=== PATIENT | male | born 1960 | race Caucasian/White ===

== ENCOUNTER 2018-04-15 18:20 | Inpatient (IN) | payer MEDICARE, MEDICAID ==
--- NOTE | 2018-04-15 18:44 | ED Physician Chart ---
ED Chief Complaint/HPI - Patient Information Date Seen:: 04/15/18 Time Seen:: 18:30 Chief Complaint:: inappropriate sexual behavior History of Present Illness:: Patient was sent here from his extended care facility for possible admission to [facility] department. He had reportedly been exhibiting inappropriate sexual behavior towards the female staff. Allergies:: Allergies Allergy/AdvReac Type Severity Reaction Status Date / Time No Known Allergies Allergy Verified 04/15/18 18:28 Historian:: Patient, EMS Review:: Nurse's Note Reviewed, Transfer documents Reviewed ED Review of Systems - Review of Systems General/Constitutional: No fever, No chills, No weight loss, No weakness, No diaphoresis, No edema, No loss of appetite Skin: No skin lesions, No rash, No bruising Head: No headache, No light-headedness Eyes: No loss of vision, No pain, No diplopia ENT: No earache, No nasal drainage, No sore throat, No tinnitus Neck: No neck pain, No swelling, No thyromegaly, No stiffness, No mass noted Cardio Vascular: No chest pain, No palpitations, No PND, No orthopnea, No edema Pulmonary: No SOB, No cough, No sputum, No wheezing GI: No nausea, No vomiting, No diarrhea, No pain, No melena, No hematochezia, No constipation, No hematemesis G/U: No dysuria, No frequency, No hematuria Musculoskeletal: No bone or joint pain, No back pain, No muscle pain Endocrine: No polyuria, No polydipsia Psychiatric: No depression, No anxiety, No suicidal ideation, Other (C under physical exam) Hematopoietic: No bruising, No lymphadenopathy Allergic/Immuno: No urticaria, No angioedema Neurological: No syncope, No focal symptoms, No weakness, No paresthesia, No headache, No seizure, No dizziness, No confusion, No vertigo ED Past Medical History - Past Medical History Obtainable: Yes Past Medical History: DM, CVA/TIA, Seizures, Other (history of dysphagia; status post pneumonia; history of pneumonia; status post TIA and CVA; ) Surgical History: PEG/GTube, other (left frontal craniotomy) Psychiatricy History: Other Medication: Reviewed (C physical exam) Family Medical History - Family Member Mother History Unknown: Yes Ethnicity: Unknown Living Status: Unknown Hx Family Cancer: (unknown) Hx Family Coronary Artery Disease: (unknown) Hx Family Congestive Heart Failure: (unknown) Hx Family Hypertension: (unknown) Hx Family Stroke: (unknown) Hx Family Diabetes: (unknown) Hx Family Seizures: (unknown) Hx Family Dementia: (unknown) Hx Family AIDS: (unknown) Hx Family COPD: (unknown) Hx Family Hepatitis: (unknown) Hx Family Psychiatric Problems: (unknown) Hx Family Tuberculosis: (unknown) ED Physical Exam - Physical Examination General/Constitutional: Awake, Well-developed, well-nourished, Alert, No distress Other Gen/Cons comments:: Does not know the correct year Head: Atraumatic Eyes: Lids, conjuctiva normal, PERRL Skin: Nl inspection, No rash, No skin lesions, No ecchymosis ENMT: External ears, nose nl, TM canals nl, Nasal exam nl Other ENMT comments:: Edentulous Neck: No nuchal rigidity Respiratory: No Wheeze/Rhonchi/Rales Other Respiratory comments:: Harsh breath sounds Cardio Vascular: RRR, No murmur, gallop, rubs GI: No tenderness/rebounding/guarding : No CVA tenderness Extremities: Normal digits & nails Neuro/Psych: No focal deficits Misc: Normal back ED Labs/Radiology/EKG Results - EKG Interpretations Rate & Rhythm: normal sinus rhythm with a rate of 83 Dickinson: normal ED Assessment - Assessment General Assessment: Signed out to Dr. Umanzor at 1900. ED Septic Shock - . Is Septic Shock (SBP<90, OR Lactate>4 mmol\L) present?: No ED Reassessment (Disposition) - Reassessment Reassessment Condition:: Unchanged - Diagnosis Diagnosis:: Inappropriate sexual behavior - Patient Disposition Admitted to:: [facility] Admitting Medical Physician:: Cinthia Sanders Admitting Psych Physician:: Jose F Carrion Condition at Disposition:: Stable, Unchanged
[2018-04-15 19:01] LABS: % BASOPHILS 0.8 % (0.0-2.0); % EOSINOPHILS 5.2 % (0.0-5.0); % LYMPHOCYTES 19.8 % (20.0-50.0); % MONOCYTES 6.9 % (2.0-10.0); % NEUTROPHILS 67.3 % (40.0-80.0); BASOPHILE ABSOLUTE 0.1 Th/cumm (0-0.2); EOSINOPHILE ABSOLUTE 0.7 Th/cmm (0.1-0.4); HEMATOCRIT 39.3 % (41.0-60); HEMOGLOBIN 13.2 gm/dL (12-16); LYMPHOCYTE ABSOLUTE 2.6 Th/cmm (1.5-3.0); MEAN CORPUSCULAR HGB CONC 33.7 pg (28.0-36.0); MEAN PLATELET VOLUME 6.8 fl; MONOCYTE ABSOLUTE 0.9 Th/cmm (0.3-1.0); NEUTROPHILE ABSOLUTE 8.7 Th/cmm (1.8-8.0); PLATELET COUNT 376 Th/cmm (150-400); RED BLOOD COUNT 4.57 Mil/cmm (4.30-5.70); RED CELL DISTRIBUTION WIDTH 14.9 % (11.5-20.0)
[2018-04-15 19:21] LABS: ACETAMINOPHEN < 10.0 ug/mL (10.0-30.0); ALB/GLOB RATIO 1.4 (1.0-1.8); ALBUMIN 3.7 gm/dL (4.2-5.5); ALKALINE PHOSPHATASE 97 U/L (34-104); ANION GAP 11.9 (7.0-16.0); BILIRUBIN,TOTAL 0.2 mg/dL (0.3-1.0); BUN - UREA NITROGEN 15 mg/dL (7-25); CARBON DIOXIDE 25.2 mEq/L (21.0-31.0); CHLORIDE 104 mEq/L (98-107); CHOLESTEROL 175 mg/dL (<200); CREATININE - SERUM 0.7 mg/dL (0.7-1.3); GFR AFRICAN-AMERICAN > 60.0 ml/min (>90); GFR NON AFRICAN-AMERICAN > 60.0 ml/min; GLUCOSE 110 mg/dL (70-105); HDL -HIGH DENSITY LIPOPROTEIN 40 mg/dL (23-92); POTASSIUM SERUM 4.1 mEq/L (3.5-5.1); SALICYLATES (ASPIRIN) < 25.0 mg/L (30.0-100.0); SGOT 11 U/L (13-39); SGPT/ALT 12 U/L (7-52); SODIUM SERUM 137 mEq/L (136-145); TOTAL PROTEIN,SERUM 6.4 gm/dL (6.0-8.3); TRIGLYCERIDES 197 mg/dL (<150)
[2018-04-15 20:04] LABS: URINE MICROSCOPIC INDICATED? YES; URINE SOURCE CLEAN C
[2018-04-15 20:07] LABS: URINE BILIRUBIN NEGATIVE (NEGATIVE); URINE BLOOD NEGATIVE (NEGATIVE); URINE GLUCOSE (UA) NEGATIVE (NEGATIVE); URINE KETONE NEGATIVE (NEGATIVE); URINE LEUKOCYTE ESTERASE NEGATIVE (NEGATIVE); URINE NITRATE NEGATIVE (NEGATIVE); URINE PH 6.5 (4.6 - 8.0); URINE PROTEIN NEGATIVE (NEGATIVE); URINE UROBILINOGEN 0.2 E.U./dL (0.2 - 1.0)
[2018-04-15 20:23] LABS: URINE CLARITY CLEAR (CLEAR); URINE COLOR YELLOW
[2018-04-15 20:24] LABS: URINE BACTERIA OCCASIONAL /hpf (NONE SEEN); URINE EPITHELIAL CELLS OCCASIONAL /lpf (FEW); URINE RBC NONE SEEN /hpf (0-5); URINE WBC 0-2 /hpf (0-5)
[2018-04-15 20:25] LABS: AMPHETAMINE URINE NEGATIVE (NEGATIVE); BARBITURATES URINE NEGATIVE (NEGATIVE); BENZODIAZEPINES QUAL URINE POSITIVE (NEGATIVE); CANNABINOID THC NEGATIVE (NEGATIVE); COCAINE METABOLITE QUAL URINE NEGATIVE (NEGATIVE); METHADONE URINE NEGATIVE (NEGATIVE); METHAMPHETAMINES QUAL URINE NEGATIVE (NEGATIVE); OPIATES (MORPHINE) QUAL. URINE NEGATIVE (NEGATIVE); PHENCYCLIDINE (PCP) URINE NEGATIVE (NEGATIVE); TRICYCLICS (TCA) QUAL. URINE NEGATIVE (NEGATIVE)
[2018-04-15 21:44] VITALS: BP 129/99
[2018-04-15] MEDS ORDERED: Fleet Enema 135 mL RC PRN (22:29)
[2018-04-15] MEDS ORDERED: Magnesium Hydroxide (MOM) 30 mL UDC GT PRN (22:29)
[2018-04-16] MEDS: Pantoprazole 40 mg/Packet GT SCH (06:36)
[2018-04-16] MEDS ORDERED: PANTOPRAZOLE SODIUM 20 MG GT SCH (07:30)
--- NOTE | 2018-04-16 08:33 | Diagnostic Imaging Report ---
Portable chest x-ray Time: 1942 History: CVA Allowing for portable technique the heart size is normal. No focal pulmonary parenchymal processes. No hilar or mediastinal abnormalities. Impression: No acute abnormalities.
[2018-04-16] MEDS ORDERED: Non-Formulary Item 1 EA (Cranberry Fruit [Cranberry] 450 MG) GT SCH (09:00)
[2018-04-16] MEDS: Ferrous Sulfate 300 MG/5 ML UDC PO SCH (09:01)
[2018-04-16] MEDS: Potassium Chloride Elixir 20 mEq /15 mL UDC GT SCH (09:01)
[2018-04-16] MEDS: Aspirin 81mg Chewable Tab GT SCH (09:04)
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
[2018-04-16 19:03] LABS: A1C % 6.3 % (4.0-6.0)
--- NOTE | 2018-04-17 04:58 | Psychiatric Evaluation ---
DATE OF SERVICE: 04/15/2018 PSYCHIATRIC INITIAL EVALUATION PATIENT'S AGE: 57-year-old. SEX: Male. PHYSICIAN: Dr. Carrion. CHIEF COMPLAINT: Agitation and irritability. HISTORY OF PRESENT ILLNESS: The patient is a 57-year-old male who was transferred from [facility] in [place] because of increased agitation and also aggressive behavior. The patient also was walking around the facility naked and had difficulty following the staff direction. The patient also has been in angry and in irritable mood and has been easily agitated. Also, has been exhibiting sexual inappropriate behavior. PAST PSYCHIATRIC HISTORY: The patient has a history of what seems to be psychosis versus schizoaffective disorder. PAST MEDICAL HISTORY: The patient had G-tube placed because of history of poor appetite. Otherwise, no major medical problems known. SOCIAL HISTORY: The patient lives in [facility]. No known alcohol or drug use. ALLERGIES: No known allergies. MENTAL STATUS EXAMINATION: The patient appears older than stated age. Irritable mood. Angry. Flat affect. Thought processes are circumstantial and tangential with flight of ideas. The patient denies auditory or visual hallucinations, but seems to be actively responding. The patient denies suicidal or homicidal ideations. The patient is alert and oriented to situation and place and person, but not to date. Impaired immediate memory, but intact, recent and remote memories. Poor insight and poor judgment. ASSESSMENT: PRIMARY DIAGNOSIS: Schizoaffective disorder, bipolar type, severe, with psychotic features. TREATMENT PLAN: Monitor the patient's behavior closely. We will start individual as well as milieu psychotherapy. Also, we will start the patient on Seroquel and we will adjust the dose. ESTIMATED LENGTH OF STAY: 5-7 days. THE PATIENT'S STRENGTHS AND WEAKNESSES: The patient's strength is not clear at this time. Weakness is poor impulse control and inappropriate sexual behavior and his psychosis. AFTER DISCHARGE PLAN: Outpatient treatment and followup will continue as an outpatient and the patient will return to [facility]. JOB# [id number]
[2018-04-17] MEDS: Pantoprazole 40 mg/Packet GT SCH (06:43)
[2018-04-17] MEDS: Aspirin 81mg Chewable Tab GT SCH (09:37)
[2018-04-17] MEDS: Ferrous Sulfate 300 MG/5 ML UDC PO SCH (09:37)
[2018-04-17] MEDS: Potassium Chloride Elixir 20 mEq /15 mL UDC GT SCH (09:39)
--- NOTE | 2018-04-17 12:03 | General Progress Note ---
Subjective - Review of Systems Events since last encounter: patient irritable confused Objective - Results Result Diagrams: 04/15/18 18:50 04/15/18 18:50 Recent Labs: Laboratory Last Values WBC 13.0 Th/cmm (4.8-10.8) H 04/15/18 18:50 RBC 4.57 Mil/cmm (4.30-5.70) 04/15/18 18:50 Hgb 13.2 gm/dL (12-16) 04/15/18 18:50 Hct 39.3 % (41.0-60) L 04/15/18 18:50 MCV 86.0 fl (80-99) 04/15/18 18:50 MCH 29.0 pg (26.0-30.0) 04/15/18 18:50 MCHC Differential 33.7 pg (28.0-36.0) 04/15/18 18:50 RDW 14.9 % (11.5-20.0) 04/15/18 18:50 Plt Count 376 Th/cmm (150-400) 04/15/18 18:50 MPV 6.8 fl 04/15/18 18:50 Neutrophils % 67.3 % (40.0-80.0) 04/15/18 18:50 Lymphocytes % 19.8 % (20.0-50.0) L 04/15/18 18:50 Monocytes % 6.9 % (2.0-10.0) 04/15/18 18:50 Eosinophils % 5.2 % (0.0-5.0) H 04/15/18 18:50 Basophils % 0.8 % (0.0-2.0) 04/15/18 18:50 Sodium 137 mEq/L (136-145) 04/15/18 18:50 Potassium 4.1 mEq/L (3.5-5.1) 04/15/18 18:50 Chloride 104 mEq/L (98-107) 04/15/18 18:50 Carbon Dioxide 25.2 mEq/L (21.0-31.0) 04/15/18 18:50 Anion Gap 11.9 (7.0-16.0) 04/15/18 18:50 BUN 15 mg/dL (7-25) 04/15/18 18:50 Creatinine 0.7 mg/dL (0.7-1.3) 04/15/18 18:50 Est GFR ( Amer) > 60.0 ml/min (>90) 04/15/18 18:50 Est GFR (Non-Af Amer) > 60.0 ml/min 04/15/18 18:50 BUN/Creatinine Ratio 21.4 04/15/18 18:50 Glucose 110 mg/dL (70-105) H 04/15/18 18:50 Hemoglobin A1c % 6.3 % (4.0-6.0) H 04/15/18 18:50 Calcium 9.0 mg/dL (8.6-10.3) 04/15/18 18:50 Total Bilirubin 0.2 mg/dL (0.3-1.0) L 04/15/18 18:50 AST 11 U/L (13-39) L 04/15/18 18:50 ALT 12 U/L (7-52) 04/15/18 18:50 Alkaline Phosphatase 97 U/L (34-104) 04/15/18 18:50 Total Protein 6.4 gm/dL (6.0-8.3) 04/15/18 18:50 Albumin 3.7 gm/dL (4.2-5.5) L 04/15/18 18:50 Globulin 2.7 gm/dL 04/15/18 18:50 Albumin/Globulin Ratio 1.4 (1.0-1.8) 04/15/18 18:50 Triglycerides 197 mg/dL (<150) H 04/15/18 18:50 Cholesterol 175 mg/dL (<200) 04/15/18 18:50 LDL Cholesterol Direct 120 mg/dL (75-193) 04/15/18 18:50 HDL Cholesterol 40 mg/dL (23-92) 04/15/18 18:50 TSH 0.96 uIU/ml (0.34-5.60) 04/15/18 18:50 Urine Source CLEAN C 04/15/18 19:00 Urine Color YELLOW 04/15/18 19:00 Urine Clarity CLEAR (CLEAR) 04/15/18 19:00 Urine pH 6.5 (4.6 - 8.0) 04/15/18 19:00 Ur Specific [place] 1.015 (1.005-1.030) 04/15/18 19:00 Urine Protein NEGATIVE mg/dL (NEGATIVE) 04/15/18 19:00 Urine Glucose (UA) NEGATIVE mg/dL (NEGATIVE) 04/15/18 19:00 Urine Ketones NEGATIVE mg/dL (NEGATIVE) 04/15/18 19:00 Urine Blood NEGATIVE (NEGATIVE) 04/15/18 19:00 Urine Nitrate NEGATIVE (NEGATIVE) 04/15/18 19:00 Urine Bilirubin NEGATIVE (NEGATIVE) 04/15/18 19:00 Urine Urobilinogen 0.2 E.U./dL (0.2 - 1.0) 04/15/18 19:00 Ur Leukocyte Esterase NEGATIVE (NEGATIVE) 04/15/18 19:00 Urine RBC NONE SEEN /hpf (0-5) 04/15/18 19:00 Urine WBC 0-2 /hpf (0-5) 04/15/18 19:00 Ur Epithelial Cells OCCASIONAL /lpf (FEW) 04/15/18 19:00 Urine Bacteria OCCASIONAL /hpf (NONE SEEN) 04/15/18 19:00 Salicylates < 25.0 mg/L (30.0-100.0) L 04/15/18 18:50 Urine Opiates Screen NEGATIVE (NEGATIVE) 04/15/18 19:00 Urine Methadone Screen NEGATIVE (NEGATIVE) 04/15/18 19:00 Acetaminophen < 10.0 ug/mL (10.0-30.0) L 04/15/18 18:50 Ur Barbiturates Screen NEGATIVE (NEGATIVE) 04/15/18 19:00 Ur Tricyclics Screen NEGATIVE (NEGATIVE) 04/15/18 19:00 Ur Phencyclidine Scrn NEGATIVE (NEGATIVE) 04/15/18 19:00 Amphetamines Screen NEGATIVE (NEGATIVE) 04/15/18 19:00 U Methamphetamines Scrn NEGATIVE (NEGATIVE) 04/15/18 19:00 U Benzodiazepines Scrn POSITIVE (NEGATIVE) H 04/15/18 19:00 U Cocaine Metab Screen NEGATIVE (NEGATIVE) 04/15/18 19:00 U Cannabinoids Screen NEGATIVE (NEGATIVE) 04/15/18 19:00 Ethyl Alcohol < 10 mg/dL (0-10) 04/15/18 18:50 - Physical Exam Vitals and I&O: Vital Signs Temp 98.2 F 04/17/18 06:32 Pulse 85 04/17/18 06:32 Resp 20 04/17/18 08:00 BP 127/72 04/17/18 06:32 Pulse Ox 95 04/17/18 06:32 Intake & Output 04/16/18 04/17/18 04/17/18 18:59 06:59 18:59 Intake Total 0 Balance 0 Weight (lbs) 111.13 kg Intake: Oral 0 Other: # Voids 3 # Bowel Movements 0 Weight Source Bedscale Active Medications: Current Medications Acetaminophen (Tylenol 650mg/20.3ml Suspension) 650 mg GT Q6HR PRN PRN Reason: MILD PAIN OR TEMP >100.5 Stop: 06/14/18 22:28 Acetylcysteine (Mucomyst 20%) 3 ml GT BID [facility] Stop: 06/15/18 08:59 Last Admin: 04/16/18 17:38 Dose: Not Given Ascorbic Acid (Vitamin C) 500 mg GT DAILY [facility] Stop: 06/15/18 08:59 Last Admin: 04/17/18 09:38 Dose: 500 mg Aspirin (Aspirin Chewable) 81 mg GT DAILY [facility] Stop: 06/15/18 08:59 Last Admin: 04/17/18 09:37 Dose: 81 mg Bisacodyl (Dulcolax 10 Mg Supp) 10 mg RC DAILY PRN PRN Reason: IF MOM INEFFECTIVE Stop: 06/14/18 22:28 Cephalexin Monohydrate (Keflex) 500 mg GT QID [facility] Stop: 04/20/18 22:00 Last Admin: 04/17/18 09:37 Dose: 500 mg Ferrous Sulfate (Iron) 300 mg PO DAILY [facility] Stop: 06/15/18 08:59 Last Admin: 04/17/18 09:37 Dose: 300 mg Lorazepam (Ativan) 1 mg GT Q4HR PRN; Protocol PRN Reason: Anxiety Stop: 05/15/18 21:44 Last Admin: 04/17/18 11:16 Dose: 1 mg Magnesium Hydroxide (Milk Of Magnesia) 30 ml GT HS PRN PRN Reason: Constipation Stop: 06/14/18 22:28 Midodrine (Proamatine) 5 mg GT TID [facility] Stop: 06/15/18 08:59 Last Admin: 04/17/18 09:44 Dose: 5 mg Pantoprazole Sodium (Protonix) 40 mg GT QDAC [facility] Stop: 06/15/18 07:29 Last Admin: 04/17/18 06:43 Dose: 40 mg Pioglitazone HCl (Actos) 15 mg GT DAILY [facility] Stop: 06/15/18 08:59 Last Admin: 04/17/18 09:37 Dose: 15 mg Potassium Chloride (Potassium Chloride Elixir) 20 meq GT DAILY [facility] Stop: 06/15/18 08:59 Last Admin: 04/17/18 09:39 Dose: 20 meq Quetiapine Fumarate (Seroquel) 50 mg PO TID [facility]; Protocol Stop: 06/15/18 08:59 Last Admin: 04/17/18 09:38 Dose: 50 mg Senna (Senna) 8.6 mg GT DAILY [facility] Stop: 06/15/18 08:59 Last Admin: 04/17/18 09:38 Dose: 8.6 mg Sodium Phosphate (Fleet Enema) 135 ml RC Q48H PRN PRN Reason: IF DULCOLAX INEFFECTIVE Stop: 06/14/18 22:28 Topiramate (Topamax) 100 mg GT DAILY [facility] Stop: 06/15/18 08:59 Last Admin: 04/17/18 09:38 Dose: 100 mg Zolpidem Tartrate (Ambien) 5 mg GT HS PRN PRN Reason: Insomnia Stop: 06/14/18 21:44 Last Admin: 04/15/18 22:06 Dose: 5 mg Assessment/Plan - Problem List Patient Problems: All Active Problems [employer] (Acute) Nutritional Asmnt/Malnutr-PDOC - Dietary Evaluation Malnutrition Findings (Please click <Entered> for more info): Nutritional Asmnt/Malnutrition Start: 04/16/18 14: 24 Text: Status: Complete Freq: Protocol: Document 04/16/18 14:24 LCHENG (Rec: 04/16/18 14:42 [email or web address] [id number]) Nutritional Asmnt/Malnutrition Patient General Information Nutritional Screening High Risk Diagnosis psychosis Pertinent Medical Hx/Surgical Hx DM, CVA/TIA, seizures, dysphagi, s/p PNA, PEG/Gtube, left frontal craniotomy Subjective Information Pt admited with Gtube noted. Pt seen sleeping soundly at time of visit. Spoke with RN, RN stated bolus TF was discontinued since pt is able to tolerate oral diet and ate very well, 100% of breakfast today. Gtube only for medications. Current Diet Order/ Nutrition Support pureed, nectar thick Pertinent Medications vit C, Iron, protonix, seroquel, kcl, senna Pertinent Labs 04/15 Glu 110, abl 3.7, triglycerides Nutritional Hx/Data Height 1.75 m Height (Calculated Centimeters) 175.3 Current Weight (lbs) 111.13 kg Weight (Calculated Kilograms) 111.1 Weight (Calculated Grams) 515839.1 [place] Body Weight 160 Body Mass Index (BMI) 36.1 Weight Status Overweight GI Symptoms GI Symptoms None Last BM none Difficult in: None Skin Integrity/Comment: dryness Current %PO Good (75-100%) Estimated Nutritional Goals BEE in Kcals: Adj wt of IBW Calories/Kcals/Kg 25-30 Kcals Calculated 1011-8394 Protein: Adj wt of IBW Protein g/k Protein Calculated 82 Fluid: ml 2049-246ml (1ml/kcal) Nutritional Problem No current Nutrition Prob Problem N/A Malnutrition Alert Is there a minimum of two criteria No selected? Query Text:Check all the applicable criteria. A minimum of two criteria are recommended for diagnosis of either severe or non-severe malnutrition. Malnutrition Related to Morbid Obesity Malnutrition related to morbid obesity No Intervention/Recommendation Comments 1. Continue with pureed nectar thick diet as ordered. 2. Monitor PO intake, wt, labs and skin integrity 3. F/U as low risk in 7 days, 04/23, PO check 04/19 Expected Outcomes/Goals Expected Outcomes/Goals 1. PO intake to meet at least 75% of nutritional needs. 2. Wt stability, skin to remain intact, labs to approach WNL.
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
[2018-04-18] MEDS: Pantoprazole 40 mg/Packet GT SCH (06:30)
--- NOTE | 2018-04-18 08:45 | Diagnostic Imaging Report ---
CHEST X-RAY: AP view INDICATION: Pneumonia COMPARISON: 04/15/2017 FINDINGS: Slight increased right basal lung markings are noted. There is 3 mm nodularity of the right upper lung zone projecting between third and fourth right ribs. There is no focal consolidation or pleural effusions The heart is normal in size. The osseous structures demonstrate no acute abnormalities. IMPRESSION: Slight increased right basal lung markings favoring atelectasis versus less likely infiltrate. No focal consolidation identified. 3 mm nodularity of the right lower lung zone projecting along the third and fourth right ribs. Findings may be due to a small granuloma. Correlation with old exams would be helpful for comparison. Consider short-term follow-up x-ray or CT in 3 months.
[2018-04-18] MEDS: Aspirin 81mg Chewable Tab GT SCH (10:07)
[2018-04-18] MEDS: Potassium Chloride Elixir 20 mEq /15 mL UDC GT SCH (10:07)
[2018-04-18] MEDS: Ferrous Sulfate 300 MG/5 ML UDC PO SCH (10:09)
[2018-04-18] MEDS ORDERED: Haloperidol Lactate 5 mg/mL 1mL Vial ONE (11:32)
[2018-04-18] MEDS: NYSTATIN 100000 UNITS/GM POWD TP SCH ×2 (13:00→17:21)
[2018-04-18] MEDS: Haloperidol Lactate 5 mg/mL 1mL Vial IM ONE (13:02)
[2018-04-18] MEDS: Albuterol Nebulizer 2.5mg/3mL HHN PRN (19:06)
[2018-04-19] MEDS: Pantoprazole 40 mg/Packet GT SCH (06:43)
[2018-04-19] MEDS: Albuterol Nebulizer 2.5mg/3mL HHN PRN (07:00)
[2018-04-19] MEDS: NYSTATIN 100000 UNITS/GM POWD TP SCH ×2 (08:08→16:45)
[2018-04-19] MEDS: Ferrous Sulfate 300 MG/5 ML UDC PO SCH (08:08)
[2018-04-19] MEDS: Aspirin 81mg Chewable Tab GT SCH (08:09)
[2018-04-19] MEDS: Potassium Chloride Elixir 20 mEq /15 mL UDC GT SCH (08:11)
[2018-04-19] MEDS ORDERED: Haloperidol Lactate 5 mg/mL 1mL Vial ONE (10:21)
--- NOTE | 2018-04-19 10:22 | Infectious Disease Prog Note ---
Infectious Disease Subjective - Review of Systems Service Date: 04/19/18 Subjective: There is no new change, no fever. Infectious Disease Objective - Results Result Diagrams: 04/15/18 18:50 04/15/18 18:50 Recent Labs: Laboratory Last Values WBC 13.0 Th/cmm (4.8-10.8) H 04/15/18 18:50 RBC 4.57 Mil/cmm (4.30-5.70) 04/15/18 18:50 Hgb 13.2 gm/dL (12-16) 04/15/18 18:50 Hct 39.3 % (41.0-60) L 04/15/18 18:50 MCV 86.0 fl (80-99) 04/15/18 18:50 MCH 29.0 pg (26.0-30.0) 04/15/18 18:50 MCHC Differential 33.7 pg (28.0-36.0) 04/15/18 18:50 RDW 14.9 % (11.5-20.0) 04/15/18 18:50 Plt Count 376 Th/cmm (150-400) 04/15/18 18:50 MPV 6.8 fl 04/15/18 18:50 Neutrophils % 67.3 % (40.0-80.0) 04/15/18 18:50 Lymphocytes % 19.8 % (20.0-50.0) L 04/15/18 18:50 Monocytes % 6.9 % (2.0-10.0) 04/15/18 18:50 Eosinophils % 5.2 % (0.0-5.0) H 04/15/18 18:50 Basophils % 0.8 % (0.0-2.0) 04/15/18 18:50 Sodium 137 mEq/L (136-145) 04/15/18 18:50 Potassium 4.1 mEq/L (3.5-5.1) 04/15/18 18:50 Chloride 104 mEq/L (98-107) 04/15/18 18:50 Carbon Dioxide 25.2 mEq/L (21.0-31.0) 04/15/18 18:50 Anion Gap 11.9 (7.0-16.0) 04/15/18 18:50 BUN 15 mg/dL (7-25) 04/15/18 18:50 Creatinine 0.7 mg/dL (0.7-1.3) 04/15/18 18:50 Est GFR ( Amer) > 60.0 ml/min (>90) 04/15/18 18:50 Est GFR (Non-Af Amer) > 60.0 ml/min 04/15/18 18:50 BUN/Creatinine Ratio 21.4 04/15/18 18:50 Glucose 110 mg/dL (70-105) H 04/15/18 18:50 Hemoglobin A1c % 6.3 % (4.0-6.0) H 04/15/18 18:50 Calcium 9.0 mg/dL (8.6-10.3) 04/15/18 18:50 Total Bilirubin 0.2 mg/dL (0.3-1.0) L 04/15/18 18:50 AST 11 U/L (13-39) L 04/15/18 18:50 ALT 12 U/L (7-52) 04/15/18 18:50 Alkaline Phosphatase 97 U/L (34-104) 04/15/18 18:50 Total Protein 6.4 gm/dL (6.0-8.3) 04/15/18 18:50 Albumin 3.7 gm/dL (4.2-5.5) L 04/15/18 18:50 Globulin 2.7 gm/dL 04/15/18 18:50 Albumin/Globulin Ratio 1.4 (1.0-1.8) 04/15/18 18:50 Triglycerides 197 mg/dL (<150) H 04/15/18 18:50 Cholesterol 175 mg/dL (<200) 04/15/18 18:50 LDL Cholesterol Direct 120 mg/dL (75-193) 04/15/18 18:50 HDL Cholesterol 40 mg/dL (23-92) 04/15/18 18:50 TSH 0.96 uIU/ml (0.34-5.60) 04/15/18 18:50 Urine Source CLEAN C 04/15/18 19:00 Urine Color YELLOW 04/15/18 19:00 Urine Clarity CLEAR (CLEAR) 04/15/18 19:00 Urine pH 6.5 (4.6 - 8.0) 04/15/18 19:00 Ur Specific [place] 1.015 (1.005-1.030) 04/15/18 19:00 Urine Protein NEGATIVE mg/dL (NEGATIVE) 04/15/18 19:00 Urine Glucose (UA) NEGATIVE mg/dL (NEGATIVE) 04/15/18 19:00 Urine Ketones NEGATIVE mg/dL (NEGATIVE) 04/15/18 19:00 Urine Blood NEGATIVE (NEGATIVE) 04/15/18 19:00 Urine Nitrate NEGATIVE (NEGATIVE) 04/15/18 19:00 Urine Bilirubin NEGATIVE (NEGATIVE) 04/15/18 19:00 Urine Urobilinogen 0.2 E.U./dL (0.2 - 1.0) 04/15/18 19:00 Ur Leukocyte Esterase NEGATIVE (NEGATIVE) 04/15/18 19:00 Urine RBC NONE SEEN /hpf (0-5) 04/15/18 19:00 Urine WBC 0-2 /hpf (0-5) 04/15/18 19:00 Ur Epithelial Cells OCCASIONAL /lpf (FEW) 04/15/18 19:00 Urine Bacteria OCCASIONAL /hpf (NONE SEEN) 04/15/18 19:00 Salicylates < 25.0 mg/L (30.0-100.0) L 04/15/18 18:50 Urine Opiates Screen NEGATIVE (NEGATIVE) 04/15/18 19:00 Urine Methadone Screen NEGATIVE (NEGATIVE) 04/15/18 19:00 Acetaminophen < 10.0 ug/mL (10.0-30.0) L 04/15/18 18:50 Ur Barbiturates Screen NEGATIVE (NEGATIVE) 04/15/18 19:00 Ur Tricyclics Screen NEGATIVE (NEGATIVE) 04/15/18 19:00 Ur Phencyclidine Scrn NEGATIVE (NEGATIVE) 04/15/18 19:00 Amphetamines Screen NEGATIVE (NEGATIVE) 04/15/18 19:00 U Methamphetamines Scrn NEGATIVE (NEGATIVE) 04/15/18 19:00 U Benzodiazepines Scrn POSITIVE (NEGATIVE) H 04/15/18 19:00 U Cocaine Metab Screen NEGATIVE (NEGATIVE) 04/15/18 19:00 U Cannabinoids Screen NEGATIVE (NEGATIVE) 04/15/18 19:00 Ethyl Alcohol < 10 mg/dL (0-10) 04/15/18 18:50 RPR NONREACTIVE (NONREACTIVE) 04/15/18 18:50 HIV 1&2 Antibody Screen NEGATIVE (NEG) 04/18/18 08:20 - Physical Exam Vitals and I&O: Vital Signs Temp 97.2 F 04/19/18 06:31 Pulse 95 04/19/18 07:00 Resp 20 04/19/18 07:00 BP 115/65 04/19/18 06:31 Pulse Ox 94 04/19/18 07:00 Intake & Output 04/18/18 04/19/18 04/19/18 18:59 06:59 18:59 Intake Total 1120 Balance 1120 Intake: Oral 1120 Other: # Voids 3 # Bowel Movements 1 Active Medications: Current Medications Acetaminophen (Tylenol 650mg/20.3ml Suspension) 650 mg GT Q6HR PRN PRN Reason: MILD PAIN OR TEMP >100.5 Stop: 06/14/18 22:28 Acetylcysteine (Mucomyst 20%) 3 ml GT BID [facility] Stop: 06/15/18 08:59 Last Admin: 04/19/18 07:00 Dose: 3 ml Albuterol Sulfate (Albuterol 2.5mg/3ml Neb Ud) 2.5 mg HHN BIDRT PRN PRN Reason: Wheezing Stop: 06/16/18 17:55 Last Admin: 04/19/18 07:00 Dose: 2.5 mg Ascorbic Acid (Vitamin C) 500 mg GT DAILY [facility] Stop: 06/15/18 08:59 Last Admin: 04/19/18 08:09 Dose: 500 mg Aspirin (Aspirin Chewable) 81 mg GT DAILY [facility] Stop: 06/15/18 08:59 Last Admin: 04/19/18 08:09 Dose: 81 mg Bisacodyl (Dulcolax 10 Mg Supp) 10 mg RC DAILY PRN PRN Reason: IF MOM INEFFECTIVE Stop: 06/14/18 22:28 Cephalexin Monohydrate (Keflex) 500 mg GT QID [facility] Stop: 04/20/18 22:00 Last Admin: 04/19/18 08:09 Dose: 500 mg Ferrous Sulfate (Iron) 300 mg PO DAILY [facility] Stop: 06/15/18 08:59 Last Admin: 04/19/18 08:08 Dose: 300 mg Lorazepam (Ativan) 1 mg GT Q4HR PRN; Protocol PRN Reason: Anxiety Stop: 05/15/18 21:44 Last Admin: 04/18/18 10:07 Dose: 1 mg Magnesium Hydroxide (Milk Of Magnesia) 30 ml GT HS PRN PRN Reason: Constipation Stop: 06/14/18 22:28 Midodrine (Proamatine) 5 mg GT TID [facility] Stop: 06/15/18 08:59 Last Admin: 04/19/18 08:10 Dose: 5 mg Mupirocin (Bactroban Oint) 1 appl NS BID [facility] Stop: 04/22/18 17:01 Last Admin: 04/19/18 08:09 Dose: 1 appl Nystatin (Nystop) 0 units TP BID [facility] Stop: 06/16/18 16:59 Last Admin: 04/19/18 08:08 Dose: 100,000 units Ondansetron HCl (Zofran Odt) 4 mg PO Q6H PRN PRN Reason: Nausea / Vomiting Stop: 06/16/18 17:52 Pantoprazole Sodium (Protonix) 40 mg GT QDAC [facility] Stop: 06/15/18 07:29 Last Admin: 04/19/18 06:43 Dose: 40 mg Pioglitazone HCl (Actos) 15 mg GT DAILY [facility] Stop: 06/15/18 08:59 Last Admin: 04/19/18 08:09 Dose: 15 mg Potassium Chloride (Potassium Chloride Elixir) 20 meq GT DAILY [facility] Stop: 06/15/18 08:59 Last Admin: 04/19/18 08:11 Dose: 20 meq Quetiapine Fumarate (Seroquel) 50 mg PO TID [facility]; Protocol Stop: 06/15/18 08:59 Last Admin: 04/19/18 08:08 Dose: 50 mg Senna (Senna) 8.6 mg GT DAILY [facility] Stop: 06/15/18 08:59 Last Admin: 04/19/18 08:09 Dose: 8.6 mg Sodium Phosphate (Fleet Enema) 135 ml RC Q48H PRN PRN Reason: IF DULCOLAX INEFFECTIVE Stop: 06/14/18 22:28 Topiramate (Topamax) 100 mg GT DAILY [facility] Stop: 06/15/18 08:59 Last Admin: 04/19/18 08:08 Dose: 100 mg Zolpidem Tartrate (Ambien) 5 mg GT HS PRN PRN Reason: Insomnia Stop: 06/14/18 21:44 Last Admin: 04/17/18 21:36 Dose: 5 mg General: no acute distress, well developed, well nourished HEENT: atraumatic, normocephalic, PERRLA Neck: supple, no thyromegaly Cardiovascular: S1S2, regular Lungs: clear to auscultation bilaterally, clear to percussion Abdomen: soft, no tender, no distended, no mass, no rebound, no hepatomegaly, no splenomegaly Extremities: no cyanosis, no clubbing, no edema Neurological: awake, alert, oriented Skin: intact Infectious Disease Assmt/Plan - Problem List Patient Problems: All Active Problems [employer] STAFF (Acute) - Assessment Assessment: Leukocytosis Psychosis - Plan Plan: Check CBC. Nutritional Asmnt/Malnutr-PDOC - Dietary Evaluation Malnutrition Findings (Please click <Entered> for more info): Nutritional Asmnt/Malnutrition Start: 04/16/18 14: 24 Text: Status: Complete Freq: Protocol: Document 04/16/18 14:24 [email or web address] (Rec: 04/16/18 14:42 [email or web address]) Nutritional Asmnt/Malnutrition Patient General Information Nutritional Screening High Risk Diagnosis psychosis Pertinent Medical Hx/Surgical Hx DM, CVA/TIA, seizures, dysphagi, s/p PNA, PEG/Gtube, left frontal craniotomy Subjective Information Pt admited with Gtube noted. Pt seen sleeping soundly at time of visit. Spoke with RN, RN stated bolus TF was discontinued since pt is able to tolerate oral diet and ate very well, 100% of breakfast today. Gtube only for medications. Current Diet Order/ Nutrition Support pureed, nectar thick Pertinent Medications vit C, Iron, protonix, seroquel, kcl, senna Pertinent Labs 04/15 Glu 110, abl 3.7, triglycerides Nutritional Hx/Data Height 1.75 m Height (Calculated Centimeters) 175.3 Current Weight (lbs) 111.13 kg Weight (Calculated Kilograms) 111.1 Weight (Calculated Grams) 932384.1 [place] Body Weight 160 Body Mass Index (BMI) 36.1 Weight Status Overweight GI Symptoms GI Symptoms None Last BM none Difficult in: None Skin Integrity/Comment: dryness Current %PO Good (75-100%) Estimated Nutritional Goals BEE in Kcals: Adj wt of IBW Calories/Kcals/Kg 25-30 Kcals Calculated 6060-8020 Protein: Adj wt of IBW Protein g/k Protein Calculated 82 Fluid: ml 2050-2460ml (1ml/kcal) Nutritional Problem No current Nutrition Prob Problem N/A Malnutrition Alert Is there a minimum of two criteria No selected? Query Text:Check all the applicable criteria. A minimum of two criteria are recommended for diagnosis of either severe or non-severe malnutrition. Malnutrition Related to Morbid Obesity Malnutrition related to morbid obesity No Intervention/Recommendation Comments 1. Continue with pureed nectar thick diet as ordered. 2. Monitor PO intake, wt, labs and skin integrity 3. F/U as low risk in 7 days, 04/23, PO check 04/19 Expected Outcomes/Goals Expected Outcomes/Goals 1. PO intake to meet at least 75% of nutritional needs. 2. Wt stability, skin to remain intact, labs to approach WNL.
[2018-04-19] MEDS ORDERED: Haloperidol Lactate 5 mg/mL 1mL Vial IM ONE (10:39)
[2018-04-19] MEDS: Haloperidol Lactate 5 mg/mL 1mL Vial IM ONE (10:42)
[2018-04-19 11:07] LABS: % BASOPHILS 0.4 % (0.0-2.0); % EOSINOPHILS 2.7 % (0.0-5.0); % LYMPHOCYTES 18.1 % (20.0-50.0); % NEUTROPHILS 71.8 % (40.0-80.0); EOSINOPHILE ABSOLUTE 0.3 Th/cmm (0.1-0.4); HEMATOCRIT 38.9 % (41.0-60); LYMPHOCYTE ABSOLUTE 1.7 Th/cmm (1.5-3.0); MEAN CELL VOLUME 86.5 fl (80-99); MEAN CORPUSCULAR HEMOGLOBIN 28.9 pg (26.0-30.0); MEAN CORPUSCULAR HGB CONC 33.4 pg (28.0-36.0); MEAN PLATELET VOLUME 6.9 fl; MONOCYTE ABSOLUTE 0.7 Th/cmm (0.3-1.0); NEUTROPHILE ABSOLUTE 6.8 Th/cmm (1.8-8.0); PLATELET COUNT 325 Th/cmm (150-400); RED CELL DISTRIBUTION WIDTH 15.5 % (11.5-20.0); WHITE BLOOD COUNT 9.5 Th/cmm (4.8-10.8)
[2018-04-20] MEDS: Pantoprazole 40 mg/Packet GT SCH (06:55)
[2018-04-20] MEDS: Aspirin 81mg Chewable Tab GT SCH (09:15)
[2018-04-20] MEDS: Ferrous Sulfate 300 MG/5 ML UDC PO SCH (09:15)
[2018-04-20] MEDS: NYSTATIN 100000 UNITS/GM POWD TP SCH (09:16)
[2018-04-20] MEDS: Potassium Chloride Elixir 20 mEq /15 mL UDC GT SCH (09:24)
--- NOTE | 2018-04-20 10:52 | Infectious Disease Prog Note ---
Infectious Disease Subjective - Review of Systems Service Date: 04/20/18 Subjective: There is no new change, no fever. Infectious Disease Objective - Results Result Diagrams: 04/19/18 11:00 04/15/18 18:50 Recent Labs: Laboratory Last Values WBC 9.5 Th/cmm (4.8-10.8) 04/19/18 11:00 RBC 4.50 Mil/cmm (4.30-5.70) 04/19/18 11:00 Hgb 13.0 gm/dL (12-16) 04/19/18 11:00 Hct 38.9 % (41.0-60) L 04/19/18 11:00 MCV 86.5 fl (80-99) 04/19/18 11:00 MCH 28.9 pg (26.0-30.0) 04/19/18 11:00 MCHC Differential 33.4 pg (28.0-36.0) 04/19/18 11:00 RDW 15.5 % (11.5-20.0) 04/19/18 11:00 Plt Count 325 Th/cmm (150-400) 04/19/18 11:00 MPV 6.9 fl 04/19/18 11:00 Neutrophils % 71.8 % (40.0-80.0) 04/19/18 11:00 Lymphocytes % 18.1 % (20.0-50.0) L 04/19/18 11:00 Monocytes % 7.0 % (2.0-10.0) 04/19/18 11:00 Eosinophils % 2.7 % (0.0-5.0) 04/19/18 11:00 Basophils % 0.4 % (0.0-2.0) 04/19/18 11:00 Sodium 137 mEq/L (136-145) 04/15/18 18:50 Potassium 4.1 mEq/L (3.5-5.1) 04/15/18 18:50 Chloride 104 mEq/L (98-107) 04/15/18 18:50 Carbon Dioxide 25.2 mEq/L (21.0-31.0) 04/15/18 18:50 Anion Gap 11.9 (7.0-16.0) 04/15/18 18:50 BUN 15 mg/dL (7-25) 04/15/18 18:50 Creatinine 0.7 mg/dL (0.7-1.3) 04/15/18 18:50 Est GFR ( Amer) > 60.0 ml/min (>90) 04/15/18 18:50 Est GFR (Non-Af Amer) > 60.0 ml/min 04/15/18 18:50 BUN/Creatinine Ratio 21.4 04/15/18 18:50 Glucose 110 mg/dL (70-105) H 04/15/18 18:50 Hemoglobin A1c % 6.3 % (4.0-6.0) H 04/15/18 18:50 Calcium 9.0 mg/dL (8.6-10.3) 04/15/18 18:50 Total Bilirubin 0.2 mg/dL (0.3-1.0) L 04/15/18 18:50 AST 11 U/L (13-39) L 04/15/18 18:50 ALT 12 U/L (7-52) 04/15/18 18:50 Alkaline Phosphatase 97 U/L (34-104) 04/15/18 18:50 Total Protein 6.4 gm/dL (6.0-8.3) 04/15/18 18:50 Albumin 3.7 gm/dL (4.2-5.5) L 04/15/18 18:50 Globulin 2.7 gm/dL 04/15/18 18:50 Albumin/Globulin Ratio 1.4 (1.0-1.8) 04/15/18 18:50 Triglycerides 197 mg/dL (<150) H 04/15/18 18:50 Cholesterol 175 mg/dL (<200) 04/15/18 18:50 LDL Cholesterol Direct 120 mg/dL (75-193) 04/15/18 18:50 HDL Cholesterol 40 mg/dL (23-92) 04/15/18 18:50 Vitamin B12 486 pg/mL (232-1245) 04/18/18 08:20 TSH 0.96 uIU/ml (0.34-5.60) 04/15/18 18:50 Urine Source CLEAN C 04/15/18 19:00 Urine Color YELLOW 04/15/18 19:00 Urine Clarity CLEAR (CLEAR) 04/15/18 19:00 Urine pH 6.5 (4.6 - 8.0) 04/15/18 19:00 Ur Specific [place] 1.015 (1.005-1.030) 04/15/18 19:00 Urine Protein NEGATIVE mg/dL (NEGATIVE) 04/15/18 19:00 Urine Glucose (UA) NEGATIVE mg/dL (NEGATIVE) 04/15/18 19:00 Urine Ketones NEGATIVE mg/dL (NEGATIVE) 04/15/18 19:00 Urine Blood NEGATIVE (NEGATIVE) 04/15/18 19:00 Urine Nitrate NEGATIVE (NEGATIVE) 04/15/18 19:00 Urine Bilirubin NEGATIVE (NEGATIVE) 04/15/18 19:00 Urine Urobilinogen 0.2 E.U./dL (0.2 - 1.0) 04/15/18 19:00 Ur Leukocyte Esterase NEGATIVE (NEGATIVE) 04/15/18 19:00 Urine RBC NONE SEEN /hpf (0-5) 04/15/18 19:00 Urine WBC 0-2 /hpf (0-5) 04/15/18 19:00 Ur Epithelial Cells OCCASIONAL /lpf (FEW) 04/15/18 19:00 Urine Bacteria OCCASIONAL /hpf (NONE SEEN) 04/15/18 19:00 Salicylates < 25.0 mg/L (30.0-100.0) L 04/15/18 18:50 Urine Opiates Screen NEGATIVE (NEGATIVE) 04/15/18 19:00 Urine Methadone Screen NEGATIVE (NEGATIVE) 04/15/18 19:00 Acetaminophen < 10.0 ug/mL (10.0-30.0) L 04/15/18 18:50 Ur Barbiturates Screen NEGATIVE (NEGATIVE) 04/15/18 19:00 Ur Tricyclics Screen NEGATIVE (NEGATIVE) 04/15/18 19:00 Ur Phencyclidine Scrn NEGATIVE (NEGATIVE) 04/15/18 19:00 Amphetamines Screen NEGATIVE (NEGATIVE) 04/15/18 19:00 U Methamphetamines Scrn NEGATIVE (NEGATIVE) 04/15/18 19:00 U Benzodiazepines Scrn POSITIVE (NEGATIVE) H 04/15/18 19:00 U Cocaine Metab Screen NEGATIVE (NEGATIVE) 04/15/18 19:00 U Cannabinoids Screen NEGATIVE (NEGATIVE) 04/15/18 19:00 Ethyl Alcohol < 10 mg/dL (0-10) 04/15/18 18:50 RPR NONREACTIVE (NONREACTIVE) 04/15/18 18:50 HIV 1&2 Antibody Screen NEGATIVE (NEG) 04/18/18 08:20 - Physical Exam Vitals and I&O: Vital Signs Temp 98.1 F 04/20/18 06:36 Pulse 91 04/20/18 06:36 Resp 20 04/20/18 06:36 BP 123/81 04/20/18 06:36 Pulse Ox 97 04/20/18 06:36 Intake & Output 04/19/18 04/20/18 04/20/18 18:59 06:59 18:59 Intake Total 1200 0 Output Total 3 Balance 1200 -3 Weight (lbs) 111.13 kg Intake: Oral 1200 0 Output: Stool 3 Urine/Stool Mix 0 Other: # Voids 3 # Bowel Movements 1 0 Weight Source Bedscale Active Medications: Current Medications Acetaminophen (Tylenol 650mg/20.3ml Suspension) 650 mg GT Q6HR PRN PRN Reason: MILD PAIN OR TEMP >100.5 Stop: 06/14/18 22:28 Acetylcysteine (Mucomyst 20%) 3 ml GT BID [facility] Stop: 06/15/18 08:59 Last Admin: 04/20/18 06:28 Dose: Not Given Albuterol Sulfate (Albuterol 2.5mg/3ml Neb Ud) 2.5 mg HHN BIDRT PRN PRN Reason: Wheezing Stop: 06/16/18 17:55 Last Admin: 04/19/18 07:00 Dose: 2.5 mg Ascorbic Acid (Vitamin C) 500 mg GT DAILY [facility] Stop: 06/15/18 08:59 Last Admin: 04/20/18 09:15 Dose: 500 mg Aspirin (Aspirin Chewable) 81 mg GT DAILY [facility] Stop: 06/15/18 08:59 Last Admin: 04/20/18 09:15 Dose: 81 mg Bisacodyl (Dulcolax 10 Mg Supp) 10 mg RC DAILY PRN PRN Reason: IF MOM INEFFECTIVE Stop: 06/14/18 22:28 Cephalexin Monohydrate (Keflex) 500 mg GT QID [facility] Stop: 04/20/18 22:00 Last Admin: 04/20/18 09:15 Dose: 500 mg Ferrous Sulfate (Iron) 300 mg PO DAILY [facility] Stop: 06/15/18 08:59 Last Admin: 04/20/18 09:15 Dose: 300 mg Lorazepam (Ativan) 1 mg GT Q4HR PRN; Protocol PRN Reason: Anxiety Stop: 05/15/18 21:44 Last Admin: 04/20/18 09:15 Dose: 1 mg Magnesium Hydroxide (Milk Of Magnesia) 30 ml GT HS PRN PRN Reason: Constipation Stop: 06/14/18 22:28 Midodrine (Proamatine) 5 mg GT TID [facility] Stop: 06/15/18 08:59 Last Admin: 04/20/18 09:16 Dose: 5 mg Mupirocin (Bactroban Oint) 1 appl NS BID [facility] Stop: 04/22/18 17:01 Last Admin: 04/20/18 09:17 Dose: 1 appl Nystatin (Nystop) 0 units TP BID [facility] Stop: 06/16/18 16:59 Last Admin: 04/20/18 09:16 Dose: 100,000 units Ondansetron HCl (Zofran Odt) 4 mg PO Q6H PRN PRN Reason: Nausea / Vomiting Stop: 06/16/18 17:52 Pantoprazole Sodium (Protonix) 40 mg GT QDAC [facility] Stop: 06/15/18 07:29 Last Admin: 04/20/18 06:55 Dose: 40 mg Pioglitazone HCl (Actos) 15 mg GT DAILY [facility] Stop: 06/15/18 08:59 Last Admin: 04/20/18 09:22 Dose: 15 mg Potassium Chloride (Potassium Chloride Elixir) 20 meq GT DAILY [facility] Stop: 06/15/18 08:59 Last Admin: 04/20/18 09:24 Dose: 20 meq Quetiapine Fumarate (Seroquel) 75 mg PO TID [facility]; Protocol Stop: 06/19/18 08:59 Last Admin: 04/20/18 09:23 Dose: 75 mg Senna (Senna) 8.6 mg GT DAILY [facility] Stop: 06/15/18 08:59 Last Admin: 04/20/18 09:23 Dose: 8.6 mg Sodium Phosphate (Fleet Enema) 135 ml RC Q48H PRN PRN Reason: IF DULCOLAX INEFFECTIVE Stop: 06/14/18 22:28 Topiramate (Topamax) 150 mg GT DAILY [facility] Stop: 06/19/18 08:59 Last Admin: 04/20/18 09:25 Dose: 150 mg Zolpidem Tartrate (Ambien) 5 mg GT HS PRN PRN Reason: Insomnia Stop: 06/14/18 21:44 Last Admin: 04/19/18 20:30 Dose: 5 mg General: no acute distress, well developed, well nourished HEENT: atraumatic, normocephalic, PERRLA, EOMI Neck: supple, no thyromegaly Cardiovascular: S1S2, regular Lungs: clear to auscultation bilaterally, clear to percussion Abdomen: soft, no tender, no distended, no mass, no hepatomegaly Extremities: no cyanosis, no clubbing, no edema Neurological: awake, alert, oriented Skin: intact Infectious Disease Assmt/Plan - Problem List Patient Problems: All Active Problems [employer]AFF (Acute) - Assessment Assessment: Leukocytosis - improved. Psychosis - Plan Plan: No need of antibiotics. I will s/o please call me as needed. Nutritional Asmnt/Malnutr-PDOC - Dietary Evaluation Malnutrition Findings (Please click <Entered> for more info): Nutritional Asmnt/Malnutrition Start: 04/16/18 14: 24 Text: Status: Complete Freq: Protocol: Document 04/16/18 14:24 [email or web address] (Rec: 04/16/18 14:42 [email or web address]) Nutritional Asmnt/Malnutrition Patient General Information Nutritional Screening High Risk Diagnosis psychosis Pertinent Medical Hx/Surgical Hx DM, CVA/TIA, seizures, dysphagi, s/p PNA, PEG/Gtube, left frontal craniotomy Subjective Information Pt admited with Gtube noted. Pt seen sleeping soundly at time of visit. Spoke with RN, RN stated bolus TF was discontinued since pt is able to tolerate oral diet and ate very well, 100% of breakfast today. Gtube only for medications. Current Diet Order/ Nutrition Support pureed, nectar thick Pertinent Medications vit C, Iron, protonix, seroquel, kcl, senna Pertinent Labs 04/15 Glu 110, abl 3.7, triglycerides Nutritional Hx/Data Height 1.75 m Height (Calculated Centimeters) 175.3 Current Weight (lbs) 111.13 kg Weight (Calculated Kilograms) 111.1 Weight (Calculated Grams) 594060.1 [place] Body Weight 160 Body Mass Index (BMI) 36.1 Weight Status Overweight GI Symptoms GI Symptoms None Last BM none Difficult in: None Skin Integrity/Comment: dryness Current %PO Good (75-100%) Estimated Nutritional Goals BEE in Kcals: Adj wt of IBW Calories/Kcals/Kg 25-30 Kcals Calculated 1162-6669 Protein: Adj wt of IBW Protein g/k Protein Calculated 82 Fluid: ml 2049-246ml (1ml/kcal) Nutritional Problem No current Nutrition Prob Problem N/A Malnutrition Alert Is there a minimum of two criteria No selected? Query Text:Check all the applicable criteria. A minimum of two criteria are recommended for diagnosis of either severe or non-severe malnutrition. Malnutrition Related to Morbid Obesity Malnutrition related to morbid obesity No Intervention/Recommendation Comments 1. Continue with pureed nectar thick diet as ordered. 2. Monitor PO intake, wt, labs and skin integrity 3. F/U as low risk in 7 days, 04/23, PO check 04/19 Expected Outcomes/Goals Expected Outcomes/Goals 1. PO intake to meet at least 75% of nutritional needs. 2. Wt stability, skin to remain intact, labs to approach WNL.
--- NOTE | 2018-04-20 19:06 | Progress Notes ---
DATE: 04/18/2018 SUBJECTIVE: Chart reviewed and the patient interviewed. Also discussed the patient's condition with the staff and reviewed records and labs. The patient is still slightly confused and he is only oriented to himself. He answered his name. Also able to follow simple commands otherwise and not able to answer questions coherently. The patient has no major behavior problems. He is still agitated, but his agitation seems to be less. Also, no side effects of medications. ASSESSMENT: The patient is still agitated but less. TREATMENT PLAN: Continue monitoring his behavior. Also, continue Seroquel in a dose of 50 mg 3 times a day and continue to follow up. JOB# [id number]
--- NOTE | 2018-04-20 19:43 | Progress Notes ---
DATE: SUBJECTIVE: Chart reviewed and the patient interviewed. Also discussed the patient's condition with the staff and reviewed the records and labs. The patient is still withdrawn and is still in a depressed mood. The patient also is guarded. He also denies any suicidal or homicidal ideations, but he is still confused and he is still only able to follow simple commands. Easier to redirect him. ASSESSMENT: The patient is still confused and depressed, but less agitated. TREATMENT PLAN: Continue Seroquel 50 mg 3 times a day. Also, continue monitoring his behavior and his condition closely. JOB# [id number]
--- NOTE | 2018-04-20 21:57 | Progress Notes ---
DATE: 04/20/2018 SUBJECTIVE: The patient was seen in the dining area. The patient appears to be guarded and irritable. Episodes of agitation, otherwise the patient currently is in no acute distress. OBJECTIVE: VITAL SIGNS: Temperature 98.1, heart rate 91, blood pressure ____/81, respirations 20, and 97% on room air. HEENT: Head is normocephalic. Eyes: Bilateral conjunctivae are clear. Bilateral pupils are equally round and reactive. NECK: Supple. No JVD. CARDIOVASCULAR: S1 and S2, without murmur. PULMONARY: Clear to auscultation. GASTROINTESTINAL: Soft and nontender without guarding. Positive bowel sounds. MUSCULOSKELETAL: No clubbing. No cyanosis noted. ASSESSMENT: 1. Schizoaffective disorder. 2. Diabetes. 3. Seizure disorder. 4. History of cerebrovascular accident. PLAN: We will keep the patient inpatient Psychiatric unit and follow up with a psychiatrist to monitor the patient's condition and behavior. Treatment plans were discussed with the patient's nurse. Treatment plans were discussed with Dr. Sanders. JOB# [id number]
--- NOTE | 2018-04-21 03:06 | Progress Notes ---
DATE: SUBJECTIVE: Chart reviewed and the patient interviewed. Also discussed the patient's condition with the staff and reviewed records and labs. The patient is still intrusive and disruptive to others. He also still have difficulty following up directions and he gets agitated and irritable when he is asked to follow directions. Also, still gets aggressive at times and yesterday, the patient had to be given emergency injection of Haldol, Ativan and Benadryl to calm him down. Otherwise, the patient is compliant with taking his medications with no side effect of medications. ASSESSMENT: The patient is still agitated and psychotic. TREATMENT PLAN: Continue to monitor his behavior and his condition closely. Also, we will increase Seroquel to 75 mg 3 times a day and continue Topamax 150 mg every day and continue to follow up. [facility]# [id number]
[2018-04-21] MEDS: Pantoprazole 40 mg/Packet GT SCH (06:32)
[2018-04-21] MEDS: Potassium Chloride Elixir 20 mEq /15 mL UDC GT SCH (08:16)
[2018-04-21] MEDS: Ferrous Sulfate 300 MG/5 ML UDC PO SCH (08:16)
[2018-04-21] MEDS: Aspirin 81mg Chewable Tab GT SCH (08:17)
[2018-04-21] MEDS: NYSTATIN 100000 UNITS/GM POWD TP SCH ×3 (08:18→16:24)
[2018-04-22] MEDS: Pantoprazole 40 mg/Packet GT SCH (06:42)
[2018-04-22] MEDS: Ferrous Sulfate 300 MG/5 ML UDC PO SCH (09:18)
[2018-04-22] MEDS: Potassium Chloride Elixir 20 mEq /15 mL UDC GT SCH (09:18)
[2018-04-22] MEDS: Aspirin 81mg Chewable Tab GT SCH (09:20)
[2018-04-22] MEDS: NYSTATIN 100000 UNITS/GM POWD TP SCH ×2 (10:18→16:42)
--- NOTE | 2018-04-22 15:56 | General Progress Note ---
Subjective - Review of Systems Events since last encounter: patient still agitated still confused irritable Objective - Results Result Diagrams: 04/19/18 11:00 04/15/18 18:50 Recent Labs: Laboratory Last Values WBC 9.5 Th/cmm (4.8-10.8) 04/19/18 11:00 RBC 4.50 Mil/cmm (4.30-5.70) 04/19/18 11:00 Hgb 13.0 gm/dL (12-16) 04/19/18 11:00 Hct 38.9 % (41.0-60) L 04/19/18 11:00 MCV 86.5 fl (80-99) 04/19/18 11:00 MCH 28.9 pg (26.0-30.0) 04/19/18 11:00 MCHC Differential 33.4 pg (28.0-36.0) 04/19/18 11:00 RDW 15.5 % (11.5-20.0) 04/19/18 11:00 Plt Count 325 Th/cmm (150-400) 04/19/18 11:00 MPV 6.9 fl 04/19/18 11:00 Neutrophils % 71.8 % (40.0-80.0) 04/19/18 11:00 Lymphocytes % 18.1 % (20.0-50.0) L 04/19/18 11:00 Monocytes % 7.0 % (2.0-10.0) 04/19/18 11:00 Eosinophils % 2.7 % (0.0-5.0) 04/19/18 11:00 Basophils % 0.4 % (0.0-2.0) 04/19/18 11:00 Sodium 137 mEq/L (136-145) 04/15/18 18:50 Potassium 4.1 mEq/L (3.5-5.1) 04/15/18 18:50 Chloride 104 mEq/L (98-107) 04/15/18 18:50 Carbon Dioxide 25.2 mEq/L (21.0-31.0) 04/15/18 18:50 Anion Gap 11.9 (7.0-16.0) 04/15/18 18:50 BUN 15 mg/dL (7-25) 04/15/18 18:50 Creatinine 0.7 mg/dL (0.7-1.3) 04/15/18 18:50 Est GFR ( Amer) > 60.0 ml/min (>90) 04/15/18 18:50 Est GFR (Non-Af Amer) > 60.0 ml/min 04/15/18 18:50 BUN/Creatinine Ratio 21.4 04/15/18 18:50 Glucose 110 mg/dL (70-105) H 04/15/18 18:50 POC Glucose 103 MG/DL (70 - 105) 04/22/18 06:08 Hemoglobin A1c % 6.3 % (4.0-6.0) H 04/15/18 18:50 Calcium 9.0 mg/dL (8.6-10.3) 04/15/18 18:50 Total Bilirubin 0.2 mg/dL (0.3-1.0) L 04/15/18 18:50 AST 11 U/L (13-39) L 04/15/18 18:50 ALT 12 U/L (7-52) 04/15/18 18:50 Alkaline Phosphatase 97 U/L (34-104) 04/15/18 18:50 Total Protein 6.4 gm/dL (6.0-8.3) 04/15/18 18:50 Albumin 3.7 gm/dL (4.2-5.5) L 04/15/18 18:50 Globulin 2.7 gm/dL 04/15/18 18:50 Albumin/Globulin Ratio 1.4 (1.0-1.8) 04/15/18 18:50 Triglycerides 197 mg/dL (<150) H 04/15/18 18:50 Cholesterol 175 mg/dL (<200) 04/15/18 18:50 LDL Cholesterol Direct 120 mg/dL (75-193) 04/15/18 18:50 HDL Cholesterol 40 mg/dL (23-92) 04/15/18 18:50 Vitamin B12 486 pg/mL (232-1245) 04/18/18 08:20 TSH 0.96 uIU/ml (0.34-5.60) 04/15/18 18:50 Urine Source CLEAN C 04/15/18 19:00 Urine Color YELLOW 04/15/18 19:00 Urine Clarity CLEAR (CLEAR) 04/15/18 19:00 Urine pH 6.5 (4.6 - 8.0) 04/15/18 19:00 Ur Specific [place] 1.015 (1.005-1.030) 04/15/18 19:00 Urine Protein NEGATIVE mg/dL (NEGATIVE) 04/15/18 19:00 Urine Glucose (UA) NEGATIVE mg/dL (NEGATIVE) 04/15/18 19:00 Urine Ketones NEGATIVE mg/dL (NEGATIVE) 04/15/18 19:00 Urine Blood NEGATIVE (NEGATIVE) 04/15/18 19:00 Urine Nitrate NEGATIVE (NEGATIVE) 04/15/18 19:00 Urine Bilirubin NEGATIVE (NEGATIVE) 04/15/18 19:00 Urine Urobilinogen 0.2 E.U./dL (0.2 - 1.0) 04/15/18 19:00 Ur Leukocyte Esterase NEGATIVE (NEGATIVE) 04/15/18 19:00 Urine RBC NONE SEEN /hpf (0-5) 04/15/18 19:00 Urine WBC 0-2 /hpf (0-5) 04/15/18 19:00 Ur Epithelial Cells OCCASIONAL /lpf (FEW) 04/15/18 19:00 Urine Bacteria OCCASIONAL /hpf (NONE SEEN) 04/15/18 19:00 Salicylates < 25.0 mg/L (30.0-100.0) L 04/15/18 18:50 Urine Opiates Screen NEGATIVE (NEGATIVE) 04/15/18 19:00 Urine Methadone Screen NEGATIVE (NEGATIVE) 04/15/18 19:00 Acetaminophen < 10.0 ug/mL (10.0-30.0) L 04/15/18 18:50 Ur Barbiturates Screen NEGATIVE (NEGATIVE) 04/15/18 19:00 Ur Tricyclics Screen NEGATIVE (NEGATIVE) 04/15/18 19:00 Ur Phencyclidine Scrn NEGATIVE (NEGATIVE) 04/15/18 19:00 Amphetamines Screen NEGATIVE (NEGATIVE) 04/15/18 19:00 U Methamphetamines Scrn NEGATIVE (NEGATIVE) 04/15/18 19:00 U Benzodiazepines Scrn POSITIVE (NEGATIVE) H 04/15/18 19:00 U Cocaine Metab Screen NEGATIVE (NEGATIVE) 04/15/18 19:00 U Cannabinoids Screen NEGATIVE (NEGATIVE) 04/15/18 19:00 Ethyl Alcohol < 10 mg/dL (0-10) 07/30/18 18:50 RPR NONREACTIVE (NONREACTIVE) 04/15/18 18:50 HIV 1&2 Antibody Screen NEGATIVE (NEG) 04/18/18 08:20 - Physical Exam Vitals and I&O: Vital Signs Temp 97.4 F 04/22/18 15:53 Pulse 102 04/22/18 15:53 Resp 19 04/22/18 15:53 BP 112/55 04/22/18 15:53 Pulse Ox 97 04/22/18 15:53 Intake & Output 04/21/18 04/22/18 04/22/18 18:59 06:59 18:59 Intake Total 900 360 Balance 900 360 Intake: Oral 900 360 Other: # Voids 3 2 # Bowel Movements 1 0 Active Medications: Current Medications Acetaminophen (Tylenol 650mg/20.3ml Suspension) 650 mg GT Q6HR PRN PRN Reason: MILD PAIN OR TEMP >100.5 Stop: 06/14/18 22:28 Acetylcysteine (Mucomyst 20%) 3 ml GT BID [facility] Stop: 06/15/18 08:59 Last Admin: 04/22/18 10:13 Dose: Not Given Albuterol Sulfate (Albuterol 2.5mg/3ml Neb Ud) 2.5 mg HHN BIDRT PRN PRN Reason: Wheezing Stop: 06/16/18 17:55 Last Admin: 04/19/18 07:00 Dose: 2.5 mg Ascorbic Acid (Vitamin C) 500 mg GT DAILY [facility] Stop: 06/15/18 08:59 Last Admin: 04/22/18 09:22 Dose: 500 mg Aspirin (Aspirin Chewable) 81 mg GT DAILY [facility] Stop: 06/15/18 08:59 Last Admin: 04/22/18 09:20 Dose: 81 mg Bisacodyl (Dulcolax 10 Mg Supp) 10 mg RC DAILY PRN PRN Reason: IF MOM INEFFECTIVE Stop: 06/14/18 22:28 Ferrous Sulfate (Iron) 300 mg PO DAILY [facility] Stop: 06/15/18 08:59 Last Admin: 04/22/18 09:18 Dose: 300 mg Lorazepam (Ativan) 1 mg GT Q4HR PRN; Protocol PRN Reason: Anxiety Stop: 05/15/18 21:44 Last Admin: 04/22/18 11:18 Dose: 1 mg Magnesium Hydroxide (Milk Of Magnesia) 30 ml GT HS PRN PRN Reason: Constipation Stop: 06/14/18 22:28 Midodrine (Proamatine) 5 mg GT TID [facility] Stop: 06/15/18 08:59 Last Admin: 04/22/18 14:12 Dose: Not Given Mupirocin (Bactroban Oint) 1 appl NS BID [facility] Stop: 04/22/18 17:01 Last Admin: 04/22/18 10:15 Dose: 1 appl Nystatin (Nystop) 0 units TP BID [facility] Stop: 06/16/18 16:59 Last Admin: 04/22/18 10:18 Dose: 100,000 units Ondansetron HCl (Zofran Odt) 4 mg PO Q6H PRN PRN Reason: Nausea / Vomiting Stop: 06/16/18 17:52 Pantoprazole Sodium (Protonix) 40 mg GT QDAC [facility] Stop: 06/15/18 07:29 Last Admin: 04/22/18 06:42 Dose: 40 mg Pioglitazone HCl (Actos) 15 mg GT DAILY [facility] Stop: 06/15/18 08:59 Last Admin: 04/22/18 09:20 Dose: 15 mg Potassium Chloride (Potassium Chloride Elixir) 20 meq GT DAILY [facility] Stop: 06/15/18 08:59 Last Admin: 04/22/18 09:18 Dose: 20 meq Quetiapine Fumarate (Seroquel) 75 mg PO TID [facility]; Protocol Stop: 06/19/18 08:59 Last Admin: 04/22/18 13:34 Dose: 75 mg Senna (Senna) 8.6 mg GT DAILY [facility] Stop: 06/15/18 08:59 Last Admin: 04/22/18 09:36 Dose: Not Given Sodium Phosphate (Fleet Enema) 135 ml RC Q48H PRN PRN Reason: IF DULCOLAX INEFFECTIVE Stop: 06/14/18 22:28 Topiramate (Topamax) 150 mg GT DAILY [facility] Stop: 06/19/18 08:59 Last Admin: 04/22/18 09:19 Dose: 150 mg Zolpidem Tartrate (Ambien) 5 mg GT HS PRN PRN Reason: Insomnia Stop: 06/14/18 21:44 Last Admin: 04/21/18 20:34 Dose: 5 mg Assessment/Plan - Problem List Patient Problems: All Active Problems [employer] STAFF (Acute) Nutritional Asmnt/Malnutr-PDOC - Dietary Evaluation Malnutrition Findings (Please click <Entered> for more info): Nutritional Asmnt/Malnutrition Start: 04/16/18 14: 24 Text: Status: Complete Freq: Protocol: Document 04/16/18 14:24 [email or web address] (Rec: 04/16/18 14:42 [email or web address] [email or web address]) Nutritional Asmnt/Malnutrition Patient General Information Nutritional Screening High Risk Diagnosis psychosis Pertinent Medical Hx/Surgical Hx DM, CVA/TIA, seizures, dysphagi, s/p PNA, PEG/Gtube, left frontal craniotomy Subjective Information Pt admited with Gtube noted. Pt seen sleeping soundly at time of visit. Spoke with RN, RN stated bolus TF was discontinued since pt is able to tolerate oral diet and ate very well, 100% of breakfast today. Gtube only for medications. Current Diet Order/ Nutrition Support pureed, nectar thick Pertinent Medications vit C, Iron, protonix, seroquel, kcl, senna Pertinent Labs 04/15 Glu 110, abl 3.7, triglycerides Nutritional Hx/Data Height 1.75 m Height (Calculated Centimeters) 175.3 Current Weight (lbs) 111.13 kg Weight (Calculated Kilograms) 111.1 Weight (Calculated Grams) 486113.1 [place] Body Weight 160 Body Mass Index (BMI) 36.1 Weight Status Overweight GI Symptoms GI Symptoms None Last BM none Difficult in: None Skin Integrity/Comment: dryness Current %PO Good (75-100%) Estimated Nutritional Goals BEE in Kcals: Adj wt of IBW Calories/Kcals/Kg 25-30 Kcals Calculated 7472-7056 Protein: Adj wt of IBW Protein g/k Protein Calculated 82 Fluid: ml 2049-246ml (1ml/kcal) Nutritional Problem No current Nutrition Prob Problem N/A Malnutrition Alert Is there a minimum of two criteria No selected? Query Text:Check all the applicable criteria. A minimum of two criteria are recommended for diagnosis of either severe or non-severe malnutrition. Malnutrition Related to Morbid Obesity Malnutrition related to morbid obesity No Intervention/Recommendation Comments 1. Continue with pureed nectar thick diet as ordered. 2. Monitor PO intake, wt, labs and skin integrity 3. F/U as low risk in 7 days, 04/23, PO check 8/3 Expected Outcomes/Goals Expected Outcomes/Goals 1. PO intake to meet at least 75% of nutritional needs. 2. Wt stability, skin to remain intact, labs to approach WNL.
[2018-04-23] MEDS: Pantoprazole 40 mg/Packet GT SCH (06:45)
[2018-04-23] MEDS: NYSTATIN 100000 UNITS/GM POWD TP SCH ×2 (10:05→16:08)
[2018-04-23] MEDS: Aspirin 81mg Chewable Tab GT SCH (10:06)
[2018-04-23] MEDS: Potassium Chloride Elixir 20 mEq /15 mL UDC GT SCH (10:07)
[2018-04-23] MEDS: Ferrous Sulfate 300 MG/5 ML UDC PO SCH (10:07)
[2018-04-24] MEDS: Pantoprazole 40 mg/Packet GT SCH (07:15)
--- NOTE | 2018-04-24 09:00 | General Progress Note ---
Subjective - Review of Systems Events since last encounter: patient still irritable confused Objective - Results Result Diagrams: 04/19/18 11:00 04/15/18 18:50 Recent Labs: Laboratory Last Values WBC 9.5 Th/cmm (4.8-10.8) 04/19/18 11:00 RBC 4.50 Mil/cmm (4.30-5.70) 04/19/18 11:00 Hgb 13.0 gm/dL (12-16) 04/19/18 11:00 Hct 38.9 % (41.0-60) L 04/19/18 11:00 MCV 86.5 fl (80-99) 04/19/18 11:00 MCH 28.9 pg (26.0-30.0) 04/19/18 11:00 MCHC Differential 33.4 pg (28.0-36.0) 04/19/18 11:00 RDW 15.5 % (11.5-20.0) 04/19/18 11:00 Plt Count 325 Th/cmm (150-400) 04/19/18 11:00 MPV 6.9 fl 04/19/18 11:00 Neutrophils % 71.8 % (40.0-80.0) 04/19/18 11:00 Lymphocytes % 18.1 % (20.0-50.0) L 04/19/18 11:00 Monocytes % 7.0 % (2.0-10.0) 04/19/18 11:00 Eosinophils % 2.7 % (0.0-5.0) 04/19/18 11:00 Basophils % 0.4 % (0.0-2.0) 04/19/18 11:00 Sodium 137 mEq/L (136-145) 04/15/18 18:50 Potassium 4.1 mEq/L (3.5-5.1) 04/15/18 18:50 Chloride 104 mEq/L (98-107) 04/15/18 18:50 Carbon Dioxide 25.2 mEq/L (21.0-31.0) 04/15/18 18:50 Anion Gap 11.9 (7.0-16.0) 04/15/18 18:50 BUN 15 mg/dL (7-25) 04/15/18 18:50 Creatinine 0.7 mg/dL (0.7-1.3) 04/15/18 18:50 Est GFR ( Amer) > 60.0 ml/min (>90) 04/15/18 18:50 Est GFR (Non-Af Amer) > 60.0 ml/min 04/15/18 18:50 BUN/Creatinine Ratio 21.4 04/15/18 18:50 Glucose 110 mg/dL (70-105) H 04/15/18 18:50 POC Glucose 103 MG/DL (70 - 105) 04/22/18 06:08 Hemoglobin A1c % 6.3 % (4.0-6.0) H 04/15/18 18:50 Calcium 9.0 mg/dL (8.6-10.3) 04/15/18 18:50 Total Bilirubin 0.2 mg/dL (0.3-1.0) L 04/15/18 18:50 AST 11 U/L (13-39) L 04/15/18 18:50 ALT 12 U/L (7-52) 04/15/18 18:50 Alkaline Phosphatase 97 U/L (34-104) 04/15/18 18:50 Total Protein 6.4 gm/dL (6.0-8.3) 04/15/18 18:50 Albumin 3.7 gm/dL (4.2-5.5) L 04/15/18 18:50 Globulin 2.7 gm/dL 04/15/18 18:50 Albumin/Globulin Ratio 1.4 (1.0-1.8) 04/15/18 18:50 Triglycerides 197 mg/dL (<150) H 04/15/18 18:50 Cholesterol 175 mg/dL (<200) 04/15/18 18:50 LDL Cholesterol Direct 120 mg/dL (75-193) 04/15/18 18:50 HDL Cholesterol 40 mg/dL (23-92) 04/15/18 18:50 Vitamin B12 486 pg/mL (232-1245) 04/18/18 08:20 TSH 0.96 uIU/ml (0.34-5.60) 04/15/18 18:50 Urine Source CLEAN C 04/15/18 19:00 Urine Color YELLOW 04/15/18 19:00 Urine Clarity CLEAR (CLEAR) 04/15/18 19:00 Urine pH 6.5 (4.6 - 8.0) 04/15/18 19:00 Ur Specific [place] 1.015 (1.005-1.030) 04/15/18 19:00 Urine Protein NEGATIVE mg/dL (NEGATIVE) 04/15/18 19:00 Urine Glucose (UA) NEGATIVE mg/dL (NEGATIVE) 04/15/18 19:00 Urine Ketones NEGATIVE mg/dL (NEGATIVE) 04/15/18 19:00 Urine Blood NEGATIVE (NEGATIVE) 04/15/18 19:00 Urine Nitrate NEGATIVE (NEGATIVE) 04/15/18 19:00 Urine Bilirubin NEGATIVE (NEGATIVE) 04/15/18 19:00 Urine Urobilinogen 0.2 E.U./dL (0.2 - 1.0) 04/15/18 19:00 Ur Leukocyte Esterase NEGATIVE (NEGATIVE) 04/15/18 19:00 Urine RBC NONE SEEN /hpf (0-5) 04/15/18 19:00 Urine WBC 0-2 /hpf (0-5) 04/15/18 19:00 Ur Epithelial Cells OCCASIONAL /lpf (FEW) 04/15/18 19:00 Urine Bacteria OCCASIONAL /hpf (NONE SEEN) 04/15/18 19:00 Salicylates < 25.0 mg/L (30.0-100.0) L 04/15/18 18:50 Urine Opiates Screen NEGATIVE (NEGATIVE) 04/15/18 19:00 Urine Methadone Screen NEGATIVE (NEGATIVE) 04/15/18 19:00 Acetaminophen < 10.0 ug/mL (10.0-30.0) L 04/15/18 18:50 Ur Barbiturates Screen NEGATIVE (NEGATIVE) 04/15/18 19:00 Ur Tricyclics Screen NEGATIVE (NEGATIVE) 04/15/18 19:00 Ur Phencyclidine Scrn NEGATIVE (NEGATIVE) 04/15/18 19:00 Amphetamines Screen NEGATIVE (NEGATIVE) 04/15/18 19:00 U Methamphetamines Scrn NEGATIVE (NEGATIVE) 04/15/18 19:00 U Benzodiazepines Scrn POSITIVE (NEGATIVE) H 04/15/18 19:00 U Cocaine Metab Screen NEGATIVE (NEGATIVE) 04/15/18 19:00 U Cannabinoids Screen NEGATIVE (NEGATIVE) 04/15/18 19:00 Ethyl Alcohol < 10 mg/dL (0-10) 04/15/18 18:50 RPR NONREACTIVE (NONREACTIVE) 04/15/18 18:50 HIV 1&2 Antibody Screen NEGATIVE (NEG) 04/18/18 08:20 - Physical Exam Vitals and I&O: Vital Signs Temp 98 F 04/24/18 06:35 Pulse 74 04/24/18 06:35 Resp 18 04/24/18 06:35 BP 118/74 04/24/18 06:35 Pulse Ox 97 04/24/18 06:35 Intake & Output 04/23/18 04/24/18 04/24/18 18:59 06:59 18:59 Intake Total 360 Balance 360 Weight (lbs) 111.13 kg Intake: Oral 360 Other: # Voids 4 2 # Bowel Movements 2 0 Weight Source Bedscale Active Medications: Current Medications Acetaminophen (Tylenol 650mg/20.3ml Suspension) 650 mg GT Q6HR PRN PRN Reason: MILD PAIN OR TEMP >100.5 Stop: 06/14/18 22:28 Acetylcysteine (Mucomyst 20%) 3 ml GT BID [facility] Stop: 06/15/18 08:59 Last Admin: 04/23/18 19:26 Dose: Not Given Albuterol Sulfate (Albuterol 2.5mg/3ml Neb Ud) 2.5 mg HHN BIDRT PRN PRN Reason: Wheezing Stop: 06/16/18 17:55 Last Admin: 04/19/18 07:00 Dose: 2.5 mg Ascorbic Acid (Vitamin C) 500 mg GT DAILY [facility] Stop: 06/15/18 08:59 Last Admin: 04/23/18 10:06 Dose: 500 mg Aspirin (Aspirin Chewable) 81 mg GT DAILY [facility] Stop: 06/15/18 08:59 Last Admin: 04/23/18 10:06 Dose: 81 mg Bisacodyl (Dulcolax 10 Mg Supp) 10 mg RC DAILY PRN PRN Reason: IF MOM INEFFECTIVE Stop: 06/14/18 22:28 Ferrous Sulfate (Iron) 300 mg PO DAILY [facility] Stop: 06/15/18 08:59 Last Admin: 04/23/18 10:07 Dose: 300 mg Lorazepam (Ativan) 1 mg GT Q4HR PRN; Protocol PRN Reason: Anxiety Stop: 05/15/18 21:44 Last Admin: 04/23/18 21:14 Dose: 1 mg Magnesium Hydroxide (Milk Of Magnesia) 30 ml GT HS PRN PRN Reason: Constipation Stop: 06/14/18 22:28 Last Admin: 04/23/18 19:50 Dose: 30 ml Midodrine (Proamatine) 5 mg GT TID [facility] Stop: 06/15/18 08:59 Last Admin: 04/23/18 21:14 Dose: 5 mg Nystatin (Nystop) 0 units TP BID [facility] Stop: 06/16/18 16:59 Last Admin: 04/23/18 16:08 Dose: 100,000 units Ondansetron HCl (Zofran Odt) 4 mg PO Q6H PRN PRN Reason: Nausea / Vomiting Stop: 06/16/18 17:52 Pantoprazole Sodium (Protonix) 40 mg GT QDAC [facility] Stop: 06/15/18 07:29 Last Admin: 04/24/18 07:15 Dose: Not Given Pioglitazone HCl (Actos) 15 mg GT DAILY [facility] Stop: 06/15/18 08:59 Last Admin: 04/23/18 10:07 Dose: 15 mg Potassium Chloride (Potassium Chloride Elixir) 20 meq GT DAILY [facility] Stop: 06/15/18 08:59 Last Admin: 04/23/18 10:07 Dose: 20 meq Quetiapine Fumarate (Seroquel) 75 mg PO TID [facility]; Protocol Stop: 06/19/18 08:59 Last Admin: 04/23/18 21:14 Dose: 75 mg Senna (Senna) 8.6 mg GT DAILY [facility] Stop: 06/15/18 08:59 Last Admin: 04/23/18 10:07 Dose: Not Given Sodium Phosphate (Fleet Enema) 135 ml RC Q48H PRN PRN Reason: IF DULCOLAX INEFFECTIVE Stop: 06/14/18 22:28 Topiramate (Topamax) 150 mg GT DAILY [facility] Stop: 06/19/18 08:59 Last Admin: 04/23/18 10:06 Dose: 150 mg Zolpidem Tartrate (Ambien) 5 mg GT HS PRN PRN Reason: Insomnia Stop: 06/14/18 21:44 Last Admin: 04/23/18 21:14 Dose: 5 mg Assessment/Plan - Problem List Patient Problems: All Active Problems [employer] STAFF (Acute) Nutritional Asmnt/Malnutr-PDOC - Dietary Evaluation Malnutrition Findings (Please click <Entered> for more info): Nutritional Asmnt/Malnutrition Start: 04/16/18 14: 24 Text: Status: Complete Freq: Protocol: Document 04/16/18 14:24 ANGELLA (Rec: 04/16/18 14:42 REED [email or web address]) Nutritional Asmnt/Malnutrition Patient General Information Nutritional Screening High Risk Diagnosis psychosis Pertinent Medical Hx/Surgical Hx DM, CVA/TIA, seizures, dysphagi, s/p PNA, PEG/Gtube, left frontal craniotomy Subjective Information Pt admited with Gtube noted. Pt seen sleeping soundly at time of visit. Spoke with RN, RN stated bolus TF was discontinued since pt is able to tolerate oral diet and ate very well, 100% of breakfast today. Gtube only for medications. Current Diet Order/ Nutrition Support pureed, nectar thick Pertinent Medications vit C, Iron, protonix, seroquel, kcl, senna Pertinent Labs 04/15 Glu 110, abl 3.7, triglycerides Nutritional Hx/Data Height 1.75 m Height (Calculated Centimeters) 175.3 Current Weight (lbs) 111.13 kg Weight (Calculated Kilograms) 111.1 Weight (Calculated Grams) 421756.1 [place] Body Weight 160 Body Mass Index (BMI) 36.1 Weight Status Overweight GI Symptoms GI Symptoms None Last BM none Difficult in: None Skin Integrity/Comment: dryness Current %PO Good (75-100%) Estimated Nutritional Goals BEE in Kcals: Adj wt of IBW Calories/Kcals/Kg 25-30 Kcals Calculated [id number] Protein: Adj wt of IBW Protein g/k Protein Calculated 82 Fluid: ml 2049-2460ml (1ml/kcal) Nutritional Problem No current Nutrition Prob Problem N/A Malnutrition Alert Is there a minimum of two criteria No selected? Query Text:Check all the applicable criteria. A minimum of two criteria are recommended for diagnosis of either severe or non-severe malnutrition. Malnutrition Related to Morbid Obesity Malnutrition related to morbid obesity No Intervention/Recommendation Comments 1. Continue with pureed nectar thick diet as ordered. 2. Monitor PO intake, wt, labs and skin integrity 3. F/U as low risk in 7 days, 04/23, PO check 04/19 Expected Outcomes/Goals Expected Outcomes/Goals 1. PO intake to meet at least 75% of nutritional needs. 2. Wt stability, skin to remain intact, labs to approach WNL.
[2018-04-24] MEDS: NYSTATIN 100000 UNITS/GM POWD TP SCH ×2 (09:26→17:28)
[2018-04-24] MEDS: Potassium Chloride Elixir 20 mEq /15 mL UDC GT SCH (09:27)
[2018-04-24] MEDS: Aspirin 81mg Chewable Tab GT SCH (09:27)
[2018-04-24] MEDS: Ferrous Sulfate 300 MG/5 ML UDC PO SCH (09:27)
[2018-04-25] MEDS: Pantoprazole 40 mg/Packet GT SCH (06:36)
[2018-04-25] MEDS: Aspirin 81mg Chewable Tab GT SCH (09:08)
[2018-04-25] MEDS: Potassium Chloride Elixir 20 mEq /15 mL UDC GT SCH (09:11)
[2018-04-25] MEDS: Ferrous Sulfate 300 MG/5 ML UDC PO SCH (09:12)
[2018-04-25] MEDS ORDERED: Haloperidol Lactate 5 mg/mL 1mL Vial ONE (10:06)
[2018-04-25] MEDS ORDERED: Haloperidol Lactate 5 mg/mL 1mL Vial IM ONE (10:15)
--- NOTE | 2018-04-25 15:38 | General Progress Note ---
Subjective - Review of Systems Subjective: Patient remains confused, and agitated at times Objective - Results Result Diagrams: 04/19/18 11:00 04/15/18 18:50 Recent Labs: Laboratory Last Values WBC 9.5 Th/cmm (4.8-10.8) 04/19/18 11:00 RBC 4.50 Mil/cmm (4.30-5.70) 04/19/18 11:00 Hgb 13.0 gm/dL (12-16) 04/19/18 11:00 Hct 38.9 % (41.0-60) L 04/19/18 11:00 MCV 86.5 fl (80-99) 04/19/18 11:00 MCH 28.9 pg (26.0-30.0) 04/19/18 11:00 MCHC Differential 33.4 pg (28.0-36.0) 04/19/18 11:00 RDW 15.5 % (11.5-20.0) 04/19/18 11:00 Plt Count 325 Th/cmm (150-400) 04/19/18 11:00 MPV 6.9 fl 04/19/18 11:00 Neutrophils % 71.8 % (40.0-80.0) 04/19/18 11:00 Lymphocytes % 18.1 % (20.0-50.0) L 04/19/18 11:00 Monocytes % 7.0 % (2.0-10.0) 04/19/18 11:00 Eosinophils % 2.7 % (0.0-5.0) 04/19/18 11:00 Basophils % 0.4 % (0.0-2.0) 04/19/18 11:00 Sodium 137 mEq/L (136-145) 04/15/18 18:50 Potassium 4.1 mEq/L (3.5-5.1) 04/15/18 18:50 Chloride 104 mEq/L (98-107) 04/15/18 18:50 Carbon Dioxide 25.2 mEq/L (21.0-31.0) 04/15/18 18:50 Anion Gap 11.9 (7.0-16.0) 04/15/18 18:50 BUN 15 mg/dL (7-25) 04/15/18 18:50 Creatinine 0.7 mg/dL (0.7-1.3) 04/15/18 18:50 Est GFR ( Amer) > 60.0 ml/min (>90) 04/15/18 18:50 Est GFR (Non-Af Amer) > 60.0 ml/min 04/15/18 18:50 BUN/Creatinine Ratio 21.4 04/15/18 18:50 Glucose 110 mg/dL (70-105) H 04/15/18 18:50 POC Glucose 103 MG/DL (70 - 105) 04/22/18 06:08 Hemoglobin A1c % 6.3 % (4.0-6.0) H 04/15/18 18:50 Calcium 9.0 mg/dL (8.6-10.3) 04/15/18 18:50 Total Bilirubin 0.2 mg/dL (0.3-1.0) L 04/15/18 18:50 AST 11 U/L (13-39) L 04/15/18 18:50 ALT 12 U/L (7-52) 04/15/18 18:50 Alkaline Phosphatase 97 U/L (34-104) 04/15/18 18:50 Total Protein 6.4 gm/dL (6.0-8.3) 04/15/18 18:50 Albumin 3.7 gm/dL (4.2-5.5) L 04/15/18 18:50 Globulin 2.7 gm/dL 04/15/18 18:50 Albumin/Globulin Ratio 1.4 (1.0-1.8) 04/15/18 18:50 Triglycerides 197 mg/dL (<150) H 04/15/18 18:50 Cholesterol 175 mg/dL (<200) 04/15/18 18:50 LDL Cholesterol Direct 120 mg/dL (75-193) 04/15/18 18:50 HDL Cholesterol 40 mg/dL (23-92) 04/15/18 18:50 Vitamin B12 486 pg/mL (232-1245) 04/18/18 08:20 TSH 0.96 uIU/ml (0.34-5.60) 04/15/18 18:50 Urine Source CLEAN C 04/15/18 19:00 Urine Color YELLOW 04/15/18 19:00 Urine Clarity CLEAR (CLEAR) 04/15/18 19:00 Urine pH 6.5 (4.6 - 8.0) 04/15/18 19:00 Ur Specific [place] 1.015 (1.005-1.030) 04/15/18 19:00 Urine Protein NEGATIVE mg/dL (NEGATIVE) 04/15/18 19:00 Urine Glucose (UA) NEGATIVE mg/dL (NEGATIVE) 04/15/18 19:00 Urine Ketones NEGATIVE mg/dL (NEGATIVE) 04/15/18 19:00 Urine Blood NEGATIVE (NEGATIVE) 04/15/18 19:00 Urine Nitrate NEGATIVE (NEGATIVE) 04/15/18 19:00 Urine Bilirubin NEGATIVE (NEGATIVE) 04/15/18 19:00 Urine Urobilinogen 0.2 E.U./dL (0.2 - 1.0) 04/15/18 19:00 Ur Leukocyte Esterase NEGATIVE (NEGATIVE) 04/15/18 19:00 Urine RBC NONE SEEN /hpf (0-5) 04/15/18 19:00 Urine WBC 0-2 /hpf (0-5) 04/15/18 19:00 Ur Epithelial Cells OCCASIONAL /lpf (FEW) 04/15/18 19:00 Urine Bacteria OCCASIONAL /hpf (NONE SEEN) 04/15/18 19:00 Salicylates < 25.0 mg/L (30.0-100.0) L 04/15/18 18:50 Urine Opiates Screen NEGATIVE (NEGATIVE) 04/15/18 19:00 Urine Methadone Screen NEGATIVE (NEGATIVE) 04/15/18 19:00 Acetaminophen < 10.0 ug/mL (10.0-30.0) L 04/15/18 18:50 Ur Barbiturates Screen NEGATIVE (NEGATIVE) 04/15/18 19:00 Ur Tricyclics Screen NEGATIVE (NEGATIVE) 04/15/18 19:00 Ur Phencyclidine Scrn NEGATIVE (NEGATIVE) 04/15/18 19:00 Amphetamines Screen NEGATIVE (NEGATIVE) 04/15/18 19:00 U Methamphetamines Scrn NEGATIVE (NEGATIVE) 04/15/18 19:00 U Benzodiazepines Scrn POSITIVE (NEGATIVE) H 04/15/18 19:00 U Cocaine Metab Screen NEGATIVE (NEGATIVE) 04/15/18 19:00 U Cannabinoids Screen NEGATIVE (NEGATIVE) 04/15/18 19:00 Ethyl Alcohol < 10 mg/dL (0-10) 04/15/18 18:50 RPR NONREACTIVE (NONREACTIVE) 04/15/18 18:50 HIV 1&2 Antibody Screen NEGATIVE (NEG) 04/18/18 08:20 - Physical Exam Vitals and I&O: Vital Signs Temp 97.6 F 04/24/18 20:11 Pulse 86 04/24/18 20:11 Resp 18 04/25/18 08:00 BP 126/65 04/24/18 20:11 Pulse Ox 98 04/24/18 20:11 Intake & Output 04/24/18 04/25/18 04/25/18 18:59 06:59 18:59 Intake Total 900 Balance 900 Intake: Oral 900 Other: # Voids 4 # Bowel Movements 1 Active Medications: Current Medications Acetaminophen (Tylenol 650mg/20.3ml Suspension) 650 mg GT Q6HR PRN PRN Reason: MILD PAIN OR TEMP >100.5 Stop: 06/14/18 22:28 Acetylcysteine (Mucomyst 20%) 3 ml GT BID WINIFRED Stop: 06/15/18 08:59 Last Admin: 04/25/18 09:13 Dose: Not Given Albuterol Sulfate (Albuterol 2.5mg/3ml Neb Ud) 2.5 mg HHN BIDRT PRN PRN Reason: Wheezing Stop: 06/16/18 17:55 Last Admin: 04/19/18 07:00 Dose: 2.5 mg Ascorbic Acid (Vitamin C) 500 mg GT DAILY WINIFRED Stop: 06/15/18 08:59 Last Admin: 04/25/18 09:08 Dose: 500 mg Aspirin (Aspirin Chewable) 81 mg GT DAILY WINIFRED Stop: 06/15/18 08:59 Last Admin: 04/25/18 09:08 Dose: 81 mg Bisacodyl (Dulcolax 10 Mg Supp) 10 mg RC DAILY PRN PRN Reason: IF MOM INEFFECTIVE Stop: 06/14/18 22:28 Ferrous Sulfate (Iron) 300 mg PO DAILY WINIFRED Stop: 06/15/18 08:59 Last Admin: 04/25/18 09:12 Dose: 300 mg Lorazepam (Ativan) 1 mg GT Q4HR PRN; Protocol PRN Reason: Anxiety Stop: 05/15/18 21:44 Last Admin: 04/25/18 15:07 Dose: 1 mg Magnesium Hydroxide (Milk Of Magnesia) 30 ml GT HS PRN PRN Reason: Constipation Stop: 06/14/18 22:28 Last Admin: 04/23/18 19:50 Dose: 30 ml Midodrine (Proamatine) 5 mg GT TID [facility] Stop: 06/15/18 08:59 Last Admin: 04/25/18 09:20 Dose: 5 mg Ondansetron HCl (Zofran Odt) 4 mg PO Q6H PRN PRN Reason: Nausea / Vomiting Stop: 06/16/18 17:52 Pantoprazole Sodium (Protonix) 40 mg GT QDAC [facility] Stop: 06/15/18 07:29 Last Admin: 04/25/18 06:36 Dose: 40 mg Pioglitazone HCl (Actos) 15 mg GT DAILY [facility] Stop: 06/15/18 08:59 Last Admin: 04/25/18 09:07 Dose: 15 mg Potassium Chloride (Potassium Chloride Elixir) 20 meq GT DAILY [facility] Stop: 06/15/18 08:59 Last Admin: 04/25/18 09:11 Dose: 20 meq Quetiapine Fumarate (Seroquel) 75 mg PO TID [facility]; Protocol Stop: 06/19/18 08:59 Last Admin: 04/25/18 14:07 Dose: 75 mg Senna (Senna) 8.6 mg GT DAILY [facility] Stop: 06/15/18 08:59 Last Admin: 04/25/18 09:08 Dose: 8.6 mg Sodium Phosphate (Fleet Enema) 135 ml RC Q48H PRN PRN Reason: IF DULCOLAX INEFFECTIVE Stop: 06/14/18 22:28 Topiramate (Topamax) 150 mg GT DAILY [facility] Stop: 06/19/18 08:59 Last Admin: 04/25/18 09:09 Dose: 150 mg Zolpidem Tartrate (Ambien) 5 mg GT HS PRN PRN Reason: Insomnia Stop: 06/14/18 21:44 Last Admin: 04/23/18 21:14 Dose: 5 mg General: Alert, No acute distress HEENT: Atraumatic, PERRLA, EOMI Neck: Supple Cardiovascular: Regular rate Lungs: Clear to auscultation Abdomen: Bowel sounds Assessment/Plan - Problem List Patient Problems: All Active Problems [employer] (Acute) - Assessment Assessment: psychotic - Plan Plan: cpm will monitor Nutritional Asmnt/Malnutr-PDOC - Dietary Evaluation Malnutrition Findings (Please click <Entered> for more info): Nutritional Asmnt/Malnutrition Start: 04/16/18 14: 24 Text: Status: Complete Freq: Protocol: Document 04/16/18 14:24 [email or web address] (Rec: 04/16/18 14:42 LCREED [email or web address]) Nutritional Asmnt/Malnutrition Patient General Information Nutritional Screening High Risk Diagnosis psychosis Pertinent Medical Hx/Surgical Hx DM, CVA/TIA, seizures, dysphagi, s/p PNA, PEG/Gtube, left frontal craniotomy Subjective Information Pt admited with Gtube noted. Pt seen sleeping soundly at time of visit. Spoke with RN, RN stated bolus TF was discontinued since pt is able to tolerate oral diet and ate very well, 100% of breakfast today. Gtube only for medications. Current Diet Order/ Nutrition Support pureed, nectar thick Pertinent Medications vit C, Iron, protonix, seroquel, kcl, senna Pertinent Labs 04/15 Glu 110, abl 3.7, triglycerides Nutritional Hx/Data Height 1.75 m Height (Calculated Centimeters) 175.3 Current Weight (lbs) 111.13 kg Weight (Calculated Kilograms) 111.1 Weight (Calculated Grams) 800974.1 [place] Body Weight 160 Body Mass Index (BMI) 36.1 Weight Status Overweight GI Symptoms GI Symptoms None Last BM none Difficult in: None Skin Integrity/Comment: dryness Current %PO Good (75-100%) Estimated Nutritional Goals BEE in Kcals: Adj wt of IBW Calories/Kcals/Kg 25-30 Kcals Calculated 7639-9049 Protein: Adj wt of IBW Protein g/k Protein Calculated 82 Fluid: ml 2049-2460ml (1ml/kcal) Nutritional Problem No current Nutrition Prob Problem N/A Malnutrition Alert Is there a minimum of two criteria No selected? Query Text:Check all the applicable criteria. A minimum of two criteria are recommended for diagnosis of either severe or non-severe malnutrition. Malnutrition Related to Morbid Obesity Malnutrition related to morbid obesity No Intervention/Recommendation Comments 1. Continue with pureed nectar thick diet as ordered. 2. Monitor PO intake, wt, labs and skin integrity 3. F/U as low risk in 7 days, 04/23, PO check 04/19 Expected Outcomes/Goals Expected Outcomes/Goals 1. PO intake to meet at least 75% of nutritional needs. 2. Wt stability, skin to remain intact, labs to approach WNL.
[2018-04-26] MEDS: Pantoprazole 40 mg/Packet GT SCH (06:52)
[2018-04-26] MEDS: Potassium Chloride Elixir 20 mEq /15 mL UDC GT SCH (09:56)
[2018-04-26] MEDS: Ferrous Sulfate 300 MG/5 ML UDC PO SCH (09:56)
[2018-04-26] MEDS: Aspirin 81mg Chewable Tab GT SCH (09:57)
--- NOTE | 2018-04-26 13:16 | Internal Medicine Prog Note ---
Internal Medicine Subjective - Subjective Service Date: 04/26/18 Patient seen and examined:: with staff Patient is:: asleep Per staff patient has:: tolerating meds Internal Medicine Objective - Results Result Diagrams: 04/19/18 11:00 04/15/18 18:50 Recent Labs: Laboratory Last Values WBC 9.5 Th/cmm (4.8-10.8) 04/19/18 11:00 RBC 4.50 Mil/cmm (4.30-5.70) 04/19/18 11:00 Hgb 13.0 gm/dL (12-16) 04/19/18 11:00 Hct 38.9 % (41.0-60) L 04/19/18 11:00 MCV 86.5 fl (80-99) 04/19/18 11:00 MCH 28.9 pg (26.0-30.0) 04/19/18 11:00 MCHC Differential 33.4 pg (28.0-36.0) 04/19/18 11:00 RDW 15.5 % (11.5-20.0) 04/19/18 11:00 Plt Count 325 Th/cmm (150-400) 04/19/18 11:00 MPV 6.9 fl 04/19/18 11:00 Neutrophils % 71.8 % (40.0-80.0) 04/19/18 11:00 Lymphocytes % 18.1 % (20.0-50.0) L 04/19/18 11:00 Monocytes % 7.0 % (2.0-10.0) 04/19/18 11:00 Eosinophils % 2.7 % (0.0-5.0) 04/19/18 11:00 Basophils % 0.4 % (0.0-2.0) 04/19/18 11:00 Sodium 137 mEq/L (136-145) 04/15/18 18:50 Potassium 4.1 mEq/L (3.5-5.1) 04/15/18 18:50 Chloride 104 mEq/L (98-107) 04/15/18 18:50 Carbon Dioxide 25.2 mEq/L (21.0-31.0) 04/15/18 18:50 Anion Gap 11.9 (7.0-16.0) 07/30/18 18:50 BUN 15 mg/dL (7-25) 04/15/18 18:50 Creatinine 0.7 mg/dL (0.7-1.3) 04/15/18 18:50 Est GFR ( Amer) > 60.0 ml/min (>90) 04/15/18 18:50 Est GFR (Non-Af Amer) > 60.0 ml/min 04/15/18 18:50 BUN/Creatinine Ratio 21.4 04/15/18 18:50 Glucose 110 mg/dL (70-105) H 04/15/18 18:50 POC Glucose 103 MG/DL (70 - 105) 04/22/18 06:08 Hemoglobin A1c % 6.3 % (4.0-6.0) H 04/15/18 18:50 Calcium 9.0 mg/dL (8.6-10.3) 04/15/18 18:50 Total Bilirubin 0.2 mg/dL (0.3-1.0) L 04/15/18 18:50 AST 11 U/L (13-39) L 04/15/18 18:50 ALT 12 U/L (7-52) 04/15/18 18:50 Alkaline Phosphatase 97 U/L (34-104) 04/15/18 18:50 Total Protein 6.4 gm/dL (6.0-8.3) 04/15/18 18:50 Albumin 3.7 gm/dL (4.2-5.5) L 04/15/18 18:50 Globulin 2.7 gm/dL 04/15/18 18:50 Albumin/Globulin Ratio 1.4 (1.0-1.8) 04/15/18 18:50 Triglycerides 197 mg/dL (<150) H 04/15/18 18:50 Cholesterol 175 mg/dL (<200) 04/15/18 18:50 LDL Cholesterol Direct 120 mg/dL (75-193) 04/15/18 18:50 HDL Cholesterol 40 mg/dL (23-92) 04/15/18 18:50 Vitamin B12 486 pg/mL (232-1245) 04/18/18 08:20 TSH 0.96 uIU/ml (0.34-5.60) 04/15/18 18:50 Urine Source CLEAN C 04/15/18 19:00 Urine Color YELLOW 04/15/18 19:00 Urine Clarity CLEAR (CLEAR) 04/15/18 19:00 Urine pH 6.5 (4.6 - 8.0) 04/15/18 19:00 Ur Specific [place] 1.015 (1.005-1.030) 04/15/18 19:00 Urine Protein NEGATIVE mg/dL (NEGATIVE) 04/15/18 19:00 Urine Glucose (UA) NEGATIVE mg/dL (NEGATIVE) 04/15/18 19:00 Urine Ketones NEGATIVE mg/dL (NEGATIVE) 04/15/18 19:00 Urine Blood NEGATIVE (NEGATIVE) 04/15/18 19:00 Urine Nitrate NEGATIVE (NEGATIVE) 04/15/18 19:00 Urine Bilirubin NEGATIVE (NEGATIVE) 04/15/18 19:00 Urine Urobilinogen 0.2 E.U./dL (0.2 - 1.0) 04/15/18 19:00 Ur Leukocyte Esterase NEGATIVE (NEGATIVE) 04/15/18 19:00 Urine RBC NONE SEEN /hpf (0-5) 04/15/18 19:00 Urine WBC 0-2 /hpf (0-5) 04/15/18 19:00 Ur Epithelial Cells OCCASIONAL /lpf (FEW) 04/15/18 19:00 Urine Bacteria OCCASIONAL /hpf (NONE SEEN) 04/15/18 19:00 Salicylates < 25.0 mg/L (30.0-100.0) L 04/15/18 18:50 Urine Opiates Screen NEGATIVE (NEGATIVE) 04/15/18 19:00 Urine Methadone Screen NEGATIVE (NEGATIVE) 04/15/18 19:00 Acetaminophen < 10.0 ug/mL (10.0-30.0) L 04/15/18 18:50 Ur Barbiturates Screen NEGATIVE (NEGATIVE) 04/15/18 19:00 Ur Tricyclics Screen NEGATIVE (NEGATIVE) 04/15/18 19:00 Ur Phencyclidine Scrn NEGATIVE (NEGATIVE) 04/15/18 19:00 Amphetamines Screen NEGATIVE (NEGATIVE) 04/15/18 19:00 U Methamphetamines Scrn NEGATIVE (NEGATIVE) 04/15/18 19:00 U Benzodiazepines Scrn POSITIVE (NEGATIVE) H 04/15/18 19:00 U Cocaine Metab Screen NEGATIVE (NEGATIVE) 04/15/18 19:00 U Cannabinoids Screen NEGATIVE (NEGATIVE) 04/15/18 19:00 Ethyl Alcohol < 10 mg/dL (0-10) 04/15/18 18:50 RPR NONREACTIVE (NONREACTIVE) 04/15/18 18:50 HIV 1&2 Antibody Screen NEGATIVE (NEG) 04/18/18 08:20 - Physical Exam Vitals and I&O: Vital Signs Temp 97.4 F 04/25/18 20:00 Pulse 87 04/25/18 20:00 Resp 19 04/25/18 20:00 BP 129/68 04/25/18 20:00 Pulse Ox 98 04/25/18 20:00 Intake & Output 04/25/18 04/26/18 04/26/18 18:59 06:59 18:59 Intake Total 1000 Balance 1000 Intake: Oral 1000 Other: # Voids 3 # Bowel Movements 1 Active Medications: Current Medications Acetaminophen (Tylenol 650mg/20.3ml Suspension) 650 mg GT Q6HR PRN PRN Reason: MILD PAIN OR TEMP >100.5 Stop: 06/14/18 22:28 Last Admin: 04/25/18 23:24 Dose: 650 mg Acetylcysteine (Mucomyst 20%) 3 ml GT BID WINIFRED Stop: 06/15/18 08:59 Last Admin: 04/26/18 10:27 Dose: Not Given Albuterol Sulfate (Albuterol 2.5mg/3ml Neb Ud) 2.5 mg HHN BIDRT PRN PRN Reason: Wheezing Stop: 06/16/18 17:55 Last Admin: 04/19/18 07:00 Dose: 2.5 mg Ascorbic Acid (Vitamin C) 500 mg GT DAILY WINIFRED Stop: 06/15/18 08:59 Last Admin: 04/26/18 09:57 Dose: 500 mg Aspirin (Aspirin Chewable) 81 mg GT DAILY WINIFRED Stop: 06/15/18 08:59 Last Admin: 04/26/18 09:57 Dose: 81 mg Bisacodyl (Dulcolax 10 Mg Supp) 10 mg RC DAILY PRN PRN Reason: IF MOM INEFFECTIVE Stop: 06/14/18 22:28 Ferrous Sulfate (Iron) 300 mg PO DAILY WINIFRED Stop: 06/15/18 08:59 Last Admin: 04/26/18 09:56 Dose: 300 mg Lorazepam (Ativan) 1 mg GT Q4HR PRN; Protocol PRN Reason: Anxiety Stop: 05/15/18 21:44 Last Admin: 04/26/18 05:48 Dose: 1 mg Magnesium Hydroxide (Milk Of Magnesia) 30 ml GT HS PRN PRN Reason: Constipation Stop: 06/14/18 22:28 Last Admin: 04/23/18 19:50 Dose: 30 ml Midodrine (Proamatine) 5 mg GT TID [facility] Stop: 06/15/18 08:59 Last Admin: 04/26/18 09:56 Dose: 5 mg Ondansetron HCl (Zofran Odt) 4 mg PO Q6H PRN PRN Reason: Nausea / Vomiting Stop: 06/16/18 17:52 Pantoprazole Sodium (Protonix) 40 mg GT QDAC [facility] Stop: 06/15/18 07:29 Last Admin: 04/26/18 06:52 Dose: 40 mg Pioglitazone HCl (Actos) 15 mg GT DAILY [facility] Stop: 06/15/18 08:59 Last Admin: 04/26/18 09:57 Dose: 15 mg Potassium Chloride (Potassium Chloride Elixir) 20 meq GT DAILY [facility] Stop: 06/15/18 08:59 Last Admin: 04/26/18 09:56 Dose: 20 meq Quetiapine Fumarate (Seroquel) 75 mg PO TID [facility]; Protocol Stop: 06/19/18 08:59 Last Admin: 04/26/18 09:57 Dose: 75 mg Senna (Senna) 8.6 mg GT DAILY [facility] Stop: 06/15/18 08:59 Last Admin: 04/26/18 09:58 Dose: 8.6 mg Sodium Phosphate (Fleet Enema) 135 ml RC Q48H PRN PRN Reason: IF DULCOLAX INEFFECTIVE Stop: 06/14/18 22:28 Topiramate (Topamax) 150 mg GT DAILY [facility] Stop: 06/19/18 08:59 Last Admin: 04/26/18 09:57 Dose: 150 mg Zolpidem Tartrate (Ambien) 5 mg GT HS PRN PRN Reason: Insomnia Stop: 06/14/18 21:44 Last Admin: 04/25/18 23:24 Dose: 5 mg General: weak HEENT: NC/AT, PERRLA Neck: Supple Lungs: CTAB Cardiovascular: RRR Abdomen: soft, non-tender, non-distended Other physical findings: scrotal redness Internal Medicine Assmt/Plan - Assessment Assessment: scrotal redness psychosis hx cva dm seizures - Plan Plan: u/s scrotal calmoseptine for redness continue current plan of care Nutritional Asmnt/Malnutr-PDOC - Dietary Evaluation Malnutrition Findings (Please click <Entered> for more info): Nutritional Asmnt/Malnutrition Start: 04/16/18 14: 24 Text: Status: Complete Freq: Protocol: Document 04/16/18 14:24 [email or web address] (Rec: 04/16/18 14:42 LCHENG [email or web address]) Nutritional Asmnt/Malnutrition Patient General Information Nutritional Screening High Risk Diagnosis psychosis Pertinent Medical Hx/Surgical Hx DM, CVA/TIA, seizures, dysphagi, s/p PNA, PEG/Gtube, left frontal craniotomy Subjective Information Pt admited with Gtube noted. Pt seen sleeping soundly at time of visit. Spoke with RN, RN stated bolus TF was discontinued since pt is able to tolerate oral diet and ate very well, 100% of breakfast today. Gtube only for medications. Current Diet Order/ Nutrition Support pureed, nectar thick Pertinent Medications vit C, Iron, protonix, seroquel, kcl, senna Pertinent Labs 04/15 Glu 110, abl 3.7, triglycerides Nutritional Hx/Data Height 5 ft 9 in Height (Calculated Centimeters) 175.3 Current Weight (lbs) 245 lb Weight (Calculated Kilograms) 111.1 Weight (Calculated Grams) 575252.1 [place] Body Weight 160 Body Mass Index (BMI) 36.1 Weight Status Overweight GI Symptoms GI Symptoms None Last BM none Difficult in: None Skin Integrity/Comment: dryness Current %PO Good (75-100%) Estimated Nutritional Goals BEE in Kcals: Adj wt of IBW Calories/Kcals/Kg 25-30 Kcals Calculated 5295-7025 Protein: Adj wt of IBW Protein g/k Protein Calculated 82 Fluid: ml 0-2460ml (1ml/kcal) Nutritional Problem No current Nutrition Prob Problem N/A Malnutrition Alert Is there a minimum of two criteria No selected? Query Text:Check all the applicable criteria. A minimum of two criteria are recommended for diagnosis of either severe or non-severe malnutrition. Malnutrition Related to Morbid Obesity Malnutrition related to morbid obesity No Intervention/Recommendation Comments 1. Continue with pureed nectar thick diet as ordered. 2. Monitor PO intake, wt, labs and skin integrity 3. F/U as low risk in 7 days, 04/23, PO check 04/19 Expected Outcomes/Goals Expected Outcomes/Goals 1. PO intake to meet at least 75% of nutritional needs. 2. Wt stability, skin to remain intact, labs to approach WNL.
[2018-04-26] MEDS: Menthol/Zinc Oxide Oint 113gm Tube TP SCH (16:28)
--- NOTE | 2018-04-26 18:04 | Progress Notes ---
DATE: 04/26/[address] Carrion. Case was discussed with staff of the patient, reviewed records. This is a 57-year-old male who was admitted on 04/15/2018 because of agitation, irritability, aggressive behavior, while ____ this facility naked, and has difficult time following staff directions, angry, inappropriate behavior, sexually and physically. The patient continues to be irritable, currently isolating himself, continues to be unable to participate in meaningful conversation, unpredictable, impulsive, needing redirection, isolating himself. He is on Seroquel 75 mg 3 times a day with no side effects, no sedation, no nausea, no extrapyramidal symptoms. Also on Topamax 150 mg daily. He has a G-tube and will continue outpatient group therapy, milieu therapy, and adjust medications as needed. JOB# [id number]
--- NOTE | 2018-04-26 22:24 | Progress Notes ---
DATE: 04/21/2018 The patient seems to be calmer. He seems to be less agitated and less irritable. The patient still stays in bed most of the time and he still needs redirections. He did not require any emergency medications throughout the day before. Also, ____ easier to follow directions. ASSESSMENT: The patient shows slight improvement. TREATMENT PLAN: Continue current medications including Seroquel and Topamax and will continue to monitor his behavior and his medications closely and continue to work on behavioral modification. JOB# [id number]
[2018-04-27] MEDS: Pantoprazole 40 mg/Packet GT SCH (06:29)
[2018-04-27] MEDS: Aspirin 81mg Chewable Tab GT SCH (09:38)
[2018-04-27] MEDS: Ferrous Sulfate 300 MG/5 ML UDC PO SCH (09:38)
[2018-04-27] MEDS: Menthol/Zinc Oxide Oint 113gm Tube TP SCH ×2 (09:38→16:50)
[2018-04-27] MEDS: Potassium Chloride Elixir 20 mEq /15 mL UDC GT SCH (09:39)
--- NOTE | 2018-04-27 09:57 | Progress Notes ---
DATE: 04/22/2018 SUBJECTIVE: Chart reviewed and the patient interviewed. Also discussed the patient's condition with the staff and reviewed records and labs. The patient is still easily agitated and he still has difficulty following directions. The patient also has episodes of being disruptive and intrusive to others. The patient also has severe mood swings. He also is still in angry and in irritable mood. ASSESSMENT: The patient is still psychotic and agitated. TREATMENT PLAN: Continue to monitor his behavior and condition closely. The patient also needs still redirection and we will continue to redirect the patient. Also, continue adjusting the Seroquel and Topamax, and continue to follow up. JOB# [id number]
--- NOTE | 2018-04-27 20:07 | Progress Notes ---
DATE: 04/24/2018 DATE: 04/24/2018 SUBJECTIVE: Chart reviewed and the patient interviewed. Also discussed the patient's condition with the staff and reviewed records and labs. The patient is still confused and is still delusional and paranoid. The patient also is forgetful and is not aware of the surroundings. He also still has episodes of yelling and screaming, but seems to be less than before. He also still needs redirections. The patient also continued to compliant taking his medications with no side effects of medications. ASSESSMENT: The patient is still psychotic and needs close monitoring. TREATMENT PLAN: Continue to monitor his behavior and condition closely. Also, continue adjusting psychotropic medications and also working on discharge plans. [facility]# [id number]
--- NOTE | 2018-04-27 20:54 | Progress Notes ---
DATE: 04/23/2018 Chart reviewed and the patient interviewed. Also discussed the patient's condition with the staff and reviewed records and labs. The patient continued to be confused and continued to be anxious and need lots of redirections. The patient also is still showing improvement in regard to his behavior and seems to be less agitated. Seroquel was increased a few days ago. Also, decreased mood swings and less disruptive to others. At the same time, the patient continue to adjust to the change in his medications and also is still working on monitoring the medications and continue to [facility]. JOB# [id number]
--- NOTE | 2018-04-27 21:13 | Progress Notes ---
DATE: SUBJECTIVE: Chart reviewed and the patient interviewed. Also discussed the patient's condition with the staff and reviewed the records and labs. The patient is still suspicious and is still paranoid. The patient also is confused and still needs lots of redirections. The patient also is withdrawn and wants to be left alone. Otherwise, the patient is compliant with taking his medications with no side effects of medications. ASSESSMENT: The patient is still agitated and still needs lots of redirections. TREATMENT PLAN: Continue monitoring behavior and condition closely. Also, continue adjusting psychotropic medications and followup. JOB# [id number]
--- NOTE | 2018-04-27 21:40 | Progress Notes ---
DATE: 04/27/2018 SUBJECTIVE: A 57-year-old male transferred from the [facility]val[facility] home, increased agitation, aggressive behaviors, apparently walking around the facility naked. The patient states he is here for "re-evaluation," noted to be confused, disoriented, forgetful, does not know why he is here, does not know the year or the month; for example, not a good historian. Per staff, periods of disorientation, confusion, forgetful, noted to be at times impulsive, unpredictable, gets agitated, anxious. Medications were noted. ASSESSMENT: The patient is still becoming upset, sometimes requiring emergency medications. Given Haldol cocktail recently because he was yelling, threatening, posturing. PLAN: We will continue to monitor. The patient remains labile, still impulsive. JOB# [id number]
--- NOTE | 2018-04-27 22:19 | Progress Notes ---
DATE: 04/27/2018 SUBJECTIVE: The patient was seen in the room. The patient is agitated, trying to pull out his G-tube. The patient is in no acute distress. OBJECTIVE: VITAL SIGNS: Temperature 98, heart rate 105, respiration of 18, blood pressure 137/66, 96% on room air. HEENT: Head is atraumatic and normocephalic. Eyes: Bilateral conjunctivae are clear. Bilateral pupils equal, round and reactive. NECK: Supple. No JVD. CARDIOVASCULAR: S1 and S2, without murmur. PULMONARY: Clear to auscultation. GASTROINTESTINAL: Soft and nontender without guarding. Positive bowel sounds. MUSCULOSKELETAL: No clubbing. No cyanosis. ASSESSMENT: 1. Schizoaffective disorder. 2. Diabetes. 3. Seizure. 4. History of cerebrovascular accident. 5. Dysphagia. PLAN: We will continue to keep the patient inpatient Psychiatric unit and will follow up with a psychiatrist to monitor the patient's condition and behavior. Treatment plans were discussed with the patient's nurse. Treatment must were discussed with Dr. Sanders. JOB# [id number]
[2018-04-28] MEDS: Pantoprazole 40 mg/Packet GT SCH (06:32)
--- NOTE | 2018-04-28 07:37 | Progress Notes ---
DATE: 04/28/2018 SUBJECTIVE: The patient coming in from a convalescent home, agitated, aggressive, currently in a Sara chair. States he feels "okay." States he wants to go home, keeps repeating "send me home, send me home, send me home." He still in a Sara chair. Symptom is unruly, agitated, impulsive, needing constant redirection and prompting. He has been calm over the past few hours per nursing staff, but remains highly impulsive, unpredictable, can get very mad very quickly, agitated at times, depressed, states he is depressed because he is in the hospital. ASSESSMENT: The patient unruly, agitated, poor orientation and medications were noted. PLAN: We will continue to monitor, titrate and adjust medications. JOB# [id number]
[2018-04-28] MEDS: Potassium Chloride Elixir 20 mEq /15 mL UDC GT SCH (09:12)
[2018-04-28] MEDS: Ferrous Sulfate 300 MG/5 ML UDC PO SCH (09:12)
[2018-04-28] MEDS: Aspirin 81mg Chewable Tab GT SCH (09:14)
[2018-04-28] MEDS ORDERED: Haloperidol Lactate 5 mg/mL 1mL Vial IM ONE ×2 (09:15→15:00)
[2018-04-28] MEDS: Menthol/Zinc Oxide Oint 113gm Tube TP SCH ×2 (09:16→17:57)
[2018-04-28] MEDS ORDERED: Haloperidol Lactate 5 mg/mL 1mL Vial ONE (09:20)
--- NOTE | 2018-04-28 10:06 | Diagnostic Imaging Report ---
Exam: Testicular ultrasound HISTORY: Tenderness. Findings: Real-time ultrasound summation scrotum was performed multiple planes The study demonstrates normal just at the bilaterally with normal vascular flow. The right testicle measures 4.1 x 2 x 3.1 cm left testicle measures 4.2 x 2.2 x 2.9 cm. Right epididymal small cysts are noted. There is no evidence of varicocele hydroceles. Left. The mass poorly visualized. IMPRESSION: Essentially unremarkable examination of the scrotum. Nonvisualization of left epididymis.
--- NOTE | 2018-04-28 11:30 | General Progress Note ---
Subjective - Review of Systems Events since last encounter: patient agitated confused, irritable Subjective: Patient remains confused, and agitated at times Objective - Results Result Diagrams: 04/19/18 11:00 04/15/18 18:50 Recent Labs: Laboratory Last Values WBC 9.5 Th/cmm (4.8-10.8) 04/19/18 11:00 RBC 4.50 Mil/cmm (4.30-5.70) 04/19/18 11:00 Hgb 13.0 gm/dL (12-16) 04/19/18 11:00 Hct 38.9 % (41.0-60) L 04/19/18 11:00 MCV 86.5 fl (80-99) 04/19/18 11:00 MCH 28.9 pg (26.0-30.0) 04/19/18 11:00 MCHC Differential 33.4 pg (28.0-36.0) 04/19/18 11:00 RDW 15.5 % (11.5-20.0) 04/19/18 11:00 Plt Count 325 Th/cmm (150-400) 04/19/18 11:00 MPV 6.9 fl 04/19/18 11:00 Neutrophils % 71.8 % (40.0-80.0) 04/19/18 11:00 Lymphocytes % 18.1 % (20.0-50.0) L 04/19/18 11:00 Monocytes % 7.0 % (2.0-10.0) 04/19/18 11:00 Eosinophils % 2.7 % (0.0-5.0) 04/19/18 11:00 Basophils % 0.4 % (0.0-2.0) 04/19/18 11:00 Sodium 137 mEq/L (136-145) 04/15/18 18:50 Potassium 4.1 mEq/L (3.5-5.1) 04/15/18 18:50 Chloride 104 mEq/L (98-107) 04/15/18 18:50 Carbon Dioxide 25.2 mEq/L (21.0-31.0) 04/15/18 18:50 Anion Gap 11.9 (7.0-16.0) 04/15/18 18:50 BUN 15 mg/dL (7-25) 04/15/18 18:50 Creatinine 0.7 mg/dL (0.7-1.3) 04/15/18 18:50 Est GFR ( Amer) > 60.0 ml/min (>90) 04/15/18 18:50 Est GFR (Non-Af Amer) > 60.0 ml/min 04/15/18 18:50 BUN/Creatinine Ratio 21.4 04/15/18 18:50 Glucose 110 mg/dL (70-105) H 04/15/18 18:50 POC Glucose 139 MG/DL (70 - 105) H 04/27/18 06:48 Hemoglobin A1c % 6.3 % (4.0-6.0) H 04/15/18 18:50 Calcium 9.0 mg/dL (8.6-10.3) 04/15/18 18:50 Total Bilirubin 0.2 mg/dL (0.3-1.0) L 04/15/18 18:50 AST 11 U/L (13-39) L 04/15/18 18:50 ALT 12 U/L (7-52) 04/15/18 18:50 Alkaline Phosphatase 97 U/L (34-104) 04/15/18 18:50 Total Protein 6.4 gm/dL (6.0-8.3) 04/15/18 18:50 Albumin 3.7 gm/dL (4.2-5.5) L 04/15/18 18:50 Globulin 2.7 gm/dL 04/15/18 18:50 Albumin/Globulin Ratio 1.4 (1.0-1.8) 04/15/18 18:50 Triglycerides 197 mg/dL (<150) H 04/15/18 18:50 Cholesterol 175 mg/dL (<200) 04/15/18 18:50 LDL Cholesterol Direct 120 mg/dL (75-193) 04/15/18 18:50 HDL Cholesterol 40 mg/dL (23-92) 04/15/18 18:50 Vitamin B12 486 pg/mL (232-1245) 04/18/18 08:20 TSH 0.96 uIU/ml (0.34-5.60) 04/15/18 18:50 Urine Source CLEAN C 04/15/18 19:00 Urine Color YELLOW 04/15/18 19:00 Urine Clarity CLEAR (CLEAR) 04/15/18 19:00 Urine pH 6.5 (4.6 - 8.0) 04/15/18 19:00 Ur Specific [place] 1.015 (1.005-1.030) 04/15/18 19:00 Urine Protein NEGATIVE mg/dL (NEGATIVE) 04/15/18 19:00 Urine Glucose (UA) NEGATIVE mg/dL (NEGATIVE) 04/15/18 19:00 Urine Ketones NEGATIVE mg/dL (NEGATIVE) 04/15/18 19:00 Urine Blood NEGATIVE (NEGATIVE) 04/15/18 19:00 Urine Nitrate NEGATIVE (NEGATIVE) 04/15/18 19:00 Urine Bilirubin NEGATIVE (NEGATIVE) 04/15/18 19:00 Urine Urobilinogen 0.2 E.U./dL (0.2 - 1.0) 04/15/18 19:00 Ur Leukocyte Esterase NEGATIVE (NEGATIVE) 04/15/18 19:00 Urine RBC NONE SEEN /hpf (0-5) 04/15/18 19:00 Urine WBC 0-2 /hpf (0-5) 04/15/18 19:00 Ur Epithelial Cells OCCASIONAL /lpf (FEW) 04/15/18 19:00 Urine Bacteria OCCASIONAL /hpf (NONE SEEN) 04/15/18 19:00 Salicylates < 25.0 mg/L (30.0-100.0) L 04/15/18 18:50 Urine Opiates Screen NEGATIVE (NEGATIVE) 04/15/18 19:00 Urine Methadone Screen NEGATIVE (NEGATIVE) 04/15/18 19:00 Acetaminophen < 10.0 ug/mL (10.0-30.0) L 04/15/18 18:50 Ur Barbiturates Screen NEGATIVE (NEGATIVE) 04/15/18 19:00 Ur Tricyclics Screen NEGATIVE (NEGATIVE) 04/15/18 19:00 Ur Phencyclidine Scrn NEGATIVE (NEGATIVE) 04/15/18 19:00 Amphetamines Screen NEGATIVE (NEGATIVE) 04/15/18 19:00 U Methamphetamines Scrn NEGATIVE (NEGATIVE) 04/15/18 19:00 U Benzodiazepines Scrn POSITIVE (NEGATIVE) H 04/15/18 19:00 U Cocaine Metab Screen NEGATIVE (NEGATIVE) 04/15/18 19:00 U Cannabinoids Screen NEGATIVE (NEGATIVE) 04/15/18 19:00 Ethyl Alcohol < 10 mg/dL (0-10) 04/15/18 18:50 RPR NONREACTIVE (NONREACTIVE) 04/15/18 18:50 HIV 1&2 Antibody Screen NEGATIVE (NEG) 04/18/18 08:20 - Physical Exam Vitals and I&O: Vital Signs Temp 97 F 04/28/18 06:51 Pulse 98 04/28/18 07:51 Resp 18 04/28/18 08:00 BP 110/73 04/28/18 06:51 Pulse Ox 94 04/28/18 07:51 Intake & Output 04/27/18 04/28/18 04/28/18 18:59 06:59 18:59 Intake Total 1800 120 Balance 1800 120 Intake: Oral 1800 120 Other: # Voids 4 3 # Bowel Movements 0 Active Medications: Current Medications Acetaminophen (Tylenol 650mg/20.3ml Suspension) 650 mg GT Q6HR PRN PRN Reason: MILD PAIN OR TEMP >100.5 Stop: 06/14/18 22:28 Last Admin: 04/25/18 23:24 Dose: 650 mg Albuterol Sulfate (Albuterol 2.5mg/3ml Neb Ud) 2.5 mg HHN BIDRT PRN PRN Reason: Wheezing Stop: 06/16/18 17:55 Last Admin: 04/19/18 07:00 Dose: 2.5 mg Ascorbic Acid (Vitamin C) 500 mg GT DAILY [facility] Stop: 06/15/18 08:59 Last Admin: 04/28/18 09:13 Dose: 500 mg Aspirin (Aspirin Chewable) 81 mg GT DAILY [facility] Stop: 06/15/18 08:59 Last Admin: 04/28/18 09:14 Dose: 81 mg Bisacodyl (Dulcolax 10 Mg Supp) 10 mg RC DAILY PRN PRN Reason: IF MOM INEFFECTIVE Stop: 06/14/18 22:28 Calamine/Phenol (Calmoseptine) 1 appl TP BID [facility] Stop: 06/25/18 16:59 Last Admin: 04/28/18 09:16 Dose: 1 appl Ferrous Sulfate (Iron) 300 mg PO DAILY [facility] Stop: 06/15/18 08:59 Last Admin: 04/28/18 09:12 Dose: 300 mg Lorazepam (Ativan) 1 mg GT Q4HR PRN; Protocol PRN Reason: Anxiety Stop: 05/15/18 21:44 Last Admin: 04/28/18 09:13 Dose: 1 mg Magnesium Hydroxide (Milk Of Magnesia) 30 ml GT HS PRN PRN Reason: Constipation Stop: 06/14/18 22:28 Last Admin: 04/23/18 19:50 Dose: 30 ml Midodrine (Proamatine) 5 mg GT TID [facility] Stop: 06/15/18 08:59 Last Admin: 04/28/18 09:16 Dose: 5 mg Ondansetron HCl (Zofran Odt) 4 mg PO Q6H PRN PRN Reason: Nausea / Vomiting Stop: 06/16/18 17:52 Pantoprazole Sodium (Protonix) 40 mg GT QDAC [facility] Stop: 06/15/18 07:29 Last Admin: 04/28/18 06:32 Dose: 40 mg Pioglitazone HCl (Actos) 15 mg GT DAILY [facility] Stop: 06/15/18 08:59 Last Admin: 04/28/18 09:14 Dose: 15 mg Potassium Chloride (Potassium Chloride Elixir) 20 meq GT DAILY [facility] Stop: 06/15/18 08:59 Last Admin: 04/28/18 09:12 Dose: 20 meq Quetiapine Fumarate (Seroquel) 75 mg PO TID [facility]; Protocol Stop: 06/19/18 08:59 Last Admin: 04/28/18 09:13 Dose: 75 mg Senna (Senna) 8.6 mg GT DAILY [facility] Stop: 06/15/18 08:59 Last Admin: 04/28/18 09:13 Dose: 8.6 mg Sodium Phosphate (Fleet Enema) 135 ml RC Q48H PRN PRN Reason: IF DULCOLAX INEFFECTIVE Stop: 06/14/18 22:28 Topiramate (Topamax) 150 mg GT DAILY [facility] Stop: 06/19/18 08:59 Last Admin: 04/28/18 09:14 Dose: 150 mg Zolpidem Tartrate (Ambien) 5 mg GT HS PRN PRN Reason: Insomnia Stop: 06/14/18 21:44 Last Admin: 04/27/18 21:10 Dose: 5 mg General: Alert, No acute distress HEENT: Atraumatic, PERRLA, EOMI Neck: Supple Cardiovascular: Regular rate Lungs: Clear to auscultation Abdomen: Bowel sounds Assessment/Plan - Problem List Patient Problems: All Active Problems AGGRESSIVE BEHAVIOR TOWARD STAFF (Acute) - Assessment Assessment: psychotic - Plan Plan: cpm will monitor Nutritional Asmnt/Malnutr-PDOC - Dietary Evaluation Malnutrition Findings (Please click <Entered> for more info): Nutritional Asmnt/Malnutrition Start: 04/16/18 14: 24 Text: Status: Complete Freq: Protocol: Document 04/16/18 14:24 [email or web address] (Rec: 04/16/18 14:42 [email or web address] [email or web address]) Nutritional Asmnt/Malnutrition Patient General Information Nutritional Screening High Risk Diagnosis psychosis Pertinent Medical Hx/Surgical Hx DM, CVA/TIA, seizures, dysphagi, s/p PNA, PEG/Gtube, left frontal craniotomy Subjective Information Pt admited with Gtube noted. Pt seen sleeping soundly at time of visit. Spoke with RN, RN stated bolus TF was discontinued since pt is able to tolerate oral diet and ate very well, 100% of breakfast today. Gtube only for medications. Current Diet Order/ Nutrition Support pureed, nectar thick Pertinent Medications vit C, Iron, protonix, seroquel, kcl, senna Pertinent Labs 04/15 Glu 110, abl 3.7, triglycerides Nutritional Hx/Data Height 1.75 m Height (Calculated Centimeters) 175.3 Current Weight (lbs) 111.13 kg Weight (Calculated Kilograms) 111.1 Weight (Calculated Grams) 321009.1 [place] Body Weight 160 Body Mass Index (BMI) 36.1 Weight Status Overweight GI Symptoms GI Symptoms None Last BM none Difficult in: None Skin Integrity/Comment: dryness Current %PO Good (75-100%) Estimated Nutritional Goals BEE in Kcals: Adj wt of IBW Calories/Kcals/Kg 25-30 Kcals Calculated 1780-0513 Protein: Adj wt of IBW Protein g/k Protein Calculated 82 Fluid: ml 0-2460ml (1ml/kcal) Nutritional Problem No current Nutrition Prob Problem N/A Malnutrition Alert Is there a minimum of two criteria No selected? Query Text:Check all the applicable criteria. A minimum of two criteria are recommended for diagnosis of either severe or non-severe malnutrition. Malnutrition Related to Morbid Obesity Malnutrition related to morbid obesity No Intervention/Recommendation Comments 1. Continue with pureed nectar thick diet as ordered. 2. Monitor PO intake, wt, labs and skin integrity 3. F/U as low risk in 7 days, 04/23, PO check 04/19 Expected Outcomes/Goals Expected Outcomes/Goals 1. PO intake to meet at least 75% of nutritional needs. 2. Wt stability, skin to remain intact, labs to approach WNL.
[2018-04-29] MEDS: Aspirin 81mg Chewable Tab GT SCH (09:11)
[2018-04-29] MEDS: Potassium Chloride Elixir 20 mEq /15 mL UDC GT SCH (09:17)
[2018-04-29] MEDS: Ferrous Sulfate 300 MG/5 ML UDC PO SCH (09:17)
[2018-04-29] MEDS: Menthol/Zinc Oxide Oint 113gm Tube TP SCH ×2 (15:56→18:30)
--- NOTE | 2018-04-30 00:47 | Progress Notes ---
DATE: 04/29/2018 SUBJECTIVE: Case was discussed with staff of the patient, reviewed records. The patient was out of bed today. He continues preoccupied with wanting to go home. He continues to be a habit of agitation. He continues to be irritable, labile, unpredictable, impulsive, and unable to make a plan for self-care. He is compliant with the medication with no side effect, no sedation, no nausea, and no extrapyramidal symptoms. We will continue to work with the patient in group therapy, milieu therapy, and adjust the medications as needed. JOB# [id number]
[2018-04-30] MEDS: Pantoprazole 40 mg/Packet GT SCH (06:34)
[2018-04-30] MEDS: Aspirin 81mg Chewable Tab GT SCH (09:11)
[2018-04-30] MEDS: Ferrous Sulfate 300 MG/5 ML UDC PO SCH (09:11)
[2018-04-30] MEDS: Menthol/Zinc Oxide Oint 113gm Tube TP SCH (10:47)
--- NOTE | 2018-04-30 18:42 | General Progress Note ---
Subjective - Review of Systems Subjective: Patient remains confused, and agitated at times Objective - Results Result Diagrams: 04/19/18 11:00 04/15/18 18:50 Recent Labs: Laboratory Last Values WBC 9.5 Th/cmm (4.8-10.8) 04/19/18 11:00 RBC 4.50 Mil/cmm (4.30-5.70) 04/19/18 11:00 Hgb 13.0 gm/dL (12-16) 04/19/18 11:00 Hct 38.9 % (41.0-60) L 04/19/18 11:00 MCV 86.5 fl (80-99) 04/19/18 11:00 MCH 28.9 pg (26.0-30.0) 04/19/18 11:00 MCHC Differential 33.4 pg (28.0-36.0) 04/19/18 11:00 RDW 15.5 % (11.5-20.0) 04/19/18 11:00 Plt Count 325 Th/cmm (150-400) 04/19/18 11:00 MPV 6.9 fl 04/19/18 11:00 Neutrophils % 71.8 % (40.0-80.0) 04/19/18 11:00 Lymphocytes % 18.1 % (20.0-50.0) L 04/19/18 11:00 Monocytes % 7.0 % (2.0-10.0) 04/19/18 11:00 Eosinophils % 2.7 % (0.0-5.0) 04/19/18 11:00 Basophils % 0.4 % (0.0-2.0) 04/19/18 11:00 Sodium 137 mEq/L (136-145) 04/15/18 18:50 Potassium 4.1 mEq/L (3.5-5.1) 04/15/18 18:50 Chloride 104 mEq/L (98-107) 04/15/18 18:50 Carbon Dioxide 25.2 mEq/L (21.0-31.0) 04/15/18 18:50 Anion Gap 11.9 (7.0-16.0) 04/15/18 18:50 BUN 15 mg/dL (7-25) 04/15/18 18:50 Creatinine 0.7 mg/dL (0.7-1.3) 04/15/18 18:50 Est GFR ( Amer) > 60.0 ml/min (>90) 04/15/18 18:50 Est GFR (Non-Af Amer) > 60.0 ml/min 04/15/18 18:50 BUN/Creatinine Ratio 21.4 04/15/18 18:50 Glucose 110 mg/dL (70-105) H 04/15/18 18:50 POC Glucose 147 MG/DL (70 - 105) H 04/29/18 21:56 Hemoglobin A1c % 6.3 % (4.0-6.0) H 04/15/18 18:50 Calcium 9.0 mg/dL (8.6-10.3) 04/15/18 18:50 Total Bilirubin 0.2 mg/dL (0.3-1.0) L 04/15/18 18:50 AST 11 U/L (13-39) L 04/15/18 18:50 ALT 12 U/L (7-52) 04/15/18 18:50 Alkaline Phosphatase 97 U/L (34-104) 04/15/18 18:50 Total Protein 6.4 gm/dL (6.0-8.3) 04/15/18 18:50 Albumin 3.7 gm/dL (4.2-5.5) L 04/15/18 18:50 Globulin 2.7 gm/dL 04/15/18 18:50 Albumin/Globulin Ratio 1.4 (1.0-1.8) 04/15/18 18:50 Triglycerides 197 mg/dL (<150) H 04/15/18 18:50 Cholesterol 175 mg/dL (<200) 04/15/18 18:50 LDL Cholesterol Direct 120 mg/dL (75-193) 04/15/18 18:50 HDL Cholesterol 40 mg/dL (23-92) 04/15/18 18:50 Vitamin B12 486 pg/mL (232-1245) 04/18/18 08:20 TSH 0.96 uIU/ml (0.34-5.60) 04/15/18 18:50 Urine Source CLEAN C 04/15/18 19:00 Urine Color YELLOW 04/15/18 19:00 Urine Clarity CLEAR (CLEAR) 04/15/18 19:00 Urine pH 6.5 (4.6 - 8.0) 04/15/18 19:00 Ur Specific [place] 1.015 (1.005-1.030) 04/15/18 19:00 Urine Protein NEGATIVE mg/dL (NEGATIVE) 04/15/18 19:00 Urine Glucose (UA) NEGATIVE mg/dL (NEGATIVE) 04/15/18 19:00 Urine Ketones NEGATIVE mg/dL (NEGATIVE) 04/15/18 19:00 Urine Blood NEGATIVE (NEGATIVE) 04/15/18 19:00 Urine Nitrate NEGATIVE (NEGATIVE) 04/15/18 19:00 Urine Bilirubin NEGATIVE (NEGATIVE) 04/15/18 19:00 Urine Urobilinogen 0.2 E.U./dL (0.2 - 1.0) 04/15/18 19:00 Ur Leukocyte Esterase NEGATIVE (NEGATIVE) 04/15/18 19:00 Urine RBC NONE SEEN /hpf (0-5) 04/15/18 19:00 Urine WBC 0-2 /hpf (0-5) 04/15/18 19:00 Ur Epithelial Cells OCCASIONAL /lpf (FEW) 04/15/18 19:00 Urine Bacteria OCCASIONAL /hpf (NONE SEEN) 04/15/18 19:00 Salicylates < 25.0 mg/L (30.0-100.0) L 04/15/18 18:50 Urine Opiates Screen NEGATIVE (NEGATIVE) 04/15/18 19:00 Urine Methadone Screen NEGATIVE (NEGATIVE) 04/15/18 19:00 Acetaminophen < 10.0 ug/mL (10.0-30.0) L 04/15/18 18:50 Ur Barbiturates Screen NEGATIVE (NEGATIVE) 04/15/18 19:00 Ur Tricyclics Screen NEGATIVE (NEGATIVE) 04/15/18 19:00 Ur Phencyclidine Scrn NEGATIVE (NEGATIVE) 04/15/18 19:00 Amphetamines Screen NEGATIVE (NEGATIVE) 04/15/18 19:00 U Methamphetamines Scrn NEGATIVE (NEGATIVE) 04/15/18 19:00 U Benzodiazepines Scrn POSITIVE (NEGATIVE) H 04/15/18 19:00 U Cocaine Metab Screen NEGATIVE (NEGATIVE) 04/15/18 19:00 U Cannabinoids Screen NEGATIVE (NEGATIVE) 04/15/18 19:00 Ethyl Alcohol < 10 mg/dL (0-10) 04/15/18 18:50 RPR NONREACTIVE (NONREACTIVE) 04/15/18 18:50 HIV 1&2 Antibody Screen NEGATIVE (NEG) 04/18/18 08:20 - Physical Exam Vitals and I&O: Vital Signs Temp 98.1 F 04/30/18 16:38 Pulse 84 04/30/18 16:38 Resp 20 04/30/18 16:38 BP 136/80 04/30/18 16:38 Pulse Ox 93 04/30/18 16:38 Intake & Output 04/29/18 04/30/18 04/30/18 18:59 06:59 18:59 Intake Total 932 503 7958 Balance 041 281 5522 Intake: Oral 808 431 6435 Other: # Voids 3 2 4 # Bowel Movements 1 0 1 Active Medications: Current Medications Acetaminophen (Tylenol 650mg/20.3ml Suspension) 650 mg GT Q6HR PRN PRN Reason: MILD PAIN OR TEMP >100.5 Stop: 06/14/18 22:28 Last Admin: 04/25/18 23:24 Dose: 650 mg Albuterol Sulfate (Albuterol 2.5mg/3ml Neb Ud) 2.5 mg HHN BIDRT PRN PRN Reason: Wheezing Stop: 06/16/18 17:55 Last Admin: 04/19/18 07:00 Dose: 2.5 mg Ascorbic Acid (Vitamin C) 500 mg GT DAILY [facility] Stop: 06/15/18 08:59 Last Admin: 04/30/18 09:11 Dose: 500 mg Aspirin (Aspirin Chewable) 81 mg GT DAILY [facility] Stop: 06/15/18 08:59 Last Admin: 04/30/18 09:11 Dose: 81 mg Bisacodyl (Dulcolax 10 Mg Supp) 10 mg RC DAILY PRN PRN Reason: IF MOM INEFFECTIVE Stop: 06/14/18 22:28 Calamine/Phenol (Calmoseptine) 1 appl TP BID [facility] Stop: 06/25/18 16:59 Last Admin: 04/30/18 10:47 Dose: Not Given Ferrous Sulfate (Iron) 300 mg PO DAILY [facility] Stop: 06/15/18 08:59 Last Admin: 04/30/18 09:11 Dose: 300 mg Lorazepam (Ativan) 1 mg GT Q4HR PRN; Protocol PRN Reason: Anxiety Stop: 05/15/18 21:44 Last Admin: 04/30/18 09:11 Dose: 1 mg Magnesium Hydroxide (Milk Of Magnesia) 30 ml GT HS PRN PRN Reason: Constipation Stop: 06/14/18 22:28 Last Admin: 04/23/18 19:50 Dose: 30 ml Midodrine (Proamatine) 5 mg GT TID [facility] Stop: 06/15/18 08:59 Last Admin: 04/30/18 14:44 Dose: 5 mg Ondansetron HCl (Zofran Odt) 4 mg PO Q6H PRN PRN Reason: Nausea / Vomiting Stop: 06/16/18 17:52 Pantoprazole Sodium (Protonix) 40 mg GT QDAC [facility] Stop: 06/15/18 07:29 Last Admin: 04/30/18 06:34 Dose: 40 mg Pioglitazone HCl (Actos) 15 mg GT DAILY [facility] Stop: 06/15/18 08:59 Last Admin: 04/30/18 09:11 Dose: 15 mg Quetiapine Fumarate (Seroquel) 75 mg PO TID [facility]; Protocol Stop: 06/19/18 08:59 Last Admin: 04/30/18 14:44 Dose: 75 mg Senna (Senna) 8.6 mg GT DAILY [facility] Stop: 06/15/18 08:59 Last Admin: 04/30/18 09:11 Dose: 8.6 mg Sodium Phosphate (Fleet Enema) 135 ml RC Q48H PRN PRN Reason: IF DULCOLAX INEFFECTIVE Stop: 06/14/18 22:28 Topiramate (Topamax) 150 mg GT DAILY [facility] Stop: 06/19/18 08:59 Last Admin: 04/30/18 09:11 Dose: 150 mg Zolpidem Tartrate (Ambien) 5 mg GT HS PRN PRN Reason: Insomnia Stop: 06/14/18 21:44 Last Admin: 04/29/18 21:06 Dose: 5 mg General: Alert, No acute distress HEENT: Atraumatic, PERRLA, EOMI Neck: Supple Cardiovascular: Regular rate Lungs: Clear to auscultation Abdomen: Bowel sounds Assessment/Plan - Problem List Patient Problems: All Active Problems AGGRESSIVE BEHAVIOR TOWARD STAFF (Acute) - Assessment Assessment: psychotic - Plan Plan: cpm will monitor Nutritional Asmnt/Malnutr-PDOC - Dietary Evaluation Malnutrition Findings (Please click <Entered> for more info): Nutritional Asmnt/Malnutrition Start: 04/16/18 14: 24 Text: Status: Complete Freq: Protocol: Document 04/16/18 14:24 TREVERREED (Rec: 04/16/18 14:42 [email or web address]) Nutritional Asmnt/Malnutrition Patient General Information Nutritional Screening High Risk Diagnosis psychosis Pertinent Medical Hx/Surgical Hx DM, CVA/TIA, seizures, dysphagi, s/p PNA, PEG/Gtube, left frontal craniotomy Subjective Information Pt admited with Gtube noted. Pt seen sleeping soundly at time of visit. Spoke with RN, RN stated bolus TF was discontinued since pt is able to tolerate oral diet and ate very well, 100% of breakfast today. Gtube only for medications. Current Diet Order/ Nutrition Support pureed, nectar thick Pertinent Medications vit C, Iron, protonix, seroquel, kcl, senna Pertinent Labs 04/15 Glu 110, abl 3.7, triglycerides Nutritional Hx/Data Height 1.75 m Height (Calculated Centimeters) 175.3 Current Weight (lbs) 111.13 kg Weight (Calculated Kilograms) 111.1 Weight (Calculated Grams) 836271.1 [place] Body Weight 160 Body Mass Index (BMI) 36.1 Weight Status Overweight GI Symptoms GI Symptoms None Last BM none Difficult in: None Skin Integrity/Comment: dryness Current %PO Good (75-100%) Estimated Nutritional Goals BEE in Kcals: Adj wt of IBW Calories/Kcals/Kg 25-30 Kcals Calculated 0732-9430 Protein: Adj wt of IBW Protein g/k Protein Calculated 82 Fluid: ml 0-2460ml (1ml/kcal) Nutritional Problem No current Nutrition Prob Problem N/A Malnutrition Alert Is there a minimum of two criteria No selected? Query Text:Check all the applicable criteria. A minimum of two criteria are recommended for diagnosis of either severe or non-severe malnutrition. Malnutrition Related to Morbid Obesity Malnutrition related to morbid obesity No Intervention/Recommendation Comments 1. Continue with pureed nectar thick diet as ordered. 2. Monitor PO intake, wt, labs and skin integrity 3. F/U as low risk in 7 days, 04/23, PO check 04/19 Expected Outcomes/Goals Expected Outcomes/Goals 1. PO intake to meet at least 75% of nutritional needs. 2. Wt stability, skin to remain intact, labs to approach WNL.
--- NOTE | 2018-04-30 21:39 | Progress Notes ---
DATE: 04/30/2018 Case was discussed with staff of the patient, reviewed records. The patient continues to be unpredictable and impulsive. He was naked in the room, talking to himself, unable to make safe plan for self-care and internally preoccupied. He is compliant with the medication with no side effects, no sedation, no nausea, no extrapyramidal symptoms. We will continue outpatient group therapy, milieu therapy, adjust medication as needed. JOB# [id number]
[2018-05-01] MEDS: Pantoprazole 40 mg/Packet GT SCH (06:33)
[2018-05-01] MEDS: Menthol/Zinc Oxide Oint 113gm Tube TP SCH ×2 (09:30→17:32)
[2018-05-01] MEDS: Ferrous Sulfate 300 MG/5 ML UDC PO SCH (09:52)
[2018-05-01] MEDS: Aspirin 81mg Chewable Tab GT SCH (09:53)
--- NOTE | 2018-05-01 14:53 | General Progress Note ---
Subjective - Review of Systems Events since last encounter: patient confused unpredictable irritable Subjective: Patient remains confused, and agitated at times Objective - Results Result Diagrams: 04/19/18 11:00 04/15/18 18:50 Recent Labs: Laboratory Last Values WBC 9.5 Th/cmm (4.8-10.8) 04/19/18 11:00 RBC 4.50 Mil/cmm (4.30-5.70) 04/19/18 11:00 Hgb 13.0 gm/dL (12-16) 04/19/18 11:00 Hct 38.9 % (41.0-60) L 04/19/18 11:00 MCV 86.5 fl (80-99) 04/19/18 11:00 MCH 28.9 pg (26.0-30.0) 04/19/18 11:00 MCHC Differential 33.4 pg (28.0-36.0) 04/19/18 11:00 RDW 15.5 % (11.5-20.0) 04/19/18 11:00 Plt Count 325 Th/cmm (150-400) 04/19/18 11:00 MPV 6.9 fl 04/19/18 11:00 Neutrophils % 71.8 % (40.0-80.0) 04/19/18 11:00 Lymphocytes % 18.1 % (20.0-50.0) L 04/19/18 11:00 Monocytes % 7.0 % (2.0-10.0) 04/19/18 11:00 Eosinophils % 2.7 % (0.0-5.0) 04/19/18 11:00 Basophils % 0.4 % (0.0-2.0) 04/19/18 11:00 Sodium 137 mEq/L (136-145) 04/15/18 18:50 Potassium 4.1 mEq/L (3.5-5.1) 04/15/18 18:50 Chloride 104 mEq/L (98-107) 04/15/18 18:50 Carbon Dioxide 25.2 mEq/L (21.0-31.0) 04/15/18 18:50 Anion Gap 11.9 (7.0-16.0) 04/15/18 18:50 BUN 15 mg/dL (7-25) 04/15/18 18:50 Creatinine 0.7 mg/dL (0.7-1.3) 04/15/18 18:50 Est GFR ( Amer) > 60.0 ml/min (>90) 04/15/18 18:50 Est GFR (Non-Af Amer) > 60.0 ml/min 04/15/18 18:50 BUN/Creatinine Ratio 21.4 04/15/18 18:50 Glucose 110 mg/dL (70-105) H 04/15/18 18:50 POC Glucose 147 MG/DL (70 - 105) H 04/29/18 21:56 Hemoglobin A1c % 6.3 % (4.0-6.0) H 04/15/18 18:50 Calcium 9.0 mg/dL (8.6-10.3) 04/15/18 18:50 Total Bilirubin 0.2 mg/dL (0.3-1.0) L 04/15/18 18:50 AST 11 U/L (13-39) L 04/15/18 18:50 ALT 12 U/L (7-52) 04/15/18 18:50 Alkaline Phosphatase 97 U/L (34-104) 04/15/18 18:50 Total Protein 6.4 gm/dL (6.0-8.3) 04/15/18 18:50 Albumin 3.7 gm/dL (4.2-5.5) L 04/15/18 18:50 Globulin 2.7 gm/dL 04/15/18 18:50 Albumin/Globulin Ratio 1.4 (1.0-1.8) 04/15/18 18:50 Triglycerides 197 mg/dL (<150) H 04/15/18 18:50 Cholesterol 175 mg/dL (<200) 04/15/18 18:50 LDL Cholesterol Direct 120 mg/dL (75-193) 04/15/18 18:50 HDL Cholesterol 40 mg/dL (23-92) 04/15/18 18:50 Vitamin B12 486 pg/mL (232-1245) 04/18/18 08:20 TSH 0.96 uIU/ml (0.34-5.60) 04/15/18 18:50 Urine Source CLEAN C 04/15/18 19:00 Urine Color YELLOW 04/15/18 19:00 Urine Clarity CLEAR (CLEAR) 04/15/18 19:00 Urine pH 6.5 (4.6 - 8.0) 04/15/18 19:00 Ur Specific [place] 1.015 (1.005-1.030) 04/15/18 19:00 Urine Protein NEGATIVE mg/dL (NEGATIVE) 04/15/18 19:00 Urine Glucose (UA) NEGATIVE mg/dL (NEGATIVE) 04/15/18 19:00 Urine Ketones NEGATIVE mg/dL (NEGATIVE) 04/15/18 19:00 Urine Blood NEGATIVE (NEGATIVE) 04/15/18 19:00 Urine Nitrate NEGATIVE (NEGATIVE) 04/15/18 19:00 Urine Bilirubin NEGATIVE (NEGATIVE) 04/15/18 19:00 Urine Urobilinogen 0.2 E.U./dL (0.2 - 1.0) 04/15/18 19:00 Ur Leukocyte Esterase NEGATIVE (NEGATIVE) 04/15/18 19:00 Urine RBC NONE SEEN /hpf (0-5) 04/15/18 19:00 Urine WBC 0-2 /hpf (0-5) 04/15/18 19:00 Ur Epithelial Cells OCCASIONAL /lpf (FEW) 04/15/18 19:00 Urine Bacteria OCCASIONAL /hpf (NONE SEEN) 04/15/18 19:00 Salicylates < 25.0 mg/L (30.0-100.0) L 04/15/18 18:50 Urine Opiates Screen NEGATIVE (NEGATIVE) 04/15/18 19:00 Urine Methadone Screen NEGATIVE (NEGATIVE) 04/15/18 19:00 Acetaminophen < 10.0 ug/mL (10.0-30.0) L 04/15/18 18:50 Ur Barbiturates Screen NEGATIVE (NEGATIVE) 04/15/18 19:00 Ur Tricyclics Screen NEGATIVE (NEGATIVE) 04/15/18 19:00 Ur Phencyclidine Scrn NEGATIVE (NEGATIVE) 04/15/18 19:00 Amphetamines Screen NEGATIVE (NEGATIVE) 04/15/18 19:00 U Methamphetamines Scrn NEGATIVE (NEGATIVE) 04/15/18 19:00 U Benzodiazepines Scrn POSITIVE (NEGATIVE) H 04/15/18 19:00 U Cocaine Metab Screen NEGATIVE (NEGATIVE) 04/15/18 19:00 U Cannabinoids Screen NEGATIVE (NEGATIVE) 04/15/18 19:00 Ethyl Alcohol < 10 mg/dL (0-10) 04/15/18 18:50 RPR NONREACTIVE (NONREACTIVE) 04/15/18 18:50 HIV 1&2 Antibody Screen NEGATIVE (NEG) 04/18/18 08:20 - Physical Exam Vitals and I&O: Vital Signs Temp 97.5 F 05/01/18 14:00 Pulse 94 05/01/18 14:00 Resp 20 05/01/18 14:00 BP 124/75 05/01/18 14:00 Pulse Ox 97 05/01/18 14:00 Intake & Output 04/30/18 05/01/18 05/01/18 18:59 06:59 18:59 Intake Total 1200 240 Output Total 2 Balance 1200 238 Weight (lbs) 111.13 kg Intake: Oral 1200 240 Output: Stool 1 Urine/Stool Mix 1 Other: # Voids 4 3 # Bowel Movements 1 0 Weight Source Bedscale Active Medications: Current Medications Acetaminophen (Tylenol 650mg/20.3ml Suspension) 650 mg GT Q6HR PRN PRN Reason: MILD PAIN OR TEMP >100.5 Stop: 06/14/18 22:28 Last Admin: 04/25/18 23:24 Dose: 650 mg Albuterol Sulfate (Albuterol 2.5mg/3ml Neb Ud) 2.5 mg HHN BIDRT PRN PRN Reason: Wheezing Stop: 06/16/18 17:55 Last Admin: 04/19/18 07:00 Dose: 2.5 mg Ascorbic Acid (Vitamin C) 500 mg GT DAILY WIN[facility]RED Stop: 06/15/18 08:59 Last Admin: 05/01/18 09:53 Dose: 500 mg Aspirin (Aspirin Chewable) 81 mg GT DAILY [facility]RED Stop: 06/15/18 08:59 Last Admin: 05/01/18 09:53 Dose: 81 mg Bisacodyl (Dulcolax 10 Mg Supp) 10 mg RC DAILY PRN PRN Reason: IF MOM INEFFECTIVE Stop: 06/14/18 22:28 Calamine/Phenol (Calmoseptine) 1 appl TP BID WINIFRED Stop: 06/25/18 16:59 Last Admin: 05/01/18 09:30 Dose: 1 appl Ferrous Sulfate (Iron) 300 mg PO DAILY WINIFRED Stop: 06/15/18 08:59 Last Admin: 05/01/18 09:52 Dose: 300 mg Lorazepam (Ativan) 1 mg GT Q4HR PRN; Protocol PRN Reason: Anxiety Stop: 05/15/18 21:44 Last Admin: 05/01/18 14:27 Dose: 1 mg Magnesium Hydroxide (Milk Of Magnesia) 30 ml GT HS PRN PRN Reason: Constipation Stop: 06/14/18 22:28 Last Admin: 04/23/18 19:50 Dose: 30 ml Midodrine (Proamatine) 5 mg GT TID [facility] Stop: 06/15/18 08:59 Last Admin: 05/01/18 09:53 Dose: 5 mg Ondansetron HCl (Zofran Odt) 4 mg PO Q6H PRN PRN Reason: Nausea / Vomiting Stop: 06/16/18 17:52 Pantoprazole Sodium (Protonix) 40 mg GT QDAC [facility] Stop: 06/15/18 07:29 Last Admin: 05/01/18 06:33 Dose: 40 mg Pioglitazone HCl (Actos) 15 mg GT DAILY [facility] Stop: 06/15/18 08:59 Last Admin: 05/01/18 09:53 Dose: 15 mg Quetiapine Fumarate (Seroquel) 75 mg PO TID [facility]; Protocol Stop: 06/19/18 08:59 Last Admin: 05/01/18 09:53 Dose: 75 mg Senna (Senna) 8.6 mg GT DAILY [facility] Stop: 06/15/18 08:59 Last Admin: 05/01/18 09:53 Dose: 8.6 mg Sodium Phosphate (Fleet Enema) 135 ml RC Q48H PRN PRN Reason: IF DULCOLAX INEFFECTIVE Stop: 06/14/18 22:28 Topiramate (Topamax) 150 mg GT DAILY [facility] Stop: 06/19/18 08:59 Last Admin: 05/01/18 09:53 Dose: 150 mg Zolpidem Tartrate (Ambien) 5 mg GT HS PRN PRN Reason: Insomnia Stop: 06/14/18 21:44 Last Admin: 04/29/18 21:06 Dose: 5 mg General: Alert, No acute distress HEENT: Atraumatic, PERRLA, EOMI Neck: Supple Cardiovascular: Regular rate Lungs: Clear to auscultation Abdomen: Bowel sounds Assessment/Plan - Problem List Patient Problems: All Active Problems AGGRESSIVE BEHAVIOR TOWARD STAFF (Acute) - Assessment Assessment: psychotic - Plan Plan: cpm will monitor Nutritional Asmnt/Malnutr-PDOC - Dietary Evaluation Malnutrition Findings (Please click <Entered> for more info): Nutritional Asmnt/Malnutrition Start: 04/16/18 14: 24 Text: Status: Complete Freq: Protocol: Document 04/16/18 14:24 [email or web address] (Rec: 04/16/18 14:42 [email or web address]) Nutritional Asmnt/Malnutrition Patient General Information Nutritional Screening High Risk Diagnosis psychosis Pertinent Medical Hx/Surgical Hx DM, CVA/TIA, seizures, dysphagi, s/p PNA, PEG/Gtube, left frontal craniotomy Subjective Information Pt admited with Gtube noted. Pt seen sleeping soundly at time of visit. Spoke with RN, RN stated bolus TF was discontinued since pt is able to tolerate oral diet and ate very well, 100% of breakfast today. Gtube only for medications. Current Diet Order/ Nutrition Support pureed, nectar thick Pertinent Medications vit C, Iron, protonix, seroquel, kcl, senna Pertinent Labs 04/15 Glu 110, abl 3.7, triglycerides Nutritional Hx/Data Height 1.75 m Height (Calculated Centimeters) 175.3 Current Weight (lbs) 111.13 kg Weight (Calculated Kilograms) 111.1 Weight (Calculated Grams) 698935.1 [place] Body Weight 160 Body Mass Index (BMI) 36.1 Weight Status Overweight GI Symptoms GI Symptoms None Last BM none Difficult in: None Skin Integrity/Comment: dryness Current %PO Good (75-100%) Estimated Nutritional Goals BEE in Kcals: Adj wt of IBW Calories/Kcals/Kg 25-30 Kcals Calculated [id number] Protein: Adj wt of IBW Protein g/k Protein Calculated 82 Fluid: ml 2049-2460ml (1ml/kcal) Nutritional Problem No current Nutrition Prob Problem N/A Malnutrition Alert Is there a minimum of two criteria No selected? Query Text:Check all the applicable criteria. A minimum of two criteria are recommended for diagnosis of either severe or non-severe malnutrition. Malnutrition Related to Morbid Obesity Malnutrition related to morbid obesity No Intervention/Recommendation Comments 1. Continue with pureed nectar thick diet as ordered. 2. Monitor PO intake, wt, labs and skin integrity 3. F/U as low risk in 7 days, 04/23, PO check 04/19 Expected Outcomes/Goals Expected Outcomes/Goals 1. PO intake to meet at least 75% of nutritional needs. 2. Wt stability, skin to remain intact, labs to approach WNL.
[2018-05-02] MEDS ORDERED: Haloperidol Lactate 5 mg/mL 1mL Vial ONE (06:15)
[2018-05-02] MEDS ORDERED: Haloperidol Lactate 5 mg/mL 1mL Vial IM ONE (06:30)
[2018-05-02] MEDS: Ferrous Sulfate 300 MG/5 ML UDC PO SCH (09:11)
[2018-05-02] MEDS: Aspirin 81mg Chewable Tab GT SCH (09:12)
[2018-05-02] MEDS: Pantoprazole 40 mg/Packet GT SCH (09:29)
[2018-05-02] MEDS: Menthol/Zinc Oxide Oint 113gm Tube TP SCH ×2 (09:29→17:42)
--- NOTE | 2018-05-02 16:21 | General Progress Note ---
Subjective - Review of Systems Subjective: Patient remains confused, and agitated at times Objective - Results Result Diagrams: 04/19/18 11:00 04/15/18 18:50 Recent Labs: Laboratory Last Values WBC 9.5 Th/cmm (4.8-10.8) 04/19/18 11:00 RBC 4.50 Mil/cmm (4.30-5.70) 04/19/18 11:00 Hgb 13.0 gm/dL (12-16) 04/19/18 11:00 Hct 38.9 % (41.0-60) L 04/19/18 11:00 MCV 86.5 fl (80-99) 04/19/18 11:00 MCH 28.9 pg (26.0-30.0) 04/19/18 11:00 MCHC Differential 33.4 pg (28.0-36.0) 04/19/18 11:00 RDW 15.5 % (11.5-20.0) 04/19/18 11:00 Plt Count 325 Th/cmm (150-400) 04/19/18 11:00 MPV 6.9 fl 04/19/18 11:00 Neutrophils % 71.8 % (40.0-80.0) 04/19/18 11:00 Lymphocytes % 18.1 % (20.0-50.0) L 04/19/18 11:00 Monocytes % 7.0 % (2.0-10.0) 04/19/18 11:00 Eosinophils % 2.7 % (0.0-5.0) 04/19/18 11:00 Basophils % 0.4 % (0.0-2.0) 04/19/18 11:00 Sodium 137 mEq/L (136-145) 04/15/18 18:50 Potassium 4.1 mEq/L (3.5-5.1) 04/15/18 18:50 Chloride 104 mEq/L (98-107) 04/15/18 18:50 Carbon Dioxide 25.2 mEq/L (21.0-31.0) 04/15/18 18:50 Anion Gap 11.9 (7.0-16.0) 04/15/18 18:50 BUN 15 mg/dL (7-25) 04/15/18 18:50 Creatinine 0.7 mg/dL (0.7-1.3) 04/15/18 18:50 Est GFR ( Amer) > 60.0 ml/min (>90) 04/15/18 18:50 Est GFR (Non-Af Amer) > 60.0 ml/min 04/15/18 18:50 BUN/Creatinine Ratio 21.4 04/15/18 18:50 Glucose 110 mg/dL (70-105) H 04/15/18 18:50 POC Glucose 147 MG/DL (70 - 105) H 04/29/18 21:56 Hemoglobin A1c % 6.3 % (4.0-6.0) H 04/15/18 18:50 Calcium 9.0 mg/dL (8.6-10.3) 04/15/18 18:50 Total Bilirubin 0.2 mg/dL (0.3-1.0) L 04/15/18 18:50 AST 11 U/L (13-39) L 04/15/18 18:50 ALT 12 U/L (7-52) 04/15/18 18:50 Alkaline Phosphatase 97 U/L (34-104) 04/15/18 18:50 Total Protein 6.4 gm/dL (6.0-8.3) 04/15/18 18:50 Albumin 3.7 gm/dL (4.2-5.5) L 04/15/18 18:50 Globulin 2.7 gm/dL 04/15/18 18:50 Albumin/Globulin Ratio 1.4 (1.0-1.8) 04/15/18 18:50 Triglycerides 197 mg/dL (<150) H 04/15/18 18:50 Cholesterol 175 mg/dL (<200) 04/15/18 18:50 LDL Cholesterol Direct 120 mg/dL (75-193) 04/15/18 18:50 HDL Cholesterol 40 mg/dL (23-92) 04/15/18 18:50 Vitamin B12 486 pg/mL (232-1245) 04/18/18 08:20 TSH 0.96 uIU/ml (0.34-5.60) 04/15/18 18:50 Urine Source CLEAN C 04/15/18 19:00 Urine Color YELLOW 04/15/18 19:00 Urine Clarity CLEAR (CLEAR) 04/15/18 19:00 Urine pH 6.5 (4.6 - 8.0) 04/15/18 19:00 Ur Specific [place] 1.015 (1.005-1.030) 04/15/18 19:00 Urine Protein NEGATIVE mg/dL (NEGATIVE) 04/15/18 19:00 Urine Glucose (UA) NEGATIVE mg/dL (NEGATIVE) 04/15/18 19:00 Urine Ketones NEGATIVE mg/dL (NEGATIVE) 04/15/18 19:00 Urine Blood NEGATIVE (NEGATIVE) 04/15/18 19:00 Urine Nitrate NEGATIVE (NEGATIVE) 04/15/18 19:00 Urine Bilirubin NEGATIVE (NEGATIVE) 04/15/18 19:00 Urine Urobilinogen 0.2 E.U./dL (0.2 - 1.0) 04/15/18 19:00 Ur Leukocyte Esterase NEGATIVE (NEGATIVE) 04/15/18 19:00 Urine RBC NONE SEEN /hpf (0-5) 04/15/18 19:00 Urine WBC 0-2 /hpf (0-5) 04/15/18 19:00 Ur Epithelial Cells OCCASIONAL /lpf (FEW) 04/15/18 19:00 Urine Bacteria OCCASIONAL /hpf (NONE SEEN) 04/15/18 19:00 Salicylates < 25.0 mg/L (30.0-100.0) L 04/15/18 18:50 Urine Opiates Screen NEGATIVE (NEGATIVE) 04/15/18 19:00 Urine Methadone Screen NEGATIVE (NEGATIVE) 04/15/18 19:00 Acetaminophen < 10.0 ug/mL (10.0-30.0) L 04/15/18 18:50 Ur Barbiturates Screen NEGATIVE (NEGATIVE) 04/15/18 19:00 Ur Tricyclics Screen NEGATIVE (NEGATIVE) 04/15/18 19:00 Ur Phencyclidine Scrn NEGATIVE (NEGATIVE) 04/15/18 19:00 Amphetamines Screen NEGATIVE (NEGATIVE) 04/15/18 19:00 U Methamphetamines Scrn NEGATIVE (NEGATIVE) 04/15/18 19:00 U Benzodiazepines Scrn POSITIVE (NEGATIVE) H 04/15/18 19:00 U Cocaine Metab Screen NEGATIVE (NEGATIVE) 04/15/18 19:00 U Cannabinoids Screen NEGATIVE (NEGATIVE) 04/15/18 19:00 Ethyl Alcohol < 10 mg/dL (0-10) 04/15/18 18:50 RPR NONREACTIVE (NONREACTIVE) 04/15/18 18:50 HIV 1&2 Antibody Screen NEGATIVE (NEG) 04/18/18 08:20 - Physical Exam Vitals and I&O: Vital Signs Temp 96.5 F 05/02/18 15:13 Pulse 92 05/02/18 15:13 Resp 20 05/02/18 15:13 BP 147/75 05/02/18 15:13 Pulse Ox 95 05/02/18 15:13 Intake & Output 05/01/18 05/02/18 05/02/18 18:59 06:59 18:59 Intake Total 1100 Balance 1100 Intake: Oral 1100 Other: # Voids 3 # Bowel Movements 1 Active Medications: Current Medications Acetaminophen (Tylenol 650mg/20.3ml Suspension) 650 mg GT Q6HR PRN PRN Reason: MILD PAIN OR TEMP >100.5 Stop: 06/14/18 22:28 Last Admin: 04/25/18 23:24 Dose: 650 mg Albuterol Sulfate (Albuterol 2.5mg/3ml Neb Ud) 2.5 mg HHN BIDRT PRN PRN Reason: Wheezing Stop: 06/16/18 17:55 Last Admin: 04/19/18 07:00 Dose: 2.5 mg Ascorbic Acid (Vitamin C) 500 mg GT DAILY [facility] Stop: 06/15/18 08:59 Last Admin: 05/02/18 09:12 Dose: 500 mg Aspirin (Aspirin Chewable) 81 mg GT DAILY [facility] Stop: 06/15/18 08:59 Last Admin: 05/02/18 09:12 Dose: 81 mg Bisacodyl (Dulcolax 10 Mg Supp) 10 mg RC DAILY PRN PRN Reason: IF MOM INEFFECTIVE Stop: 06/14/18 22:28 Calamine/Phenol (Calmoseptine) 1 appl TP BID WINIFRED Stop: 06/25/18 16:59 Last Admin: 05/02/18 09:29 Dose: 1 appl Ferrous Sulfate (Iron) 300 mg PO DAILY WINIFRED Stop: 06/15/18 08:59 Last Admin: 05/02/18 09:11 Dose: 300 mg Lorazepam (Ativan) 1 mg GT Q4HR PRN; Protocol PRN Reason: Anxiety Stop: 05/15/18 21:44 Last Admin: 05/01/18 19:42 Dose: 1 mg Magnesium Hydroxide (Milk Of Magnesia) 30 ml GT HS PRN PRN Reason: Constipation Stop: 06/14/18 22:28 Last Admin: 04/23/18 19:50 Dose: 30 ml Midodrine (Proamatine) 5 mg GT TID [facility] Stop: 06/15/18 08:59 Last Admin: 05/02/18 14:35 Dose: 5 mg Ondansetron HCl (Zofran Odt) 4 mg PO Q6H PRN PRN Reason: Nausea / Vomiting Stop: 06/16/18 17:52 Pantoprazole Sodium (Protonix) 40 mg GT QDAC [facility] Stop: 06/15/18 07:29 Last Admin: 05/02/18 09:29 Dose: Not Given Pioglitazone HCl (Actos) 15 mg GT DAILY [facility] Stop: 06/15/18 08:59 Last Admin: 05/02/18 09:12 Dose: 15 mg Quetiapine Fumarate (Seroquel) 75 mg PO TID [facility]; Protocol Stop: 06/19/18 08:59 Last Admin: 05/02/18 14:35 Dose: 75 mg Senna (Senna) 8.6 mg GT DAILY [facility] Stop: 06/15/18 08:59 Last Admin: 05/02/18 09:12 Dose: 8.6 mg Sodium Phosphate (Fleet Enema) 135 ml RC Q48H PRN PRN Reason: IF DULCOLAX INEFFECTIVE Stop: 06/14/18 22:28 Topiramate (Topamax) 150 mg GT DAILY [facility] Stop: 06/19/18 08:59 Last Admin: 05/02/18 09:11 Dose: 150 mg Zolpidem Tartrate (Ambien) 5 mg GT HS PRN PRN Reason: Insomnia Stop: 06/14/18 21:44 Last Admin: 05/01/18 21:12 Dose: 5 mg General: Alert, No acute distress HEENT: Atraumatic, PERRLA, EOMI Neck: Supple Cardiovascular: Regular rate Lungs: Clear to auscultation Abdomen: Bowel sounds Assessment/Plan - Problem List Patient Problems: All Active Problems AGGRESSIVE BEHAVIOR TOWARD STAFF (Acute) - Assessment Assessment: psychotic - Plan Plan: cpm will monitor Nutritional Asmnt/Malnutr-PDOC - Dietary Evaluation Malnutrition Findings (Please click <Entered> for more info): Nutritional Asmnt/Malnutrition Start: 04/16/18 14: 24 Text: Status: Complete Freq: Protocol: Document 04/16/18 14:24 ANGELLA (Rec: 04/16/18 14:42 [email or web address]) Nutritional Asmnt/Malnutrition Patient General Information Nutritional Screening High Risk Diagnosis psychosis Pertinent Medical Hx/Surgical Hx DM, CVA/TIA, seizures, dysphagi, s/p PNA, PEG/Gtube, left frontal craniotomy Subjective Information Pt admited with Gtube noted. Pt seen sleeping soundly at time of visit. Spoke with RN, RN stated bolus TF was discontinued since pt is able to tolerate oral diet and ate very well, 100% of breakfast today. Gtube only for medications. Current Diet Order/ Nutrition Support pureed, nectar thick Pertinent Medications vit C, Iron, protonix, seroquel, kcl, senna Pertinent Labs 04/15 Glu 110, abl 3.7, triglycerides Nutritional Hx/Data Height 1.75 m Height (Calculated Centimeters) 175.3 Current Weight (lbs) 111.13 kg Weight (Calculated Kilograms) 111.1 Weight (Calculated Grams) 272668.1 [place] Body Weight 160 Body Mass Index (BMI) 36.1 Weight Status Overweight GI Symptoms GI Symptoms None Last BM none Difficult in: None Skin Integrity/Comment: dryness Current %PO Good (75-100%) Estimated Nutritional Goals BEE in Kcals: Adj wt of IBW Calories/Kcals/Kg 25-30 Kcals Calculated 0011-8502 Protein: Adj wt of IBW Protein g/k Protein Calculated 82 Fluid: ml 0-2460ml (1ml/kcal) Nutritional Problem No current Nutrition Prob Problem N/A Malnutrition Alert Is there a minimum of two criteria No selected? Query Text:Check all the applicable criteria. A minimum of two criteria are recommended for diagnosis of either severe or non-severe malnutrition. Malnutrition Related to Morbid Obesity Malnutrition related to morbid obesity No Intervention/Recommendation Comments 1. Continue with pureed nectar thick diet as ordered. 2. Monitor PO intake, wt, labs and skin integrity 3. F/U as low risk in 7 days, 04/23, PO check 04/19 Expected Outcomes/Goals Expected Outcomes/Goals 1. PO intake to meet at least 75% of nutritional needs. 2. Wt stability, skin to remain intact, labs to approach WNL.
--- NOTE | 2018-05-04 15:21 | Discharge Summary ---
DATE OF DISCHARGE: 05/02/2018 AGE: 57. SEX: Male. PHYSICIAN: Murali. FINAL DIAGNOSES: PRIMARY DIAGNOSES: Schizoaffective disorder, bipolar type, severe, with psychotic features. REASON FOR HOSPITALIZATION: The patient was admitted to the hospital because of increased agitation and irritability and aggressive behavior in the correction. HOSPITAL COURSE: The patient continued to be in angry and in irritable mood. The patient also was easily agitated and irritable. The patient also was not able to follow staff directions. Also, was restless and argumentative with the staff and paranoid. The patient was started on Topamax and the dose was adjusted to 150 mg every day and also Seroquel and the dose adjusted to 75 mg 3 times a day. Gradually, the patient's affect was brighter. The patient was less irritable and less agitated. It was easier to redirect him. The patient was not as aggressive and he was compliant with taking his medications and he was discharged from the hospital. Physical exam of the patient showed no major medical problems while in the hospital. AFTER DISCHARGE PLANS: The patient discharged from the hospital and returned to [facility] with plans for outpatient treatment there. EXPECTED OUTCOME AFTER DISCHARGE: Fair if the patient continued to take his psychotropic medications and follow up with discharge plans. [facility]# [id number]
--- NOTE | 2018-05-04 21:55 | Progress Notes ---
DATE: 05/01/2018 Chart was reviewed and the patient interviewed, and discussed the patient's condition with the staff 05/01/2018. The patient was actually calmer and seems to be less irritable. Discharged the patient to [facility] on 05/01/2018, but it seems that case monitor was not able to complete the discharge on that date because of being overwhelmed according to the staff and had many discharges on that date and discharge was rescinded without my knowledge on the date. I am dictating this report instead of the dictating a discharge summary for the patient. Again, the patient was supposed to discharge to [facility] on that date. JOB# [id number]
== END 2018-05-02 18:30 | DRG 885 ==
LOC: ER 18:20 → GERO 20:29
PROVIDERS: ADMIT Psychiatry & Neurology Psychiatry; ATTEND Psychiatry & Neurology Psychiatry
DX: F25.0 Schizoaffective disorder, bipolar type (principal); Z93.1 Gastrostomy status; E11.9 Type 2 diabetes mellitus without complications; I50.9 Heart failure, unspecified; D72.829 Elevated white blood cell count, unspecified; F29 Unspecified psychosis not due to a substance or known physiological condition; R13.10 Dysphagia, unspecified; F17.200 Nicotine dependence, unspecified, uncomplicated; G40.909 Epilepsy, unspecified, not intractable, without status epilepticus; Z87.01 Personal history of pneumonia (recurrent); Z86.73 Personal history of transient ischemic attack (TIA), and cerebral infarction without residual deficits; Z68.36 Body mass index [BMI] 36.0-36.9, adult
CPT/HCPCS: 36415-UA; 71045-TC; 76870-TC; 80053-TC; 80061-TC; 80307; 80320-TC; 80329-TC; 81001-TC; 82607-90; 82948-90; 83036-90; 84443-TC; 85025-TC; 86592-TC; 86703-TC; 87086-90; 93005; 94760; J1200; J1630; J2060; J7613; Q0162; Z7610

== ENCOUNTER 2018-06-01 02:38 | Inpatient (IN) | payer MEDICARE, MEDICAID ==
[2018-06-01 03:20] LABS: % BASOPHILS 0.9 % (0.0-2.0); % EOSINOPHILS 6.9 % (0.0-5.0); % LYMPHOCYTES 15.7 % (20.0-50.0); % MONOCYTES 7.4 % (2.0-10.0); % NEUTROPHILS 69.1 % (40.0-80.0); BASOPHILE ABSOLUTE 0.1 Th/cumm (0-0.2); EOSINOPHILE ABSOLUTE 0.8 Th/cmm (0.1-0.4); HEMATOCRIT 37.8 % (41.0-60); HEMOGLOBIN 12.3 gm/dL (12-16); LYMPHOCYTE ABSOLUTE 1.7 Th/cmm (1.5-3.0); MEAN CORPUSCULAR HEMOGLOBIN 28.5 pg (26.0-30.0); MEAN CORPUSCULAR HGB CONC 32.4 pg (28.0-36.0); MEAN PLATELET VOLUME 7.2 fl; MONOCYTE ABSOLUTE 0.8 Th/cmm (0.3-1.0); NEUTROPHILE ABSOLUTE 7.7 Th/cmm (1.8-8.0); PLATELET COUNT 315 Th/cmm (150-400); RED CELL DISTRIBUTION WIDTH 15.1 % (11.5-20.0); WHITE BLOOD COUNT 11.1 Th/cmm (4.8-10.8)
[2018-06-01 03:36] LABS: ANION GAP 11.6 (7.0-16.0); BUN - UREA NITROGEN 14 mg/dL (7-25); CARBON DIOXIDE 23.3 mEq/L (21.0-31.0); CHLORIDE 108 mEq/L (98-107); CREATININE - SERUM 0.8 mg/dL (0.7-1.3); GFR AFRICAN-AMERICAN > 60.0 ml/min (>90); GFR NON AFRICAN-AMERICAN > 60.0 ml/min; GLUCOSE 115 mg/dL (70-105); POTASSIUM SERUM 3.9 mEq/L (3.5-5.1); SODIUM SERUM 139 mEq/L (136-145)
--- NOTE | 2018-06-01 03:45 | ED Physician Chart ---
ED Chief Complaint/HPI - Patient Information Date Seen:: 06/01/18 Time Seen:: 03:38 Chief Complaint:: agitation History of Present Illness:: 58 yr old male from shelter with agitation aggressive behaviour toward staff pt verbal but not easy to understand Allergies:: Allergies Allergy/AdvReac Type Severity Reaction Status Date / Time No Known Allergies Allergy Verified 04/15/18 18:28 Vitals:: Vital Signs - 8 hr 06/01/18 06/01/18 02:42 03:00 Temp 97.5 F 98.2 F HR 87 88 RR 16 17 BP 122/81 146/71 O2 Sat % 96 95 ED Review of Systems - Review of Systems General/Constitutional: No fever Skin: No skin lesions Eyes: No loss of vision ENT: No earache Neck: No neck pain Cardio Vascular: No chest pain Pulmonary: No SOB GI: No vomiting G/U: No hematuria Musculoskeletal: No bone or joint pain Endocrine: No polyuria Psychiatric: Prior psych history Allergic/Immuno: No urticaria ( CELLULITIS,DM,GERD SEIZURESANXIETY DYSPHAGIA ANXIETY ) Neurological: No seizure ED Past Medical History - Past Medical History Past Medical History: DM, Seizures, Cataract (PSYCH) Family Medical History - Family Member Mother History Unknown: Yes Ethnicity: Unknown Living Status: Unknown Hx Family Cancer: (unknown) Hx Family Coronary Artery Disease: (unknown) Hx Family Congestive Heart Failure: (unknown) Hx Family Hypertension: (unknown) Hx Family Stroke: (unknown) Hx Family Diabetes: (unknown) Hx Family Seizures: (unknown) Hx Family Dementia: (unknown) Hx Family AIDS: (unknown) Hx Family COPD: (unknown) Hx Family Hepatitis: (unknown) Hx Family Psychiatric Problems: (unknown) Hx Family Tuberculosis: (unknown) ED Physical Exam - Physical Examination General/Constitutional: Alert Head: Atraumatic Eyes: Lids, conjuctiva normal ENMT: External ears, nose nl Neck: Nontender Respiratory: Nl effort/Exclusion Cardio Vascular: RRR GI: No tenderness/rebounding/guarding Extremities: normal strength in all extremities Neuro/Psych: No focal deficits ED Labs/Radiology/EKG Results - Lab Results Results: Laboratory Tests 06/01/18 03:10 WBC 11.1 H RBC 4.30 Hgb 12.3 Hct 37.8 L MCV 88.0 MCH 28.5 MCHC Differential 32.4 RDW 15.1 Plt Count 315 MPV 7.2 Neutrophils % 69.1 Lymphocytes % 15.7 L Monocytes % 7.4 Eosinophils % 6.9 H Basophils % 0.9 ED Assessment - Assessment General Assessment: AGITATION PSYCHOSIS CELLULITIS ED Septic Shock - . Is Septic Shock (SBP<90, OR Lactate>4 mmol\L) present?: No - <6hrs of presentation: Vital Signs: Vital Signs - 8 hr 06/01/18 06/01/18 02:42 03:00 Temp 97.5 F 98.2 F HR 87 88 RR 16 17 BP 122/81 146/71 O2 Sat % 96 95
[2018-06-01] MEDS ORDERED: Haloperidol Lactate 5 mg/mL 1mL Vial IM ONE (06:56)
[2018-06-01 07:10] VITALS: BP 122/81
[2018-06-01] MEDS: D5-0.45NS 1,000 ML IV SCH (07:50)
[2018-06-01] MEDS ORDERED: Pneumococcal Vaccine 0.5 mL Vial IM ONE (08:17)
[2018-06-01] MEDS ORDERED: Magnesium Hydroxide (MOM) 30 mL UDC GT PRN (08:50)
[2018-06-01] MEDS ORDERED: Fleet Enema 135 mL RC PRN (08:50)
[2018-06-01] MEDS ORDERED: Acetaminophen 500 MG TAB PO PRN (08:50)
[2018-06-01] MEDS ORDERED: Non-Formulary Item 1 EA (Cranberry Fruit [Cranberry] 450 MG) GT SCH (09:00)
[2018-06-01] MEDS: Menthol/Zinc Oxide Oint 113gm Tube TP SCH ×2 (09:14→17:49)
[2018-06-01] MEDS: Ferrous Sulfate 300 MG/5 ML UDC PO SCH (09:14)
[2018-06-01] MEDS: Aspirin 81mg Chewable Tab GT SCH (09:14)
[2018-06-01] MEDS: Potassium Chloride Elixir 20 mEq /15 mL UDC GT SCH (09:15)
--- NOTE | 2018-06-01 09:41 | Diagnostic Imaging Report ---
Portable chest x-ray History: Shortness of breath Allowing for portable technique the heart size is normal. No focal pulmonary parenchymal processes. No hilar or mediastinal abnormalities. Impression: No acute abnormalities.
[2018-06-01] MEDS: INSULIN ASPART SLIDING SCALE 100 UNITS/ML UNIT SUBQ SCH ×2 (12:20→18:42)
--- NOTE | 2018-06-01 13:07 | History & Physical ---
ADMIT DATE: 06/01/2018 CHIEF COMPLAINT: Agitation and bilateral lower extremity redness. HISTORY OF PRESENT ILLNESS: This is a 58-year-old male who was admitted from snf facility through the Emergency Room of [facility] due to increase in agitation and redness of bilateral lower extremities. REVIEW OF SYSTEMS: GENERAL: This is a 58-year-old male that appears as stated. No fever. No weakness. HEENT: Head: No headache. No dizziness. Eyes: No eye pain. No blurring of vision. NECK: No neck pain. No nuchal rigidity. CHEST: No chest pain or palpitation. PULMONARY: No coughing. No shortness of breath. GASTROINTESTINAL: No abdominal pain, no constipation, no diarrhea. MUSCULOSKELETAL: No joint pain. No muscle pain. SOCIAL HISTORY: The patient lives in a snf facility prior to hospitalization. PAST MEDICAL HISTORY: Includes osteoarthritis, iron deficiency anemia, gastroesophageal reflux disease, diabetes. PSYCHIATRIC HISTORY: Includes unknown psychosis. PAST SURGICAL HISTORY: Unremarkable. FAMILY HISTORY: Unremarkable. PHYSICAL EXAMINATION: VITAL SIGNS: Temperature 97.2, heart rate of 82, blood pressure 146/83, respiration 22, 97% on room air. GENERAL: This is a 58-year-old male that appears as stated and in no acute distress, but poor historian due to current medical condition. HEENT: Head is atraumatic, normocephalic. Eyes: Bilateral conjunctivae are clear. Bilateral pupils are equally round and reactive. NECK: Supple. No JVD. CARDIOVASCULAR: S1 and S2, without murmur. PULMONARY: Clear to auscultation. GASTROINTESTINAL: Soft and nontender without guarding. Positive bowel sounds. MUSCULOSKELETAL: No clubbing. No cyanosis noted. ASSESSMENT: 1. Psychosis. 2. Diabetes. 3. Osteoarthritis. 4. Iron deficiency anemia. 5. Dysphagia. The patient currently has a gastrostomy tube in place. 6. Bilateral lower extremity cellulitis. PLAN: We will admit the patient to Med/Surg Unit. We will consult with ID doctor for antibiotic management. We will also get a consult for psychiatric evaluation. We are also going to get consultation for GI doctor. We will put the patient for the meantime on bilateral soft wrist restraints due to agitation and safety precautions. We will initiate lorazepam as needed. We will do medication reconciliation accordingly. Treatment plans were discussed with the patient's nurse. Treatment plans were discussed with Dr. Sanders. JOB# [id number]
--- NOTE | 2018-06-01 16:37 | Consultation ---
DATE OF CONSULTATION: 06/01/2018 ATTENDING PHYSICIAN: Dr. Tommy Virk. REASON FOR CONSULTATION: Dysphagia, cellulitis, and status post G-tube. HISTORY OF PRESENT ILLNESS: This is a 58-year-old male who is seen through the courtesy of Dr. Sanders. This patient has multiple medical problems including history of schizophrenia, history of psychosis, and the patient has been very uncooperative and the patient is very agitated and not answering any question. The patient previously had a G-tube, which has been used for feeding. The patient was admitted via the Emergency Room with bilateral cellulitis. The patient was started on IV antibiotics. GI consult is obtained for possible removal of the G-tube as they cannot transfer this patient to Psych Unit with the G-tube. The patient is unable to provide the history, so most of the history is obtained by reviewing the records. PAST MEDICAL HISTORY: The patient has a history of psychosis, history of schizophrenia, history of GERD and history of dysphagia, status post G-tube. The patient is on multiple medications: Please see the list in the chart. ALLERGIES: The patient is not allergic to any medication. PHYSICAL EXAMINATION: GENERAL: The patient is slightly obese male who is responsive, but not giving any answer to the questions. VITAL SIGNS: Temperature is 98, respiratory rate is 18, blood pressure is 140/80, pulse is 82. HEENT: Head is normocephalic. Pupils are reactive to light. Conjunctivae are pink. No scleral icterus. Throat is clear. NECK: Supple. No JV distention, no mass. LUNGS: Revealed no rales or rhonchi. ABDOMEN: Soft. There is a G-tube in place. Bowel sounds are present. EXTREMITIES: The patient had a cellulitis of both the feet. IMPRESSION: 1. Cellulitis. 2. Status post G-tube. 3. History of psychosis and schizophrenia. RECOMMENDATION: For the time being, we will continue the feeding through the G-tube and will do the swallowing evaluation and if he passed the swallowing evaluation done, we will remove the G-tube, so that we can transfer this patient to Psych Unit. Thank you for the consult, Dr. Sanders. We will follow this patient with you. JOB# [id number]
[2018-06-01 18:47] LABS: URINE SOURCE RANDOM
--- NOTE | 2018-06-01 18:51 | Consultation ---
Consult Note - Consult Note Service Date: 06/01/18 Referring Physician: Cinthia Sanders Consult Note: PHYSICIAN Consultation Note: Date of Admission: 06/01/18 Purpose of Consultation: Cellulitis Chief Complaint: Patient JORDAN PABON was admitted to location Intensive Care Unit with CELLULITIS. History of Present Illness: 58-year-old male with a past medical history of psychosis, dementia recently admitted to at [facility] for swelling of the both lower extended worse on the left side with erythema. Patient was treated with antibiotic vancomycin IV and he did well. He was discharged from the [facility], in hospital yesterday. He was discharged on doxycycline by mouth twice a day for 7 days. He was brought in for agitation and aggressive behavior at nursing facility. Past Medical History: Psychosis, dementia, DM2, Seizures. Allergies Allergy/AdvReac Type Severity Reaction Status Date / Time No Known Allergies Allergy Verified 04/15/18 18:28 Vital Signs Temp 98 F 06/01/18 17:00 Pulse 86 06/01/18 17:00 Resp 18 06/01/18 17:00 BP 122/79 06/01/18 17:00 Pulse Ox 95 06/01/18 16:00 Intake & Output 05/31/18 06/01/18 06/01/18 18:59 06:59 18:59 Intake Total 50 Balance 50 Weight (lbs) 83.915 kg Intake: Intake, IV Amount 50 Piperacillin Sodium/ 50 Tazobact 3.375 gm In Sodium Chloride 0.9% 50 ml @ 100 mls/hr IV Q8H [facility] Rx#:[id number] Other: Weight Source Estimated Laboratory Results - last 24 hr 06/01/18 06/01/18 06/01/18 03:10 03:10 03:10 WBC 11.1 H RBC 4.30 Hgb 12.3 Hct 37.8 L MCV 88.0 MCH 28.5 MCHC Differential 32.4 RDW 15.1 Plt Count 315 MPV 7.2 Neutrophils % 69.1 Lymphocytes % 15.7 L Monocytes % 7.4 Eosinophils % 6.9 H Basophils % 0.9 Sodium 139 Potassium 3.9 Chloride 108 H Carbon Dioxide 23.3 Anion Gap 11.6 BUN 14 Creatinine 0.8 Est GFR ( Amer) > 60.0 Est GFR (Non-Af Amer) > 60.0 BUN/Creatinine Ratio 17.5 Glucose 115 H POC Glucose Calcium 9.0 Troponin I 0.01 06/01/18 06/01/18 06/01/18 05:45 12:12 17:05 WBC RBC Hgb Hct MCV MCH MCHC Differential RDW Plt Count MPV Neutrophils % Lymphocytes % Monocytes % Eosinophils % Basophils % Sodium Potassium Chloride Carbon Dioxide Anion Gap BUN Creatinine Est GFR ( Amer) Est GFR (Non-Af Amer) BUN/Creatinine Ratio Glucose POC Glucose 105 133 H 86 Calcium Troponin I Home Medication Medication Instructions Recorded Type Acetaminophen [Tylenol Extra 500 mg PO Q8HR PRN 04/15/18 History Strength] Acetylcysteine 600 mg GT BID 04/15/18 History [T-Chinjn-p-Cysteine] Cranberry Fruit [Cranberry] 450 mg GT DAILY 04/15/18 History Docusate Sodium [Colace] 100 mg GT BID 04/15/18 History Potassium Chloride Elixir 20 meq GT DAILY 04/15/18 History Acetaminophen [Tylenol 650 mg GT Q6HR PRN udc 05/02/18 Rx 650mg/20.3mL Suspension] Albuterol Nebulizer 2.5mg/3mL 2.5 mg HHN BIDRT PRN each 05/02/18 Rx [Albuterol Neb UD*] Ascorbic Acid [Vitamin C] 500 mg GT DAILY tab 05/02/18 Rx Aspirin [Aspirin Chewable] 81 mg GT DAILY ctb 05/02/18 Rx Bisacodyl [Dulcolax 10 Mg Supp] 10 mg RC DAILY PRN sup 05/02/18 Rx Ferrous Sulfate [Iron] 300 mg PO DAILY udc 05/02/18 Rx Fleet Enema 135 ml RC Q48H PRN btl 05/02/18 Rx Lorazepam [Ativan] 1 mg GT Q4HR PRN tab 05/02/18 Rx Magnesium Hydroxide [Milk of 30 ml GT HS PRN udc 05/02/18 Rx Magnesia] Menthol/Zinc Oxide [Calmoseptine] 1 appl TP BID appl 05/02/18 Rx Midodrine [Proamatine] 5 mg GT TID tab 05/02/18 Rx Ondansetron [Zofran Odt] 4 mg PO Q6H PRN odt 05/02/18 Rx Pantoprazole [Protonix] 40 mg GT QDAC pkt 05/02/18 Rx Pioglitazone HCl [Actos] 15 mg GT DAILY tab 05/02/18 Rx QUEtiapine Fumarate [SEROquel] 75 mg PO TID tab 05/02/18 Rx Sennosides A and B [Senna] 8.6 mg GT DAILY tab 05/02/18 Rx Topiramate [Topamax] 150 mg GT DAILY tab 05/02/18 Rx Zolpidem Tartrate [Ambien] 5 mg GT HS PRN tab 05/02/18 Rx Current Medications Generic Name Dose Route Start Last Admin Trade Name Freq PRN Reason Stop Dose Admin Acetaminophen 650 mg 06/01/18 08:50 Tylenol 650mg/20.3ml Suspension GT 07/31/18 08:49 Q6H PRN MILD PAIN OR TEMP >100.5 Acetaminophen 500 mg 06/01/18 08:50 Tylenol Extra Strength PO 07/31/18 08:49 Q8H PRN MOD/SEVERE PAIN Albuterol Sulfate 2.5 mg 06/01/18 08:50 Albuterol 2.5mg/3ml Neb Ud HHN 07/31/18 08:49 BIDRT PRN Wheezing Ascorbic Acid 500 mg 06/01/18 09:00 06/01/18 09:14 Vitamin C GT 07/31/18 08:59 Not Given DAILY WINIFRED Aspirin 81 mg 06/01/18 09:00 06/01/18 09:14 Aspirin Chewable GT 07/31/18 08:59 Not Given DAILY WINIFRED Bisacodyl 10 mg 06/01/18 08:50 Dulcolax 10 Mg Supp RC 07/31/18 08:49 DAILY PRN IF MOM INEFFECTIVE Calamine/Phenol 1 appl 06/01/18 09:00 06/01/18 17:49 Calmoseptine TP 07/31/18 08:59 1 appl BID WINIFRED Administration Docusate Sodium 100 mg 06/01/18 09:00 06/01/18 17:48 Colace PO 07/31/18 08:59 100 mg BID WINIFRED Administration Ferrous Sulfate 300 mg 06/01/18 09:00 06/01/18 09:14 Iron PO 07/31/18 08:59 Not Given DAILY WINIFRED Piperacillin Sod/Tazobactam 50 mls @ 100 mls/hr 06/01/18 08:00 06/01/18 17:55 Sod 3.375 gm/ Sodium Chloride IV 07/31/18 07:59 100 mls/hr Q8H WINIFRED Administration Dextrose/Sodium Chloride 1,000 mls @ 50 mls/hr 06/01/18 08:00 06/01/18 07:50 D5-0.45ns IV 07/31/18 07:59 50 mls/hr .Q20H WINIFRED Administration Insulin Aspart 0 units 06/01/18 12:00 06/01/18 18:42 Novolog Insulin Sliding Scale SUBQ 07/31/18 11:59 Not Given Q6HR WINIFRED Protocol Lorazepam 2 mg 06/01/18 09:36 06/01/18 17:48 Ativan IVP 07/31/18 09:35 2 mg Q4H PRN Administration Agitation Protocol Magnesium Hydroxide 30 ml 06/01/18 08:50 Milk Of Magnesia GT 07/31/18 08:49 HS PRN Constipation Midodrine 5 mg 06/01/18 09:00 06/01/18 14:00 Proamatine GT 07/31/18 08:59 Not Given TID [facility] Ondansetron HCl 4 mg 06/01/18 08:50 Zofran Odt PO 07/31/18 08:49 Q6H PRN Nausea / Vomiting Pantoprazole Sodium 40 mg 06/02/18 07:30 Protonix GT 08/01/18 07:29 QDAC [facility] Pioglitazone HCl 15 mg 06/01/18 09:00 06/01/18 09:15 Actos GT 07/31/18 08:59 Not Given DAILY [facility] Potassium Chloride 20 meq 06/01/18 09:00 06/01/18 09:15 Potassium Chloride Elixir GT 07/31/18 08:59 Not Given DAILY [facility] Quetiapine Fumarate 50 mg/ 75 mg 06/01/18 09:00 06/01/18 17:48 Quetiapine Fumarate 25 mg GT 07/31/18 08:59 75 mg TID WINIFRED Administration Senna 8.6 mg 06/01/18 09:00 06/01/18 09:15 Senna GT 07/31/18 08:59 Not Given DAILY [facility] Sodium Phosphate 135 ml 06/01/18 08:50 Fleet Enema RC 07/31/18 08:49 Q48H PRN IF DULCOLAX INEFFECTIVE Topiramate 150 mg 06/01/18 09:00 06/01/18 09:15 Topamax GT 07/31/18 08:59 Not Given DAILY WINIFRED Zolpidem Tartrate 5 mg 06/01/18 08:50 Ambien GT 07/31/18 08:49 HS PRN Insomnia Review of Systems: A 12 point ROS was reviewed with the pertinent positive and negatives noted in the HPI. Social History Smoking Status Unknown if ever smoked Drug Use No Alcohol Use No Physical Exam: General: Comfortable, not in acute distress. Sleeping at this time. HEENT: Head: Normocephalic. Oral cavity: Moist, pink tongue. Eyes: No pallor. No icterus. Pupil PERRLA. EOMI. Neck: Supple, no JVD, no carotid bruit. Cardio: S1 and S2 within normal limits regular rhythm no murmur no gallop. Respiratory: Vesicular breath sound. No crackles. No wheezing. Abdominal: Soft, nontender nondistended bowel sounds present. Genital/Urinary: Deferred. Extremities: No cyanosis, no clubbing, no edema. Neurological: Sleeping at this time. Assessment: 1. Aggressive behavior. 2. Cellulitis improving. 3. Dementia. 4. DM2. 5. Seizures. Plan: Will continue doxycycline. And discontinue Zosyn. Thank you, Dr. Sanders, for involving me in taking care of this patient Signed, Tejas Leigh M.D. [id number]
[2018-06-01 19:31] LABS: URINE BILIRUBIN NEGATIVE (NEGATIVE); URINE CLARITY CLEAR (CLEAR); URINE COLOR YELLOW; URINE GLUCOSE (UA) NEGATIVE (NEGATIVE); URINE KETONE NEGATIVE (NEGATIVE)
[2018-06-01 19:32] LABS: URINE BLOOD TRACE (NEGATIVE); URINE LEUKOCYTE ESTERASE NEGATIVE (NEGATIVE); URINE MICROSCOPIC INDICATED? YES; URINE NITRATE NEGATIVE (NEGATIVE); URINE PROTEIN NEGATIVE (NEGATIVE); URINE UROBILINOGEN 0.2 E.U./dL (0.2 - 1.0)
[2018-06-01 19:37] LABS: URINE RBC 0-2 /hpf (0-5); URINE WBC 0-2 /hpf (0-5)
[2018-06-01 19:38] LABS: URINE BACTERIA OCCASIONAL /hpf (NONE SEEN); URINE EPITHELIAL CELLS FEW /lpf (FEW)
[2018-06-01] MEDS: Albuterol Nebulizer 2.5mg/3mL HHN PRN (20:20)
--- NOTE | 2018-06-01 21:36 | Consultation ---
Consult Note - Consult Note Service Date: 06/01/18 Referring Physician: Cinthia Sanders Consult Note: PHYSICIAN Consultation Note: Date of Admission: 06/01/18 Purpose of Consultation: Cellulitis. Chief Complaint: Patient JORDAN PABON was admitted to location Intensive Care Unit with CELLULITIS. History of Present Illness: 58-year-old male with a past medical history of DM2, Seizure disorder, dysphagia , psychosis, dementia recently admitted to at [facility] for swelling of the both lower extended worse on the left side with erythema. Patient was treated with antibiotic vancomycin IV and he did well. He was discharged from the [facility] in hospital yesterday. He was discharged on doxycycline by mouth twice a day for 7 days. He was brought in for agitation and aggressive behavior at nursing facility. Past Medical History: psychosis, dementia, DM2, Seizure disorder, dysphagia. Allergies Allergy/AdvReac Type Severity Reaction Status Date / Time No Known Allergies Allergy Verified 04/15/18 18:28 Vital Signs Temp 97.8 F 06/01/18 20:00 Pulse 20 06/01/18 20:00 Resp 18 06/01/18 20:00 BP 112/83 06/01/18 20:00 Pulse Ox 94 06/01/18 20:00 Intake & Output 06/01/18 06/01/18 06/02/18 06:59 18:59 06:59 Intake Total 50 Balance 50 Weight (lbs) 83.915 kg 83.915 kg Intake: Intake, IV Amount 50 Piperacillin Sodium/ 50 Tazobact 3.375 gm In Sodium Chloride 0.9% 50 ml @ 100 mls/hr IV Q8H [facility] Rx#:[id number] Other: # Voids 2 # Bowel Movements 1 Weight Source Estimated Bedscale Laboratory Results - last 24 hr 06/01/18 06/01/18 06/01/18 03:10 03:10 03:10 WBC 11.1 H RBC 4.30 Hgb 12.3 Hct 37.8 L MCV 88.0 MCH 28.5 MCHC Differential 32.4 RDW 15.1 Plt Count 315 MPV 7.2 Neutrophils % 69.1 Lymphocytes % 15.7 L Monocytes % 7.4 Eosinophils % 6.9 H Basophils % 0.9 Sodium 139 Potassium 3.9 Chloride 108 H Carbon Dioxide 23.3 Anion Gap 11.6 BUN 14 Creatinine 0.8 Est GFR ( Amer) > 60.0 Est GFR (Non-Af Amer) > 60.0 BUN/Creatinine Ratio 17.5 Glucose 115 H POC Glucose Calcium 9.0 Troponin I 0.01 Urine Source Urine Color Urine Clarity Urine pH Ur Specific Corinne Urine Protein Urine Glucose (UA) Urine Ketones Urine Blood Urine Nitrate Urine Bilirubin Urine Urobilinogen Ur Leukocyte Esterase Urine RBC Urine WBC Ur Epithelial Cells Urine Bacteria 06/01/18 06/01/18 06/01/18 05:45 12:12 17:00 WBC RBC Hgb Hct MCV MCH MCHC Differential RDW Plt Count MPV Neutrophils % Lymphocytes % Monocytes % Eosinophils % Basophils % Sodium Potassium Chloride Carbon Dioxide Anion Gap BUN Creatinine Est GFR ( Amer) Est GFR (Non-Af Amer) BUN/Creatinine Ratio Glucose POC Glucose 105 133 H Calcium Troponin I Urine Source RANDOM Urine Color YELLOW Urine Clarity CLEAR Urine pH 7.0 Ur Specific Corinne 1.010 Urine Protein NEGATIVE Urine Glucose (UA) NEGATIVE Urine Ketones NEGATIVE Urine Blood TRACE Urine Nitrate NEGATIVE Urine Bilirubin NEGATIVE Urine Urobilinogen 0.2 Ur Leukocyte Esterase NEGATIVE Urine RBC 0-2 H Urine WBC 0-2 Ur Epithelial Cells FEW Urine Bacteria OCCASIONAL 06/01/18 17:05 WBC RBC Hgb Hct MCV MCH MCHC Differential RDW Plt Count MPV Neutrophils % Lymphocytes % Monocytes % Eosinophils % Basophils % Sodium Potassium Chloride Carbon Dioxide Anion Gap BUN Creatinine Est GFR ( Amer) Est GFR (Non-Af Amer) BUN/Creatinine Ratio Glucose POC Glucose 86 Calcium Troponin I Urine Source Urine Color Urine Clarity Urine pH Ur Specific Corinne Urine Protein Urine Glucose (UA) Urine Ketones Urine Blood Urine Nitrate Urine Bilirubin Urine Urobilinogen Ur Leukocyte Esterase Urine RBC Urine WBC Ur Epithelial Cells Urine Bacteria Home Medication Medication Instructions Recorded Type Acetaminophen [Tylenol Extra 500 mg PO Q8HR PRN 04/15/18 History Strength] Acetylcysteine 600 mg GT BID 04/15/18 History [K-Uqxouq-e-Cysteine] Cranberry Fruit [Cranberry] 450 mg GT DAILY 04/15/18 History Docusate Sodium [Colace] 100 mg GT BID 04/15/18 History Potassium Chloride Elixir 20 meq GT DAILY 04/15/18 History Acetaminophen [Tylenol 650 mg GT Q6HR PRN udc 05/02/18 Rx 650mg/20.3mL Suspension] Albuterol Nebulizer 2.5mg/3mL 2.5 mg HHN BIDRT PRN each 05/02/18 Rx [Albuterol Neb UD*] Ascorbic Acid [Vitamin C] 500 mg GT DAILY tab 05/02/18 Rx Aspirin [Aspirin Chewable] 81 mg GT DAILY ctb 05/02/18 Rx Bisacodyl [Dulcolax 10 Mg Supp] 10 mg RC DAILY PRN sup 05/02/18 Rx Ferrous Sulfate [Iron] 300 mg PO DAILY udc 05/02/18 Rx Fleet Enema 135 ml RC Q48H PRN btl 05/02/18 Rx Lorazepam [Ativan] 1 mg GT Q4HR PRN tab 05/02/18 Rx Magnesium Hydroxide [Milk of 30 ml GT HS PRN udc 05/02/18 Rx Magnesia] Menthol/Zinc Oxide [Calmoseptine] 1 appl TP BID appl 05/02/18 Rx Midodrine [Proamatine] 5 mg GT TID tab 05/02/18 Rx Ondansetron [Zofran Odt] 4 mg PO Q6H PRN odt 05/02/18 Rx Pantoprazole [Protonix] 40 mg GT QDAC pkt 05/02/18 Rx Pioglitazone HCl [Actos] 15 mg GT DAILY tab 05/02/18 Rx QUEtiapine Fumarate [SEROquel] 75 mg PO TID tab 05/02/18 Rx Sennosides A and B [Senna] 8.6 mg GT DAILY tab 05/02/18 Rx Topiramate [Topamax] 150 mg GT DAILY tab 05/02/18 Rx Zolpidem Tartrate [Ambien] 5 mg GT HS PRN tab 05/02/18 Rx Current Medications Generic Name Dose Route Start Last Admin Trade Name Freq PRN Reason Stop Dose Admin Acetaminophen 650 mg 06/01/18 08:50 Tylenol 650mg/20.3ml Suspension GT 07/31/18 08:49 Q6H PRN MILD PAIN OR TEMP >100.5 Acetaminophen 500 mg 06/01/18 08:50 Tylenol Extra Strength PO 07/31/18 08:49 Q8H PRN MOD/SEVERE PAIN Albuterol Sulfate 2.5 mg 06/01/18 08:50 06/01/18 20:20 Albuterol 2.5mg/3ml Neb Ud HHN 07/31/18 08:49 2.5 mg BIDRT PRN Administration Wheezing Ascorbic Acid 500 mg 06/01/18 09:00 06/01/18 09:14 Vitamin C GT 07/31/18 08:59 Not Given DAILY WINIFRED Aspirin 81 mg 06/01/18 09:00 06/01/18 09:14 Aspirin Chewable GT 07/31/18 08:59 Not Given DAILY WINIFRED Bisacodyl 10 mg 06/01/18 08:50 Dulcolax 10 Mg Supp RC 07/31/18 08:49 DAILY PRN IF MOM INEFFECTIVE Calamine/Phenol 1 appl 06/01/18 09:00 06/01/18 17:49 Calmoseptine TP 07/31/18 08:59 1 appl BID WINIFRED Administration Docusate Sodium 100 mg 06/01/18 09:00 06/01/18 17:48 Colace PO 07/31/18 08:59 100 mg BID WINIFRED Administration Ferrous Sulfate 300 mg 06/01/18 09:00 06/01/18 09:14 Iron PO 07/31/18 08:59 Not Given DAILY WINIFRED Piperacillin Sod/Tazobactam 50 mls @ 100 mls/hr 06/01/18 08:00 06/01/18 17:55 Sod 3.375 gm/ Sodium Chloride IV 07/31/18 07:59 100 mls/hr Q8H WINIFRED Administration Dextrose/Sodium Chloride 1,000 mls @ 50 mls/hr 06/01/18 08:00 06/01/18 07:50 D5-0.45ns IV 07/31/18 07:59 50 mls/hr .Q20H WINIFRED Administration Doxycycline Hyclate 100 mg/ 100 mls @ 100 mls/hr 06/01/18 21:45 Dextrose IV 07/31/18 21:44 Q12H WINIFRED Insulin Aspart 0 units 06/01/18 12:00 06/01/18 18:42 Novolog Insulin Sliding Scale SUBQ 07/31/18 11:59 Not Given Q6HR WINIFRED Protocol Lorazepam 2 mg 06/01/18 09:36 06/01/18 17:48 Ativan IVP 07/31/18 09:35 2 mg Q4H PRN Administration Agitation Protocol Magnesium Hydroxide 30 ml 06/01/18 08:50 Milk Of Magnesia GT 07/31/18 08:49 HS PRN Constipation Midodrine 5 mg 06/01/18 09:00 06/01/18 21:02 Proamatine GT 07/31/18 08:59 5 mg TID WINIFRED Administration Ondansetron HCl 4 mg 06/01/18 08:50 Zofran Odt PO 07/31/18 08:49 Q6H PRN Nausea / Vomiting Pantoprazole Sodium 40 mg 06/02/18 07:30 Protonix GT 08/01/18 07:29 QDAC WINIFRED Pioglitazone HCl 15 mg 06/01/18 09:00 06/01/18 09:15 Actos GT 07/31/18 08:59 Not Given DAILY WINIFRED Potassium Chloride 20 meq 06/01/18 09:00 06/01/18 09:15 Potassium Chloride Elixir GT 07/31/18 08:59 Not Given DAILY WINIFRED Quetiapine Fumarate 50 mg/ 75 mg 06/01/18 09:00 06/01/18 21:02 Quetiapine Fumarate 25 mg GT 07/31/18 08:59 75 mg TID WINIFRED Administration Senna 8.6 mg 06/01/18 09:00 06/01/18 09:15 Senna GT 07/31/18 08:59 Not Given DAILY [facility] Sodium Phosphate 135 ml 06/01/18 08:50 Fleet Enema RC 07/31/18 08:49 Q48H PRN IF DULCOLAX INEFFECTIVE Topiramate 150 mg 06/01/18 09:00 06/01/18 09:15 Topamax GT 07/31/18 08:59 Not Given DAILY [facility] Zolpidem Tartrate 5 mg 06/01/18 08:50 Ambien GT 07/31/18 08:49 HS PRN Insomnia Review of Systems: A 12 point ROS was reviewed with the pertinent positive and negatives noted in the HPI. General/Constitutional: No fever Skin: No skin lesions Eyes: No loss of vision ENT: No earache Neck: No neck pain Cardio Vascular: No chest pain Pulmonary: No SOB GI: No vomiting G/U: No hematuria Musculoskeletal: No bone or joint pain Endocrine: No polyuria Psychiatric: Prior psych history Allergic/Immuno: No urticaria ( CELLULITIS,DM,GERD SEIZURESANXIETY DYSPHAGIA ANXIETY ) Neurological: No seizure Social History Smoking Status Unknown if ever smoked Drug Use No Alcohol Use No Lives at SNF. Physical Exam: General: Comfortable, not in acute distress. Sleeping at this time. HEENT: Head: Normocephalic. Oral cavity: Moist, pink tongue. Eyes: No pallor. No icterus. Pupil PERRLA. EOMI. Neck: Supple, no JVD, no carotid bruit. Cardio: S1 and S2 within normal limits regular rhythm no murmur no gallop. Respiratory: Vesicular breath sound. No crackles. No wheezing. Abdominal: Soft, nontender nondistended bowel sounds present. G tube ok. Genital/Urinary: Deferred. Extremities: No cyanosis, no clubbing, no edema. Neurological: Sleeping at this time. Assessment: 1. Aggressive behavior. 2. Cellulitis improving. 3. Dementia. 4. DM2. 5. Seizures. 6. Dysphagia, G tube. Plan: Will continue doxycycline. And discontinue Zosyn. Thank you, Dr. Sanders, for involving me in taking care of this patient Signed, Tejas Leigh M.D. [id number]
[2018-06-02] MEDS: D5-0.45NS 1,000 ML IV SCH (05:00)
[2018-06-02] MEDS: INSULIN ASPART SLIDING SCALE 100 UNITS/ML UNIT SUBQ SCH ×5 (05:31→22:30)
[2018-06-02] MEDS: Pantoprazole 40 mg/Packet GT SCH (07:38)
[2018-06-02] MEDS: Ferrous Sulfate 300 MG/5 ML UDC PO SCH (08:27)
[2018-06-02] MEDS: Potassium Chloride Elixir 20 mEq /15 mL UDC GT SCH (08:28)
[2018-06-02] MEDS: Aspirin 81mg Chewable Tab GT SCH (08:29)
[2018-06-02] MEDS: Menthol/Zinc Oxide Oint 113gm Tube TP SCH ×2 (08:30→17:33)
--- NOTE | 2018-06-02 12:31 | General Progress Note ---
Subjective - Review of Systems Events since last encounter: patient in icu on antibiotics treating cellulitis Objective - Results Result Diagrams: 06/01/18 03:10 06/01/18 03:10 Recent Labs: Laboratory Last Values WBC 11.1 Th/cmm (4.8-10.8) H 06/01/18 03:10 RBC 4.30 Mil/cmm (4.30-5.70) 06/01/18 03:10 Hgb 12.3 gm/dL (12-16) 06/01/18 03:10 Hct 37.8 % (41.0-60) L 06/01/18 03:10 MCV 88.0 fl (80-99) 06/01/18 03:10 MCH 28.5 pg (26.0-30.0) 06/01/18 03:10 MCHC Differential 32.4 pg (28.0-36.0) 06/01/18 03:10 RDW 15.1 % (11.5-20.0) 06/01/18 03:10 Plt Count 315 Th/cmm (150-400) 06/01/18 03:10 MPV 7.2 fl 06/01/18 03:10 Neutrophils % 69.1 % (40.0-80.0) 06/01/18 03:10 Lymphocytes % 15.7 % (20.0-50.0) L 06/01/18 03:10 Monocytes % 7.4 % (2.0-10.0) 06/01/18 03:10 Eosinophils % 6.9 % (0.0-5.0) H 06/01/18 03:10 Basophils % 0.9 % (0.0-2.0) 06/01/18 03:10 Sodium 139 mEq/L (136-145) 06/01/18 03:10 Potassium 3.9 mEq/L (3.5-5.1) 06/01/18 03:10 Chloride 108 mEq/L (98-107) H 06/01/18 03:10 Carbon Dioxide 23.3 mEq/L (21.0-31.0) 06/01/18 03:10 Anion Gap 11.6 (7.0-16.0) 06/01/18 03:10 BUN 14 mg/dL (7-25) 06/01/18 03:10 Creatinine 0.8 mg/dL (0.7-1.3) 06/01/18 03:10 Est GFR ( Amer) > 60.0 ml/min (>90) 06/01/18 03:10 Est GFR (Non-Af Amer) > 60.0 ml/min 06/01/18 03:10 BUN/Creatinine Ratio 17.5 06/01/18 03:10 Glucose 115 mg/dL (70-105) H 06/01/18 03:10 POC Glucose 122 MG/DL (70 - 105) H 06/02/18 11:52 Calcium 9.0 mg/dL (8.6-10.3) 06/01/18 03:10 Troponin I 0.01 ng/mL (0.01-0.05) 06/01/18 03:10 Urine Source RANDOM 06/01/18 17:00 Urine Color YELLOW 06/01/18 17:00 Urine Clarity CLEAR (CLEAR) 06/01/18 17:00 Urine pH 7.0 (4.6 - 8.0) 06/01/18 17:00 Ur Specific [place] 1.010 (1.005-1.030) 06/01/18 17:00 Urine Protein NEGATIVE mg/dL (NEGATIVE) 06/01/18 17:00 Urine Glucose (UA) NEGATIVE mg/dL (NEGATIVE) 06/01/18 17:00 Urine Ketones NEGATIVE mg/dL (NEGATIVE) 06/01/18 17:00 Urine Blood TRACE (NEGATIVE) 06/01/18 17:00 Urine Nitrate NEGATIVE (NEGATIVE) 06/01/18 17:00 Urine Bilirubin NEGATIVE (NEGATIVE) 06/01/18 17:00 Urine Urobilinogen 0.2 E.U./dL (0.2 - 1.0) 06/01/18 17:00 Ur Leukocyte Esterase NEGATIVE (NEGATIVE) 06/01/18 17:00 Urine RBC 0-2 /hpf (0-5) H 06/01/18 17:00 Urine WBC 0-2 /hpf (0-5) 06/01/18 17:00 Ur Epithelial Cells FEW /lpf (FEW) 06/01/18 17:00 Urine Bacteria OCCASIONAL /hpf (NONE SEEN) 06/01/18 17:00 - Physical Exam Vitals and I&O: Vital Signs Temp 98.2 F 06/02/18 11:00 Pulse 99 06/02/18 11:00 Resp 20 06/02/18 11:00 BP 138/57 06/02/18 11:00 Pulse Ox 97 06/02/18 08:00 Intake & Output 06/01/18 06/02/18 06/02/18 18:59 06:59 18:59 Intake Total 100 1150 50 Balance 100 1150 50 Weight (lbs) 83.915 kg Intake: Intake, IV Amount 100 1150 50 D5-0.45NS 1,000 ml @ 50 1000 mls/hr IV .Q20H [facility] Rx#: [id number] Doxycycline Hyclate 100 100 mg In Dextrose 5% 100 ml @ 100 mls/hr IV Q12H [facility] Rx#:[id number] Piperacillin Sodium/ 100 50 50 Tazobact 3.375 gm In Sodium Chloride 0.9% 50 ml @ 100 mls/hr IV Q8H [facility] Rx#:[id number] Other: # Voids 2 # Bowel Movements 1 Weight Source Bedscale Active Medications: Current Medications Acetaminophen (Tylenol 650mg/20.3ml Suspension) 650 mg GT Q6H PRN PRN Reason: MILD PAIN OR TEMP >100.5 Stop: 07/31/18 08:49 Acetaminophen (Tylenol Extra Strength) 500 mg PO Q8H PRN PRN Reason: MOD/SEVERE PAIN Stop: 07/31/18 08:49 Albuterol Sulfate (Albuterol 2.5mg/3ml Neb Ud) 2.5 mg HHN BIDRT PRN PRN Reason: Wheezing Stop: 07/31/18 08:49 Last Admin: 06/01/18 20:20 Dose: 2.5 mg Ascorbic Acid (Vitamin C) 500 mg GT DAILY [facility] Stop: 07/31/18 08:59 Last Admin: 06/02/18 08:29 Dose: 500 mg Aspirin (Aspirin Chewable) 81 mg GT DAILY [facility] Stop: 07/31/18 08:59 Last Admin: 06/02/18 08:29 Dose: 81 mg Bisacodyl (Dulcolax 10 Mg Supp) 10 mg RC DAILY PRN PRN Reason: IF MOM INEFFECTIVE Stop: 07/31/18 08:49 Calamine/Phenol (Calmoseptine) 1 appl TP BID [facility] Stop: 07/31/18 08:59 Last Admin: 06/02/18 08:30 Dose: 1 appl Docusate Sodium (Colace) 100 mg PO BID [facility] Stop: 07/31/18 08:59 Last Admin: 06/02/18 08:29 Dose: 100 mg Ferrous Sulfate (Iron) 300 mg PO DAILY [facility] Stop: 07/31/18 08:59 Last Admin: 06/02/18 08:27 Dose: 300 mg Piperacillin Sod/Tazobactam (Sod 3.375 gm/ Sodium Chloride) 50 mls @ 100 mls/ hr IV Q8H [facility] Stop: 07/31/18 07:59 Last Infusion: 06/02/18 09:00 Dose: Infused Dextrose/Sodium Chloride (D5-0.45ns) 1,000 mls @ 50 mls/hr IV .Q20H [facility] Stop: 07/31/18 07:59 Last Admin: 06/02/18 05:00 Dose: 50 mls/hr Doxycycline Hyclate 100 mg/ (Dextrose) 100 mls @ 100 mls/hr IV Q12H [facility] Stop: 07/31/18 21:59 Last Admin: 06/02/18 11:20 Dose: 100 mls/hr Insulin Aspart (Novolog Insulin Sliding Scale) 0 units SUBQ Q6HR [facility]; Protocol Stop: 07/31/18 11:59 Last Admin: 06/02/18 05:31 Dose: Not Given Lorazepam (Ativan) 2 mg IVP Q4H PRN; Protocol PRN Reason: Agitation Stop: 07/31/18 09:35 Last Admin: 06/02/18 08:28 Dose: 2 mg Magnesium Hydroxide (Milk Of Magnesia) 30 ml GT HS PRN PRN Reason: Constipation Stop: 07/31/18 08:49 Midodrine (Proamatine) 5 mg GT TID [facility] Stop: 07/31/18 08:59 Last Admin: 06/02/18 08:29 Dose: 5 mg Ondansetron HCl (Zofran Odt) 4 mg PO Q6H PRN PRN Reason: Nausea / Vomiting Stop: 07/31/18 08:49 Pantoprazole Sodium (Protonix) 40 mg GT QDAC [facility] Stop: 08/01/18 07:29 Last Admin: 06/02/18 07:38 Dose: 40 mg Pioglitazone HCl (Actos) 15 mg GT DAILY [facility] Stop: 07/31/18 08:59 Last Admin: 06/02/18 08:28 Dose: 15 mg Potassium Chloride (Potassium Chloride Elixir) 20 meq GT DAILY [facility] Stop: 07/31/18 08:59 Last Admin: 06/02/18 08:28 Dose: 20 meq Quetiapine Fumarate 50 mg/ (Quetiapine Fumarate 25 mg) 75 mg GT TID [facility] Stop: 07/31/18 08:59 Last Admin: 06/02/18 08:29 Dose: 75 mg Senna (Senna) 8.6 mg GT DAILY [facility] Stop: 07/31/18 08:59 Last Admin: 06/02/18 08:28 Dose: 8.6 mg Sodium Phosphate (Fleet Enema) 135 ml RC Q48H PRN PRN Reason: IF DULCOLAX INEFFECTIVE Stop: 07/31/18 08:49 Topiramate (Topamax) 150 mg GT DAILY [facility] Stop: 07/31/18 08:59 Last Admin: 06/02/18 08:29 Dose: 150 mg Zolpidem Tartrate (Ambien) 5 mg GT HS PRN PRN Reason: Insomnia Stop: 07/31/18 08:49
--- NOTE | 2018-06-02 19:41 | Infectious Disease Prog Note ---
Infectious Disease Subjective - Review of Systems Service Date: 06/02/18 Subjective: no new change, no fever. Infectious Disease Objective - Results Result Diagrams: 06/01/18 03:10 06/01/18 03:10 Recent Labs: Laboratory Last Values WBC 11.1 Th/cmm (4.8-10.8) H 06/01/18 03:10 RBC 4.30 Mil/cmm (4.30-5.70) 06/01/18 03:10 Hgb 12.3 gm/dL (12-16) 06/01/18 03:10 Hct 37.8 % (41.0-60) L 06/01/18 03:10 MCV 88.0 fl (80-99) 06/01/18 03:10 MCH 28.5 pg (26.0-30.0) 06/01/18 03:10 MCHC Differential 32.4 pg (28.0-36.0) 06/01/18 03:10 RDW 15.1 % (11.5-20.0) 06/01/18 03:10 Plt Count 315 Th/cmm (150-400) 06/01/18 03:10 MPV 7.2 fl 06/01/18 03:10 Neutrophils % 69.1 % (40.0-80.0) 06/01/18 03:10 Lymphocytes % 15.7 % (20.0-50.0) L 06/01/18 03:10 Monocytes % 7.4 % (2.0-10.0) 06/01/18 03:10 Eosinophils % 6.9 % (0.0-5.0) H 06/01/18 03:10 Basophils % 0.9 % (0.0-2.0) 06/01/18 03:10 Sodium 139 mEq/L (136-145) 06/01/18 03:10 Potassium 3.9 mEq/L (3.5-5.1) 06/01/18 03:10 Chloride 108 mEq/L (98-107) H 06/01/18 03:10 Carbon Dioxide 23.3 mEq/L (21.0-31.0) 06/01/18 03:10 Anion Gap 11.6 (7.0-16.0) 06/01/18 03:10 BUN 14 mg/dL (7-25) 06/01/18 03:10 Creatinine 0.8 mg/dL (0.7-1.3) 06/01/18 03:10 Est GFR ( Amer) > 60.0 ml/min (>90) 06/01/18 03:10 Est GFR (Non-Af Amer) > 60.0 ml/min 06/01/18 03:10 BUN/Creatinine Ratio 17.5 06/01/18 03:10 Glucose 115 mg/dL (70-105) H 06/01/18 03:10 POC Glucose 133 MG/DL (70 - 105) H 06/02/18 16:50 Calcium 9.0 mg/dL (8.6-10.3) 06/01/18 03:10 Troponin I 0.01 ng/mL (0.01-0.05) 06/01/18 03:10 Urine Source RANDOM 06/01/18 17:00 Urine Color YELLOW 06/01/18 17:00 Urine Clarity CLEAR (CLEAR) 06/01/18 17:00 Urine pH 7.0 (4.6 - 8.0) 06/01/18 17:00 Ur Specific [place] 1.010 (1.005-1.030) 06/01/18 17:00 Urine Protein NEGATIVE mg/dL (NEGATIVE) 06/01/18 17:00 Urine Glucose (UA) NEGATIVE mg/dL (NEGATIVE) 06/01/18 17:00 Urine Ketones NEGATIVE mg/dL (NEGATIVE) 06/01/18 17:00 Urine Blood TRACE (NEGATIVE) 06/01/18 17:00 Urine Nitrate NEGATIVE (NEGATIVE) 06/01/18 17:00 Urine Bilirubin NEGATIVE (NEGATIVE) 06/01/18 17:00 Urine Urobilinogen 0.2 E.U./dL (0.2 - 1.0) 06/01/18 17:00 Ur Leukocyte Esterase NEGATIVE (NEGATIVE) 06/01/18 17:00 Urine RBC 0-2 /hpf (0-5) H 06/01/18 17:00 Urine WBC 0-2 /hpf (0-5) 06/01/18 17:00 Ur Epithelial Cells FEW /lpf (FEW) 06/01/18 17:00 Urine Bacteria OCCASIONAL /hpf (NONE SEEN) 06/01/18 17:00 - Physical Exam Vitals and I&O: Vital Signs Temp 98 F 06/02/18 19:00 Pulse 93 06/02/18 19:00 Resp 20 06/02/18 19:00 BP 118/66 06/02/18 19:00 Pulse Ox 98 06/02/18 16:00 Intake & Output 06/02/18 06/02/18 06/03/18 06:59 18:59 06:59 Intake Total 1150 800 Output Total 1300 Balance 1150 -500 Weight (lbs) 83.915 kg 83.915 kg Intake: Intake, IV Amount 1150 200 D5-0.45NS 1,000 ml @ 50 1000 mls/hr IV .Q20H [facility] Rx#: [id number] Doxycycline Hyclate 100 100 100 mg In Dextrose 5% 100 ml @ 100 mls/hr IV Q12H [facility] Rx#:[id number] Piperacillin Sodium/ 50 100 Tazobact 3.375 gm In Sodium Chloride 0.9% 50 ml @ 100 mls/hr IV Q8H [facility] Rx#:[id number] Tube Feeding 400 Other 200 Output: Urine 1300 Other: # Voids 2 # Bowel Movements 1 Weight Source Bedscale Bedscale Active Medications: Current Medications Acetaminophen (Tylenol 650mg/20.3ml Suspension) 650 mg GT Q6H PRN PRN Reason: MILD PAIN OR TEMP >100.5 Stop: 07/31/18 08:49 Acetaminophen (Tylenol Extra Strength) 500 mg PO Q8H PRN PRN Reason: MOD/SEVERE PAIN Stop: 07/31/18 08:49 Albuterol Sulfate (Albuterol 2.5mg/3ml Neb Ud) 2.5 mg HHN BIDRT PRN PRN Reason: Wheezing Stop: 07/31/18 08:49 Last Admin: 06/01/18 20:20 Dose: 2.5 mg Ascorbic Acid (Vitamin C) 500 mg GT DAILY [facility] Stop: 07/31/18 08:59 Last Admin: 06/02/18 08:29 Dose: 500 mg Aspirin (Aspirin Chewable) 81 mg GT DAILY [facility] Stop: 07/31/18 08:59 Last Admin: 06/02/18 08:29 Dose: 81 mg Bisacodyl (Dulcolax 10 Mg Supp) 10 mg RC DAILY PRN PRN Reason: IF MOM INEFFECTIVE Stop: 07/31/18 08:49 Calamine/Phenol (Calmoseptine) 1 appl TP BID [facility] Stop: 07/31/18 08:59 Last Admin: 06/02/18 17:33 Dose: 1 appl Docusate Sodium (Colace) 100 mg PO BID [facility] Stop: 07/31/18 08:59 Last Admin: 06/02/18 17:23 Dose: 100 mg Ferrous Sulfate (Iron) 300 mg PO DAILY [facility] Stop: 07/31/18 08:59 Last Admin: 06/02/18 08:27 Dose: 300 mg Piperacillin Sod/Tazobactam (Sod 3.375 gm/ Sodium Chloride) 50 mls @ 100 mls/ hr IV Q8H [facility] Stop: 07/31/18 07:59 Last Infusion: 06/02/18 18:00 Dose: Infused Dextrose/Sodium Chloride (D5-0.45ns) 1,000 mls @ 50 mls/hr IV .Q20H [facility] Stop: 07/31/18 07:59 Last Admin: 06/02/18 05:00 Dose: 50 mls/hr Doxycycline Hyclate 100 mg/ (Dextrose) 100 mls @ 100 mls/hr IV Q12H [facility] Stop: 07/31/18 21:59 Last Infusion: 06/02/18 12:20 Dose: Infused Insulin Aspart (Novolog Insulin Sliding Scale) 0 units SUBQ Q6HR [facility]; Protocol Stop: 07/31/18 11:59 Last Admin: 06/02/18 18:03 Dose: Not Given Lorazepam (Ativan) 2 mg IVP Q4H PRN; Protocol PRN Reason: Agitation Stop: 07/31/18 09:35 Last Admin: 06/02/18 08:28 Dose: 2 mg Magnesium Hydroxide (Milk Of Magnesia) 30 ml GT HS PRN PRN Reason: Constipation Stop: 07/31/18 08:49 Midodrine (Proamatine) 5 mg GT TID [facility] Stop: 07/31/18 08:59 Last Admin: 06/02/18 15:13 Dose: 5 mg Mupirocin (Bactroban Oint) 1 appl NS BID [facility] Stop: 06/07/18 17:01 Ondansetron HCl (Zofran Odt) 4 mg PO Q6H PRN PRN Reason: Nausea / Vomiting Stop: 07/31/18 08:49 Pantoprazole Sodium (Protonix) 40 mg GT QDAC [facility] Stop: 08/01/18 07:29 Last Admin: 06/02/18 07:38 Dose: 40 mg Pioglitazone HCl (Actos) 15 mg GT DAILY [facility] Stop: 07/31/18 08:59 Last Admin: 06/02/18 08:28 Dose: 15 mg Potassium Chloride (Potassium Chloride Elixir) 20 meq GT DAILY [facility] Stop: 07/31/18 08:59 Last Admin: 06/02/18 08:28 Dose: 20 meq Quetiapine Fumarate 50 mg/ (Quetiapine Fumarate 25 mg) 75 mg GT TID [facility] Stop: 07/31/18 08:59 Last Admin: 06/02/18 15:13 Dose: 75 mg Senna (Senna) 8.6 mg GT DAILY [facility] Stop: 07/31/18 08:59 Last Admin: 06/02/18 08:28 Dose: 8.6 mg Sodium Phosphate (Fleet Enema) 135 ml RC Q48H PRN PRN Reason: IF DULCOLAX INEFFECTIVE Stop: 07/31/18 08:49 Topiramate (Topamax) 150 mg GT DAILY [facility] Stop: 07/31/18 08:59 Last Admin: 06/02/18 08:29 Dose: 150 mg Zolpidem Tartrate (Ambien) 5 mg GT HS PRN PRN Reason: Insomnia Stop: 07/31/18 08:49 General: no acute distress, well developed, well nourished HEENT: atraumatic, normocephalic, PERRLA, EOMI, moist mucous membrane Neck: supple, no thyromegaly, no lymphadenopathy, no rigid Cardiovascular: S1S2, regular Lungs: clear to auscultation bilaterally, clear to percussion Abdomen: soft, bowel sounds, no tender, no distended, no mass, no hepatomegaly, no splenomegaly Extremities: other (right leg wouns with m ild erythema), no cyanosis, no clubbing, no edema Neurological: awake, alert Infectious Disease Assmt/Plan - Assessment Assessment: 1. Aggressive behavior. 2. Cellulitis improving. 3. Dementia. 4. DM2. 5. Seizures. 6. Dysphagia, G tube. 7. MRSA colonization. - Plan Plan: Continue the same treatment plan. Bactropban nasal.
[2018-06-02] MEDS: Albuterol Nebulizer 2.5mg/3mL HHN PRN (21:45)
--- NOTE | 2018-06-03 00:27 | Consultation ---
DATE OF CONSULTATION: This is Dr. Camara doing initial consultation here in the ICU. REFERRING PHYSICIAN: . CONSULTING PHYSICIAN: Dr. Camara. REASON FOR CONSULTATION: Agitation. HISTORY OF PRESENT ILLNESS: A 58-year-old male brought in here from a shelter with agitated and aggressive behavior towards staff, placed in ICU, found to have septic shock secondary to cellulitis. Today on [id number] evaluation, the patient had required emergent medications. On [id number], he is slightly sedated, agitated, needing 4-point restraint. ALLERGIES TO MEDICATIONS: NKDA. CURRENT MEDICAL PROBLEMS: Include cellulitis. FAMILY PSYCHIATRIC HISTORY: Unknown. LEGAL HISTORY: Unknown. PAST MEDICAL HISTORY: Includes diabetes, seizures, and cataracts. PAST PSYCHIATRIC HISTORY: Unknown. CURRENT MEDICATIONS: The patient is on aspirin, Calmoseptine, Colace, iron, insulin, Ativan, Zofran, Zosyn, Seroquel 75 mg 3 times a day, Topamax 150 mg daily, Ambien as needed. MENTAL STATUS EXAMINATION: Agitated, aggressive, delirious, upon approach daily and upon conversation becomes more irritable, nonsensical comments. ASSESSMENT AND PLAN: The patient with unknown underlying history of psychiatric illness, who comes in with Seroquel and Topamax, presented very agitated and aggressive and intubated secondary to cellulitis and septic shock exacerbating the patient's delirious state consistent that the patient only has a potential psychiatric illness, but also an underlying delirium that is agitating the patient. Recommend to continue with the Seroquel. If the patient continues to need adjustments in regards to the patient's agitation, recommend to continue increasing Seroquel to 100 mg p.o. t.i.d. while monitoring for side effects. Will be obtaining more collateral and baseline information. Primary medical team to continue to follow along, but addressing primary medical illness that will alleviate the patient's delirium. PRIMARY DIAGNOSIS: Unspecified psychosis. SECONDARY DIAGNOSIS: Delirium, rule out schizophrenia. MEDICAL DIAGNOSIS: As noted above. PLAN: 1. No criteria met for 5150 at this point. 2. Continue monitoring, evaluating, follow along medical team. 3. Recommend to continue increasing the Seroquel to 100 mg p.o. t.i.d. to target the patient's agitated behavior and reduce the risk of IMs. 5. We will continue to follow alongside. 6. We will continue to obtain more collateral baseline information. JOB# [id number]
[2018-06-03] MEDS: D5-0.45NS 1,000 ML IV SCH (05:18)
[2018-06-03] MEDS: Pantoprazole 40 mg/Packet GT SCH (06:46)
[2018-06-03] MEDS: INSULIN ASPART SLIDING SCALE 100 UNITS/ML UNIT SUBQ SCH ×3 (06:54→17:39)
[2018-06-03 08:06] LABS: ALB/GLOB RATIO 1.2 (1.0-1.8); ALBUMIN 3.6 gm/dL (4.2-5.5); ALKALINE PHOSPHATASE 95 U/L (34-104); ANION GAP 9.2 (7.0-16.0); BILIRUBIN,TOTAL 0.3 mg/dL (0.3-1.0); BUN - UREA NITROGEN 8 mg/dL (7-25); CARBON DIOXIDE 23.9 mEq/L (21.0-31.0); CHLORIDE 108 mEq/L (98-107); CREATININE - SERUM 0.8 mg/dL (0.7-1.3); GFR AFRICAN-AMERICAN > 60.0 ml/min (>90); GFR NON AFRICAN-AMERICAN > 60.0 ml/min; GLUCOSE 118 mg/dL (70-105); POTASSIUM SERUM 4.1 mEq/L (3.5-5.1); SGOT 13 U/L (13-39); SGPT/ALT 9 U/L (7-52); SODIUM SERUM 137 mEq/L (136-145); TOTAL PROTEIN,SERUM 6.5 gm/dL (6.0-8.3)
[2018-06-03] MEDS: Aspirin 81mg Chewable Tab GT SCH (08:39)
[2018-06-03] MEDS: Ferrous Sulfate 300 MG/5 ML UDC PO SCH (08:39)
[2018-06-03] MEDS: Menthol/Zinc Oxide Oint 113gm Tube TP SCH ×2 (08:40→16:36)
[2018-06-03] MEDS: Potassium Chloride Elixir 20 mEq /15 mL UDC GT SCH (08:48)
--- NOTE | 2018-06-03 11:43 | Progress Notes ---
DATE: SUBJECTIVE: Nursing staff reported that the patient continues to be needing upper and lower restraints. Today on [id number] evaluation, the patient is awake, but making nonsensical comments and not really able to engage in minimal conversation. MENTAL STATUS EXAMINATION: Continues to be delirious. ASSESSMENT AND PLAN: The patient is a 58-year-old male with a history of schizophrenia with underlying delirium that is causing the patient's symptoms. Seroquel 300 mg a day redistributed at 100 mg p.o. t.i.d. to target the patient's aggressive and agitated state. JOB# [id number]
[2018-06-03] MEDS ORDERED: Probiotic Screen MC PRN (12:19)
--- NOTE | 2018-06-03 13:35 | Infectious Disease Prog Note ---
Infectious Disease Subjective - Review of Systems Service Date: 06/03/18 Subjective: no new change, no fever. Infectious Disease Objective - Results Result Diagrams: 06/01/18 03:10 06/03/18 07:15 Recent Labs: Laboratory Last Values WBC 11.1 Th/cmm (4.8-10.8) H 06/01/18 03:10 RBC 4.30 Mil/cmm (4.30-5.70) 06/01/18 03:10 Hgb 12.3 gm/dL (12-16) 06/01/18 03:10 Hct 37.8 % (41.0-60) L 06/01/18 03:10 MCV 88.0 fl (80-99) 06/01/18 03:10 MCH 28.5 pg (26.0-30.0) 06/01/18 03:10 MCHC Differential 32.4 pg (28.0-36.0) 06/01/18 03:10 RDW 15.1 % (11.5-20.0) 06/01/18 03:10 Plt Count 315 Th/cmm (150-400) 06/01/18 03:10 MPV 7.2 fl 06/01/18 03:10 Neutrophils % 69.1 % (40.0-80.0) 06/01/18 03:10 Lymphocytes % 15.7 % (20.0-50.0) L 06/01/18 03:10 Monocytes % 7.4 % (2.0-10.0) 06/01/18 03:10 Eosinophils % 6.9 % (0.0-5.0) H 06/01/18 03:10 Basophils % 0.9 % (0.0-2.0) 06/01/18 03:10 Sodium 137 mEq/L (136-145) 06/03/18 07:15 Potassium 4.1 mEq/L (3.5-5.1) 06/03/18 07:15 Chloride 108 mEq/L (98-107) H 06/03/18 07:15 Carbon Dioxide 23.9 mEq/L (21.0-31.0) 06/03/18 07:15 Anion Gap 9.2 (7.0-16.0) 06/03/18 07:15 BUN 8 mg/dL (7-25) 06/03/18 07:15 Creatinine 0.8 mg/dL (0.7-1.3) 06/03/18 07:15 Est GFR ( Amer) > 60.0 ml/min (>90) 06/03/18 07:15 Est GFR (Non-Af Amer) > 60.0 ml/min 06/03/18 07:15 BUN/Creatinine Ratio 10.0 06/03/18 07:15 Glucose 118 mg/dL (70-105) H 06/03/18 07:15 POC Glucose 120 MG/DL (70 - 105) H 06/03/18 11:38 Calcium 9.0 mg/dL (8.6-10.3) 06/03/18 07:15 Total Bilirubin 0.3 mg/dL (0.3-1.0) 06/03/18 07:15 AST 13 U/L (13-39) 06/03/18 07:15 ALT 9 U/L (7-52) 06/03/18 07:15 Alkaline Phosphatase 95 U/L (34-104) 06/03/18 07:15 Troponin I 0.01 ng/mL (0.01-0.05) 06/01/18 03:10 Total Protein 6.5 gm/dL (6.0-8.3) 06/03/18 07:15 Albumin 3.6 gm/dL (4.2-5.5) L 06/03/18 07:15 Globulin 2.9 gm/dL 06/03/18 07:15 Albumin/Globulin Ratio 1.2 (1.0-1.8) 06/03/18 07:15 Urine Source RANDOM 06/01/18 17:00 Urine Color YELLOW 06/01/18 17:00 Urine Clarity CLEAR (CLEAR) 06/01/18 17:00 Urine pH 7.0 (4.6 - 8.0) 06/01/18 17:00 Ur Specific [place] 1.010 (1.005-1.030) 06/01/18 17:00 Urine Protein NEGATIVE mg/dL (NEGATIVE) 06/01/18 17:00 Urine Glucose (UA) NEGATIVE mg/dL (NEGATIVE) 06/01/18 17:00 Urine Ketones NEGATIVE mg/dL (NEGATIVE) 06/01/18 17:00 Urine Blood TRACE (NEGATIVE) 06/01/18 17:00 Urine Nitrate NEGATIVE (NEGATIVE) 06/01/18 17:00 Urine Bilirubin NEGATIVE (NEGATIVE) 06/01/18 17:00 Urine Urobilinogen 0.2 E.U./dL (0.2 - 1.0) 06/01/18 17:00 Ur Leukocyte Esterase NEGATIVE (NEGATIVE) 06/01/18 17:00 Urine RBC 0-2 /hpf (0-5) H 06/01/18 17:00 Urine WBC 0-2 /hpf (0-5) 06/01/18 17:00 Ur Epithelial Cells FEW /lpf (FEW) 06/01/18 17:00 Urine Bacteria OCCASIONAL /hpf (NONE SEEN) 06/01/18 17:00 - Physical Exam Vitals and I&O: Vital Signs Temp 96.8 F 06/03/18 12:00 Pulse 91 06/03/18 13:00 Resp 16 06/03/18 13:00 BP 133/77 06/03/18 13:00 Pulse Ox 98 06/03/18 12:00 Intake & Output 06/02/18 06/03/18 06/03/18 18:59 06:59 18:59 Intake Total 800 1100 100 Output Total 1300 800 Balance -500 300 100 Weight (lbs) 83.915 kg 83.915 kg Intake: Intake, IV Amount 200 1100 100 D5-0.45NS 1,000 ml @ 50 1000 mls/hr IV .Q20H [facility] Rx#: [id number] Doxycycline Hyclate 100 100 100 100 mg In Dextrose 5% 100 ml @ 100 mls/hr IV Q12H [facility] Rx#:[id number] Piperacillin Sodium/ 100 Tazobact 3.375 gm In Sodium Chloride 0.9% 50 ml @ 100 mls/hr IV Q8H [facility] Rx#:[id number] Tube Feeding 400 Other 200 Output: Urine 1300 800 Other: Weight Source Bedscale Bedscale Active Medications: Current Medications Acetaminophen (Tylenol 650mg/20.3ml Suspension) 650 mg GT Q6H PRN PRN Reason: MILD PAIN OR TEMP >100.5 Stop: 07/31/18 08:49 Acetaminophen (Tylenol Extra Strength) 500 mg PO Q8H PRN PRN Reason: MOD/SEVERE PAIN Stop: 07/31/18 08:49 Albuterol Sulfate (Albuterol 2.5mg/3ml Neb Ud) 2.5 mg HHN BIDRT PRN PRN Reason: Wheezing Stop: 07/31/18 08:49 Last Admin: 06/02/18 21:45 Dose: 2.5 mg Ascorbic Acid (Vitamin C) 500 mg GT DAILY [facility] Stop: 07/31/18 08:59 Last Admin: 06/03/18 08:39 Dose: 500 mg Aspirin (Aspirin Chewable) 81 mg GT DAILY [facility] Stop: 07/31/18 08:59 Last Admin: 06/03/18 08:39 Dose: 81 mg Bisacodyl (Dulcolax 10 Mg Supp) 10 mg RC DAILY PRN PRN Reason: IF MOM INEFFECTIVE Stop: 07/31/18 08:49 Calamine/Phenol (Calmoseptine) 1 appl TP BID [facility]RED Stop: 07/31/18 08:59 Last Admin: 06/03/18 08:40 Dose: 1 appl Docusate Sodium (Colace) 100 mg PO BID WIN[facility]RED Stop: 07/31/18 08:59 Last Admin: 06/03/18 08:39 Dose: 100 mg Ferrous Sulfate (Iron) 300 mg PO DAILY [facility] Stop: 07/31/18 08:59 Last Admin: 06/03/18 08:39 Dose: 300 mg Dextrose/Sodium Chloride (D5-0.45ns) 1,000 mls @ 50 mls/hr IV .Q20H [facility] Stop: 07/31/18 07:59 Last Admin: 06/03/18 05:18 Dose: 50 mls/hr Doxycycline Hyclate 100 mg/ (Dextrose) 100 mls @ 100 mls/hr IV Q12H [facility] Stop: 07/31/18 21:59 Last Infusion: 06/03/18 11:20 Dose: Infused Piperacillin Sod/Tazobactam (Sod 3.375 gm/ Sodium Chloride) 50 mls @ 100 mls/ hr IV Q8HR [facility] Stop: 08/02/18 12:59 Insulin Aspart (Novolog Insulin Sliding Scale) 0 units SUBQ Q6HR WINIFRED; Protocol Stop: 07/31/18 11:59 Last Admin: 06/03/18 11:39 Dose: Not Given Lactobacillus Rhamnosus (Culturelle 15b) 1 each PO DAILY [facility] Stop: 08/02/18 13:59 Lorazepam (Ativan) 2 mg IVP Q4H PRN; Protocol PRN Reason: Agitation Stop: 07/31/18 09:35 Last Admin: 06/03/18 06:45 Dose: 2 mg Magnesium Hydroxide (Milk Of Magnesia) 30 ml GT HS PRN PRN Reason: Constipation Stop: 07/31/18 08:49 Midodrine (Proamatine) 5 mg GT TID [facility] Stop: 07/31/18 08:59 Last Admin: 06/03/18 08:39 Dose: 5 mg Miscellaneous (Probiotic Screen) 1 ea MC PRN PRN PRN Reason: PROTOCOL Stop: 08/02/18 12:18 Mupirocin (Bactroban Oint) 1 appl NS BID [facility] Stop: 06/07/18 17:01 Last Admin: 06/03/18 08:43 Dose: 1 appl Ondansetron HCl (Zofran Odt) 4 mg PO Q6H PRN PRN Reason: Nausea / Vomiting Stop: 07/31/18 08:49 Pantoprazole Sodium (Protonix) 40 mg GT QDAC [facility] Stop: 08/01/18 07:29 Last Admin: 06/03/18 06:46 Dose: 40 mg Pioglitazone HCl (Actos) 15 mg GT DAILY [facility] Stop: 07/31/18 08:59 Last Admin: 06/03/18 08:39 Dose: 15 mg Potassium Chloride (Potassium Chloride Elixir) 20 meq GT DAILY [facility] Stop: 07/31/18 08:59 Last Admin: 06/03/18 08:48 Dose: 20 meq Quetiapine Fumarate 50 mg/ (Quetiapine Fumarate 25 mg) 75 mg GT TID [facility] Stop: 07/31/18 08:59 Last Admin: 06/03/18 08:49 Dose: 75 mg Senna (Senna) 8.6 mg GT DAILY [facility] Stop: 07/31/18 08:59 Last Admin: 06/03/18 08:40 Dose: 8.6 mg Sodium Phosphate (Fleet Enema) 135 ml RC Q48H PRN PRN Reason: IF DULCOLAX INEFFECTIVE Stop: 07/31/18 08:49 Topiramate (Topamax) 150 mg GT DAILY [facility] Stop: 07/31/18 08:59 Last Admin: 06/03/18 08:40 Dose: 150 mg Zolpidem Tartrate (Ambien) 5 mg GT HS PRN PRN Reason: Insomnia Stop: 07/31/18 08:49 General: no acute distress, well developed, well nourished HEENT: atraumatic, normocephalic, PERRLA Neck: supple, no thyromegaly, no lymphadenopathy Cardiovascular: S1S2, regular Lungs: clear to auscultation bilaterally, clear to percussion Abdomen: soft, no tender, no distended, no mass Extremities: other (righ tfoot small wound), no cyanosis, no clubbing, no edema Neurological: awake, alert, oriented Skin: intact Infectious Disease Assmt/Plan - Assessment Assessment: 1. Aggressive behavior. 2. Cellulitis improving. 3. Dementia. 4. DM2. 5. Seizures. 6. Dysphagia, G tube. 7. MRSA colonization. - Plan Plan: Continue the same treatment plan. Bactropban nasal.
[2018-06-03] MEDS: Lactobacillus Rhamnosus GG 15 Billion CFU CAP.SPRINK PO SCH (14:11)
--- NOTE | 2018-06-03 16:08 | General Progress Note ---
Subjective - Review of Systems Events since last encounter: no change Objective - Results Result Diagrams: 06/01/18 03:10 06/03/18 07:15 Recent Labs: Laboratory Last Values WBC 11.1 Th/cmm (4.8-10.8) H 06/01/18 03:10 RBC 4.30 Mil/cmm (4.30-5.70) 06/01/18 03:10 Hgb 12.3 gm/dL (12-16) 06/01/18 03:10 Hct 37.8 % (41.0-60) L 06/01/18 03:10 MCV 88.0 fl (80-99) 06/01/18 03:10 MCH 28.5 pg (26.0-30.0) 06/01/18 03:10 MCHC Differential 32.4 pg (28.0-36.0) 06/01/18 03:10 RDW 15.1 % (11.5-20.0) 06/01/18 03:10 Plt Count 315 Th/cmm (150-400) 06/01/18 03:10 MPV 7.2 fl 06/01/18 03:10 Neutrophils % 69.1 % (40.0-80.0) 06/01/18 03:10 Lymphocytes % 15.7 % (20.0-50.0) L 06/01/18 03:10 Monocytes % 7.4 % (2.0-10.0) 06/01/18 03:10 Eosinophils % 6.9 % (0.0-5.0) H 06/01/18 03:10 Basophils % 0.9 % (0.0-2.0) 06/01/18 03:10 Sodium 137 mEq/L (136-145) 06/03/18 07:15 Potassium 4.1 mEq/L (3.5-5.1) 06/03/18 07:15 Chloride 108 mEq/L (98-107) H 06/03/18 07:15 Carbon Dioxide 23.9 mEq/L (21.0-31.0) 06/03/18 07:15 Anion Gap 9.2 (7.0-16.0) 06/03/18 07:15 BUN 8 mg/dL (7-25) 06/03/18 07:15 Creatinine 0.8 mg/dL (0.7-1.3) 06/03/18 07:15 Est GFR ( Amer) > 60.0 ml/min (>90) 06/03/18 07:15 Est GFR (Non-Af Amer) > 60.0 ml/min 06/03/18 07:15 BUN/Creatinine Ratio 10.0 06/03/18 07:15 Glucose 118 mg/dL (70-105) H 06/03/18 07:15 POC Glucose 120 MG/DL (70 - 105) H 06/03/18 11:38 Calcium 9.0 mg/dL (8.6-10.3) 06/03/18 07:15 Total Bilirubin 0.3 mg/dL (0.3-1.0) 06/03/18 07:15 AST 13 U/L (13-39) 06/03/18 07:15 ALT 9 U/L (7-52) 06/03/18 07:15 Alkaline Phosphatase 95 U/L (34-104) 06/03/18 07:15 Troponin I 0.01 ng/mL (0.01-0.05) 06/01/18 03:10 Total Protein 6.5 gm/dL (6.0-8.3) 06/03/18 07:15 Albumin 3.6 gm/dL (4.2-5.5) L 06/03/18 07:15 Globulin 2.9 gm/dL 06/03/18 07:15 Albumin/Globulin Ratio 1.2 (1.0-1.8) 06/03/18 07:15 Urine Source RANDOM 06/01/18 17:00 Urine Color YELLOW 06/01/18 17:00 Urine Clarity CLEAR (CLEAR) 06/01/18 17:00 Urine pH 7.0 (4.6 - 8.0) 06/01/18 17:00 Ur Specific [place] 1.010 (1.005-1.030) 06/01/18 17:00 Urine Protein NEGATIVE mg/dL (NEGATIVE) 06/01/18 17:00 Urine Glucose (UA) NEGATIVE mg/dL (NEGATIVE) 06/01/18 17:00 Urine Ketones NEGATIVE mg/dL (NEGATIVE) 06/01/18 17:00 Urine Blood TRACE (NEGATIVE) 06/01/18 17:00 Urine Nitrate NEGATIVE (NEGATIVE) 06/01/18 17:00 Urine Bilirubin NEGATIVE (NEGATIVE) 06/01/18 17:00 Urine Urobilinogen 0.2 E.U./dL (0.2 - 1.0) 06/01/18 17:00 Ur Leukocyte Esterase NEGATIVE (NEGATIVE) 06/01/18 17:00 Urine RBC 0-2 /hpf (0-5) H 06/01/18 17:00 Urine WBC 0-2 /hpf (0-5) 06/01/18 17:00 Ur Epithelial Cells FEW /lpf (FEW) 06/01/18 17:00 Urine Bacteria OCCASIONAL /hpf (NONE SEEN) 06/01/18 17:00 - Physical Exam Vitals and I&O: Vital Signs Temp 96.8 F 06/03/18 12:00 Pulse 91 06/03/18 13:00 Resp 16 06/03/18 13:00 BP 133/77 06/03/18 13:00 Pulse Ox 98 06/03/18 12:00 Intake & Output 06/02/18 06/03/18 06/03/18 18:59 06:59 18:59 Intake Total 800 1100 100 Output Total 1300 800 Balance -500 300 100 Weight (lbs) 83.915 kg 83.915 kg Intake: Intake, IV Amount 200 1100 100 D5-0.45NS 1,000 ml @ 50 1000 mls/hr IV .Q20H [facility] Rx#: [id number] Doxycycline Hyclate 100 100 100 100 mg In Dextrose 5% 100 ml @ 100 mls/hr IV Q12H [facility] Rx#:[id number] Piperacillin Sodium/ 100 Tazobact 3.375 gm In Sodium Chloride 0.9% 50 ml @ 100 mls/hr IV Q8H [facility] Rx#:[id number] Tube Feeding 400 Other 200 Output: Urine 1300 800 Other: Weight Source Bedscale Bedscale Active Medications: Current Medications Acetaminophen (Tylenol 650mg/20.3ml Suspension) 650 mg GT Q6H PRN PRN Reason: MILD PAIN OR TEMP >100.5 Stop: 07/31/18 08:49 Acetaminophen (Tylenol Extra Strength) 500 mg PO Q8H PRN PRN Reason: MOD/SEVERE PAIN Stop: 07/31/18 08:49 Albuterol Sulfate (Albuterol 2.5mg/3ml Neb Ud) 2.5 mg HHN BIDRT PRN PRN Reason: Wheezing Stop: 07/31/18 08:49 Last Admin: 06/02/18 21:45 Dose: 2.5 mg Ascorbic Acid (Vitamin C) 500 mg GT DAILY [facility] Stop: 07/31/18 08:59 Last Admin: 06/03/18 08:39 Dose: 500 mg Aspirin (Aspirin Chewable) 81 mg GT DAILY [facility] Stop: 07/31/18 08:59 Last Admin: 06/03/18 08:39 Dose: 81 mg Bisacodyl (Dulcolax 10 Mg Supp) 10 mg RC DAILY PRN PRN Reason: IF MOM INEFFECTIVE Stop: 07/31/18 08:49 Calamine/Phenol (Calmoseptine) 1 appl TP BID [facility] Stop: 07/31/18 08:59 Last Admin: 06/03/18 08:40 Dose: 1 appl Docusate Sodium (Colace) 100 mg PO BID [facility] Stop: 07/31/18 08:59 Last Admin: 06/03/18 08:39 Dose: 100 mg Ferrous Sulfate (Iron) 300 mg PO DAILY [facility] Stop: 07/31/18 08:59 Last Admin: 06/03/18 08:39 Dose: 300 mg Dextrose/Sodium Chloride (D5-0.45ns) 1,000 mls @ 50 mls/hr IV .Q20H [facility] Stop: 07/31/18 07:59 Last Admin: 06/03/18 05:18 Dose: 50 mls/hr Doxycycline Hyclate 100 mg/ (Dextrose) 100 mls @ 100 mls/hr IV Q12H [facility] Stop: 07/31/18 21:59 Last Infusion: 06/03/18 11:20 Dose: Infused Piperacillin Sod/Tazobactam (Sod 3.375 gm/ Sodium Chloride) 50 mls @ 100 mls/ hr IV Q8HR [facility] Stop: 08/02/18 12:59 Last Admin: 06/03/18 14:11 Dose: 100 mls/hr Insulin Aspart (Novolog Insulin Sliding Scale) 0 units SUBQ Q6HR [facility]; Protocol Stop: 07/31/18 11:59 Last Admin: 06/03/18 11:39 Dose: Not Given Lactobacillus Rhamnosus (Culturelle 15b) 1 each PO DAILY [facility] Stop: 08/02/18 13:59 Last Admin: 06/03/18 14:11 Dose: 1 each Lorazepam (Ativan) 2 mg IVP Q4H PRN; Protocol PRN Reason: Agitation Stop: 07/31/18 09:35 Last Admin: 06/03/18 06:45 Dose: 2 mg Magnesium Hydroxide (Milk Of Magnesia) 30 ml GT HS PRN PRN Reason: Constipation Stop: 07/31/18 08:49 Midodrine (Proamatine) 5 mg GT TID [facility] Stop: 07/31/18 08:59 Last Admin: 06/03/18 14:11 Dose: 5 mg Miscellaneous (Probiotic Screen) 1 ea MC PRN PRN PRN Reason: PROTOCOL Stop: 08/02/18 12:18 Mupirocin (Bactroban Oint) 1 appl NS BID [facility] Stop: 06/07/18 17:01 Last Admin: 06/03/18 08:43 Dose: 1 appl Ondansetron HCl (Zofran Odt) 4 mg PO Q6H PRN PRN Reason: Nausea / Vomiting Stop: 07/31/18 08:49 Pantoprazole Sodium (Protonix) 40 mg GT QDAC [facility] Stop: 08/01/18 07:29 Last Admin: 06/03/18 06:46 Dose: 40 mg Pioglitazone HCl (Actos) 15 mg GT DAILY [facility] Stop: 07/31/18 08:59 Last Admin: 06/03/18 08:39 Dose: 15 mg Potassium Chloride (Potassium Chloride Elixir) 20 meq GT DAILY [facility] Stop: 07/31/18 08:59 Last Admin: 06/03/18 08:48 Dose: 20 meq Quetiapine Fumarate 50 mg/ (Quetiapine Fumarate 25 mg) 75 mg GT TID [facility] Stop: 07/31/18 08:59 Last Admin: 06/03/18 14:11 Dose: 75 mg Senna (Senna) 8.6 mg GT DAILY [facility] Stop: 07/31/18 08:59 Last Admin: 06/03/18 08:40 Dose: 8.6 mg Sodium Phosphate (Fleet Enema) 135 ml RC Q48H PRN PRN Reason: IF DULCOLAX INEFFECTIVE Stop: 07/31/18 08:49 Topiramate (Topamax) 150 mg GT DAILY [facility] Stop: 07/31/18 08:59 Last Admin: 06/03/18 08:40 Dose: 150 mg Zolpidem Tartrate (Ambien) 5 mg GT HS PRN PRN Reason: Insomnia Stop: 07/31/18 08:49
[2018-06-03] MEDS: Albuterol Nebulizer 2.5mg/3mL HHN PRN (16:32)
--- NOTE | 2018-06-03 21:39 | GI Progress Note ---
Subjective - Review of Systems Service Date: 06/03/18 Subjective: no events, in no condition to pass any swallow evaluation, sedated Objective - Results Result Diagrams: 06/01/18 03:10 06/03/18 07:15 Recent Labs: Laboratory Last Values WBC 11.1 Th/cmm (4.8-10.8) H 06/01/18 03:10 RBC 4.30 Mil/cmm (4.30-5.70) 06/01/18 03:10 Hgb 12.3 gm/dL (12-16) 06/01/18 03:10 Hct 37.8 % (41.0-60) L 06/01/18 03:10 MCV 88.0 fl (80-99) 06/01/18 03:10 MCH 28.5 pg (26.0-30.0) 06/01/18 03:10 MCHC Differential 32.4 pg (28.0-36.0) 06/01/18 03:10 RDW 15.1 % (11.5-20.0) 06/01/18 03:10 Plt Count 315 Th/cmm (150-400) 06/01/18 03:10 MPV 7.2 fl 06/01/18 03:10 Neutrophils % 69.1 % (40.0-80.0) 06/01/18 03:10 Lymphocytes % 15.7 % (20.0-50.0) L 06/01/18 03:10 Monocytes % 7.4 % (2.0-10.0) 06/01/18 03:10 Eosinophils % 6.9 % (0.0-5.0) H 06/01/18 03:10 Basophils % 0.9 % (0.0-2.0) 06/01/18 03:10 Sodium 137 mEq/L (136-145) 06/03/18 07:15 Potassium 4.1 mEq/L (3.5-5.1) 06/03/18 07:15 Chloride 108 mEq/L (98-107) H 06/03/18 07:15 Carbon Dioxide 23.9 mEq/L (21.0-31.0) 06/03/18 07:15 Anion Gap 9.2 (7.0-16.0) 06/03/18 07:15 BUN 8 mg/dL (7-25) 06/03/18 07:15 Creatinine 0.8 mg/dL (0.7-1.3) 06/03/18 07:15 Est GFR ( Amer) > 60.0 ml/min (>90) 06/03/18 07:15 Est GFR (Non-Af Amer) > 60.0 ml/min 06/03/18 07:15 BUN/Creatinine Ratio 10.0 06/03/18 07:15 Glucose 118 mg/dL (70-105) H 06/03/18 07:15 POC Glucose 123 MG/DL (70 - 105) H 06/03/18 17:38 Calcium 9.0 mg/dL (8.6-10.3) 06/03/18 07:15 Total Bilirubin 0.3 mg/dL (0.3-1.0) 06/03/18 07:15 AST 13 U/L (13-39) 06/03/18 07:15 ALT 9 U/L (7-52) 06/03/18 07:15 Alkaline Phosphatase 95 U/L (34-104) 06/03/18 07:15 Troponin I 0.01 ng/mL (0.01-0.05) 06/01/18 03:10 Total Protein 6.5 gm/dL (6.0-8.3) 06/03/18 07:15 Albumin 3.6 gm/dL (4.2-5.5) L 06/03/18 07:15 Globulin 2.9 gm/dL 06/03/18 07:15 Albumin/Globulin Ratio 1.2 (1.0-1.8) 06/03/18 07:15 Urine Source RANDOM 06/01/18 17:00 Urine Color YELLOW 06/01/18 17:00 Urine Clarity CLEAR (CLEAR) 06/01/18 17:00 Urine pH 7.0 (4.6 - 8.0) 06/01/18 17:00 Ur Specific [place] 1.010 (1.005-1.030) 06/01/18 17:00 Urine Protein NEGATIVE mg/dL (NEGATIVE) 06/01/18 17:00 Urine Glucose (UA) NEGATIVE mg/dL (NEGATIVE) 06/01/18 17:00 Urine Ketones NEGATIVE mg/dL (NEGATIVE) 06/01/18 17:00 Urine Blood TRACE (NEGATIVE) 06/01/18 17:00 Urine Nitrate NEGATIVE (NEGATIVE) 06/01/18 17:00 Urine Bilirubin NEGATIVE (NEGATIVE) 06/01/18 17:00 Urine Urobilinogen 0.2 E.U./dL (0.2 - 1.0) 06/01/18 17:00 Ur Leukocyte Esterase NEGATIVE (NEGATIVE) 06/01/18 17:00 Urine RBC 0-2 /hpf (0-5) H 06/01/18 17:00 Urine WBC 0-2 /hpf (0-5) 06/01/18 17:00 Ur Epithelial Cells FEW /lpf (FEW) 06/01/18 17:00 Urine Bacteria OCCASIONAL /hpf (NONE SEEN) 06/01/18 17:00 - Physical Exam Vitals and I&O: Vital Signs Temp 98.3 F 06/03/18 20:00 Pulse 88 06/03/18 20:00 Resp 22 06/03/18 20:00 BP 112/73 06/03/18 20:00 Pulse Ox 99 06/03/18 20:00 Intake & Output 06/03/18 06/03/18 06/04/18 06:59 18:59 06:59 Intake Total 1100 900 Output Total 800 1450 Balance 300 -550 Weight (lbs) 83.915 kg 83.915 kg Intake: Intake, IV Amount 1100 150 D5-0.45NS 1,000 ml @ 50 1000 mls/hr IV .Q20H [facility] Rx#: [id number] Doxycycline Hyclate 100 100 100 mg In Dextrose 5% 100 ml @ 100 mls/hr IV Q12H [facility] Rx#:[id number] Piperacillin Sodium/ 50 Tazobact 3.375 gm In Sodium Chloride 0.9% 50 ml @ 100 mls/hr IV Q8HR [facility] Rx#:[id number] Tube Feeding 600 Other 150 Output: Urine 800 1450 Other: # Bowel Movements 0 Weight Source Bedscale Bedscale Active Medications: Current Medications Acetaminophen (Tylenol 650mg/20.3ml Suspension) 650 mg GT Q6H PRN PRN Reason: MILD PAIN OR TEMP >100.5 Stop: 07/31/18 08:49 Acetaminophen (Tylenol Extra Strength) 500 mg PO Q8H PRN PRN Reason: MOD/SEVERE PAIN Stop: 07/31/18 08:49 Albuterol Sulfate (Albuterol 2.5mg/3ml Neb Ud) 2.5 mg HHN BIDRT PRN PRN Reason: Wheezing Stop: 07/31/18 08:49 Last Admin: 06/03/18 16:32 Dose: 2.5 mg Ascorbic Acid (Vitamin C) 500 mg GT DAILY [facility] Stop: 07/31/18 08:59 Last Admin: 06/03/18 08:39 Dose: 500 mg Aspirin (Aspirin Chewable) 81 mg GT DAILY [facility] Stop: 07/31/18 08:59 Last Admin: 06/03/18 08:39 Dose: 81 mg Bisacodyl (Dulcolax 10 Mg Supp) 10 mg RC DAILY PRN PRN Reason: IF MOM INEFFECTIVE Stop: 07/31/18 08:49 Calamine/Phenol (Calmoseptine) 1 appl TP BID [facility] Stop: 07/31/18 08:59 Last Admin: 06/03/18 16:36 Dose: 1 appl Docusate Sodium (Colace) 100 mg PO BID [facility] Stop: 07/31/18 08:59 Last Admin: 06/03/18 16:36 Dose: 100 mg Ferrous Sulfate (Iron) 300 mg PO DAILY [facility] Stop: 07/31/18 08:59 Last Admin: 06/03/18 08:39 Dose: 300 mg Dextrose/Sodium Chloride (D5-0.45ns) 1,000 mls @ 50 mls/hr IV .Q20H [facility] Stop: 07/31/18 07:59 Last Admin: 06/03/18 05:18 Dose: 50 mls/hr Doxycycline Hyclate 100 mg/ (Dextrose) 100 mls @ 100 mls/hr IV Q12H [facility] Stop: 07/31/18 21:59 Last Infusion: 06/03/18 11:20 Dose: Infused Piperacillin Sod/Tazobactam (Sod 3.375 gm/ Sodium Chloride) 50 mls @ 100 mls/ hr IV Q8HR [facility] Stop: 08/02/18 12:59 Last Admin: 06/03/18 20:30 Dose: 100 mls/hr Insulin Aspart (Novolog Insulin Sliding Scale) 0 units SUBQ Q6HR [facility]; Protocol Stop: 07/31/18 11:59 Last Admin: 06/03/18 17:39 Dose: Not Given Lactobacillus Rhamnosus (Culturelle 15b) 1 each PO DAILY [facility] Stop: 08/02/18 13:59 Last Admin: 06/03/18 14:11 Dose: 1 each Lorazepam (Ativan) 2 mg IVP Q4H [facility]; Protocol PRN Reason: Agitation Stop: 07/31/18 09:35 Last Admin: 06/03/18 06:45 Dose: 2 mg Magnesium Hydroxide (Milk Of Magnesia) 30 ml GT HS PRN PRN Reason: Constipation Stop: 07/31/18 08:49 Midodrine (Proamatine) 5 mg GT TID [facility] Stop: 07/31/18 08:59 Last Admin: 06/03/18 20:30 Dose: 5 mg Miscellaneous (Probiotic Screen) 1 ea MC PRN PRN PRN Reason: PROTOCOL Stop: 08/02/18 12:18 Mupirocin (Bactroban Oint) 1 appl NS BID [facility] Stop: 06/07/18 17:01 Last Admin: 06/03/18 16:36 Dose: 1 appl Ondansetron HCl (Zofran Odt) 4 mg PO Q6H PRN PRN Reason: Nausea / Vomiting Stop: 07/31/18 08:49 Pantoprazole Sodium (Protonix) 40 mg GT QDAC [facility] Stop: 08/01/18 07:29 Last Admin: 06/03/18 06:46 Dose: 40 mg Pioglitazone HCl (Actos) 15 mg GT DAILY [facility] Stop: 07/31/18 08:59 Last Admin: 06/03/18 08:39 Dose: 15 mg Potassium Chloride (Potassium Chloride Elixir) 20 meq GT DAILY [facility] Stop: 07/31/18 08:59 Last Admin: 06/03/18 08:48 Dose: 20 meq Quetiapine Fumarate 50 mg/ (Quetiapine Fumarate 25 mg) 75 mg GT TID [facility] Stop: 07/31/18 08:59 Last Admin: 06/03/18 20:30 Dose: 75 mg Senna (Senna) 8.6 mg GT DAILY [facility] Stop: 07/31/18 08:59 Last Admin: 06/03/18 08:40 Dose: 8.6 mg Sodium Phosphate (Fleet Enema) 135 ml RC Q48H PRN PRN Reason: IF DULCOLAX INEFFECTIVE Stop: 07/31/18 08:49 Topiramate (Topamax) 150 mg GT DAILY [facility] Stop: 07/31/18 08:59 Last Admin: 06/03/18 08:40 Dose: 150 mg Zolpidem Tartrate (Ambien) 5 mg GT HS PRN PRN Reason: Insomnia Stop: 07/31/18 08:49 General: Alert, Oriented x3, Mild distress (sedated , was combative earlier), Other HEENT: PERRLA, EOMI Neck: Supple Cardiovascular: Regular rate, Normal S1, Normal S2 Lungs: Clear to auscultation Abdomen: Bowel sounds, Soft Assessment/Plan - Assessment Assessment: 1. G tube dependant 2. Psychiatric history -Plan for swallow evaluation and if able to pass will pull G tube and send to psych -Please contact Gi when patient is able to succesffuly complete swallow test
[2018-06-04] MEDS: INSULIN ASPART SLIDING SCALE 100 UNITS/ML UNIT SUBQ SCH ×4 (00:11→17:33)
[2018-06-04] MEDS: D5-0.45NS 1,000 ML IV SCH ×2 (05:15→23:50)
[2018-06-04] MEDS: Pantoprazole 40 mg/Packet GT SCH (06:36)
--- NOTE | 2018-06-04 09:05 | GI Progress Note ---
Subjective - Review of Systems Service Date: 06/04/18 Subjective: Mumbling, not coherent. No overnight events Objective - Results Result Diagrams: 06/01/18 03:10 06/03/18 07:15 Recent Labs: Laboratory Last Values WBC 11.1 Th/cmm (4.8-10.8) H 06/01/18 03:10 RBC 4.30 Mil/cmm (4.30-5.70) 06/01/18 03:10 Hgb 12.3 gm/dL (12-16) 06/01/18 03:10 Hct 37.8 % (41.0-60) L 06/01/18 03:10 MCV 88.0 fl (80-99) 06/01/18 03:10 MCH 28.5 pg (26.0-30.0) 06/01/18 03:10 MCHC Differential 32.4 pg (28.0-36.0) 06/01/18 03:10 RDW 15.1 % (11.5-20.0) 06/01/18 03:10 Plt Count 315 Th/cmm (150-400) 06/01/18 03:10 MPV 7.2 fl 06/01/18 03:10 Neutrophils % 69.1 % (40.0-80.0) 06/01/18 03:10 Lymphocytes % 15.7 % (20.0-50.0) L 06/01/18 03:10 Monocytes % 7.4 % (2.0-10.0) 06/01/18 03:10 Eosinophils % 6.9 % (0.0-5.0) H 06/01/18 03:10 Basophils % 0.9 % (0.0-2.0) 06/01/18 03:10 Sodium 137 mEq/L (136-145) 06/03/18 07:15 Potassium 4.1 mEq/L (3.5-5.1) 06/03/18 07:15 Chloride 108 mEq/L (98-107) H 06/03/18 07:15 Carbon Dioxide 23.9 mEq/L (21.0-31.0) 06/03/18 07:15 Anion Gap 9.2 (7.0-16.0) 06/03/18 07:15 BUN 8 mg/dL (7-25) 06/03/18 07:15 Creatinine 0.8 mg/dL (0.7-1.3) 06/03/18 07:15 Est GFR ( Amer) > 60.0 ml/min (>90) 06/03/18 07:15 Est GFR (Non-Af Amer) > 60.0 ml/min 06/03/18 07:15 BUN/Creatinine Ratio 10.0 06/03/18 07:15 Glucose 118 mg/dL (70-105) H 06/03/18 07:15 POC Glucose 123 MG/DL (70 - 105) H 06/03/18 17:38 Calcium 9.0 mg/dL (8.6-10.3) 06/03/18 07:15 Total Bilirubin 0.3 mg/dL (0.3-1.0) 06/03/18 07:15 AST 13 U/L (13-39) 06/03/18 07:15 ALT 9 U/L (7-52) 06/03/18 07:15 Alkaline Phosphatase 95 U/L (34-104) 06/03/18 07:15 Troponin I 0.01 ng/mL (0.01-0.05) 06/01/18 03:10 Total Protein 6.5 gm/dL (6.0-8.3) 06/03/18 07:15 Albumin 3.6 gm/dL (4.2-5.5) L 06/03/18 07:15 Globulin 2.9 gm/dL 06/03/18 07:15 Albumin/Globulin Ratio 1.2 (1.0-1.8) 06/03/18 07:15 Urine Source RANDOM 06/01/18 17:00 Urine Color YELLOW 06/01/18 17:00 Urine Clarity CLEAR (CLEAR) 06/01/18 17:00 Urine pH 7.0 (4.6 - 8.0) 06/01/18 17:00 Ur Specific [place] 1.010 (1.005-1.030) 06/01/18 17:00 Urine Protein NEGATIVE mg/dL (NEGATIVE) 06/01/18 17:00 Urine Glucose (UA) NEGATIVE mg/dL (NEGATIVE) 06/01/18 17:00 Urine Ketones NEGATIVE mg/dL (NEGATIVE) 06/01/18 17:00 Urine Blood TRACE (NEGATIVE) 06/01/18 17:00 Urine Nitrate NEGATIVE (NEGATIVE) 06/01/18 17:00 Urine Bilirubin NEGATIVE (NEGATIVE) 06/01/18 17:00 Urine Urobilinogen 0.2 E.U./dL (0.2 - 1.0) 06/01/18 17:00 Ur Leukocyte Esterase NEGATIVE (NEGATIVE) 06/01/18 17:00 Urine RBC 0-2 /hpf (0-5) H 06/01/18 17:00 Urine WBC 0-2 /hpf (0-5) 06/01/18 17:00 Ur Epithelial Cells FEW /lpf (FEW) 06/01/18 17:00 Urine Bacteria OCCASIONAL /hpf (NONE SEEN) 06/01/18 17:00 - Physical Exam Vitals and I&O: Vital Signs Temp 97.9 F 06/04/18 06:06 Pulse 84 06/04/18 07:33 Resp 18 06/04/18 08:35 BP 144/93 06/04/18 06:06 Pulse Ox 99 06/04/18 07:33 Intake & Output 06/03/18 06/04/18 06/04/18 18:59 06:59 18:59 Intake Total 900 1150 Output Total 1450 650 Balance -550 500 Weight (lbs) 83.915 kg 93.213 kg Intake: Intake, IV Amount 150 1150 D5-0.45NS 1,000 ml @ 50 1000 mls/hr IV .Q20H [facility] Rx#: [id number] Doxycycline Hyclate 100 100 100 mg In Dextrose 5% 100 ml @ 100 mls/hr IV Q12H [facility] Rx#:[id number] Piperacillin Sodium/ 50 50 Tazobact 3.375 gm In Sodium Chloride 0.9% 50 ml @ 100 mls/hr IV Q8HR [facility] Rx#:[id number] Tube Feeding 600 Other 150 Output: Urine 1450 650 Other: # Bowel Movements 0 0 Weight Source Bedscale Bedscale Active Medications: Current Medications Acetaminophen (Tylenol 650mg/20.3ml Suspension) 650 mg GT Q6H PRN PRN Reason: MILD PAIN OR TEMP >100.5 Stop: 07/31/18 08:49 Acetaminophen (Tylenol Extra Strength) 500 mg PO Q8H PRN PRN Reason: MOD/SEVERE PAIN Stop: 07/31/18 08:49 Albuterol Sulfate (Albuterol 2.5mg/3ml Neb Ud) 2.5 mg HHN BIDRT PRN PRN Reason: Wheezing Stop: 07/31/18 08:49 Last Admin: 06/03/18 16:32 Dose: 2.5 mg Ascorbic Acid (Vitamin C) 500 mg GT DAILY [facility] Stop: 07/31/18 08:59 Last Admin: 06/03/18 08:39 Dose: 500 mg Aspirin (Aspirin Chewable) 81 mg GT DAILY [facility] Stop: 07/31/18 08:59 Last Admin: 06/03/18 08:39 Dose: 81 mg Bisacodyl (Dulcolax 10 Mg Supp) 10 mg RC DAILY PRN PRN Reason: IF MOM INEFFECTIVE Stop: 07/31/18 08:49 Calamine/Phenol (Calmoseptine) 1 appl TP BID [facility] Stop: 07/31/18 08:59 Last Admin: 06/03/18 16:36 Dose: 1 appl Docusate Sodium (Colace) 100 mg PO BID [facility] Stop: 07/31/18 08:59 Last Admin: 06/03/18 16:36 Dose: 100 mg Ferrous Sulfate (Iron) 300 mg PO DAILY [facility] Stop: 07/31/18 08:59 Last Admin: 06/03/18 08:39 Dose: 300 mg Dextrose/Sodium Chloride (D5-0.45ns) 1,000 mls @ 50 mls/hr IV .Q20H [facility] Stop: 07/31/18 07:59 Last Admin: 06/04/18 05:15 Dose: 50 mls/hr Doxycycline Hyclate 100 mg/ (Dextrose) 100 mls @ 100 mls/hr IV Q12H [facility] Stop: 07/31/18 21:59 Last Infusion: 06/04/18 01:05 Dose: Infused Piperacillin Sod/Tazobactam (Sod 3.375 gm/ Sodium Chloride) 50 mls @ 100 mls/ hr IV Q8HR [facility] Stop: 08/02/18 12:59 Last Admin: 06/04/18 05:26 Dose: 100 mls/hr Insulin Aspart (Novolog Insulin Sliding Scale) 0 units SUBQ Q6HR [facility]; Protocol Stop: 07/31/18 11:59 Last Admin: 06/04/18 05:30 Dose: Not Given Lactobacillus Rhamnosus (Culturelle 15b) 1 each PO DAILY [facility] Stop: 08/02/18 13:59 Last Admin: 06/03/18 14:11 Dose: 1 each Lorazepam (Ativan) 2 mg IVP Q4H PRN; Protocol PRN Reason: Agitation Stop: 07/31/18 09:35 Last Admin: 06/04/18 06:54 Dose: 2 mg Magnesium Hydroxide (Milk Of Magnesia) 30 ml GT HS PRN PRN Reason: Constipation Stop: 07/31/18 08:49 Midodrine (Proamatine) 5 mg GT TID [facility] Stop: 07/31/18 08:59 Last Admin: 06/03/18 20:30 Dose: 5 mg Miscellaneous (Probiotic Screen) 1 ea MC PRN PRN PRN Reason: PROTOCOL Stop: 08/02/18 12:18 Mupirocin (Bactroban Oint) 1 appl NS BID [facility] Stop: 06/07/18 17:01 Last Admin: 06/03/18 16:36 Dose: 1 appl Ondansetron HCl (Zofran Odt) 4 mg PO Q6H PRN PRN Reason: Nausea / Vomiting Stop: 07/31/18 08:49 Pantoprazole Sodium (Protonix) 40 mg GT QDAC [facility] Stop: 08/01/18 07:29 Last Admin: 06/04/18 06:36 Dose: 40 mg Pioglitazone HCl (Actos) 15 mg GT DAILY [facility] Stop: 07/31/18 08:59 Last Admin: 06/03/18 08:39 Dose: 15 mg Potassium Chloride (Potassium Chloride Elixir) 20 meq GT DAILY [facility] Stop: 07/31/18 08:59 Last Admin: 06/03/18 08:48 Dose: 20 meq Quetiapine Fumarate 50 mg/ (Quetiapine Fumarate 25 mg) 75 mg GT TID [facility] Stop: 07/31/18 08:59 Last Admin: 06/03/18 20:30 Dose: 75 mg Senna (Senna) 8.6 mg GT DAILY [facility] Stop: 07/31/18 08:59 Last Admin: 06/03/18 08:40 Dose: 8.6 mg Sodium Phosphate (Fleet Enema) 135 ml RC Q48H PRN PRN Reason: IF DULCOLAX INEFFECTIVE Stop: 07/31/18 08:49 Topiramate (Topamax) 150 mg GT DAILY [facility] Stop: 07/31/18 08:59 Last Admin: 06/03/18 08:40 Dose: 150 mg Zolpidem Tartrate (Ambien) 5 mg GT HS PRN PRN Reason: Insomnia Stop: 07/31/18 08:49 Last Admin: 06/04/18 03:23 Dose: 5 mg General: Alert, Mild distress (sedated , was combative earlier), Other HEENT: PERRLA, EOMI Neck: Supple Cardiovascular: Regular rate Abdomen: Bowel sounds, Soft, no Tender, no Hepatomegaly, no Splenomegaly, no Distended, no Rebound, no Mass Extremities: no Cyanosis Psych/Mental Status: no Mental status NL Assessment/Plan - Assessment Assessment: 1. G tube dependant 2. Psychiatric history Swallow eval reports high risk for aspiration, recommending pureed diet with nectar thick liquids. I would not recommend pulling G tube in the patient, as he has high aspiration risk, and he also likely will not voluntarily consume enough calories by mouth. He would likely need replacement G tube procedure in a short time span, which carried risk - long in a pt who has scar tissue from a previous tube Plan: - do not recommend pulling G tube as stated above - can attempt to count calories to see if he truly is taking in enough by mouth , doubtful
[2018-06-04] MEDS: Ferrous Sulfate 300 MG/5 ML UDC PO SCH (09:34)
[2018-06-04] MEDS: Aspirin 81mg Chewable Tab GT SCH (09:34)
[2018-06-04] MEDS: Lactobacillus Rhamnosus GG 15 Billion CFU CAP.SPRINK PO SCH (09:34)
[2018-06-04] MEDS: Potassium Chloride Elixir 20 mEq /15 mL UDC GT SCH (09:35)
[2018-06-04] MEDS: Menthol/Zinc Oxide Oint 113gm Tube TP SCH ×2 (09:37→17:22)
--- NOTE | 2018-06-04 13:35 | Internal Medicine Prog Note ---
Internal Medicine Subjective - Subjective Service Date: 06/04/18 Patient seen and examined:: with staff Patient is:: awake, confused Per staff patient has:: tolerating meds Internal Medicine Objective - Results Result Diagrams: 06/01/18 03:10 06/03/18 07:15 Recent Labs: Laboratory Last Values WBC 11.1 Th/cmm (4.8-10.8) H 06/01/18 03:10 RBC 4.30 Mil/cmm (4.30-5.70) 06/01/18 03:10 Hgb 12.3 gm/dL (12-16) 06/01/18 03:10 Hct 37.8 % (41.0-60) L 06/01/18 03:10 MCV 88.0 fl (80-99) 06/01/18 03:10 MCH 28.5 pg (26.0-30.0) 06/01/18 03:10 MCHC Differential 32.4 pg (28.0-36.0) 06/01/18 03:10 RDW 15.1 % (11.5-20.0) 06/01/18 03:10 Plt Count 315 Th/cmm (150-400) 06/01/18 03:10 MPV 7.2 fl 06/01/18 03:10 Neutrophils % 69.1 % (40.0-80.0) 06/01/18 03:10 Lymphocytes % 15.7 % (20.0-50.0) L 06/01/18 03:10 Monocytes % 7.4 % (2.0-10.0) 06/01/18 03:10 Eosinophils % 6.9 % (0.0-5.0) H 06/01/18 03:10 Basophils % 0.9 % (0.0-2.0) 06/01/18 03:10 Sodium 137 mEq/L (136-145) 06/03/18 07:15 Potassium 4.1 mEq/L (3.5-5.1) 06/03/18 07:15 Chloride 108 mEq/L (98-107) H 06/03/18 07:15 Carbon Dioxide 23.9 mEq/L (21.0-31.0) 06/03/18 07:15 Anion Gap 9.2 (7.0-16.0) 06/03/18 07:15 BUN 8 mg/dL (7-25) 06/03/18 07:15 Creatinine 0.8 mg/dL (0.7-1.3) 06/03/18 07:15 Est GFR ( Amer) > 60.0 ml/min (>90) 06/03/18 07:15 Est GFR (Non-Af Amer) > 60.0 ml/min 06/03/18 07:15 BUN/Creatinine Ratio 10.0 06/03/18 07:15 Glucose 118 mg/dL (70-105) H 06/03/18 07:15 POC Glucose 143 MG/DL (70 - 105) H 06/04/18 12:57 Calcium 9.0 mg/dL (8.6-10.3) 06/03/18 07:15 Total Bilirubin 0.3 mg/dL (0.3-1.0) 06/03/18 07:15 AST 13 U/L (13-39) 06/03/18 07:15 ALT 9 U/L (7-52) 06/03/18 07:15 Alkaline Phosphatase 95 U/L (34-104) 06/03/18 07:15 Troponin I 0.01 ng/mL (0.01-0.05) 06/01/18 03:10 Total Protein 6.5 gm/dL (6.0-8.3) 06/03/18 07:15 Albumin 3.6 gm/dL (4.2-5.5) L 06/03/18 07:15 Globulin 2.9 gm/dL 06/03/18 07:15 Albumin/Globulin Ratio 1.2 (1.0-1.8) 06/03/18 07:15 Urine Source RANDOM 06/01/18 17:00 Urine Color YELLOW 06/01/18 17:00 Urine Clarity CLEAR (CLEAR) 06/01/18 17:00 Urine pH 7.0 (4.6 - 8.0) 06/01/18 17:00 Ur Specific [place] 1.010 (1.005-1.030) 06/01/18 17:00 Urine Protein NEGATIVE mg/dL (NEGATIVE) 06/01/18 17:00 Urine Glucose (UA) NEGATIVE mg/dL (NEGATIVE) 06/01/18 17:00 Urine Ketones NEGATIVE mg/dL (NEGATIVE) 06/01/18 17:00 Urine Blood TRACE (NEGATIVE) 06/01/18 17:00 Urine Nitrate NEGATIVE (NEGATIVE) 06/01/18 17:00 Urine Bilirubin NEGATIVE (NEGATIVE) 06/01/18 17:00 Urine Urobilinogen 0.2 E.U./dL (0.2 - 1.0) 06/01/18 17:00 Ur Leukocyte Esterase NEGATIVE (NEGATIVE) 06/01/18 17:00 Urine RBC 0-2 /hpf (0-5) H 06/01/18 17:00 Urine WBC 0-2 /hpf (0-5) 06/01/18 17:00 Ur Epithelial Cells FEW /lpf (FEW) 06/01/18 17:00 Urine Bacteria OCCASIONAL /hpf (NONE SEEN) 06/01/18 17:00 - Physical Exam Vitals and I&O: Vital Signs Temp 97.9 F 06/04/18 06:06 Pulse 84 06/04/18 07:33 Resp 21 06/04/18 12:14 BP 144/93 06/04/18 06:06 Pulse Ox 99 06/04/18 07:33 Intake & Output 06/03/18 06/04/18 06/04/18 18:59 06:59 18:59 Intake Total 900 1150 Output Total 1450 650 Balance -550 500 Weight (lbs) 185 lb 205 lb 8 oz Intake: Intake, IV Amount 150 1150 D5-0.45NS 1,000 ml @ 50 1000 mls/hr IV .Q20H [facility] Rx#: [id number] Doxycycline Hyclate 100 100 100 mg In Dextrose 5% 100 ml @ 100 mls/hr IV Q12H [facility] Rx#:[id number] Piperacillin Sodium/ 50 50 Tazobact 3.375 gm In Sodium Chloride 0.9% 50 ml @ 100 mls/hr IV Q8HR [facility] Rx#:[id number] Tube Feeding 600 Other 150 Output: Urine 1450 650 Other: # Bowel Movements 0 0 Weight Source Bedscale Bedscale Active Medications: Current Medications Acetaminophen (Tylenol 650mg/20.3ml Suspension) 650 mg GT Q6H PRN PRN Reason: MILD PAIN OR TEMP >100.5 Stop: 07/31/18 08:49 Acetaminophen (Tylenol Extra Strength) 500 mg PO Q8H PRN PRN Reason: MOD/SEVERE PAIN Stop: 07/31/18 08:49 Albuterol Sulfate (Albuterol 2.5mg/3ml Neb Ud) 2.5 mg HHN BIDRT PRN PRN Reason: Wheezing Stop: 07/31/18 08:49 Last Admin: 06/03/18 16:32 Dose: 2.5 mg Ascorbic Acid (Vitamin C) 500 mg GT DAILY [facility] Stop: 07/31/18 08:59 Last Admin: 06/04/18 09:34 Dose: 500 mg Aspirin (Aspirin Chewable) 81 mg GT DAILY [facility] Stop: 07/31/18 08:59 Last Admin: 06/04/18 09:34 Dose: 81 mg Bisacodyl (Dulcolax 10 Mg Supp) 10 mg RC DAILY PRN PRN Reason: IF MOM INEFFECTIVE Stop: 07/31/18 08:49 Calamine/Phenol (Calmoseptine) 1 appl TP BID [facility] Stop: 07/31/18 08:59 Last Admin: 06/04/18 09:37 Dose: 1 appl Docusate Sodium (Colace) 100 mg PO BID [facility] Stop: 07/31/18 08:59 Last Admin: 06/04/18 09:34 Dose: 100 mg Ferrous Sulfate (Iron) 300 mg PO DAILY [facility] Stop: 07/31/18 08:59 Last Admin: 06/04/18 09:34 Dose: 300 mg Dextrose/Sodium Chloride (D5-0.45ns) 1,000 mls @ 50 mls/hr IV .Q20H [facility] Stop: 07/31/18 07:59 Last Admin: 06/04/18 05:15 Dose: 50 mls/hr Doxycycline Hyclate 100 mg/ (Dextrose) 100 mls @ 100 mls/hr IV Q12H [facility] Stop: 07/31/18 21:59 Last Admin: 06/04/18 09:42 Dose: 100 mls/hr Piperacillin Sod/Tazobactam (Sod 3.375 gm/ Sodium Chloride) 50 mls @ 100 mls/ hr IV Q8HR [facility] Stop: 08/02/18 12:59 Last Admin: 06/04/18 05:26 Dose: 100 mls/hr Insulin Aspart (Novolog Insulin Sliding Scale) 0 units SUBQ Q6HR [facility]; Protocol Stop: 07/31/18 11:59 Last Admin: 06/04/18 05:30 Dose: Not Given Lactobacillus Rhamnosus (Culturelle 15b) 1 each PO DAILY [facility] Stop: 08/02/18 13:59 Last Admin: 06/04/18 09:34 Dose: 1 each Lorazepam (Ativan) 2 mg IVP Q4H PRN; Protocol PRN Reason: Agitation Stop: 07/31/18 09:35 Last Admin: 06/04/18 06:54 Dose: 2 mg Magnesium Hydroxide (Milk Of Magnesia) 30 ml GT HS PRN PRN Reason: Constipation Stop: 07/31/18 08:49 Midodrine (Proamatine) 5 mg GT TID [facility] Stop: 07/31/18 08:59 Last Admin: 06/04/18 09:36 Dose: 5 mg Miscellaneous (Probiotic Screen) 1 ea MC PRN PRN PRN Reason: PROTOCOL Stop: 08/02/18 12:18 Mupirocin (Bactroban Oint) 1 appl NS BID [facility] Stop: 06/07/18 17:01 Last Admin: 06/04/18 09:37 Dose: 1 appl Ondansetron HCl (Zofran Odt) 4 mg PO Q6H PRN PRN Reason: Nausea / Vomiting Stop: 07/31/18 08:49 Pantoprazole Sodium (Protonix) 40 mg GT QDAC [facility] Stop: 08/01/18 07:29 Last Admin: 06/04/18 06:36 Dose: 40 mg Pioglitazone HCl (Actos) 15 mg GT DAILY [facility] Stop: 07/31/18 08:59 Last Admin: 06/04/18 09:35 Dose: 15 mg Potassium Chloride (Potassium Chloride Elixir) 20 meq GT DAILY [facility] Stop: 07/31/18 08:59 Last Admin: 06/04/18 09:35 Dose: 20 meq Quetiapine Fumarate 50 mg/ (Quetiapine Fumarate 25 mg) 75 mg GT TID [facility] Stop: 07/31/18 08:59 Last Admin: 06/04/18 09:35 Dose: 75 mg Senna (Senna) 8.6 mg GT DAILY [facility] Stop: 07/31/18 08:59 Last Admin: 06/04/18 09:36 Dose: 8.6 mg Sodium Phosphate (Fleet Enema) 135 ml RC Q48H PRN PRN Reason: IF DULCOLAX INEFFECTIVE Stop: 07/31/18 08:49 Topiramate (Topamax) 150 mg GT DAILY [facility] Stop: 07/31/18 08:59 Last Admin: 06/04/18 09:36 Dose: 150 mg Zolpidem Tartrate (Ambien) 5 mg GT HS PRN PRN Reason: Insomnia Stop: 07/31/18 08:49 Last Admin: 06/04/18 03:23 Dose: 5 mg General: weak, alert, demented HEENT: NC/AT, PERRLA Neck: Supple Lungs: CTAB Cardiovascular: RRR, Normal S1, Normal S2 Abdomen: soft, non-tender, non-distended, positive bowel sound Neurological: unable to follow command Internal Medicine Assmt/Plan - Assessment Assessment: Cellulitis Dementia Aggressive behavior dm2 peg status mrsa nares-treated - Plan Plan: ivabx as per id aspiration precautions follow up labs in am continue current plan of care Nutritional Asmnt/Malnutr-PDOC - Dietary Evaluation Malnutrition Findings (Please click <Entered> for more info): Nutritional Asmnt/Malnutrition Start: 06/03/18 17: 01 Text: Status: Complete Freq: Protocol: Document 06/03/18 17:04 LCHENG (Rec: 06/03/18 17:15 [email or web address] [id number]) Nutritional Asmnt/Malnutrition Patient General Information Diagnosis cellulitis Pertinent Medical Hx/Surgical Hx DM, seizure, cataract Subjective Information Pt seen resting in bed at time of visit. TF was running at 50ml/hr. Current Diet Order/ Nutrition Support glucerna 1.2 at 50ml/hr continuous Pertinent Medications vit C, D5-0.45ns, colace, iron , novolog, culturelle, protonix, piperacillin, kcl, senna Pertinent Labs 06/03 Cl 108, glucose 118, POC 109-120 Nutritional Hx/Data Height 5 ft 10 in Height (Calculated Centimeters) 177.8 Current Weight (lbs) 185 lb Weight (Calculated Kilograms) 83.9 Weight (Calculated Grams) [address]26.6 [place] Body Weight 172 Body Mass Index (BMI) 26.5 Weight Status Overweight GI Symptoms GI Symptoms None Last BM 06/01 Difficult in: None Usual diet at home pureed CCHO nectar thick liquid diet at care facility per chart Skin Integrity/Comment: abrasion to right knee, scab to LLE and RLE Estimated Nutritional Goals Calories/Kcals/Kg 23-27 based on IBW Kcals Calculated [id number] Protein g/k Protein Calculated 75 Fluid: ml 1725-2025ml (1ml/kcal) Nutritional Problem 1. Problem Problem altered nutrition related labs Etiology hx of DM Signs/Symptoms: glucose 115-118 Malnutrition Alert Is there a minimum of two criteria No selected? Query Text:Check all the applicable criteria. A minimum of two criteria are recommended for diagnosis of either severe or non-severe malnutrition. Malnutrition Related to Morbid Obesity Malnutrition related to morbid obesity No Intervention/Recommendation Comments 1. Continue with current TF regimen. It provides 1440kcal, 72g protein, 966ml free water , meeting about 85% of calorie needs and 100% of protein needs. 2. Monitor TF rate, tolerance, wt, skin integrity and labs 3. F/U as moderate risk in 3-5 days, 06/06-06/08 Expected Outcomes/Goals Expected Outcomes/Goals 1. Pt to meet at least 75% of nutritional needs via nutrition support with tolerance 2. Wt stability, skin to remain intact, labs to approach WNL.
[2018-06-05] MEDS: INSULIN ASPART SLIDING SCALE 100 UNITS/ML UNIT SUBQ SCH ×3 (00:39→13:05)
[2018-06-05 08:06] LABS: % BASOPHILS 0.3 % (0.0-2.0); % EOSINOPHILS 7.4 % (0.0-5.0); % LYMPHOCYTES 11.3 % (20.0-50.0); % MONOCYTES 8.5 % (2.0-10.0); % NEUTROPHILS 72.5 % (40.0-80.0); EOSINOPHILE ABSOLUTE 0.6 Th/cmm (0.1-0.4); HEMATOCRIT 40.8 % (41.0-60); HEMOGLOBIN 13.1 gm/dL (12-16); LYMPHOCYTE ABSOLUTE 0.9 Th/cmm (1.5-3.0); MEAN CELL VOLUME 87.9 fl (80-99); MEAN CORPUSCULAR HEMOGLOBIN 28.2 pg (26.0-30.0); MEAN CORPUSCULAR HGB CONC 32.1 pg (28.0-36.0); MEAN PLATELET VOLUME 7.8 fl; MONOCYTE ABSOLUTE 0.7 Th/cmm (0.3-1.0); NEUTROPHILE ABSOLUTE 5.8 Th/cmm (1.8-8.0); PLATELET COUNT 316 Th/cmm (150-400); RED BLOOD COUNT 4.65 Mil/cmm (4.30-5.70)
[2018-06-05 08:16] LABS: ANION GAP 10.9 (7.0-16.0); BUN - UREA NITROGEN 11 mg/dL (7-25); CALCIUM SERUM 9.1 mg/dL (8.6-10.3); CARBON DIOXIDE 25.1 mEq/L (21.0-31.0); CHLORIDE 104 mEq/L (98-107); CREATININE - SERUM 0.8 mg/dL (0.7-1.3); GFR AFRICAN-AMERICAN > 60.0 ml/min (>90); GFR NON AFRICAN-AMERICAN > 60.0 ml/min; GLUCOSE 120 mg/dL (70-105); SODIUM SERUM 136 mEq/L (136-145)
[2018-06-05] MEDS: Lactobacillus Rhamnosus GG 15 Billion CFU CAP.SPRINK PO SCH (08:40)
[2018-06-05] MEDS: Ferrous Sulfate 300 MG/5 ML UDC PO SCH (08:40)
[2018-06-05] MEDS: Pantoprazole 40 mg/Packet GT SCH (08:40)
[2018-06-05] MEDS: Aspirin 81mg Chewable Tab GT SCH (08:40)
[2018-06-05] MEDS: Potassium Chloride Elixir 20 mEq /15 mL UDC GT SCH (08:41)
[2018-06-05] MEDS: Menthol/Zinc Oxide Oint 113gm Tube TP SCH (08:47)
--- NOTE | 2018-06-05 09:02 | GI Progress Note ---
Subjective - Review of Systems Service Date: 06/05/18 Subjective: Currently being cleaned, mumbling to himself. Refused his meal yesterday Objective - Results Result Diagrams: 06/05/18 07:15 06/05/18 07:15 Recent Labs: Laboratory Last Values WBC 8.0 Th/cmm (4.8-10.8) 06/05/18 07:15 RBC 4.65 Mil/cmm (4.30-5.70) 06/05/18 07:15 Hgb 13.1 gm/dL (12-16) 06/05/18 07:15 Hct 40.8 % (41.0-60) L 06/05/18 07:15 MCV 87.9 fl (80-99) 06/05/18 07:15 MCH 28.2 pg (26.0-30.0) 06/05/18 07:15 MCHC Differential 32.1 pg (28.0-36.0) 06/05/18 07:15 RDW 15.0 % (11.5-20.0) 06/05/18 07:15 Plt Count 316 Th/cmm (150-400) 06/05/18 07:15 MPV 7.8 fl 06/05/18 07:15 Neutrophils % 72.5 % (40.0-80.0) 06/05/18 07:15 Lymphocytes % 11.3 % (20.0-50.0) L 06/05/18 07:15 Monocytes % 8.5 % (2.0-10.0) 06/05/18 07:15 Eosinophils % 7.4 % (0.0-5.0) H 06/05/18 07:15 Basophils % 0.3 % (0.0-2.0) 06/05/18 07:15 Sodium 136 mEq/L (136-145) 06/05/18 07:15 Potassium 4.0 mEq/L (3.5-5.1) 06/05/18 07:15 Chloride 104 mEq/L (98-107) 06/05/18 07:15 Carbon Dioxide 25.1 mEq/L (21.0-31.0) 06/05/18 07:15 Anion Gap 10.9 (7.0-16.0) 06/05/18 07:15 BUN 11 mg/dL (7-25) 06/05/18 07:15 Creatinine 0.8 mg/dL (0.7-1.3) 06/05/18 07:15 Est GFR ( Amer) > 60.0 ml/min (>90) 06/05/18 07:15 Est GFR (Non-Af Amer) > 60.0 ml/min 06/05/18 07:15 BUN/Creatinine Ratio 13.8 06/05/18 07:15 Glucose 120 mg/dL (70-105) H 06/05/18 07:15 POC Glucose 95 MG/DL (70 - 105) 06/05/18 05:11 Calcium 9.1 mg/dL (8.6-10.3) 06/05/18 07:15 Total Bilirubin 0.3 mg/dL (0.3-1.0) 06/03/18 07:15 AST 13 U/L (13-39) 06/03/18 07:15 ALT 9 U/L (7-52) 06/03/18 07:15 Alkaline Phosphatase 95 U/L (34-104) 06/03/18 07:15 Troponin I 0.01 ng/mL (0.01-0.05) 06/01/18 03:10 Total Protein 6.5 gm/dL (6.0-8.3) 06/03/18 07:15 Albumin 3.6 gm/dL (4.2-5.5) L 06/03/18 07:15 Globulin 2.9 gm/dL 06/03/18 07:15 Albumin/Globulin Ratio 1.2 (1.0-1.8) 06/03/18 07:15 Urine Source RANDOM 06/01/18 17:00 Urine Color YELLOW 06/01/18 17:00 Urine Clarity CLEAR (CLEAR) 06/01/18 17:00 Urine pH 7.0 (4.6 - 8.0) 06/01/18 17:00 Ur Specific [place] 1.010 (1.005-1.030) 06/01/18 17:00 Urine Protein NEGATIVE mg/dL (NEGATIVE) 06/01/18 17:00 Urine Glucose (UA) NEGATIVE mg/dL (NEGATIVE) 06/01/18 17:00 Urine Ketones NEGATIVE mg/dL (NEGATIVE) 06/01/18 17:00 Urine Blood TRACE (NEGATIVE) 06/01/18 17:00 Urine Nitrate NEGATIVE (NEGATIVE) 06/01/18 17:00 Urine Bilirubin NEGATIVE (NEGATIVE) 06/01/18 17:00 Urine Urobilinogen 0.2 E.U./dL (0.2 - 1.0) 06/01/18 17:00 Ur Leukocyte Esterase NEGATIVE (NEGATIVE) 06/01/18 17:00 Urine RBC 0-2 /hpf (0-5) H 06/01/18 17:00 Urine WBC 0-2 /hpf (0-5) 06/01/18 17:00 Ur Epithelial Cells FEW /lpf (FEW) 06/01/18 17:00 Urine Bacteria OCCASIONAL /hpf (NONE SEEN) 06/01/18 17:00 - Physical Exam Vitals and I&O: Vital Signs Temp 98.4 F 06/05/18 06:00 Pulse 86 06/05/18 07:07 Resp 18 06/05/18 07:07 BP 139/86 06/05/18 06:00 Pulse Ox 98 06/05/18 07:07 Intake & Output 06/04/18 06/05/18 06/05/18 18:59 06:59 18:59 Intake Total 150 1789.167 Output Total 1251 700 Balance -1101 1089.167 Weight (lbs) 92.986 kg 93.168 kg Intake: Intake, IV Amount 150 1129.167 D5-0.45NS 1,000 ml @ 50 929.167 mls/hr IV .Q20H [facility] Rx#: [id number] Doxycycline Hyclate 100 100 100 mg In Dextrose 5% 100 ml @ 100 mls/hr IV Q12H [facility] Rx#:[id number] Piperacillin Sodium/ 50 100 Tazobact 3.375 gm In Sodium Chloride 0.9% 50 ml @ 100 mls/hr IV Q8HR [facility] Rx#:[id number] Tube Feeding 660 Output: Urine 1250 700 Stool 1 Other: Weight Source Bedscale Bedscale Active Medications: Current Medications Acetaminophen (Tylenol 650mg/20.3ml Suspension) 650 mg GT Q6H PRN PRN Reason: MILD PAIN OR TEMP >100.5 Stop: 07/31/18 08:49 Acetaminophen (Tylenol Extra Strength) 500 mg PO Q8H PRN PRN Reason: MOD/SEVERE PAIN Stop: 07/31/18 08:49 Albuterol Sulfate (Albuterol 2.5mg/3ml Neb Ud) 2.5 mg HHN BIDRT PRN PRN Reason: Wheezing Stop: 07/31/18 08:49 Last Admin: 06/03/18 16:32 Dose: 2.5 mg Ascorbic Acid (Vitamin C) 500 mg GT DAILY [facility] Stop: 07/31/18 08:59 Last Admin: 06/05/18 08:40 Dose: 500 mg Aspirin (Aspirin Chewable) 81 mg GT DAILY [facility] Stop: 07/31/18 08:59 Last Admin: 06/05/18 08:40 Dose: 81 mg Bisacodyl (Dulcolax 10 Mg Supp) 10 mg RC DAILY PRN PRN Reason: IF MOM INEFFECTIVE Stop: 07/31/18 08:49 Calamine/Phenol (Calmoseptine) 1 appl TP BID [facility] Stop: 07/31/18 08:59 Last Admin: 06/05/18 08:47 Dose: 1 appl Docusate Sodium (Colace) 100 mg PO BID [facility] Stop: 07/31/18 08:59 Last Admin: 06/05/18 08:40 Dose: 100 mg Ferrous Sulfate (Iron) 300 mg PO DAILY [facility] Stop: 07/31/18 08:59 Last Admin: 06/05/18 08:40 Dose: 300 mg Dextrose/Sodium Chloride (D5-0.45ns) 1,000 mls @ 50 mls/hr IV .Q20H [facility] Stop: 07/31/18 07:59 Last Admin: 06/04/18 23:50 Dose: 50 mls/hr Doxycycline Hyclate 100 mg/ (Dextrose) 100 mls @ 100 mls/hr IV Q12H [facility] Stop: 07/31/18 21:59 Last Infusion: 06/04/18 23:10 Dose: Infused Piperacillin Sod/Tazobactam (Sod 3.375 gm/ Sodium Chloride) 50 mls @ 100 mls/ hr IV Q8HR [facility] Stop: 08/02/18 12:59 Last Infusion: 06/05/18 05:10 Dose: Infused Insulin Aspart (Novolog Insulin Sliding Scale) 0 units SUBQ Q6HR [facility]; Protocol Stop: 07/31/18 11:59 Last Admin: 06/05/18 05:15 Dose: Not Given Lactobacillus Rhamnosus (Culturelle 15b) 1 each PO DAILY [facility] Stop: 08/02/18 13:59 Last Admin: 06/05/18 08:40 Dose: 1 each Lorazepam (Ativan) 2 mg IVP Q4H PRN; Protocol PRN Reason: Agitation Stop: 07/31/18 09:35 Last Admin: 06/05/18 04:36 Dose: 2 mg Magnesium Hydroxide (Milk Of Magnesia) 30 ml GT HS PRN PRN Reason: Constipation Stop: 07/31/18 08:49 Midodrine (Proamatine) 5 mg GT TID [facility] Stop: 07/31/18 08:59 Last Admin: 06/05/18 08:41 Dose: 5 mg Miscellaneous (Probiotic Screen) 1 ea MC PRN PRN PRN Reason: PROTOCOL Stop: 08/02/18 12:18 Mupirocin (Bactroban Oint) 1 appl NS BID [facility] Stop: 06/07/18 17:01 Last Admin: 06/05/18 08:47 Dose: 1 appl Ondansetron HCl (Zofran Odt) 4 mg PO Q6H PRN PRN Reason: Nausea / Vomiting Stop: 07/31/18 08:49 Pantoprazole Sodium (Protonix) 40 mg GT QDAC [facility] Stop: 08/01/18 07:29 Last Admin: 06/05/18 08:40 Dose: 40 mg Pioglitazone HCl (Actos) 15 mg GT DAILY [facility] Stop: 07/31/18 08:59 Last Admin: 06/05/18 08:41 Dose: 15 mg Potassium Chloride (Potassium Chloride Elixir) 20 meq GT DAILY [facility] Stop: 07/31/18 08:59 Last Admin: 06/05/18 08:41 Dose: 20 meq Quetiapine Fumarate 50 mg/ (Quetiapine Fumarate 25 mg) 75 mg GT TID [facility] Stop: 07/31/18 08:59 Last Admin: 06/05/18 08:41 Dose: 75 mg Senna (Senna) 8.6 mg GT DAILY [facility] Stop: 07/31/18 08:59 Last Admin: 06/05/18 08:40 Dose: 8.6 mg Sodium Phosphate (Fleet Enema) 135 ml RC Q48H PRN PRN Reason: IF DULCOLAX INEFFECTIVE Stop: 07/31/18 08:49 Topiramate (Topamax) 150 mg GT DAILY [facility] Stop: 07/31/18 08:59 Last Admin: 06/05/18 08:41 Dose: 150 mg Zolpidem Tartrate (Ambien) 5 mg GT HS PRN PRN Reason: Insomnia Stop: 07/31/18 08:49 Last Admin: 06/04/18 03:23 Dose: 5 mg General: Alert, Mild distress (sedated , was combative earlier), Other HEENT: PERRLA, EOMI Neck: Supple Cardiovascular: Regular rate Lungs: Clear to auscultation Abdomen: Bowel sounds, Soft, no Tender, no Hepatomegaly, no Splenomegaly, no Distended, no Rebound, no Mass Extremities: no Cyanosis Psych/Mental Status: no Mental status NL Assessment/Plan - Assessment Assessment: 1. G tube dependant 2. Psychiatric history Swallow eval reports high risk for aspiration, recommending pureed diet with nectar thick liquids. I would not recommend pulling G tube in the patient, as he has high aspiration risk, and he also likely will not voluntarily consume enough calories by mouth. He would likely need replacement G tube procedure in a short time span, which carried risk - long in a pt who has scar tissue from a previous tube Pt has refused meals yesterday, confirming above suspicion. Plan: - do not recommend pulling G tube as stated above - can attempt to count calories to see if he truly is taking in enough by mouth , doubtful GI to see intermittently, please call if any questions
--- NOTE | 2018-06-05 14:09 | Infectious Disease Prog Note ---
Infectious Disease Subjective - Review of Systems Service Date: 06/05/18 Subjective: no new change, no fever. Infectious Disease Objective - Results Result Diagrams: 06/05/18 07:15 06/05/18 07:15 Recent Labs: Laboratory Last Values WBC 8.0 Th/cmm (4.8-10.8) 06/05/18 07:15 RBC 4.65 Mil/cmm (4.30-5.70) 06/05/18 07:15 Hgb 13.1 gm/dL (12-16) 06/05/18 07:15 Hct 40.8 % (41.0-60) L 06/05/18 07:15 MCV 87.9 fl (80-99) 06/05/18 07:15 MCH 28.2 pg (26.0-30.0) 06/05/18 07:15 MCHC Differential 32.1 pg (28.0-36.0) 06/05/18 07:15 RDW 15.0 % (11.5-20.0) 06/05/18 07:15 Plt Count 316 Th/cmm (150-400) 06/05/18 07:15 MPV 7.8 fl 06/05/18 07:15 Neutrophils % 72.5 % (40.0-80.0) 06/05/18 07:15 Lymphocytes % 11.3 % (20.0-50.0) L 06/05/18 07:15 Monocytes % 8.5 % (2.0-10.0) 06/05/18 07:15 Eosinophils % 7.4 % (0.0-5.0) H 06/05/18 07:15 Basophils % 0.3 % (0.0-2.0) 06/05/18 07:15 Sodium 136 mEq/L (136-145) 06/05/18 07:15 Potassium 4.0 mEq/L (3.5-5.1) 06/05/18 07:15 Chloride 104 mEq/L (98-107) 06/05/18 07:15 Carbon Dioxide 25.1 mEq/L (21.0-31.0) 06/05/18 07:15 Anion Gap 10.9 (7.0-16.0) 06/05/18 07:15 BUN 11 mg/dL (7-25) 06/05/18 07:15 Creatinine 0.8 mg/dL (0.7-1.3) 06/05/18 07:15 Est GFR ( Amer) > 60.0 ml/min (>90) 06/05/18 07:15 Est GFR (Non-Af Amer) > 60.0 ml/min 06/05/18 07:15 BUN/Creatinine Ratio 13.8 06/05/18 07:15 Glucose 120 mg/dL (70-105) H 06/05/18 07:15 POC Glucose 110 MG/DL (70 - 105) H 06/05/18 13:02 Calcium 9.1 mg/dL (8.6-10.3) 06/05/18 07:15 Total Bilirubin 0.3 mg/dL (0.3-1.0) 06/03/18 07:15 AST 13 U/L (13-39) 06/03/18 07:15 ALT 9 U/L (7-52) 06/03/18 07:15 Alkaline Phosphatase 95 U/L (34-104) 06/03/18 07:15 Troponin I 0.01 ng/mL (0.01-0.05) 06/01/18 03:10 Total Protein 6.5 gm/dL (6.0-8.3) 06/03/18 07:15 Albumin 3.6 gm/dL (4.2-5.5) L 06/03/18 07:15 Globulin 2.9 gm/dL 06/03/18 07:15 Albumin/Globulin Ratio 1.2 (1.0-1.8) 06/03/18 07:15 Urine Source RANDOM 06/01/18 17:00 Urine Color YELLOW 06/01/18 17:00 Urine Clarity CLEAR (CLEAR) 06/01/18 17:00 Urine pH 7.0 (4.6 - 8.0) 06/01/18 17:00 Ur Specific [place] 1.010 (1.005-1.030) 06/01/18 17:00 Urine Protein NEGATIVE mg/dL (NEGATIVE) 06/01/18 17:00 Urine Glucose (UA) NEGATIVE mg/dL (NEGATIVE) 06/01/18 17:00 Urine Ketones NEGATIVE mg/dL (NEGATIVE) 06/01/18 17:00 Urine Blood TRACE (NEGATIVE) 06/01/18 17:00 Urine Nitrate NEGATIVE (NEGATIVE) 06/01/18 17:00 Urine Bilirubin NEGATIVE (NEGATIVE) 06/01/18 17:00 Urine Urobilinogen 0.2 E.U./dL (0.2 - 1.0) 06/01/18 17:00 Ur Leukocyte Esterase NEGATIVE (NEGATIVE) 06/01/18 17:00 Urine RBC 0-2 /hpf (0-5) H 06/01/18 17:00 Urine WBC 0-2 /hpf (0-5) 06/01/18 17:00 Ur Epithelial Cells FEW /lpf (FEW) 06/01/18 17:00 Urine Bacteria OCCASIONAL /hpf (NONE SEEN) 06/01/18 17:00 - Physical Exam Vitals and I&O: Vital Signs Temp 98.4 F 06/05/18 06:00 Pulse 86 06/05/18 07:07 Resp 20 06/05/18 08:00 BP 139/86 06/05/18 06:00 Pulse Ox 98 06/05/18 07:07 Intake & Output 06/04/18 06/05/18 06/05/18 18:59 06:59 18:59 Intake Total 150 1789.167 Output Total 1251 700 Balance -1101 1089.167 Weight (lbs) 92.986 kg 93.168 kg Intake: Intake, IV Amount 150 1129.167 D5-0.45NS 1,000 ml @ 50 929.167 mls/hr IV .Q20H [facility] Rx#: [id number] Doxycycline Hyclate 100 100 100 mg In Dextrose 5% 100 ml @ 100 mls/hr IV Q12H [facility] Rx#:[id number] Piperacillin Sodium/ 50 100 Tazobact 3.375 gm In Sodium Chloride 0.9% 50 ml @ 100 mls/hr IV Q8HR [facility] Rx#:[id number] Tube Feeding 660 Output: Urine 1250 700 Stool 1 Other: Stool Characteristics Soft Brown Weight Source Bedscale Bedscale Active Medications: Current Medications Acetaminophen (Tylenol 650mg/20.3ml Suspension) 650 mg GT Q6H PRN PRN Reason: MILD PAIN OR TEMP >100.5 Stop: 07/31/18 08:49 Acetaminophen (Tylenol Extra Strength) 500 mg PO Q8H PRN PRN Reason: MOD/SEVERE PAIN Stop: 07/31/18 08:49 Albuterol Sulfate (Albuterol 2.5mg/3ml Neb Ud) 2.5 mg HHN BIDRT PRN PRN Reason: Wheezing Stop: 07/31/18 08:49 Last Admin: 06/03/18 16:32 Dose: 2.5 mg Ascorbic Acid (Vitamin C) 500 mg GT DAILY [facility] Stop: 07/31/18 08:59 Last Admin: 06/05/18 08:40 Dose: 500 mg Aspirin (Aspirin Chewable) 81 mg GT DAILY [facility] Stop: 07/31/18 08:59 Last Admin: 06/05/18 08:40 Dose: 81 mg Bisacodyl (Dulcolax 10 Mg Supp) 10 mg RC DAILY PRN PRN Reason: IF MOM INEFFECTIVE Stop: 07/31/18 08:49 Calamine/Phenol (Calmoseptine) 1 appl TP BID [facility] Stop: 07/31/18 08:59 Last Admin: 06/05/18 08:47 Dose: 1 appl Docusate Sodium (Colace) 100 mg PO BID [facility] Stop: 07/31/18 08:59 Last Admin: 06/05/18 08:40 Dose: 100 mg Ferrous Sulfate (Iron) 300 mg PO DAILY [facility] Stop: 07/31/18 08:59 Last Admin: 06/05/18 08:40 Dose: 300 mg Dextrose/Sodium Chloride (D5-0.45ns) 1,000 mls @ 50 mls/hr IV .Q20H [facility] Stop: 07/31/18 07:59 Last Admin: 06/04/18 23:50 Dose: 50 mls/hr Doxycycline Hyclate 100 mg/ (Dextrose) 100 mls @ 100 mls/hr IV Q12H [facility] Stop: 07/31/18 21:59 Last Admin: 06/05/18 09:27 Dose: 100 mls/hr Piperacillin Sod/Tazobactam (Sod 3.375 gm/ Sodium Chloride) 50 mls @ 100 mls/ hr IV Q8HR [facility] Stop: 08/02/18 12:59 Last Admin: 06/05/18 13:05 Dose: 100 mls/hr Insulin Aspart (Novolog Insulin Sliding Scale) 0 units SUBQ Q6HR [facility]; Protocol Stop: 07/31/18 11:59 Last Admin: 06/05/18 13:05 Dose: Not Given Lactobacillus Rhamnosus (Culturelle 15b) 1 each PO DAILY [facility] Stop: 08/02/18 13:59 Last Admin: 06/05/18 08:40 Dose: 1 each Lorazepam (Ativan) 2 mg IVP Q4H PRN; Protocol PRN Reason: Agitation Stop: 07/31/18 09:35 Last Admin: 06/05/18 04:36 Dose: 2 mg Magnesium Hydroxide (Milk Of Magnesia) 30 ml GT HS PRN PRN Reason: Constipation Stop: 07/31/18 08:49 Midodrine (Proamatine) 5 mg GT TID [facility] Stop: 07/31/18 08:59 Last Admin: 06/05/18 13:41 Dose: 5 mg Miscellaneous (Probiotic Screen) 1 ea MC PRN PRN PRN Reason: PROTOCOL Stop: 08/02/18 12:18 Mupirocin (Bactroban Oint) 1 appl NS BID [facility] Stop: 06/07/18 17:01 Last Admin: 06/05/18 08:47 Dose: 1 appl Ondansetron HCl (Zofran Odt) 4 mg PO Q6H PRN PRN Reason: Nausea / Vomiting Stop: 07/31/18 08:49 Pantoprazole Sodium (Protonix) 40 mg GT QDAC [facility] Stop: 08/01/18 07:29 Last Admin: 06/05/18 08:40 Dose: 40 mg Pioglitazone HCl (Actos) 15 mg GT DAILY [facility] Stop: 07/31/18 08:59 Last Admin: 06/05/18 08:41 Dose: 15 mg Potassium Chloride (Potassium Chloride Elixir) 20 meq GT DAILY [facility] Stop: 07/31/18 08:59 Last Admin: 06/05/18 08:41 Dose: 20 meq Quetiapine Fumarate 50 mg/ (Quetiapine Fumarate 25 mg) 75 mg GT TID [facility] Stop: 07/31/18 08:59 Last Admin: 06/05/18 13:40 Dose: 75 mg Senna (Senna) 8.6 mg GT DAILY [facility] Stop: 07/31/18 08:59 Last Admin: 06/05/18 08:40 Dose: 8.6 mg Sodium Phosphate (Fleet Enema) 135 ml RC Q48H PRN PRN Reason: IF DULCOLAX INEFFECTIVE Stop: 07/31/18 08:49 Topiramate (Topamax) 150 mg GT DAILY [facility] Stop: 07/31/18 08:59 Last Admin: 06/05/18 08:41 Dose: 150 mg Zolpidem Tartrate (Ambien) 5 mg GT HS PRN PRN Reason: Insomnia Stop: 07/31/18 08:49 Last Admin: 06/04/18 03:23 Dose: 5 mg General: no acute distress, well developed, well nourished HEENT: atraumatic, normocephalic, PERRLA Neck: supple, no thyromegaly Cardiovascular: S1S2, regular Lungs: clear to auscultation bilaterally, clear to percussion Abdomen: soft, no tender, no distended Extremities: no cyanosis, no clubbing, no edema Infectious Disease Assmt/Plan - Assessment Assessment: 1. Aggressive behavior. 2. Cellulitis improving. 3. Dementia. 4. DM2. 5. Seizures. 6. Dysphagia, G tube. 7. MRSA colonization. - Plan Plan: Continue the same treatment plan. Dc antibiotics. Bactropban nasal. Nutritional Asmnt/Malnutr-PDOC - Dietary Evaluation Malnutrition Findings (Please click <Entered> for more info): Nutritional Asmnt/Malnutrition Start: 06/03/18 17: 01 Text: Status: Complete Freq: Protocol: Document 06/03/18 17:04 LCHENG (Rec: 06/03/18 17:15 REED [id number]) Nutritional Asmnt/Malnutrition Patient General Information Diagnosis cellulitis Pertinent Medical Hx/Surgical Hx DM, seizure, cataract Subjective Information Pt seen resting in bed at time of visit. TF was running at 50ml/hr. Current Diet Order/ Nutrition Support glucerna 1.2 at 50ml/hr continuous Pertinent Medications vit C, D5-0.45ns, colace, iron , novolog, culturelle, protonix, piperacillin, kcl, senna Pertinent Labs 06/03 Cl 108, glucose 118, POC 109-120 Nutritional Hx/Data Height 1.78 m Height (Calculated Centimeters) 177.8 Current Weight (lbs) 83.915 kg Weight (Calculated Kilograms) 83.9 Weight (Calculated Grams) 35920.6 [place] Body Weight 172 Body Mass Index (BMI) 26.5 Weight Status Overweight GI Symptoms GI Symptoms None Last BM 06/01 Difficult in: None Usual diet at home pureed CCHO nectar thick liquid diet at care facility per chart Skin Integrity/Comment: abrasion to right knee, scab to LLE and RLE Estimated Nutritional Goals Calories/Kcals/Kg 23-27 based on IBW Kcals Calculated 8534-4930 Protein g/k Protein Calculated 75 Fluid: ml 1725-2025ml (1ml/kcal) Nutritional Problem 1. Problem Problem altered nutrition related labs Etiology hx of DM Signs/Symptoms: glucose 115-118 Malnutrition Alert Is there a minimum of two criteria No selected? Query Text:Check all the applicable criteria. A minimum of two criteria are recommended for diagnosis of either severe or non-severe malnutrition. Malnutrition Related to Morbid Obesity Malnutrition related to morbid obesity No Intervention/Recommendation Comments 1. Continue with current TF regimen. It provides 1440kcal, 72g protein, 966ml free water , meeting about 85% of calorie needs and 100% of protein needs. 2. Monitor TF rate, tolerance, wt, skin integrity and labs 3. F/U as moderate risk in 3-5 days, 06/06-06/08 Expected Outcomes/Goals Expected Outcomes/Goals 1. Pt to meet at least 75% of nutritional needs via nutrition support with tolerance 2. Wt stability, skin to remain intact, labs to approach WNL.
--- NOTE | 2018-06-17 16:10 | Discharge Summary ---
DATE OF DISCHARGE: 06/05/2018 HISTORY OF PRESENT ILLNESS: The patient was admitted on 06/01/2018, was discharged on 06/05/2018 back to see [facility]. This patient is a 58-year-old male patient, known to me. The patient is at [facility], essentially was very agitated, has increasing psychosis, diabetes, also osteoarthritis, dysphagia, bilateral lower extremity cellulitis. The patient was admitted, given IV antibiotics and adjust in psych medication. The patient improved. The patient was in stable condition and the patient was sent back to [facility]. DIAGNOSES: Psychosis, diabetes, osteoarthritis, and cellulitis, improving. I will follow the patient there. [facility]# [id number]
== END 2018-06-05 15:39 | DRG 871 ==
LOC: ER 02:38 → UNDOADMIN 03:55 → ICU 03:55 → TELE 06-03 18:50 → MSI 06-03 18:51
PROVIDERS: ADMIT Internal Medicine; ATTEND Internal Medicine
PROC: 5A09357 Assistance with Respiratory Ventilation, Less than 24 Consecutive Hours, Continuous Positive Airway Pressure (ICD-10-PCS; principal; 2018-06-02)
DX: A41.9 Sepsis, unspecified organism (principal); R65.21 Severe sepsis with septic shock; L03.116 Cellulitis of left lower limb; L03.115 Cellulitis of right lower limb; E11.9 Type 2 diabetes mellitus without complications; M19.90 Unspecified osteoarthritis, unspecified site; D50.9 Iron deficiency anemia, unspecified; R13.10 Dysphagia, unspecified; Z93.1 Gastrostomy status; K21.9 Gastro-esophageal reflux disease without esophagitis; F41.9 Anxiety disorder, unspecified; F29 Unspecified psychosis not due to a substance or known physiological condition; R41.0 Disorientation, unspecified; F03.90 Unspecified dementia, unspecified severity, without behavioral disturbance, psychotic disturbance, mood disturbance, and anxiety; G40.909 Epilepsy, unspecified, not intractable, without status epilepticus; Z22.322 Carrier or suspected carrier of Methicillin resistant Staphylococcus aureus; Z79.82 Long term (current) use of aspirin
CPT/HCPCS: 36415-UA; 71045-TC; 80048-TC; 80053-TC; 81001-TC; 82948-90; 84484-TC; 85025-TC; 93005; 94640; 94660; 94760; 96374; J1630; J1815; J2060; J2543; J7613; X3401; X6118; Z7610

== ENCOUNTER 2018-06-20 23:33 | Inpatient (IN) | payer MEDICARE, MEDICAID ==
--- NOTE | 2018-06-21 00:11 | ED Physician Chart ---
ED Chief Complaint/HPI - Patient Information Date Seen:: 06/21/18 Time Seen:: 00:05 Chief Complaint:: agitation History of Present Illness:: Patient was sent here for admission to [facility] because of increased agitation at his detention facility. Patient was last admitted here on 06/05/2018. Allergies:: Allergies Allergy/AdvReac Type Severity Reaction Status Date / Time No Known Allergies Allergy Verified 04/15/18 18:28 Vitals:: Vital Signs - 8 hr 06/20/18 23:36 Temp 98.3 F HR 77 RR 18 BP 128/62 O2 Sat % 96 Review:: Transfer documents Reviewed ED Review of Systems - Review of Systems General/Constitutional: No fever, No chills, No weight loss, No weakness, No diaphoresis, No edema, No loss of appetite Skin: No skin lesions, No rash, No bruising Head: No headache, No light-headedness Eyes: No loss of vision, No pain, No diplopia ENT: No earache, No nasal drainage, No sore throat, No tinnitus Neck: No neck pain, No swelling, No thyromegaly, No stiffness, No mass noted Cardio Vascular: No chest pain, No palpitations, No PND, No orthopnea, No edema Pulmonary: No SOB, No cough, No sputum, No wheezing GI: No nausea, No vomiting, No diarrhea, No pain, No melena, No hematochezia, No constipation, No hematemesis G/U: No dysuria, No frequency, No hematuria Musculoskeletal: No bone or joint pain, No back pain, No muscle pain Endocrine: No polyuria, No polydipsia Psychiatric: Prior psych history Hematopoietic: No bruising, No lymphadenopathy Allergic/Immuno: No urticaria, No angioedema Neurological: No syncope, No focal symptoms, No weakness, No paresthesia, No headache, No seizure, No dizziness, No confusion, No vertigo ED Past Medical History - Past Medical History Past Medical History: HTN, DM (status post cellulitis; MRSA; gastritis; GERD; bipolar disorder; status post TIA A and CVA), Asthma/COPD, PUD/GERD, ESRD, Seizures, Other (status post cellulitis; MRSA; ) Family History: Other (normal) Social History: Care Facility Surgical History: PEG/GTube Psychiatricy History: Bipolar ( ) Family Medical History - Family Member Mother History Unknown: Yes Ethnicity: Unknown Living Status: Unknown Hx Family Cancer: (unknown) Hx Family Coronary Artery Disease: (unknown) Hx Family Congestive Heart Failure: (unknown) Hx Family Hypertension: (unknown) Hx Family Stroke: (unknown) Hx Family Diabetes: (unknown) Hx Family Seizures: (unknown) Hx Family Dementia: (unknown) Hx Family AIDS: (unknown) Hx Family COPD: (unknown) Hx Family Hepatitis: (unknown) Hx Family Psychiatric Problems: (unknown) Hx Family Tuberculosis: (unknown) ED Physical Exam - Physical Examination General/Constitutional: Awake, Alert, Non-toxic appearing Other Gen/Cons comments:: Initially somnolent; aroused to resist physical examination Head: Atraumatic Eyes: Lids, conjuctiva normal, PERRL, EOMI Skin: No rash, No skin lesions, No ecchymosis, Well hydrated, No lymphadenopathy Other Skin comments:: Mild erythema distal lower legs ENMT: External ears, nose nl, Nasal exam nl Other ENMT comments:: Edentulous Neck: Nontender, Full ROM w/o pain, No JVD, No nuchal rigidity, No bruit, No mass, No stridor Respiratory: Nl effort/Exclusion, Clear to Auscultation, No Wheeze/Rhonchi/Rales Cardio Vascular: RRR, No murmur, gallop, rubs, NL S1 S2 GI: No tenderness/rebounding/guarding, No organomegaly, No hernia, Normal BS's, Nondistended, No mass/bruits, No McBurney tenderness : No CVA tenderness Extremities: No tenderness or effusion, Full ROM, normal strength in all extremities, No edema, Normal digits & nails Neuro/Psych: Alert/oriented, DTR's symmetric, Normal sensory exam, Normal motor strength, Judgement/insight normal, Mood normal, Normal gait, No focal deficits Misc: Normal back, No paraspinal tenderness ED Labs/Radiology/EKG Results - Lab Results Results: Laboratory Results - last 24 hr 06/21/18 06/21/18 06/21/18 00:05 00:10 00:10 WBC 16.0 H RBC 4.36 Hgb 12.3 Hct 37.9 L MCV 86.9 MCH 28.2 MCHC Differential 32.5 RDW 15.2 Plt Count 287 MPV 8.1 Neutrophils % 83.8 H Lymphocytes % 10.7 L Monocytes % 2.9 Eosinophils % 2.3 Basophils % 0.3 Sodium 139 Potassium 4.3 Chloride 105 Carbon Dioxide 27.0 Anion Gap 11.3 BUN 12 Creatinine 0.9 Est GFR ( Amer) > 60.0 Est GFR (Non-Af Amer) > 60.0 BUN/Creatinine Ratio 13.3 Glucose 122 H POC Glucose 115 H Whole Bld Lactic Acid Calcium 9.1 Total Bilirubin 0.4 AST 18 ALT 15 Alkaline Phosphatase 106 H Ammonia Total Protein 6.2 Albumin 3.4 L Globulin 2.8 Albumin/Globulin Ratio 1.2 Triglycerides 83 Cholesterol 133 LDL Cholesterol Direct 78 HDL Cholesterol 33 Salicylates < 25.0 L Acetaminophen < 10.0 L Ethyl Alcohol < 10 06/21/18 06/21/18 00:10 00:10 WBC RBC Hgb Hct MCV MCH MCHC Differential RDW Plt Count MPV Neutrophils % Lymphocytes % Monocytes % Eosinophils % Basophils % Sodium Potassium Chloride Carbon Dioxide Anion Gap BUN Creatinine Est GFR ( Amer) Est GFR (Non-Af Amer) BUN/Creatinine Ratio Glucose POC Glucose Whole Bld Lactic Acid 0.89 Calcium Total Bilirubin AST ALT Alkaline Phosphatase Ammonia 87 H Total Protein Albumin Globulin Albumin/Globulin Ratio Triglycerides Cholesterol LDL Cholesterol Direct HDL Cholesterol Salicylates Acetaminophen Ethyl Alcohol - EKG Interpretations Rate & Rhythm: normal sinus rhythm with a rate of 80 [place]: normal axis ED Assessment - Assessment General Assessment: at 0115 patient more alert. Says he is fine. ED Septic Shock - . Is Septic Shock (SBP<90, OR Lactate>4 mmol\L) present?: No - <6hrs of presentation: Vital Signs: Vital Signs - 8 hr 06/20/18 23:36 Temp 98.3 F HR 77 RR 18 BP 128/62 O2 Sat % 96 ED Reassessment (Disposition) - Reassessment Reassessment Condition:: Improved - Diagnosis Diagnosis:: Altered mental status; elevated ammonia; leukocytosis - Patient Disposition Admitted to:: Telemetry Condition at Disposition:: Stable, Improved
[2018-06-21 00:40] LABS: % EOSINOPHILS 2.3 % (0.0-5.0); EOSINOPHILE ABSOLUTE 0.4 Th/cmm (0.1-0.4); MEAN PLATELET VOLUME 8.1 fl; NEUTROPHILE ABSOLUTE 13.4 Th/cmm (1.8-8.0)
[2018-06-21 00:41] LABS: % BASOPHILS 0.3 % (0.0-2.0); % LYMPHOCYTES 10.7 % (20.0-50.0); % MONOCYTES 2.9 % (2.0-10.0); % NEUTROPHILS 83.8 % (40.0-80.0); HEMATOCRIT 37.9 % (41.0-60); HEMOGLOBIN 12.3 gm/dL (12-16); LYMPHOCYTE ABSOLUTE 1.7 Th/cmm (1.5-3.0); MEAN CELL VOLUME 86.9 fl (80-99); MEAN CORPUSCULAR HEMOGLOBIN 28.2 pg (26.0-30.0); MEAN CORPUSCULAR HGB CONC 32.5 pg (28.0-36.0); MONOCYTE ABSOLUTE 0.5 Th/cmm (0.3-1.0); PLATELET COUNT 287 Th/cmm (150-400); RED BLOOD COUNT 4.36 Mil/cmm (4.30-5.70); RED CELL DISTRIBUTION WIDTH 15.2 % (11.5-20.0)
[2018-06-21 00:45] LABS: ACETAMINOPHEN < 10.0 ug/mL (10.0-30.0); ALB/GLOB RATIO 1.2 (1.0-1.8); ALBUMIN 3.4 gm/dL (4.2-5.5); ALKALINE PHOSPHATASE 106 U/L (34-104); ANION GAP 11.3 (7.0-16.0); BILIRUBIN,TOTAL 0.4 mg/dL (0.3-1.0); BUN - UREA NITROGEN 12 mg/dL (7-25); CALCIUM SERUM 9.1 mg/dL (8.6-10.3); CHLORIDE 105 mEq/L (98-107); CHOLESTEROL 133 mg/dL (<200); CREATININE - SERUM 0.9 mg/dL (0.7-1.3); GFR AFRICAN-AMERICAN > 60.0 ml/min (>90); GFR NON AFRICAN-AMERICAN > 60.0 ml/min; GLUCOSE 122 mg/dL (70-105); HDL -HIGH DENSITY LIPOPROTEIN 33 mg/dL (23-92); POTASSIUM SERUM 4.3 mEq/L (3.5-5.1); SGOT 18 U/L (13-39); SGPT/ALT 15 U/L (7-52); SODIUM SERUM 139 mEq/L (136-145); TOTAL PROTEIN,SERUM 6.2 gm/dL (6.0-8.3); TRIGLYCERIDES 83 mg/dL (<150)
[2018-06-21 00:46] LABS: SALICYLATES (ASPIRIN) < 25.0 mg/L (30.0-100.0)
[2018-06-21] MEDS ORDERED: Lactulose 10 Gm/15 mL 30mL UDC PO STA (01:25)
[2018-06-21] MEDS ORDERED: Lactulose 10 Gm/15 mL 30mL UDC ONE (01:29)
[2018-06-21 02:49] LABS: URINE SOURCE CLEAN C
[2018-06-21 02:53] LABS: URINE BILIRUBIN MODERATE (NEGATIVE); URINE BLOOD NEGATIVE (NEGATIVE); URINE GLUCOSE (UA) NEGATIVE (NEGATIVE); URINE KETONE 15 mg/dL (NEGATIVE); URINE LEUKOCYTE ESTERASE NEGATIVE (NEGATIVE); URINE NITRATE NEGATIVE (NEGATIVE); URINE PROTEIN 30 mg/dL (NEGATIVE)
[2018-06-21 03:06] LABS: URINE CLARITY HAZY (CLEAR); URINE COLOR ORANGE; URINE MICROSCOPIC INDICATED? YES
[2018-06-21 03:07] LABS: AMPHETAMINE URINE NEGATIVE (NEGATIVE); BARBITURATES URINE NEGATIVE (NEGATIVE); BENZODIAZEPINES QUAL URINE POSITIVE (NEGATIVE); CANNABINOID THC NEGATIVE (NEGATIVE); COCAINE METABOLITE QUAL URINE NEGATIVE (NEGATIVE); METHADONE URINE NEGATIVE (NEGATIVE); METHAMPHETAMINES QUAL URINE NEGATIVE (NEGATIVE); OPIATES (MORPHINE) QUAL. URINE NEGATIVE (NEGATIVE); PHENCYCLIDINE (PCP) URINE NEGATIVE (NEGATIVE); TRICYCLICS (TCA) QUAL. URINE POSITIVE (NEGATIVE)
[2018-06-21 03:13] LABS: URINE BACTERIA OCCASIONAL /hpf (NONE SEEN); URINE EPITHELIAL CELLS FEW /lpf (FEW); URINE ICTOTEST NEGATIVE (NEGATIVE); URINE RBC 0-2 /hpf (0-5); URINE WBC 0-2 /hpf (0-5)
[2018-06-21] MEDS ORDERED: D5-0.45NS 1,000 ML IV SCH (08:13)
[2018-06-21] MEDS ORDERED: Fleet Enema 135 mL RC PRN (08:21)
[2018-06-21] MEDS ORDERED: Magnesium Hydroxide (MOM) 30 mL UDC GT PRN (08:21)
[2018-06-21] MEDS ORDERED: Acetaminophen 500 MG TAB GT PRN (08:21)
[2018-06-21] MEDS ORDERED: INSULIN ASPART SLIDING SCALE 100 UNITS/ML UNIT SUBQ SCH (08:30)
[2018-06-21] MEDS ORDERED: MUPIROCIN CALCIUM 2% NS SCH (08:30)
[2018-06-21] MEDS: Lactobacillus Rhamnosus GG 15 Billion CFU CAP.SPRINK GT SCH (10:31)
[2018-06-21] MEDS: Lactulose 10 Gm/15 mL 30mL UDC PO SCH ×4 (10:31→23:39)
[2018-06-21] MEDS: Ferrous Sulfate 300 MG/5 ML UDC GT SCH (10:31)
[2018-06-21] MEDS: Docusate Sodium 100 mg/10 mL UD GT SCH (10:31)
[2018-06-21] MEDS: Potassium Chloride 20 mEq ER Tab PO SCH (10:32)
[2018-06-21] MEDS: Aspirin 81mg Chewable Tab GT SCH (10:32)
[2018-06-21] MEDS ORDERED: VTE Chemical Prophylaxis Screen/Admission MC PRN (13:00)
[2018-06-21] MEDS: INSULIN ASPART SLIDING SCALE 100 UNITS/ML UNIT SUBQ SCH ×3 (13:10→20:28)
[2018-06-21] MEDS: Pantoprazole 40 mg/Packet GT SCH (13:48)
--- NOTE | 2018-06-21 19:56 | History and Physical ---
History of Present Illness - HPI Chief Complaint: ALOC HPI: This is a 58-year old male who has a 1 day history of ALOC. In the ER patient was noted with leukocytosis and high ammonia level. Vital Signs: Last Vital Signs Temp 96.8 F 06/21/18 18:00 Pulse 89 06/21/18 18:00 Resp 19 06/21/18 18:00 BP 148/76 06/21/18 18:00 Pulse Ox 96 06/21/18 18:00 Past Medical History Other History: HTN, DM, gastritis; GERD; bipolar disorder; TIA and CVA,Asthma/COPD, PUD/GERD, ESRD, Seizures Family Medical History - Family Member Mother History Unknown: Yes Ethnicity: Unknown Living Status: Unknown Hx Family Cancer: (unknown) Hx Family Coronary Artery Disease: (unknown) Hx Family Congestive Heart Failure: (unknown) Hx Family Hypertension: (unknown) Hx Family Stroke: (unknown) Hx Family Diabetes: (unknown) Hx Family Seizures: (unknown) Hx Family Dementia: (unknown) Hx Family AIDS: (unknown) Hx Family COPD: (unknown) Hx Family Hepatitis: (unknown) Hx Family Psychiatric Problems: (unknown) Hx Family Tuberculosis: (unknown) Social History Smoke: No Alcohol: None Drugs: None Lives: [facility] - Medications Home Medications: Home Medication Medication Instructions Recorded Type Acetaminophen [Tylenol Extra 1,000 mg GT Q6H PRN 06/20/18 History Strength] Acetaminophen [Tylenol Extra 1,000 mg GT Q8H PRN 06/20/18 History Strength] Acetaminophen [Tylenol] 650 mg GT Q6HR PRN 06/20/18 History Albuterol Sulfate 2.5 mg IH BID PRN 06/20/18 History Ascorbic Acid [Vitamin C] 500 mg GT DAILY 06/20/18 History Aspirin [Aspirin Chewable] 81 mg GT DAILY 06/20/18 History Bisacodyl [Dulcolax 10 Mg Supp] 10 mg RC DAILY PRN 06/20/18 History Docusate Sodium 100 mg GT DAILY 06/20/18 History Ferrous Sulfate 7.5 ml GT DAILY 06/20/18 History Fleet Enema 135 ml RC Q48H PRN 06/20/18 History Insulin Aspart Sliding Scale See Protocol SUBQ Q6H 06/20/18 History [NovoLOG INSULIN SLIDING SCALE] Lactobacillus Rhamnosus GG 1 each GT DAILY 06/20/18 History [Culturelle] Lorazepam [Ativan] 0.5 mg GT Q6H PRN 06/20/18 History Magnesium Hydroxide [Milk of 30 ml GT HS PRN 06/20/18 History Magnesia] Midodrine HCl 5 mg GT TID 06/20/18 History Mupirocin Calcium [Bactroban Nasal] 2 % NS Q72H 06/20/18 History Pantoprazole Sodium [Protonix] 40 mg GT QDAC 06/20/18 History Pioglitazone HCl [Actos] 15 mg GT DAILY 06/20/18 History Potassium Chloride ER [Klor-Con] 20 meq GT DAILY 06/20/18 History QUEtiapine Fumarate ER [Seroquel 75 mg GT DAILY 06/20/18 History Xr] Zolpidem Tartrate 5 mg GT HS 06/20/18 History hydrOXYzine [Atarax*] 10 mg GT TID PRN 06/20/18 History - Allergies Allergies/Adverse Reactions: Allergies Allergy/AdvReac Type Severity Reaction Status Date / Time No Known Allergies Allergy Verified 04/15/18 18:28 Review of Systems - Review of Systems Constitutional: Report: Weakness Eyes: Report: No Significant Respiratory: Report: No Significant Cardiovascular: Report: No Significant Neurological: Report: Weakness Physical Exam - Physical Exam HEENT: Report: Ears Nose Throat within normal limits Neck: Report: Within normal limits Cardiovascular Systems: Report: +s1/s2 noted, Regular, Rate and Rhythm Respiratory: Report: Breath Sounds are within normal limits Skin: Report: Warm, Dry Neuro/Psych: Report: Weakness or sensory loss noted. - Lab Results All Lab Results last 24 hours: Laboratory Results - last 24 hr 06/21/18 06/21/18 06/21/18 00:05 00:10 00:10 WBC 16.0 H RBC 4.36 Hgb 12.3 Hct 37.9 L MCV 86.9 MCH 28.2 MCHC Differential 32.5 RDW 15.2 Plt Count 287 MPV 8.1 Neutrophils % 83.8 H Lymphocytes % 10.7 L Monocytes % 2.9 Eosinophils % 2.3 Basophils % 0.3 Sodium 139 Potassium 4.3 Chloride 105 Carbon Dioxide 27.0 Anion Gap 11.3 BUN 12 Creatinine 0.9 Est GFR ( Amer) > 60.0 Est GFR (Non-Af Amer) > 60.0 BUN/Creatinine Ratio 13.3 Glucose 122 H POC Glucose 115 H Whole Bld Lactic Acid Calcium 9.1 Total Bilirubin 0.4 AST 18 ALT 15 Alkaline Phosphatase 106 H Ammonia Total Protein 6.2 Albumin 3.4 L Globulin 2.8 Albumin/Globulin Ratio 1.2 Triglycerides 83 Cholesterol 133 LDL Cholesterol Direct 78 HDL Cholesterol 33 TSH Urine Source Urine Color Urine Clarity Urine pH Ur Specific [place] Urine Protein Urine Glucose (UA) Urine Ketones Urine Blood Urine Nitrate Urine Bilirubin Urine Ictotest Urine Urobilinogen Ur Leukocyte Esterase Urine RBC Urine WBC Ur Epithelial Cells Urine Bacteria Urine Mucus Salicylates < 25.0 L Urine Opiates Screen Urine Methadone Screen Acetaminophen < 10.0 L Ur Barbiturates Screen Ur Tricyclics Screen Ur Phencyclidine Scrn Amphetamines Screen U Methamphetamines Scrn U Benzodiazepines Scrn U Cocaine Metab Screen U Cannabinoids Screen Ethyl Alcohol < 10 06/21/18 06/21/18 06/21/18 00:10 00:10 02:45 WBC RBC Hgb Hct MCV MCH MCHC Differential RDW Plt Count MPV Neutrophils % Lymphocytes % Monocytes % Eosinophils % Basophils % Sodium Potassium Chloride Carbon Dioxide Anion Gap BUN Creatinine Est GFR ( Amer) Est GFR (Non-Af Amer) BUN/Creatinine Ratio Glucose POC Glucose Whole Bld Lactic Acid 0.89 Calcium Total Bilirubin AST ALT Alkaline Phosphatase Ammonia 87 H Total Protein Albumin Globulin Albumin/Globulin Ratio Triglycerides Cholesterol LDL Cholesterol Direct HDL Cholesterol TSH 0.51 Urine Source Urine Color Urine Clarity Urine pH Ur Specific [place] Urine Protein Urine Glucose (UA) Urine Ketones Urine Blood Urine Nitrate Urine Bilirubin Urine Ictotest Urine Urobilinogen Ur Leukocyte Esterase Urine RBC Urine WBC Ur Epithelial Cells Urine Bacteria Urine Mucus Salicylates Urine Opiates Screen NEGATIVE Urine Methadone Screen NEGATIVE Acetaminophen Ur Barbiturates Screen NEGATIVE Ur Tricyclics Screen POSITIVE H Ur Phencyclidine Scrn NEGATIVE Amphetamines Screen NEGATIVE U Methamphetamines Scrn NEGATIVE U Benzodiazepines Scrn POSITIVE H U Cocaine Metab Screen NEGATIVE U Cannabinoids Screen NEGATIVE Ethyl Alcohol 06/21/18 06/21/18 06/21/18 02:45 12:38 17:28 WBC RBC Hgb Hct MCV MCH MCHC Differential RDW Plt Count MPV Neutrophils % Lymphocytes % Monocytes % Eosinophils % Basophils % Sodium Potassium Chloride Carbon Dioxide Anion Gap BUN Creatinine Est GFR ( Amer) Est GFR (Non-Af Amer) BUN/Creatinine Ratio Glucose POC Glucose 161 H 114 H Whole Bld Lactic Acid Calcium Total Bilirubin AST ALT Alkaline Phosphatase Ammonia Total Protein Albumin Globulin Albumin/Globulin Ratio Triglycerides Cholesterol LDL Cholesterol Direct HDL Cholesterol TSH Urine Source CLEAN C Urine Color ORANGE Urine Clarity HAZY Urine pH 6.0 Ur Specific [place] 1.025 Urine Protein 30 H Urine Glucose (UA) NEGATIVE Urine Ketones 15 H Urine Blood NEGATIVE Urine Nitrate NEGATIVE Urine Bilirubin MODERATE H Urine Ictotest NEGATIVE Urine Urobilinogen 1.0 Ur Leukocyte Esterase NEGATIVE Urine RBC 0-2 H Urine WBC 0-2 Ur Epithelial Cells FEW Urine Bacteria OCCASIONAL Urine Mucus MODERATE Salicylates Urine Opiates Screen Urine Methadone Screen Acetaminophen Ur Barbiturates Screen Ur Tricyclics Screen Ur Phencyclidine Scrn Amphetamines Screen U Methamphetamines Scrn U Benzodiazepines Scrn U Cocaine Metab Screen U Cannabinoids Screen Ethyl Alcohol - Assessment Assessment: aloc acute uti leukocytosis HTN DM copd esrd seizures - Plan Plan: gi consult empiric iv rocephin seizure precautions follow up labs in am continue the rest of the orders
[2018-06-21] MEDS: cefTRIAXone 1 GM in Sodium Chloride 0.9% 50 ML IV SCH (21:20)
--- NOTE | 2018-06-22 01:12 | Consultation ---
DATE OF CONSULTATION: 06/21/2018 REASON FOR CONSULTATION: Dysphagia. HISTORY OF PRESENT ILLNESS: This consult was obtained through the courtesy of Dr. Sanders for this 58-year-old with history of dysphagia, has a G-tube. He is coming from a group home, apparently he has been eating and there was no need for feeding tube, so asked to remove it, but the patient was admitted for altered mental status, for agitation, has been in the hospital here. The patient is cooperative, but confused. PAST MEDICAL HISTORY: Hypertension, diabetes, bipolar disorder, CVA, asthma, peptic ulcer disease, end-stage renal disease and seizure. PAST SURGICAL HISTORY: Shunt related surgery. SOCIAL HISTORY: Nonsmoker, nonalcoholic, no IV drug abuser at that time. FAMILY HISTORY: Noncontributory. REVIEW OF SYSTEMS: Unobtainable. ALLERGIES: No known drug allergies. MEDICATIONS: The patient is on Tylenol, albuterol, vitamin C, aspirin, Dulcolax, Colace, iron, heparin, Atarax, Culturelle, NovoLog, lactulose, Ativan, milk of magnesia, ____, Protonix, Actos, albuterol, vitamin C and aspirin. REVIEW OF SYSTEMS: Unobtainable. PHYSICAL EXAMINATION: GENERAL: The patient is awake, oriented to self, in no acute distress. VITAL SIGNS: Blood pressure is 134/91, heart rate 89, respiratory rate is 18 and temperature is 97.4. HEAD AND NECK: Pupils reactive to light. Extraocular muscles could not be tested. Oral cavity, no lesion. NECK: Supple. CHEST: Good air entry. LUNGS: Clear to auscultation. CARDIOVASCULAR: Regular rate and rhythm. No murmur or gallop. ABDOMEN: Soft, positive bowel sounds, obese, not tender. There is a G-tube in place. I tried to remove it by traction method, could not. EXTREMITIES: Lower extremities, no edema. CENTRAL NERVOUS SYSTEM: Unable to evaluate. LABORATORY DATA: White count 16,000, H and H of 12.3 and 37.9 with platelets of 287. IMPRESSION: A 58-year-old with dysphagia. ASSESSMENT AND PLAN: Dysphagia, seems to have improved. Unfortunately, the tube could not be removed by traction method. This means the patient would have to have an endoscopy with removal of the tube endoscopically. This could mean either the substance of the tube itself is for material that cannot be squeezed out of the abdomen. There is a bland of this which was done to prevent removing it or it has stiffened while in place and now cannot remove it. So unfortunately is very painful, so this has to be done by scope to remove it. Other medical problems such as diabetes, hypertension, COPD, etc., as per Dr. Sanders. Thank you, Dr. Sanders, for allowing me to participate in the care of the patient. If you have any further questions, please let me know. JOB# [id number]
[2018-06-22] MEDS ORDERED: Haloperidol Lactate 5 mg/mL 1mL Vial IM PRN (02:30)
[2018-06-22] MEDS: Lactulose 10 Gm/15 mL 30mL UDC PO SCH ×4 (05:40→23:34)
[2018-06-22] MEDS: INSULIN ASPART SLIDING SCALE 100 UNITS/ML UNIT SUBQ SCH ×4 (06:45→23:19)
[2018-06-22] MEDS: Pantoprazole 40 mg/Packet GT SCH (06:47)
[2018-06-22 08:16] LABS: INR 1.03 (0.5-1.4); PROTHROMBIN TIME (TEST) 10.7 SECONDS (9.5-11.5)
[2018-06-22 08:22] LABS: ANION GAP 11.4 (7.0-16.0); BUN - UREA NITROGEN 7 mg/dL (7-25); CARBON DIOXIDE 24.2 mEq/L (21.0-31.0); CHLORIDE 106 mEq/L (98-107); CREATININE - SERUM 0.8 mg/dL (0.7-1.3); GFR AFRICAN-AMERICAN > 60.0 ml/min (>90); GFR NON AFRICAN-AMERICAN > 60.0 ml/min; GLUCOSE 125 mg/dL (70-105); POTASSIUM SERUM 3.6 mEq/L (3.5-5.1); SODIUM SERUM 138 mEq/L (136-145)
[2018-06-22] MEDS: Potassium Chloride 20 mEq ER Tab PO SCH (08:28)
[2018-06-22] MEDS: Aspirin 81mg Chewable Tab GT SCH (08:28)
[2018-06-22] MEDS: Ferrous Sulfate 300 MG/5 ML UDC GT SCH (08:28)
[2018-06-22] MEDS: Docusate Sodium 100 mg/10 mL UD GT SCH (08:28)
[2018-06-22] MEDS: Lactobacillus Rhamnosus GG 15 Billion CFU CAP.SPRINK GT SCH (08:29)
[2018-06-22 09:01] LABS: % BASOPHILS 0.5 % (0.0-2.0); % EOSINOPHILS 2.1 % (0.0-5.0); % LYMPHOCYTES 13.9 % (20.0-50.0); % MONOCYTES 7.8 % (2.0-10.0); % NEUTROPHILS 75.7 % (40.0-80.0); EOSINOPHILE ABSOLUTE 0.2 Th/cmm (0.1-0.4); HEMATOCRIT 38.7 % (41.0-60); HEMOGLOBIN 12.6 gm/dL (12-16); LYMPHOCYTE ABSOLUTE 1.2 Th/cmm (1.5-3.0); MEAN CELL VOLUME 87.3 fl (80-99); MEAN CORPUSCULAR HEMOGLOBIN 28.4 pg (26.0-30.0); MEAN CORPUSCULAR HGB CONC 32.6 pg (28.0-36.0); MEAN PLATELET VOLUME 8.6 fl; MONOCYTE ABSOLUTE 0.7 Th/cmm (0.3-1.0); NEUTROPHILE ABSOLUTE 6.6 Th/cmm (1.8-8.0); PLATELET COUNT 297 Th/cmm (150-400); RED BLOOD COUNT 4.43 Mil/cmm (4.30-5.70); RED CELL DISTRIBUTION WIDTH 14.7 % (11.5-20.0); WHITE BLOOD COUNT 8.7 Th/cmm (4.8-10.8)
--- NOTE | 2018-06-22 09:54 | Consultation ---
DATE OF CONSULTATION: 06/22/2018 PATIENT'S AGE: 58-year-old. SEX: Male. PHYSICIAN: Dr. Sanders. TYPE OF THE REPORT: Psychiatric consult. REASON FOR THE CONSULT: Agitation. HISTORY OF PRESENT ILLNESS: The patient is a 58-year-old male who was admitted to the hospital and since his admission the patient has been extremely irritable and extremely agitated. The patient also has been restless. The patient also has not been able to follow staff directions or instructions. Has been fighting and aggressive with the staff. The patient also has been having difficulty with his mood. He has history of what seems to be schizophrenia. PAST PSYCHIATRIC HISTORY: The patient has history of what seems to be schizophrenia. The patient is on Seroquel. PAST MEDICAL HISTORY: As per Dr. Sanders. SOCIAL HISTORY: The patient lives in a shelter in the [place]. No known alcohol or drug use. No known legal issues. MENTAL STATUS EXAM: The patient appears his stated age. Anxious. Irritable mood. Uncooperative. Unable to answer any of my questions coherently. The patient did not answer questions regarding hallucinations or delusions or regarding suicide or homicide, but he is aggressive and agitated with the staff. The patient is alert, but unable to assess orientation or memory at this time because of agitation. ASSESSMENT: PRIMARY DIAGNOSIS: Chronic paranoid schizophrenia with acute exacerbation. TREATMENT PLAN: We will monitor the patient's behavior and condition closely. We will change Seroquel to 100 mg 3 times a day and we will monitor the dose. Also, we will give Ativan on a p.r.n. basis. The patient also might be a candidate for Geropsych unit. JOB# [id number]
--- NOTE | 2018-06-22 10:39 | Progress Notes ---
DATE: 06/22/2018 SUBJECTIVE: The patient was seen in room with a 1:1 sitter for safety. The patient is a poor historian due to medical condition. Otherwise, the patient is in no acute distress. OBJECTIVE: VITAL SIGNS: Temperature 97, heart rate 94, blood pressure 132/77, respirations 20, 100% on room air. HEENT: Head is atraumatic and normocephalic. Eyes: Bilateral conjunctivae are clear. Bilateral pupils are equally round and reactive. NECK: Supple. No JVD. CARDIOVASCULAR: S1 and S2 without murmur. PULMONARY: Decreased breath sounds. GASTROINTESTINAL: Soft and nontender without guarding. Positive bowel sounds. MUSCULOSKELETAL: No clubbing. No cyanosis noted. ASSESSMENT: 1. Acute altered level of consciousness. 2. Urinary tract infection. 3. Encephalopathy. 4. Osteoarthritis. 5. Iron deficiency anemia. 6. Diabetes. PLAN: We will continue current treatments. We will continue current antibiotics and we will repeat CBC, CMP and ammonia level in the morning. Treatment plans were discussed with the patient's nurse. Treatment plans were discussed with Dr. Sanders. JOB# [id number]
--- NOTE | 2018-06-22 12:03 | GI Progress Note ---
Subjective - Review of Systems Service Date: 06/22/18 Events since last encounter: No events Subjective: eating good per staff Objective - Results Result Diagrams: 06/22/18 07:24 06/22/18 07:24 Recent Labs: Laboratory Last Values WBC 8.7 Th/cmm (4.8-10.8) 06/22/18 07:24 RBC 4.43 Mil/cmm (4.30-5.70) 06/22/18 07:24 Hgb 12.6 gm/dL (12-16) 06/22/18 07:24 Hct 38.7 % (41.0-60) L 06/22/18 07:24 MCV 87.3 fl (80-99) 06/22/18 07:24 MCH 28.4 pg (26.0-30.0) 06/22/18 07:24 MCHC Differential 32.6 pg (28.0-36.0) 06/22/18 07:24 RDW 14.7 % (11.5-20.0) 06/22/18:24 Plt Count 297 Th/cmm (150-400) 06/22/18 07:24 MPV 8.6 fl 06/22/18 07:24 Neutrophils % 75.7 % (40.0-80.0) 06/22/18 07:24 Lymphocytes % 13.9 % (20.0-50.0) L 06/22/18 07:24 Monocytes % 7.8 % (2.0-10.0) 06/22/18 07:24 Eosinophils % 2.1 % (0.0-5.0) 06/22/18:24 Basophils % 0.5 % (0.0-2.0) 06/22/18 07:24 PT 10.7 SECONDS (9.5-11.5) 06/22/18 07:24 INR 1.03 (0.5-1.4) 06/22/18 07:24 Sodium 138 mEq/L (136-145) 06/22/18 07:24 Potassium 3.6 mEq/L (3.5-5.1) 06/22/18 07:24 Chloride 106 mEq/L (98-107) 06/22/18 07:24 Carbon Dioxide 24.2 mEq/L (21.0-31.0) 06/22/18 07:24 Anion Gap 11.4 (7.0-16.0) 06/22/18 07:24 BUN 7 mg/dL (7-25) 06/22/18 07:24 Creatinine 0.8 mg/dL (0.7-1.3) 06/22/18 07:24 Est GFR ( Amer) > 60.0 ml/min (>90) 06/22/18 07:24 Est GFR (Non-Af Amer) > 60.0 ml/min 06/22/18 07:24 BUN/Creatinine Ratio 8.8 06/22/18 07:24 Glucose 125 mg/dL (70-105) H 06/22/18 07:24 POC Glucose 115 MG/DL (70 - 105) H 06/22/18 11:51 Whole Bld Lactic Acid 0.89 mmol/L (0.60-1.99) 06/21/18 00:10 Calcium 9.0 mg/dL (8.6-10.3) 06/22/18 07:24 Total Bilirubin 0.4 mg/dL (0.3-1.0) 06/21/18 00:10 AST 18 U/L (13-39) 06/21/18 00:10 ALT 15 U/L (7-52) 06/21/18 00:10 Alkaline Phosphatase 106 U/L (34-104) H 06/21/18 00:10 Ammonia 87 umol/L (16-53) H 06/21/18 00:10 Total Protein 6.2 gm/dL (6.0-8.3) 06/21/18 00:10 Albumin 3.4 gm/dL (4.2-5.5) L 06/21/18 00:10 Globulin 2.8 gm/dL 06/21/18 00:10 Albumin/Globulin Ratio 1.2 (1.0-1.8) 06/21/18 00:10 Triglycerides 83 mg/dL (<150) 06/21/18 00:10 Cholesterol 133 mg/dL (<200) 06/21/18 00:10 LDL Cholesterol Direct 78 mg/dL (75-193) 06/21/18 00:10 HDL Cholesterol 33 mg/dL (23-92) 06/21/18 00:10 TSH 0.51 uIU/ml (0.34-5.60) 06/21/18 00:10 Urine Source CLEAN C 06/21/18 02:45 Urine Color ORANGE 06/21/18 02:45 Urine Clarity HAZY (CLEAR) 06/21/18 02:45 Urine pH 6.0 (4.6 - 8.0) 06/21/18 02:45 Ur Specific [place] 1.025 (1.005-1.030) 06/21/18 02:45 Urine Protein 30 mg/dL (NEGATIVE) H 06/21/18 02:45 Urine Glucose (UA) NEGATIVE mg/dL (NEGATIVE) 06/21/18 02:45 Urine Ketones 15 mg/dL (NEGATIVE) H 06/21/18 02:45 Urine Blood NEGATIVE (NEGATIVE) 06/21/18 02:45 Urine Nitrate NEGATIVE (NEGATIVE) 06/21/18 02:45 Urine Bilirubin MODERATE (NEGATIVE) H 06/21/18 02:45 Urine Ictotest NEGATIVE (NEGATIVE) 06/21/18 02:45 Urine Urobilinogen 1.0 E.U./dL (0.2 - 1.0) 06/21/18 02:45 Ur Leukocyte Esterase NEGATIVE (NEGATIVE) 06/21/18 02:45 Urine RBC 0-2 /hpf (0-5) H 06/21/18 02:45 Urine WBC 0-2 /hpf (0-5) 06/21/18 02:45 Ur Epithelial Cells FEW /lpf (FEW) 06/21/18 02:45 Urine Bacteria OCCASIONAL /hpf (NONE SEEN) 06/21/18 02:45 Urine Mucus MODERATE /lpf (FEW) 06/21/18 02:45 Salicylates < 25.0 mg/L (30.0-100.0) L 06/21/18 00:10 Urine Opiates Screen NEGATIVE (NEGATIVE) 06/21/18 02:45 Urine Methadone Screen NEGATIVE (NEGATIVE) 06/21/18 02:45 Acetaminophen < 10.0 ug/mL (10.0-30.0) L 06/21/18 00:10 Ur Barbiturates Screen NEGATIVE (NEGATIVE) 06/21/18 02:45 Ur Tricyclics Screen POSITIVE (NEGATIVE) H 06/21/18 02:45 Ur Phencyclidine Scrn NEGATIVE (NEGATIVE) 06/21/18 02:45 Amphetamines Screen NEGATIVE (NEGATIVE) 06/21/18 02:45 U Methamphetamines Scrn NEGATIVE (NEGATIVE) 06/21/18 02:45 U Benzodiazepines Scrn POSITIVE (NEGATIVE) H 06/21/18 02:45 U Cocaine Metab Screen NEGATIVE (NEGATIVE) 06/21/18 02:45 U Cannabinoids Screen NEGATIVE (NEGATIVE) 06/21/18 02:45 Ethyl Alcohol < 10 mg/dL (0-10) 06/21/18 00:10 - Physical Exam Vitals and I&O: Vital Signs Temp 97 F 06/22/18 10:18 Pulse 94 06/22/18 10:18 Resp 20 06/22/18 10:18 BP 123/77 06/22/18 10:18 Pulse Ox 100 06/22/18 08:00 Intake & Output 06/21/18 06/22/18 06/22/18 18:59 06:59 18:59 Intake Total 430 Output Total 4 Balance 426 Weight (lbs) 92.079 kg Intake: Intake, IV Amount 50 cefTRIAXone 1 gm In 50 Sodium Chloride 0.9% 50 ml @ 100 mls/hr IV Q24HR [facility] Rx#:[id number] Oral 380 Output: Urine 4 Other: # Voids 3 # Bowel Movements 1 Stool Characteristics Soft Brown Weight Source Bedscale Active Medications: Current Medications Acetaminophen (Tylenol) 650 mg GT Q6HR PRN PRN Reason: Mild Pain or Fever >101 Stop: 08/20/18 08:20 Last Admin: 06/21/18 21:21 Dose: 650 mg Acetaminophen (Tylenol Extra Strength) 1,000 mg GT Q8H PRN PRN Reason: Pain (Moderate) Stop: 08/20/18 08:20 Albuterol Sulfate (Albuterol 2.5mg/3ml Neb Ud) 2.5 mg HHN BID PRN PRN Reason: Shortness of Breath Ascorbic Acid (Vitamin C) 500 mg GT DAILY [facility] Stop: 08/20/18 10:59 Last Admin: 06/22/18 08:28 Dose: 500 mg Aspirin (Aspirin Chewable) 81 mg GT DAILY [facility] Stop: 08/20/18 08:59 Last Admin: 06/22/18 08:28 Dose: 81 mg Bisacodyl (Dulcolax 10 Mg Supp) 10 mg RC DAILY PRN PRN Reason: Constipation Stop: 08/20/18 08:20 Docusate Sodium (Colace) 100 mg GT DAILY [facility] Stop: 08/20/18 10:59 Last Admin: 06/22/18 08:28 Dose: 100 mg Ferrous Sulfate (Iron) 450 mg GT DAILY [facility] Stop: 08/20/18 10:59 Last Admin: 06/22/18 08:28 Dose: 450 mg Heparin Sodium (Porcine) (Heparin) 5,000 units SUBQ Q12H [facility] Stop: 08/20/18 20:59 Last Admin: 06/22/18 08:29 Dose: 5,000 units Hydroxyzine HCl (Atarax) 10 mg GT TID PRN; Protocol PRN Reason: PRURITUS Stop: 08/20/18 08:20 Dextrose/Sodium Chloride (D5-0.45ns) 1,000 mls @ 50 mls/hr IV .Q20H [facility] Stop: 08/20/18 08:12 Last Admin: 06/21/18 18:44 Dose: 50 mls/hr Ceftriaxone Sodium 1 gm/ (Sodium Chloride) 50 mls @ 100 mls/hr IV Q24HR [facility] Stop: 08/20/18 21:59 Last Infusion: 06/21/18 21:50 Dose: Infused Insulin Aspart (Novolog Insulin Sliding Scale) 0 units SUBQ ACHS [facility]; Protocol Stop: 08/20/18 11:29 Last Admin: 06/22/18 11:56 Dose: Not Given Lactobacillus Rhamnosus (Culturelle 15b) 1 each GT DAILY [facility] Stop: 08/20/18 10:59 Last Admin: 06/22/18 08:29 Dose: 1 each Lactulose (Cephulac) 30 gm PO Q6HR [facility] Stop: 08/20/18 08:59 Last Admin: 06/22/18 05:40 Dose: 30 gm Lorazepam (Ativan) 0.5 mg GT Q6H PRN; Protocol PRN Reason: Anxiety Stop: 08/20/18 08:20 Lorazepam (Ativan) 2 mg IVP Q6HR PRN; Protocol PRN Reason: Agitation Stop: 08/20/18 08:10 Magnesium Hydroxide (Milk Of Magnesia) 30 ml GT HS PRN PRN Reason: Constipation Stop: 08/20/18 08:20 Midodrine (Proamatine) 5 mg GT TID [facility] Stop: 08/20/18 08:59 Last Admin: 06/22/18 08:28 Dose: 5 mg Miscellaneous (Vte Chemical Prophylaxis Screen/ Admission) 1 ea MC PRN PRN PRN Reason: PROTOCOL Stop: 08/20/18 12:59 Pantoprazole Sodium (Protonix) 40 mg GT QDAC [facility] Stop: 08/20/18 11:29 Last Admin: 06/22/18 06:47 Dose: 40 mg Pioglitazone HCl (Actos) 15 mg GT DAILY [facility] Stop: 08/20/18 08:59 Last Admin: 06/22/18 08:29 Dose: 15 mg Potassium Chloride (Klor-Con) 20 meq PO DAILY [facility] Stop: 08/20/18 08:59 Last Admin: 06/22/18 08:28 Dose: 20 meq Quetiapine Fumarate (Seroquel Xr) 100 mg PO TID [facility]; Protocol Stop: 08/21/18 08:59 Last Admin: 06/22/18 09:57 Dose: 100 mg Sodium Phosphate (Fleet Enema) 135 ml RC Q48H PRN PRN Reason: Constipation Stop: 08/20/18 08:20 Zolpidem Tartrate (Ambien) 10 mg GT HS [facility] Stop: 08/21/18 20:59 General: No acute distress Cardiovascular: Regular rate, Normal S1, Normal S2 Lungs: Clear to auscultation, Normal air movement Abdomen: Bowel sounds, Soft - Procedures Procedures: Procedures Procedure Code Date ASSISTANCE WITH RESPIRATORY VENTILATION, <24 HRS, CPAP [id number] 06/01/18 Assessment/Plan - Assessment Assessment: Dysphagia - Plan Plan: Dysphagia Improved EGD and PEG removal on Sunday
[2018-06-22] MEDS: cefTRIAXone 1 GM in Sodium Chloride 0.9% 50 ML IV SCH (21:58)
[2018-06-23] MEDS: Acetaminophen 500 MG TAB GT PRN ×2 (01:14→22:12)
--- NOTE | 2018-06-23 05:33 | Progress Notes ---
DATE: 06/23/2018 PSYCHIATRIC PROGRESS NOTE SUBJECTIVE: Chart reviewed and the patient interviewed. Also discussed the patient's condition with the staff and reviewed records and labs. The patient is still severely agitated. The patient almost did not sleep last night. The patient is still having episode of resisting care and yelling and screaming at times with difficulty following directions. The patient also although in a Sara chair, yet he is resisting care and he is still fighting to get off the chair and he is in hand mittens. Otherwise, the patient took his medications with no side effects of medications. ASSESSMENT: The patient is still agitated and in irritable mood. TREATMENT PLAN: Continue monitoring his behavior. Also, we will increase Seroquel to 200 mg b.i.d. and 200 mg at bedtime. Also, we will give Ativan in a dose of 1 mg 3 times a day on a routine basis to help with his agitation and will continue to follow up. [facility]# [id number]
[2018-06-23 06:31] LABS: % BASOPHILS 0.4 % (0.0-2.0); % EOSINOPHILS 5.4 % (0.0-5.0); % LYMPHOCYTES 22.8 % (20.0-50.0); % MONOCYTES 9.4 % (2.0-10.0); EOSINOPHILE ABSOLUTE 0.5 Th/cmm (0.1-0.4); HEMATOCRIT 37.4 % (41.0-60); LYMPHOCYTE ABSOLUTE 1.9 Th/cmm (1.5-3.0); MEAN CELL VOLUME 86.6 fl (80-99); MEAN CORPUSCULAR HEMOGLOBIN 27.9 pg (26.0-30.0); MEAN CORPUSCULAR HGB CONC 32.2 pg (28.0-36.0); MEAN PLATELET VOLUME 7.7 fl; MONOCYTE ABSOLUTE 0.8 Th/cmm (0.3-1.0); NEUTROPHILE ABSOLUTE 5.2 Th/cmm (1.8-8.0); PLATELET COUNT 306 Th/cmm (150-400); RED BLOOD COUNT 4.32 Mil/cmm (4.30-5.70); WHITE BLOOD COUNT 8.4 Th/cmm (4.8-10.8)
[2018-06-23] MEDS: Pantoprazole 40 mg/Packet GT SCH (06:42)
[2018-06-23] MEDS: Lactulose 10 Gm/15 mL 30mL UDC PO SCH ×3 (06:42→19:20)
[2018-06-23] MEDS: INSULIN ASPART SLIDING SCALE 100 UNITS/ML UNIT SUBQ SCH ×4 (06:46→22:04)
[2018-06-23 06:58] LABS: ALB/GLOB RATIO 1.3 (1.0-1.8); ALBUMIN 3.4 gm/dL (4.2-5.5); ALKALINE PHOSPHATASE 103 U/L (34-104); ANION GAP 11.1 (7.0-16.0); BILIRUBIN,TOTAL 0.2 mg/dL (0.3-1.0); BUN - UREA NITROGEN 8 mg/dL (7-25); CALCIUM SERUM 8.7 mg/dL (8.6-10.3); CARBON DIOXIDE 23.7 mEq/L (21.0-31.0); CHLORIDE 108 mEq/L (98-107); CREATININE - SERUM 0.8 mg/dL (0.7-1.3); GFR AFRICAN-AMERICAN > 60.0 ml/min (>90); GFR NON AFRICAN-AMERICAN > 60.0 ml/min; GLUCOSE 115 mg/dL (70-105); POTASSIUM SERUM 3.8 mEq/L (3.5-5.1); SGOT 19 U/L (13-39); SGPT/ALT 13 U/L (7-52); SODIUM SERUM 139 mEq/L (136-145); TOTAL PROTEIN,SERUM 6.1 gm/dL (6.0-8.3)
[2018-06-23] MEDS: Albuterol Nebulizer 2.5mg/3mL HHN PRN (08:38)
[2018-06-23] MEDS: Docusate Sodium 100 mg/10 mL UD GT SCH (08:57)
[2018-06-23] MEDS: Ferrous Sulfate 300 MG/5 ML UDC GT SCH (08:57)
[2018-06-23] MEDS: Aspirin 81mg Chewable Tab GT SCH (08:58)
[2018-06-23] MEDS: Potassium Chloride 20 mEq ER Tab PO SCH (09:03)
[2018-06-23] MEDS: Lactobacillus Rhamnosus GG 15 Billion CFU CAP.SPRINK GT SCH (09:03)
--- NOTE | 2018-06-23 09:19 | General Progress Note ---
Subjective - Review of Systems Events since last encounter: patient agitated irritable in psych chair Objective - Results Result Diagrams: 06/23/18 06:09 06/23/18 06:09 Recent Labs: Laboratory Last Values WBC 8.4 Th/cmm (4.8-10.8) 06/23/18 06:09 RBC 4.32 Mil/cmm (4.30-5.70) 06/23/18 06:09 Hgb 12.0 gm/dL (12-16) 06/23/18 06:09 Hct 37.4 % (41.0-60) L 06/23/18 06:09 MCV 86.6 fl (80-99) 06/23/18 06:09 MCH 27.9 pg (26.0-30.0) 06/23/18 06:09 MCHC Differential 32.2 pg (28.0-36.0) 06/23/18 06:09 RDW 15.0 % (11.5-20.0) 06/23/18 06:09 Plt Count 306 Th/cmm (150-400) 06/23/18 06:09 MPV 7.7 fl 06/23/18 06:09 Neutrophils % 62.0 % (40.0-80.0) 06/23/18 06:09 Lymphocytes % 22.8 % (20.0-50.0) 06/23/18 06:09 Monocytes % 9.4 % (2.0-10.0) 06/23/18 06:09 Eosinophils % 5.4 % (0.0-5.0) H 06/23/18 06:09 Basophils % 0.4 % (0.0-2.0) 06/23/18 06:09 PT 10.7 SECONDS (9.5-11.5) 06/22/18 07:24 INR 1.03 (0.5-1.4) 06/22/18 07:24 Sodium 139 mEq/L (136-145) 06/23/18 06:09 Potassium 3.8 mEq/L (3.5-5.1) 06/23/18 06:09 Chloride 108 mEq/L (98-107) H 06/23/18 06:09 Carbon Dioxide 23.7 mEq/L (21.0-31.0) 10/07/18 06:09 Anion Gap 11.1 (7.0-16.0) 06/23/18 06:09 BUN 8 mg/dL (7-25) 06/23/18 06:09 Creatinine 0.8 mg/dL (0.7-1.3) 06/23/18 06:09 Est GFR ( Amer) > 60.0 ml/min (>90) 06/23/18 06:09 Est GFR (Non-Af Amer) > 60.0 ml/min 06/23/18 06:09 BUN/Creatinine Ratio 10.0 06/23/18 06:09 Glucose 115 mg/dL (70-105) H 06/23/18 06:09 POC Glucose 106 MG/DL (70 - 105) H 06/23/18 06:33 Whole Bld Lactic Acid 0.89 mmol/L (0.60-1.99) 06/21/18 00:10 Calcium 8.7 mg/dL (8.6-10.3) 06/23/18 06:09 Total Bilirubin 0.2 mg/dL (0.3-1.0) L 06/23/18 06:09 AST 19 U/L (13-39) 06/23/18 06:09 ALT 13 U/L (7-52) 06/23/18 06:09 Alkaline Phosphatase 103 U/L (34-104) 06/23/18 06:09 Ammonia 53 umol/L (16-53) 06/23/18 06:09 Total Protein 6.1 gm/dL (6.0-8.3) 06/23/18 06:09 Albumin 3.4 gm/dL (4.2-5.5) L 06/23/18 06:09 Globulin 2.7 gm/dL 06/23/18 06:09 Albumin/Globulin Ratio 1.3 (1.0-1.8) 06/23/18 06:09 Triglycerides 83 mg/dL (<150) 06/21/18 00:10 Cholesterol 133 mg/dL (<200) 06/21/18 00:10 LDL Cholesterol Direct 78 mg/dL (75-193) 06/21/18 00:10 HDL Cholesterol 33 mg/dL (23-92) 06/21/18 00:10 TSH 0.51 uIU/ml (0.34-5.60) 06/21/18 00:10 Urine Source CLEAN C 06/21/18 02:45 Urine Color ORANGE 06/21/18 02:45 Urine Clarity HAZY (CLEAR) 06/21/18 02:45 Urine pH 6.0 (4.6 - 8.0) 06/21/18 02:45 Ur Specific [place] 1.025 (1.005-1.030) 06/21/18 02:45 Urine Protein 30 mg/dL (NEGATIVE) H 06/21/18 02:45 Urine Glucose (UA) NEGATIVE mg/dL (NEGATIVE) 06/21/18 02:45 Urine Ketones 15 mg/dL (NEGATIVE) H 06/21/18 02:45 Urine Blood NEGATIVE (NEGATIVE) 06/21/18 02:45 Urine Nitrate NEGATIVE (NEGATIVE) 06/21/18 02:45 Urine Bilirubin MODERATE (NEGATIVE) H 06/21/18 02:45 Urine Ictotest NEGATIVE (NEGATIVE) 06/21/18 02:45 Urine Urobilinogen 1.0 E.U./dL (0.2 - 1.0) 06/21/18 02:45 Ur Leukocyte Esterase NEGATIVE (NEGATIVE) 06/21/18 02:45 Urine RBC 0-2 /hpf (0-5) H 06/21/18 02:45 Urine WBC 0-2 /hpf (0-5) 06/21/18 02:45 Ur Epithelial Cells FEW /lpf (FEW) 06/21/18 02:45 Urine Bacteria OCCASIONAL /hpf (NONE SEEN) 06/21/18 02:45 Urine Mucus MODERATE /lpf (FEW) 06/21/18 02:45 Salicylates < 25.0 mg/L (30.0-100.0) L 06/21/18 00:10 Urine Opiates Screen NEGATIVE (NEGATIVE) 06/21/18 02:45 Urine Methadone Screen NEGATIVE (NEGATIVE) 06/21/18 02:45 Acetaminophen < 10.0 ug/mL (10.0-30.0) L 06/21/18 00:10 Ur Barbiturates Screen NEGATIVE (NEGATIVE) 06/21/18 02:45 Ur Tricyclics Screen POSITIVE (NEGATIVE) H 06/21/18 02:45 Ur Phencyclidine Scrn NEGATIVE (NEGATIVE) 06/21/18 02:45 Amphetamines Screen NEGATIVE (NEGATIVE) 06/21/18 02:45 U Methamphetamines Scrn NEGATIVE (NEGATIVE) 06/21/18 02:45 U Benzodiazepines Scrn POSITIVE (NEGATIVE) H 06/21/18 02:45 U Cocaine Metab Screen NEGATIVE (NEGATIVE) 06/21/18 02:45 U Cannabinoids Screen NEGATIVE (NEGATIVE) 06/21/18 02:45 Ethyl Alcohol < 10 mg/dL (0-10) 06/21/18 00:10 RPR NONREACTIVE (NONREACTIVE) 06/21/18 00:10 - Physical Exam Vitals and I&O: Vital Signs Temp 98.7 F 06/23/18 04:00 Pulse 91 06/23/18 08:35 Resp 18 06/23/18 08:47 BP 122/69 06/23/18 04:00 Pulse Ox 99 06/23/18 08:35 Intake & Output 06/22/18 06/23/18 06/23/18 18:59 06:59 18:59 Intake Total 750 150 Output Total 1 Balance 749 150 Weight (lbs) 92.079 kg 92.079 kg Intake: Oral 750 150 Output: Stool 1 Other: # Voids 4 2 # Bowel Movements 1 Weight Source Bedscale Bedscale Active Medications: Current Medications Acetaminophen (Tylenol) 650 mg GT Q6HR PRN PRN Reason: Mild Pain or Fever >101 Stop: 08/20/18 08:20 Last Admin: 06/21/18 21:21 Dose: 650 mg Acetaminophen (Tylenol Extra Strength) 1,000 mg GT Q8H PRN PRN Reason: Pain (Moderate) Stop: 08/20/18 08:20 Last Admin: 06/23/18 01:14 Dose: 1,000 mg Albuterol Sulfate (Albuterol 2.5mg/3ml Neb Ud) 2.5 mg HHN BID PRN PRN Reason: Shortness of Breath Last Admin: 06/23/18 08:38 Dose: 2.5 mg Ascorbic Acid (Vitamin C) 500 mg GT DAILY [facility] Stop: 08/20/18 10:59 Last Admin: 06/23/18 08:57 Dose: 500 mg Aspirin (Aspirin Chewable) 81 mg GT DAILY [facility] Stop: 08/20/18 08:59 Last Admin: 06/23/18 08:58 Dose: 81 mg Bisacodyl (Dulcolax 10 Mg Supp) 10 mg RC DAILY PRN PRN Reason: Constipation Stop: 08/20/18 08:20 Docusate Sodium (Colace) 100 mg GT DAILY [facility] Stop: 08/20/18 10:59 Last Admin: 06/23/18 08:57 Dose: 100 mg Ferrous Sulfate (Iron) 450 mg GT DAILY [facility] Stop: 08/20/18 10:59 Last Admin: 06/23/18 08:57 Dose: 450 mg Heparin Sodium (Porcine) (Heparin) 5,000 units SUBQ Q12H [facility] Stop: 08/20/18 20:59 Last Admin: 06/23/18 09:04 Dose: 5,000 units Hydroxyzine HCl (Atarax) 10 mg GT TID PRN; Protocol PRN Reason: PRURITUS Stop: 08/20/18 08:20 Dextrose/Sodium Chloride (D5-0.45ns) 1,000 mls @ 50 mls/hr IV .Q20H [facility] Stop: 08/20/18 08:12 Last Admin: 06/21/18 18:44 Dose: 50 mls/hr Ceftriaxone Sodium 1 gm/ (Sodium Chloride) 50 mls @ 100 mls/hr IV Q24HR [facility] Stop: 08/20/18 21:59 Last Admin: 06/22/18 21:58 Dose: 100 mls/hr Insulin Aspart (Novolog Insulin Sliding Scale) 0 units SUBQ ACHS [facility]; Protocol Stop: 08/20/18 11:29 Last Admin: 06/23/18 06:46 Dose: Not Given Lactobacillus Rhamnosus (Culturelle 15b) 1 each GT DAILY [facility] Stop: 08/20/18 10:59 Last Admin: 06/23/18 09:03 Dose: 1 each Lactulose (Cephulac) 30 gm PO Q6HR [facility] Stop: 08/20/18 08:59 Last Admin: 06/23/18 06:42 Dose: 30 gm Lorazepam (Ativan) 0.5 mg GT Q6H PRN; Protocol PRN Reason: Anxiety Stop: 08/20/18 08:20 Lorazepam (Ativan) 2 mg IVP Q6HR PRN; Protocol PRN Reason: Agitation Stop: 08/20/18 08:10 Last Admin: 06/22/18 23:23 Dose: 2 mg Lorazepam (Ativan) 1 mg PO TID [facility]; Protocol Stop: 08/22/18 08:59 Last Admin: 06/23/18 08:59 Dose: 1 mg Magnesium Hydroxide (Milk Of Magnesia) 30 ml GT HS PRN PRN Reason: Constipation Stop: 08/20/18 08:20 Midodrine (Proamatine) 5 mg GT TID [facility] Stop: 08/20/18 08:59 Last Admin: 06/23/18 09:04 Dose: Not Given Miscellaneous (Vte Chemical Prophylaxis Screen/ Admission) 1 ea MC PRN PRN PRN Reason: PROTOCOL Stop: 08/20/18 12:59 Pantoprazole Sodium (Protonix) 40 mg GT QDAC [facility] Stop: 08/20/18 11:29 Last Admin: 06/23/18 06:42 Dose: 40 mg Pioglitazone HCl (Actos) 15 mg GT DAILY WINIFRED Stop: 08/20/18 08:59 Last Admin: 06/23/18 08:58 Dose: 15 mg Potassium Chloride (Klor-Con) 20 meq PO DAILY WINIFRED Stop: 08/20/18 08:59 Last Admin: 06/23/18 09:03 Dose: 20 meq Quetiapine Fumarate (Seroquel Xr) 200 mg PO BID WINIFRED; Protocol Stop: 08/22/18 08:59 Last Admin: 06/23/18 08:58 Dose: 200 mg Sodium Phosphate (Fleet Enema) 135 ml RC Q48H PRN PRN Reason: Constipation Stop: 08/20/18 08:20 Zolpidem Tartrate (Ambien) 10 mg GT HS WINIFRED Stop: 08/21/18 20:59 Last Admin: 06/22/18 21:58 Dose: 10 mg General: No acute distress Cardiovascular: Regular rate, Normal S1, Normal S2 Lungs: Clear to auscultation, Normal air movement Abdomen: Bowel sounds, Soft - Procedures Procedures: Procedures Procedure Code Date ASSISTANCE WITH RESPIRATORY VENTILATION, <24 HRS, CPAP [id number] 06/01/18 Assessment/Plan - Problem List Patient Problems: All Active Problems Altered level of consciousness (Acute) R40.4 Diabetes (Acute) E11.9 Encephalopathy (Acute) G93.40 Iron deficiency (Acute) E61.1 Osteoarthritis (Acute) M19.90 UTI (urinary tract infection) (Acute) - Plan Plan: as per psych will monitor
[2018-06-23] MEDS ORDERED: Probiotic Screen MC PRN (14:30)
--- NOTE | 2018-06-23 16:22 | GI Progress Note ---
Subjective - Review of Systems Service Date: 06/23/18 Events since last encounter: No events Subjective: eating good per staff Objective - Results Result Diagrams: 06/23/18 06:09 06/23/18 06:09 Recent Labs: Laboratory Last Values WBC 8.4 Th/cmm (4.8-10.8) 06/23/18 06:09 RBC 4.32 Mil/cmm (4.30-5.70) 06/23/18 06:09 Hgb 12.0 gm/dL (12-16) 06/23/18 06:09 Hct 37.4 % (41.0-60) L 06/23/18 06:09 MCV 86.6 fl (80-99) 06/23/18 06:09 MCH 27.9 pg (26.0-30.0) 06/23/18 06:09 MCHC Differential 32.2 pg (28.0-36.0) 06/23/18 06:09 RDW 15.0 % (11.5-20.0) 06/23/18 06:09 Plt Count 306 Th/cmm (150-400) 06/23/18 06:09 MPV 7.7 fl 06/23/18 06:09 Neutrophils % 62.0 % (40.0-80.0) 06/23/18 06:09 Lymphocytes % 22.8 % (20.0-50.0) 06/23/18 06:09 Monocytes % 9.4 % (2.0-10.0) 06/23/18 06:09 Eosinophils % 5.4 % (0.0-5.0) H 06/23/18 06:09 Basophils % 0.4 % (0.0-2.0) 06/23/18 06:09 PT 10.7 SECONDS (9.5-11.5) 06/22/18 07:24 INR 1.03 (0.5-1.4) 06/22/18 07:24 Sodium 139 mEq/L (136-145) 06/23/18 06:09 Potassium 3.8 mEq/L (3.5-5.1) 06/23/18 06:09 Chloride 108 mEq/L (98-107) H 06/23/18 06:09 Carbon Dioxide 23.7 mEq/L (21.0-31.0) 10/07/18 06:09 Anion Gap 11.1 (7.0-16.0) 06/23/18 06:09 BUN 8 mg/dL (7-25) 06/23/18 06:09 Creatinine 0.8 mg/dL (0.7-1.3) 06/23/18 06:09 Est GFR ( Amer) > 60.0 ml/min (>90) 06/23/18 06:09 Est GFR (Non-Af Amer) > 60.0 ml/min 06/23/18 06:09 BUN/Creatinine Ratio 10.0 06/23/18 06:09 Glucose 115 mg/dL (70-105) H 06/23/18 06:09 POC Glucose 115 MG/DL (70 - 105) H 06/23/18 11:20 Whole Bld Lactic Acid 0.89 mmol/L (0.60-1.99) 06/21/18 00:10 Calcium 8.7 mg/dL (8.6-10.3) 06/23/18 06:09 Total Bilirubin 0.2 mg/dL (0.3-1.0) L 06/23/18 06:09 AST 19 U/L (13-39) 06/23/18 06:09 ALT 13 U/L (7-52) 06/23/18 06:09 Alkaline Phosphatase 103 U/L (34-104) 06/23/18 06:09 Ammonia 53 umol/L (16-53) 06/23/18 06:09 Total Protein 6.1 gm/dL (6.0-8.3) 06/23/18 06:09 Albumin 3.4 gm/dL (4.2-5.5) L 06/23/18 06:09 Globulin 2.7 gm/dL 06/23/18 06:09 Albumin/Globulin Ratio 1.3 (1.0-1.8) 06/23/18 06:09 Triglycerides 83 mg/dL (<150) 06/21/18 00:10 Cholesterol 133 mg/dL (<200) 06/21/18 00:10 LDL Cholesterol Direct 78 mg/dL (75-193) 06/21/18 00:10 HDL Cholesterol 33 mg/dL (23-92) 06/21/18 00:10 TSH 0.51 uIU/ml (0.34-5.60) 06/21/18 00:10 Urine Source CLEAN C 06/21/18 02:45 Urine Color ORANGE 06/21/18 02:45 Urine Clarity HAZY (CLEAR) 06/21/18 02:45 Urine pH 6.0 (4.6 - 8.0) 06/21/18 02:45 Ur Specific [place] 1.025 (1.005-1.030) 06/21/18 02:45 Urine Protein 30 mg/dL (NEGATIVE) H 06/21/18 02:45 Urine Glucose (UA) NEGATIVE mg/dL (NEGATIVE) 06/21/18 02:45 Urine Ketones 15 mg/dL (NEGATIVE) H 06/21/18 02:45 Urine Blood NEGATIVE (NEGATIVE) 06/21/18 02:45 Urine Nitrate NEGATIVE (NEGATIVE) 06/21/18 02:45 Urine Bilirubin MODERATE (NEGATIVE) H 06/21/18 02:45 Urine Ictotest NEGATIVE (NEGATIVE) 06/21/18 02:45 Urine Urobilinogen 1.0 E.U./dL (0.2 - 1.0) 06/21/18 02:45 Ur Leukocyte Esterase NEGATIVE (NEGATIVE) 06/21/18 02:45 Urine RBC 0-2 /hpf (0-5) H 06/21/18 02:45 Urine WBC 0-2 /hpf (0-5) 06/21/18 02:45 Ur Epithelial Cells FEW /lpf (FEW) 06/21/18 02:45 Urine Bacteria OCCASIONAL /hpf (NONE SEEN) 06/21/18 02:45 Urine Mucus MODERATE /lpf (FEW) 06/21/18 02:45 Salicylates < 25.0 mg/L (30.0-100.0) L 06/21/18 00:10 Urine Opiates Screen NEGATIVE (NEGATIVE) 06/21/18 02:45 Urine Methadone Screen NEGATIVE (NEGATIVE) 06/21/18 02:45 Acetaminophen < 10.0 ug/mL (10.0-30.0) L 06/21/18 00:10 Ur Barbiturates Screen NEGATIVE (NEGATIVE) 06/21/18 02:45 Ur Tricyclics Screen POSITIVE (NEGATIVE) H 06/21/18 02:45 Ur Phencyclidine Scrn NEGATIVE (NEGATIVE) 06/21/18 02:45 Amphetamines Screen NEGATIVE (NEGATIVE) 06/21/18 02:45 U Methamphetamines Scrn NEGATIVE (NEGATIVE) 06/21/18 02:45 U Benzodiazepines Scrn POSITIVE (NEGATIVE) H 06/21/18 02:45 U Cocaine Metab Screen NEGATIVE (NEGATIVE) 06/21/18 02:45 U Cannabinoids Screen NEGATIVE (NEGATIVE) 06/21/18 02:45 Ethyl Alcohol < 10 mg/dL (0-10) 06/21/18 00:10 RPR NONREACTIVE (NONREACTIVE) 06/21/18 00:10 - Physical Exam Vitals and I&O: Vital Signs Temp 98 F 06/23/18 14:00 Pulse 81 06/23/18 14:00 Resp 18 06/23/18 14:00 BP 141/78 06/23/18 14:00 Pulse Ox 99 06/23/18 08:35 Intake & Output 06/22/18 06/23/18 06/23/18 18:59 06:59 18:59 Intake Total 750 150 Output Total 1 Balance 749 150 Weight (lbs) 92.079 kg 92.079 kg Intake: Oral 750 150 Output: Stool 1 Other: # Voids 4 2 # Bowel Movements 1 Weight Source Bedscale Bedscale Active Medications: Current Medications Acetaminophen (Tylenol) 650 mg GT Q6HR PRN PRN Reason: Mild Pain or Fever >101 Stop: 08/20/18 08:20 Last Admin: 06/21/18 21:21 Dose: 650 mg Acetaminophen (Tylenol Extra Strength) 1,000 mg GT Q8H PRN PRN Reason: Pain (Moderate) Stop: 08/20/18 08:20 Last Admin: 06/23/18 01:14 Dose: 1,000 mg Albuterol Sulfate (Albuterol 2.5mg/3ml Neb Ud) 2.5 mg HHN BID PRN PRN Reason: Shortness of Breath Last Admin: 06/23/18 08:38 Dose: 2.5 mg Ascorbic Acid (Vitamin C) 500 mg GT DAILY [facility] Stop: 08/20/18 10:59 Last Admin: 06/23/18 08:57 Dose: 500 mg Aspirin (Aspirin Chewable) 81 mg GT DAILY [facility] Stop: 08/20/18 08:59 Last Admin: 06/23/18 08:58 Dose: 81 mg Bisacodyl (Dulcolax 10 Mg Supp) 10 mg RC DAILY PRN PRN Reason: Constipation Stop: 08/20/18 08:20 Docusate Sodium (Colace) 100 mg GT DAILY [facility] Stop: 08/20/18 10:59 Last Admin: 06/23/18 08:57 Dose: 100 mg Ferrous Sulfate (Iron) 450 mg GT DAILY [facility] Stop: 08/20/18 10:59 Last Admin: 06/23/18 08:57 Dose: 450 mg Heparin Sodium (Porcine) (Heparin) 5,000 units SUBQ Q12H [facility] Stop: 08/20/18 20:59 Last Admin: 06/23/18 09:04 Dose: 5,000 units Hydroxyzine HCl (Atarax) 10 mg GT TID PRN; Protocol PRN Reason: PRURITUS Stop: 08/20/18 08:20 Dextrose/Sodium Chloride (D5-0.45ns) 1,000 mls @ 50 mls/hr IV .Q20H ON LICENSE OF [facility] Stop: 08/20/18 08:12 Last Admin: 06/21/18 18:44 Dose: 50 mls/hr Ceftriaxone Sodium 1 gm/ (Sodium Chloride) 50 mls @ 100 mls/hr IV Q24HR ON LICENSE OF [facility] Stop: 08/20/18 21:59 Last Admin: 06/22/18 21:58 Dose: 100 mls/hr Insulin Aspart (Novolog Insulin Sliding Scale) 0 units SUBQ ACHS [facility]; Protocol Stop: 08/20/18 11:29 Last Admin: 06/23/18 11:20 Dose: Not Given Lactobacillus Rhamnosus (Culturelle 15b) 1 each GT DAILY ON LICENSE OF [facility] Stop: 08/20/18 10:59 Last Admin: 06/23/18 09:03 Dose: 1 each Lactulose (Cephulac) 30 gm PO Q6HR [facility] Stop: 08/20/18 08:59 Last Admin: 06/23/18 12:44 Dose: 30 gm Lorazepam (Ativan) 0.5 mg GT Q6H PRN; Protocol PRN Reason: Anxiety Stop: 08/20/18 08:20 Lorazepam (Ativan) 2 mg IVP Q6HR PRN; Protocol PRN Reason: Agitation Stop: 08/20/18 08:10 Last Admin: 06/22/18 23:23 Dose: 2 mg Lorazepam (Ativan) 1 mg PO TID [facility]; Protocol Stop: 08/22/18 08:59 Last Admin: 06/23/18 15:21 Dose: 1 mg Magnesium Hydroxide (Milk Of Magnesia) 30 ml GT HS PRN PRN Reason: Constipation Stop: 08/20/18 08:20 Midodrine (Proamatine) 5 mg GT TID [facility] Stop: 08/20/18 08:59 Last Admin: 06/23/18 15:56 Dose: Not Given Miscellaneous (Vte Chemical Prophylaxis Screen/ Admission) 1 ea MC PRN PRN PRN Reason: PROTOCOL Stop: 08/20/18 12:59 Miscellaneous (Probiotic Screen) 1 ea MC PRN PRN PRN Reason: PROTOCOL Stop: 08/22/18 14:29 Pantoprazole Sodium (Protonix) 40 mg GT QDAC [facility] Stop: 08/20/18 11:29 Last Admin: 06/23/18 06:42 Dose: 40 mg Pioglitazone HCl (Actos) 15 mg GT DAILY [facility] Stop: 08/20/18 08:59 Last Admin: 06/23/18 08:58 Dose: 15 mg Potassium Chloride (Klor-Con) 20 meq PO DAILY [facility] Stop: 08/20/18 08:59 Last Admin: 06/23/18 09:03 Dose: 20 meq Quetiapine Fumarate (Seroquel Xr) 200 mg PO BID [facility]; Protocol Stop: 08/22/18 08:59 Last Admin: 06/23/18 08:58 Dose: 200 mg Sodium Phosphate (Fleet Enema) 135 ml RC Q48H PRN PRN Reason: Constipation Stop: 08/20/18 08:20 Zolpidem Tartrate (Ambien) 10 mg GT HS [facility] Stop: 08/21/18 20:59 Last Admin: 06/22/18 21:58 Dose: 10 mg General: Alert, No acute distress Cardiovascular: Regular rate, Normal S1, Normal S2 Lungs: Clear to auscultation, Normal air movement Abdomen: Bowel sounds (normal) - Procedures Procedures: Procedures Procedure Code Date ASSISTANCE WITH RESPIRATORY VENTILATION, <24 HRS, CPAP [id number] 06/01/18 Assessment/Plan - Problem List Patient Problems: All Active Problems Altered level of consciousness (Acute) R40.4 Diabetes (Acute) E11.9 Encephalopathy (Acute) G93.40 Iron deficiency (Acute) E61.1 Osteoarthritis (Acute) M19.90 UTI (urinary tract infection) (Acute) - Assessment Assessment: Dysphagia - Plan Plan: Dysphagia Improved EGD and PEG removal tomorrow
[2018-06-23] MEDS: cefTRIAXone 1 GM in Sodium Chloride 0.9% 50 ML IV SCH (22:10)
[2018-06-24] MEDS: Lactulose 10 Gm/15 mL 30mL UDC PO SCH ×4 (00:25→17:51)
[2018-06-24 06:42] LABS: % BASOPHILS 3.5 % (0.0-2.0); % EOSINOPHILS 1.9 % (0.0-5.0); % LYMPHOCYTES 11.7 % (20.0-50.0); % MONOCYTES 3.8 % (2.0-10.0); % NEUTROPHILS 79.1 % (40.0-80.0); BASOPHILE ABSOLUTE 0.6 Th/cumm (0-0.2); EOSINOPHILE ABSOLUTE 0.3 Th/cmm (0.1-0.4); HEMATOCRIT 39.6 % (41.0-60); LYMPHOCYTE ABSOLUTE 2.1 Th/cmm (1.5-3.0); MEAN CELL VOLUME 87.2 fl (80-99); MEAN CORPUSCULAR HEMOGLOBIN 28.6 pg (26.0-30.0); MEAN CORPUSCULAR HGB CONC 32.8 pg (28.0-36.0); MONOCYTE ABSOLUTE 0.7 Th/cmm (0.3-1.0); NEUTROPHILE ABSOLUTE 14.5 Th/cmm (1.8-8.0); PLATELET COUNT 268 Th/cmm (150-400); RED BLOOD COUNT 4.55 Mil/cmm (4.30-5.70); RED CELL DISTRIBUTION WIDTH 14.7 % (11.5-20.0)
[2018-06-24] MEDS: INSULIN ASPART SLIDING SCALE 100 UNITS/ML UNIT SUBQ SCH ×4 (06:55→22:00)
[2018-06-24 06:58] LABS: INR 0.95 (0.5-1.4); PROTHROMBIN TIME (TEST) 9.9 SECONDS (9.5-11.5)
[2018-06-24 07:03] LABS: ANION GAP 11.3 (7.0-16.0); BUN - UREA NITROGEN 7 mg/dL (7-25); CALCIUM SERUM 8.9 mg/dL (8.6-10.3); CARBON DIOXIDE 24.4 mEq/L (21.0-31.0); CHLORIDE 105 mEq/L (98-107); CREATININE - SERUM 0.8 mg/dL (0.7-1.3); GFR AFRICAN-AMERICAN > 60.0 ml/min (>90); GFR NON AFRICAN-AMERICAN > 60.0 ml/min; GLUCOSE 112 mg/dL (70-105); POTASSIUM SERUM 3.7 mEq/L (3.5-5.1); SODIUM SERUM 137 mEq/L (136-145)
[2018-06-24 07:07] LABS: WHITE BLOOD COUNT 18.2 Th/cmm (4.8-10.8)
[2018-06-24] MEDS: Pantoprazole 40 mg/Packet GT SCH (07:14)
[2018-06-24] MEDS ORDERED: Lidocaine 2% Gel 5 mL TP ONE (09:35)
[2018-06-24] MEDS ORDERED: Propofol 10 mg/mL 20mL Vial **SURGERY USE ONLY IV ONE (09:35)
[2018-06-24] MEDS: Ferrous Sulfate 300 MG/5 ML UDC GT SCH (10:27)
[2018-06-24] MEDS: Docusate Sodium 100 mg/10 mL UD GT SCH (10:27)
[2018-06-24] MEDS: Aspirin 81mg Chewable Tab GT SCH (10:27)
[2018-06-24] MEDS: Potassium Chloride 20 mEq ER Tab PO SCH (10:28)
[2018-06-24] MEDS: Lactobacillus Rhamnosus GG 15 Billion CFU CAP.SPRINK GT SCH (10:28)
--- NOTE | 2018-06-24 11:40 | General Progress Note ---
Subjective - Review of Systems Service Date: 06/24/18 Events since last encounter: no distress doing well Objective - Results Result Diagrams: 06/24/18 14:15 06/24/18 06:10 Recent Labs: Laboratory Last Values WBC 18.2 Th/cmm (4.8-10.8) H 06/24/18 06:10 RBC 4.55 Mil/cmm (4.30-5.70) 06/24/18 06:10 Hgb 13.0 gm/dL (12-16) 06/24/18 06:10 Hct 39.6 % (41.0-60) L 06/24/18 06:10 MCV 87.2 fl (80-99) 06/24/18 06:10 MCH 28.6 pg (26.0-30.0) 06/24/18 06:10 MCHC Differential 32.8 pg (28.0-36.0) 06/24/18 06:10 RDW 14.7 % (11.5-20.0) 06/24/18 06:10 Plt Count 268 Th/cmm (150-400) 06/24/18 06:10 MPV 8.0 fl 06/24/18 06:10 Neutrophils % 79.1 % (40.0-80.0) 06/24/18 06:10 Lymphocytes % 11.7 % (20.0-50.0) L 06/24/18 06:10 Monocytes % 3.8 % (2.0-10.0) 06/24/18 06:10 Eosinophils % 1.9 % (0.0-5.0) 06/24/18 06:10 Basophils % 3.5 % (0.0-2.0) H 06/24/18 06:10 PT 9.9 SECONDS (9.5-11.5) 06/24/18 06:10 INR 0.95 (0.5-1.4) 06/24/18 06:10 PTT (Actin FS) 23.3 SECONDS (26.0-38.0) L 06/24/18 06:10 Sodium 137 mEq/L (136-145) 06/24/18 06:10 Potassium 3.7 mEq/L (3.5-5.1) 06/24/18 06:10 Chloride 105 mEq/L (98-107) 06/24/18 06:10 Carbon Dioxide 24.4 mEq/L (21.0-31.0) 06/24/18 06:10 Anion Gap 11.3 (7.0-16.0) 06/24/18 06:10 BUN 7 mg/dL (7-25) 06/24/18 06:10 Creatinine 0.8 mg/dL (0.7-1.3) 06/24/18 06:10 Est GFR ( Amer) > 60.0 ml/min (>90) 06/24/18 06:10 Est GFR (Non-Af Amer) > 60.0 ml/min 06/24/18 06:10 BUN/Creatinine Ratio 8.8 06/24/18 06:10 Glucose 112 mg/dL (70-105) H 06/24/18 06:10 POC Glucose 107 MG/DL (70 - 105) H 06/24/18 06:11 Whole Bld Lactic Acid 0.89 mmol/L (0.60-1.99) 06/21/18 00:10 Calcium 8.9 mg/dL (8.6-10.3) 06/24/18 06:10 Total Bilirubin 0.2 mg/dL (0.3-1.0) L 06/23/18 06:09 AST 19 U/L (13-39) 06/23/18 06:09 ALT 13 U/L (7-52) 06/23/18 06:09 Alkaline Phosphatase 103 U/L (34-104) 06/23/18 06:09 Ammonia 53 umol/L (16-53) 06/23/18 06:09 Total Protein 6.1 gm/dL (6.0-8.3) 06/23/18 06:09 Albumin 3.4 gm/dL (4.2-5.5) L 06/23/18 06:09 Globulin 2.7 gm/dL 06/23/18 06:09 Albumin/Globulin Ratio 1.3 (1.0-1.8) 06/23/18 06:09 Triglycerides 83 mg/dL (<150) 06/21/18 00:10 Cholesterol 133 mg/dL (<200) 06/21/18 00:10 LDL Cholesterol Direct 78 mg/dL (75-193) 06/21/18 00:10 HDL Cholesterol 33 mg/dL (23-92) 06/21/18 00:10 TSH 0.51 uIU/ml (0.34-5.60) 06/21/18 00:10 Urine Source CLEAN C 06/21/18 02:45 Urine Color ORANGE 06/21/18 02:45 Urine Clarity HAZY (CLEAR) 06/21/18 02:45 Urine pH 6.0 (4.6 - 8.0) 06/21/18 02:45 Ur Specific [place] 1.025 (1.005-1.030) 06/21/18 02:45 Urine Protein 30 mg/dL (NEGATIVE) H 06/21/18 02:45 Urine Glucose (UA) NEGATIVE mg/dL (NEGATIVE) 06/21/18 02:45 Urine Ketones 15 mg/dL (NEGATIVE) H 06/21/18 02:45 Urine Blood NEGATIVE (NEGATIVE) 06/21/18 02:45 Urine Nitrate NEGATIVE (NEGATIVE) 06/21/18 02:45 Urine Bilirubin MODERATE (NEGATIVE) H 06/21/18 02:45 Urine Ictotest NEGATIVE (NEGATIVE) 06/21/18 02:45 Urine Urobilinogen 1.0 E.U./dL (0.2 - 1.0) 06/21/18 02:45 Ur Leukocyte Esterase NEGATIVE (NEGATIVE) 06/21/18 02:45 Urine RBC 0-2 /hpf (0-5) H 06/21/18 02:45 Urine WBC 0-2 /hpf (0-5) 06/21/18 02:45 Ur Epithelial Cells FEW /lpf (FEW) 06/21/18 02:45 Urine Bacteria OCCASIONAL /hpf (NONE SEEN) 06/21/18 02:45 Urine Mucus MODERATE /lpf (FEW) 06/21/18 02:45 Salicylates < 25.0 mg/L (30.0-100.0) L 06/21/18 00:10 Urine Opiates Screen NEGATIVE (NEGATIVE) 06/21/18 02:45 Urine Methadone Screen NEGATIVE (NEGATIVE) 06/21/18 02:45 Acetaminophen < 10.0 ug/mL (10.0-30.0) L 06/21/18 00:10 Ur Barbiturates Screen NEGATIVE (NEGATIVE) 06/21/18 02:45 Ur Tricyclics Screen POSITIVE (NEGATIVE) H 06/21/18 02:45 Ur Phencyclidine Scrn NEGATIVE (NEGATIVE) 06/21/18 02:45 Amphetamines Screen NEGATIVE (NEGATIVE) 06/21/18 02:45 U Methamphetamines Scrn NEGATIVE (NEGATIVE) 06/21/18 02:45 U Benzodiazepines Scrn POSITIVE (NEGATIVE) H 06/21/18 02:45 U Cocaine Metab Screen NEGATIVE (NEGATIVE) 06/21/18 02:45 U Cannabinoids Screen NEGATIVE (NEGATIVE) 06/21/18 02:45 Ethyl Alcohol < 10 mg/dL (0-10) 06/21/18 00:10 RPR NONREACTIVE (NONREACTIVE) 06/21/18 00:10 - Physical Exam Vitals and I&O: Vital Signs Temp 96.9 F 06/24/18 08:00 Pulse 78 06/24/18 08:00 Resp 19 06/24/18 08:00 BP 149/78 06/24/18 08:00 Pulse Ox 96 06/24/18 07:52 Intake & Output 06/23/18 06/24/18 06/24/18 18:59 06:59 18:59 Intake Total 400 150 Output Total 3 Balance 400 147 Weight (lbs) 92.079 kg 92.079 kg Intake: Oral 400 150 Output: Stool 3 Other: # Voids 3 3 # Bowel Movements 0 Weight Source Bedscale Bedscale Active Medications: Current Medications Acetaminophen (Tylenol) 650 mg GT Q6HR PRN PRN Reason: Mild Pain or Fever >101 Stop: 08/20/18 08:20 Last Admin: 06/21/18 21:21 Dose: 650 mg Acetaminophen (Tylenol Extra Strength) 1,000 mg GT Q8H PRN PRN Reason: Pain (Moderate) Stop: 08/20/18 08:20 Last Admin: 06/23/18 22:12 Dose: 1,000 mg Albuterol Sulfate (Albuterol 2.5mg/3ml Neb Ud) 2.5 mg HHN BID PRN PRN Reason: Shortness of Breath Last Admin: 06/23/18 08:38 Dose: 2.5 mg Ascorbic Acid (Vitamin C) 500 mg GT DAILY [facility] Stop: 08/20/18 10:59 Last Admin: 06/24/18 10:27 Dose: Not Given Aspirin (Aspirin Chewable) 81 mg GT DAILY [facility] Stop: 08/20/18 08:59 Last Admin: 06/24/18 10:27 Dose: Not Given Bisacodyl (Dulcolax 10 Mg Supp) 10 mg RC DAILY PRN PRN Reason: Constipation Stop: 08/20/18 08:20 Divalproex Sodium (Depakote Dr) 250 mg PO BID [facility]; Protocol Stop: 08/23/18 16:59 Docusate Sodium (Colace) 100 mg GT DAILY [facility] Stop: 08/20/18 10:59 Last Admin: 06/24/18 10:27 Dose: Not Given Ferrous Sulfate (Iron) 450 mg GT DAILY [facility] Stop: 08/20/18 10:59 Last Admin: 06/24/18 10:27 Dose: Not Given Heparin Sodium (Porcine) (Heparin) 5,000 units SUBQ Q12H [facility] Stop: 08/20/18 20:59 Last Admin: 06/24/18 10:28 Dose: Not Given Hydroxyzine HCl (Atarax) 10 mg GT TID PRN; Protocol PRN Reason: PRURITUS Stop: 08/20/18 08:20 Last Admin: 06/23/18 22:12 Dose: 10 mg Ceftriaxone Sodium 1 gm/ (Sodium Chloride) 50 mls @ 100 mls/hr IV Q24HR [facility] Stop: 08/20/18 21:59 Last Admin: 06/23/18 22:10 Dose: 100 mls/hr Insulin Aspart (Novolog Insulin Sliding Scale) 0 units SUBQ ACHS [facility]; Protocol Stop: 08/20/18 11:29 Last Admin: 06/24/18 06:55 Dose: Not Given Lactobacillus Rhamnosus (Culturelle 15b) 1 each GT DAILY [facility] Stop: 08/20/18 10:59 Last Admin: 06/24/18 10:28 Dose: Not Given Lactulose (Cephulac) 30 gm PO Q6HR [facility] Stop: 08/20/18 08:59 Last Admin: 06/24/18 05:22 Dose: Not Given Lorazepam (Ativan) 0.5 mg GT Q6H PRN; Protocol PRN Reason: Anxiety Stop: 08/20/18 08:20 Lorazepam (Ativan) 2 mg IVP Q6HR PRN; Protocol PRN Reason: Agitation Stop: 08/20/18 08:10 Last Admin: 06/24/18 04:29 Dose: 2 mg Lorazepam (Ativan) 1 mg PO TID [facility]; Protocol Stop: 08/22/18 08:59 Last Admin: 06/24/18 10:28 Dose: Not Given Magnesium Hydroxide (Milk Of Magnesia) 30 ml GT HS PRN PRN Reason: Constipation Stop: 08/20/18 08:20 Midodrine (Proamatine) 5 mg GT TID [facility] Stop: 08/20/18 08:59 Last Admin: 06/24/18 10:28 Dose: Not Given Miscellaneous (Vte Chemical Prophylaxis Screen/ Admission) 1 ea MC PRN PRN PRN Reason: PROTOCOL Stop: 08/20/18 12:59 Miscellaneous (Probiotic Screen) 1 ea MC PRN PRN PRN Reason: PROTOCOL Stop: 08/22/18 14:29 Pantoprazole Sodium (Protonix) 40 mg GT QDAC [facility] Stop: 08/20/18 11:29 Last Admin: 06/24/18 07:14 Dose: Not Given Pioglitazone HCl (Actos) 15 mg GT DAILY [facility] Stop: 08/20/18 08:59 Last Admin: 06/24/18 10:28 Dose: Not Given Potassium Chloride (Klor-Con) 20 meq PO DAILY [facility] Stop: 08/20/18 08:59 Last Admin: 06/24/18 10:28 Dose: Not Given Quetiapine Fumarate (Seroquel Xr) 200 mg PO BID [facility]; Protocol Stop: 08/22/18 08:59 Last Admin: 06/24/18 10:29 Dose: Not Given Sodium Phosphate (Fleet Enema) 135 ml RC Q48H PRN PRN Reason: Constipation Stop: 08/20/18 08:20 Zolpidem Tartrate (Ambien) 10 mg GT HS [facility] Stop: 08/21/18 20:59 Last Admin: 06/23/18 22:11 Dose: 10 mg General: Alert, No acute distress Cardiovascular: Regular rate, Normal S1, Normal S2 Lungs: Clear to auscultation, Normal air movement Abdomen: Bowel sounds (normal) Other physical findings: G TUBE REMOVED - Procedures Procedures: Procedures Procedure Code Date ASSISTANCE WITH RESPIRATORY VENTILATION, <24 HRS, CPAP [id number] 06/01/18 Assessment/Plan - Problem List Patient Problems: All Active Problems Altered level of consciousness (Acute) R40.4 Diabetes (Acute) E11.9 Encephalopathy (Acute) G93.40 Iron deficiency (Acute) E61.1 Leukocytosis (Acute) D72.829 Osteoarthritis (Acute) M19.90 UTI (urinary tract infection) (Acute) - Plan Plan: as per psych will monitor HOLD DISCHARGE
--- NOTE | 2018-06-24 12:49 | Consultation ---
Consult Note - Consult Note Service Date: 06/24/18 Referring Physician: Cinthia Sanders Consult Note: PHYSICIAN Consultation Note: Date of Admission: 06/21/18 Purpose of Consultation: Leukocytosis. Chief Complaint: Patient JORDAN PABON was admitted to location Medical/ Surgical Unit I with ALOC,INCREASED AMMONIA,LEUKOCYTOSIS. History of Present Illness:58-year-old male with a past medical history of psychosis, dementia, MRSA infection to the lower extremities, aggressive behavior, seizure disorder, brought in from [facility] for altered mental status of one day. On initial evaluation, his temperature was 98.3F and WBC count was 16,000. Rocephin IV was started empirically. It improved next day. It was doing well. G-tube was removed today. However, his WBC count went up to 18,000 today. ID consult was called for further evaluation. Patient is a poor historian and unable to give any appropriate history. Past Medical History: psychosis, dementia, MRSA infection to the lower extremities, aggressive behavior, seizure disorder, Diagnoses IRON DEFICIENCY ANEMIA, UNSPECIFIED (06/21/18) ELEVATED WHITE BLOOD CELL COUNT, UNSPECIFIED (06/21/18) TYPE 2 DIABETES MELLITUS WITHOUT COMPLICATIONS (06/21/18) PARANOID SCHIZOPHRENIA (06/21/18) ENCEPHALOPATHY, UNSPECIFIED (06/21/18) ESSENTIAL (PRIMARY) HYPERTENSION (06/21/18) CHRONIC OBSTRUCTIVE PULMONARY DISEASE, UNSPECIFIED (06/21/18) UNSPECIFIED OSTEOARTHRITIS, UNSPECIFIED SITE (06/21/18) END STAGE RENAL DISEASE (06/21/18) URINARY TRACT INFECTION, SITE NOT SPECIFIED (06/21/18) ALTERED MENTAL STATUS, UNSPECIFIED (06/21/18) WEAKNESS (06/21/18) UNSPECIFIED CONVULSIONS (06/21/18) Allergies Allergy/AdvReac Type Severity Reaction Status Date / Time No Known Allergies Allergy Verified 04/15/18 18:28 Vital Signs Temp 96.9 F 06/24/18 08:00 Pulse 78 06/24/18 08:00 Resp 19 06/24/18 08:00 BP 149/78 06/24/18 08:00 Pulse Ox 96 06/24/18 07:52 Intake & Output 06/23/18 06/24/18 06/24/18 18:59 06:59 18:59 Intake Total 400 150 Output Total 3 Balance 400 147 Weight (lbs) 92.079 kg 92.079 kg Intake: Oral 400 150 Output: Stool 3 Other: # Voids 3 3 # Bowel Movements 0 [facility] Results - last 24 hr 06/23/18 06/23/18 06/24/18 16:45 21:20 06:10 WBC 18.2 H RBC 4.55 Hgb 13.0 Hct 39.6 L MCV 87.2 MCH 28.6 MCHC Differential 32.8 RDW 14.7 Plt Count 268 MPV 8.0 Neutrophils % 79.1 Lymphocytes % 11.7 L Monocytes % 3.8 Eosinophils % 1.9 Basophils % 3.5 H PT INR PTT (Actin FS) Sodium Potassium Chloride Carbon Dioxide Anion Gap BUN Creatinine Est GFR ( Amer) Est GFR (Non-Af Amer) BUN/Creatinine Ratio Glucose POC Glucose 107 H 135 H Calcium 06/24/18 06/24/18 06/24/18 06:10 06:10 06:11 WBC RBC Hgb Hct MCV MCH MCHC Differential RDW Plt Count MPV Neutrophils % Lymphocytes % Monocytes % Eosinophils % Basophils % PT 9.9 INR 0.95 PTT (Actin FS) 23.3 L Sodium 137 Potassium 3.7 Chloride 105 Carbon Dioxide 24.4 Anion Gap 11.3 BUN 7 Creatinine 0.8 Est GFR ( Amer) > 60.0 Est GFR (Non-Af Amer) > 60.0 BUN/Creatinine Ratio 8.8 Glucose 112 H POC Glucose 107 H Calcium 8.9 06/24/18 12:08 WBC RBC Hgb Hct MCV MCH MCHC Differential RDW Plt Count MPV Neutrophils % Lymphocytes % Monocytes % Eosinophils % Basophils % PT INR PTT (Actin FS) Sodium Potassium Chloride Carbon Dioxide Anion Gap BUN Creatinine Est GFR ( Amer) Est GFR (Non-Af Amer) BUN/Creatinine Ratio Glucose POC Glucose 98 Calcium Home Medication Medication Instructions Recorded Type Acetaminophen [Tylenol Extra 1,000 mg GT Q6H PRN 06/20/18 History Strength] Acetaminophen [Tylenol Extra 1,000 mg GT Q8H PRN 06/20/18 History Strength] Acetaminophen [Tylenol] 650 mg GT Q6HR PRN 06/20/18 History Albuterol Sulfate 2.5 mg IH BID PRN 06/20/18 History Ascorbic Acid [Vitamin C] 500 mg GT DAILY 06/20/18 History Aspirin [Aspirin Chewable] 81 mg GT DAILY 06/20/18 History Bisacodyl [Dulcolax 10 Mg Supp] 10 mg RC DAILY PRN 06/20/18 History Docusate Sodium 100 mg GT DAILY 06/20/18 History Ferrous Sulfate 7.5 ml GT DAILY 06/20/18 History Fleet Enema 135 ml RC Q48H PRN 06/20/18 History Insulin Aspart Sliding Scale See Protocol SUBQ Q6H 06/20/18 History [NovoLOG INSULIN SLIDING SCALE] Lactobacillus Rhamnosus GG 1 each GT DAILY 06/20/18 History [Culturelle] Lorazepam [Ativan] 0.5 mg GT Q6H PRN 06/20/18 History Magnesium Hydroxide [Milk of 30 ml GT HS PRN 06/20/18 History Magnesia] Midodrine HCl 5 mg GT TID 06/20/18 History Mupirocin Calcium [Bactroban Nasal] 2 % NS Q72H 06/20/18 History Pantoprazole Sodium [Protonix] 40 mg GT QDAC 06/20/18 History Pioglitazone HCl [Actos] 15 mg GT DAILY 06/20/18 History Potassium Chloride ER [Klor-Con] 20 meq GT DAILY 06/20/18 History QUEtiapine Fumarate ER [Seroquel 75 mg GT DAILY 06/20/18 History Xr] Zolpidem Tartrate 5 mg GT HS 06/20/18 History hydrOXYzine [Atarax*] 10 mg GT TID PRN 06/20/18 History Current Medications Generic Name Dose Route Start Last Admin Trade Name Freq PRN Reason Stop Dose Admin Acetaminophen 650 mg 06/21/18 08:21 06/21/18 21:21 Tylenol GT 08/20/18 08:20 650 mg Q6HR PRN Administration Mild Pain or Fever >101 Acetaminophen 1,000 mg 06/21/18 08:21 06/23/18 22:12 Tylenol Extra Strength GT 08/20/18 08:20 1,000 mg Q8H PRN Administration Pain (Moderate) Albuterol Sulfate 2.5 mg 06/21/18 08:21 06/23/18 08:38 Albuterol 2.5mg/3ml Neb Ud HHN 2.5 mg BID PRN Administration Shortness of Breath Ascorbic Acid 500 mg 06/21/18 11:00 06/24/18 10:27 Vitamin C GT 08/20/18 10:59 Not Given DAILY [facility] Aspirin 81 mg 06/21/18 09:00 06/24/18 10:27 Aspirin Chewable GT 08/20/18 08:59 Not Given DAILY [facility] Bisacodyl 10 mg 06/21/18 08:21 Dulcolax 10 Mg Supp RC 08/20/18 08:20 DAILY PRN Constipation Divalproex Sodium 250 mg 06/24/18 17:[address] PO 08/23/18 16:59 BID WINIFRED Protocol Docusate Sodium 100 mg 06/21/18 11:00 06/24/18 10:27 Colace GT 08/20/18 10:59 Not Given DAILY [facility] Ferrous Sulfate 450 mg 06/21/18 11:00 06/24/18 10:27 Iron GT 08/20/18 10:59 Not Given DAILY [facility] Heparin Sodium (Porcine) 5,000 units 06/21/18 21:00 06/24/18 10:28 Heparin SUBQ 08/20/18 20:59 Not Given Q12H [facility] Hydroxyzine HCl 10 mg 06/21/18 08:21 06/23/18 22:12 Atarax GT 08/20/18 08:20 10 mg TID PRN Administration PRURITUS Protocol Ceftriaxone Sodium 1 gm/ 50 mls @ 100 mls/hr 06/21/18 22:00 06/23/18 22:10 Sodium Chloride IV 08/20/18 21:59 100 mls/hr Q24HR WINIFRED Administration Insulin Aspart 0 units 06/21/18 11:30 06/24/18 06:55 Novolog Insulin Sliding Scale SUBQ 08/20/18 11:29 Not Given ACHS [facility] Protocol Lactobacillus Rhamnosus 1 each 06/21/18 11:00 06/24/18 10:28 Culturelle 15b GT 08/20/18 10:59 Not Given DAILY [facility] Lactulose 30 gm 06/21/18 09:00 06/24/18 05:22 Cephulac PO 08/20/18 08:59 Not Given Q6HR WINIFRED Lorazepam 0.5 mg 06/21/18 08:21 Ativan GT 08/20/18 08:20 Q6H PRN Anxiety Protocol Lorazepam 2 mg 06/22/18 07:28 06/24/18 04:29 Ativan IVP 08/20/18 08:10 2 mg Q6HR PRN Administration Agitation Protocol Lorazepam 1 mg 06/23/18 09:00 06/24/18 10:28 Ativan PO 08/22/18 08:59 Not Given TID WINIFRED Protocol Magnesium Hydroxide 30 ml 06/21/18 08:21 Milk Of Magnesia GT 08/20/18 08:20 HS PRN Constipation Midodrine 5 mg 06/21/18 09:00 06/24/18 10:28 Proamatine GT 08/20/18 08:59 Not Given TID WINIFRED Miscellaneous 1 ea 06/21/18 13:00 Vte Chemical Prophylaxis Screen/ Admission 08/20/18 12:59 PRN PRN PROTOCOL Miscellaneous 1 ea 06/23/18 14:30 Probiotic Screen 08/22/18 14:29 PRN PRN PROTOCOL Pantoprazole Sodium 40 mg 06/21/18 11:30 06/24/18 07:14 Protonix GT 08/20/18 11:29 Not Given QDAC WINIFRED Pioglitazone HCl 15 mg 06/21/18 09:00 06/24/18 10:28 Actos GT 08/20/18 08:59 Not Given DAILY WINIFRED Potassium Chloride 20 meq 06/21/18 09:00 06/24/18 10:28 Klor-Con PO 08/20/18 08:59 Not Given DAILY WINIFRED Quetiapine Fumarate 200 mg 06/23/18 09:00 06/24/18 10:29 Seroquel Xr PO 08/22/18 08:59 Not Given BID WINIFRED Protocol Sodium Phosphate 135 ml 06/21/18 08:21 Fleet Enema RC 08/20/18 08:20 Q48H PRN Constipation Zolpidem Tartrate 10 mg 06/22/18 21:00 06/23/18 22:11 Ambien GT 08/21/18 20:59 10 mg HS WINIFRED Administration Review of Systems: A 12 point ROS was reviewed with the pertinent positive and negatives noted in the HPI. Social History Smoking Status Unknown if ever smoked Drug Use No: unknown Alcohol Use No: unknown Family Medical History Family Medical History Start: 06/21/18 02: 21 Freq: ONCE Status: Active Protocol: Document 06/21/18 02:21 [email or web address] (Rec: 06/21/18 03:47 [email or web address] [id number] ) Family Medical History Mother History Unknown Yes Physical Exam: General: Comfortable, not in acute distress. HEENT: Head: Normocytic, atraumatic. Oral daily: Moist, pink tongue. Eyes: No pallor and icterus. Neck: Supple, no JVD. No use of accessory neck muscles. Cardio: S1 and S2 within normal limits regular rhythm no murmur no gallop. Respiratory: Vesicular breath sound no crackles no wheezing. Abdominal: Soft, nontender nondistended bowel sounds present. Genital/Urinary: Deferred. Extremities: No cyanosis, no clubbing, no edema. Alert, awake, Neurological: Alert, awake. Assessment: 1. Leukocytosis. Likely reactive versus aspiration. Cannot rule out sepsis at this time. 2. Psychosis. 3. Dementia. 4. Seizure disorder. Plan: Will recheck the CBC. If elevated than the due to the sepsis workup. Check chest x-ray. Discontinue Rocephin and start Levaquin and Flagyl. Check blood cultures. Check UA urine culture. Thank you, Dr. Sanders, for involving me in taking care of this patient. Karla, Tejas Leigh M.D. [id number]
--- NOTE | 2018-06-24 13:00 | Operative Report ---
DATE OF SURGERY: 06/24/2018 PROCEDURE PERFORMED: Esophagogastroduodenoscopy with removal of a feeding tube. INDICATION FOR PROCEDURE: The patient with dysphagia, but has improved, we tried to move the G-tube by the traction method, but it would not come out. Apparently, the material is hard, so it cannot be squeezed through the abdominal wall and the stomach. CONSENT: Informed consent was obtained from the patient's family after planning benefits and risks. ANESTHESIA USED: Propofol by Dr. Barr. PREOPERATIVE DIAGNOSIS: Dysphagia. POSTOPERATIVE DIAGNOSES: 1. Dysphagia, status post improvement. 2. Status post removal of foreign body in the form of a gastrostomy tube. 3. Gastritis. DESCRIPTION OF PROCEDURE: The patient was placed on his back. Head was tilted to the side and flexed forward. Upper Olympus endoscope was introduced into the mouth and advanced to the esophagus, which was intubated under direct visualization. Esophageal mucosa was examined on the way down to essentially normal. Scope was advanced into the stomach where the gastric mucosa was examined and the G-tube was seen there. We tried to remove it again unsuccessfully. Scope was then advanced through the pylorus to the duodenum where the bulb and second part were examined and they were both normal. Scope was then withdrawn to the stomach. There were areas of gastritis with scope with few erosions. Scope was retroflexed to examine the cardia and fundus. It did not show any other abnormality. Scope was then straightened and the G-tube was surrounded by the snare, then it was cut from outside. Then, the scope was withdrawn with the snare holding the G-tube. The patient tolerated the procedure well. There were no immediate postoperative complications. RECOMMENDATIONS: 1. Monitor the patient clinically. 2. Diet as tolerated. 3. PPI or Pepcid. 4. Further recommendations to follow. JOB# [id number] EMILIE
[2018-06-24 14:18] LABS: % BASOPHILS 0.1 % (0.0-2.0); % EOSINOPHILS 4.4 % (0.0-5.0); % MONOCYTES 5.2 % (2.0-10.0); % NEUTROPHILS 77.3 % (40.0-80.0); EOSINOPHILE ABSOLUTE 0.6 Th/cmm (0.1-0.4); HEMATOCRIT 40.3 % (41.0-60); HEMOGLOBIN 13.2 gm/dL (12-16); LYMPHOCYTE ABSOLUTE 1.8 Th/cmm (1.5-3.0); MEAN CORPUSCULAR HEMOGLOBIN 28.4 pg (26.0-30.0); MEAN CORPUSCULAR HGB CONC 32.6 pg (28.0-36.0); MEAN PLATELET VOLUME 7.4 fl; MONOCYTE ABSOLUTE 0.7 Th/cmm (0.3-1.0); NEUTROPHILE ABSOLUTE 10.7 Th/cmm (1.8-8.0); PLATELET COUNT 311 Th/cmm (150-400); RED BLOOD COUNT 4.64 Mil/cmm (4.30-5.70); RED CELL DISTRIBUTION WIDTH 15.2 % (11.5-20.0); WHITE BLOOD COUNT 13.8 Th/cmm (4.8-10.8)
[2018-06-24] MEDS: Levofloxacin 500mg/100mL 500 MG/100 ML BAG IV SCH (16:26)
[2018-06-24] MEDS: Acetaminophen 500 MG TAB GT PRN (22:52)
[2018-06-25 00:38] LABS: URINE SOURCE RANDOM
[2018-06-25 00:40] LABS: URINE BILIRUBIN NEGATIVE (NEGATIVE); URINE BLOOD NEGATIVE (NEGATIVE); URINE GLUCOSE (UA) NEGATIVE (NEGATIVE); URINE KETONE 15 mg/dL (NEGATIVE); URINE LEUKOCYTE ESTERASE NEGATIVE (NEGATIVE); URINE NITRATE NEGATIVE (NEGATIVE); URINE PROTEIN NEGATIVE (NEGATIVE); URINE UROBILINOGEN 0.2 E.U./dL (0.2 - 1.0)
[2018-06-25] MEDS: Lactulose 10 Gm/15 mL 30mL UDC PO SCH ×4 (01:19→17:54)
[2018-06-25 01:57] LABS: URINE CLARITY CLEAR (CLEAR); URINE COLOR YELLOW; URINE MICROSCOPIC INDICATED? NO
--- NOTE | 2018-06-25 05:46 | Consultation ---
DATE OF CONSULTATION: 06/24/2018 HISTORY OF PRESENT ILLNESS: A 58-year-old male admitted due to irritability, agitation, restlessness, trying to hit staff, kick staff, at times being restrained, status post procedure. The patient remains highly impulsive, unpredictable, very sedated at this time. Staff noting that he seems to have history of schizophrenia, gets agitated, tries to lash out at staff, others, putting himself in harm's way, currently therefore on a 1:1. MENTAL STATUS EXAMINATION: Sleeping, sedated, status post a procedure, per staff ongoing safety concerns. Poor impulse control. PROVISIONAL DIAGNOSIS: Schizophrenia; psychosis, unspecified; concerns for delirium. RECOMMENDATIONS AND PLAN: Continue Seroquel, Ativan p.r.n. Start low dose Depakote. The patient may need Geropsych placement. JOB# [id number]
[2018-06-25 06:56] LABS: % BASOPHILS 3.1 % (0.0-2.0); % EOSINOPHILS 5.7 % (0.0-5.0); % LYMPHOCYTES 13.3 % (20.0-50.0); % MONOCYTES 8.7 % (2.0-10.0); % NEUTROPHILS 69.2 % (40.0-80.0); BASOPHILE ABSOLUTE 0.3 Th/cumm (0-0.2); EOSINOPHILE ABSOLUTE 0.6 Th/cmm (0.1-0.4); HEMOGLOBIN 12.8 gm/dL (12-16); LYMPHOCYTE ABSOLUTE 1.4 Th/cmm (1.5-3.0); MEAN CORPUSCULAR HEMOGLOBIN 28.5 pg (26.0-30.0); MEAN CORPUSCULAR HGB CONC 32.7 pg (28.0-36.0); MEAN PLATELET VOLUME 8.3 fl; MONOCYTE ABSOLUTE 0.9 Th/cmm (0.3-1.0); NEUTROPHILE ABSOLUTE 7.7 Th/cmm (1.8-8.0); PLATELET COUNT 282 Th/cmm (150-400); RED BLOOD COUNT 4.48 Mil/cmm (4.30-5.70); RED CELL DISTRIBUTION WIDTH 14.8 % (11.5-20.0); WHITE BLOOD COUNT 10.9 Th/cmm (4.8-10.8)
[2018-06-25] MEDS: Pantoprazole 40 mg/Packet GT SCH (06:57)
[2018-06-25 07:17] LABS: ANION GAP 11.7 (7.0-16.0); BUN - UREA NITROGEN 8 mg/dL (7-25); CALCIUM SERUM 9.2 mg/dL (8.6-10.3); CARBON DIOXIDE 24.5 mEq/L (21.0-31.0); CHLORIDE 105 mEq/L (98-107); CREATININE - SERUM 0.8 mg/dL (0.7-1.3); GFR AFRICAN-AMERICAN > 60.0 ml/min (>90); GFR NON AFRICAN-AMERICAN > 60.0 ml/min; GLUCOSE 117 mg/dL (70-105); POTASSIUM SERUM 4.2 mEq/L (3.5-5.1); SODIUM SERUM 137 mEq/L (136-145)
[2018-06-25] MEDS: INSULIN ASPART SLIDING SCALE 100 UNITS/ML UNIT SUBQ SCH ×4 (07:22→21:42)
[2018-06-25] MEDS: Aspirin 81mg Chewable Tab GT SCH (10:16)
[2018-06-25] MEDS: Ferrous Sulfate 300 MG/5 ML UDC GT SCH ×2 (10:17→10:38)
[2018-06-25] MEDS: Potassium Chloride 20 mEq ER Tab PO SCH (10:17)
[2018-06-25] MEDS: Docusate Sodium 100 mg/10 mL UD GT SCH ×2 (10:18→10:37)
[2018-06-25] MEDS: Lactobacillus Rhamnosus GG 15 Billion CFU CAP.SPRINK GT SCH (10:18)
--- NOTE | 2018-06-25 10:47 | Diagnostic Imaging Report ---
Portable chest x-ray History: Cough Allowing for portable technique the heart size is normal. No focal pulmonary parenchymal processes. No hilar or mediastinal abnormalities. Impression: No acute abnormalities.
--- NOTE | 2018-06-25 12:21 | Internal Medicine Prog Note ---
Internal Medicine Subjective - Subjective Service Date: 06/25/18 Patient seen and examined:: with staff Patient is:: awake, verbal Per staff patient has:: tolerating meds Internal Medicine Objective - Results Result Diagrams: 06/25/18 06:00 06/25/18 06:00 Recent Labs: Laboratory Last Values WBC 10.9 Th/cmm (4.8-10.8) H 06/25/18 06:00 RBC 4.48 Mil/cmm (4.30-5.70) 06/25/18 06:00 Hgb 12.8 gm/dL (12-16) 06/25/18 06:00 Hct 39.0 % (41.0-60) L 06/25/18 06:00 MCV 87.0 fl (80-99) 06/25/18 06:00 MCH 28.5 pg (26.0-30.0) 06/25/18 06:00 MCHC Differential 32.7 pg (28.0-36.0) 06/25/18 06:00 RDW 14.8 % (11.5-20.0) 06/25/18 06:00 Plt Count 282 Th/cmm (150-400) 06/25/18 06:00 MPV 8.3 fl 06/25/18 06:00 Neutrophils % 69.2 % (40.0-80.0) 06/25/18 06:00 Lymphocytes % 13.3 % (20.0-50.0) L 06/25/18 06:00 Monocytes % 8.7 % (2.0-10.0) 06/25/18 06:00 Eosinophils % 5.7 % (0.0-5.0) H 06/25/18 06:00 Basophils % 3.1 % (0.0-2.0) H 06/25/18 06:00 PT 9.9 SECONDS (9.5-11.5) 06/24/18 06:10 INR 0.95 (0.5-1.4) 06/24/18 06:10 PTT (Actin FS) 23.3 SECONDS (26.0-38.0) L 06/24/18 06:10 Sodium 137 mEq/L (136-145) 06/25/18 06:00 Potassium 4.2 mEq/L (3.5-5.1) 10/09/18 06:00 Chloride 105 mEq/L (98-107) 06/25/18 06:00 Carbon Dioxide 24.5 mEq/L (21.0-31.0) 06/25/18 06:00 Anion Gap 11.7 (7.0-16.0) 06/25/18 06:00 BUN 8 mg/dL (7-25) 06/25/18 06:00 Creatinine 0.8 mg/dL (0.7-1.3) 06/25/18 06:00 Est GFR ( Amer) > 60.0 ml/min (>90) 06/25/18 06:00 Est GFR (Non-Af Amer) > 60.0 ml/min 06/25/18 06:00 BUN/Creatinine Ratio 10.0 06/25/18 06:00 Glucose 117 mg/dL (70-105) H 06/25/18 06:00 POC Glucose 110 MG/DL (70 - 105) H 06/25/18 06:47 Whole Bld Lactic Acid 0.89 mmol/L (0.60-1.99) 06/21/18 00:10 Calcium 9.2 mg/dL (8.6-10.3) 06/25/18 06:00 Total Bilirubin 0.2 mg/dL (0.3-1.0) L 06/23/18 06:09 AST 19 U/L (13-39) 06/23/18 06:09 ALT 13 U/L (7-52) 06/23/18 06:09 Alkaline Phosphatase 103 U/L (34-104) 06/23/18 06:09 Ammonia 53 umol/L (16-53) 06/23/18 06:09 Total Protein 6.1 gm/dL (6.0-8.3) 06/23/18 06:09 Albumin 3.4 gm/dL (4.2-5.5) L 06/23/18 06:09 Globulin 2.7 gm/dL 06/23/18 06:09 Albumin/Globulin Ratio 1.3 (1.0-1.8) 06/23/18 06:09 Triglycerides 83 mg/dL (<150) 06/21/18 00:10 Cholesterol 133 mg/dL (<200) 06/21/18 00:10 LDL Cholesterol Direct 78 mg/dL (75-193) 06/21/18 00:10 HDL Cholesterol 33 mg/dL (23-92) 06/21/18 00:10 TSH 0.51 uIU/ml (0.34-5.60) 06/21/18 00:10 Urine Source RANDOM 06/25/18 00:10 Urine Color YELLOW 06/25/18 00:10 Urine Clarity CLEAR (CLEAR) 06/25/18 00:10 Urine pH 6.0 (4.6 - 8.0) 06/25/18 00:10 Ur Specific [place] 1.020 (1.005-1.030) 06/25/18 00:10 Urine Protein NEGATIVE mg/dL (NEGATIVE) 06/25/18 00:10 Urine Glucose (UA) NEGATIVE mg/dL (NEGATIVE) 06/25/18 00:10 Urine Ketones 15 mg/dL (NEGATIVE) H 06/25/18 00:10 Urine Blood NEGATIVE (NEGATIVE) 06/25/18 00:10 Urine Nitrate NEGATIVE (NEGATIVE) 06/25/18 00:10 Urine Bilirubin NEGATIVE (NEGATIVE) 06/25/18 00:10 Urine Ictotest NEGATIVE (NEGATIVE) 06/21/18 02:45 Urine Urobilinogen 0.2 E.U./dL (0.2 - 1.0) 06/25/18 00:10 Ur Leukocyte Esterase NEGATIVE (NEGATIVE) 06/25/18 00:10 Urine RBC 0-2 /hpf (0-5) H 06/21/18 02:45 Urine WBC 0-2 /hpf (0-5) 06/21/18 02:45 Ur Epithelial Cells FEW /lpf (FEW) 06/21/18 02:45 Urine Bacteria OCCASIONAL /hpf (NONE SEEN) 06/21/18 02:45 Urine Mucus MODERATE /lpf (FEW) 06/21/18 02:45 Salicylates < 25.0 mg/L (30.0-100.0) L 06/21/18 00:10 Urine Opiates Screen NEGATIVE (NEGATIVE) 06/21/18 02:45 Urine Methadone Screen NEGATIVE (NEGATIVE) 06/21/18 02:45 Acetaminophen < 10.0 ug/mL (10.0-30.0) L 06/21/18 00:10 Ur Barbiturates Screen NEGATIVE (NEGATIVE) 06/21/18 02:45 Ur Tricyclics Screen POSITIVE (NEGATIVE) H 10/05/18 02:45 Ur Phencyclidine Scrn NEGATIVE (NEGATIVE) 06/21/18 02:45 Amphetamines Screen NEGATIVE (NEGATIVE) 06/21/18 02:45 U Methamphetamines Scrn NEGATIVE (NEGATIVE) 06/21/18 02:45 U Benzodiazepines Scrn POSITIVE (NEGATIVE) H 06/21/18 02:45 U Cocaine Metab Screen NEGATIVE (NEGATIVE) 06/21/18 02:45 U Cannabinoids Screen NEGATIVE (NEGATIVE) 06/21/18 02:45 Ethyl Alcohol < 10 mg/dL (0-10) 06/21/18 00:10 RPR NONREACTIVE (NONREACTIVE) 06/21/18 00:10 - Physical Exam Vitals and I&O: Vital Signs Temp 97.5 F 06/25/18 03:00 Pulse 86 06/25/18 07:30 Resp 18 06/25/18 07:30 BP 139/72 06/25/18 03:00 Pulse Ox 96 06/25/18 07:30 Intake & Output 06/24/18 06/25/18 06/25/18 18:59 06:59 18:59 Intake Total 150 200 Output Total 3 Balance 147 200 Weight (lbs) 203 lb 203 lb Intake: Oral 150 200 Output: Stool 3 Other: # Voids 3 4 # Bowel Movements 1 Weight Source Bedscale Bedscale Active Medications: Current Medications Acetaminophen (Tylenol) 650 mg GT Q6HR PRN PRN Reason: Mild Pain or Fever >101 Stop: 08/20/18 08:20 Last Admin: 06/21/18 21:21 Dose: 650 mg Acetaminophen (Tylenol Extra Strength) 1,000 mg GT Q8H PRN PRN Reason: Pain (Moderate) Stop: 08/20/18 08:20 Last Admin: 06/24/18 22:52 Dose: 1,000 mg Albuterol Sulfate (Albuterol 2.5mg/3ml Neb Ud) 2.5 mg HHN BID PRN PRN Reason: Shortness of Breath Last Admin: 06/23/18 08:38 Dose: 2.5 mg Ascorbic Acid (Vitamin C) 500 mg GT DAILY WINIFRED Stop: 08/20/18 10:59 Last Admin: 06/25/18 10:16 Dose: 500 mg Aspirin (Aspirin Chewable) 81 mg GT DAILY WINFIRED Stop: 08/20/18 08:59 Last Admin: 06/25/18 10:16 Dose: 81 mg Bisacodyl (Dulcolax 10 Mg Supp) 10 mg RC DAILY PRN PRN Reason: Constipation Stop: 08/20/18 08:20 Divalproex Sodium (Depakote Dr) 250 mg PO BID WINIFRED; Protocol Stop: 08/23/18 16:59 Docusate Sodium (Colace) 100 mg GT DAILY [facility] Stop: 08/20/18 10:59 Last Admin: 06/25/18 10:37 Dose: Not Given Ferrous Sulfate (Iron) 450 mg GT DAILY [facility] Stop: 08/20/18 10:59 Last Admin: 06/25/18 10:38 Dose: Not Given Heparin Sodium (Porcine) (Heparin) 5,000 units SUBQ Q12H [facility] Stop: 08/20/18 20:59 Last Admin: 06/25/18 10:17 Dose: 5,000 units Hydroxyzine HCl (Atarax) 10 mg GT TID PRN; Protocol PRN Reason: PRURITUS Stop: 08/20/18 08:20 Last Admin: 06/24/18 22:53 Dose: 10 mg Levofloxacin (Levaquin Pb) 500 mg in 100 mls @ 100 mls/hr IV Q24HR [facility] Stop: 08/23/18 14:59 Last Admin: 06/24/18 16:26 Dose: 100 mls/hr Insulin Aspart (Novolog Insulin Sliding Scale) 0 units SUBQ ACHS [facility]; Protocol Stop: 08/20/18 11:29 Last Admin: 06/25/18 07:22 Dose: Not Given Lactobacillus Rhamnosus (Culturelle 15b) 1 each GT DAILY [facility] Stop: 08/20/18 10:59 Last Admin: 06/25/18 10:18 Dose: 1 each Lactulose (Cephulac) 30 gm PO Q6HR [facility] Stop: 08/20/18 08:59 Last Admin: 06/25/18 06:56 Dose: 30 gm Lorazepam (Ativan) 0.5 mg GT Q6H PRN; Protocol PRN Reason: Anxiety Stop: 08/20/18 08:20 Lorazepam (Ativan) 2 mg IVP Q6HR PRN; Protocol PRN Reason: Agitation Stop: 08/20/18 08:10 Last Admin: 06/25/18 03:46 Dose: 2 mg Lorazepam (Ativan) 1 mg PO TID WINIFRED; Protocol Stop: 08/22/18 08:59 Last Admin: 06/25/18 10:25 Dose: 1 mg Magnesium Hydroxide (Milk Of Magnesia) 30 ml GT HS PRN PRN Reason: Constipation Stop: 08/20/18 08:20 Metronidazole (Flagyl) 500 mg PO BID WINIFRED Stop: 07/01/18 16:59 Last Admin: 06/25/18 10:16 Dose: 500 mg Midodrine (Proamatine) 5 mg GT TID WINIFRED Stop: 08/20/18 08:59 Last Admin: 06/25/18 10:17 Dose: 5 mg Miscellaneous (Vte Chemical Prophylaxis Screen/ Admission) 1 ea PRN PRN PRN Reason: PROTOCOL Stop: 08/20/18 12:59 Miscellaneous (Probiotic Screen) 1 ea PRN PRN PRN Reason: PROTOCOL Stop: 08/22/18 14:29 Pantoprazole Sodium (Protonix) 40 mg GT QDAC WINIFRED Stop: 08/20/18 11:29 Last Admin: 06/25/18 06:57 Dose: 40 mg Pioglitazone HCl (Actos) 15 mg GT DAILY WINIFRED Stop: 08/20/18 08:59 Last Admin: 06/25/18 10:17 Dose: 15 mg Potassium Chloride (Klor-Con) 20 meq PO DAILY WINIFRED Stop: 08/20/18 08:59 Last Admin: 06/25/18 10:17 Dose: 20 meq Quetiapine Fumarate (Seroquel Xr) 200 mg PO BID WINIFRED; Protocol Stop: 08/22/18 08:59 Last Admin: 06/25/18 10:31 Dose: 200 mg Sodium Phosphate (Fleet Enema) 135 ml RC Q48H PRN PRN Reason: Constipation Stop: 08/20/18 08:20 Zolpidem Tartrate (Ambien) 10 mg GT HS WINIFRED Stop: 08/21/18 20:59 Last Admin: 06/24/18 22:52 Dose: 10 mg General: alert HEENT: NC/AT, PERRLA Neck: Supple Lungs: CTAB Cardiovascular: RRR, Normal S1, Normal S2, without murmur Abdomen: soft, non-tender, non-distended Neurological: alert - Procedures Procedures: Procedures Procedure Code Date ASSISTANCE WITH RESPIRATORY VENTILATION, <24 HRS, CPAP [id number] 06/01/18 Internal Medicine Assmt/Plan - Assessment Assessment: aloc acute uti leukocytosis HTN DM copd esrd seizures - Plan Plan: continue ivabx seizure precautions follow up labs in am continue the rest of the orders
[2018-06-25] MEDS: Levofloxacin 500mg/100mL 500 MG/100 ML BAG IV SCH (14:48)
--- NOTE | 2018-06-25 15:51 | GI Progress Note ---
Subjective - Review of Systems Service Date: 06/25/18 Events since last encounter: No events Subjective: eating good per staff Objective - Results Result Diagrams: 06/25/18 06:00 06/25/18 06:00 Recent Labs: Laboratory Last Values WBC 10.9 Th/cmm (4.8-10.8) H 06/25/18 06:00 RBC 4.48 Mil/cmm (4.30-5.70) 06/25/18 06:00 Hgb 12.8 gm/dL (12-16) 06/25/18 06:00 Hct 39.0 % (41.0-60) L 06/25/18 06:00 MCV 87.0 fl (80-99) 06/25/18 06:00 MCH 28.5 pg (26.0-30.0) 06/25/18 06:00 MCHC Differential 32.7 pg (28.0-36.0) 06/25/18 06:00 RDW 14.8 % (11.5-20.0) 06/25/18 06:00 Plt Count 282 Th/cmm (150-400) 06/25/18 06:00 MPV 8.3 fl 06/25/18 06:00 Neutrophils % 69.2 % (40.0-80.0) 06/25/18 06:00 Lymphocytes % 13.3 % (20.0-50.0) L 06/25/18 06:00 Monocytes % 8.7 % (2.0-10.0) 06/25/18 06:00 Eosinophils % 5.7 % (0.0-5.0) H 06/25/18 06:00 Basophils % 3.1 % (0.0-2.0) H 06/25/18 06:00 PT 9.9 SECONDS (9.5-11.5) 06/24/18 06:10 INR 0.95 (0.5-1.4) 06/24/18 06:10 PTT (Actin FS) 23.3 SECONDS (26.0-38.0) L 06/24/18 06:10 Sodium 137 mEq/L (136-145) 06/25/18 06:00 Potassium 4.2 mEq/L (3.5-5.1) 06/25/18 06:00 Chloride 105 mEq/L (98-107) 06/25/18 06:00 Carbon Dioxide 24.5 mEq/L (21.0-31.0) 06/25/18 06:00 Anion Gap 11.7 (7.0-16.0) 06/25/18 06:00 BUN 8 mg/dL (7-25) 06/25/18 06:00 Creatinine 0.8 mg/dL (0.7-1.3) 06/25/18 06:00 Est GFR ( Amer) > 60.0 ml/min (>90) 06/25/18 06:00 Est GFR (Non-Af Amer) > 60.0 ml/min 06/25/18 06:00 BUN/Creatinine Ratio 10.0 06/25/18 06:00 Glucose 117 mg/dL (70-105) H 06/25/18 06:00 POC Glucose 124 MG/DL (70 - 105) H 06/25/18 12:18 Whole Bld Lactic Acid 0.89 mmol/L (0.60-1.99) 06/21/18 00:10 Calcium 9.2 mg/dL (8.6-10.3) 06/25/18 06:00 Total Bilirubin 0.2 mg/dL (0.3-1.0) L 06/23/18 06:09 AST 19 U/L (13-39) 06/23/18 06:09 ALT 13 U/L (7-52) 06/23/18 06:09 Alkaline Phosphatase 103 U/L (34-104) 06/23/18 06:09 Ammonia 53 umol/L (16-53) 06/23/18 06:09 Total Protein 6.1 gm/dL (6.0-8.3) 06/23/18 06:09 Albumin 3.4 gm/dL (4.2-5.5) L 06/23/18 06:09 Globulin 2.7 gm/dL 06/23/18 06:09 Albumin/Globulin Ratio 1.3 (1.0-1.8) 06/23/18 06:09 Triglycerides 83 mg/dL (<150) 06/21/18 00:10 Cholesterol 133 mg/dL (<200) 06/21/18 00:10 LDL Cholesterol Direct 78 mg/dL (75-193) 10/05/18 00:10 HDL Cholesterol 33 mg/dL (23-92) 06/21/18 00:10 TSH 0.51 uIU/ml (0.34-5.60) 06/21/18 00:10 Urine Source RANDOM 06/25/18 00:10 Urine Color YELLOW 06/25/18 00:10 Urine Clarity CLEAR (CLEAR) 06/25/18 00:10 Urine pH 6.0 (4.6 - 8.0) 06/25/18 00:10 Ur Specific [place] 1.020 (1.005-1.030) 06/25/18 00:10 Urine Protein NEGATIVE mg/dL (NEGATIVE) 06/25/18 00:10 Urine Glucose (UA) NEGATIVE mg/dL (NEGATIVE) 06/25/18 00:10 Urine Ketones 15 mg/dL (NEGATIVE) H 06/25/18 00:10 Urine Blood NEGATIVE (NEGATIVE) 06/25/18 00:10 Urine Nitrate NEGATIVE (NEGATIVE) 06/25/18 00:10 Urine Bilirubin NEGATIVE (NEGATIVE) 06/25/18 00:10 Urine Ictotest NEGATIVE (NEGATIVE) 06/21/18 02:45 Urine Urobilinogen 0.2 E.U./dL (0.2 - 1.0) 06/25/18 00:10 Ur Leukocyte Esterase NEGATIVE (NEGATIVE) 06/25/18 00:10 Urine RBC 0-2 /hpf (0-5) H 06/21/18 02:45 Urine WBC 0-2 /hpf (0-5) 06/21/18 02:45 Ur Epithelial Cells FEW /lpf (FEW) 06/21/18 02:45 Urine Bacteria OCCASIONAL /hpf (NONE SEEN) 06/21/18 02:45 Urine Mucus MODERATE /lpf (FEW) 06/21/18 02:45 Salicylates < 25.0 mg/L (30.0-100.0) L 06/21/18 00:10 Urine Opiates Screen NEGATIVE (NEGATIVE) 06/21/18 02:45 Urine Methadone Screen NEGATIVE (NEGATIVE) 06/21/18 02:45 Acetaminophen < 10.0 ug/mL (10.0-30.0) L 06/21/18 00:10 Ur Barbiturates Screen NEGATIVE (NEGATIVE) 06/21/18 02:45 Ur Tricyclics Screen POSITIVE (NEGATIVE) H 06/21/18 02:45 Ur Phencyclidine Scrn NEGATIVE (NEGATIVE) 06/21/18 02:45 Amphetamines Screen NEGATIVE (NEGATIVE) 06/21/18 02:45 U Methamphetamines Scrn NEGATIVE (NEGATIVE) 06/21/18 02:45 U Benzodiazepines Scrn POSITIVE (NEGATIVE) H 06/21/18 02:45 U Cocaine Metab Screen NEGATIVE (NEGATIVE) 06/21/18 02:45 U Cannabinoids Screen NEGATIVE (NEGATIVE) 06/21/18 02:45 Ethyl Alcohol < 10 mg/dL (0-10) 06/21/18 00:10 RPR NONREACTIVE (NONREACTIVE) 06/21/18 00:10 - Physical Exam Vitals and I&O: Vital Signs Temp 97.2 F 06/25/18 11:00 Pulse 99 06/25/18 11:00 Resp 20 06/25/18 11:00 BP 143/91 06/25/18 11:00 Pulse Ox 95 06/25/18 11:00 Intake & Output 06/24/18 06/25/18 06/25/18 18:59 06:59 18:59 Intake Total 250 200 Output Total 3 Balance 247 200 Weight (lbs) 92.079 kg 92.079 kg Intake: Intake, IV Amount 100 Levofloxacin 500mg/100mL 100 500 mg In 100 ml @ 100 mls/hr IV Q24HR [facility] Rx#: [id number] Oral 150 200 Output: Stool 3 Other: # Voids 3 4 # Bowel Movements 1 Stool Characteristics Soft Formed Weight Source Bedscale Bedscale Active Medications: Current Medications Acetaminophen (Tylenol) 650 mg GT Q6HR PRN PRN Reason: Mild Pain or Fever >101 Stop: 08/20/18 08:20 Last Admin: 06/21/18 21:21 Dose: 650 mg Acetaminophen (Tylenol Extra Strength) 1,000 mg GT Q8H PRN PRN Reason: Pain (Moderate) Stop: 08/20/18 08:20 Last Admin: 06/24/18 22:52 Dose: 1,000 mg Albuterol Sulfate (Albuterol 2.5mg/3ml Neb Ud) 2.5 mg HHN BID PRN PRN Reason: Shortness of Breath Last Admin: 06/23/18 08:38 Dose: 2.5 mg Ascorbic Acid (Vitamin C) 500 mg GT DAILY [facility] Stop: 08/20/18 10:59 Last Admin: 06/25/18 10:16 Dose: 500 mg Aspirin (Aspirin Chewable) 81 mg GT DAILY [facility] Stop: 08/20/18 08:59 Last Admin: 06/25/18 10:16 Dose: 81 mg Bisacodyl (Dulcolax 10 Mg Supp) 10 mg RC DAILY PRN PRN Reason: Constipation Stop: 08/20/18 08:20 Divalproex Sodium (Depakote Dr) 250 mg PO BID [facility]; Protocol Stop: 08/23/18 16:59 Docusate Sodium (Colace) 100 mg GT DAILY [facility] Stop: 08/20/18 10:59 Last Admin: 06/25/18 10:37 Dose: Not Given Ferrous Sulfate (Iron) 450 mg GT DAILY [facility] Stop: 08/20/18 10:59 Last Admin: 06/25/18 10:38 Dose: Not Given Heparin Sodium (Porcine) (Heparin) 5,000 units SUBQ Q12H [facility] Stop: 08/20/18 20:59 Last Admin: 06/25/18 10:17 Dose: 5,000 units Hydroxyzine HCl (Atarax) 10 mg GT TID PRN; Protocol PRN Reason: PRURITUS Stop: 08/20/18 08:20 Last Admin: 06/24/18 22:53 Dose: 10 mg Levofloxacin (Levaquin Pb) 500 mg in 100 mls @ 100 mls/hr IV Q24HR [facility] Stop: 08/23/18 14:59 Last Admin: 06/25/18 14:48 Dose: 100 mls/hr Insulin Aspart (Novolog Insulin Sliding Scale) 0 units SUBQ ACHS [facility]; Protocol Stop: 08/20/18 11:29 Last Admin: 06/25/18 12:32 Dose: Not Given Lactobacillus Rhamnosus (Culturelle 15b) 1 each GT DAILY [facility] Stop: 08/20/18 10:59 Last Admin: 06/25/18 10:18 Dose: 1 each Lactulose (Cephulac) 30 gm PO Q6HR [facility] Stop: 08/20/18 08:59 Last Admin: 06/25/18 13:07 Dose: Not Given Lorazepam (Ativan) 0.5 mg GT Q6H PRN; Protocol PRN Reason: Anxiety Stop: 08/20/18 08:20 Lorazepam (Ativan) 2 mg IVP Q6HR PRN; Protocol PRN Reason: Agitation Stop: 08/20/18 08:10 Last Admin: 06/25/18 03:46 Dose: 2 mg Lorazepam (Ativan) 1 mg PO TID [facility]; Protocol Stop: 08/22/18 08:59 Last Admin: 06/25/18 14:49 Dose: 1 mg Magnesium Hydroxide (Milk Of Magnesia) 30 ml GT HS PRN PRN Reason: Constipation Stop: 08/20/18 08:20 Metronidazole (Flagyl) 500 mg PO BID [facility] Stop: 07/01/18 16:59 Last Admin: 06/25/18 10:16 Dose: 500 mg Midodrine (Proamatine) 5 mg GT TID [facility] Stop: 08/20/18 08:59 Last Admin: 06/25/18 14:49 Dose: 5 mg Miscellaneous (Vte Chemical Prophylaxis Screen/ Admission) 1 ea PRN PRN PRN Reason: PROTOCOL Stop: 08/20/18 12:59 Miscellaneous (Probiotic Screen) 1 ea PRN PRN PRN Reason: PROTOCOL Stop: 08/22/18 14:29 Pantoprazole Sodium (Protonix) 40 mg GT QDAC [facility] Stop: 08/20/18 11:29 Last Admin: 06/25/18 06:57 Dose: 40 mg Pioglitazone HCl (Actos) 15 mg GT DAILY [facility] Stop: 08/20/18 08:59 Last Admin: 06/25/18 10:17 Dose: 15 mg Potassium Chloride (Klor-Con) 20 meq PO DAILY [facility] Stop: 08/20/18 08:59 Last Admin: 06/25/18 10:17 Dose: 20 meq Quetiapine Fumarate (Seroquel Xr) 200 mg PO BID [facility]; Protocol Stop: 08/22/18 08:59 Last Admin: 06/25/18 10:31 Dose: 200 mg Sodium Phosphate (Fleet Enema) 135 ml RC Q48H PRN PRN Reason: Constipation Stop: 08/20/18 08:20 Zolpidem Tartrate (Ambien) 10 mg GT HS [facility] Stop: 08/21/18 20:59 Last Admin: 06/24/18 22:52 Dose: 10 mg General: Alert, No acute distress Cardiovascular: Regular rate, Normal S1, Normal S2 Lungs: Clear to auscultation, Normal air movement Abdomen: Bowel sounds (normal), Other (Site of G tube is clean) - Procedures Procedures: Procedures Procedure Code Date ASSISTANCE WITH RESPIRATORY VENTILATION, <24 HRS, CPAP [id number] 06/01/18 Assessment/Plan - Problem List Patient Problems: All Active Problems Altered level of consciousness (Acute) R40.4 Diabetes (Acute) E11.9 Encephalopathy (Acute) G93.40 Iron deficiency (Acute) E61.1 Leukocytosis (Acute) D72.829 Osteoarthritis (Acute) M19.90 UTI (urinary tract infection) (Acute) - Assessment Assessment: Dysphagia - Plan Plan: Dysphagia Improved G tube was removed Will sign off Please advise if we can be of further assistance
[2018-06-25] MEDS: Acetaminophen 500 MG TAB GT PRN (21:40)
[2018-06-25] MEDS: Albuterol Nebulizer 2.5mg/3mL HHN PRN (23:19)
[2018-06-26] MEDS: Lactulose 10 Gm/15 mL 30mL UDC PO SCH ×4 (00:19→18:23)
[2018-06-26] MEDS: Pantoprazole 40 mg/Packet GT SCH (06:29)
[2018-06-26] MEDS: INSULIN ASPART SLIDING SCALE 100 UNITS/ML UNIT SUBQ SCH ×3 (06:35→18:22)
[2018-06-26 07:18] LABS: ANION GAP 11.8 (7.0-16.0); BUN - UREA NITROGEN 7 mg/dL (7-25); CALCIUM SERUM 8.7 mg/dL (8.6-10.3); CARBON DIOXIDE 24.1 mEq/L (21.0-31.0); CHLORIDE 104 mEq/L (98-107); CREATININE - SERUM 0.7 mg/dL (0.7-1.3); GFR AFRICAN-AMERICAN > 60.0 ml/min (>90); GFR NON AFRICAN-AMERICAN > 60.0 ml/min; GLUCOSE 119 mg/dL (70-105); POTASSIUM SERUM 3.9 mEq/L (3.5-5.1); SODIUM SERUM 136 mEq/L (136-145)
[2018-06-26 07:21] LABS: % BASOPHILS 0.8 % (0.0-2.0); % EOSINOPHILS 5.3 % (0.0-5.0); % LYMPHOCYTES 7.3 % (20.0-50.0); % MONOCYTES 6.9 % (2.0-10.0); % NEUTROPHILS 79.7 % (40.0-80.0); BASOPHILE ABSOLUTE 0.1 Th/cumm (0-0.2); EOSINOPHILE ABSOLUTE 0.8 Th/cmm (0.1-0.4); HEMATOCRIT 39.5 % (41.0-60); HEMOGLOBIN 12.9 gm/dL (12-16); LYMPHOCYTE ABSOLUTE 1.2 Th/cmm (1.5-3.0); MEAN CELL VOLUME 87.3 fl (80-99); MEAN CORPUSCULAR HEMOGLOBIN 28.6 pg (26.0-30.0); MEAN CORPUSCULAR HGB CONC 32.8 pg (28.0-36.0); MEAN PLATELET VOLUME 8.4 fl; MONOCYTE ABSOLUTE 1.1 Th/cmm (0.3-1.0); NEUTROPHILE ABSOLUTE 12.8 Th/cmm (1.8-8.0); PLATELET COUNT 284 Th/cmm (150-400); RED BLOOD COUNT 4.52 Mil/cmm (4.30-5.70); RED CELL DISTRIBUTION WIDTH 14.7 % (11.5-20.0)
--- NOTE | 2018-06-26 08:42 | Progress Notes ---
DATE: Chart reviewed and the patient interviewed. Also discussed the patient's condition with the staff and reviewed records and labs. The patient seems to be calmer and less irritable and less agitated. The patient also is easier to redirect him. The patient also still has difficulty with mood. Otherwise, the patient is compliant with taking his medications with no side effects of medications, which are Seroquel and Depakote. We will continue same dose. Also, we will get Depakote blood level and we will continue to follow up. JOB# [id number]
[2018-06-26] MEDS: Aspirin 81mg Chewable Tab GT SCH (09:37)
[2018-06-26] MEDS: Potassium Chloride 20 mEq ER Tab PO SCH (09:38)
[2018-06-26] MEDS: Lactobacillus Rhamnosus GG 15 Billion CFU CAP.SPRINK GT SCH (09:38)
[2018-06-26] MEDS: Ferrous Sulfate 300 MG/5 ML UDC GT SCH (09:41)
[2018-06-26] MEDS: Docusate Sodium 100 mg/10 mL UD GT SCH (09:48)
--- NOTE | 2018-06-26 12:35 | Infectious Disease Prog Note ---
Infectious Disease Subjective - Review of Systems Service Date: 06/26/18 Subjective: No new change, no fever. Infectious Disease Objective - Results Result Diagrams: 06/26/18 05:45 06/26/18 05:45 Recent Labs: Laboratory Last Values WBC 16.0 Th/cmm (4.8-10.8) H D 06/26/18 05:45 RBC 4.52 Mil/cmm (4.30-5.70) 06/26/18 05:45 Hgb 12.9 gm/dL (12-16) 06/26/18 05:45 Hct 39.5 % (41.0-60) L 06/26/18 05:45 MCV 87.3 fl (80-99) 06/26/18 05:45 MCH 28.6 pg (26.0-30.0) 06/26/18 05:45 MCHC Differential 32.8 pg (28.0-36.0) 06/26/18 05:45 RDW 14.7 % (11.5-20.0) 06/26/18 05:45 Plt Count 284 Th/cmm (150-400) 06/26/18 05:45 MPV 8.4 fl 06/26/18 05:45 Neutrophils % 79.7 % (40.0-80.0) 06/26/18 05:45 Lymphocytes % 7.3 % (20.0-50.0) L 06/26/18 05:45 Monocytes % 6.9 % (2.0-10.0) 06/26/18 05:45 Eosinophils % 5.3 % (0.0-5.0) H 06/26/18 05:45 Basophils % 0.8 % (0.0-2.0) 06/26/18 05:45 PT 9.9 SECONDS (9.5-11.5) 06/24/18 06:10 INR 0.95 (0.5-1.4) 06/24/18 06:10 PTT (Actin FS) 23.3 SECONDS (26.0-38.0) L 06/24/18 06:10 Sodium 136 mEq/L (136-145) 06/26/18 05:45 Potassium 3.9 mEq/L (3.5-5.1) 06/26/18 05:45 Chloride 104 mEq/L (98-107) 06/26/18 05:45 Carbon Dioxide 24.1 mEq/L (21.0-31.0) 06/26/18 05:45 Anion Gap 11.8 (7.0-16.0) 06/26/18 05:45 BUN 7 mg/dL (7-25) 06/26/18 05:45 Creatinine 0.7 mg/dL (0.7-1.3) 06/26/18 05:45 Est GFR ( Amer) > 60.0 ml/min (>90) 06/26/18 05:45 Est GFR (Non-Af Amer) > 60.0 ml/min 06/26/18 05:45 BUN/Creatinine Ratio 10.0 06/26/18 05:45 Glucose 119 mg/dL (70-105) H 06/26/18 05:45 POC Glucose 129 MG/DL (70 - 105) H 06/26/18 11:55 Whole Bld Lactic Acid 0.89 mmol/L (0.60-1.99) 06/21/18 00:10 Calcium 8.7 mg/dL (8.6-10.3) 06/26/18 05:45 Total Bilirubin 0.2 mg/dL (0.3-1.0) L 06/23/18 06:09 AST 19 U/L (13-39) 06/23/18 06:09 ALT 13 U/L (7-52) 06/23/18 06:09 Alkaline Phosphatase 103 U/L (34-104) 06/23/18 06:09 Ammonia 53 umol/L (16-53) 06/23/18 06:09 Total Protein 6.1 gm/dL (6.0-8.3) 06/23/18 06:09 Albumin 3.4 gm/dL (4.2-5.5) L 06/23/18 06:09 Globulin 2.7 gm/dL 06/23/18 06:09 Albumin/Globulin Ratio 1.3 (1.0-1.8) 06/23/18 06:09 Triglycerides 83 mg/dL (<150) 06/21/18 00:10 Cholesterol 133 mg/dL (<200) 06/21/18 00:10 LDL Cholesterol Direct 78 mg/dL (75-193) 06/21/18 00:10 HDL Cholesterol 33 mg/dL (23-92) 06/21/18 00:10 TSH 0.51 uIU/ml (0.34-5.60) 06/21/18 00:10 Urine Source RANDOM 06/25/18 00:10 Urine Color YELLOW 06/25/18 00:10 Urine Clarity CLEAR (CLEAR) 06/25/18 00:10 Urine pH 6.0 (4.6 - 8.0) 06/25/18 00:10 Ur Specific [place] 1.020 (1.005-1.030) 06/25/18 00:10 Urine Protein NEGATIVE mg/dL (NEGATIVE) 06/25/18 00:10 Urine Glucose (UA) NEGATIVE mg/dL (NEGATIVE) 06/25/18 00:10 Urine Ketones 15 mg/dL (NEGATIVE) H 06/25/18 00:10 Urine Blood NEGATIVE (NEGATIVE) 06/25/18 00:10 Urine Nitrate NEGATIVE (NEGATIVE) 06/25/18 00:10 Urine Bilirubin NEGATIVE (NEGATIVE) 06/25/18 00:10 Urine Ictotest NEGATIVE (NEGATIVE) 06/21/18 02:45 Urine Urobilinogen 0.2 E.U./dL (0.2 - 1.0) 06/25/18 00:10 Ur Leukocyte Esterase NEGATIVE (NEGATIVE) 06/25/18 00:10 Urine RBC 0-2 /hpf (0-5) H 06/21/18 02:45 Urine WBC 0-2 /hpf (0-5) 06/21/18 02:45 Ur Epithelial Cells FEW /lpf (FEW) 06/21/18 02:45 Urine Bacteria OCCASIONAL /hpf (NONE SEEN) 06/21/18 02:45 Urine Mucus MODERATE /lpf (FEW) 06/21/18 02:45 Salicylates < 25.0 mg/L (30.0-100.0) L 06/21/18 00:10 Urine Opiates Screen NEGATIVE (NEGATIVE) 06/21/18 02:45 Urine Methadone Screen NEGATIVE (NEGATIVE) 06/21/18 02:45 Acetaminophen < 10.0 ug/mL (10.0-30.0) L 06/21/18 00:10 Ur Barbiturates Screen NEGATIVE (NEGATIVE) 06/21/18 02:45 Valproic Acid 20.3 ug/mL (50.0-100.0) L 06/26/18 05:45 Ur Tricyclics Screen POSITIVE (NEGATIVE) H 06/21/18 02:45 Ur Phencyclidine Scrn NEGATIVE (NEGATIVE) 06/21/18 02:45 Amphetamines Screen NEGATIVE (NEGATIVE) 06/21/18 02:45 U Methamphetamines Scrn NEGATIVE (NEGATIVE) 06/21/18 02:45 U Benzodiazepines Scrn POSITIVE (NEGATIVE) H 06/21/18 02:45 U Cocaine Metab Screen NEGATIVE (NEGATIVE) 06/21/18 02:45 U Cannabinoids Screen NEGATIVE (NEGATIVE) 06/21/18 02:45 Ethyl Alcohol < 10 mg/dL (0-10) 06/21/18 00:10 RPR NONREACTIVE (NONREACTIVE) 06/21/18 00:10 - Physical Exam Vitals and I&O: Vital Signs Temp 97.3 F 06/26/18 11:46 Pulse 92 06/26/18 11:46 Resp 18 06/26/18 11:46 BP 130/64 06/26/18 11:46 Pulse Ox 98 06/26/18 11:46 Intake & Output 06/25/18 06/26/18 06/26/18 18:59 06:59 18:59 Intake Total 1200 200 Balance 1200 200 Weight (lbs) 86.545 kg 86.183 kg Intake: Oral 1200 200 Other: # Voids 3 4 # Bowel Movements 0 1 Stool Characteristics Soft Soft Formed Formed Weight Source Bedscale Bedscale Active Medications: Current Medications Acetaminophen (Tylenol) 650 mg GT Q6HR PRN PRN Reason: Mild Pain or Fever >101 Stop: 08/20/18 08:20 Last Admin: 06/21/18 21:21 Dose: 650 mg Acetaminophen (Tylenol Extra Strength) 1,000 mg GT Q8H PRN PRN Reason: Pain (Moderate) Stop: 08/20/18 08:20 Last Admin: 06/25/18 21:40 Dose: 1,000 mg Albuterol Sulfate (Albuterol 2.5mg/3ml Neb Ud) 2.5 mg HHN BID PRN PRN Reason: Shortness of Breath Last Admin: 06/25/18 23:19 Dose: 2.5 mg Ascorbic Acid (Vitamin C) 500 mg GT DAILY [facility] Stop: 08/20/18 10:59 Last Admin: 06/26/18 09:39 Dose: 500 mg Aspirin (Aspirin Chewable) 81 mg GT DAILY [facility] Stop: 08/20/18 08:59 Last Admin: 06/26/18 09:37 Dose: 81 mg Bisacodyl (Dulcolax 10 Mg Supp) 10 mg RC DAILY PRN PRN Reason: Constipation Stop: 08/20/18 08:20 Divalproex Sodium (Depakote Dr) 250 mg PO BID [facility] Stop: 08/25/18 03:29 Last Admin: 06/26/18 03:30 Dose: 250 mg Docusate Sodium (Colace) 100 mg GT DAILY [facility] Stop: 08/20/18 10:59 Last Admin: 06/26/18 09:48 Dose: Not Given Ferrous Sulfate (Iron) 450 mg GT DAILY [facility] Stop: 08/20/18 10:59 Last Admin: 06/26/18 09:41 Dose: 450 mg Heparin Sodium (Porcine) (Heparin) 5,000 units SUBQ Q12H [facility] Stop: 08/20/18 20:59 Last Admin: 06/26/18 09:50 Dose: 5,000 units Hydroxyzine HCl (Atarax) 10 mg GT TID PRN; Protocol PRN Reason: PRURITUS Stop: 08/20/18 08:20 Last Admin: 06/25/18 21:39 Dose: 10 mg Levofloxacin (Levaquin Pb) 500 mg in 100 mls @ 100 mls/hr IV Q24HR [facility] Stop: 08/23/18 14:59 Last Admin: 06/25/18 14:48 Dose: 100 mls/hr Insulin Aspart (Novolog Insulin Sliding Scale) 0 units SUBQ ACHS [facility]; Protocol Stop: 08/20/18 11:29 Last Admin: 06/26/18 12:07 Dose: Not Given Lactobacillus Rhamnosus (Culturelle 15b) 1 each GT DAILY [facility] Stop: 08/20/18 10:59 Last Admin: 06/26/18 09:38 Dose: 1 each Lactulose (Cephulac) 30 gm PO Q6HR [facility] Stop: 08/20/18 08:59 Last Admin: 06/26/18 12:06 Dose: Not Given Lorazepam (Ativan) 0.5 mg GT Q6H PRN; Protocol PRN Reason: Anxiety Stop: 08/20/18 08:20 Lorazepam (Ativan) 2 mg IVP Q6HR PRN; Protocol PRN Reason: Agitation Stop: 08/20/18 08:10 Last Admin: 06/26/18 00:08 Dose: 2 mg Lorazepam (Ativan) 1 mg PO TID [facility]; Protocol Stop: 08/22/18 08:59 Last Admin: 06/26/18 09:38 Dose: 1 mg Magnesium Hydroxide (Milk Of Magnesia) 30 ml GT HS PRN PRN Reason: Constipation Stop: 08/20/18 08:20 Metronidazole (Flagyl) 500 mg PO BID [facility] Stop: 07/01/18 16:59 Last Admin: 06/26/18 09:40 Dose: 500 mg Midodrine (Proamatine) 5 mg GT TID [facility] Stop: 08/20/18 08:59 Last Admin: 06/26/18 09:38 Dose: 5 mg Miscellaneous (Vte Chemical Prophylaxis Screen/ Admission) 1 ea PRN PRN PRN Reason: PROTOCOL Stop: 08/20/18 12:59 Miscellaneous (Probiotic Screen) 1 ea PRN PRN PRN Reason: PROTOCOL Stop: 08/22/18 14:29 Pantoprazole Sodium (Protonix) 40 mg GT QDAC [facility] Stop: 08/20/18 11:29 Last Admin: 06/26/18 06:29 Dose: 40 mg Pioglitazone HCl (Actos) 15 mg GT DAILY [facility] Stop: 08/20/18 08:59 Last Admin: 06/26/18 09:37 Dose: 15 mg Potassium Chloride (Klor-Con) 20 meq PO DAILY [facility] Stop: 08/20/18 08:59 Last Admin: 06/26/18 09:38 Dose: 20 meq Quetiapine Fumarate (Seroquel Xr) 200 mg PO BID [facility]; Protocol Stop: 08/22/18 08:59 Last Admin: 06/26/18 09:53 Dose: 200 mg Sodium Phosphate (Fleet Enema) 135 ml RC Q48H PRN PRN Reason: Constipation Stop: 08/20/18 08:20 Zolpidem Tartrate (Ambien) 10 mg GT HS [facility] Stop: 08/21/18 20:59 Last Admin: 06/25/18 21:40 Dose: 10 mg General: no acute distress, well developed, well nourished HEENT: atraumatic, normocephalic, PERRLA, EOMI Neck: supple, no thyromegaly Cardiovascular: S1S2, regular Lungs: clear to auscultation bilaterally, clear to percussion Abdomen: soft, no tender, no distended, no hepatomegaly Extremities: no cyanosis, no clubbing, no edema Neurological: awake, alert, oriented Skin: intact - Procedures Procedures: Procedures Procedure Code Date ASSISTANCE WITH RESPIRATORY VENTILATION, <24 HRS, CPAP [id number] 06/01/18 Infectious Disease Assmt/Plan - Problem List Patient Problems: All Active Problems Altered level of consciousness (Acute) R40.4 Diabetes (Acute) E11.9 Encephalopathy (Acute) G93.40 Iron deficiency (Acute) E61.1 Leukocytosis (Acute) D72.829 Osteoarthritis (Acute) M19.90 UTI (urinary tract infection) (Acute) - Assessment Assessment: 1. Leukocytosis.. 2. Psychosis. 3. Seizure d/o. 4. Aspiration pneumonia ( patient failed swallow eval). - Plan Plan: Continue levaquin and flagyl.
[2018-06-26 14:01] LABS: BAND NEUTROPHILE 3 % (0-10); EOSINOPHIL 7 % (0-5); LYMPHOCYTE 6 % (20-50); MONOCYTE 3 % (2-10); NEUTROPHILS 81 % (40-80)
[2018-06-26] MEDS: Levofloxacin 500mg/100mL 500 MG/100 ML BAG IV SCH (15:48)
--- NOTE | 2018-06-26 16:47 | Internal Medicine Prog Note ---
Internal Medicine Subjective - Subjective Patient is:: awake, verbal Per staff patient has:: tolerating meds Internal Medicine Objective - Results Result Diagrams: 06/26/18 05:45 06/26/18 05:45 Recent Labs: Laboratory Last Values WBC 16.0 Th/cmm (4.8-10.8) H D 06/26/18 05:45 RBC 4.52 Mil/cmm (4.30-5.70) 06/26/18 05:45 Hgb 12.9 gm/dL (12-16) 06/26/18 05:45 Hct 39.5 % (41.0-60) L 06/26/18 05:45 MCV 87.3 fl (80-99) 06/26/18 05:45 MCH 28.6 pg (26.0-30.0) 06/26/18 05:45 MCHC Differential 32.8 pg (28.0-36.0) 06/26/18 05:45 RDW 14.7 % (11.5-20.0) 06/26/18 05:45 Plt Count 284 Th/cmm (150-400) 06/26/18 05:45 MPV 8.4 fl 06/26/18 05:45 Neutrophils % 79.7 % (40.0-80.0) 06/26/18 05:45 Band Neutrophils % 3 % (0-10) 06/26/18 05:45 Lymphocytes % 7.3 % (20.0-50.0) L 06/26/18 05:45 Monocytes % 6.9 % (2.0-10.0) 06/26/18 05:45 Eosinophils % 5.3 % (0.0-5.0) H 06/26/18 05:45 Basophils % 0.8 % (0.0-2.0) 06/26/18 05:45 Neutrophils (Manual) 81 % (40-80) H 06/26/18 05:45 Lymphocytes 6 % (20-50) L 06/26/18 05:45 Monocytes 3 % (2-10) 06/26/18 05:45 Eosinophils 7 % (0-5) H 06/26/18 05:45 PT 9.9 SECONDS (9.5-11.5) 06/24/18 06:10 INR 0.95 (0.5-1.4) 06/24/18 06:10 PTT (Actin FS) 23.3 SECONDS (26.0-38.0) L 06/24/18 06:10 Sodium 136 mEq/L (136-145) 06/26/18 05:45 Potassium 3.9 mEq/L (3.5-5.1) 06/26/18 05:45 Chloride 104 mEq/L (98-107) 06/26/18 05:45 Carbon Dioxide 24.1 mEq/L (21.0-31.0) 06/26/18 05:45 Anion Gap 11.8 (7.0-16.0) 06/26/18 05:45 BUN 7 mg/dL (7-25) 06/26/18 05:45 Creatinine 0.7 mg/dL (0.7-1.3) 06/26/18 05:45 Est GFR ( Amer) > 60.0 ml/min (>90) 06/26/18 05:45 Est GFR (Non-Af Amer) > 60.0 ml/min 06/26/18 05:45 BUN/Creatinine Ratio 10.0 06/26/18 05:45 Glucose 119 mg/dL (70-105) H 06/26/18 05:45 POC Glucose 129 MG/DL (70 - 105) H 06/26/18 11:55 Whole Bld Lactic Acid 0.89 mmol/L (0.60-1.99) 06/21/18 00:10 Calcium 8.7 mg/dL (8.6-10.3) 06/26/18 05:45 Total Bilirubin 0.2 mg/dL (0.3-1.0) L 06/23/18 06:09 AST 19 U/L (13-39) 06/23/18 06:09 ALT 13 U/L (7-52) 06/23/18 06:09 Alkaline Phosphatase 103 U/L (34-104) 06/23/18 06:09 Ammonia 50 umol/L (16-53) 06/26/18 12:18 Total Protein 6.1 gm/dL (6.0-8.3) 06/23/18 06:09 Albumin 3.4 gm/dL (4.2-5.5) L 06/23/18 06:09 Globulin 2.7 gm/dL 06/23/18 06:09 Albumin/Globulin Ratio 1.3 (1.0-1.8) 06/23/18 06:09 Triglycerides 83 mg/dL (<150) 06/21/18 00:10 Cholesterol 133 mg/dL (<200) 06/21/18 00:10 LDL Cholesterol Direct 78 mg/dL (75-193) 06/21/18 00:10 HDL Cholesterol 33 mg/dL (23-92) 06/21/18 00:10 TSH 0.51 uIU/ml (0.34-5.60) 06/21/18 00:10 Urine Source RANDOM 06/25/18 00:10 Urine Color YELLOW 06/25/18 00:10 Urine Clarity CLEAR (CLEAR) 06/25/18 00:10 Urine pH 6.0 (4.6 - 8.0) 06/25/18 00:10 Ur Specific [place] 1.020 (1.005-1.030) 06/25/18 00:10 Urine Protein NEGATIVE mg/dL (NEGATIVE) 06/25/18 00:10 Urine Glucose (UA) NEGATIVE mg/dL (NEGATIVE) 06/25/18 00:10 Urine Ketones 15 mg/dL (NEGATIVE) H 06/25/18 00:10 Urine Blood NEGATIVE (NEGATIVE) 06/25/18 00:10 Urine Nitrate NEGATIVE (NEGATIVE) 06/25/18 00:10 Urine Bilirubin NEGATIVE (NEGATIVE) 06/25/18 00:10 Urine Ictotest NEGATIVE (NEGATIVE) 06/21/18 02:45 Urine Urobilinogen 0.2 E.U./dL (0.2 - 1.0) 06/25/18 00:10 Ur Leukocyte Esterase NEGATIVE (NEGATIVE) 06/25/18 00:10 Urine RBC 0-2 /hpf (0-5) H 06/21/18 02:45 Urine WBC 0-2 /hpf (0-5) 06/21/18 02:45 Ur Epithelial Cells FEW /lpf (FEW) 06/21/18 02:45 Urine Bacteria OCCASIONAL /hpf (NONE SEEN) 06/21/18 02:45 Urine Mucus MODERATE /lpf (FEW) 06/21/18 02:45 Salicylates < 25.0 mg/L (30.0-100.0) L 06/21/18 00:10 Urine Opiates Screen NEGATIVE (NEGATIVE) 06/21/18 02:45 Urine Methadone Screen NEGATIVE (NEGATIVE) 06/21/18 02:45 Acetaminophen < 10.0 ug/mL (10.0-30.0) L 06/21/18 00:10 Ur Barbiturates Screen NEGATIVE (NEGATIVE) 06/21/18 02:45 Valproic Acid 20.3 ug/mL (50.0-100.0) L 06/26/18 05:45 Ur Tricyclics Screen POSITIVE (NEGATIVE) H 06/21/18 02:45 Ur Phencyclidine Scrn NEGATIVE (NEGATIVE) 06/21/18 02:45 Amphetamines Screen NEGATIVE (NEGATIVE) 06/21/18 02:45 U Methamphetamines Scrn NEGATIVE (NEGATIVE) 06/21/18 02:45 U Benzodiazepines Scrn POSITIVE (NEGATIVE) H 06/21/18 02:45 U Cocaine Metab Screen NEGATIVE (NEGATIVE) 06/21/18 02:45 U Cannabinoids Screen NEGATIVE (NEGATIVE) 06/21/18 02:45 Ethyl Alcohol < 10 mg/dL (0-10) 06/21/18 00:10 RPR NONREACTIVE (NONREACTIVE) 06/21/18 00:10 - Physical Exam Vitals and I&O: Vital Signs Temp 96.8 F 06/26/18 15:21 Pulse 96 06/26/18 15:21 Resp 18 06/26/18 15:21 BP 122/70 06/26/18 15:21 Pulse Ox 98 06/26/18 15:21 Intake & Output 06/25/18 06/26/18 06/26/18 18:59 06:59 18:59 Intake Total 1300 200 Balance 1300 200 Weight (lbs) 86.545 kg 86.183 kg Intake: Intake, IV Amount 100 Levofloxacin 500mg/100mL 100 500 mg In 100 ml @ 100 mls/hr IV Q24HR [facility] Rx#: [id number] Oral 1200 200 Other: # Voids 3 4 # Bowel Movements 0 1 Stool Characteristics Soft Soft Formed Formed Weight Source Bedscale Bedscale Active Medications: Current Medications Acetaminophen (Tylenol) 650 mg GT Q6HR PRN PRN Reason: Mild Pain or Fever >101 Stop: 08/20/18 08:20 Last Admin: 06/21/18 21:21 Dose: 650 mg Acetaminophen (Tylenol Extra Strength) 1,000 mg GT Q8H PRN PRN Reason: Pain (Moderate) Stop: 08/20/18 08:20 Last Admin: 06/25/18 21:40 Dose: 1,000 mg Albuterol Sulfate (Albuterol 2.5mg/3ml Neb Ud) 2.5 mg HHN BID PRN PRN Reason: Shortness of Breath Last Admin: 06/25/18 23:19 Dose: 2.5 mg Ascorbic Acid (Vitamin C) 500 mg GT DAILY [facility] Stop: 08/20/18 10:59 Last Admin: 06/26/18 09:39 Dose: 500 mg Aspirin (Aspirin Chewable) 81 mg GT DAILY [facility] Stop: 08/20/18 08:59 Last Admin: 06/26/18 09:37 Dose: 81 mg Bisacodyl (Dulcolax 10 Mg Supp) 10 mg RC DAILY PRN PRN Reason: Constipation Stop: 08/20/18 08:20 Divalproex Sodium (Depakote Dr) 250 mg PO BID [facility] Stop: 08/25/18 03:29 Last Admin: 06/26/18 16:22 Dose: Not Given Docusate Sodium (Colace) 100 mg GT DAILY [facility] Stop: 08/20/18 10:59 Last Admin: 06/26/18 09:48 Dose: Not Given Ferrous Sulfate (Iron) 450 mg GT DAILY [facility] Stop: 08/20/18 10:59 Last Admin: 06/26/18 09:41 Dose: 450 mg Heparin Sodium (Porcine) (Heparin) 5,000 units SUBQ Q12H [facility] Stop: 08/20/18 20:59 Last Admin: 06/26/18 09:50 Dose: 5,000 units Hydroxyzine HCl (Atarax) 10 mg GT TID PRN; Protocol PRN Reason: PRURITUS Stop: 08/20/18 08:20 Last Admin: 06/25/18 21:39 Dose: 10 mg Levofloxacin (Levaquin Pb) 500 mg in 100 mls @ 100 mls/hr IV Q24HR [facility] Stop: 08/23/18 14:59 Last Admin: 06/26/18 15:48 Dose: 100 mls/hr Insulin Aspart (Novolog Insulin Sliding Scale) 0 units SUBQ ACHS [facility]; Protocol Stop: 08/20/18 11:29 Last Admin: 06/26/18 12:07 Dose: Not Given Lactobacillus Rhamnosus (Culturelle 15b) 1 each GT DAILY [facility] Stop: 08/20/18 10:59 Last Admin: 06/26/18 09:38 Dose: 1 each Lactulose (Cephulac) 30 gm PO Q6HR [facility] Stop: 08/20/18 08:59 Last Admin: 06/26/18 12:06 Dose: Not Given Lorazepam (Ativan) 0.5 mg GT Q6H PRN; Protocol PRN Reason: Anxiety Stop: 08/20/18 08:20 Lorazepam (Ativan) 2 mg IVP Q6HR PRN; Protocol PRN Reason: Agitation Stop: 08/20/18 08:10 Last Admin: 06/26/18 00:08 Dose: 2 mg Lorazepam (Ativan) 1 mg PO TID [facility]; Protocol Stop: 08/22/18 08:59 Last Admin: 06/26/18 13:08 Dose: Not Given Magnesium Hydroxide (Milk Of Magnesia) 30 ml GT HS PRN PRN Reason: Constipation Stop: 08/20/18 08:20 Metronidazole (Flagyl) 500 mg PO BID [facility] Stop: 07/01/18 16:59 Last Admin: 06/26/18 16:22 Dose: Not Given Midodrine (Proamatine) 5 mg GT TID [facility] Stop: 08/20/18 08:59 Last Admin: 06/26/18 13:08 Dose: Not Given Miscellaneous (Vte Chemical Prophylaxis Screen/ Admission) 1 ea [facility] PRN PRN PRN Reason: PROTOCOL Stop: 08/20/18 12:59 Miscellaneous (Probiotic Screen) 1 ea PRN PRN PRN Reason: PROTOCOL Stop: 08/22/18 14:29 Pantoprazole Sodium (Protonix) 40 mg GT QDAC [facility] Stop: 08/20/18 11:29 Last Admin: 06/26/18 06:29 Dose: 40 mg Pioglitazone HCl (Actos) 15 mg GT DAILY [facility] Stop: 08/20/18 08:59 Last Admin: 06/26/18 09:37 Dose: 15 mg Potassium Chloride (Klor-Con) 20 meq PO DAILY [facility] Stop: 08/20/18 08:59 Last Admin: 06/26/18 09:38 Dose: 20 meq Quetiapine Fumarate (Seroquel Xr) 200 mg PO BID [facility]; Protocol Stop: 08/22/18 08:59 Last Admin: 06/26/18 16:22 Dose: Not Given Sodium Phosphate (Fleet Enema) 135 ml RC Q48H PRN PRN Reason: Constipation Stop: 08/20/18 08:20 Zolpidem Tartrate (Ambien) 10 mg GT HS [facility] Stop: 08/21/18 20:59 Last Admin: 06/25/18 21:40 Dose: 10 mg General: alert HEENT: NC/AT, PERRLA Neck: Supple Lungs: CTAB Cardiovascular: RRR, Normal S1, Normal S2, without murmur Abdomen: soft, non-tender, non-distended Neurological: alert - Procedures Procedures: Procedures Procedure Code Date ASSISTANCE WITH RESPIRATORY VENTILATION, <24 HRS, CPAP [id number] 06/01/18 INSPECTION OF UPPER INTESTINAL TRACT, ENDO [id number] 06/21/18 REMOVAL OF FEEDING DEVICE FROM STOMACH, EXTERNAL APPROACH [id number] 06/21/18 Internal Medicine Assmt/Plan - Plan Plan: as per psych will monitor HOLD DISCHARGE Nutritional Asmnt/Malnutr-PDOC - Dietary Evaluation Malnutrition Findings (Please click <Entered> for more info): Nutritional Asmnt/Malnutrition Start: 06/26/18 15: 31 Text: Status: Complete Freq: Protocol: Document 06/26/18 15:31 CONNOR (Rec: 06/26/18 15:46 CONNOR LEONE) Nutritional Asmnt/Malnutrition Patient General Information Nutritional Screening Moderate Risk Diagnosis ALOC, increased ammonia, leukocytosis Pertinent Medical Hx/Surgical Hx PEG/G Tube, ESRD, seizures, PUD/GERD, asthma/COPD, status post CVA and TIA, bipolar disorder, GERD, MRSA, gastritis, HTN, DM, status post cellulitis Subjective Information Pt sleeping at time of visit. Pt placed on NPO status by ST after swallow eval today. Per nurse notes: pt was eating well and PO intake 75% prior to swallow eval. Pt had PEG tube removed on 06/24. Current Diet Order/ Nutrition Support NPO Pertinent Medications novolog, culturelle, colace, iron, heparin, Vit C, dulcolax , protonix, klor-con, seroquel Xr Pertinent Labs 06/26: glucose 119, POC 109 06/25: glucose 117, POC 108-130 Nutritional Hx/Data Height 1.68 m Height (Calculated Centimeters) 167.6 Current Weight (lbs) 86.183 kg Weight (Calculated Kilograms) 86.2 Weight (Calculated Grams) 24357.6 [place] Body Weight 142 lb Body Mass Index (BMI) 30.7 Weight Status Obese GI Symptoms GI Symptoms None Last BM 06/22 Difficult in: Swallowing Food Allergies No Skin Integrity/Comment: PEG removed, gastrostomy Current %PO Good (75-100%) Estimated Nutritional Goals BEE in Kcals: Adj wt of IBW Calories/Kcals/Kg 25-30 (based on adj wt 70 kg) Kcals Calculated 3550-2148 Protein: Adj wt of IBW Protein g/k.8-1 (based on adj wt 70 kg) Protein Calculated 56-70 g Fluid: ml 3708-4859 (1 ml/kcal) Nutritional Problem 1. Problem Problem inadequate energy intake Etiology swallowing impairment Signs/Symptoms: NPO status after swallow eval and no alternate route of nutrition in place Malnutrition Alert Is there a minimum of two criteria No selected? Query Text:Check all the applicable criteria. A minimum of two criteria are recommended for diagnosis of either severe or non-severe malnutrition. Malnutrition Related to Morbid Obesity Malnutrition related to morbid obesity No Intervention/Recommendation Comments 1. Monitor NPO status. Consider alternate route of nutrition if pt unable to tolerate PO intake after swallow eval 06/27 2. Monitor wt, labs, and skin integrity 3. F/U as high risk in 2-3 days, 06/28-06/29 Expected Outcomes/Goals Expected Outcomes/Goals 1. Pt to meet at least 75% of nutritional needs from route of nutrition per ST 2. 2. Wt stability, skin to remain intact, labs to approach WNL.
[2018-06-26] MEDS: D5-0.45NS 1,000 ML IV SCH (20:56)
[2018-06-27] MEDS: INSULIN ASPART SLIDING SCALE 100 UNITS/ML UNIT SUBQ SCH ×5 (04:30→21:34)
[2018-06-27] MEDS: Lactulose 10 Gm/15 mL 30mL UDC PO SCH ×4 (04:31→17:41)
[2018-06-27] MEDS: Pantoprazole 40 mg/Packet GT SCH (06:38)
[2018-06-27 06:45] LABS: % BASOPHILS 4.2 % (0.0-2.0); % EOSINOPHILS 15.7 % (0.0-5.0); % LYMPHOCYTES 17.7 % (20.0-50.0); % MONOCYTES 7.8 % (2.0-10.0); % NEUTROPHILS 54.6 % (40.0-80.0); BASOPHILE ABSOLUTE 0.4 Th/cumm (0-0.2); EOSINOPHILE ABSOLUTE 1.5 Th/cmm (0.1-0.4); HEMATOCRIT 38.3 % (41.0-60); HEMOGLOBIN 12.7 gm/dL (12-16); LYMPHOCYTE ABSOLUTE 1.6 Th/cmm (1.5-3.0); MEAN CELL VOLUME 86.5 fl (80-99); MEAN CORPUSCULAR HEMOGLOBIN 28.7 pg (26.0-30.0); MEAN CORPUSCULAR HGB CONC 33.2 pg (28.0-36.0); MEAN PLATELET VOLUME 8.1 fl; MONOCYTE ABSOLUTE 0.7 Th/cmm (0.3-1.0); NEUTROPHILE ABSOLUTE 5.1 Th/cmm (1.8-8.0); PLATELET COUNT 316 Th/cmm (150-400); RED BLOOD COUNT 4.42 Mil/cmm (4.30-5.70); WHITE BLOOD COUNT 9.3 Th/cmm (4.8-10.8)
[2018-06-27 07:04] LABS: ANION GAP 12.3 (7.0-16.0); BUN - UREA NITROGEN 5 mg/dL (7-25); CALCIUM SERUM 8.8 mg/dL (8.6-10.3); CARBON DIOXIDE 22.8 mEq/L (21.0-31.0); CHLORIDE 105 mEq/L (98-107); CREATININE - SERUM 0.7 mg/dL (0.7-1.3); GFR AFRICAN-AMERICAN > 60.0 ml/min (>90); GFR NON AFRICAN-AMERICAN > 60.0 ml/min; GLUCOSE 133 mg/dL (70-105); POTASSIUM SERUM 4.1 mEq/L (3.5-5.1); SODIUM SERUM 136 mEq/L (136-145)
[2018-06-27] MEDS: D5-0.45NS 1,000 ML IV SCH ×2 (07:41→21:24)
[2018-06-27] MEDS: Ferrous Sulfate 300 MG/5 ML UDC GT SCH (09:59)
[2018-06-27] MEDS: Aspirin 81mg Chewable Tab GT SCH (09:59)
[2018-06-27] MEDS: Docusate Sodium 100 mg/10 mL UD GT SCH (09:59)
[2018-06-27] MEDS: Potassium Chloride 20 mEq ER Tab PO SCH (10:00)
[2018-06-27] MEDS: Lactobacillus Rhamnosus GG 15 Billion CFU CAP.SPRINK GT SCH (10:00)
--- NOTE | 2018-06-27 14:27 | Internal Medicine Prog Note ---
Internal Medicine Subjective - Subjective Patient is:: awake, verbal, other (improving, less agitated ) Per staff patient has:: tolerating meds Internal Medicine Objective - Results Result Diagrams: 06/27/18 06:05 06/27/18 06:05 Recent Labs: Laboratory Last Values WBC 9.3 Th/cmm (4.8-10.8) 06/27/18 06:05 RBC 4.42 Mil/cmm (4.30-5.70) 06/27/18 06:05 Hgb 12.7 gm/dL (12-16) 06/27/18 06:05 Hct 38.3 % (41.0-60) L 06/27/18 06:05 MCV 86.5 fl (80-99) 06/27/18 06:05 MCH 28.7 pg (26.0-30.0) 06/27/18 06:05 MCHC Differential 33.2 pg (28.0-36.0) 06/27/18 06:05 RDW 15.0 % (11.5-20.0) 06/27/18 06:05 Plt Count 316 Th/cmm (150-400) 06/27/18 06:05 MPV 8.1 fl 06/27/18 06:05 Neutrophils % 54.6 % (40.0-80.0) 06/27/18 06:05 Band Neutrophils % 3 % (0-10) 06/26/18 05:45 Lymphocytes % 17.7 % (20.0-50.0) L 06/27/18 06:05 Monocytes % 7.8 % (2.0-10.0) 06/27/18 06:05 Eosinophils % 15.7 % (0.0-5.0) H 06/27/18 06:05 Basophils % 4.2 % (0.0-2.0) H 06/27/18 06:05 Neutrophils (Manual) 81 % (40-80) H 06/26/18 05:45 Lymphocytes 6 % (20-50) L 06/26/18 05:45 Monocytes 3 % (2-10) 06/26/18 05:45 Eosinophils 7 % (0-5) H 06/26/18 05:45 PT 9.9 SECONDS (9.5-11.5) 06/24/18 06:10 INR 0.95 (0.5-1.4) 06/24/18 06:10 PTT (Actin FS) 23.3 SECONDS (26.0-38.0) L 06/24/18 06:10 Sodium 136 mEq/L (136-145) 06/27/18 06:05 Potassium 4.1 mEq/L (3.5-5.1) 06/27/18 06:05 Chloride 105 mEq/L (98-107) 06/27/18 06:05 Carbon Dioxide 22.8 mEq/L (21.0-31.0) 06/27/18 06:05 Anion Gap 12.3 (7.0-16.0) 06/27/18 06:05 BUN 5 mg/dL (7-25) L 06/27/18 06:05 Creatinine 0.7 mg/dL (0.7-1.3) 06/27/18 06:05 Est GFR ( Amer) > 60.0 ml/min (>90) 06/27/18 06:05 Est GFR (Non-Af Amer) > 60.0 ml/min 06/27/18 06:05 BUN/Creatinine Ratio 7.1 06/27/18 06:05 Glucose 133 mg/dL (70-105) H 06/27/18 06:05 POC Glucose 119 MG/DL (70 - 105) H 06/27/18 12:14 Whole Bld Lactic Acid 0.89 mmol/L (0.60-1.99) 06/21/18 00:10 Calcium 8.8 mg/dL (8.6-10.3) 06/27/18 06:05 Total Bilirubin 0.2 mg/dL (0.3-1.0) L 06/23/18 06:09 AST 19 U/L (13-39) 06/23/18 06:09 ALT 13 U/L (7-52) 06/23/18 06:09 Alkaline Phosphatase 103 U/L (34-104) 06/23/18 06:09 Ammonia 50 umol/L (16-53) 06/26/18 12:18 Total Protein 6.1 gm/dL (6.0-8.3) 06/23/18 06:09 Albumin 3.4 gm/dL (4.2-5.5) L 06/23/18 06:09 Globulin 2.7 gm/dL 06/23/18 06:09 Albumin/Globulin Ratio 1.3 (1.0-1.8) 06/23/18 06:09 Triglycerides 83 mg/dL (<150) 06/21/18 00:10 Cholesterol 133 mg/dL (<200) 06/21/18 00:10 LDL Cholesterol Direct 78 mg/dL (75-193) 06/21/18 00:10 HDL Cholesterol 33 mg/dL (23-92) 06/21/18 00:10 TSH 0.51 uIU/ml (0.34-5.60) 06/21/18 00:10 Urine Source RANDOM 06/25/18 00:10 Urine Color YELLOW 06/25/18 00:10 Urine Clarity CLEAR (CLEAR) 06/25/18 00:10 Urine pH 6.0 (4.6 - 8.0) 06/25/18 00:10 Ur Specific [place] 1.020 (1.005-1.030) 06/25/18 00:10 Urine Protein NEGATIVE mg/dL (NEGATIVE) 06/25/18 00:10 Urine Glucose (UA) NEGATIVE mg/dL (NEGATIVE) 06/25/18 00:10 Urine Ketones 15 mg/dL (NEGATIVE) H 06/25/18 00:10 Urine Blood NEGATIVE (NEGATIVE) 06/25/18 00:10 Urine Nitrate NEGATIVE (NEGATIVE) 06/25/18 00:10 Urine Bilirubin NEGATIVE (NEGATIVE) 06/25/18 00:10 Urine Ictotest NEGATIVE (NEGATIVE) 06/21/18 02:45 Urine Urobilinogen 0.2 E.U./dL (0.2 - 1.0) 06/25/18 00:10 Ur Leukocyte Esterase NEGATIVE (NEGATIVE) 06/25/18 00:10 Urine RBC 0-2 /hpf (0-5) H 06/21/18 02:45 Urine WBC 0-2 /hpf (0-5) 06/21/18 02:45 Ur Epithelial Cells FEW /lpf (FEW) 06/21/18 02:45 Urine Bacteria OCCASIONAL /hpf (NONE SEEN) 06/21/18 02:45 Urine Mucus MODERATE /lpf (FEW) 06/21/18 02:45 Salicylates < 25.0 mg/L (30.0-100.0) L 06/21/18 00:10 Urine Opiates Screen NEGATIVE (NEGATIVE) 06/21/18 02:45 Urine Methadone Screen NEGATIVE (NEGATIVE) 06/21/18 02:45 Acetaminophen < 10.0 ug/mL (10.0-30.0) L 06/21/18 00:10 Ur Barbiturates Screen NEGATIVE (NEGATIVE) 06/21/18 02:45 Valproic Acid 20.3 ug/mL (50.0-100.0) L 06/26/18 05:45 Ur Tricyclics Screen POSITIVE (NEGATIVE) H 06/21/18 02:45 Ur Phencyclidine Scrn NEGATIVE (NEGATIVE) 06/21/18 02:45 Amphetamines Screen NEGATIVE (NEGATIVE) 06/21/18 02:45 U Methamphetamines Scrn NEGATIVE (NEGATIVE) 06/21/18 02:45 U Benzodiazepines Scrn POSITIVE (NEGATIVE) H 06/21/18 02:45 U Cocaine Metab Screen NEGATIVE (NEGATIVE) 06/21/18 02:45 U Cannabinoids Screen NEGATIVE (NEGATIVE) 06/21/18 02:45 Ethyl Alcohol < 10 mg/dL (0-10) 06/21/18 00:10 RPR NONREACTIVE (NONREACTIVE) 06/21/18 00:10 - Physical Exam Vitals and I&O: Vital Signs Temp 97.6 F 06/27/18 12:00 Pulse 97 06/27/18 12:00 Resp 18 06/27/18 12:00 BP 161/80 06/27/18 12:00 Pulse Ox 99 06/27/18 11:44 Intake & Output 06/26/18 06/27/18 06/27/18 18:59 06:59 18:59 Intake Total 450 1000 Balance 450 1000 Weight (lbs) 86.183 kg 84.907 kg Intake: Intake, IV Amount 100 1000 D5-0.45NS 1,000 ml @ 100 1000 mls/hr IV .Q10H [facility] Rx#: [id number] Levofloxacin 500mg/100mL 100 500 mg In 100 ml @ 100 mls/hr IV Q24HR [facility] Rx#: [id number] Oral 350 Other: # Voids 4 2 # Bowel Movements 1 0 Weight Source Bedscale Bedscale Active Medications: Current Medications Acetaminophen (Tylenol) 650 mg GT Q6HR PRN PRN Reason: Mild Pain or Fever >101 Stop: 08/20/18 08:20 Last Admin: 06/21/18 21:21 Dose: 650 mg Acetaminophen (Tylenol Extra Strength) 1,000 mg GT Q8H PRN PRN Reason: Pain (Moderate) Stop: 08/20/18 08:20 Last Admin: 06/25/18 21:40 Dose: 1,000 mg Albuterol Sulfate (Albuterol 2.5mg/3ml Neb Ud) 2.5 mg HHN BID PRN PRN Reason: Shortness of Breath Last Admin: 06/25/18 23:19 Dose: 2.5 mg Ascorbic Acid (Vitamin C) 500 mg GT DAILY [facility] Stop: 08/20/18 10:59 Last Admin: 06/27/18 09:59 Dose: Not Given Aspirin (Aspirin Chewable) 81 mg GT DAILY [facility] Stop: 08/20/18 08:59 Last Admin: 06/27/18 09:59 Dose: Not Given Bisacodyl (Dulcolax 10 Mg Supp) 10 mg RC DAILY PRN PRN Reason: Constipation Stop: 08/20/18 08:20 Divalproex Sodium (Depakote Dr) 250 mg PO BID [facility] Stop: 08/25/18 03:29 Last Admin: 06/27/18 09:59 Dose: Not Given Docusate Sodium (Colace) 100 mg GT DAILY [facility] Stop: 08/20/18 10:59 Last Admin: 06/27/18 09:59 Dose: Not Given Ferrous Sulfate (Iron) 450 mg GT DAILY [facility] Stop: 08/20/18 10:59 Last Admin: 06/27/18 09:59 Dose: Not Given Heparin Sodium (Porcine) (Heparin) 5,000 units SUBQ Q12H [facility] Stop: 08/20/18 20:59 Last Admin: 06/27/18 10:00 Dose: Not Given Hydroxyzine HCl (Atarax) 10 mg GT TID PRN; Protocol PRN Reason: PRURITUS Stop: 08/20/18 08:20 Last Admin: 06/25/18 21:39 Dose: 10 mg Levofloxacin (Levaquin Pb) 500 mg in 100 mls @ 100 mls/hr IV Q24HR [facility] Stop: 08/23/18 14:59 Last Infusion: 06/26/18 16:48 Dose: Infused Dextrose/Sodium Chloride (D5-0.45ns) 1,000 mls @ 100 mls/hr IV .Q10H [facility] Stop: 08/25/18 18:21 Last Admin: 06/27/18 07:41 Dose: 100 mls/hr Insulin Aspart (Novolog Insulin Sliding Scale) 0 units SUBQ ACHS [facility]; Protocol Stop: 08/20/18 11:29 Last Admin: 06/27/18 13:13 Dose: Not Given Lactobacillus Rhamnosus (Culturelle 15b) 1 each GT DAILY [facility] Stop: 08/20/18 10:59 Last Admin: 06/27/18 10:00 Dose: Not Given Lactulose (Cephulac) 30 gm PO Q6HR [facility] Stop: 08/20/18 08:59 Last Admin: 06/27/18 13:13 Dose: Not Given Lorazepam (Ativan) 0.5 mg GT Q6H PRN; Protocol PRN Reason: Anxiety Stop: 08/20/18 08:20 Lorazepam (Ativan) 2 mg IVP Q6HR PRN; Protocol PRN Reason: Agitation Stop: 08/20/18 08:10 Last Admin: 06/27/18 08:52 Dose: 2 mg Lorazepam (Ativan) 1 mg PO TID [facility]; Protocol Stop: 08/22/18 08:59 Last Admin: 06/27/18 13:13 Dose: Not Given Magnesium Hydroxide (Milk Of Magnesia) 30 ml GT HS PRN PRN Reason: Constipation Stop: 08/20/18 08:20 Metronidazole (Flagyl) 500 mg PO BID [facility] Stop: 07/01/18 16:59 Last Admin: 06/27/18 10:00 Dose: Not Given Midodrine (Proamatine) 5 mg GT TID [facility] Stop: 08/20/18 08:59 Last Admin: 06/27/18 13:14 Dose: Not Given Miscellaneous (Vte Chemical Prophylaxis Screen/ Admission) 1 ea [facility] PRN PRN PRN Reason: PROTOCOL Stop: 08/20/18 12:59 Miscellaneous (Probiotic Screen) 1 ea MC PRN PRN PRN Reason: PROTOCOL Stop: 08/22/18 14:29 Pantoprazole Sodium (Protonix) 40 mg GT QDAC [facility] Stop: 08/20/18 11:29 Last Admin: 06/27/18 06:38 Dose: Not Given Pioglitazone HCl (Actos) 15 mg GT DAILY [facility] Stop: 08/20/18 08:59 Last Admin: 10/11/18 10:00 Dose: Not Given Potassium Chloride (Klor-Con) 20 meq PO DAILY [facility] Stop: 08/20/18 08:59 Last Admin: 06/27/18 10:00 Dose: Not Given Quetiapine Fumarate (Seroquel Xr) 200 mg PO BID [facility]; Protocol Stop: 08/22/18 08:59 Last Admin: 06/27/18 10:00 Dose: Not Given Sodium Phosphate (Fleet Enema) 135 ml RC Q48H PRN PRN Reason: Constipation Stop: 08/20/18 08:20 Zolpidem Tartrate (Ambien) 10 mg GT HS WINIFRED Stop: 08/21/18 20:59 Last Admin: 06/26/18 20:06 Dose: Not Given General: alert HEENT: NC/AT, PERRLA Neck: Supple Lungs: CTAB Cardiovascular: RRR, Normal S1, Normal S2, without murmur Abdomen: soft, non-tender, non-distended Neurological: alert - Procedures Procedures: Procedures Procedure Code Date ASSISTANCE WITH RESPIRATORY VENTILATION, <24 HRS, CPAP [id number] 06/01/18 INSPECTION OF UPPER INTESTINAL TRACT, ENDO [id number] 06/21/18 REMOVAL OF FEEDING DEVICE FROM STOMACH, EXTERNAL APPROACH [id number] 06/21/18 Internal Medicine Assmt/Plan - Assessment Assessment: aloc acute uti htn dm copd esrd seizure disorder - Plan Plan: HOLD DISCHARGE monitor vitals/diet labs Nutritional Asmnt/Malnutr-PDOC - Dietary Evaluation Malnutrition Findings (Please click <Entered> for more info): Nutritional Asmnt/Malnutrition Start: 06/26/18 15: 31 Text: Status: Complete Freq: Protocol: Document 06/26/18 15:31 CONNOR (Rec: 06/26/18 15:46 CONNOR LEONE) Nutritional Asmnt/Malnutrition Patient General Information Nutritional Screening Moderate Risk Diagnosis ALOC, increased ammonia, leukocytosis Pertinent Medical Hx/Surgical Hx PEG/G Tube, ESRD, seizures, PUD/GERD, asthma/COPD, status post CVA and TIA, bipolar disorder, GERD, MRSA, gastritis, HTN, DM, status post cellulitis Subjective Information Pt sleeping at time of visit. Pt placed on NPO status after pt failed swallow eval today. Per nurse notes: pt was eating well and PO intake 75% prior to swallow eval. Pt had PEG tube and removed on 06/24. Per ST note, will reassess tommorrow 06/27. Current Diet Order/ Nutrition Support NPO Pertinent Medications novolog, culturelle, colace, iron, heparin, Vit C, dulcolax , protonix, klor-con, seroquel Xr, levaquin, Pertinent Labs 06/26: glucose 119, POC 109- 129 06/25: glucose 117, POC 108-130 Nutritional Hx/Data Height 1.68 m Height (Calculated Centimeters) 167.6 Current Weight (lbs) 86.183 kg Weight (Calculated Kilograms) 86.2 Weight (Calculated Grams) 49174.6 [place] Body Weight 142 lb Body Mass Index (BMI) 30.7 Weight Status Obese GI Symptoms GI Symptoms None Last BM 06/26 Difficult in: Swallowing Food Allergies No Skin Integrity/Comment: PEG removed, gastrostomy skin intact elizabeth 16 Current %PO Good (75-100%) Estimated Nutritional Goals BEE in Kcals: Adj wt of IBW Calories/Kcals/Kg 25-30 (based on adj wt 70 kg) Kcals Calculated 4747-0859 Protein: Adj wt of IBW Protein g/k (based on adj wt 70 kg) Protein Calculated 70 g Fluid: ml 5504-7955 (1 ml/kcal) Nutritional Problem 1. Problem Problem inadequate energy intake Etiology swallowing impairment Signs/Symptoms: NPO status after swallow eval and no alternate route of nutrition in place Malnutrition Alert Is there a minimum of two criteria No selected? Query Text:Check all the applicable criteria. A minimum of two criteria are recommended for diagnosis of either severe or non-severe malnutrition. Malnutrition Related to Morbid Obesity Malnutrition related to morbid obesity No Intervention/Recommendation Comments 1. Monitor NPO status. Consider alternate route of nutrition if pt unable to tolerate PO intake after swallow eval 06/27 2. Monitor wt, labs, and skin integrity 3. F/U as high risk in 2-3 days, 06/28-06/29 Expected Outcomes/Goals Expected Outcomes/Goals 1. Pt to meet at least 75% of nutritional needs from route of nutrition per ST 2. Wt stability, skin to remain intact, labs to approach WNL. Reviewed by Zoe Marsh RD
[2018-06-27] MEDS: Levofloxacin 500mg/100mL 500 MG/100 ML BAG IV SCH (16:31)
[2018-06-28] MEDS: Lactulose 10 Gm/15 mL 30mL UDC PO SCH ×5 (01:43→17:00)
[2018-06-28] MEDS: INSULIN ASPART SLIDING SCALE 100 UNITS/ML UNIT SUBQ SCH ×4 (06:48→21:58)
[2018-06-28] MEDS: Pantoprazole 40 mg/Packet GT SCH (06:48)
--- NOTE | 2018-06-28 07:10 | Progress Notes ---
DATE: 06/28/2018 SUBJECTIVE: Chart reviewed and the patient interviewed. Also discussed the patient's condition with the staff and reviewed records and labs. The patient is calm and he seems to be less irritable and less agitated. The patient also is interacting more. The patient has less behavioral problems. No side effects of medications. ASSESSMENT: The patient is less agitated and less irritable. TREATMENT PLAN: Continue to monitor his medications and behavior and we will continue to follow up. The patient can be treated in lower level of care. JOB# [id number]
[2018-06-28] MEDS: Aspirin 81mg Chewable Tab GT SCH (08:16)
[2018-06-28] MEDS: Ferrous Sulfate 300 MG/5 ML UDC GT SCH (08:16)
[2018-06-28] MEDS: Docusate Sodium 100 mg/10 mL UD GT SCH (08:16)
[2018-06-28] MEDS: Lactobacillus Rhamnosus GG 15 Billion CFU CAP.SPRINK GT SCH (08:17)
[2018-06-28] MEDS: Potassium Chloride 20 mEq ER Tab PO SCH (08:19)
[2018-06-28] MEDS ORDERED: Haloperidol Lactate 5 mg/mL 1mL Vial IM ONE (11:20)
[2018-06-28] MEDS ORDERED: Morphine Sulfate 2 mg/mL 1mL Syr IVP PRN (11:26)
--- NOTE | 2018-06-28 12:22 | Infectious Disease Prog Note ---
Infectious Disease Subjective - Review of Systems Service Date: 06/28/18 Subjective: No new change, no fever. Infectious Disease Objective - Results Result Diagrams: 06/27/18 06:05 06/27/18 06:05 Recent Labs: Laboratory Last Values WBC 9.3 Th/cmm (4.8-10.8) 06/27/18 06:05 RBC 4.42 Mil/cmm (4.30-5.70) 06/27/18 06:05 Hgb 12.7 gm/dL (12-16) 06/27/18 06:05 Hct 38.3 % (41.0-60) L 06/27/18 06:05 MCV 86.5 fl (80-99) 06/27/18 06:05 MCH 28.7 pg (26.0-30.0) 06/27/18 06:05 MCHC Differential 33.2 pg (28.0-36.0) 06/27/18 06:05 RDW 15.0 % (11.5-20.0) 06/27/18 06:05 Plt Count 316 Th/cmm (150-400) 06/27/18 06:05 MPV 8.1 fl 06/27/18 06:05 Neutrophils % 54.6 % (40.0-80.0) 06/27/18 06:05 Band Neutrophils % 3 % (0-10) 06/26/18 05:45 Lymphocytes % 17.7 % (20.0-50.0) L 06/27/18 06:05 Monocytes % 7.8 % (2.0-10.0) 06/27/18 06:05 Eosinophils % 15.7 % (0.0-5.0) H 06/27/18 06:05 Basophils % 4.2 % (0.0-2.0) H 06/27/18 06:05 Neutrophils (Manual) 81 % (40-80) H 06/26/18 05:45 Lymphocytes 6 % (20-50) L 06/26/18 05:45 Monocytes 3 % (2-10) 06/26/18 05:45 Eosinophils 7 % (0-5) H 06/26/18 05:45 PT 9.9 SECONDS (9.5-11.5) 06/24/18 06:10 INR 0.95 (0.5-1.4) 06/24/18 06:10 PTT (Actin FS) 23.3 SECONDS (26.0-38.0) L 06/24/18 06:10 Sodium 136 mEq/L (136-145) 06/27/18 06:05 Potassium 4.1 mEq/L (3.5-5.1) 06/27/18 06:05 Chloride 105 mEq/L (98-107) 06/27/18 06:05 Carbon Dioxide 22.8 mEq/L (21.0-31.0) 06/27/18 06:05 Anion Gap 12.3 (7.0-16.0) 06/27/18 06:05 BUN 5 mg/dL (7-25) L 06/27/18 06:05 Creatinine 0.7 mg/dL (0.7-1.3) 06/27/18 06:05 Est GFR ( Amer) > 60.0 ml/min (>90) 06/27/18 06:05 Est GFR (Non-Af Amer) > 60.0 ml/min 06/27/18 06:05 BUN/Creatinine Ratio 7.1 06/27/18 06:05 Glucose 133 mg/dL (70-105) H 06/27/18 06:05 POC Glucose 131 MG/DL (70 - 105) H 06/28/18 11:45 Whole Bld Lactic Acid 0.89 mmol/L (0.60-1.99) 06/21/18 00:10 Calcium 8.8 mg/dL (8.6-10.3) 06/27/18 06:05 Total Bilirubin 0.2 mg/dL (0.3-1.0) L 06/23/18 06:09 AST 19 U/L (13-39) 06/23/18 06:09 ALT 13 U/L (7-52) 06/23/18 06:09 Alkaline Phosphatase 103 U/L (34-104) 06/23/18 06:09 Ammonia 50 umol/L (16-53) 06/26/18 12:18 Total Protein 6.1 gm/dL (6.0-8.3) 06/23/18 06:09 Albumin 3.4 gm/dL (4.2-5.5) L 06/23/18 06:09 Globulin 2.7 gm/dL 06/23/18 06:09 Albumin/Globulin Ratio 1.3 (1.0-1.8) 06/23/18 06:09 Triglycerides 83 mg/dL (<150) 06/21/18 00:10 Cholesterol 133 mg/dL (<200) 06/21/18 00:10 LDL Cholesterol Direct 78 mg/dL (75-193) 06/21/18 00:10 HDL Cholesterol 33 mg/dL (23-92) 06/21/18 00:10 TSH 0.51 uIU/ml (0.34-5.60) 06/21/18 00:10 Urine Source RANDOM 06/25/18 00:10 Urine Color YELLOW 06/25/18 00:10 Urine Clarity CLEAR (CLEAR) 06/25/18 00:10 Urine pH 6.0 (4.6 - 8.0) 06/25/18 00:10 Ur Specific [place] 1.020 (1.005-1.030) 06/25/18 00:10 Urine Protein NEGATIVE mg/dL (NEGATIVE) 06/25/18 00:10 Urine Glucose (UA) NEGATIVE mg/dL (NEGATIVE) 06/25/18 00:10 Urine Ketones 15 mg/dL (NEGATIVE) H 06/25/18 00:10 Urine Blood NEGATIVE (NEGATIVE) 06/25/18 00:10 Urine Nitrate NEGATIVE (NEGATIVE) 06/25/18 00:10 Urine Bilirubin NEGATIVE (NEGATIVE) 06/25/18 00:10 Urine Ictotest NEGATIVE (NEGATIVE) 06/21/18 02:45 Urine Urobilinogen 0.2 E.U./dL (0.2 - 1.0) 06/25/18 00:10 Ur Leukocyte Esterase NEGATIVE (NEGATIVE) 06/25/18 00:10 Urine RBC 0-2 /hpf (0-5) H 06/21/18 02:45 Urine WBC 0-2 /hpf (0-5) 06/21/18 02:45 Ur Epithelial Cells FEW /lpf (FEW) 06/21/18 02:45 Urine Bacteria OCCASIONAL /hpf (NONE SEEN) 06/21/18 02:45 Urine Mucus MODERATE /lpf (FEW) 06/21/18 02:45 Salicylates < 25.0 mg/L (30.0-100.0) L 06/21/18 00:10 Urine Opiates Screen NEGATIVE (NEGATIVE) 06/21/18 02:45 Urine Methadone Screen NEGATIVE (NEGATIVE) 06/21/18 02:45 Acetaminophen < 10.0 ug/mL (10.0-30.0) L 06/21/18 00:10 Ur Barbiturates Screen NEGATIVE (NEGATIVE) 06/21/18 02:45 Valproic Acid 20.3 ug/mL (50.0-100.0) L 06/26/18 05:45 Ur Tricyclics Screen POSITIVE (NEGATIVE) H 06/21/18 02:45 Ur Phencyclidine Scrn NEGATIVE (NEGATIVE) 06/21/18 02:45 Amphetamines Screen NEGATIVE (NEGATIVE) 06/21/18 02:45 U Methamphetamines Scrn NEGATIVE (NEGATIVE) 06/21/18 02:45 U Benzodiazepines Scrn POSITIVE (NEGATIVE) H 06/21/18 02:45 U Cocaine Metab Screen NEGATIVE (NEGATIVE) 06/21/18 02:45 U Cannabinoids Screen NEGATIVE (NEGATIVE) 06/21/18 02:45 Ethyl Alcohol < 10 mg/dL (0-10) 06/21/18 00:10 RPR NONREACTIVE (NONREACTIVE) 06/21/18 00:10 - Physical Exam Vitals and I&O: Vital Signs Temp 96.9 F 06/28/18 11:36 Pulse 91 06/28/18 11:36 Resp 19 06/28/18 11:36 BP 142/79 06/28/18 11:36 Pulse Ox 99 06/28/18 11:36 Intake & Output 06/27/18 06/28/18 06/28/18 18:59 06:59 18:59 Intake Total 1100.000 0 Balance 1100.000 0 Weight (lbs) 84.822 kg Intake: Intake, IV Amount 1100.000 D5-0.45NS 1,000 ml @ 100 1000.000 mls/hr IV .Q10H [facility] Rx#: [id number] Levofloxacin 500mg/100mL 100 500 mg In 100 ml @ 100 mls/hr IV Q24HR [facility] Rx#: [id number] Oral 0 Other: # Voids 3 # Bowel Movements 0 Weight Source Bedscale Active Medications: Current Medications Acetaminophen (Tylenol) 650 mg GT Q6HR PRN PRN Reason: Mild Pain or Fever >101 Stop: 08/20/18 08:20 Last Admin: 06/21/18 21:21 Dose: 650 mg Acetaminophen (Tylenol Extra Strength) 1,000 mg GT Q8H PRN PRN Reason: Pain (Moderate) Stop: 08/20/18 08:20 Last Admin: 06/25/18 21:40 Dose: 1,000 mg Albuterol Sulfate (Albuterol 2.5mg/3ml Neb Ud) 2.5 mg HHN BID PRN PRN Reason: Shortness of Breath Last Admin: 06/25/18 23:19 Dose: 2.5 mg Ascorbic Acid (Vitamin C) 500 mg GT DAILY [facility] Stop: 08/20/18 10:59 Last Admin: 06/28/18 08:16 Dose: Not Given Aspirin (Aspirin Chewable) 81 mg GT DAILY [facility] Stop: 08/20/18 08:59 Last Admin: 06/28/18 08:16 Dose: Not Given Bisacodyl (Dulcolax 10 Mg Supp) 10 mg RC DAILY PRN PRN Reason: Constipation Stop: 08/20/18 08:20 Divalproex Sodium (Depakote Dr) 250 mg PO BID [facility] Stop: 08/25/18 03:29 Last Admin: 06/28/18 08:16 Dose: Not Given Docusate Sodium (Colace) 100 mg GT DAILY [facility] Stop: 08/20/18 10:59 Last Admin: 06/28/18 08:16 Dose: Not Given Ferrous Sulfate (Iron) 450 mg GT DAILY [facility] Stop: 08/20/18 10:59 Last Admin: 06/28/18 08:16 Dose: Not Given Haloperidol Lactate (Haldol) 2 mg IM Q6HR PRN PRN Reason: Agitation Stop: 08/27/18 11:24 Heparin Sodium (Porcine) (Heparin) 5,000 units SUBQ Q12H [facility] Stop: 08/20/18 20:59 Last Admin: 06/28/18 08:55 Dose: Not Given Hydroxyzine HCl (Atarax) 10 mg GT TID PRN; Protocol PRN Reason: PRURITUS Stop: 08/20/18 08:20 Last Admin: 06/25/18 21:39 Dose: 10 mg Levofloxacin (Levaquin Pb) 500 mg in 100 mls @ 100 mls/hr IV Q24HR [facility] Stop: 08/23/18 14:59 Last Infusion: 06/27/18 17:31 Dose: Infused Dextrose/Sodium Chloride (D5-0.45ns) 1,000 mls @ 100 mls/hr IV .Q10H [facility] Stop: 08/25/18 18:21 Last Admin: 06/27/18 21:24 Dose: 100 mls/hr Insulin Aspart (Novolog Insulin Sliding Scale) 0 units SUBQ ACHS [facility]; Protocol Stop: 08/20/18 11:29 Last Admin: 06/28/18 12:00 Dose: Not Given Lactobacillus Rhamnosus (Culturelle 15b) 1 each GT DAILY [facility] Stop: 08/20/18 10:59 Last Admin: 06/28/18 08:17 Dose: Not Given Lactulose (Cephulac) 30 gm PO Q6HR [facility] Stop: 08/20/18 08:59 Last Admin: 06/28/18 12:01 Dose: Not Given Lorazepam (Ativan) 0.5 mg GT Q6H PRN; Protocol PRN Reason: Anxiety Stop: 08/20/18 08:20 Lorazepam (Ativan) 2 mg IVP Q6HR PRN; Protocol PRN Reason: Agitation Stop: 08/20/18 08:10 Last Admin: 06/28/18 09:39 Dose: 2 mg Lorazepam (Ativan) 1 mg PO TID [facility]; Protocol Stop: 08/22/18 08:59 Last Admin: 06/28/18 08:17 Dose: Not Given Magnesium Hydroxide (Milk Of Magnesia) 30 ml GT HS PRN PRN Reason: Constipation Stop: 08/20/18 08:20 Metronidazole (Flagyl) 500 mg PO BID [facility] Stop: 07/01/18 16:59 Last Admin: 06/28/18 08:18 Dose: Not Given Midodrine (Proamatine) 5 mg GT TID [facility] Stop: 08/20/18 08:59 Last Admin: 06/28/18 08:18 Dose: Not Given Miscellaneous (Vte Chemical Prophylaxis Screen/ Admission) 1 ea [facility] PRN PRN PRN Reason: PROTOCOL Stop: 08/20/18 12:59 Miscellaneous (Probiotic Screen) 1 ea MC PRN PRN PRN Reason: PROTOCOL Stop: 08/22/18 14:29 Morphine Sulfate (Morphine) 1 mg IVP Q4HR PRN PRN Reason: moderate pain Stop: 08/27/18 11:25 Morphine Sulfate (Morphine) 2 mg IVP Q4HR PRN PRN Reason: Severe Pain Stop: 08/27/18 11:25 Pantoprazole Sodium (Protonix) 40 mg GT QDAC [facility] Stop: 08/20/18 11:29 Last Admin: 06/28/18 06:48 Dose: Not Given Pioglitazone HCl (Actos) 15 mg GT DAILY [facility] Stop: 08/20/18 08:59 Last Admin: 06/28/18 08:19 Dose: Not Given Potassium Chloride (Klor-Con) 20 meq PO DAILY [facility] Stop: 08/20/18 08:59 Last Admin: 06/28/18 08:19 Dose: Not Given Quetiapine Fumarate (Seroquel Xr) 200 mg PO BID [facility]; Protocol Stop: 08/22/18 08:59 Last Admin: 06/28/18 08:19 Dose: Not Given Sodium Phosphate (Fleet Enema) 135 ml RC Q48H PRN PRN Reason: Constipation Stop: 08/20/18 08:20 Zolpidem Tartrate (Ambien) 10 mg GT HS [facility] Stop: 08/21/18 20:59 Last Admin: 06/27/18 20:56 Dose: Not Given General: no acute distress, well developed, well nourished HEENT: atraumatic, normocephalic, PERRLA, EOMI, moist mucous membrane Neck: supple, no thyromegaly, no lymphadenopathy Cardiovascular: S1S2, regular Lungs: clear to auscultation bilaterally, clear to percussion Abdomen: soft, no tender, no distended Extremities: no cyanosis, no clubbing, no edema Skin: intact - Procedures Procedures: Procedures Procedure Code Date ASSISTANCE WITH RESPIRATORY VENTILATION, <24 HRS, CPAP [id number] 06/01/18 INSPECTION OF UPPER INTESTINAL TRACT, ENDO [id number] 06/21/18 REMOVAL OF FEEDING DEVICE FROM STOMACH, EXTERNAL APPROACH [id number] 06/21/18 Infectious Disease Assmt/Plan - Problem List Patient Problems: All Active Problems Altered level of consciousness (Acute) R40.4 Diabetes (Acute) E11.9 Encephalopathy (Acute) G93.40 Iron deficiency (Acute) E61.1 Leukocytosis (Acute) D72.829 Osteoarthritis (Acute) M19.90 UTI (urinary tract infection) (Acute) - Assessment Assessment: 1. Leukocytosis. Improved. 2. Psychosis. 3. Seizure d/o. 4. Aspiration pneumonia ( patient failed swallow eval). - Plan Plan: Continue levaquin and flagyl. Nutritional Asmnt/Malnutr-PDOC - Dietary Evaluation Malnutrition Findings (Please click <Entered> for more info): Nutritional Asmnt/Malnutrition Start: 06/26/18 15: 31 Text: Status: Complete Freq: Protocol: Document 06/26/18 15:31 CONNOR (Rec: 06/26/18 15:46 CONNOR [email or web address]) Nutritional Asmnt/Malnutrition Patient General Information Nutritional Screening Moderate Risk Diagnosis ALOC, increased ammonia, leukocytosis Pertinent Medical Hx/Surgical Hx PEG/G Tube, ESRD, seizures, PUD/GERD, asthma/COPD, status post CVA and TIA, bipolar disorder, GERD, MRSA, gastritis, HTN, DM, status post cellulitis Subjective Information Pt sleeping at time of visit. Pt placed on NPO status after pt failed swallow eval today. Per nurse notes: pt was eating well and PO intake 75% prior to swallow eval. Pt had PEG tube and removed on 06/24. Per ST note, will reassess tommorrow 06/27. Current Diet Order/ Nutrition Support NPO Pertinent Medications novolog, culturelle, colace, iron, heparin, Vit C, dulcolax , protonix, klor-con, seroquel Xr, levaquin, Pertinent Labs 06/26: glucose 119, POC 109- 129 06/25: glucose 117, POC 108-130 Nutritional Hx/Data Height 1.68 m Height (Calculated Centimeters) 167.6 Current Weight (lbs) 86.183 kg Weight (Calculated Kilograms) 86.2 Weight (Calculated Grams) 72326.6 [place] Body Weight 142 lb Body Mass Index (BMI) 30.7 Weight Status Obese GI Symptoms GI Symptoms None Last BM 06/26 Difficult in: Swallowing Food Allergies No Skin Integrity/Comment: PEG removed, gastrostomy skin intact elizabeth 16 Current %PO Good (75-100%) Estimated Nutritional Goals BEE in Kcals: Adj wt of IBW Calories/Kcals/Kg 25-30 (based on adj wt 70 kg) Kcals Calculated [id number] Protein: Adj wt of IBW Protein g/k (based on adj wt 70 kg) Protein Calculated 70 g Fluid: ml [id number] (1 ml/kcal) Nutritional Problem 1. Problem Problem inadequate energy intake Etiology swallowing impairment Signs/Symptoms: NPO status after swallow eval and no alternate route of nutrition in place Malnutrition Alert Is there a minimum of two criteria No selected? Query Text:Check all the applicable criteria. A minimum of two criteria are recommended for diagnosis of either severe or non-severe malnutrition. Malnutrition Related to Morbid Obesity Malnutrition related to morbid obesity No Intervention/Recommendation Comments 1. Monitor NPO status. Consider alternate route of nutrition if pt unable to tolerate PO intake after swallow eval 06/27 2. Monitor wt, labs, and skin integrity 3. F/U as high risk in 2-3 days, 06/28-06/29 Expected Outcomes/Goals Expected Outcomes/Goals 1. Pt to meet at least 75% of nutritional needs from route of nutrition per ST 2. Wt stability, skin to remain intact, labs to approach WNL. Reviewed by Zoe Marsh RD
--- NOTE | 2018-06-28 13:11 | GI Progress Note ---
Subjective - Review of Systems Service Date: 06/28/18 Events since last encounter: Failed swallowing evaluation twice Subjective: confused Objective - Results Result Diagrams: 06/27/18 06:05 06/27/18 06:05 Recent Labs: Laboratory Last Values WBC 9.3 Th/cmm (4.8-10.8) 06/27/18 06:05 RBC 4.42 Mil/cmm (4.30-5.70) 06/27/18 06:05 Hgb 12.7 gm/dL (12-16) 06/27/18 06:05 Hct 38.3 % (41.0-60) L 06/27/18 06:05 MCV 86.5 fl (80-99) 06/27/18 06:05 MCH 28.7 pg (26.0-30.0) 06/27/18 06:05 MCHC Differential 33.2 pg (28.0-36.0) 06/27/18 06:05 RDW 15.0 % (11.5-20.0) 06/27/18 06:05 Plt Count 316 Th/cmm (150-400) 06/27/18 06:05 MPV 8.1 fl 06/27/18 06:05 Neutrophils % 54.6 % (40.0-80.0) 06/27/18 06:05 Band Neutrophils % 3 % (0-10) 06/26/18 05:45 Lymphocytes % 17.7 % (20.0-50.0) L 06/27/18 06:05 Monocytes % 7.8 % (2.0-10.0) 06/27/18 06:05 Eosinophils % 15.7 % (0.0-5.0) H 06/27/18 06:05 Basophils % 4.2 % (0.0-2.0) H 06/27/18 06:05 Neutrophils (Manual) 81 % (40-80) H 06/26/18 05:45 Lymphocytes 6 % (20-50) L 06/26/18 05:45 Monocytes 3 % (2-10) 06/26/18 05:45 Eosinophils 7 % (0-5) H 06/26/18 05:45 PT 9.9 SECONDS (9.5-11.5) 06/24/18 06:10 INR 0.95 (0.5-1.4) 06/24/18 06:10 PTT (Actin FS) 23.3 SECONDS (26.0-38.0) L 06/24/18 06:10 Sodium 136 mEq/L (136-145) 06/27/18 06:05 Potassium 4.1 mEq/L (3.5-5.1) 06/27/18 06:05 Chloride 105 mEq/L (98-107) 06/27/18 06:05 Carbon Dioxide 22.8 mEq/L (21.0-31.0) 06/27/18 06:05 Anion Gap 12.3 (7.0-16.0) 06/27/18 06:05 BUN 5 mg/dL (7-25) L 06/27/18 06:05 Creatinine 0.7 mg/dL (0.7-1.3) 06/27/18 06:05 Est GFR ( Amer) > 60.0 ml/min (>90) 06/27/18 06:05 Est GFR (Non-Af Amer) > 60.0 ml/min 06/27/18 06:05 BUN/Creatinine Ratio 7.1 06/27/18 06:05 Glucose 133 mg/dL (70-105) H 06/27/18 06:05 POC Glucose 131 MG/DL (70 - 105) H 06/28/18 11:45 Whole Bld Lactic Acid 0.89 mmol/L (0.60-1.99) 06/21/18 00:10 Calcium 8.8 mg/dL (8.6-10.3) 06/27/18 06:05 Total Bilirubin 0.2 mg/dL (0.3-1.0) L 06/23/18 06:09 AST 19 U/L (13-39) 06/23/18 06:09 ALT 13 U/L (7-52) 06/23/18 06:09 Alkaline Phosphatase 103 U/L (34-104) 06/23/18 06:09 Ammonia 50 umol/L (16-53) 06/26/18 12:18 Total Protein 6.1 gm/dL (6.0-8.3) 06/23/18 06:09 Albumin 3.4 gm/dL (4.2-5.5) L 06/23/18 06:09 Globulin 2.7 gm/dL 06/23/18 06:09 Albumin/Globulin Ratio 1.3 (1.0-1.8) 06/23/18 06:09 Triglycerides 83 mg/dL (<150) 06/21/18 00:10 Cholesterol 133 mg/dL (<200) 06/21/18 00:10 LDL Cholesterol Direct 78 mg/dL (75-193) 06/21/18 00:10 HDL Cholesterol 33 mg/dL (23-92) 06/21/18 00:10 TSH 0.51 uIU/ml (0.34-5.60) 06/21/18 00:10 Urine Source RANDOM 06/25/18 00:10 Urine Color YELLOW 06/25/18 00:10 Urine Clarity CLEAR (CLEAR) 06/25/18 00:10 Urine pH 6.0 (4.6 - 8.0) 06/25/18 00:10 Ur Specific [place] 1.020 (1.005-1.030) 06/25/18 00:10 Urine Protein NEGATIVE mg/dL (NEGATIVE) 06/25/18 00:10 Urine Glucose (UA) NEGATIVE mg/dL (NEGATIVE) 06/25/18 00:10 Urine Ketones 15 mg/dL (NEGATIVE) H 06/25/18 00:10 Urine Blood NEGATIVE (NEGATIVE) 06/25/18 00:10 Urine Nitrate NEGATIVE (NEGATIVE) 06/25/18 00:10 Urine Bilirubin NEGATIVE (NEGATIVE) 06/25/18 00:10 Urine Ictotest NEGATIVE (NEGATIVE) 06/21/18 02:45 Urine Urobilinogen 0.2 E.U./dL (0.2 - 1.0) 06/25/18 00:10 Ur Leukocyte Esterase NEGATIVE (NEGATIVE) 06/25/18 00:10 Urine RBC 0-2 /hpf (0-5) H 06/21/18 02:45 Urine WBC 0-2 /hpf (0-5) 06/21/18 02:45 Ur Epithelial Cells FEW /lpf (FEW) 06/21/18 02:45 Urine Bacteria OCCASIONAL /hpf (NONE SEEN) 06/21/18 02:45 Urine Mucus MODERATE /lpf (FEW) 06/21/18 02:45 Salicylates < 25.0 mg/L (30.0-100.0) L 06/21/18 00:10 Urine Opiates Screen NEGATIVE (NEGATIVE) 06/21/18 02:45 Urine Methadone Screen NEGATIVE (NEGATIVE) 06/21/18 02:45 Acetaminophen < 10.0 ug/mL (10.0-30.0) L 06/21/18 00:10 Ur Barbiturates Screen NEGATIVE (NEGATIVE) 06/21/18 02:45 Valproic Acid 20.3 ug/mL (50.0-100.0) L 06/26/18 05:45 Ur Tricyclics Screen POSITIVE (NEGATIVE) H 06/21/18 02:45 Ur Phencyclidine Scrn NEGATIVE (NEGATIVE) 06/21/18 02:45 Amphetamines Screen NEGATIVE (NEGATIVE) 06/21/18 02:45 U Methamphetamines Scrn NEGATIVE (NEGATIVE) 06/21/18 02:45 U Benzodiazepines Scrn POSITIVE (NEGATIVE) H 06/21/18 02:45 U Cocaine Metab Screen NEGATIVE (NEGATIVE) 06/21/18 02:45 U Cannabinoids Screen NEGATIVE (NEGATIVE) 06/21/18 02:45 Ethyl Alcohol < 10 mg/dL (0-10) 06/21/18 00:10 RPR NONREACTIVE (NONREACTIVE) 06/21/18 00:10 - Physical Exam Vitals and I&O: Vital Signs Temp 97.2 F 06/28/18 13:06 Pulse 92 06/28/18 13:06 Resp 18 06/28/18 13:06 BP 145/82 06/28/18 13:06 Pulse Ox 99 06/28/18 11:36 Intake & Output 06/27/18 06/28/18 06/28/18 18:59 06:59 18:59 Intake Total 1100.000 0 Balance 1100.000 0 Weight (lbs) 84.822 kg Intake: Intake, IV Amount 1100.000 D5-0.45NS 1,000 ml @ 100 1000.000 mls/hr IV .Q10H [facility] Rx#: [id number] Levofloxacin 500mg/100mL 100 500 mg In 100 ml @ 100 mls/hr IV Q24HR [facility] Rx#: [id number] Oral 0 Other: # Voids 3 # Bowel Movements 0 Weight Source Bedscale Active Medications: Current Medications Acetaminophen (Tylenol) 650 mg GT Q6HR PRN PRN Reason: Mild Pain or Fever >101 Stop: 08/20/18 08:20 Last Admin: 06/21/18 21:21 Dose: 650 mg Acetaminophen (Tylenol Extra Strength) 1,000 mg GT Q8H PRN PRN Reason: Pain (Moderate) Stop: 08/20/18 08:20 Last Admin: 06/25/18 21:40 Dose: 1,000 mg Albuterol Sulfate (Albuterol 2.5mg/3ml Neb Ud) 2.5 mg HHN BID PRN PRN Reason: Shortness of Breath Last Admin: 06/25/18 23:19 Dose: 2.5 mg Ascorbic Acid (Vitamin C) 500 mg GT DAILY [facility] Stop: 08/20/18 10:59 Last Admin: 06/28/18 08:16 Dose: Not Given Aspirin (Aspirin Chewable) 81 mg GT DAILY [facility] Stop: 08/20/18 08:59 Last Admin: 06/28/18 08:16 Dose: Not Given Bisacodyl (Dulcolax 10 Mg Supp) 10 mg RC DAILY PRN PRN Reason: Constipation Stop: 08/20/18 08:20 Divalproex Sodium (Depakote Dr) 250 mg PO BID [facility] Stop: 08/25/18 03:29 Last Admin: 06/28/18 08:16 Dose: Not Given Docusate Sodium (Colace) 100 mg GT DAILY [facility] Stop: 08/20/18 10:59 Last Admin: 06/28/18 08:16 Dose: Not Given Ferrous Sulfate (Iron) 450 mg GT DAILY [facility] Stop: 08/20/18 10:59 Last Admin: 06/28/18 08:16 Dose: Not Given Haloperidol Lactate (Haldol) 2 mg IM Q6HR PRN PRN Reason: Agitation Stop: 08/27/18 11:24 Heparin Sodium (Porcine) (Heparin) 5,000 units SUBQ Q12H [facility] Stop: 08/20/18 20:59 Last Admin: 06/28/18 08:55 Dose: Not Given Hydroxyzine HCl (Atarax) 10 mg GT TID PRN; Protocol PRN Reason: PRURITUS Stop: 08/20/18 08:20 Last Admin: 06/25/18 21:39 Dose: 10 mg Levofloxacin (Levaquin Pb) 500 mg in 100 mls @ 100 mls/hr IV Q24HR [facility] Stop: 08/23/18 14:59 Last Infusion: 06/27/18 17:31 Dose: Infused Dextrose/Sodium Chloride (D5-0.45ns) 1,000 mls @ 100 mls/hr IV .Q10H [facility] Stop: 08/25/18 18:21 Last Admin: 06/27/18 21:24 Dose: 100 mls/hr Insulin Aspart (Novolog Insulin Sliding Scale) 0 units SUBQ ACHS [facility]; Protocol Stop: 08/20/18 11:29 Last Admin: 06/28/18 12:00 Dose: Not Given Lactobacillus Rhamnosus (Culturelle 15b) 1 each GT DAILY [facility] Stop: 08/20/18 10:59 Last Admin: 06/28/18 08:17 Dose: Not Given Lactulose (Cephulac) 30 gm PO Q6HR [facility] Stop: 08/20/18 08:59 Last Admin: 06/28/18 12:01 Dose: Not Given Lorazepam (Ativan) 0.5 mg GT Q6H PRN; Protocol PRN Reason: Anxiety Stop: 08/20/18 08:20 Lorazepam (Ativan) 2 mg IVP Q6HR PRN; Protocol PRN Reason: Agitation Stop: 08/20/18 08:10 Last Admin: 06/28/18 09:39 Dose: 2 mg Lorazepam (Ativan) 1 mg PO TID [facility]; Protocol Stop: 08/22/18 08:59 Last Admin: 06/28/18 08:17 Dose: Not Given Magnesium Hydroxide (Milk Of Magnesia) 30 ml GT HS PRN PRN Reason: Constipation Stop: 08/20/18 08:20 Metronidazole (Flagyl) 500 mg PO BID [facility] Stop: 07/01/18 16:59 Last Admin: 06/28/18 08:18 Dose: Not Given Midodrine (Proamatine) 5 mg GT TID [facility] Stop: 08/20/18 08:59 Last Admin: 06/28/18 08:18 Dose: Not Given Miscellaneous (Vte Chemical Prophylaxis Screen/ Admission) 1 ea [facility] PRN PRN PRN Reason: PROTOCOL Stop: 08/20/18 12:59 Miscellaneous (Probiotic Screen) 1 ea [facility] PRN PRN PRN Reason: PROTOCOL Stop: 08/22/18 14:29 Morphine Sulfate (Morphine) 1 mg IVP Q4HR PRN PRN Reason: moderate pain Stop: 08/27/18 11:25 Morphine Sulfate (Morphine) 2 mg IVP Q4HR PRN PRN Reason: Severe Pain Stop: 08/27/18 11:25 Pantoprazole Sodium (Protonix) 40 mg GT QDAC [facility] Stop: 08/20/18 11:29 Last Admin: 06/28/18 06:48 Dose: Not Given Pioglitazone HCl (Actos) 15 mg GT DAILY [facility] Stop: 08/20/18 08:59 Last Admin: 06/28/18 08:19 Dose: Not Given Potassium Chloride (Klor-Con) 20 meq PO DAILY [facility] Stop: 08/20/18 08:59 Last Admin: 06/28/18 08:19 Dose: Not Given Quetiapine Fumarate (Seroquel Xr) 200 mg PO BID [facility]; Protocol Stop: 08/22/18 08:59 Last Admin: 06/28/18 08:19 Dose: Not Given Sodium Phosphate (Fleet Enema) 135 ml RC Q48H PRN PRN Reason: Constipation Stop: 08/20/18 08:20 Zolpidem Tartrate (Ambien) 10 mg GT HS [facility] Stop: 08/21/18 20:59 Last Admin: 06/27/18 20:56 Dose: Not Given General: No acute distress, Other (confused) Cardiovascular: Regular rate, Normal S1, Normal S2 Lungs: Clear to auscultation, Normal air movement Abdomen: Bowel sounds (normal), Soft, Other (Site of G tube is clean) - Procedures Procedures: Procedures Procedure Code Date ASSISTANCE WITH RESPIRATORY VENTILATION, <24 HRS, CPAP [id number] 06/01/18 INSPECTION OF UPPER INTESTINAL TRACT, ENDO [id number] 06/21/18 REMOVAL OF FEEDING DEVICE FROM STOMACH, EXTERNAL APPROACH [id number] 06/21/18 Assessment/Plan - Problem List Patient Problems: All Active Problems Altered level of consciousness (Acute) R40.4 Diabetes (Acute) E11.9 Encephalopathy (Acute) G93.40 Iron deficiency (Acute) E61.1 Leukocytosis (Acute) D72.829 Osteoarthritis (Acute) M19.90 UTI (urinary tract infection) (Acute) - Assessment Assessment: Dysphagia - Plan Plan: Dysphagia Has Improved and G tube was removed Now aspirating and failed swallowing eval PEG Sunday if not improving
--- NOTE | 2018-06-28 13:51 | Internal Medicine Prog Note ---
Internal Medicine Subjective - Subjective Service Date: 06/28/18 Patient is:: awake, verbal Per staff patient has:: tolerating meds Internal Medicine Objective - Results Result Diagrams: 06/27/18 06:05 06/27/18 06:05 Recent Labs: Laboratory Last Values WBC 9.3 Th/cmm (4.8-10.8) 06/27/18 06:05 RBC 4.42 Mil/cmm (4.30-5.70) 06/27/18 06:05 Hgb 12.7 gm/dL (12-16) 06/27/18 06:05 Hct 38.3 % (41.0-60) L 06/27/18 06:05 MCV 86.5 fl (80-99) 06/27/18 06:05 MCH 28.7 pg (26.0-30.0) 06/27/18 06:05 MCHC Differential 33.2 pg (28.0-36.0) 06/27/18 06:05 RDW 15.0 % (11.5-20.0) 06/27/18 06:05 Plt Count 316 Th/cmm (150-400) 06/27/18 06:05 MPV 8.1 fl 06/27/18 06:05 Neutrophils % 54.6 % (40.0-80.0) 06/27/18 06:05 Band Neutrophils % 3 % (0-10) 06/26/18 05:45 Lymphocytes % 17.7 % (20.0-50.0) L 06/27/18 06:05 Monocytes % 7.8 % (2.0-10.0) 06/27/18 06:05 Eosinophils % 15.7 % (0.0-5.0) H 06/27/18 06:05 Basophils % 4.2 % (0.0-2.0) H 06/27/18 06:05 Neutrophils (Manual) 81 % (40-80) H 06/26/18 05:45 Lymphocytes 6 % (20-50) L 06/26/18 05:45 Monocytes 3 % (2-10) 06/26/18 05:45 Eosinophils 7 % (0-5) H 06/26/18 05:45 PT 9.9 SECONDS (9.5-11.5) 06/24/18 06:10 INR 0.95 (0.5-1.4) 06/24/18 06:10 PTT (Actin FS) 23.3 SECONDS (26.0-38.0) L 06/24/18 06:10 Sodium 136 mEq/L (136-145) 06/27/18 06:05 Potassium 4.1 mEq/L (3.5-5.1) 06/27/18 06:05 Chloride 105 mEq/L (98-107) 06/27/18 06:05 Carbon Dioxide 22.8 mEq/L (21.0-31.0) 06/27/18 06:05 Anion Gap 12.3 (7.0-16.0) 06/27/18 06:05 BUN 5 mg/dL (7-25) L 06/27/18 06:05 Creatinine 0.7 mg/dL (0.7-1.3) 06/27/18 06:05 Est GFR ( Amer) > 60.0 ml/min (>90) 06/27/18 06:05 Est GFR (Non-Af Amer) > 60.0 ml/min 06/27/18 06:05 BUN/Creatinine Ratio 7.1 06/27/18 06:05 Glucose 133 mg/dL (70-105) H 06/27/18 06:05 POC Glucose 131 MG/DL (70 - 105) H 06/28/18 11:45 Whole Bld Lactic Acid 0.89 mmol/L (0.60-1.99) 06/21/18 00:10 Calcium 8.8 mg/dL (8.6-10.3) 06/27/18 06:05 Total Bilirubin 0.2 mg/dL (0.3-1.0) L 06/23/18 06:09 AST 19 U/L (13-39) 06/23/18 06:09 ALT 13 U/L (7-52) 06/23/18 06:09 Alkaline Phosphatase 103 U/L (34-104) 06/23/18 06:09 Ammonia 50 umol/L (16-53) 06/26/18 12:18 Total Protein 6.1 gm/dL (6.0-8.3) 06/23/18 06:09 Albumin 3.4 gm/dL (4.2-5.5) L 06/23/18 06:09 Globulin 2.7 gm/dL 06/23/18 06:09 Albumin/Globulin Ratio 1.3 (1.0-1.8) 06/23/18 06:09 Triglycerides 83 mg/dL (<150) 06/21/18 00:10 Cholesterol 133 mg/dL (<200) 06/21/18 00:10 LDL Cholesterol Direct 78 mg/dL (75-193) 06/21/18 00:10 HDL Cholesterol 33 mg/dL (23-92) 06/21/18 00:10 TSH 0.51 uIU/ml (0.34-5.60) 06/21/18 00:10 Urine Source RANDOM 06/25/18 00:10 Urine Color YELLOW 06/25/18 00:10 Urine Clarity CLEAR (CLEAR) 06/25/18 00:10 Urine pH 6.0 (4.6 - 8.0) 06/25/18 00:10 Ur Specific [place] 1.020 (1.005-1.030) 06/25/18 00:10 Urine Protein NEGATIVE mg/dL (NEGATIVE) 06/25/18 00:10 Urine Glucose (UA) NEGATIVE mg/dL (NEGATIVE) 06/25/18 00:10 Urine Ketones 15 mg/dL (NEGATIVE) H 06/25/18 00:10 Urine Blood NEGATIVE (NEGATIVE) 06/25/18 00:10 Urine Nitrate NEGATIVE (NEGATIVE) 06/25/18 00:10 Urine Bilirubin NEGATIVE (NEGATIVE) 06/25/18 00:10 Urine Ictotest NEGATIVE (NEGATIVE) 06/21/18 02:45 Urine Urobilinogen 0.2 E.U./dL (0.2 - 1.0) 06/25/18 00:10 Ur Leukocyte Esterase NEGATIVE (NEGATIVE) 06/25/18 00:10 Urine RBC 0-2 /hpf (0-5) H 06/21/18 02:45 Urine WBC 0-2 /hpf (0-5) 06/21/18 02:45 Ur Epithelial Cells FEW /lpf (FEW) 06/21/18 02:45 Urine Bacteria OCCASIONAL /hpf (NONE SEEN) 06/21/18 02:45 Urine Mucus MODERATE /lpf (FEW) 06/21/18 02:45 Salicylates < 25.0 mg/L (30.0-100.0) L 06/21/18 00:10 Urine Opiates Screen NEGATIVE (NEGATIVE) 06/21/18 02:45 Urine Methadone Screen NEGATIVE (NEGATIVE) 06/21/18 02:45 Acetaminophen < 10.0 ug/mL (10.0-30.0) L 06/21/18 00:10 Ur Barbiturates Screen NEGATIVE (NEGATIVE) 06/21/18 02:45 Valproic Acid 20.3 ug/mL (50.0-100.0) L 06/26/18 05:45 Ur Tricyclics Screen POSITIVE (NEGATIVE) H 06/21/18 02:45 Ur Phencyclidine Scrn NEGATIVE (NEGATIVE) 06/21/18 02:45 Amphetamines Screen NEGATIVE (NEGATIVE) 06/21/18 02:45 U Methamphetamines Scrn NEGATIVE (NEGATIVE) 06/21/18 02:45 U Benzodiazepines Scrn POSITIVE (NEGATIVE) H 06/21/18 02:45 U Cocaine Metab Screen NEGATIVE (NEGATIVE) 06/21/18 02:45 U Cannabinoids Screen NEGATIVE (NEGATIVE) 06/21/18 02:45 Ethyl Alcohol < 10 mg/dL (0-10) 06/21/18 00:10 RPR NONREACTIVE (NONREACTIVE) 06/21/18 00:10 - Physical Exam Vitals and I&O: Vital Signs Temp 97.2 F 06/28/18 13:06 Pulse 92 06/28/18 13:06 Resp 18 06/28/18 13:06 BP 145/82 06/28/18 13:06 Pulse Ox 99 06/28/18 11:36 Intake & Output 06/27/18 06/28/18 06/28/18 18:59 06:59 18:59 Intake Total 1100.000 0 Balance 1100.000 0 Weight (lbs) 187 lb Intake: Intake, IV Amount 1100.000 D5-0.45NS 1,000 ml @ 100 1000.000 mls/hr IV .Q10H [facility] Rx#: [id number] Levofloxacin 500mg/100mL 100 500 mg In 100 ml @ 100 mls/hr IV Q24HR [facility] Rx#: [id number] Oral 0 Other: # Voids 3 # Bowel Movements 0 Weight Source Bedscale Active Medications: Current Medications Acetaminophen (Tylenol) 650 mg GT Q6HR PRN PRN Reason: Mild Pain or Fever >101 Stop: 08/20/18 08:20 Last Admin: 06/21/18 21:21 Dose: 650 mg Acetaminophen (Tylenol Extra Strength) 1,000 mg GT Q8H PRN PRN Reason: Pain (Moderate) Stop: 08/20/18 08:20 Last Admin: 06/25/18 21:40 Dose: 1,000 mg Albuterol Sulfate (Albuterol 2.5mg/3ml Neb Ud) 2.5 mg HHN BID PRN PRN Reason: Shortness of Breath Last Admin: 06/25/18 23:19 Dose: 2.5 mg Ascorbic Acid (Vitamin C) 500 mg GT DAILY [facility] Stop: 08/20/18 10:59 Last Admin: 06/28/18 08:16 Dose: Not Given Bisacodyl (Dulcolax 10 Mg Supp) 10 mg RC DAILY PRN PRN Reason: Constipation Stop: 08/20/18 08:20 Divalproex Sodium (Depakote Dr) 250 mg PO BID [facility] Stop: 08/25/18 03:29 Last Admin: 06/28/18 08:16 Dose: Not Given Docusate Sodium (Colace) 100 mg GT DAILY [facility] Stop: 08/20/18 10:59 Last Admin: 06/28/18 08:16 Dose: Not Given Ferrous Sulfate (Iron) 450 mg GT DAILY [facility] Stop: 08/20/18 10:59 Last Admin: 06/28/18 08:16 Dose: Not Given Haloperidol Lactate (Haldol) 2 mg IM Q6HR PRN PRN Reason: Agitation Stop: 08/27/18 11:24 Heparin Sodium (Porcine) (Heparin) 5,000 units SUBQ Q12H [facility] Stop: 08/20/18 20:59 Last Admin: 06/28/18 08:55 Dose: Not Given Hydroxyzine HCl (Atarax) 10 mg GT TID PRN; Protocol PRN Reason: PRURITUS Stop: 08/20/18 08:20 Last Admin: 06/25/18 21:39 Dose: 10 mg Levofloxacin (Levaquin Pb) 500 mg in 100 mls @ 100 mls/hr IV Q24HR [facility] Stop: 08/23/18 14:59 Last Infusion: 06/27/18 17:31 Dose: Infused Dextrose/Sodium Chloride (D5-0.45ns) 1,000 mls @ 100 mls/hr IV .Q10H [facility] Stop: 08/25/18 18:21 Last Admin: 06/27/18 21:24 Dose: 100 mls/hr Insulin Aspart (Novolog Insulin Sliding Scale) 0 units SUBQ ACHS [facility]; Protocol Stop: 08/20/18 11:29 Last Admin: 06/28/18 12:00 Dose: Not Given Lactobacillus Rhamnosus (Culturelle 15b) 1 each GT DAILY [facility] Stop: 08/20/18 10:59 Last Admin: 06/28/18 08:17 Dose: Not Given Lactulose (Cephulac) 30 gm PO Q6HR [facility] Stop: 08/20/18 08:59 Last Admin: 06/28/18 12:01 Dose: Not Given Lorazepam (Ativan) 0.5 mg GT Q6H PRN; Protocol PRN Reason: Anxiety Stop: 08/20/18 08:20 Lorazepam (Ativan) 2 mg IVP Q6HR PRN; Protocol PRN Reason: Agitation Stop: 08/20/18 08:10 Last Admin: 06/28/18 09:39 Dose: 2 mg Lorazepam (Ativan) 1 mg PO TID [facility]; Protocol Stop: 08/22/18 08:59 Last Admin: 06/28/18 13:44 Dose: Not Given Magnesium Hydroxide (Milk Of Magnesia) 30 ml GT HS PRN PRN Reason: Constipation Stop: 08/20/18 08:20 Metronidazole (Flagyl) 500 mg PO BID [facility] Stop: 07/01/18 16:59 Last Admin: 06/28/18 08:18 Dose: Not Given Midodrine (Proamatine) 5 mg GT TID [facility] Stop: 08/20/18 08:59 Last Admin: 06/28/18 13:45 Dose: Not Given Miscellaneous (Vte Chemical Prophylaxis Screen/ Admission) 1 ea [facility] PRN PRN PRN Reason: PROTOCOL Stop: 08/20/18 12:59 Miscellaneous (Probiotic Screen) 1 ea MC PRN PRN PRN Reason: PROTOCOL Stop: 08/22/18 14:29 Morphine Sulfate (Morphine) 1 mg IVP Q4HR PRN PRN Reason: moderate pain Stop: 08/27/18 11:25 Morphine Sulfate (Morphine) 2 mg IVP Q4HR PRN PRN Reason: Severe Pain Stop: 08/27/18 11:25 Pantoprazole Sodium (Protonix) 40 mg GT QDAC [facility] Stop: 08/20/18 11:29 Last Admin: 06/28/18 06:48 Dose: Not Given Pioglitazone HCl (Actos) 15 mg GT DAILY [facility] Stop: 08/20/18 08:59 Last Admin: 06/28/18 08:19 Dose: Not Given Potassium Chloride (Klor-Con) 20 meq PO DAILY [facility] Stop: 08/20/18 08:59 Last Admin: 06/28/18 08:19 Dose: Not Given Quetiapine Fumarate (Seroquel Xr) 200 mg PO BID [facility]; Protocol Stop: 08/22/18 08:59 Last Admin: 06/28/18 08:19 Dose: Not Given Sodium Phosphate (Fleet Enema) 135 ml RC Q48H PRN PRN Reason: Constipation Stop: 08/20/18 08:20 Zolpidem Tartrate (Ambien) 10 mg GT HS [facility] Stop: 08/21/18 20:59 Last Admin: 06/27/18 20:56 Dose: Not Given General: alert HEENT: NC/AT, PERRLA Neck: Supple Lungs: CTAB Cardiovascular: RRR, Normal S1, Normal S2, without murmur Abdomen: soft, non-tender, non-distended Neurological: alert - Procedures Procedures: Procedures Procedure Code Date ASSISTANCE WITH RESPIRATORY VENTILATION, <24 HRS, CPAP [id number] 06/01/18 INSPECTION OF UPPER INTESTINAL TRACT, ENDO [id number] 06/21/18 REMOVAL OF FEEDING DEVICE FROM STOMACH, EXTERNAL APPROACH [id number] 06/21/18 Internal Medicine Assmt/Plan - Assessment Assessment: aloc acute uti leukocytosis HTN DM copd esrd seizures - Plan Plan: continue ivabx seizure precautions follow up labs in am continue the rest of the orders Nutritional Asmnt/Malnutr-PDOC - Dietary Evaluation Malnutrition Findings (Please click <Entered> for more info): Nutritional Asmnt/Malnutrition Start: 06/26/18 15: 31 Text: Status: Complete Freq: Protocol: Document 06/26/18 15:31 CONNOR (Rec: 06/26/18 15:46 CONNOR LEONE) Nutritional Asmnt/Malnutrition Patient General Information Nutritional Screening Moderate Risk Diagnosis ALOC, increased ammonia, leukocytosis Pertinent Medical Hx/Surgical Hx PEG/G Tube, ESRD, seizures, PUD/GERD, asthma/COPD, status post CVA and TIA, bipolar disorder, GERD, MRSA, gastritis, HTN, DM, status post cellulitis Subjective Information Pt sleeping at time of visit. Pt placed on NPO status after pt failed swallow eval today. Per nurse notes: pt was eating well and PO intake 75% prior to swallow eval. Pt had PEG tube and removed on 06/24. Per ST note, will reassess tommorrow 06/27. Current Diet Order/ Nutrition Support NPO Pertinent Medications novolog, culturelle, colace, iron, heparin, Vit C, dulcolax , protonix, klor-con, seroquel Xr, levaquin, Pertinent Labs 06/26: glucose 119, POC 109- 129 06/25: glucose 117, POC 108-130 Nutritional Hx/Data Height 5 ft 6 in Height (Calculated Centimeters) 167.6 Current Weight (lbs) 190 lb Weight (Calculated Kilograms) 86.2 Weight (Calculated Grams) 46092.6 [place] Body Weight 142 lb Body Mass Index (BMI) 30.7 Weight Status Obese GI Symptoms GI Symptoms None Last BM 06/26 Difficult in: Swallowing Food Allergies No Skin Integrity/Comment: PEG removed, gastrostomy skin intact elizabeth 16 Current %PO Good (75-100%) Estimated Nutritional Goals BEE in Kcals: Adj wt of IBW Calories/Kcals/Kg 25-30 (based on adj wt 70 kg) Kcals Calculated 8702-0328 Protein: Adj wt of IBW Protein g/k (based on adj wt 70 kg) Protein Calculated 70 g Fluid: ml 5092-6003 (1 ml/kcal) Nutritional Problem 1. Problem Problem inadequate energy intake Etiology swallowing impairment Signs/Symptoms: NPO status after swallow eval and no alternate route of nutrition in place Malnutrition Alert Is there a minimum of two criteria No selected? Query Text:Check all the applicable criteria. A minimum of two criteria are recommended for diagnosis of either severe or non-severe malnutrition. Malnutrition Related to Morbid Obesity Malnutrition related to morbid obesity No Intervention/Recommendation Comments 1. Monitor NPO status. Consider alternate route of nutrition if pt unable to tolerate PO intake after swallow eval 06/27 2. Monitor wt, labs, and skin integrity 3. F/U as high risk in 2-3 days, 06/28-06/29 Expected Outcomes/Goals Expected Outcomes/Goals 1. Pt to meet at least 75% of nutritional needs from route of nutrition per ST 2. Wt stability, skin to remain intact, labs to approach WNL. Reviewed by Zoe Marsh RD
[2018-06-28] MEDS: D5-0.45NS 1,000 ML IV SCH (14:07)
[2018-06-28] MEDS: Levofloxacin 500mg/100mL 500 MG/100 ML BAG IV SCH (14:07)
[2018-06-28] MEDS: Morphine Sulfate 2 mg/mL 1mL Syr IVP PRN (15:14)
[2018-06-29] MEDS: Lactulose 10 Gm/15 mL 30mL UDC PO SCH ×3 (06:12→18:31)
[2018-06-29 07:31] LABS: INR 0.99 (0.5-1.4); PROTHROMBIN TIME (TEST) 10.3 SECONDS (9.5-11.5)
[2018-06-29] MEDS: INSULIN ASPART SLIDING SCALE 100 UNITS/ML UNIT SUBQ SCH ×4 (07:51→21:30)
[2018-06-29] MEDS: D5-0.45NS 1,000 ML IV SCH (08:16)
--- NOTE | 2018-06-29 08:34 | GI Progress Note ---
Subjective - Review of Systems Subjective: NO EVENTS Objective - Results Result Diagrams: 06/27/18 06:05 06/27/18 06:05 Recent Labs: Laboratory Last Values WBC 9.3 Th/cmm (4.8-10.8) 06/27/18 06:05 RBC 4.42 Mil/cmm (4.30-5.70) 06/27/18 06:05 Hgb 12.7 gm/dL (12-16) 06/27/18 06:05 Hct 38.3 % (41.0-60) L 06/27/18 06:05 MCV 86.5 fl (80-99) 06/27/18 06:05 MCH 28.7 pg (26.0-30.0) 06/27/18 06:05 MCHC Differential 33.2 pg (28.0-36.0) 06/27/18 06:05 RDW 15.0 % (11.5-20.0) 06/27/18 06:05 Plt Count 316 Th/cmm (150-400) 06/27/18 06:05 MPV 8.1 fl 06/27/18 06:05 Neutrophils % 54.6 % (40.0-80.0) 06/27/18 06:05 Band Neutrophils % 3 % (0-10) 06/26/18 05:45 Lymphocytes % 17.7 % (20.0-50.0) L 06/27/18 06:05 Monocytes % 7.8 % (2.0-10.0) 06/27/18 06:05 Eosinophils % 15.7 % (0.0-5.0) H 06/27/18 06:05 Basophils % 4.2 % (0.0-2.0) H 06/27/18 06:05 Neutrophils (Manual) 81 % (40-80) H 06/26/18 05:45 Lymphocytes 6 % (20-50) L 06/26/18 05:45 Monocytes 3 % (2-10) 06/26/18 05:45 Eosinophils 7 % (0-5) H 06/26/18 05:45 PT 10.3 SECONDS (9.5-11.5) 06/29/18 06:39 INR 0.99 (0.5-1.4) 06/29/18 06:39 PTT (Actin FS) 23.3 SECONDS (26.0-38.0) L 06/24/18 06:10 Sodium 136 mEq/L (136-145) 06/27/18 06:05 Potassium 4.1 mEq/L (3.5-5.1) 06/27/18 06:05 Chloride 105 mEq/L (98-107) 06/27/18 06:05 Carbon Dioxide 22.8 mEq/L (21.0-31.0) 06/27/18 06:05 Anion Gap 12.3 (7.0-16.0) 06/27/18 06:05 BUN 5 mg/dL (7-25) L 06/27/18 06:05 Creatinine 0.7 mg/dL (0.7-1.3) 06/27/18 06:05 Est GFR ( Amer) > 60.0 ml/min (>90) 06/27/18 06:05 Est GFR (Non-Af Amer) > 60.0 ml/min 06/27/18 06:05 BUN/Creatinine Ratio 7.1 06/27/18 06:05 Glucose 133 mg/dL (70-105) H 06/27/18 06:05 POC Glucose 140 MG/DL (70 - 105) H 06/29/18 06:25 Whole Bld Lactic Acid 0.89 mmol/L (0.60-1.99) 06/21/18 00:10 Calcium 8.8 mg/dL (8.6-10.3) 06/27/18 06:05 Total Bilirubin 0.2 mg/dL (0.3-1.0) L 06/23/18 06:09 AST 19 U/L (13-39) 06/23/18 06:09 ALT 13 U/L (7-52) 06/23/18 06:09 Alkaline Phosphatase 103 U/L (34-104) 06/23/18 06:09 Ammonia 50 umol/L (16-53) 06/26/18 12:18 Total Protein 6.1 gm/dL (6.0-8.3) 06/23/18 06:09 Albumin 3.4 gm/dL (4.2-5.5) L 06/23/18 06:09 Globulin 2.7 gm/dL 06/23/18 06:09 Albumin/Globulin Ratio 1.3 (1.0-1.8) 06/23/18 06:09 Triglycerides 83 mg/dL (<150) 06/21/18 00:10 Cholesterol 133 mg/dL (<200) 06/21/18 00:10 LDL Cholesterol Direct 78 mg/dL (75-193) 06/21/18 00:10 HDL Cholesterol 33 mg/dL (23-92) 06/21/18 00:10 TSH 0.51 uIU/ml (0.34-5.60) 06/21/18 00:10 Urine Source RANDOM 06/25/18 00:10 Urine Color YELLOW 06/25/18 00:10 Urine Clarity CLEAR (CLEAR) 06/25/18 00:10 Urine pH 6.0 (4.6 - 8.0) 06/25/18 00:10 Ur Specific [place] 1.020 (1.005-1.030) 06/25/18 00:10 Urine Protein NEGATIVE mg/dL (NEGATIVE) 06/25/18 00:10 Urine Glucose (UA) NEGATIVE mg/dL (NEGATIVE) 06/25/18 00:10 Urine Ketones 15 mg/dL (NEGATIVE) H 06/25/18 00:10 Urine Blood NEGATIVE (NEGATIVE) 06/25/18 00:10 Urine Nitrate NEGATIVE (NEGATIVE) 06/25/18 00:10 Urine Bilirubin NEGATIVE (NEGATIVE) 06/25/18 00:10 Urine Ictotest NEGATIVE (NEGATIVE) 06/21/18 02:45 Urine Urobilinogen 0.2 E.U./dL (0.2 - 1.0) 06/25/18 00:10 Ur Leukocyte Esterase NEGATIVE (NEGATIVE) 06/25/18 00:10 Urine RBC 0-2 /hpf (0-5) H 06/21/18 02:45 Urine WBC 0-2 /hpf (0-5) 06/21/18 02:45 Ur Epithelial Cells FEW /lpf (FEW) 06/21/18 02:45 Urine Bacteria OCCASIONAL /hpf (NONE SEEN) 06/21/18 02:45 Urine Mucus MODERATE /lpf (FEW) 06/21/18 02:45 Salicylates < 25.0 mg/L (30.0-100.0) L 06/21/18 00:10 Urine Opiates Screen NEGATIVE (NEGATIVE) 06/21/18 02:45 Urine Methadone Screen NEGATIVE (NEGATIVE) 06/21/18 02:45 Acetaminophen < 10.0 ug/mL (10.0-30.0) L 06/21/18 00:10 Ur Barbiturates Screen NEGATIVE (NEGATIVE) 06/21/18 02:45 Valproic Acid 20.3 ug/mL (50.0-100.0) L 06/26/18 05:45 Ur Tricyclics Screen POSITIVE (NEGATIVE) H 06/21/18 02:45 Ur Phencyclidine Scrn NEGATIVE (NEGATIVE) 06/21/18 02:45 Amphetamines Screen NEGATIVE (NEGATIVE) 06/21/18 02:45 U Methamphetamines Scrn NEGATIVE (NEGATIVE) 06/21/18 02:45 U Benzodiazepines Scrn POSITIVE (NEGATIVE) H 06/21/18 02:45 U Cocaine Metab Screen NEGATIVE (NEGATIVE) 06/21/18 02:45 U Cannabinoids Screen NEGATIVE (NEGATIVE) 06/21/18 02:45 Ethyl Alcohol < 10 mg/dL (0-10) 06/21/18 00:10 RPR NONREACTIVE (NONREACTIVE) 06/21/18 00:10 - Physical Exam Vitals and I&O: Vital Signs Temp 99.1 F 06/29/18 07:51 Pulse 98 06/29/18 07:51 Resp 18 06/29/18 08:14 BP 146/98 06/29/18 07:51 Pulse Ox 96 06/29/18 07:51 Intake & Output 06/28/18 06/29/18 06/29/18 18:59 06:59 18:59 Intake Total 1000 1000 Balance 1000 1000 Weight (lbs) 99.79 kg Intake: Intake, IV Amount 1000 1000 D5-0.45NS 1,000 ml @ 100 1000 1000 mls/hr IV .Q10H [facility] Rx#: [id number] Oral 0 Other: Weight Source Estimated Active Medications: Current Medications Acetaminophen (Tylenol) 650 mg GT Q6HR PRN PRN Reason: Mild Pain or Fever >101 Stop: 08/20/18 08:20 Last Admin: 06/21/18 21:21 Dose: 650 mg Acetaminophen (Tylenol Extra Strength) 1,000 mg GT Q8H PRN PRN Reason: Pain (Moderate) Stop: 08/20/18 08:20 Last Admin: 06/25/18 21:40 Dose: 1,000 mg Albuterol Sulfate (Albuterol 2.5mg/3ml Neb Ud) 2.5 mg HHN BID PRN PRN Reason: Shortness of Breath Last Admin: 06/25/18 23:19 Dose: 2.5 mg Ascorbic Acid (Vitamin C) [address] [facility] Stop: 08/20/18 10:59 Last Admin: 06/28/18 08:16 Dose: Not Given Bisacodyl (Dulcolax 10 Mg Supp) 10 mg RC DAILY PRN PRN Reason: Constipation Stop: 08/20/18 08:20 Divalproex Sodium (Depakote Dr) [address] [facility] Stop: 08/25/18 03:29 Last Admin: 06/28/18 17:00 Dose: Not Given Docusate Sodium (Colace) [address] [facility] Stop: 08/20/18 10:59 Last Admin: 06/28/18 08:16 Dose: Not Given Ferrous Sulfate (Iron) 450 mg GT DAILY [facility] Stop: 08/20/18 10:59 Last Admin: 06/28/18 08:16 Dose: Not Given Haloperidol Lactate (Haldol) 2 mg IM Q6HR PRN PRN Reason: Agitation Stop: 08/27/18 11:24 Heparin Sodium (Porcine) (Heparin) 5,[address] [facility] Stop: 08/20/18 20:59 Last Admin: 06/29/18 08:13 Dose: 5,000 units Hydroxyzine HCl (Atarax) 10 mg GT TID PRN; Protocol PRN Reason: PRURITUS Stop: 08/20/18 08:20 Last Admin: 06/25/18 21:39 Dose: 10 mg Levofloxacin (Levaquin Pb) 500 mg in 100 mls @ 100 mls/hr IV Q24HR [facility] Stop: 08/23/18 14:59 Last Admin: 06/28/18 14:07 Dose: 100 mls/hr Dextrose/Sodium Chloride (D5-0.45ns) 1,000 mls @ 100 mls/hr IV .Q10H [facility] Stop: 08/25/18 18:21 Last Admin: 06/29/18 08:16 Dose: 100 mls/hr Insulin Aspart (Novolog Insulin Sliding Scale) 0 units SUBQ ACHS [facility]; Protocol Stop: 08/20/18 11:29 Last Admin: 06/29/18 07:51 Dose: Not Given Lactobacillus Rhamnosus (Culturelle 15b) 1 each GT DAILY [facility] Stop: 08/20/18 10:59 Last Admin: 06/28/18 08:17 Dose: Not Given Lactulose (Cephulac) 30 gm PO Q6HR [facility] Stop: 08/20/18 08:59 Last Admin: 06/29/18 06:12 Dose: 30 gm Lorazepam (Ativan) 0.5 mg GT Q6H PRN; Protocol PRN Reason: Anxiety Stop: 08/20/18 08:20 Lorazepam (Ativan) 2 mg IVP Q6HR PRN; Protocol PRN Reason: Agitation Stop: 08/20/18 08:10 Last Admin: 06/28/18 09:39 Dose: 2 mg Lorazepam (Ativan) 1 mg PO TID [facility]; Protocol Stop: 08/22/18 08:59 Last Admin: 06/28/18 21:15 Dose: 1 mg Magnesium Hydroxide (Milk Of Magnesia) 30 ml GT HS PRN PRN Reason: Constipation Stop: 08/20/18 08:20 Metronidazole (Flagyl) 500 mg PO BID [facility] Stop: 07/01/18 16:59 Last Admin: 06/28/18 17:00 Dose: Not Given Midodrine (Proamatine) 5 mg GT TID [facility] Stop: 08/20/18 08:59 Last Admin: 06/28/18 21:16 Dose: 5 mg Miscellaneous (Vte Chemical Prophylaxis Screen/ Admission) 1 ea [facility] PRN PRN PRN Reason: PROTOCOL Stop: 08/20/18 12:59 Miscellaneous (Probiotic Screen) 1 ea MC PRN PRN PRN Reason: PROTOCOL Stop: 08/22/18 14:29 Morphine Sulfate (Morphine) 1 mg IVP Q4HR PRN PRN Reason: moderate pain Stop: 08/27/18 11:25 Morphine Sulfate (Morphine) 2 mg IVP Q4HR PRN PRN Reason: Severe Pain Stop: 08/27/18 11:25 Last Admin: 06/28/18 15:14 Dose: 2 mg Pantoprazole Sodium (Protonix) 40 mg GT QDAC WINIFRED Stop: 08/20/18 11:29 Last Admin: 06/28/18 06:48 Dose: Not Given Pioglitazone HCl (Actos) 15 mg GT DAILY WINIFRED Stop: 08/20/18 08:59 Last Admin: 06/28/18 08:19 Dose: Not Given Potassium Chloride (Klor-Con) 20 meq PO DAILY WINIFRED Stop: 08/20/18 08:59 Last Admin: 06/28/18 08:19 Dose: Not Given Quetiapine Fumarate (Seroquel Xr) 200 mg PO BID WINIFRED; Protocol Stop: 08/22/18 08:59 Last Admin: 06/28/18 17:00 Dose: Not Given Sodium Phosphate (Fleet Enema) 135 ml RC Q48H PRN PRN Reason: Constipation Stop: 08/20/18 08:20 Zolpidem Tartrate (Ambien) 10 mg GT HS WINIFRED Stop: 08/21/18 20:59 Last Admin: 06/28/18 21:15 Dose: 10 mg General: No acute distress, Other (confused) Cardiovascular: Regular rate, Normal S1, Normal S2 Lungs: Clear to auscultation, Normal air movement Abdomen: Bowel sounds (normal), Soft, Other (Site of G tube is clean) - Procedures Procedures: Procedures Procedure Code Date ASSISTANCE WITH RESPIRATORY VENTILATION, <24 HRS, CPAP [id number] 06/01/18 INSPECTION OF UPPER INTESTINAL TRACT, ENDO [id number] 06/21/18 REMOVAL OF FEEDING DEVICE FROM STOMACH, EXTERNAL APPROACH [id number] 06/21/18 Assessment/Plan - Problem List Patient Problems: All Active Problems Altered level of consciousness (Acute) R40.4 Diabetes (Acute) E11.9 Encephalopathy (Acute) G93.40 Iron deficiency (Acute) E61.1 Leukocytosis (Acute) D72.829 Osteoarthritis (Acute) M19.90 UTI (urinary tract infection) (Acute) - Assessment Assessment: 58 YO MALE WITH DYSPHAGIA GT WAS REMOVED NOW PT NEEDS PEG DUE TO ANOREXIA/DYSPHAGIA 1.CONT SUPP CARE 2.PEG SUNDAY
[2018-06-29] MEDS: Pantoprazole 40 mg/Packet GT SCH (08:40)
[2018-06-29] MEDS: Docusate Sodium 100 mg/10 mL UD GT SCH (08:41)
[2018-06-29] MEDS: Ferrous Sulfate 300 MG/5 ML UDC GT SCH (08:41)
[2018-06-29] MEDS: Lactobacillus Rhamnosus GG 15 Billion CFU CAP.SPRINK GT SCH (08:41)
[2018-06-29] MEDS: Potassium Chloride 20 mEq ER Tab PO SCH (08:42)
[2018-06-29] MEDS: Levofloxacin 500mg/100mL 500 MG/100 ML BAG IV SCH (15:38)
--- NOTE | 2018-06-29 23:30 | Progress Notes ---
DATE: 06/29/2018 SUBJECTIVE: The patient was seen in his room. The patient is awake, but poor historian and appears to be confused. The patient has bilateral soft wrist restraints for safety. Otherwise, the patient is in no acute distress. OBJECTIVE: VITAL SIGNS: Temperature 99.1, heart rate 98, blood pressure 146/98, respirations of 18, and 96% on room air. HEENT: Head is atraumatic and normocephalic. Eyes: Bilateral conjunctivae are clear. Bilateral pupils are equally round and reactive. NECK: Supple. No JVD. CARDIOVASCULAR: S1 and S2, without murmur. PULMONARY: Clear to auscultation. GASTROINTESTINAL: Soft and nontender without guarding. Positive bowel sounds. MUSCULOSKELETAL: No clubbing. No cyanosis noted. ASSESSMENT: 1. Altered level of consciousness. 2. Urinary tract infection. 3. Encephalopathy. 4. Osteoarthritis. 5. Iron deficiency anemia. 6. Diabetes. 7. Dysphagia. PLAN: We will continue current treatment. The patient will undergo PEG placement on Sunday and according to nurses, they are having a hard time in doing IV insertion. We will try to do PICC line insertion. Treatment plans were discussed with the patient's nurse. Treatment plans were discussed with Dr. Sanders. JOB# [id number]
[2018-06-30] MEDS: Lactulose 10 Gm/15 mL 30mL UDC PO SCH ×4 (00:27→18:17)
--- NOTE | 2018-06-30 02:30 | Progress Notes ---
DATE: 06/29/[address] Carrion. SUBJECTIVE: Case was discussed with staff of the patient and reviewed records. The patient is a 58-year-old male who was admitted on 06/21/2018 because of irritability, agitation, restless, unable to follow staff direction and instructions, fighting, aggressive with staff, difficulty with his moods with history what seemed to be schizophrenia. The patient is on Seroquel. The patient continues to have ____ of irritability when generally he is calmer. He is easier to be redirected, less irritable, less agitated, interacting more. He is compliant with the medication with no side effects with the medication, no sedation, no nausea, no extrapyramidal symptoms. We will continue to follow the patient. Thank you very much for allowing me to participate in the care of this most interesting gentleman. JOB# [id number]
[2018-06-30] MEDS: D5-0.45NS 1,000 ML IV SCH ×2 (07:26→18:15)
--- NOTE | 2018-06-30 08:15 | GI Progress Note ---
Subjective - Review of Systems Subjective: NO EVENTS Objective - Results Result Diagrams: 06/27/18 06:05 06/27/18 06:05 Recent Labs: Laboratory Last Values WBC 9.3 Th/cmm (4.8-10.8) 06/27/18 06:05 RBC 4.42 Mil/cmm (4.30-5.70) 06/27/18 06:05 Hgb 12.7 gm/dL (12-16) 06/27/18 06:05 Hct 38.3 % (41.0-60) L 06/27/18 06:05 MCV 86.5 fl (80-99) 06/27/18 06:05 MCH 28.7 pg (26.0-30.0) 06/27/18 06:05 MCHC Differential 33.2 pg (28.0-36.0) 06/27/18 06:05 RDW 15.0 % (11.5-20.0) 06/27/18 06:05 Plt Count 316 Th/cmm (150-400) 06/27/18 06:05 MPV 8.1 fl 06/27/18 06:05 Neutrophils % 54.6 % (40.0-80.0) 06/27/18 06:05 Band Neutrophils % 3 % (0-10) 06/26/18 05:45 Lymphocytes % 17.7 % (20.0-50.0) L 06/27/18 06:05 Monocytes % 7.8 % (2.0-10.0) 06/27/18 06:05 Eosinophils % 15.7 % (0.0-5.0) H 06/27/18 06:05 Basophils % 4.2 % (0.0-2.0) H 06/27/18 06:05 Neutrophils (Manual) 81 % (40-80) H 06/26/18 05:45 Lymphocytes 6 % (20-50) L 06/26/18 05:45 Monocytes 3 % (2-10) 06/26/18 05:45 Eosinophils 7 % (0-5) H 06/26/18 05:45 PT 10.3 SECONDS (9.5-11.5) 06/29/18 06:39 INR 0.99 (0.5-1.4) 06/29/18 06:39 PTT (Actin FS) 23.3 SECONDS (26.0-38.0) L 06/24/18 06:10 Sodium 136 mEq/L (136-145) 06/27/18 06:05 Potassium 4.1 mEq/L (3.5-5.1) 06/27/18 06:05 Chloride 105 mEq/L (98-107) 06/27/18 06:05 Carbon Dioxide 22.8 mEq/L (21.0-31.0) 06/27/18 06:05 Anion Gap 12.3 (7.0-16.0) 06/27/18 06:05 BUN 5 mg/dL (7-25) L 06/27/18 06:05 Creatinine 0.7 mg/dL (0.7-1.3) 06/27/18 06:05 Est GFR ( Amer) > 60.0 ml/min (>90) 06/27/18 06:05 Est GFR (Non-Af Amer) > 60.0 ml/min 06/27/18 06:05 BUN/Creatinine Ratio 7.1 06/27/18 06:05 Glucose 133 mg/dL (70-105) H 06/27/18 06:05 POC Glucose 130 MG/DL (70 - 105) H 06/29/18 21:18 Whole Bld Lactic Acid 0.89 mmol/L (0.60-1.99) 06/21/18 00:10 Calcium 8.8 mg/dL (8.6-10.3) 06/27/18 06:05 Total Bilirubin 0.2 mg/dL (0.3-1.0) L 06/23/18 06:09 AST 19 U/L (13-39) 06/23/18 06:09 ALT 13 U/L (7-52) 06/23/18 06:09 Alkaline Phosphatase 103 U/L (34-104) 06/23/18 06:09 Ammonia 50 umol/L (16-53) 06/26/18 12:18 Total Protein 6.1 gm/dL (6.0-8.3) 06/23/18 06:09 Albumin 3.4 gm/dL (4.2-5.5) L 06/23/18 06:09 Globulin 2.7 gm/dL 06/23/18 06:09 Albumin/Globulin Ratio 1.3 (1.0-1.8) 06/23/18 06:09 Triglycerides 83 mg/dL (<150) 06/21/18 00:10 Cholesterol 133 mg/dL (<200) 06/21/18 00:10 LDL Cholesterol Direct 78 mg/dL (75-193) 06/21/18 00:10 HDL Cholesterol 33 mg/dL (23-92) 06/21/18 00:10 TSH 0.51 uIU/ml (0.34-5.60) 06/21/18 00:10 Urine Source RANDOM 06/25/18 00:10 Urine Color YELLOW 06/25/18 00:10 Urine Clarity CLEAR (CLEAR) 06/25/18 00:10 Urine pH 6.0 (4.6 - 8.0) 06/25/18 00:10 Ur Specific [place] 1.020 (1.005-1.030) 06/25/18 00:10 Urine Protein NEGATIVE mg/dL (NEGATIVE) 06/25/18 00:10 Urine Glucose (UA) NEGATIVE mg/dL (NEGATIVE) 06/25/18 00:10 Urine Ketones 15 mg/dL (NEGATIVE) H 06/25/18 00:10 Urine Blood NEGATIVE (NEGATIVE) 06/25/18 00:10 Urine Nitrate NEGATIVE (NEGATIVE) 06/25/18 00:10 Urine Bilirubin NEGATIVE (NEGATIVE) 06/25/18 00:10 Urine Ictotest NEGATIVE (NEGATIVE) 06/21/18 02:45 Urine Urobilinogen 0.2 E.U./dL (0.2 - 1.0) 06/25/18 00:10 Ur Leukocyte Esterase NEGATIVE (NEGATIVE) 06/25/18 00:10 Urine RBC 0-2 /hpf (0-5) H 06/21/18 02:45 Urine WBC 0-2 /hpf (0-5) 06/21/18 02:45 Ur Epithelial Cells FEW /lpf (FEW) 06/21/18 02:45 Urine Bacteria OCCASIONAL /hpf (NONE SEEN) 06/21/18 02:45 Urine Mucus MODERATE /lpf (FEW) 06/21/18 02:45 Salicylates < 25.0 mg/L (30.0-100.0) L 06/21/18 00:10 Urine Opiates Screen NEGATIVE (NEGATIVE) 06/21/18 02:45 Urine Methadone Screen NEGATIVE (NEGATIVE) 06/21/18 02:45 Acetaminophen < 10.0 ug/mL (10.0-30.0) L 06/21/18 00:10 Ur Barbiturates Screen NEGATIVE (NEGATIVE) 06/21/18 02:45 Valproic Acid 20.3 ug/mL (50.0-100.0) L 06/26/18 05:45 Ur Tricyclics Screen POSITIVE (NEGATIVE) H 06/21/18 02:45 Ur Phencyclidine Scrn NEGATIVE (NEGATIVE) 06/21/18 02:45 Amphetamines Screen NEGATIVE (NEGATIVE) 06/21/18 02:45 U Methamphetamines Scrn NEGATIVE (NEGATIVE) 06/21/18 02:45 U Benzodiazepines Scrn POSITIVE (NEGATIVE) H 06/21/18 02:45 U Cocaine Metab Screen NEGATIVE (NEGATIVE) 06/21/18 02:45 U Cannabinoids Screen NEGATIVE (NEGATIVE) 06/21/18 02:45 Ethyl Alcohol < 10 mg/dL (0-10) 06/21/18 00:10 RPR NONREACTIVE (NONREACTIVE) 06/21/18 00:10 - Physical Exam Vitals and I&O: Vital Signs Temp 97.1 F 06/30/18 07:52 Pulse 81 06/30/18 07:52 Resp 20 06/30/18 07:52 BP 146/74 06/30/18 07:52 Pulse Ox 97 06/30/18 07:52 Intake & Output 06/29/18 06/30/18 06/30/18 18:59 06:59 18:59 Intake Total 1000 0 Balance 1000 0 Weight (lbs) 99.79 kg 99.79 kg Intake: Intake, IV Amount 1000 D5-0.45NS 1,000 ml @ 100 1000 mls/hr IV .Q10H [facility] Rx#: [id number] Oral 0 Other: # Voids 4 Weight Source Standing scale Bedscale Active Medications: Current Medications Acetaminophen (Tylenol) 650 mg GT Q6HR PRN PRN Reason: Mild Pain or Fever >101 Stop: 08/20/18 08:20 Last Admin: 06/21/18 21:21 Dose: 650 mg Acetaminophen (Tylenol Extra Strength) 1,000 mg GT Q8H PRN PRN Reason: Pain (Moderate) Stop: 08/20/18 08:20 Last Admin: 06/25/18 21:40 Dose: 1,000 mg Albuterol Sulfate (Albuterol 2.5mg/3ml Neb Ud) 2.5 mg HHN BID PRN PRN Reason: Shortness of Breath Last Admin: 06/25/18 23:19 Dose: 2.5 mg Ascorbic Acid (Vitamin C) 500 mg GT DAILY [facility] Stop: 08/20/18 10:59 Last Admin: 06/29/18 08:40 Dose: Not Given Bisacodyl (Dulcolax 10 Mg Supp) 10 mg RC DAILY PRN PRN Reason: Constipation Stop: 08/20/18 08:20 Divalproex Sodium (Depakote Dr) 250 mg PO BID [facility] Stop: 08/25/18 03:29 Last Admin: 06/29/18 18:31 Dose: Not Given Docusate Sodium (Colace) 100 mg GT DAILY [facility] Stop: 08/20/18 10:59 Last Admin: 06/29/18 08:41 Dose: Not Given Ferrous Sulfate (Iron) 450 mg GT DAILY [facility] Stop: 08/20/18 10:59 Last Admin: 06/29/18 08:41 Dose: Not Given Haloperidol Lactate (Haldol) 2 mg IM Q6HR PRN PRN Reason: Agitation Stop: 08/27/18 11:24 Heparin Sodium (Porcine) (Heparin) 5,000 units SUBQ Q12H [facility] Stop: 08/20/18 20:59 Last Admin: 06/29/18 21:02 Dose: 5,000 units Hydroxyzine HCl (Atarax) 10 mg GT TID PRN; Protocol PRN Reason: PRURITUS Stop: 08/20/18 08:20 Last Admin: 06/25/18 21:39 Dose: 10 mg Levofloxacin (Levaquin Pb) 500 mg in 100 mls @ 100 mls/hr IV Q24HR [facility] Stop: 08/23/18 14:59 Last Admin: 06/29/18 15:38 Dose: 100 mls/hr Dextrose/Sodium Chloride (D5-0.45ns) 1,000 mls @ 100 mls/hr IV .Q10H [facility] Stop: 08/25/18 18:21 Last Admin: 06/30/18 07:26 Dose: 100 mls/hr Insulin Aspart (Novolog Insulin Sliding Scale) 0 units SUBQ ACHS [facility]; Protocol Stop: 08/20/18 11:29 Last Admin: 06/29/18 21:30 Dose: Not Given Lactobacillus Rhamnosus (Culturelle 15b) 1 each GT DAILY [facility] Stop: 08/20/18 10:59 Last Admin: 06/29/18 08:41 Dose: Not Given Lactulose (Cephulac) 30 gm PO Q6HR [facility] Stop: 08/20/18 08:59 Last Admin: 06/30/18 05:55 Dose: Not Given Lorazepam (Ativan) 0.5 mg GT Q6H PRN; Protocol PRN Reason: Anxiety Stop: 08/20/18 08:20 Lorazepam (Ativan) 2 mg IVP Q6HR PRN; Protocol PRN Reason: Agitation Stop: 08/20/18 08:10 Last Admin: 06/30/18 05:28 Dose: 2 mg Lorazepam (Ativan) 1 mg PO TID [facility]; Protocol Stop: 08/22/18 08:59 Last Admin: 06/29/18 21:01 Dose: 1 mg Magnesium Hydroxide (Milk Of Magnesia) 30 ml GT HS PRN PRN Reason: Constipation Stop: 08/20/18 08:20 Metronidazole (Flagyl) 500 mg PO BID [facility] Stop: 07/01/18 16:59 Last Admin: 06/29/18 18:31 Dose: Not Given Midodrine (Proamatine) 5 mg GT TID [facility] Stop: 08/20/18 08:59 Last Admin: 06/29/18 21:01 Dose: 5 mg Miscellaneous (Vte Chemical Prophylaxis Screen/ Admission) 1 ea MC PRN PRN PRN Reason: PROTOCOL Stop: 08/20/18 12:59 Miscellaneous (Probiotic Screen) 1 ea MC PRN PRN PRN Reason: PROTOCOL Stop: 08/22/18 14:29 Morphine Sulfate (Morphine) 1 mg IVP Q4HR PRN PRN Reason: moderate pain Stop: 08/27/18 11:25 Morphine Sulfate (Morphine) 2 mg IVP Q4HR PRN PRN Reason: Severe Pain Stop: 08/27/18 11:25 Last Admin: 06/28/18 15:14 Dose: 2 mg Pantoprazole Sodium (Protonix) 40 mg GT QDAC [facility] Stop: 08/20/18 11:29 Last Admin: 06/29/18 08:40 Dose: Not Given Pioglitazone HCl (Actos) 15 mg GT DAILY [facility] Stop: 08/20/18 08:59 Last Admin: 06/29/18 08:41 Dose: Not Given Potassium Chloride (Klor-Con) 20 meq PO DAILY [facility] Stop: 08/20/18 08:59 Last Admin: 06/29/18 08:42 Dose: Not Given Quetiapine Fumarate (Seroquel Xr) 200 mg PO BID [facility]; Protocol Stop: 08/22/18 08:59 Last Admin: 06/29/18 18:31 Dose: Not Given Sodium Phosphate (Fleet Enema) 135 ml RC Q48H PRN PRN Reason: Constipation Stop: 08/20/18 08:20 Zolpidem Tartrate (Ambien) 10 mg GT HS [facility] Stop: 08/21/18 20:59 Last Admin: 06/29/18 21:01 Dose: 10 mg General: No acute distress, Other (confused) Cardiovascular: Regular rate, Normal S1, Normal S2 Lungs: Clear to auscultation, Normal air movement Abdomen: Bowel sounds (normal), Soft, Other (Site of G tube is clean) - Procedures Procedures: Procedures Procedure Code Date ASSISTANCE WITH RESPIRATORY VENTILATION, <24 HRS, CPAP [id number] 06/01/18 INSPECTION OF UPPER INTESTINAL TRACT, ENDO [id number] 06/21/18 REMOVAL OF FEEDING DEVICE FROM STOMACH, EXTERNAL APPROACH [id number] 06/21/18 Assessment/Plan - Problem List Patient Problems: All Active Problems Altered level of consciousness (Acute) R40.4 Diabetes (Acute) E11.9 Encephalopathy (Acute) G93.40 Iron deficiency (Acute) E61.1 Leukocytosis (Acute) D72.829 Osteoarthritis (Acute) M19.90 UTI (urinary tract infection) (Acute) - Assessment Assessment: 58 YO MALE WITH DYSPHAGIA GT WAS REMOVED NOW PT NEEDS PEG DUE TO ANOREXIA/DYSPHAGIA 1.CONT SUPP CARE 2.PEG SUNDAY IF CONSENT OBTAINED
[2018-06-30] MEDS: Pantoprazole 40 mg/Packet GT SCH (09:20)
[2018-06-30] MEDS: INSULIN ASPART SLIDING SCALE 100 UNITS/ML UNIT SUBQ SCH ×4 (09:20→22:59)
[2018-06-30] MEDS: Docusate Sodium 100 mg/10 mL UD GT SCH (09:20)
[2018-06-30] MEDS: Potassium Chloride 20 mEq ER Tab PO SCH (09:21)
[2018-06-30] MEDS: Lactobacillus Rhamnosus GG 15 Billion CFU CAP.SPRINK GT SCH (09:21)
[2018-06-30] MEDS: Ferrous Sulfate 300 MG/5 ML UDC GT SCH (09:21)
--- NOTE | 2018-06-30 11:57 | Internal Medicine Prog Note ---
Internal Medicine Subjective - Subjective Patient is:: awake, verbal, other (improving,less irritable ,more compliant ) Per staff patient has:: tolerating meds Internal Medicine Objective - Results Result Diagrams: 06/27/18 06:05 06/27/18 06:05 Recent Labs: Laboratory Last Values WBC 9.3 Th/cmm (4.8-10.8) 06/27/18 06:05 RBC 4.42 Mil/cmm (4.30-5.70) 06/27/18 06:05 Hgb 12.7 gm/dL (12-16) 06/27/18 06:05 Hct 38.3 % (41.0-60) L 06/27/18 06:05 MCV 86.5 fl (80-99) 06/27/18 06:05 MCH 28.7 pg (26.0-30.0) 06/27/18 06:05 MCHC Differential 33.2 pg (28.0-36.0) 06/27/18 06:05 RDW 15.0 % (11.5-20.0) 06/27/18 06:05 Plt Count 316 Th/cmm (150-400) 06/27/18 06:05 MPV 8.1 fl 06/27/18 06:05 Neutrophils % 54.6 % (40.0-80.0) 06/27/18 06:05 Band Neutrophils % 3 % (0-10) 06/26/18 05:45 Lymphocytes % 17.7 % (20.0-50.0) L 06/27/18 06:05 Monocytes % 7.8 % (2.0-10.0) 06/27/18 06:05 Eosinophils % 15.7 % (0.0-5.0) H 06/27/18 06:05 Basophils % 4.2 % (0.0-2.0) H 06/27/18 06:05 Neutrophils (Manual) 81 % (40-80) H 06/26/18 05:45 Lymphocytes 6 % (20-50) L 06/26/18 05:45 Monocytes 3 % (2-10) 06/26/18 05:45 Eosinophils 7 % (0-5) H 06/26/18 05:45 PT 10.3 SECONDS (9.5-11.5) 06/29/18 06:39 INR 0.99 (0.5-1.4) 06/29/18 06:39 PTT (Actin FS) 23.3 SECONDS (26.0-38.0) L 06/24/18 06:10 Sodium 136 mEq/L (136-145) 06/27/18 06:05 Potassium 4.1 mEq/L (3.5-5.1) 06/27/18 06:05 Chloride 105 mEq/L (98-107) 06/27/18 06:05 Carbon Dioxide 22.8 mEq/L (21.0-31.0) 06/27/18 06:05 Anion Gap 12.3 (7.0-16.0) 06/27/18 06:05 BUN 5 mg/dL (7-25) L 06/27/18 06:05 Creatinine 0.7 mg/dL (0.7-1.3) 06/27/18 06:05 Est GFR ( Amer) > 60.0 ml/min (>90) 06/27/18 06:05 Est GFR (Non-Af Amer) > 60.0 ml/min 06/27/18 06:05 BUN/Creatinine Ratio 7.1 06/27/18 06:05 Glucose 133 mg/dL (70-105) H 06/27/18 06:05 POC Glucose 130 MG/DL (70 - 105) H 06/29/18 21:18 Whole Bld Lactic Acid 0.89 mmol/L (0.60-1.99) 06/21/18 00:10 Calcium 8.8 mg/dL (8.6-10.3) 06/27/18 06:05 Total Bilirubin 0.2 mg/dL (0.3-1.0) L 06/23/18 06:09 AST 19 U/L (13-39) 06/23/18 06:09 ALT 13 U/L (7-52) 06/23/18 06:09 Alkaline Phosphatase 103 U/L (34-104) 06/23/18 06:09 Ammonia 50 umol/L (16-53) 06/26/18 12:18 Total Protein 6.1 gm/dL (6.0-8.3) 06/23/18 06:09 Albumin 3.4 gm/dL (4.2-5.5) L 06/23/18 06:09 Globulin 2.7 gm/dL 06/23/18 06:09 Albumin/Globulin Ratio 1.3 (1.0-1.8) 06/23/18 06:09 Triglycerides 83 mg/dL (<150) 06/21/18 00:10 Cholesterol 133 mg/dL (<200) 06/21/18 00:10 LDL Cholesterol Direct 78 mg/dL (75-193) 06/21/18 00:10 HDL Cholesterol 33 mg/dL (23-92) 06/21/18 00:10 TSH 0.51 uIU/ml (0.34-5.60) 06/21/18 00:10 Urine Source RANDOM 06/25/18 00:10 Urine Color YELLOW 06/25/18 00:10 Urine Clarity CLEAR (CLEAR) 06/25/18 00:10 Urine pH 6.0 (4.6 - 8.0) 06/25/18 00:10 Ur Specific [place] 1.020 (1.005-1.030) 06/25/18 00:10 Urine Protein NEGATIVE mg/dL (NEGATIVE) 06/25/18 00:10 Urine Glucose (UA) NEGATIVE mg/dL (NEGATIVE) 06/25/18 00:10 Urine Ketones 15 mg/dL (NEGATIVE) H 06/25/18 00:10 Urine Blood NEGATIVE (NEGATIVE) 06/25/18 00:10 Urine Nitrate NEGATIVE (NEGATIVE) 06/25/18 00:10 Urine Bilirubin NEGATIVE (NEGATIVE) 06/25/18 00:10 Urine Ictotest NEGATIVE (NEGATIVE) 06/21/18 02:45 Urine Urobilinogen 0.2 E.U./dL (0.2 - 1.0) 06/25/18 00:10 Ur Leukocyte Esterase NEGATIVE (NEGATIVE) 06/25/18 00:10 Urine RBC 0-2 /hpf (0-5) H 06/21/18 02:45 Urine WBC 0-2 /hpf (0-5) 06/21/18 02:45 Ur Epithelial Cells FEW /lpf (FEW) 06/21/18 02:45 Urine Bacteria OCCASIONAL /hpf (NONE SEEN) 06/21/18 02:45 Urine Mucus MODERATE /lpf (FEW) 06/21/18 02:45 Salicylates < 25.0 mg/L (30.0-100.0) L 06/21/18 00:10 Urine Opiates Screen NEGATIVE (NEGATIVE) 06/21/18 02:45 Urine Methadone Screen NEGATIVE (NEGATIVE) 06/21/18 02:45 Acetaminophen < 10.0 ug/mL (10.0-30.0) L 06/21/18 00:10 Ur Barbiturates Screen NEGATIVE (NEGATIVE) 06/21/18 02:45 Valproic Acid 20.3 ug/mL (50.0-100.0) L 06/26/18 05:45 Ur Tricyclics Screen POSITIVE (NEGATIVE) H 06/21/18 02:45 Ur Phencyclidine Scrn NEGATIVE (NEGATIVE) 06/21/18 02:45 Amphetamines Screen NEGATIVE (NEGATIVE) 06/21/18 02:45 U Methamphetamines Scrn NEGATIVE (NEGATIVE) 06/21/18 02:45 U Benzodiazepines Scrn POSITIVE (NEGATIVE) H 06/21/18 02:45 U Cocaine Metab Screen NEGATIVE (NEGATIVE) 06/21/18 02:45 U Cannabinoids Screen NEGATIVE (NEGATIVE) 06/21/18 02:45 Ethyl Alcohol < 10 mg/dL (0-10) 06/21/18 00:10 RPR NONREACTIVE (NONREACTIVE) 06/21/18 00:10 - Physical Exam Vitals and I&O: Vital Signs Temp 97.0 F 06/30/18 11:36 Pulse 91 06/30/18 11:36 Resp 20 06/30/18 11:36 BP 163/96 06/30/18 11:36 Pulse Ox 95 06/30/18 11:36 Intake & Output 06/29/18 06/30/18 06/30/18 18:59 06:59 18:59 Intake Total 1000 0 Balance 1000 0 Weight (lbs) 99.79 kg 99.79 kg Intake: Intake, IV Amount 1000 D5-0.45NS 1,000 ml @ 100 1000 mls/hr IV .Q10H [facility] Rx#: [id number] Oral 0 Other: # Voids 4 Weight Source Standing scale Bedscale Active Medications: Current Medications Acetaminophen (Tylenol) 650 mg GT Q6HR PRN PRN Reason: Mild Pain or Fever >101 Stop: 08/20/18 08:20 Last Admin: 06/21/18 21:21 Dose: 650 mg Acetaminophen (Tylenol Extra Strength) 1,000 mg GT Q8H PRN PRN Reason: Pain (Moderate) Stop: 12/04/18 08:20 Last Admin: 06/25/18 21:40 Dose: 1,000 mg Albuterol Sulfate (Albuterol 2.5mg/3ml Neb Ud) 2.5 mg HHN BID PRN PRN Reason: Shortness of Breath Last Admin: 06/25/18 23:19 Dose: 2.5 mg Ascorbic Acid (Vitamin C) 500 mg GT DAILY [facility] Stop: 08/20/18 10:59 Last Admin: 06/30/18 09:20 Dose: Not Given Bisacodyl (Dulcolax 10 Mg Supp) 10 mg RC DAILY PRN PRN Reason: Constipation Stop: 08/20/18 08:20 Divalproex Sodium (Depakote Dr) 250 mg PO BID [facility] Stop: 08/25/18 03:29 Last Admin: 06/30/18 09:20 Dose: Not Given Docusate Sodium (Colace) 100 mg GT DAILY [facility] Stop: 08/20/18 10:59 Last Admin: 06/30/18 09:20 Dose: Not Given Ferrous Sulfate (Iron) 450 mg GT DAILY [facility] Stop: 08/20/18 10:59 Last Admin: 06/30/18 09:21 Dose: Not Given Haloperidol Lactate (Haldol) 2 mg IM Q6HR PRN PRN Reason: Agitation Stop: 08/27/18 11:24 Heparin Sodium (Porcine) (Heparin) 5,000 units SUBQ Q12H [facility] Stop: 08/20/18 20:59 Last Admin: 06/30/18 10:34 Dose: 5,000 units Hydroxyzine HCl (Atarax) 10 mg GT TID PRN; Protocol PRN Reason: PRURITUS Stop: 08/20/18 08:20 Last Admin: 06/25/18 21:39 Dose: 10 mg Levofloxacin (Levaquin Pb) 500 mg in 100 mls @ 100 mls/hr IV Q24HR [facility] Stop: 08/23/18 14:59 Last Admin: 06/29/18 15:38 Dose: 100 mls/hr Dextrose/Sodium Chloride (D5-0.45ns) 1,000 mls @ 100 mls/hr IV .Q10H [facility] Stop: 08/25/18 18:21 Last Admin: 06/30/18 07:26 Dose: 100 mls/hr Insulin Aspart (Novolog Insulin Sliding Scale) 0 units SUBQ ACHS [facility]; Protocol Stop: 08/20/18 11:29 Last Admin: 06/30/18 09:20 Dose: Not Given Lactobacillus Rhamnosus (Culturelle 15b) 1 each GT DAILY [facility] Stop: 08/20/18 10:59 Last Admin: 06/30/18 09:21 Dose: Not Given Lactulose (Cephulac) 30 gm PO Q6HR [facility] Stop: 08/20/18 08:59 Last Admin: 06/30/18 05:55 Dose: Not Given Lorazepam (Ativan) 0.5 mg GT Q6H PRN; Protocol PRN Reason: Anxiety Stop: 08/20/18 08:20 Lorazepam (Ativan) 2 mg IVP Q6HR PRN; Protocol PRN Reason: Agitation Stop: 08/20/18 08:10 Last Admin: 06/30/18 05:28 Dose: 2 mg Lorazepam (Ativan) 1 mg PO TID [facility]; Protocol Stop: 08/22/18 08:59 Last Admin: 06/30/18 09:21 Dose: Not Given Magnesium Hydroxide (Milk Of Magnesia) 30 ml GT HS PRN PRN Reason: Constipation Stop: 08/20/18 08:20 Metronidazole (Flagyl) 500 mg PO BID [facility] Stop: 07/01/18 16:59 Last Admin: 06/30/18 09:21 Dose: Not Given Midodrine (Proamatine) 5 mg GT TID [facility] Stop: 08/20/18 08:59 Last Admin: 06/30/18 09:21 Dose: Not Given Miscellaneous (Vte Chemical Prophylaxis Screen/ Admission) 1 ea MC PRN PRN PRN Reason: PROTOCOL Stop: 08/20/18 12:59 Miscellaneous (Probiotic Screen) 1 ea MC PRN PRN PRN Reason: PROTOCOL Stop: 08/22/18 14:29 Morphine Sulfate (Morphine) 1 mg IVP Q4HR PRN PRN Reason: moderate pain Stop: 08/27/18 11:25 Morphine Sulfate (Morphine) 2 mg IVP Q4HR PRN PRN Reason: Severe Pain Stop: 08/27/18 11:25 Last Admin: 06/28/18 15:14 Dose: 2 mg Pantoprazole Sodium (Protonix) 40 mg GT QDAC [facility] Stop: 08/20/18 11:29 Last Admin: 06/30/18 09:20 Dose: Not Given Pioglitazone HCl (Actos) 15 mg GT DAILY [facility] Stop: 08/20/18 08:59 Last Admin: 06/30/18 09:21 Dose: Not Given Potassium Chloride (Klor-Con) 20 meq PO DAILY [facility] Stop: 08/20/18 08:59 Last Admin: 06/30/18 09:21 Dose: Not Given Quetiapine Fumarate (Seroquel Xr) 200 mg PO BID [facility]; Protocol Stop: 08/22/18 08:59 Last Admin: 06/30/18 09:21 Dose: Not Given Sodium Phosphate (Fleet Enema) 135 ml RC Q48H PRN PRN Reason: Constipation Stop: 08/20/18 08:20 General: alert HEENT: NC/AT, PERRLA Neck: Supple Lungs: CTAB Cardiovascular: RRR, Normal S1, Normal S2, without murmur Abdomen: soft, non-tender, non-distended Neurological: alert - Procedures Procedures: Procedures Procedure Code Date ASSISTANCE WITH RESPIRATORY VENTILATION, <24 HRS, CPAP [id number] 06/01/18 INSPECTION OF UPPER INTESTINAL TRACT, ENDO [id number] 06/21/18 REMOVAL OF FEEDING DEVICE FROM STOMACH, EXTERNAL APPROACH [id number] 06/21/18 Internal Medicine Assmt/Plan - Assessment Assessment: aloc acute uti htn dm copd esrd seizure disorder - Plan Plan: HOLD DISCHARGE monitor vitals/diet labs Nutritional Asmnt/Malnutr-PDOC - Dietary Evaluation Malnutrition Findings (Please click <Entered> for more info): Nutritional Asmnt/Malnutrition Start: 06/26/18 15: 31 Text: Status: Complete Freq: Protocol: Document 06/26/18 15:31 CONNOR (Rec: 06/26/18 15:46 CONNOR LEONE) Nutritional Asmnt/Malnutrition Patient General Information Nutritional Screening Moderate Risk Diagnosis ALOC, increased ammonia, leukocytosis Pertinent Medical Hx/Surgical Hx PEG/G Tube, ESRD, seizures, PUD/GERD, asthma/COPD, status post CVA and TIA, bipolar disorder, GERD, MRSA, gastritis, HTN, DM, status post cellulitis Subjective Information Pt sleeping at time of visit. Pt placed on NPO status after pt failed swallow eval today. Per nurse notes: pt was eating well and PO intake 75% prior to swallow eval. Pt had PEG tube and removed on 06/24. Per ST note, will reassess tommorrow 06/27. Current Diet Order/ Nutrition Support NPO Pertinent Medications novolog, culturelle, colace, iron, heparin, Vit C, dulcolax , protonix, klor-con, seroquel Xr, levaquin, Pertinent Labs 06/26: glucose 119, POC 109- 129 06/25: glucose 117, POC 108-130 Nutritional Hx/Data Height 1.68 m Height (Calculated Centimeters) 167.6 Current Weight (lbs) 86.183 kg Weight (Calculated Kilograms) 86.2 Weight (Calculated Grams) 03525.6 [place] Body Weight 142 lb Body Mass Index (BMI) 30.7 Weight Status Obese GI Symptoms GI Symptoms None Last BM 06/26 Difficult in: Swallowing Food Allergies No Skin Integrity/Comment: PEG removed, gastrostomy skin intact elizabeth 16 Current %PO Good (75-100%) Estimated Nutritional Goals BEE in Kcals: Adj wt of IBW Calories/Kcals/Kg 25-30 (based on adj wt 70 kg) Kcals Calculated 1541-7958 Protein: Adj wt of IBW Protein g/k (based on adj wt 70 kg) Protein Calculated 70 g Fluid: ml 4540-9827 (1 ml/kcal) Nutritional Problem 1. Problem Problem inadequate energy intake Etiology swallowing impairment Signs/Symptoms: NPO status after swallow eval and no alternate route of nutrition in place Malnutrition Alert Is there a minimum of two criteria No selected? Query Text:Check all the applicable criteria. A minimum of two criteria are recommended for diagnosis of either severe or non-severe malnutrition. Malnutrition Related to Morbid Obesity Malnutrition related to morbid obesity No Intervention/Recommendation Comments 1. Monitor NPO status. Consider alternate route of nutrition if pt unable to tolerate PO intake after swallow eval 06/27 2. Monitor wt, labs, and skin integrity 3. F/U as high risk in 2-3 days, 06/28-06/29 Expected Outcomes/Goals Expected Outcomes/Goals 1. Pt to meet at least 75% of nutritional needs from route of nutrition per ST 2. Wt stability, skin to remain intact, labs to approach WNL. Reviewed by Zoe Marsh RD
--- NOTE | 2018-06-30 13:54 | Progress Notes ---
DATE: 06/30/2018 Case was discussed with staff of the patient, reviewed records. The patient was crying today, unable to carry on a conversation. Continues to be unpredictable, impulsive, unable to express himself. No side effects of the medication, no sedation, no nausea. The staff was not sure if he may be in pain. He will be checked. He has a p.r.n. medication, asked the staff to give it to him, which is Ativan, Haldol, and Seroquel 200 mg twice a day. Thank you very much for allowing me to participate in the care of this most interesting gentleman. JOB# [id number]
[2018-06-30] MEDS: Levofloxacin 500mg/100mL 500 MG/100 ML BAG IV SCH (14:45)
[2018-07-01] MEDS: Lactulose 10 Gm/15 mL 30mL UDC PO SCH ×3 (05:28→13:55)
[2018-07-01] MEDS: D5-0.45NS 1,000 ML IV SCH (05:28)
[2018-07-01 05:39] LABS: % BASOPHILS 0.1 % (0.0-2.0); % EOSINOPHILS 12.2 % (0.0-5.0); % LYMPHOCYTES 25.9 % (20.0-50.0); % MONOCYTES 7.2 % (2.0-10.0); % NEUTROPHILS 54.6 % (40.0-80.0); HEMATOCRIT 39.3 % (41.0-60); LYMPHOCYTE ABSOLUTE 2.1 Th/cmm (1.5-3.0); MEAN CELL VOLUME 86.5 fl (80-99); MEAN CORPUSCULAR HEMOGLOBIN 28.6 pg (26.0-30.0); MEAN PLATELET VOLUME 6.7 fl; MONOCYTE ABSOLUTE 0.6 Th/cmm (0.3-1.0); NEUTROPHILE ABSOLUTE 4.5 Th/cmm (1.8-8.0); PLATELET COUNT 323 Th/cmm (150-400); RED BLOOD COUNT 4.54 Mil/cmm (4.30-5.70); RED CELL DISTRIBUTION WIDTH 15.6 % (11.5-20.0); WHITE BLOOD COUNT 8.2 Th/cmm (4.8-10.8)
[2018-07-01 05:55] LABS: INR 1.03 (0.5-1.4); PROTHROMBIN TIME (TEST) 10.7 SECONDS (9.5-11.5)
[2018-07-01 06:03] LABS: ALB/GLOB RATIO 1.1 (1.0-1.8); ALBUMIN 3.2 gm/dL (4.2-5.5); ALKALINE PHOSPHATASE 92 U/L (34-104); ANION GAP 8.7 (7.0-16.0); BILIRUBIN,TOTAL 0.4 mg/dL (0.3-1.0); BUN - UREA NITROGEN 5 mg/dL (7-25); CALCIUM SERUM 8.8 mg/dL (8.6-10.3); CARBON DIOXIDE 26.8 mEq/L (21.0-31.0); CHLORIDE 107 mEq/L (98-107); CREATININE - SERUM 0.7 mg/dL (0.7-1.3); GFR AFRICAN-AMERICAN > 60.0 ml/min (>90); GFR NON AFRICAN-AMERICAN > 60.0 ml/min; GLUCOSE 129 mg/dL (70-105); POTASSIUM SERUM 3.5 mEq/L (3.5-5.1); SGOT 24 U/L (13-39); SGPT/ALT 21 U/L (7-52); SODIUM SERUM 139 mEq/L (136-145); TOTAL PROTEIN,SERUM 6.1 gm/dL (6.0-8.3)
[2018-07-01] MEDS: Pantoprazole 40 mg/Packet GT SCH (08:07)
[2018-07-01] MEDS: INSULIN ASPART SLIDING SCALE 100 UNITS/ML UNIT SUBQ SCH ×4 (08:08→21:07)
[2018-07-01] MEDS: Lactobacillus Rhamnosus GG 15 Billion CFU CAP.SPRINK GT SCH (08:09)
[2018-07-01] MEDS: Ferrous Sulfate 300 MG/5 ML UDC GT SCH (08:09)
[2018-07-01] MEDS: Docusate Sodium 100 mg/10 mL UD GT SCH (08:09)
[2018-07-01] MEDS: Potassium Chloride 20 mEq ER Tab PO SCH (08:15)
[2018-07-01] MEDS: Haloperidol Lactate 5 mg/mL 1mL Vial IM PRN ×2 (09:01→17:33)
--- NOTE | 2018-07-01 12:22 | Infectious Disease Prog Note ---
Infectious Disease Subjective - Review of Systems Service Date: 07/01/18 Subjective: No new change, no fever. Infectious Disease Objective - Results Result Diagrams: 07/01/18 05:30 07/01/18 05:30 Recent Labs: Laboratory Last Values WBC 8.2 Th/cmm (4.8-10.8) 07/01/18 05:30 RBC 4.54 Mil/cmm (4.30-5.70) 07/01/18 05:30 Hgb 13.0 gm/dL (12-16) 07/01/18 05:30 Hct 39.3 % (41.0-60) L 07/01/18 05:30 MCV 86.5 fl (80-99) 07/01/18 05:30 MCH 28.6 pg (26.0-30.0) 07/01/18 05:30 MCHC Differential 33.0 pg (28.0-36.0) 07/01/18 05:30 RDW 15.6 % (11.5-20.0) 07/01/18 05:30 Plt Count 323 Th/cmm (150-400) 07/01/18 05:30 MPV 6.7 fl 07/01/18 05:30 Neutrophils % 54.6 % (40.0-80.0) 07/01/18 05:30 Band Neutrophils % 3 % (0-10) 06/26/18 05:45 Lymphocytes % 25.9 % (20.0-50.0) 07/01/18 05:30 Monocytes % 7.2 % (2.0-10.0) 07/01/18 05:30 Eosinophils % 12.2 % (0.0-5.0) H 07/01/18 05:30 Basophils % 0.1 % (0.0-2.0) 07/01/18 05:30 Neutrophils (Manual) 81 % (40-80) H 06/26/18 05:45 Lymphocytes 6 % (20-50) L 06/26/18 05:45 Monocytes 3 % (2-10) 06/26/18 05:45 Eosinophils 7 % (0-5) H 06/26/18 05:45 PT 10.7 SECONDS (9.5-11.5) 07/01/18 05:30 INR 1.03 (0.5-1.4) 07/01/18 05:30 PTT (Actin FS) 23.3 SECONDS (26.0-38.0) L 06/24/18 06:10 Sodium 139 mEq/L (136-145) 07/01/18 05:30 Potassium 3.5 mEq/L (3.5-5.1) 07/01/18 05:30 Chloride 107 mEq/L (98-107) 07/01/18 05:30 Carbon Dioxide 26.8 mEq/L (21.0-31.0) 07/01/18 05:30 Anion Gap 8.7 (7.0-16.0) 07/01/18 05:30 BUN 5 mg/dL (7-25) L 07/01/18 05:30 Creatinine 0.7 mg/dL (0.7-1.3) 07/01/18 05:30 Est GFR ( Amer) > 60.0 ml/min (>90) 07/01/18 05:30 Est GFR (Non-Af Amer) > 60.0 ml/min 07/01/18 05:30 BUN/Creatinine Ratio 7.1 07/01/18 05:30 Glucose 129 mg/dL (70-105) H 07/01/18 05:30 POC Glucose 98 MG/DL (70 - 105) 07/01/18 12:06 Whole Bld Lactic Acid 0.89 mmol/L (0.60-1.99) 06/21/18 00:10 Calcium 8.8 mg/dL (8.6-10.3) 07/01/18 05:30 Total Bilirubin 0.4 mg/dL (0.3-1.0) 07/01/18 05:30 AST 24 U/L (13-39) 07/01/18 05:30 ALT 21 U/L (7-52) 07/01/18 05:30 Alkaline Phosphatase 92 U/L (34-104) 07/01/18 05:30 Ammonia 50 umol/L (16-53) 06/26/18 12:18 Total Protein 6.1 gm/dL (6.0-8.3) 07/01/18 05:30 Albumin 3.2 gm/dL (4.2-5.5) L 07/01/18 05:30 Globulin 2.9 gm/dL 07/01/18 05:30 Albumin/Globulin Ratio 1.1 (1.0-1.8) 07/01/18 05:30 Triglycerides 83 mg/dL (<150) 06/21/18 00:10 Cholesterol 133 mg/dL (<200) 06/21/18 00:10 LDL Cholesterol Direct 78 mg/dL (75-193) 06/21/18 00:10 HDL Cholesterol 33 mg/dL (23-92) 06/21/18 00:10 TSH 0.51 uIU/ml (0.34-5.60) 06/21/18 00:10 Urine Source RANDOM 06/25/18 00:10 Urine Color YELLOW 06/25/18 00:10 Urine Clarity CLEAR (CLEAR) 06/25/18 00:10 Urine pH 6.0 (4.6 - 8.0) 06/25/18 00:10 Ur Specific Clarinda 1.020 (1.005-1.030) 06/25/18 00:10 Urine Protein NEGATIVE mg/dL (NEGATIVE) 06/25/18 00:10 Urine Glucose (UA) NEGATIVE mg/dL (NEGATIVE) 06/25/18 00:10 Urine Ketones 15 mg/dL (NEGATIVE) H 06/25/18 00:10 Urine Blood NEGATIVE (NEGATIVE) 06/25/18 00:10 Urine Nitrate NEGATIVE (NEGATIVE) 06/25/18 00:10 Urine Bilirubin NEGATIVE (NEGATIVE) 06/25/18 00:10 Urine Ictotest NEGATIVE (NEGATIVE) 06/21/18 02:45 Urine Urobilinogen 0.2 E.U./dL (0.2 - 1.0) 06/25/18 00:10 Ur Leukocyte Esterase NEGATIVE (NEGATIVE) 06/25/18 00:10 Urine RBC 0-2 /hpf (0-5) H 06/21/18 02:45 Urine WBC 0-2 /hpf (0-5) 06/21/18 02:45 Ur Epithelial Cells FEW /lpf (FEW) 06/21/18 02:45 Urine Bacteria OCCASIONAL /hpf (NONE SEEN) 06/21/18 02:45 Urine Mucus MODERATE /lpf (FEW) 06/21/18 02:45 Salicylates < 25.0 mg/L (30.0-100.0) L 06/21/18 00:10 Urine Opiates Screen NEGATIVE (NEGATIVE) 06/21/18 02:45 Urine Methadone Screen NEGATIVE (NEGATIVE) 06/21/18 02:45 Acetaminophen < 10.0 ug/mL (10.0-30.0) L 06/21/18 00:10 Ur Barbiturates Screen NEGATIVE (NEGATIVE) 06/21/18 02:45 Valproic Acid 20.3 ug/mL (50.0-100.0) L 06/26/18 05:45 Ur Tricyclics Screen POSITIVE (NEGATIVE) H 06/21/18 02:45 Ur Phencyclidine Scrn NEGATIVE (NEGATIVE) 06/21/18 02:45 Amphetamines Screen NEGATIVE (NEGATIVE) 06/21/18 02:45 U Methamphetamines Scrn NEGATIVE (NEGATIVE) 06/21/18 02:45 U Benzodiazepines Scrn POSITIVE (NEGATIVE) H 06/21/18 02:45 U Cocaine Metab Screen NEGATIVE (NEGATIVE) 06/21/18 02:45 U Cannabinoids Screen NEGATIVE (NEGATIVE) 06/21/18 02:45 Ethyl Alcohol < 10 mg/dL (0-10) 06/21/18 00:10 RPR NONREACTIVE (NONREACTIVE) 06/21/18 00:10 - Physical Exam Vitals and I&O: Vital Signs Temp 98.0 F 07/01/18 11:51 Pulse 83 07/01/18 11:51 Resp 18 07/01/18 11:51 BP 128/79 07/01/18 11:51 Pulse Ox 99 07/01/18 11:51 Intake & Output 06/30/18 07/01/18 07/01/18 18:59 06:59 18:59 Intake Total 1000 1100 Balance 1000 1100 Weight (lbs) 99.79 kg 98.883 kg Intake: Intake, IV Amount 1000 1100 D5-0.45NS 1,000 ml @ 100 1000 1000 mls/hr IV .Q10H [facility] Rx#: [id number] Levofloxacin 500mg/100mL 100 500 mg In 100 ml @ 100 mls/hr IV Q24HR [facility] Rx#: [id number] Other: # Voids 3 2 # Bowel Movements 0 0 Weight Source Bedscale Bedscale Active Medications: Current Medications Acetaminophen (Tylenol) 650 mg GT Q6HR PRN PRN Reason: Mild Pain or Fever >101 Stop: 08/20/18 08:20 Last Admin: 06/21/18 21:21 Dose: 650 mg Acetaminophen (Tylenol Extra Strength) 1,000 mg GT Q8H PRN PRN Reason: Pain (Moderate) Stop: 08/20/18 08:20 Last Admin: 06/25/18 21:40 Dose: 1,000 mg Albuterol Sulfate (Albuterol 2.5mg/3ml Neb Ud) 2.5 mg HHN BID PRN PRN Reason: Shortness of Breath Last Admin: 06/25/18 23:19 Dose: 2.5 mg Ascorbic Acid (Vitamin C) 500 mg GT DAILY [facility] Stop: 08/20/18 10:59 Last Admin: 07/01/18 08:09 Dose: Not Given Bisacodyl (Dulcolax 10 Mg Supp) 10 mg RC DAILY PRN PRN Reason: Constipation Stop: 08/20/18 08:20 Divalproex Sodium (Depakote Dr) 250 mg PO BID [facility] Stop: 08/25/18 03:29 Last Admin: 07/01/18 08:09 Dose: Not Given Docusate Sodium (Colace) 100 mg GT DAILY [facility] Stop: 08/20/18 10:59 Last Admin: 07/01/18 08:09 Dose: Not Given Ferrous Sulfate (Iron) 450 mg GT DAILY [facility] Stop: 08/20/18 10:59 Last Admin: 07/01/18 08:09 Dose: Not Given Haloperidol Lactate (Haldol) 2 mg IM Q6HR PRN PRN Reason: Agitation Stop: 08/27/18 11:24 Last Admin: 07/01/18 09:01 Dose: 2 mg Heparin Sodium (Porcine) (Heparin) 5,000 units SUBQ Q12H [facility] Stop: 08/20/18 20:59 Last Admin: 06/30/18 22:32 Dose: 5,000 units Hydroxyzine HCl (Atarax) 10 mg GT TID PRN; Protocol PRN Reason: PRURITUS Stop: 08/20/18 08:20 Last Admin: 06/25/18 21:39 Dose: 10 mg Levofloxacin (Levaquin Pb) 500 mg in 100 mls @ 100 mls/hr IV Q24HR [facility] Stop: 08/23/18 14:59 Last Infusion: 06/30/18 19:10 Dose: Infused Dextrose/Sodium Chloride (D5-0.45ns) 1,000 mls @ 100 mls/hr IV .Q10H [facility] Stop: 08/25/18 18:21 Last Admin: 07/01/18 05:28 Dose: 100 mls/hr Insulin Aspart (Novolog Insulin Sliding Scale) 0 units SUBQ ACHS [facility]; Protocol Stop: 08/20/18 11:29 Last Admin: 07/01/18 08:08 Dose: Not Given Lactobacillus Rhamnosus (Culturelle 15b) 1 each GT DAILY [facility] Stop: 08/20/18 10:59 Last Admin: 07/01/18 08:09 Dose: Not Given Lactulose (Cephulac) 30 gm PO Q6HR [facility] Stop: 08/20/18 08:59 Last Admin: 07/01/18 08:07 Dose: Not Given Lorazepam (Ativan) 0.5 mg GT Q6H PRN; Protocol PRN Reason: Anxiety Stop: 08/20/18 08:20 Lorazepam (Ativan) 2 mg IVP Q6HR PRN; Protocol PRN Reason: Agitation Stop: 08/20/18 08:10 Last Admin: 07/01/18 08:53 Dose: 2 mg Lorazepam (Ativan) 1 mg PO TID [facility]; Protocol Stop: 08/22/18 08:59 Last Admin: 07/01/18 08:09 Dose: Not Given Magnesium Hydroxide (Milk Of Magnesia) 30 ml GT HS PRN PRN Reason: Constipation Stop: 08/20/18 08:20 Metronidazole (Flagyl) 500 mg PO BID [facility] Stop: 07/01/18 16:59 Last Admin: 07/01/18 08:10 Dose: Not Given Midodrine (Proamatine) 5 mg GT TID [facility] Stop: 08/20/18 08:59 Last Admin: 07/01/18 08:10 Dose: Not Given Miscellaneous (Vte Chemical Prophylaxis Screen/ Admission) 1 ea MC PRN PRN PRN Reason: PROTOCOL Stop: 08/20/18 12:59 Miscellaneous (Probiotic Screen) 1 ea MC PRN PRN PRN Reason: PROTOCOL Stop: 08/22/18 14:29 Morphine Sulfate (Morphine) 1 mg IVP Q4HR PRN PRN Reason: moderate pain Stop: 08/27/18 11:25 Morphine Sulfate (Morphine) 2 mg IVP Q4HR PRN PRN Reason: Severe Pain Stop: 08/27/18 11:25 Last Admin: 06/28/18 15:14 Dose: 2 mg Pantoprazole Sodium (Protonix) 40 mg GT QDAC [facility] Stop: 08/20/18 11:29 Last Admin: 07/01/18 08:07 Dose: Not Given Pioglitazone HCl (Actos) 15 mg GT DAILY [facility] Stop: 08/20/18 08:59 Last Admin: 07/01/18 08:10 Dose: Not Given Potassium Chloride (Klor-Con) 20 meq PO DAILY [facility] Stop: 08/20/18 08:59 Last Admin: 07/01/18 08:15 Dose: Not Given Quetiapine Fumarate (Seroquel Xr) 200 mg PO BID [facility]; Protocol Stop: 08/22/18 08:59 Last Admin: 07/01/18 08:15 Dose: Not Given Sodium Phosphate (Fleet Enema) 135 ml RC Q48H PRN PRN Reason: Constipation Stop: 08/20/18 08:20 General: no acute distress, well developed, well nourished HEENT: atraumatic, normocephalic, PERRLA, EOMI Neck: supple, no thyromegaly Cardiovascular: S1S2, regular Lungs: clear to auscultation bilaterally, clear to percussion Abdomen: soft, no tender, no distended Extremities: no cyanosis, no clubbing, no edema Neurological: awake, alert, oriented - Procedures Procedures: Procedures Procedure Code Date ASSISTANCE WITH RESPIRATORY VENTILATION, <24 HRS, CPAP [id number] 06/01/18 INSPECTION OF UPPER INTESTINAL TRACT, ENDO [id number] 06/21/18 REMOVAL OF FEEDING DEVICE FROM STOMACH, EXTERNAL APPROACH [id number] 06/21/18 Infectious Disease Assmt/Plan - Problem List Patient Problems: All Active Problems Altered level of consciousness (Acute) R40.4 Diabetes (Acute) E11.9 Encephalopathy (Acute) G93.40 Iron deficiency (Acute) E61.1 Leukocytosis (Acute) D72.829 Osteoarthritis (Acute) M19.90 UTI (urinary tract infection) (Acute) - Assessment Assessment: 1. Leukocytosis. Improved. 2. Psychosis. 3. Seizure d/o. 4. Aspiration pneumonia ( patient failed swallow eval). - Plan Plan: Continue levaquin and flagyl to complete 10 days therapy. Nutritional Asmnt/Malnutr-PDOC - Dietary Evaluation Malnutrition Findings (Please click <Entered> for more info): Nutritional Asmnt/Malnutrition Start: 06/26/18 15: 31 Text: Status: Complete Freq: Protocol: Document 06/26/18 15:31 CONNOR (Rec: 06/26/18 15:46 CONNOR LEONE) Nutritional Asmnt/Malnutrition Patient General Information Nutritional Screening Moderate Risk Diagnosis ALOC, increased ammonia, leukocytosis Pertinent Medical Hx/Surgical Hx PEG/G Tube, ESRD, seizures, PUD/GERD, asthma/COPD, status post CVA and TIA, bipolar disorder, GERD, MRSA, gastritis, HTN, DM, status post cellulitis Subjective Information Pt sleeping at time of visit. Pt placed on NPO status after pt failed swallow eval today. Per nurse notes: pt was eating well and PO intake 75% prior to swallow eval. Pt had PEG tube and removed on 06/24. Per ST note, will reassess tommorrow 06/27. Current Diet Order/ Nutrition Support NPO Pertinent Medications novolog, culturelle, colace, iron, heparin, Vit C, dulcolax , protonix, klor-con, seroquel Xr, levaquin, Pertinent Labs 06/26: glucose 119, POC 109- 129 06/25: glucose 117, POC 108-130 Nutritional Hx/Data Height 1.68 m Height (Calculated Centimeters) 167.6 Current Weight (lbs) 86.183 kg Weight (Calculated Kilograms) 86.2 Weight (Calculated Grams) 18555.6 [place] Body Weight 142 lb Body Mass Index (BMI) 30.7 Weight Status Obese GI Symptoms GI Symptoms None Last BM 06/26 Difficult in: Swallowing Food Allergies No Skin Integrity/Comment: PEG removed, gastrostomy skin intact elizabeth 16 Current %PO Good (75-100%) Estimated Nutritional Goals BEE in Kcals: Adj wt of IBW Calories/Kcals/Kg 25-30 (based on adj wt 70 kg) Kcals Calculated 8104-0721 Protein: Adj wt of IBW Protein g/k (based on adj wt 70 kg) Protein Calculated 70 g Fluid: ml 2826-5626 (1 ml/kcal) Nutritional Problem 1. Problem Problem inadequate energy intake Etiology swallowing impairment Signs/Symptoms: NPO status after swallow eval and no alternate route of nutrition in place Malnutrition Alert Is there a minimum of two criteria No selected? Query Text:Check all the applicable criteria. A minimum of two criteria are recommended for diagnosis of either severe or non-severe malnutrition. Malnutrition Related to Morbid Obesity Malnutrition related to morbid obesity No Intervention/Recommendation Comments 1. Monitor NPO status. Consider alternate route of nutrition if pt unable to tolerate PO intake after swallow eval 06/27 2. Monitor wt, labs, and skin integrity 3. F/U as high risk in 2-3 days, 06/28-06/29 Expected Outcomes/Goals Expected Outcomes/Goals 1. Pt to meet at least 75% of nutritional needs from route of nutrition per ST 2. Wt stability, skin to remain intact, labs to approach WNL. Reviewed by Zoe Marsh RD
[2018-07-01] MEDS: Morphine Sulfate 2 mg/mL 1mL Syr IVP PRN (13:27)
--- NOTE | 2018-07-01 15:25 | Internal Medicine Prog Note ---
Internal Medicine Subjective - Subjective Patient is:: awake, verbal, other (improving,less irritable ,more compliant ) Patient Complaints of:: other (no fever, no change) Per staff patient has:: tolerating meds Internal Medicine Objective - Results Result Diagrams: 07/01/18 05:30 07/01/18 05:30 Recent Labs: Laboratory Last Values WBC 8.2 Th/cmm (4.8-10.8) 07/01/18 05:30 RBC 4.54 Mil/cmm (4.30-5.70) 07/01/18 05:30 Hgb 13.0 gm/dL (12-16) 07/01/18 05:30 Hct 39.3 % (41.0-60) L 07/01/18 05:30 MCV 86.5 fl (80-99) 07/01/18 05:30 MCH 28.6 pg (26.0-30.0) 07/01/18 05:30 MCHC Differential 33.0 pg (28.0-36.0) 07/01/18 05:30 RDW 15.6 % (11.5-20.0) 07/01/18 05:30 Plt Count 323 Th/cmm (150-400) 07/01/18 05:30 MPV 6.7 fl 07/01/18 05:30 Neutrophils % 54.6 % (40.0-80.0) 07/01/18 05:30 Band Neutrophils % 3 % (0-10) 06/26/18 05:45 Lymphocytes % 25.9 % (20.0-50.0) 07/01/18 05:30 Monocytes % 7.2 % (2.0-10.0) 07/01/18 05:30 Eosinophils % 12.2 % (0.0-5.0) H 07/01/18 05:30 Basophils % 0.1 % (0.0-2.0) 07/01/18 05:30 Neutrophils (Manual) 81 % (40-80) H 06/26/18 05:45 Lymphocytes 6 % (20-50) L 06/26/18 05:45 Monocytes 3 % (2-10) 06/26/18 05:45 Eosinophils 7 % (0-5) H 06/26/18 05:45 PT 10.7 SECONDS (9.5-11.5) 07/01/18 05:30 INR 1.03 (0.5-1.4) 07/01/18 05:30 PTT (Actin FS) 23.3 SECONDS (26.0-38.0) L 06/24/18 06:10 Sodium 139 mEq/L (136-145) 07/01/18 05:30 Potassium 3.5 mEq/L (3.5-5.1) 07/01/18 05:30 Chloride 107 mEq/L (98-107) 07/01/18 05:30 Carbon Dioxide 26.8 mEq/L (21.0-31.0) 07/01/18 05:30 Anion Gap 8.7 (7.0-16.0) 07/01/18 05:30 BUN 5 mg/dL (7-25) L 07/01/18 05:30 Creatinine 0.7 mg/dL (0.7-1.3) 07/01/18 05:30 Est GFR ( Amer) > 60.0 ml/min (>90) 07/01/18 05:30 Est GFR (Non-Af Amer) > 60.0 ml/min 07/01/18 05:30 BUN/Creatinine Ratio 7.1 07/01/18 05:30 Glucose 129 mg/dL (70-105) H 07/01/18 05:30 POC Glucose 98 MG/DL (70 - 105) 07/01/18 12:06 Whole Bld Lactic Acid 0.89 mmol/L (0.60-1.99) 06/21/18 00:10 Calcium 8.8 mg/dL (8.6-10.3) 07/01/18 05:30 Total Bilirubin 0.4 mg/dL (0.3-1.0) 07/01/18 05:30 AST 24 U/L (13-39) 07/01/18 05:30 ALT 21 U/L (7-52) 07/01/18 05:30 Alkaline Phosphatase 92 U/L (34-104) 07/01/18 05:30 Ammonia 50 umol/L (16-53) 06/26/18 12:18 Total Protein 6.1 gm/dL (6.0-8.3) 07/01/18 05:30 Albumin 3.2 gm/dL (4.2-5.5) L 07/01/18 05:30 Globulin 2.9 gm/dL 07/01/18 05:30 Albumin/Globulin Ratio 1.1 (1.0-1.8) 07/01/18 05:30 Triglycerides 83 mg/dL (<150) 06/21/18 00:10 Cholesterol 133 mg/dL (<200) 06/21/18 00:10 LDL Cholesterol Direct 78 mg/dL (75-193) 06/21/18 00:10 HDL Cholesterol 33 mg/dL (23-92) 06/21/18 00:10 TSH 0.51 uIU/ml (0.34-5.60) 06/21/18 00:10 Urine Source RANDOM 06/25/18 00:10 Urine Color YELLOW 06/25/18 00:10 Urine Clarity CLEAR (CLEAR) 06/25/18 00:10 Urine pH 6.0 (4.6 - 8.0) 06/25/18 00:10 Ur Specific [place] 1.020 (1.005-1.030) 06/25/18 00:10 Urine Protein NEGATIVE mg/dL (NEGATIVE) 06/25/18 00:10 Urine Glucose (UA) NEGATIVE mg/dL (NEGATIVE) 06/25/18 00:10 Urine Ketones 15 mg/dL (NEGATIVE) H 06/25/18 00:10 Urine Blood NEGATIVE (NEGATIVE) 06/25/18 00:10 Urine Nitrate NEGATIVE (NEGATIVE) 06/25/18 00:10 Urine Bilirubin NEGATIVE (NEGATIVE) 06/25/18 00:10 Urine Ictotest NEGATIVE (NEGATIVE) 06/21/18 02:45 Urine Urobilinogen 0.2 E.U./dL (0.2 - 1.0) 06/25/18 00:10 Ur Leukocyte Esterase NEGATIVE (NEGATIVE) 06/25/18 00:10 Urine RBC 0-2 /hpf (0-5) H 06/21/18 02:45 Urine WBC 0-2 /hpf (0-5) 06/21/18 02:45 Ur Epithelial Cells FEW /lpf (FEW) 06/21/18 02:45 Urine Bacteria OCCASIONAL /hpf (NONE SEEN) 06/21/18 02:45 Urine Mucus MODERATE /lpf (FEW) 06/21/18 02:45 Salicylates < 25.0 mg/L (30.0-100.0) L 06/21/18 00:10 Urine Opiates Screen NEGATIVE (NEGATIVE) 06/21/18 02:45 Urine Methadone Screen NEGATIVE (NEGATIVE) 06/21/18 02:45 Acetaminophen < 10.0 ug/mL (10.0-30.0) L 06/21/18 00:10 Ur Barbiturates Screen NEGATIVE (NEGATIVE) 06/21/18 02:45 Valproic Acid 20.3 ug/mL (50.0-100.0) L 06/26/18 05:45 Ur Tricyclics Screen POSITIVE (NEGATIVE) H 06/21/18 02:45 Ur Phencyclidine Scrn NEGATIVE (NEGATIVE) 06/21/18 02:45 Amphetamines Screen NEGATIVE (NEGATIVE) 06/21/18 02:45 U Methamphetamines Scrn NEGATIVE (NEGATIVE) 06/21/18 02:45 U Benzodiazepines Scrn POSITIVE (NEGATIVE) H 06/21/18 02:45 U Cocaine Metab Screen NEGATIVE (NEGATIVE) 06/21/18 02:45 U Cannabinoids Screen NEGATIVE (NEGATIVE) 06/21/18 02:45 Ethyl Alcohol < 10 mg/dL (0-10) 06/21/18 00:10 RPR NONREACTIVE (NONREACTIVE) 06/21/18 00:10 - Physical Exam Vitals and I&O: Vital Signs Temp 98.0 F 07/01/18 12:00 Pulse 83 07/01/18 12:00 Resp 18 07/01/18 12:00 BP 128/79 07/01/18 12:00 Pulse Ox 99 07/01/18 11:51 Intake & Output 06/30/18 07/01/18 07/01/18 18:59 06:59 18:59 Intake Total 1000 1100 Balance 1000 1100 Weight (lbs) 99.79 kg 98.883 kg Intake: Intake, IV Amount 1000 1100 D5-0.45NS 1,000 ml @ 100 1000 1000 mls/hr IV .Q10H [facility] Rx#: [id number] Levofloxacin 500mg/100mL 100 500 mg In 100 ml @ 100 mls/hr IV Q24HR [facility] Rx#: [id number] Other: # Voids 3 2 # Bowel Movements 0 0 Weight Source Bedscale Bedscale Active Medications: Current Medications Acetaminophen (Tylenol) 650 mg GT Q6HR PRN PRN Reason: Mild Pain or Fever >101 Stop: 08/20/18 08:20 Last Admin: 06/21/18 21:21 Dose: 650 mg Acetaminophen (Tylenol Extra Strength) 1,000 mg GT Q8H PRN PRN Reason: Pain (Moderate) Stop: 08/20/18 08:20 Last Admin: 06/25/18 21:40 Dose: 1,000 mg Albuterol Sulfate (Albuterol 2.5mg/3ml Neb Ud) 2.5 mg HHN BID PRN PRN Reason: Shortness of Breath Last Admin: 06/25/18 23:19 Dose: 2.5 mg Ascorbic Acid (Vitamin C) 500 mg GT DAILY [facility] Stop: 08/20/18 10:59 Last Admin: 07/01/18 08:09 Dose: Not Given Bisacodyl (Dulcolax 10 Mg Supp) 10 mg RC DAILY PRN PRN Reason: Constipation Stop: 08/20/18 08:20 Divalproex Sodium (Depakote Dr) 250 mg PO BID [facility] Stop: 08/25/18 03:29 Last Admin: 07/01/18 08:09 Dose: Not Given Docusate Sodium (Colace) 100 mg GT DAILY [facility] Stop: 08/20/18 10:59 Last Admin: 07/01/18 08:09 Dose: Not Given Ferrous Sulfate (Iron) 450 mg GT DAILY [facility] Stop: 08/20/18 10:59 Last Admin: 07/01/18 08:09 Dose: Not Given Haloperidol Lactate (Haldol) 2 mg IM Q6HR PRN PRN Reason: Agitation Stop: 08/27/18 11:24 Last Admin: 07/01/18 09:01 Dose: 2 mg Heparin Sodium (Porcine) (Heparin) 5,000 units SUBQ Q12H [facility] Stop: 08/20/18 20:59 Last Admin: 07/01/18 13:27 Dose: 5,000 units Hydroxyzine HCl (Atarax) 10 mg GT TID PRN; Protocol PRN Reason: PRURITUS Stop: 08/20/18 08:20 Last Admin: 06/25/18 21:39 Dose: 10 mg Levofloxacin (Levaquin Pb) 500 mg in 100 mls @ 100 mls/hr IV Q24HR [facility] Stop: 08/23/18 14:59 Last Infusion: 06/30/18 19:10 Dose: Infused Dextrose/Sodium Chloride (D5-0.45ns) 1,000 mls @ 100 mls/hr IV .Q10H [facility] Stop: 08/25/18 18:21 Last Admin: 07/01/18 05:28 Dose: 100 mls/hr Insulin Aspart (Novolog Insulin Sliding Scale) 0 units SUBQ ACHS [facility]; Protocol Stop: 08/20/18 11:29 Last Admin: 07/01/18 12:34 Dose: Not Given Lactobacillus Rhamnosus (Culturelle 15b) 1 each GT DAILY [facility] Stop: 08/20/18 10:59 Last Admin: 07/01/18 08:09 Dose: Not Given Lactulose (Cephulac) 30 gm PO Q6HR [facility] Stop: 08/20/18 08:59 Last Admin: 07/01/18 13:55 Dose: Not Given Lorazepam (Ativan) 0.5 mg GT Q6H PRN; Protocol PRN Reason: Anxiety Stop: 08/20/18 08:20 Lorazepam (Ativan) 2 mg IVP Q6HR PRN; Protocol PRN Reason: Agitation Stop: 08/20/18 08:10 Last Admin: 07/01/18 13:18 Dose: 2 mg Lorazepam (Ativan) 1 mg PO TID [facility]; Protocol Stop: 08/22/18 08:59 Last Admin: 07/01/18 13:55 Dose: Not Given Magnesium Hydroxide (Milk Of Magnesia) 30 ml GT HS PRN PRN Reason: Constipation Stop: 08/20/18 08:20 Metronidazole (Flagyl) 500 mg PO BID [facility] Stop: 07/01/18 16:59 Last Admin: 07/01/18 08:10 Dose: Not Given Midodrine (Proamatine) 5 mg GT TID [facility] Stop: 08/20/18 08:59 Last Admin: 07/01/18 13:55 Dose: Not Given Miscellaneous (Vte Chemical Prophylaxis Screen/ Admission) 1 ea [facility] PRN PRN PRN Reason: PROTOCOL Stop: 08/20/18 12:59 Miscellaneous (Probiotic Screen) 1 ea MC PRN PRN PRN Reason: PROTOCOL Stop: 08/22/18 14:29 Morphine Sulfate (Morphine) 1 mg IVP Q4HR PRN PRN Reason: moderate pain Stop: 08/27/18 11:25 Morphine Sulfate (Morphine) 2 mg IVP Q4HR PRN PRN Reason: Severe Pain Stop: 08/27/18 11:25 Last Admin: 07/01/18 13:27 Dose: 2 mg Pantoprazole Sodium (Protonix) 40 mg GT QDAC [facility] Stop: 08/20/18 11:29 Last Admin: 07/01/18 08:07 Dose: Not Given Pioglitazone HCl (Actos) 15 mg GT DAILY [facility] Stop: 08/20/18 08:59 Last Admin: 07/01/18 08:10 Dose: Not Given Potassium Chloride (Klor-Con) 20 meq PO DAILY [facility] Stop: 08/20/18 08:59 Last Admin: 07/01/18 08:15 Dose: Not Given Quetiapine Fumarate (Seroquel Xr) 200 mg PO BID [facility]; Protocol Stop: 08/22/18 08:59 Last Admin: 07/01/18 08:15 Dose: Not Given Sodium Phosphate (Fleet Enema) 135 ml RC Q48H PRN PRN Reason: Constipation Stop: 08/20/18 08:20 General: alert HEENT: NC/AT, PERRLA Neck: Supple Lungs: CTAB Cardiovascular: RRR, Normal S1, Normal S2, without murmur Abdomen: soft, non-tender, non-distended Neurological: alert - Procedures Procedures: Procedures Procedure Code Date ASSISTANCE WITH RESPIRATORY VENTILATION, <24 HRS, CPAP [id number] 06/01/18 INSPECTION OF UPPER INTESTINAL TRACT, ENDO [id number] 06/21/18 REMOVAL OF FEEDING DEVICE FROM STOMACH, EXTERNAL APPROACH [id number] 06/21/18 Internal Medicine Assmt/Plan - Assessment Assessment: aloc acute uti htn dm copd esrd seizure disorder - Plan Plan: HOLD DISCHARGE monitor vitals/diet labs Nutritional Asmnt/Malnutr-PDOC - Dietary Evaluation Malnutrition Findings (Please click <Entered> for more info): Nutritional Asmnt/Malnutrition Start: 06/26/18 15: 31 Text: Status: Complete Freq: Protocol: Document 06/26/18 15:31 CONNOR (Rec: 06/26/18 15:46 CONNOR LEONE) Nutritional Asmnt/Malnutrition Patient General Information Nutritional Screening Moderate Risk Diagnosis ALOC, increased ammonia, leukocytosis Pertinent Medical Hx/Surgical Hx PEG/G Tube, ESRD, seizures, PUD/GERD, asthma/COPD, status post CVA and TIA, bipolar disorder, GERD, MRSA, gastritis, HTN, DM, status post cellulitis Subjective Information Pt sleeping at time of visit. Pt placed on NPO status after pt failed swallow eval today. Per nurse notes: pt was eating well and PO intake 75% prior to swallow eval. Pt had PEG tube and removed on 06/24. Per ST note, will reassess tommorrow 06/27. Current Diet Order/ Nutrition Support NPO Pertinent Medications novolog, culturelle, colace, iron, heparin, Vit C, dulcolax , protonix, klor-con, seroquel Xr, levaquin, Pertinent Labs 06/26: glucose 119, POC 109- 129 06/25: glucose 117, POC 108-130 Nutritional Hx/Data Height 1.68 m Height (Calculated Centimeters) 167.6 Current Weight (lbs) 86.183 kg Weight (Calculated Kilograms) 86.2 Weight (Calculated Grams) 46871.6 [place] Body Weight 142 lb Body Mass Index (BMI) 30.7 Weight Status Obese GI Symptoms GI Symptoms None Last BM 06/26 Difficult in: Swallowing Food Allergies No Skin Integrity/Comment: PEG removed, gastrostomy skin intact elizabeth 16 Current %PO Good (75-100%) Estimated Nutritional Goals BEE in Kcals: Adj wt of IBW Calories/Kcals/Kg 25-30 (based on adj wt 70 kg) Kcals Calculated [id number] Protein: Adj wt of IBW Protein g/k (based on adj wt 70 kg) Protein Calculated 70 g Fluid: ml [id number] (1 ml/kcal) Nutritional Problem 1. Problem Problem inadequate energy intake Etiology swallowing impairment Signs/Symptoms: NPO status after swallow eval and no alternate route of nutrition in place Malnutrition Alert Is there a minimum of two criteria No selected? Query Text:Check all the applicable criteria. A minimum of two criteria are recommended for diagnosis of either severe or non-severe malnutrition. Malnutrition Related to Morbid Obesity Malnutrition related to morbid obesity No Intervention/Recommendation Comments 1. Monitor NPO status. Consider alternate route of nutrition if pt unable to tolerate PO intake after swallow eval 06/27 2. Monitor wt, labs, and skin integrity 3. F/U as high risk in 2-3 days, 06/28-06/29 Expected Outcomes/Goals Expected Outcomes/Goals 1. Pt to meet at least 75% of nutritional needs from route of nutrition per ST 2. Wt stability, skin to remain intact, labs to approach WNL. Reviewed by Zoe Marsh RD
[2018-07-01] MEDS: Levofloxacin 500mg/100mL 500 MG/100 ML BAG IV SCH (15:40)
--- NOTE | 2018-07-01 15:47 | GI Progress Note ---
Subjective - Review of Systems Service Date: 07/01/18 Events since last encounter: No events Subjective: confused Objective - Results Result Diagrams: 07/01/18 05:30 07/01/18 05:30 Recent Labs: Laboratory Last Values WBC 8.2 Th/cmm (4.8-10.8) 07/01/18 05:30 RBC 4.54 Mil/cmm (4.30-5.70) 07/01/18 05:30 Hgb 13.0 gm/dL (12-16) 07/01/18 05:30 Hct 39.3 % (41.0-60) L 07/01/18 05:30 MCV 86.5 fl (80-99) 07/01/18 05:30 MCH 28.6 pg (26.0-30.0) 07/01/18 05:30 MCHC Differential 33.0 pg (28.0-36.0) 07/01/18 05:30 RDW 15.6 % (11.5-20.0) 07/01/18 05:30 Plt Count 323 Th/cmm (150-400) 07/01/18 05:30 MPV 6.7 fl 07/01/18 05:30 Neutrophils % 54.6 % (40.0-80.0) 07/01/18 05:30 Band Neutrophils % 3 % (0-10) 06/26/18 05:45 Lymphocytes % 25.9 % (20.0-50.0) 07/01/18 05:30 Monocytes % 7.2 % (2.0-10.0) 07/01/18 05:30 Eosinophils % 12.2 % (0.0-5.0) H 07/01/18 05:30 Basophils % 0.1 % (0.0-2.0) 07/01/18 05:30 Neutrophils (Manual) 81 % (40-80) H 06/26/18 05:45 Lymphocytes 6 % (20-50) L 06/26/18 05:45 Monocytes 3 % (2-10) 06/26/18 05:45 Eosinophils 7 % (0-5) H 06/26/18 05:45 PT 10.7 SECONDS (9.5-11.5) 07/01/18 05:30 INR 1.03 (0.5-1.4) 07/01/18 05:30 PTT (Actin FS) 23.3 SECONDS (26.0-38.0) L 06/24/18 06:10 Sodium 139 mEq/L (136-145) 07/01/18 05:30 Potassium 3.5 mEq/L (3.5-5.1) 07/01/18 05:30 Chloride 107 mEq/L (98-107) 07/01/18 05:30 Carbon Dioxide 26.8 mEq/L (21.0-31.0) 07/01/18 05:30 Anion Gap 8.7 (7.0-16.0) 07/01/18 05:30 BUN 5 mg/dL (7-25) L 07/01/18 05:30 Creatinine 0.7 mg/dL (0.7-1.3) 07/01/18 05:30 Est GFR ( Amer) > 60.0 ml/min (>90) 07/01/18 05:30 Est GFR (Non-Af Amer) > 60.0 ml/min 07/01/18 05:30 BUN/Creatinine Ratio 7.1 07/01/18 05:30 Glucose 129 mg/dL (70-105) H 07/01/18 05:30 POC Glucose 98 MG/DL (70 - 105) 07/01/18 12:06 Whole Bld Lactic Acid 0.89 mmol/L (0.60-1.99) 06/21/18 00:10 Calcium 8.8 mg/dL (8.6-10.3) 07/01/18 05:30 Total Bilirubin 0.4 mg/dL (0.3-1.0) 07/01/18 05:30 AST 24 U/L (13-39) 07/01/18 05:30 ALT 21 U/L (7-52) 07/01/18 05:30 Alkaline Phosphatase 92 U/L (34-104) 07/01/18 05:30 Ammonia 50 umol/L (16-53) 06/26/18 12:18 Total Protein 6.1 gm/dL (6.0-8.3) 07/01/18 05:30 Albumin 3.2 gm/dL (4.2-5.5) L 07/01/18 05:30 Globulin 2.9 gm/dL 07/01/18 05:30 Albumin/Globulin Ratio 1.1 (1.0-1.8) 07/01/18 05:30 Triglycerides 83 mg/dL (<150) 06/21/18 00:10 Cholesterol 133 mg/dL (<200) 06/21/18 00:10 LDL Cholesterol Direct 78 mg/dL (75-193) 06/21/18 00:10 HDL Cholesterol 33 mg/dL (23-92) 06/21/18 00:10 TSH 0.51 uIU/ml (0.34-5.60) 06/21/18 00:10 Urine Source RANDOM 06/25/18 00:10 Urine Color YELLOW 06/25/18 00:10 Urine Clarity CLEAR (CLEAR) 06/25/18 00:10 Urine pH 6.0 (4.6 - 8.0) 06/25/18 00:10 Ur Specific [place] 1.020 (1.005-1.030) 06/25/18 00:10 Urine Protein NEGATIVE mg/dL (NEGATIVE) 06/25/18 00:10 Urine Glucose (UA) NEGATIVE mg/dL (NEGATIVE) 06/25/18 00:10 Urine Ketones 15 mg/dL (NEGATIVE) H 06/25/18 00:10 Urine Blood NEGATIVE (NEGATIVE) 06/25/18 00:10 Urine Nitrate NEGATIVE (NEGATIVE) 06/25/18 00:10 Urine Bilirubin NEGATIVE (NEGATIVE) 06/25/18 00:10 Urine Ictotest NEGATIVE (NEGATIVE) 06/21/18 02:45 Urine Urobilinogen 0.2 E.U./dL (0.2 - 1.0) 06/25/18 00:10 Ur Leukocyte Esterase NEGATIVE (NEGATIVE) 06/25/18 00:10 Urine RBC 0-2 /hpf (0-5) H 06/21/18 02:45 Urine WBC 0-2 /hpf (0-5) 06/21/18 02:45 Ur Epithelial Cells FEW /lpf (FEW) 06/21/18 02:45 Urine Bacteria OCCASIONAL /hpf (NONE SEEN) 06/21/18 02:45 Urine Mucus MODERATE /lpf (FEW) 06/21/18 02:45 Salicylates < 25.0 mg/L (30.0-100.0) L 06/21/18 00:10 Urine Opiates Screen NEGATIVE (NEGATIVE) 06/21/18 02:45 Urine Methadone Screen NEGATIVE (NEGATIVE) 06/21/18 02:45 Acetaminophen < 10.0 ug/mL (10.0-30.0) L 06/21/18 00:10 Ur Barbiturates Screen NEGATIVE (NEGATIVE) 06/21/18 02:45 Valproic Acid 20.3 ug/mL (50.0-100.0) L 06/26/18 05:45 Ur Tricyclics Screen POSITIVE (NEGATIVE) H 06/21/18 02:45 Ur Phencyclidine Scrn NEGATIVE (NEGATIVE) 06/21/18 02:45 Amphetamines Screen NEGATIVE (NEGATIVE) 06/21/18 02:45 U Methamphetamines Scrn NEGATIVE (NEGATIVE) 06/21/18 02:45 U Benzodiazepines Scrn POSITIVE (NEGATIVE) H 06/21/18 02:45 U Cocaine Metab Screen NEGATIVE (NEGATIVE) 06/21/18 02:45 U Cannabinoids Screen NEGATIVE (NEGATIVE) 06/21/18 02:45 Ethyl Alcohol < 10 mg/dL (0-10) 06/21/18 00:10 RPR NONREACTIVE (NONREACTIVE) 06/21/18 00:10 - Physical Exam Vitals and I&O: Vital Signs Temp 98.0 F 07/01/18 12:00 Pulse 83 07/01/18 12:00 Resp 18 07/01/18 12:00 BP 128/79 07/01/18 12:00 Pulse Ox 99 07/01/18 11:51 Intake & Output 06/30/18 07/01/18 07/01/18 18:59 06:59 18:59 Intake Total 1000 1100 Balance 1000 1100 Weight (lbs) 99.79 kg 98.883 kg Intake: Intake, IV Amount 1000 1100 D5-0.45NS 1,000 ml @ 100 1000 1000 mls/hr IV .Q10H [facility] Rx#: [id number] Levofloxacin 500mg/100mL 100 500 mg In 100 ml @ 100 mls/hr IV Q24HR [facility] Rx#: [id number] Other: # Voids 3 2 # Bowel Movements 0 0 Weight Source Bedscale Bedscale Active Medications: Current Medications Acetaminophen (Tylenol) 650 mg GT Q6HR PRN PRN Reason: Mild Pain or Fever >101 Stop: 08/20/18 08:20 Last Admin: 06/21/18 21:21 Dose: 650 mg Acetaminophen (Tylenol Extra Strength) 1,000 mg GT Q8H PRN PRN Reason: Pain (Moderate) Stop: 08/20/18 08:20 Last Admin: 06/25/18 21:40 Dose: 1,000 mg Albuterol Sulfate (Albuterol 2.5mg/3ml Neb Ud) 2.5 mg HHN BID PRN PRN Reason: Shortness of Breath Last Admin: 06/25/18 23:19 Dose: 2.5 mg Ascorbic Acid (Vitamin C) 500 mg GT DAILY [facility] Stop: 08/20/18 10:59 Last Admin: 07/01/18 08:09 Dose: Not Given Bisacodyl (Dulcolax 10 Mg Supp) 10 mg RC DAILY PRN PRN Reason: Constipation Stop: 08/20/18 08:20 Divalproex Sodium (Depakote Dr) 250 mg PO BID [facility] Stop: 08/25/18 03:29 Last Admin: 07/01/18 08:09 Dose: Not Given Docusate Sodium (Colace) 100 mg GT DAILY [facility] Stop: 08/20/18 10:59 Last Admin: 07/01/18 08:09 Dose: Not Given Ferrous Sulfate (Iron) 450 mg GT DAILY [facility] Stop: 08/20/18 10:59 Last Admin: 07/01/18 08:09 Dose: Not Given Haloperidol Lactate (Haldol) 2 mg IM Q6HR PRN PRN Reason: Agitation Stop: 08/27/18 11:24 Last Admin: 07/01/18 09:01 Dose: 2 mg Heparin Sodium (Porcine) (Heparin) 5,000 units SUBQ Q12H [facility] Stop: 08/20/18 20:59 Last Admin: 07/01/18 13:27 Dose: 5,000 units Hydroxyzine HCl (Atarax) 10 mg GT TID PRN; Protocol PRN Reason: PRURITUS Stop: 08/20/18 08:20 Last Admin: 06/25/18 21:39 Dose: 10 mg Levofloxacin (Levaquin Pb) 500 mg in 100 mls @ 100 mls/hr IV Q24HR [facility] Stop: 08/23/18 14:59 Last Admin: 07/01/18 15:40 Dose: 100 mls/hr Dextrose/Sodium Chloride (D5-0.45ns) 1,000 mls @ 100 mls/hr IV .Q10H [facility] Stop: 08/25/18 18:21 Last Admin: 07/01/18 05:28 Dose: 100 mls/hr Insulin Aspart (Novolog Insulin Sliding Scale) 0 units SUBQ ACHS [facility]; Protocol Stop: 08/20/18 11:29 Last Admin: 07/01/18 12:34 Dose: Not Given Lactobacillus Rhamnosus (Culturelle 15b) 1 each GT DAILY [facility] Stop: 08/20/18 10:59 Last Admin: 07/01/18 08:09 Dose: Not Given Lactulose (Cephulac) 30 gm PO Q6HR [facility] Stop: 08/20/18 08:59 Last Admin: 07/01/18 13:55 Dose: Not Given Lorazepam (Ativan) 0.5 mg GT Q6H PRN; Protocol PRN Reason: Anxiety Stop: 08/20/18 08:20 Lorazepam (Ativan) 2 mg IVP Q6HR PRN; Protocol PRN Reason: Agitation Stop: 08/20/18 08:10 Last Admin: 07/01/18 13:18 Dose: 2 mg Lorazepam (Ativan) 1 mg PO TID [facility]; Protocol Stop: 08/22/18 08:59 Last Admin: 07/01/18 13:55 Dose: Not Given Magnesium Hydroxide (Milk Of Magnesia) 30 ml GT HS PRN PRN Reason: Constipation Stop: 08/20/18 08:20 Metronidazole (Flagyl) 500 mg PO BID [facility] Stop: 07/01/18 16:59 Last Admin: 07/01/18 08:10 Dose: Not Given Midodrine (Proamatine) 5 mg GT TID [facility] Stop: 08/20/18 08:59 Last Admin: 07/01/18 13:55 Dose: Not Given Miscellaneous (Vte Chemical Prophylaxis Screen/ Admission) 1 ea [facility] PRN PRN PRN Reason: PROTOCOL Stop: 08/20/18 12:59 Miscellaneous (Probiotic Screen) 1 ea [facility] PRN PRN PRN Reason: PROTOCOL Stop: 08/22/18 14:29 Morphine Sulfate (Morphine) 1 mg IVP Q4HR PRN PRN Reason: moderate pain Stop: 08/27/18 11:25 Morphine Sulfate (Morphine) 2 mg IVP Q4HR PRN PRN Reason: Severe Pain Stop: 08/27/18 11:25 Last Admin: 10/15/18 13:27 Dose: 2 mg Pantoprazole Sodium (Protonix) 40 mg GT QDAC [facility] Stop: 08/20/18 11:29 Last Admin: 07/01/18 08:07 Dose: Not Given Pioglitazone HCl (Actos) 15 mg GT DAILY [facility] Stop: 08/20/18 08:59 Last Admin: 07/01/18 08:10 Dose: Not Given Potassium Chloride (Klor-Con) 20 meq PO DAILY [facility] Stop: 08/20/18 08:59 Last Admin: 07/01/18 08:15 Dose: Not Given Quetiapine Fumarate (Seroquel Xr) 200 mg PO BID [facility]; Protocol Stop: 08/22/18 08:59 Last Admin: 07/01/18 08:15 Dose: Not Given Sodium Phosphate (Fleet Enema) 135 ml RC Q48H PRN PRN Reason: Constipation Stop: 08/20/18 08:20 General: No acute distress, Other (confused) Cardiovascular: Regular rate, Normal S1, Normal S2 Lungs: Clear to auscultation, Normal air movement Abdomen: Bowel sounds (normal), Soft, Other (Site of G tube is clean) - Procedures Procedures: Procedures Procedure Code Date ASSISTANCE WITH RESPIRATORY VENTILATION, <24 HRS, CPAP [id number] 06/01/18 INSPECTION OF UPPER INTESTINAL TRACT, ENDO [id number] 06/21/18 REMOVAL OF FEEDING DEVICE FROM STOMACH, EXTERNAL APPROACH [id number] 06/21/18 Assessment/Plan - Problem List Patient Problems: All Active Problems Altered level of consciousness (Acute) R40.4 Diabetes (Acute) E11.9 Encephalopathy (Acute) G93.40 Iron deficiency (Acute) E61.1 Leukocytosis (Acute) D72.829 Osteoarthritis (Acute) M19.90 UTI (urinary tract infection) (Acute) - Assessment Assessment: Dysphagia - Plan Plan: Dysphagia Has Improved and G tube was removed but now aspirating and failed swallowing eval PEG when consent is available
[2018-07-02] MEDS: Haloperidol Lactate 5 mg/mL 1mL Vial IM PRN (00:17)
[2018-07-02] MEDS: D5-0.45NS 1,000 ML IV SCH (00:32)
[2018-07-02] MEDS: Lactulose 10 Gm/15 mL 30mL UDC PO SCH ×3 (05:20→12:18)
[2018-07-02] MEDS: INSULIN ASPART SLIDING SCALE 100 UNITS/ML UNIT SUBQ SCH ×2 (06:36→11:45)
[2018-07-02] MEDS: Ferrous Sulfate 300 MG/5 ML UDC GT SCH (08:41)
[2018-07-02] MEDS: Docusate Sodium 100 mg/10 mL UD GT SCH (08:41)
[2018-07-02] MEDS: Lactobacillus Rhamnosus GG 15 Billion CFU CAP.SPRINK GT SCH (08:41)
[2018-07-02] MEDS: Potassium Chloride 20 mEq ER Tab PO SCH (08:42)
[2018-07-02] MEDS: Pantoprazole 40 mg/Packet GT SCH (08:42)
--- NOTE | 2018-07-02 10:05 | GI Progress Note ---
Subjective - Review of Systems Service Date: 07/02/18 Subjective: PASSED SWALLOW EVAL - DIONICIO ORAL DIET - ATE 100% MEAL THIS AM. Objective - Results Result Diagrams: 07/01/18 05:30 07/01/18 05:30 Recent Labs: Laboratory Last Values WBC 8.2 Th/cmm (4.8-10.8) 07/01/18 05:30 RBC 4.54 Mil/cmm (4.30-5.70) 07/01/18 05:30 Hgb 13.0 gm/dL (12-16) 07/01/18 05:30 Hct 39.3 % (41.0-60) L 07/01/18 05:30 MCV 86.5 fl (80-99) 07/01/18 05:30 MCH 28.6 pg (26.0-30.0) 07/01/18 05:30 MCHC Differential 33.0 pg (28.0-36.0) 07/01/18 05:30 RDW 15.6 % (11.5-20.0) 07/01/18 05:30 Plt Count 323 Th/cmm (150-400) 07/01/18 05:30 MPV 6.7 fl 07/01/18 05:30 Neutrophils % 54.6 % (40.0-80.0) 07/01/18 05:30 Band Neutrophils % 3 % (0-10) 06/26/18 05:45 Lymphocytes % 25.9 % (20.0-50.0) 07/01/18 05:30 Monocytes % 7.2 % (2.0-10.0) 07/01/18 05:30 Eosinophils % 12.2 % (0.0-5.0) H 07/01/18 05:30 Basophils % 0.1 % (0.0-2.0) 07/01/18 05:30 Neutrophils (Manual) 81 % (40-80) H 06/26/18 05:45 Lymphocytes 6 % (20-50) L 06/26/18 05:45 Monocytes 3 % (2-10) 06/26/18 05:45 Eosinophils 7 % (0-5) H 06/26/18 05:45 PT 10.7 SECONDS (9.5-11.5) 07/01/18 05:30 INR 1.03 (0.5-1.4) 07/01/18 05:30 PTT (Actin FS) 23.3 SECONDS (26.0-38.0) L 06/24/18 06:10 Sodium 139 mEq/L (136-145) 07/01/18 05:30 Potassium 3.5 mEq/L (3.5-5.1) 07/01/18 05:30 Chloride 107 mEq/L (98-107) 07/01/18 05:30 Carbon Dioxide 26.8 mEq/L (21.0-31.0) 07/01/18 05:30 Anion Gap 8.7 (7.0-16.0) 07/01/18 05:30 BUN 5 mg/dL (7-25) L 07/01/18 05:30 Creatinine 0.7 mg/dL (0.7-1.3) 07/01/18 05:30 Est GFR ( Amer) > 60.0 ml/min (>90) 07/01/18 05:30 Est GFR (Non-Af Amer) > 60.0 ml/min 07/01/18 05:30 BUN/Creatinine Ratio 7.1 07/01/18 05:30 Glucose 129 mg/dL (70-105) H 07/01/18 05:30 POC Glucose 125 MG/DL (70 - 105) H 07/02/18 06:24 Whole Bld Lactic Acid 0.89 mmol/L (0.60-1.99) 06/21/18 00:10 Calcium 8.8 mg/dL (8.6-10.3) 07/01/18 05:30 Total Bilirubin 0.4 mg/dL (0.3-1.0) 07/01/18 05:30 AST 24 U/L (13-39) 07/01/18 05:30 ALT 21 U/L (7-52) 07/01/18 05:30 Alkaline Phosphatase 92 U/L (34-104) 07/01/18 05:30 Ammonia 50 umol/L (16-53) 06/26/18 12:18 Total Protein 6.1 gm/dL (6.0-8.3) 07/01/18 05:30 Albumin 3.2 gm/dL (4.2-5.5) L 07/01/18 05:30 Globulin 2.9 gm/dL 07/01/18 05:30 Albumin/Globulin Ratio 1.1 (1.0-1.8) 07/01/18 05:30 Triglycerides 83 mg/dL (<150) 06/21/18 00:10 Cholesterol 133 mg/dL (<200) 06/21/18 00:10 LDL Cholesterol Direct 78 mg/dL (75-193) 06/21/18 00:10 HDL Cholesterol 33 mg/dL (23-92) 06/21/18 00:10 TSH 0.51 uIU/ml (0.34-5.60) 06/21/18 00:10 Urine Source RANDOM 06/25/18 00:10 Urine Color YELLOW 06/25/18 00:10 Urine Clarity CLEAR (CLEAR) 06/25/18 00:10 Urine pH 6.0 (4.6 - 8.0) 06/25/18 00:10 Ur Specific [place] 1.020 (1.005-1.030) 06/25/18 00:10 Urine Protein NEGATIVE mg/dL (NEGATIVE) 06/25/18 00:10 Urine Glucose (UA) NEGATIVE mg/dL (NEGATIVE) 06/25/18 00:10 Urine Ketones 15 mg/dL (NEGATIVE) H 06/25/18 00:10 Urine Blood NEGATIVE (NEGATIVE) 06/25/18 00:10 Urine Nitrate NEGATIVE (NEGATIVE) 06/25/18 00:10 Urine Bilirubin NEGATIVE (NEGATIVE) 06/25/18 00:10 Urine Ictotest NEGATIVE (NEGATIVE) 06/21/18 02:45 Urine Urobilinogen 0.2 E.U./dL (0.2 - 1.0) 06/25/18 00:10 Ur Leukocyte Esterase NEGATIVE (NEGATIVE) 06/25/18 00:10 Urine RBC 0-2 /hpf (0-5) H 06/21/18 02:45 Urine WBC 0-2 /hpf (0-5) 06/21/18 02:45 Ur Epithelial Cells FEW /lpf (FEW) 06/21/18 02:45 Urine Bacteria OCCASIONAL /hpf (NONE SEEN) 06/21/18 02:45 Urine Mucus MODERATE /lpf (FEW) 06/21/18 02:45 Salicylates < 25.0 mg/L (30.0-100.0) L 06/21/18 00:10 Urine Opiates Screen NEGATIVE (NEGATIVE) 06/21/18 02:45 Urine Methadone Screen NEGATIVE (NEGATIVE) 06/21/18 02:45 Acetaminophen < 10.0 ug/mL (10.0-30.0) L 06/21/18 00:10 Ur Barbiturates Screen NEGATIVE (NEGATIVE) 06/21/18 02:45 Valproic Acid 20.3 ug/mL (50.0-100.0) L 06/26/18 05:45 Ur Tricyclics Screen POSITIVE (NEGATIVE) H 06/21/18 02:45 Ur Phencyclidine Scrn NEGATIVE (NEGATIVE) 06/21/18 02:45 Amphetamines Screen NEGATIVE (NEGATIVE) 06/21/18 02:45 U Methamphetamines Scrn NEGATIVE (NEGATIVE) 06/21/18 02:45 U Benzodiazepines Scrn POSITIVE (NEGATIVE) H 06/21/18 02:45 U Cocaine Metab Screen NEGATIVE (NEGATIVE) 06/21/18 02:45 U Cannabinoids Screen NEGATIVE (NEGATIVE) 06/21/18 02:45 Ethyl Alcohol < 10 mg/dL (0-10) 06/21/18 00:10 RPR NONREACTIVE (NONREACTIVE) 06/21/18 00:10 - Physical Exam Vitals and I&O: Vital Signs Temp 98.4 F 07/02/18 05:18 Pulse 95 07/02/18 05:18 Resp 18 07/02/18 05:18 BP 141/92 07/02/18 05:18 Pulse Ox 94 07/02/18 05:18 Intake & Output 07/01/18 07/02/18 07/02/18 18:59 06:59 18:59 Intake Total 1000 Balance 1000 Weight (lbs) 98.883 kg 98.883 kg Intake: Intake, IV Amount 1000 D5-0.45NS 1,000 ml @ 100 1000 mls/hr IV .Q10H [facility] Rx#: [id number] Other: # Voids 2 1 # Bowel Movements 0 0 Weight Source Bedscale Bedscale Active Medications: Current Medications Acetaminophen (Tylenol) 650 mg GT Q6HR PRN PRN Reason: Mild Pain or Fever >101 Stop: 08/20/18 08:20 Last Admin: 06/21/18 21:21 Dose: 650 mg Acetaminophen (Tylenol Extra Strength) 1,000 mg GT Q8H PRN PRN Reason: Pain (Moderate) Stop: 08/20/18 08:20 Last Admin: 06/25/18 21:40 Dose: 1,000 mg Albuterol Sulfate (Albuterol 2.5mg/3ml Neb Ud) 2.5 mg HHN BID PRN PRN Reason: Shortness of Breath Last Admin: 06/25/18 23:19 Dose: 2.5 mg Ascorbic Acid (Vitamin C) 500 mg GT DAILY [facility] Stop: 08/20/18 10:59 Last Admin: 07/02/18 08:41 Dose: 500 mg Bisacodyl (Dulcolax 10 Mg Supp) 10 mg RC DAILY PRN PRN Reason: Constipation Stop: 08/20/18 08:20 Divalproex Sodium (Depakote Dr) 250 mg PO BID [facility] Stop: 08/25/18 03:29 Last Admin: 07/02/18 08:41 Dose: 250 mg Docusate Sodium (Colace) 100 mg GT DAILY [facility] Stop: 08/20/18 10:59 Last Admin: 07/02/18 08:41 Dose: 100 mg Ferrous Sulfate (Iron) 450 mg GT DAILY [facility] Stop: 08/20/18 10:59 Last Admin: 07/02/18 08:41 Dose: 450 mg Haloperidol Lactate (Haldol) 2 mg IM Q6HR PRN PRN Reason: Agitation Stop: 08/27/18 11:24 Last Admin: 07/02/18 00:17 Dose: 2 mg Heparin Sodium (Porcine) (Heparin) 5,000 units SUBQ Q12H [facility] Stop: 08/20/18 20:59 Last Admin: 07/02/18 08:43 Dose: 5,000 units Hydroxyzine HCl (Atarax) 10 mg GT TID PRN; Protocol PRN Reason: PRURITUS Stop: 08/20/18 08:20 Last Admin: 06/25/18 21:39 Dose: 10 mg Dextrose/Sodium Chloride (D5-0.45ns) 1,000 mls @ 100 mls/hr IV .Q10H [facility] Stop: 08/25/18 18:21 Last Admin: 07/02/18 00:32 Dose: 100 mls/hr Insulin Aspart (Novolog Insulin Sliding Scale) 0 units SUBQ ACHS [facility]; Protocol Stop: 08/20/18 11:29 Last Admin: 07/02/18 06:36 Dose: Not Given Lactobacillus Rhamnosus (Culturelle 15b) 1 each GT DAILY [facility]RED Stop: 08/20/18 10:59 Last Admin: 07/02/18 08:41 Dose: 1 each Lactulose (Cephulac) 30 gm PO Q6HR [facility] Stop: 08/20/18 08:59 Last Admin: 07/02/18 05:33 Dose: 30 gm Lorazepam (Ativan) 0.5 mg GT Q6H PRN; Protocol PRN Reason: Anxiety Stop: 08/20/18 08:20 Lorazepam (Ativan) 2 mg IVP Q6HR PRN; Protocol PRN Reason: Agitation Stop: 08/20/18 08:10 Last Admin: 07/02/18 00:26 Dose: 2 mg Lorazepam (Ativan) 1 mg PO TID WINIFRED; Protocol Stop: 08/22/18 08:59 Last Admin: 07/02/18 08:42 Dose: 1 mg Magnesium Hydroxide (Milk Of Magnesia) 30 ml GT HS PRN PRN Reason: Constipation Stop: 08/20/18 08:20 Midodrine (Proamatine) 5 mg GT TID [facility]RED Stop: 08/20/18 08:59 Last Admin: 07/02/18 08:55 Dose: Not Given Miscellaneous (Vte Chemical Prophylaxis Screen/ Admission) 1 ea MC PRN PRN PRN Reason: PROTOCOL Stop: 08/20/18 12:59 Miscellaneous (Probiotic Screen) 1 ea MC PRN PRN PRN Reason: PROTOCOL Stop: 08/22/18 14:29 Morphine Sulfate (Morphine) 1 mg IVP Q4HR PRN PRN Reason: moderate pain Stop: 08/27/18 11:25 Morphine Sulfate (Morphine) 2 mg IVP Q4HR PRN PRN Reason: Severe Pain Stop: 08/27/18 11:25 Last Admin: 07/01/18 13:27 Dose: 2 mg Pantoprazole Sodium (Protonix) 40 mg GT QDAC [facility] Stop: 08/20/18 11:29 Last Admin: 07/02/18 08:42 Dose: 40 mg Pioglitazone HCl (Actos) 15 mg GT DAILY [facility] Stop: 08/20/18 08:59 Last Admin: 07/02/18 08:41 Dose: 15 mg Potassium Chloride (Klor-Con) 20 meq PO DAILY [facility] Stop: 08/20/18 08:59 Last Admin: 07/02/18 08:42 Dose: 20 meq Quetiapine Fumarate (Seroquel Xr) 200 mg PO BID WINIFRED; Protocol Stop: 08/22/18 08:59 Last Admin: 07/02/18 08:42 Dose: 200 mg Sodium Phosphate (Fleet Enema) 135 ml RC Q48H PRN PRN Reason: Constipation Stop: 08/20/18 08:20 General: No acute distress, Other (confused) Cardiovascular: Regular rate Lungs: Clear to auscultation Abdomen: Bowel sounds (normal), Soft - Procedures Procedures: Procedures Procedure Code Date ASSISTANCE WITH RESPIRATORY VENTILATION, <24 HRS, CPAP [id number] 06/01/18 INSPECTION OF UPPER INTESTINAL TRACT, ENDO [id number] 06/21/18 REMOVAL OF FEEDING DEVICE FROM STOMACH, EXTERNAL APPROACH [id number] 06/21/18 Assessment/Plan - Problem List Patient Problems: All Active Problems Altered level of consciousness (Acute) R40.4 Diabetes (Acute) E11.9 Encephalopathy (Acute) G93.40 Iron deficiency (Acute) E61.1 Leukocytosis (Acute) D72.829 Osteoarthritis (Acute) M19.90 UTI (urinary tract infection) (Acute) - Assessment Assessment: IMPRESSION: Dysphagia s/p GT removal. Passed swallow eval. ALOC with possible encephalopathy and elevated NH3. - Plan Plan: - oral diet as dionicio. - speech therapy. - aspiration precautions. - may need GT reinsertion if oral intake inadequate. - lactulose.
--- NOTE | 2018-07-02 11:57 | Internal Medicine Prog Note ---
Internal Medicine Subjective - Subjective Service Date: 07/02/18 Patient is:: awake, verbal, other Patient Complaints of:: other Per staff patient has:: tolerating meds Internal Medicine Objective - Results Result Diagrams: 07/01/18 05:30 07/01/18 05:30 Recent Labs: Laboratory Last Values WBC 8.2 Th/cmm (4.8-10.8) 07/01/18 05:30 RBC 4.54 Mil/cmm (4.30-5.70) 07/01/18 05:30 Hgb 13.0 gm/dL (12-16) 07/01/18 05:30 Hct 39.3 % (41.0-60) L 07/01/18 05:30 MCV 86.5 fl (80-99) 07/01/18 05:30 MCH 28.6 pg (26.0-30.0) 07/01/18 05:30 MCHC Differential 33.0 pg (28.0-36.0) 07/01/18 05:30 RDW 15.6 % (11.5-20.0) 07/01/18 05:30 Plt Count 323 Th/cmm (150-400) 07/01/18 05:30 MPV 6.7 fl 07/01/18 05:30 Neutrophils % 54.6 % (40.0-80.0) 07/01/18 05:30 Band Neutrophils % 3 % (0-10) 06/26/18 05:45 Lymphocytes % 25.9 % (20.0-50.0) 07/01/18 05:30 Monocytes % 7.2 % (2.0-10.0) 07/01/18 05:30 Eosinophils % 12.2 % (0.0-5.0) H 07/01/18 05:30 Basophils % 0.1 % (0.0-2.0) 07/01/18 05:30 Neutrophils (Manual) 81 % (40-80) H 06/26/18 05:45 Lymphocytes 6 % (20-50) L 06/26/18 05:45 Monocytes 3 % (2-10) 06/26/18 05:45 Eosinophils 7 % (0-5) H 06/26/18 05:45 PT 10.7 SECONDS (9.5-11.5) 07/01/18 05:30 INR 1.03 (0.5-1.4) 07/01/18 05:30 PTT (Actin FS) 23.3 SECONDS (26.0-38.0) L 06/24/18 06:10 Sodium 139 mEq/L (136-145) 07/01/18 05:30 Potassium 3.5 mEq/L (3.5-5.1) 07/01/18 05:30 Chloride 107 mEq/L (98-107) 07/01/18 05:30 Carbon Dioxide 26.8 mEq/L (21.0-31.0) 07/01/18 05:30 Anion Gap 8.7 (7.0-16.0) 07/01/18 05:30 BUN 5 mg/dL (7-25) L 07/01/18 05:30 Creatinine 0.7 mg/dL (0.7-1.3) 07/01/18 05:30 Est GFR ( Amer) > 60.0 ml/min (>90) 07/01/18 05:30 Est GFR (Non-Af Amer) > 60.0 ml/min 07/01/18 05:30 BUN/Creatinine Ratio 7.1 07/01/18 05:30 Glucose 129 mg/dL (70-105) H 07/01/18 05:30 POC Glucose 121 MG/DL (70 - 105) H 07/02/18 11:02 Whole Bld Lactic Acid 0.89 mmol/L (0.60-1.99) 06/21/18 00:10 Calcium 8.8 mg/dL (8.6-10.3) 07/01/18 05:30 Total Bilirubin 0.4 mg/dL (0.3-1.0) 07/01/18 05:30 AST 24 U/L (13-39) 07/01/18 05:30 ALT 21 U/L (7-52) 07/01/18 05:30 Alkaline Phosphatase 92 U/L (34-104) 07/01/18 05:30 Ammonia 50 umol/L (16-53) 06/26/18 12:18 Total Protein 6.1 gm/dL (6.0-8.3) 07/01/18 05:30 Albumin 3.2 gm/dL (4.2-5.5) L 07/01/18 05:30 Globulin 2.9 gm/dL 07/01/18 05:30 Albumin/Globulin Ratio 1.1 (1.0-1.8) 07/01/18 05:30 Triglycerides 83 mg/dL (<150) 06/21/18 00:10 Cholesterol 133 mg/dL (<200) 06/21/18 00:10 LDL Cholesterol Direct 78 mg/dL (75-193) 06/21/18 00:10 HDL Cholesterol 33 mg/dL (23-92) 06/21/18 00:10 TSH 0.51 uIU/ml (0.34-5.60) 06/21/18 00:10 Urine Source RANDOM 06/25/18 00:10 Urine Color YELLOW 06/25/18 00:10 Urine Clarity CLEAR (CLEAR) 06/25/18 00:10 Urine pH 6.0 (4.6 - 8.0) 06/25/18 00:10 Ur Specific [place] 1.020 (1.005-1.030) 06/25/18 00:10 Urine Protein NEGATIVE mg/dL (NEGATIVE) 06/25/18 00:10 Urine Glucose (UA) NEGATIVE mg/dL (NEGATIVE) 06/25/18 00:10 Urine Ketones 15 mg/dL (NEGATIVE) H 06/25/18 00:10 Urine Blood NEGATIVE (NEGATIVE) 06/25/18 00:10 Urine Nitrate NEGATIVE (NEGATIVE) 06/25/18 00:10 Urine Bilirubin NEGATIVE (NEGATIVE) 06/25/18 00:10 Urine Ictotest NEGATIVE (NEGATIVE) 06/21/18 02:45 Urine Urobilinogen 0.2 E.U./dL (0.2 - 1.0) 06/25/18 00:10 Ur Leukocyte Esterase NEGATIVE (NEGATIVE) 06/25/18 00:10 Urine RBC 0-2 /hpf (0-5) H 06/21/18 02:45 Urine WBC 0-2 /hpf (0-5) 06/21/18 02:45 Ur Epithelial Cells FEW /lpf (FEW) 06/21/18 02:45 Urine Bacteria OCCASIONAL /hpf (NONE SEEN) 06/21/18 02:45 Urine Mucus MODERATE /lpf (FEW) 06/21/18 02:45 Salicylates < 25.0 mg/L (30.0-100.0) L 06/21/18 00:10 Urine Opiates Screen NEGATIVE (NEGATIVE) 06/21/18 02:45 Urine Methadone Screen NEGATIVE (NEGATIVE) 06/21/18 02:45 Acetaminophen < 10.0 ug/mL (10.0-30.0) L 06/21/18 00:10 Ur Barbiturates Screen NEGATIVE (NEGATIVE) 06/21/18 02:45 Valproic Acid 20.3 ug/mL (50.0-100.0) L 06/26/18 05:45 Ur Tricyclics Screen POSITIVE (NEGATIVE) H 06/21/18 02:45 Ur Phencyclidine Scrn NEGATIVE (NEGATIVE) 06/21/18 02:45 Amphetamines Screen NEGATIVE (NEGATIVE) 06/21/18 02:45 U Methamphetamines Scrn NEGATIVE (NEGATIVE) 06/21/18 02:45 U Benzodiazepines Scrn POSITIVE (NEGATIVE) H 06/21/18 02:45 U Cocaine Metab Screen NEGATIVE (NEGATIVE) 06/21/18 02:45 U Cannabinoids Screen NEGATIVE (NEGATIVE) 06/21/18 02:45 Ethyl Alcohol < 10 mg/dL (0-10) 06/21/18 00:10 RPR NONREACTIVE (NONREACTIVE) 06/21/18 00:10 - Physical Exam Vitals and I&O: Vital Signs Temp 96.8 F 07/02/18 10:00 Pulse 92 07/02/18 10:00 Resp 18 07/02/18 10:00 BP 120/83 07/02/18 10:00 Pulse Ox 97 07/02/18 09:00 Intake & Output 07/01/18 07/02/18 07/02/18 18:59 06:59 18:59 Intake Total 1000 Balance 1000 Weight (lbs) 218 lb 218 lb Intake: Intake, IV Amount 1000 D5-0.45NS 1,000 ml @ 100 1000 mls/hr IV .Q10H [facility] Rx#: [id number] Other: # Voids 2 1 # Bowel Movements 0 0 Weight Source Bedscale Bedscale Active Medications: Current Medications Acetaminophen (Tylenol) 650 mg GT Q6HR PRN PRN Reason: Mild Pain or Fever >101 Stop: 08/20/18 08:20 Last Admin: 06/21/18 21:21 Dose: 650 mg Acetaminophen (Tylenol Extra Strength) 1,000 mg GT Q8H PRN PRN Reason: Pain (Moderate) Stop: 08/20/18 08:20 Last Admin: 06/25/18 21:40 Dose: 1,000 mg Albuterol Sulfate (Albuterol 2.5mg/3ml Neb Ud) 2.5 mg HHN BID PRN PRN Reason: Shortness of Breath Last Admin: 06/25/18 23:19 Dose: 2.5 mg Ascorbic Acid (Vitamin C) 500 mg GT DAILY [facility] Stop: 08/20/18 10:59 Last Admin: 07/02/18 08:41 Dose: 500 mg Bisacodyl (Dulcolax 10 Mg Supp) 10 mg RC DAILY PRN PRN Reason: Constipation Stop: 08/20/18 08:20 Divalproex Sodium (Depakote Dr) 250 mg PO BID [facility] Stop: 08/25/18 03:29 Last Admin: 07/02/18 08:41 Dose: 250 mg Docusate Sodium (Colace) 100 mg GT DAILY [facility] Stop: 08/20/18 10:59 Last Admin: 07/02/18 08:41 Dose: 100 mg Ferrous Sulfate (Iron) 450 mg GT DAILY [facility] Stop: 08/20/18 10:59 Last Admin: 07/02/18 08:41 Dose: 450 mg Haloperidol Lactate (Haldol) 2 mg IM Q6HR PRN PRN Reason: Agitation Stop: 08/27/18 11:24 Last Admin: 07/02/18 00:17 Dose: 2 mg Heparin Sodium (Porcine) (Heparin) 5,000 units SUBQ Q12H [facility] Stop: 08/20/18 20:59 Last Admin: 07/02/18 08:43 Dose: 5,000 units Hydroxyzine HCl (Atarax) 10 mg GT TID PRN; Protocol PRN Reason: PRURITUS Stop: 08/20/18 08:20 Last Admin: 06/25/18 21:39 Dose: 10 mg Dextrose/Sodium Chloride (D5-0.45ns) 1,000 mls @ 100 mls/hr IV .Q10H [facility] Stop: 08/25/18 18:21 Last Admin: 07/02/18 00:32 Dose: 100 mls/hr Insulin Aspart (Novolog Insulin Sliding Scale) 0 units SUBQ ACHS [facility]; Protocol Stop: 08/20/18 11:29 Last Admin: 07/02/18 11:45 Dose: Not Given Lactobacillus Rhamnosus (Culturelle 15b) 1 each GT DAILY [facility] Stop: 08/20/18 10:59 Last Admin: 07/02/18 08:41 Dose: 1 each Lactulose (Cephulac) 30 gm PO Q6HR [facility] Stop: 08/20/18 08:59 Last Admin: 07/02/18 05:33 Dose: 30 gm Lorazepam (Ativan) 0.5 mg GT Q6H PRN; Protocol PRN Reason: Anxiety Stop: 08/20/18 08:20 Lorazepam (Ativan) 2 mg IVP Q6HR PRN; Protocol PRN Reason: Agitation Stop: 08/20/18 08:10 Last Admin: 07/02/18 00:26 Dose: 2 mg Lorazepam (Ativan) 1 mg PO TID WINIFRED; Protocol Stop: 08/22/18 08:59 Last Admin: 07/02/18 08:42 Dose: 1 mg Magnesium Hydroxide (Milk Of Magnesia) 30 ml GT HS PRN PRN Reason: Constipation Stop: 08/20/18 08:20 Midodrine (Proamatine) 5 mg GT TID [facility]RED Stop: 08/20/18 08:59 Last Admin: 07/02/18 08:55 Dose: Not Given Miscellaneous (Vte Chemical Prophylaxis Screen/ Admission) 1 ea MC PRN PRN PRN Reason: PROTOCOL Stop: 08/20/18 12:59 Miscellaneous (Probiotic Screen) 1 ea MC PRN PRN PRN Reason: PROTOCOL Stop: 08/22/18 14:29 Morphine Sulfate (Morphine) 1 mg IVP Q4HR PRN PRN Reason: moderate pain Stop: 08/27/18 11:25 Morphine Sulfate (Morphine) 2 mg IVP Q4HR PRN PRN Reason: Severe Pain Stop: 08/27/18 11:25 Last Admin: 07/01/18 13:27 Dose: 2 mg Pantoprazole Sodium (Protonix) 40 mg GT QDAC [facility]RED Stop: 08/20/18 11:29 Last Admin: 07/02/18 08:42 Dose: 40 mg Pioglitazone HCl (Actos) 15 mg GT DAILY [facility]RED Stop: 08/20/18 08:59 Last Admin: 07/02/18 08:41 Dose: 15 mg Potassium Chloride (Klor-Con) 20 meq PO DAILY [facility] Stop: 08/20/18 08:59 Last Admin: 07/02/18 08:42 Dose: 20 meq Quetiapine Fumarate (Seroquel Xr) 200 mg PO BID [facility]IFRED; Protocol Stop: 08/22/18 08:59 Last Admin: 07/02/18 08:42 Dose: 200 mg Sodium Phosphate (Fleet Enema) 135 ml RC Q48H PRN PRN Reason: Constipation Stop: 08/20/18 08:20 General: alert HEENT: NC/AT, PERRLA Neck: Supple Lungs: CTAB Cardiovascular: RRR, Normal S1, Normal S2, without murmur Abdomen: soft, non-tender, non-distended Neurological: alert - Procedures Procedures: Procedures Procedure Code Date ASSISTANCE WITH RESPIRATORY VENTILATION, <24 HRS, CPAP [id number] 06/01/18 INSPECTION OF UPPER INTESTINAL TRACT, ENDO [id number] 06/21/18 REMOVAL OF FEEDING DEVICE FROM STOMACH, EXTERNAL APPROACH [id number] 06/21/18 Internal Medicine Assmt/Plan - Assessment Assessment: aloc acute uti leukocytosis HTN DM copd esrd seizures - Plan Plan: continue ivabx seizure precautions follow up labs in am continue the rest of the orders Nutritional Asmnt/Malnutr-PDOC - Dietary Evaluation Malnutrition Findings (Please click <Entered> for more info): Nutritional Asmnt/Malnutrition Start: 06/26/18 15: 31 Text: Status: Complete Freq: Protocol: Document 06/26/18 15:31 CONNOR (Rec: 06/26/18 15:46 CONNOR LEONE) Nutritional Asmnt/Malnutrition Patient General Information Nutritional Screening Moderate Risk Diagnosis ALOC, increased ammonia, leukocytosis Pertinent Medical Hx/Surgical Hx PEG/G Tube, ESRD, seizures, PUD/GERD, asthma/COPD, status post CVA and TIA, bipolar disorder, GERD, MRSA, gastritis, HTN, DM, status post cellulitis Subjective Information Pt sleeping at time of visit. Pt placed on NPO status after pt failed swallow eval today. Per nurse notes: pt was eating well and PO intake 75% prior to swallow eval. Pt had PEG tube and removed on 06/24. Per ST note, will reassess tommorrow 06/27. Current Diet Order/ Nutrition Support NPO Pertinent Medications novolog, culturelle, colace, iron, heparin, Vit C, dulcolax , protonix, klor-con, seroquel Xr, levaquin, Pertinent Labs 06/26: glucose 119, POC 109- 129 06/25: glucose 117, POC 108-130 Nutritional Hx/Data Height 5 ft 6 in Height (Calculated Centimeters) 167.6 Current Weight (lbs) 190 lb Weight (Calculated Kilograms) 86.2 Weight (Calculated Grams) 37974.6 [place] Body Weight 142 lb Body Mass Index (BMI) 30.7 Weight Status Obese GI Symptoms GI Symptoms None Last BM 06/26 Difficult in: Swallowing Food Allergies No Skin Integrity/Comment: PEG removed, gastrostomy skin intact elizabeth 16 Current %PO Good (75-100%) Estimated Nutritional Goals BEE in Kcals: Adj wt of IBW Calories/Kcals/Kg 25-30 (based on adj wt 70 kg) Kcals Calculated 5852-6499 Protein: Adj wt of IBW Protein g/k (based on adj wt 70 kg) Protein Calculated 70 g Fluid: ml 4657-9147 (1 ml/kcal) Nutritional Problem 1. Problem Problem inadequate energy intake Etiology swallowing impairment Signs/Symptoms: NPO status after swallow eval and no alternate route of nutrition in place Malnutrition Alert Is there a minimum of two criteria No selected? Query Text:Check all the applicable criteria. A minimum of two criteria are recommended for diagnosis of either severe or non-severe malnutrition. Malnutrition Related to Morbid Obesity Malnutrition related to morbid obesity No Intervention/Recommendation Comments 1. Monitor NPO status. Consider alternate route of nutrition if pt unable to tolerate PO intake after swallow eval 06/27 2. Monitor wt, labs, and skin integrity 3. F/U as high risk in 2-3 days, 06/28-06/29 Expected Outcomes/Goals Expected Outcomes/Goals 1. Pt to meet at least 75% of nutritional needs from route of nutrition per ST 2. Wt stability, skin to remain intact, labs to approach WNL. Reviewed by Zoe Marsh RD
--- NOTE | 2018-07-02 12:02 | Infectious Disease Prog Note ---
Infectious Disease Subjective - Review of Systems Service Date: 07/02/18 Subjective: No new change, no fever. Infectious Disease Objective - Results Result Diagrams: 07/01/18 05:30 07/01/18 05:30 Recent Labs: Laboratory Last Values WBC 8.2 Th/cmm (4.8-10.8) 07/01/18 05:30 RBC 4.54 Mil/cmm (4.30-5.70) 07/01/18 05:30 Hgb 13.0 gm/dL (12-16) 07/01/18 05:30 Hct 39.3 % (41.0-60) L 07/01/18 05:30 MCV 86.5 fl (80-99) 07/01/18 05:30 MCH 28.6 pg (26.0-30.0) 07/01/18 05:30 MCHC Differential 33.0 pg (28.0-36.0) 07/01/18 05:30 RDW 15.6 % (11.5-20.0) 07/01/18 05:30 Plt Count 323 Th/cmm (150-400) 07/01/18 05:30 MPV 6.7 fl 07/01/18 05:30 Neutrophils % 54.6 % (40.0-80.0) 07/01/18 05:30 Band Neutrophils % 3 % (0-10) 06/26/18 05:45 Lymphocytes % 25.9 % (20.0-50.0) 07/01/18 05:30 Monocytes % 7.2 % (2.0-10.0) 07/01/18 05:30 Eosinophils % 12.2 % (0.0-5.0) H 07/01/18 05:30 Basophils % 0.1 % (0.0-2.0) 07/01/18 05:30 Neutrophils (Manual) 81 % (40-80) H 06/26/18 05:45 Lymphocytes 6 % (20-50) L 06/26/18 05:45 Monocytes 3 % (2-10) 06/26/18 05:45 Eosinophils 7 % (0-5) H 06/26/18 05:45 PT 10.7 SECONDS (9.5-11.5) 07/01/18 05:30 INR 1.03 (0.5-1.4) 07/01/18 05:30 PTT (Actin FS) 23.3 SECONDS (26.0-38.0) L 06/24/18 06:10 Sodium 139 mEq/L (136-145) 07/01/18 05:30 Potassium 3.5 mEq/L (3.5-5.1) 07/01/18 05:30 Chloride 107 mEq/L (98-107) 07/01/18 05:30 Carbon Dioxide 26.8 mEq/L (21.0-31.0) 07/01/18 05:30 Anion Gap 8.7 (7.0-16.0) 07/01/18 05:30 BUN 5 mg/dL (7-25) L 07/01/18 05:30 Creatinine 0.7 mg/dL (0.7-1.3) 07/01/18 05:30 Est GFR ( Amer) > 60.0 ml/min (>90) 07/01/18 05:30 Est GFR (Non-Af Amer) > 60.0 ml/min 07/01/18 05:30 BUN/Creatinine Ratio 7.1 07/01/18 05:30 Glucose 129 mg/dL (70-105) H 07/01/18 05:30 POC Glucose 121 MG/DL (70 - 105) H 07/02/18 11:02 Whole Bld Lactic Acid 0.89 mmol/L (0.60-1.99) 06/21/18 00:10 Calcium 8.8 mg/dL (8.6-10.3) 07/01/18 05:30 Total Bilirubin 0.4 mg/dL (0.3-1.0) 07/01/18 05:30 AST 24 U/L (13-39) 07/01/18 05:30 ALT 21 U/L (7-52) 07/01/18 05:30 Alkaline Phosphatase 92 U/L (34-104) 07/01/18 05:30 Ammonia 50 umol/L (16-53) 06/26/18 12:18 Total Protein 6.1 gm/dL (6.0-8.3) 07/01/18 05:30 Albumin 3.2 gm/dL (4.2-5.5) L 07/01/18 05:30 Globulin 2.9 gm/dL 07/01/18 05:30 Albumin/Globulin Ratio 1.1 (1.0-1.8) 07/01/18 05:30 Triglycerides 83 mg/dL (<150) 06/21/18 00:10 Cholesterol 133 mg/dL (<200) 06/21/18 00:10 LDL Cholesterol Direct 78 mg/dL (75-193) 06/21/18 00:10 HDL Cholesterol 33 mg/dL (23-92) 06/21/18 00:10 TSH 0.51 uIU/ml (0.34-5.60) 06/21/18 00:10 Urine Source RANDOM 06/25/18 00:10 Urine Color YELLOW 06/25/18 00:10 Urine Clarity CLEAR (CLEAR) 06/25/18 00:10 Urine pH 6.0 (4.6 - 8.0) 06/25/18 00:10 Ur Specific [place] 1.020 (1.005-1.030) 06/25/18 00:10 Urine Protein NEGATIVE mg/dL (NEGATIVE) 06/25/18 00:10 Urine Glucose (UA) NEGATIVE mg/dL (NEGATIVE) 06/25/18 00:10 Urine Ketones 15 mg/dL (NEGATIVE) H 06/25/18 00:10 Urine Blood NEGATIVE (NEGATIVE) 06/25/18 00:10 Urine Nitrate NEGATIVE (NEGATIVE) 06/25/18 00:10 Urine Bilirubin NEGATIVE (NEGATIVE) 06/25/18 00:10 Urine Ictotest NEGATIVE (NEGATIVE) 06/21/18 02:45 Urine Urobilinogen 0.2 E.U./dL (0.2 - 1.0) 06/25/18 00:10 Ur Leukocyte Esterase NEGATIVE (NEGATIVE) 06/25/18 00:10 Urine RBC 0-2 /hpf (0-5) H 06/21/18 02:45 Urine WBC 0-2 /hpf (0-5) 06/21/18 02:45 Ur Epithelial Cells FEW /lpf (FEW) 06/21/18 02:45 Urine Bacteria OCCASIONAL /hpf (NONE SEEN) 06/21/18 02:45 Urine Mucus MODERATE /lpf (FEW) 06/21/18 02:45 Salicylates < 25.0 mg/L (30.0-100.0) L 06/21/18 00:10 Urine Opiates Screen NEGATIVE (NEGATIVE) 06/21/18 02:45 Urine Methadone Screen NEGATIVE (NEGATIVE) 06/21/18 02:45 Acetaminophen < 10.0 ug/mL (10.0-30.0) L 06/21/18 00:10 Ur Barbiturates Screen NEGATIVE (NEGATIVE) 06/21/18 02:45 Valproic Acid 20.3 ug/mL (50.0-100.0) L 06/26/18 05:45 Ur Tricyclics Screen POSITIVE (NEGATIVE) H 06/21/18 02:45 Ur Phencyclidine Scrn NEGATIVE (NEGATIVE) 06/21/18 02:45 Amphetamines Screen NEGATIVE (NEGATIVE) 06/21/18 02:45 U Methamphetamines Scrn NEGATIVE (NEGATIVE) 06/21/18 02:45 U Benzodiazepines Scrn POSITIVE (NEGATIVE) H 06/21/18 02:45 U Cocaine Metab Screen NEGATIVE (NEGATIVE) 06/21/18 02:45 U Cannabinoids Screen NEGATIVE (NEGATIVE) 06/21/18 02:45 Ethyl Alcohol < 10 mg/dL (0-10) 06/21/18 00:10 RPR NONREACTIVE (NONREACTIVE) 06/21/18 00:10 - Physical Exam Vitals and I&O: Vital Signs Temp 96.8 F 07/02/18 10:00 Pulse 92 07/02/18 10:00 Resp 18 07/02/18 10:00 BP 120/83 07/02/18 10:00 Pulse Ox 97 07/02/18 09:00 Intake & Output 07/01/18 07/02/18 07/02/18 18:59 06:59 18:59 Intake Total 1000 Balance 1000 Weight (lbs) 98.883 kg 98.883 kg Intake: Intake, IV Amount 1000 D5-0.45NS 1,000 ml @ 100 1000 mls/hr IV .Q10H WINIFRED Rx#: [id number] Other: # Voids 2 1 # Bowel Movements 0 0 Weight Source Bedscale Bedscale Active Medications: Current Medications Acetaminophen (Tylenol) 650 mg GT Q6HR PRN PRN Reason: Mild Pain or Fever >101 Stop: 08/20/18 08:20 Last Admin: 06/21/18 21:21 Dose: 650 mg Acetaminophen (Tylenol Extra Strength) 1,000 mg GT Q8H PRN PRN Reason: Pain (Moderate) Stop: 08/20/18 08:20 Last Admin: 06/25/18 21:40 Dose: 1,000 mg Albuterol Sulfate (Albuterol 2.5mg/3ml Neb Ud) 2.5 mg HHN BID PRN PRN Reason: Shortness of Breath Last Admin: 06/25/18 23:19 Dose: 2.5 mg Ascorbic Acid (Vitamin C) 500 mg GT DAILY WIN[facility]RED Stop: 08/20/18 10:59 Last Admin: 07/02/18 08:41 Dose: 500 mg Bisacodyl (Dulcolax 10 Mg Supp) 10 mg RC DAILY PRN PRN Reason: Constipation Stop: 08/20/18 08:20 Divalproex Sodium (Depakote Dr) 250 mg PO BID [facility] Stop: 08/25/18 03:29 Last Admin: 07/02/18 08:41 Dose: 250 mg Docusate Sodium (Colace) 100 mg GT DAILY [facility] Stop: 08/20/18 10:59 Last Admin: 07/02/18 08:41 Dose: 100 mg Ferrous Sulfate (Iron) 450 mg GT DAILY [facility] Stop: 08/20/18 10:59 Last Admin: 07/02/18 08:41 Dose: 450 mg Haloperidol Lactate (Haldol) 2 mg IM Q6HR PRN PRN Reason: Agitation Stop: 08/27/18 11:24 Last Admin: 07/02/18 00:17 Dose: 2 mg Heparin Sodium (Porcine) (Heparin) 5,000 units SUBQ Q12H [facility] Stop: 08/20/18 20:59 Last Admin: 07/02/18 08:43 Dose: 5,000 units Hydroxyzine HCl (Atarax) 10 mg GT TID PRN; Protocol PRN Reason: PRURITUS Stop: 08/20/18 08:20 Last Admin: 06/25/18 21:39 Dose: 10 mg Dextrose/Sodium Chloride (D5-0.45ns) 1,000 mls @ 100 mls/hr IV .Q10H [facility] Stop: 08/25/18 18:21 Last Admin: 07/02/18 00:32 Dose: 100 mls/hr Insulin Aspart (Novolog Insulin Sliding Scale) 0 units SUBQ ACHS WINIFRED; Protocol Stop: 08/20/18 11:29 Last Admin: 07/02/18 11:45 Dose: Not Given Lactobacillus Rhamnosus (Culturelle 15b) 1 each GT DAILY [facility]RED Stop: 08/20/18 10:59 Last Admin: 07/02/18 08:41 Dose: 1 each Lactulose (Cephulac) 30 gm PO Q6HR [facility] Stop: 08/20/18 08:59 Last Admin: 07/02/18 05:33 Dose: 30 gm Lorazepam (Ativan) 0.5 mg GT Q6H PRN; Protocol PRN Reason: Anxiety Stop: 08/20/18 08:20 Lorazepam (Ativan) 2 mg IVP Q6HR PRN; Protocol PRN Reason: Agitation Stop: 08/20/18 08:10 Last Admin: 07/02/18 00:26 Dose: 2 mg Lorazepam (Ativan) 1 mg PO TID WINIFRED; Protocol Stop: 08/22/18 08:59 Last Admin: 07/02/18 08:42 Dose: 1 mg Magnesium Hydroxide (Milk Of Magnesia) 30 ml GT HS PRN PRN Reason: Constipation Stop: 08/20/18 08:20 Midodrine (Proamatine) 5 mg GT TID [facility]RED Stop: 08/20/18 08:59 Last Admin: 07/02/18 08:55 Dose: Not Given Miscellaneous (Vte Chemical Prophylaxis Screen/ Admission) 1 ea PRN PRN PRN Reason: PROTOCOL Stop: 08/20/18 12:59 Miscellaneous (Probiotic Screen) 1 ea PRN PRN PRN Reason: PROTOCOL Stop: 08/22/18 14:29 Morphine Sulfate (Morphine) 1 mg IVP Q4HR PRN PRN Reason: moderate pain Stop: 08/27/18 11:25 Morphine Sulfate (Morphine) 2 mg IVP Q4HR PRN PRN Reason: Severe Pain Stop: 08/27/18 11:25 Last Admin: 07/01/18 13:27 Dose: 2 mg Pantoprazole Sodium (Protonix) 40 mg GT QDAC [facility] Stop: 08/20/18 11:29 Last Admin: 07/02/18 08:42 Dose: 40 mg Pioglitazone HCl (Actos) 15 mg GT DAILY [facility] Stop: 08/20/18 08:59 Last Admin: 07/02/18 08:41 Dose: 15 mg Potassium Chloride (Klor-Con) 20 meq PO DAILY [facility] Stop: 08/20/18 08:59 Last Admin: 07/02/18 08:42 Dose: 20 meq Quetiapine Fumarate (Seroquel Xr) 200 mg PO BID WINIFRED; Protocol Stop: 08/22/18 08:59 Last Admin: 07/02/18 08:42 Dose: 200 mg Sodium Phosphate (Fleet Enema) 135 ml RC Q48H PRN PRN Reason: Constipation Stop: 08/20/18 08:20 General: no acute distress, well developed, well nourished HEENT: atraumatic, normocephalic, PERRLA, EOMI Neck: supple, no thyromegaly Cardiovascular: S1S2, regular Lungs: clear to auscultation bilaterally, clear to percussion Abdomen: soft, no tender, no distended Extremities: no cyanosis, no clubbing, no edema Neurological: awake, alert, oriented Skin: intact - Procedures Procedures: Procedures Procedure Code Date ASSISTANCE WITH RESPIRATORY VENTILATION, <24 HRS, CPAP [id number] 06/01/18 INSPECTION OF UPPER INTESTINAL TRACT, ENDO [id number] 06/21/18 REMOVAL OF FEEDING DEVICE FROM STOMACH, EXTERNAL APPROACH [id number] 06/21/18 Infectious Disease Assmt/Plan - Problem List Patient Problems: All Active Problems Altered level of consciousness (Acute) R40.4 Diabetes (Acute) E11.9 Encephalopathy (Acute) G93.40 Iron deficiency (Acute) E61.1 Leukocytosis (Acute) D72.829 Osteoarthritis (Acute) M19.90 UTI (urinary tract infection) (Acute) - Assessment Assessment: 1. Leukocytosis. Improved. 2. Psychosis. 3. Seizure d/o. 4. Aspiration pneumonia . - Plan Plan: Continue levaquin and flagyl to complete 10 days therapy. Nutritional Asmnt/Malnutr-PDOC - Dietary Evaluation Malnutrition Findings (Please click <Entered> for more info): Nutritional Asmnt/Malnutrition Start: 06/26/18 15: 31 Text: Status: Complete Freq: Protocol: Document 06/26/18 15:31 CONNOR (Rec: 06/26/18 15:46 CONNOR LEONE) Nutritional Asmnt/Malnutrition Patient General Information Nutritional Screening Moderate Risk Diagnosis ALOC, increased ammonia, leukocytosis Pertinent Medical Hx/Surgical Hx PEG/G Tube, ESRD, seizures, PUD/GERD, asthma/COPD, status post CVA and TIA, bipolar disorder, GERD, MRSA, gastritis, HTN, DM, status post cellulitis Subjective Information Pt sleeping at time of visit. Pt placed on NPO status after pt failed swallow eval today. Per nurse notes: pt was eating well and PO intake 75% prior to swallow eval. Pt had PEG tube and removed on 06/24. Per ST note, will reassess tommorrow 06/27. Current Diet Order/ Nutrition Support NPO Pertinent Medications novolog, culturelle, colace, iron, heparin, Vit C, dulcolax , protonix, klor-con, seroquel Xr, levaquin, Pertinent Labs 06/26: glucose 119, POC 109- 129 06/25: glucose 117, POC 108-130 Nutritional Hx/Data Height 1.68 m Height (Calculated Centimeters) 167.6 Current Weight (lbs) 86.183 kg Weight (Calculated Kilograms) 86.2 Weight (Calculated Grams) 93042.6 [place] Body Weight 142 lb Body Mass Index (BMI) 30.7 Weight Status Obese GI Symptoms GI Symptoms None Last BM 06/26 Difficult in: Swallowing Food Allergies No Skin Integrity/Comment: PEG removed, gastrostomy skin intact elizabeth 16 Current %PO Good (75-100%) Estimated Nutritional Goals BEE in Kcals: Adj wt of IBW Calories/Kcals/Kg 25-30 (based on adj wt 70 kg) Kcals Calculated 5106-7058 Protein: Adj wt of IBW Protein g/k (based on adj wt 70 kg) Protein Calculated 70 g Fluid: ml [id number] (1 ml/kcal) Nutritional Problem 1. Problem Problem inadequate energy intake Etiology swallowing impairment Signs/Symptoms: NPO status after swallow eval and no alternate route of nutrition in place Malnutrition Alert Is there a minimum of two criteria No selected? Query Text:Check all the applicable criteria. A minimum of two criteria are recommended for diagnosis of either severe or non-severe malnutrition. Malnutrition Related to Morbid Obesity Malnutrition related to morbid obesity No Intervention/Recommendation Comments 1. Monitor NPO status. Consider alternate route of nutrition if pt unable to tolerate PO intake after swallow eval 06/27 2. Monitor wt, labs, and skin integrity 3. F/U as high risk in 2-3 days, 06/28-06/29 Expected Outcomes/Goals Expected Outcomes/Goals 1. Pt to meet at least 75% of nutritional needs from route of nutrition per ST 2. Wt stability, skin to remain intact, labs to approach WNL. Reviewed by Zoe Marsh RD
== END 2018-07-02 14:45 | DRG 871 ==
LOC: ER 23:33 → TELE 06-21 01:25 → MSI 06-21 17:45
PROVIDERS: ADMIT Internal Medicine; ATTEND Internal Medicine
PROC: 0DP6XUZ Removal of Feeding Device from Stomach, External Approach (ICD-10-PCS; principal; 2018-06-24)
DX: A41.9 Sepsis, unspecified organism (principal); J69.0 Pneumonitis due to inhalation of food and vomit; G93.40 Encephalopathy, unspecified; N39.0 Urinary tract infection, site not specified; F20.0 Paranoid schizophrenia; D50.9 Iron deficiency anemia, unspecified; M19.90 Unspecified osteoarthritis, unspecified site; K21.9 Gastro-esophageal reflux disease without esophagitis; F31.9 Bipolar disorder, unspecified; N18.9 Chronic kidney disease, unspecified; I12.9 Hypertensive chronic kidney disease with stage 1 through stage 4 chronic kidney disease, or unspecified chronic kidney disease; E11.22 Type 2 diabetes mellitus with diabetic chronic kidney disease; G40.909 Epilepsy, unspecified, not intractable, without status epilepticus; F29 Unspecified psychosis not due to a substance or known physiological condition; F03.90 Unspecified dementia, unspecified severity, without behavioral disturbance, psychotic disturbance, mood disturbance, and anxiety; R13.10 Dysphagia, unspecified; J45.909 Unspecified asthma, uncomplicated; K27.9 Peptic ulcer, site unspecified, unspecified as acute or chronic, without hemorrhage or perforation; K29.70 Gastritis, unspecified, without bleeding; T18.2XXA Foreign body in stomach, initial encounter; X58.XXXA Exposure to other specified factors, initial encounter; Y93.89 Activity, other specified; Y92.89 Other specified places as the place of occurrence of the external cause; Y99.8 Other external cause status; Z79.4 Long term (current) use of insulin; Z79.82 Long term (current) use of aspirin; Z86.73 Personal history of transient ischemic attack (TIA), and cerebral infarction without residual deficits
CPT/HCPCS: 36415-UA; 71045-TC; 80048-TC; 80053-TC; 80061-TC; 80164-TC; 80307; 80320-TC; 80329-TC; 81001-TC; 81003-TC; 82140-TC; 82948-90; 83605; 84443-TC; 85007-TC; 85025-TC; 85610-TC; 86592-TC; 87086-90; 93005; 94640; 94760; J0696; J1200; J1630; J1644; J1815; J1956; J2060; J2270; J2704; J7613; X3401; X4304; Z7506; Z7610

== ENCOUNTER 2018-10-31 18:36 | Inpatient (IN) | payer MEDICARE, BC ==
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
[2018-10-31 19:38] LABS: % BASOPHILS 0.5 % (0.0-2.0); % LYMPHOCYTES 14.7 % (20.0-50.0); % MONOCYTES 11.4 % (2.0-10.0); % NEUTROPHILS 69.4 % (40.0-80.0); BASOPHILE ABSOLUTE 0.1 Th/cumm (0-0.2); EOSINOPHILE ABSOLUTE 0.4 Th/cmm (0.1-0.4); HEMATOCRIT 37.1 % (41.0-60); HEMOGLOBIN 12.4 gm/dL (12-16); LYMPHOCYTE ABSOLUTE 1.5 Th/cmm (1.5-3.0); MEAN CELL VOLUME 86.1 fl (80-99); MEAN CORPUSCULAR HEMOGLOBIN 28.7 pg (26.0-30.0); MEAN CORPUSCULAR HGB CONC 33.3 pg (28.0-36.0); MEAN PLATELET VOLUME 7.1 fl; MONOCYTE ABSOLUTE 1.2 Th/cmm (0.3-1.0); NEUTROPHILE ABSOLUTE 6.9 Th/cmm (1.8-8.0); PLATELET COUNT 366 Th/cmm (150-400); RED BLOOD COUNT 4.31 Mil/cmm (4.30-5.70); RED CELL DISTRIBUTION WIDTH 15.6 % (11.5-20.0); WHITE BLOOD COUNT 10.1 Th/cmm (4.8-10.8)
[2018-10-31 19:40] LABS: ALB/GLOB RATIO 1.4 (1.0-1.8); ALBUMIN 3.9 gm/dL (4.2-5.5); ALKALINE PHOSPHATASE 98 U/L (34-104); ANION GAP 11.8 (7.0-16.0); BILIRUBIN,TOTAL 0.3 mg/dL (0.3-1.0); BUN - UREA NITROGEN 11 mg/dL (7-25); CALCIUM SERUM 8.9 mg/dL (8.6-10.3); CARBON DIOXIDE 29.2 mEq/L (21.0-31.0); CHLORIDE 103 mEq/L (98-107); CHOLESTEROL 128 mg/dL (<200); CREATININE - SERUM 0.7 mg/dL (0.7-1.3); GFR AFRICAN-AMERICAN > 60.0 ml/min (>90); GFR NON AFRICAN-AMERICAN > 60.0 ml/min; GLUCOSE 117 mg/dL (70-105); HDL -HIGH DENSITY LIPOPROTEIN 39 mg/dL (23-92); SGOT 13 U/L (13-39); SGPT/ALT 10 U/L (7-52); SODIUM SERUM 140 mEq/L (136-145); TOTAL PROTEIN,SERUM 6.6 gm/dL (6.0-8.3); TRIGLYCERIDES 70 mg/dL (<150)
[2018-10-31 21:08] VITALS: BP 157/85
[2018-10-31] MEDS ORDERED: Acetaminophen 500 MG TAB PO PRN (21:23)
[2018-11-01] MEDS: Albuterol/Ipratropium Neb 3 ML AERS HHN PRN (00:32)
--- NOTE | 2018-11-01 07:55 | Diagnostic Imaging Report ---
Portable chest x-ray Time: History: Cough Allowing for portable technique the heart size is normal. No focal pulmonary parenchymal processes. No hilar or mediastinal abnormalities. Impression: No acute abnormalities.
[2018-11-01] MEDS: Multivitamin w/ Minerals Tab PO SCH (08:35)
[2018-11-01] MEDS: Aspirin 81mg Chewable Tab PO SCH (08:35)
[2018-11-01] MEDS: Ferrous Sulfate 325 MG TAB PO SCH (08:35)
[2018-11-01] MEDS ORDERED: [UNRECOGNIZED DRUG - OTHER] PO SCH (09:00)
--- NOTE | 2018-11-01 15:57 | History and Physical ---
History of Present Illness - HPI Chief Complaint: Patient has been demonstrating inappropriate sexual behavior. HPI: ENDY JERNIGAN MD HISTORY AND PHYSICAL Andrew Conrad: Admit date: 10/31/2018 Date: 11/01/2018 H&P Chief complaint Patient has been demonstrating inappropriate sexual behavior. Patient has history of Right Upper Extremity Paralysis, Hypertension, Asthma, Copd, Dyslipidemia, Schizophrenia and Bipolar Disorder. Present illness 58 y/o patient was admitted to [facility] due to patient having inappropriate sexual behavior. Patient has history of Right Upper Extremity Paralysis, Hypertension, Asthma, Copd, Dyslipidemia, Schizophrenia and Bipolar Disorder. Patient was diagnosed with Inapropriate Hypersexuality Behavior, Right Upper Extremity Paralysis, Hypertension, Asthma, Copd, Dyslipidemia, Schizophrenia and Bipolar Disease. Patient was seen in ER and a complete workup was done. Patient will have a Psych consult and will be treated and monitored. I will continue to monitor patient. Patient was transferred here on October 31, 2018 for continuation of care. Review of systems Vitals: Reviewed. General: Normotensive, in no acute distress. Head: Normocephalic, no lesions. Eyes: PERRLA, EOM'S full, conjunctive clear, fundi grossly normal. Neck: Supple, no masses, no thyromegaly, no bruits. Lungs: Clear, no rales, no rhonchi, no wheezes. Heart: RR, no murmurs, no rubs, no gallops. Abdomen: Soft, no tenderness, no masses, BS normal. Musculoskeletal: Positive Right Upper Extremity Paralysis. Psych: Altered Mental Status, Hx of Schizophrenia. Skin: No rash or skin lesions noted. Neurological: Denies headache and loss of consciousness. Past medical history Right Upper Extremity Paralysis, Hypertension, Asthma, Copd, Dyslipidemia, Schizophrenia and Bipolar Disorder. Past surgical history Noncontributory. Medications Please refer to medication reconciliation sheet. Allergies No known drug allergy. Family history Noncontributory. Social history Nonsmoker, No Alcohol use, No drug abuse. Physical Exam- HEENT: Head is normocephalic, atraumatic. NECK: Supple. No JVD. No carotid bruit. CHEST: Bilateral breath sounds. No crackles. No wheezing. HEART: S1, S2 within normal limits. Regular rhythm. No murmur. No gallop. ABDOMEN: soft, non-tender, non-distended. Bowel sounds present. EXTREMITIES: Positive Right Upper Extremity Paralysis. 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 Hypertension. Asthma. Copd. Dyslipidemia. Schizophrenia. Bipolar Disorder. Plan Continuation of care Continue present meds as directed Monitor vitals, continue B/P meds Accu-check daily, continue DM meds Monitor Diet/Nutritional support Monitor mental status progression Monitor Pain, Pain Management Monitor behavioral health status Physical therapy Occupational therapy Fall precaution Safety precaution Supportive care Psyche consult/Treatment Will Monitor patient and continue current treatment plan as ordered. Vital Signs: Last Vital Signs Temp 98.3 F 11/01/18 14:00 Pulse 98 11/01/18 14:00 Resp 20 11/01/18 14:00 BP 163/83 11/01/18 14:00 Pulse Ox 94 11/01/18 14:00 Family Medical History - Family Member Mother History Unknown: Yes Ethnicity: Unknown Living Status: Unknown Hx Family Cancer: (unknown) Hx Family Coronary Artery Disease: (unknown) Hx Family Congestive Heart Failure: (unknown) Hx Family Hypertension: (unknown) Hx Family Stroke: (unknown) Hx Family Diabetes: (unknown) Hx Family Seizures: (unknown) Hx Family Dementia: (unknown) Hx Family AIDS: (unknown) Hx Family COPD: (unknown) Hx Family Hepatitis: (unknown) Hx Family Psychiatric Problems: (unknown) Hx Family Tuberculosis: (unknown) Social History Smoke: No Alcohol: None Drugs: None Lives: Senior Living Domestic Violence: Negative Health Maintenance Health Maintenance: Other - Medications Home Medications: Home Medication Medication Instructions Recorded Type Acetaminophen [Tylenol Extra 1,000 mg PO Q8HR PRN 06/20/18 History Strength] Acetaminophen [Tylenol] 650 mg PO Q6HR PRN 06/20/18 History Ascorbic Acid [Vitamin C] 500 mg PO DAILY 06/20/18 History Aspirin [Aspirin Chewable] 81 mg PO DAILY 06/20/18 History Bisacodyl [Dulcolax 10 Mg Supp] 10 mg RC DAILY PRN 06/20/18 History Docusate Sodium 100 mg GT DAILY 06/20/18 History Fleet Enema 135 ml RC Q48H PRN 06/20/18 History Insulin Aspart Sliding Scale See Protocol SUBQ Q6H 06/20/18 History [NovoLOG INSULIN SLIDING SCALE] Lactobacillus Rhamnosus GG 1 each GT DAILY 06/20/18 History [Culturelle] Lorazepam [Ativan] 0.5 mg GT Q6H PRN 06/20/18 History Magnesium Hydroxide [Milk of 30 ml GT HS PRN 06/20/18 History Magnesia] Midodrine HCl 5 mg PO TID 06/20/18 History Mupirocin Calcium [Bactroban Nasal] 2 % NS Q72H 06/20/18 History Pantoprazole Sodium [Protonix] 40 mg GT QDAC 06/20/18 History Pioglitazone HCl [Actos] 15 mg PO DAILY 06/20/18 History Potassium Chloride ER [Klor-Con] 20 meq GT DAILY 06/20/18 History QUEtiapine Fumarate ER [Seroquel 75 mg GT DAILY 06/20/18 History Xr] Zolpidem Tartrate 5 mg GT HS 06/20/18 History hydrOXYzine [Atarax*] 10 mg GT TID PRN 06/20/18 History Haloperidol Lactate [Haldol*] 2 mg IM Q6HR PRN vial 07/02/18 Rx Heparin Sodium [Heparin*] 5,000 units SUBQ Q12H vial 07/02/18 Rx Insulin Aspart Sliding Scale See Protocol SUBQ ACHS unit 07/02/18 Rx [NovoLOG INSULIN SLIDING SCALE] Lactulose [Cephulac] 30 gm PO Q6HR udc 07/02/18 Rx Lorazepam [Ativan] 1 mg PO TID tab 07/02/18 Rx Lorazepam [Ativan] 2 mg IVP Q6HR PRN vial 07/02/18 Rx Morphine Sulfate [Morphine] 1 mg IVP Q4HR PRN syr 07/02/18 Rx Morphine Sulfate [Morphine] 2 mg IVP Q4HR PRN syr 07/02/18 Rx Albuterol/Ipratropium Neb [Duoneb 3 ml HHN Q6HR PRN 10/31/18 History Neb] Ascorbic Acid [Vitamin C] 1 tab PO DAILY 10/31/18 History Cranberry Conc/C/Bacill Coag 450 mg PO DAILY 10/31/18 History [Cranberry Tablet] Divalproex DR [Lela DR] 500 mg PO BID 10/31/18 History Ferrous Sulfate 1 tab PO DAILY 10/31/18 History Haloperidol [Haldol*] 1 tab PO BID 10/31/18 History Multivitamin w/ Minerals 1 tab PO DAILY 10/31/18 History [Theragran M] Temazepam [Restoril*] 1 cap PO HS 10/31/18 History clonazePAM [klonoPIN] 0.5 mg PO BID PRN 10/31/18 History - Allergies Allergies/Adverse Reactions: Allergies Allergy/AdvReac Type Severity Reaction Status Date / Time No Known Allergies Allergy Verified 10/31/18 18:38 Review of Systems - Review of Systems Constitutional: Report: No Significant Eyes: Report: No Significant ENT: Report: No Significant Respiratory: Report: No Significant Cardiovascular: Report: No Significant Gastrointestinal: Report: No Significant Genitourinary: Report: No Significant Musculoskeletal: Report: Other (Right upper extremity paralysis.) Skin: Report: No Significant Neurological: Report: Weakness Physical Exam - Physical Exam HEENT: Report: Pharnyx within normal limits Neck: Report: Within normal limits Cardiovascular Systems: Report: Regular, Rate and Rhythm Respiratory: Report: Breath Sounds are within normal limits Abdomen: Report: Non-tender to palpation Back: Report: Inspection of back is within normal limits. Extremities: Report: Other (Paralysis of right upper extremity.) - Lab Results All Lab Results last 24 hours: Laboratory Results - last 24 hr 10/31/18 10/31/18 10/31/18 19:15 19:15 19:15 WBC 10.1 RBC 4.31 Hgb 12.4 Hct 37.1 L MCV 86.1 MCH 28.7 MCHC Differential 33.3 RDW 15.6 Plt Count 366 MPV 7.1 Neutrophils % 69.4 Lymphocytes % 14.7 L Monocytes % 11.4 H Eosinophils % 4.0 Basophils % 0.5 Sodium 140 Potassium 4.0 Chloride 103 Carbon Dioxide 29.2 Anion Gap 11.8 BUN 11 Creatinine 0.7 Est GFR ( Amer) > 60.0 Est GFR (Non-Af Amer) > 60.0 BUN/Creatinine Ratio 15.7 Glucose 117 H Calcium 8.9 Total Bilirubin 0.3 AST 13 ALT 10 Alkaline Phosphatase 98 Total Protein 6.6 Albumin 3.9 L Globulin 2.7 Albumin/Globulin Ratio 1.4 Triglycerides 70 Cholesterol 128 LDL Cholesterol Direct 87 HDL Cholesterol 39 TSH 1.21 RPR 10/31/18 19:15 WBC RBC Hgb Hct MCV MCH MCHC Differential RDW Plt Count MPV Neutrophils % Lymphocytes % Monocytes % Eosinophils % Basophils % Sodium Potassium Chloride Carbon Dioxide Anion Gap BUN Creatinine Est GFR ( Amer) Est GFR (Non-Af Amer) BUN/Creatinine Ratio Glucose Calcium Total Bilirubin AST ALT Alkaline Phosphatase Total Protein Albumin Globulin Albumin/Globulin Ratio Triglycerides Cholesterol LDL Cholesterol Direct HDL Cholesterol TSH RPR NONREACTIVE - Assessment Assessment: Inappropriate Hypersexuality Behavior. Right Upper Extremity Paralysis. Hypertension. Asthma. Copd. Dyslipidemia. Schizophrenia. Bipolar Disorder. - Plan Plan: Plan Continuation of care Continue present meds as directed Monitor vitals, continue B/P meds Accu-check daily, continue DM meds Monitor Diet/Nutritional support Monitor mental status progression Monitor Pain, Pain Management Monitor behavioral health status Physical therapy Occupational therapy Fall precaution Safety precaution Supportive care Psyche consult/Treatment Will Monitor patient and continue current treatment plan as ordered.
[2018-11-02] MEDS: Albuterol/Ipratropium Neb 3 ML AERS HHN PRN ×2 (03:45→06:28)
[2018-11-02] MEDS: Aspirin 81mg Chewable Tab PO SCH (09:14)
[2018-11-02] MEDS: Multivitamin w/ Minerals Tab PO SCH (09:15)
[2018-11-02] MEDS: Ferrous Sulfate 325 MG TAB PO SCH (09:15)
[2018-11-02] MEDS: Dexamethasone/Tobramycin Ophth Susp 2.5 mL Bottle RIGHT EYE SCH ×3 (09:24→20:53)
--- NOTE | 2018-11-02 15:45 | Psychiatric Evaluation ---
DATE OF SERVICE: 10/31/2018 CHIEF COMPLAINT: Agitation and inappropriate sexual behavior. HISTORY OF PRESENT ILLNESS: The patient is a 58-year-old male who has been under my care in [facility] for treatment of sexual inappropriate behavior and for manic behavior. The patient prior to his admission has been exhibiting increase of his sexual inappropriate behavior and the patient was grabbing female staff from sensitive area. The patient also has been agitated and has been having difficulty following directions and has been striking out when staff was trying to redirect him. He also was not able to follow directions. Staff was not able to handle his behavior and the patient was transferred to [facility] to monitor his behavior and adjust psychotropic medications. The patient has been taking Depakote and Klonopin, but it seems that it has not been sufficient to control his behavior. PAST PSYCHIATRIC HISTORY: The patient was hospitalized under my care several months ago for similar episode and similar behavior. PAST MEDICAL HISTORY: The patient has history of hypertension as well as COPD, bronchial asthma and dyslipidemia. SOCIAL HISTORY: The patient lives in [facility]. No known alcohol or drug use. ALLERGIES: No known allergies. MENTAL STATUS EXAMINATION: The patient appears older than his stated age. Restless. Irritable mood. Angry. Thought processes are circumstantial with flight of ideas. The patient seems to be preoccupied and responding. The patient is alert and oriented to the situation, but not to place or person. Impaired immediate and recent memories, but intact remote memories. Poor insight and poor judgment. ASSESSMENT: PRIMARY DIAGNOSES: Bipolar disorder, manic episode, severe, with psychotic features. MEDICAL DIAGNOSES: Hypertension, COPD, and dyslipidemia. TREATMENT PLAN: We will monitor the patient's behavior and condition closely. Also, we will start the patient on Seroquel 50 mg twice a day and will adjust the dose. Also, we will work on behavioral modification. ESTIMATED LENGTH OF STAY: 5-7 days. THE PATIENT'S STRENGTHS AND WEAKNESSES: The patient's strength is not clear at this time except that he seems to be in relatively fair health and he has support of the staff in [facility]. Weakness is his ineffective coping and poor impulse control and his sexual inappropriate behavior. AFTER DISCHARGE PLAN: The patient will return to [facility] with plans for followup there. [facility]# [id number]
--- NOTE | 2018-11-02 16:26 | Progress Notes ---
DATE: 11/02/2018 The patient is currently in the hospital, apparently exhibiting inappropriate sexual behaviors, coming in from a half-way facility. On [id number], the patient is very lethargic and drooling, slept for about 3 hours, needing suctioning of the mouth. Staff is suctioning the mouth. Ongoing agitation, episodes of sexually inappropriate behaviors, safety concerns. Not talking to me today whatsoever. Per documentation, history is schizoaffective versus bipolar. We will continue to monitor. Medications were reviewed. Ongoing safety concerns. JOB# [id number]
--- NOTE | 2018-11-02 17:10 | Progress Notes ---
DATE: 11/02/2018 SUBJECTIVE: The patient was seen in his room. The patient is asleep, but easily arousable, appears to be guarded. He still gets frustrated as intermittent behavioral outbursts. Otherwise, the patient appears to be in no acute distress. OBJECTIVE: VITAL SIGNS: Temperature 98.1, heart rate 99, blood pressure 144/81, respiration 19, 94% on room air. HEENT: Head is atraumatic and normocephalic. Eyes: Bilateral conjunctivae are clear. Bilateral pupils are equally round and reactive. NECK: Supple. No JVD. CARDIOVASCULAR: S1 and S2 without murmur. PULMONARY: Clear to auscultation. GASTROINTESTINAL: Soft and nontender without guarding. Positive bowel sounds. MUSCULOSKELETAL: No clubbing. No cyanosis noted. ASSESSMENT: 1. Bipolar disorder. 2. Hypertension. 3. Chronic obstructive pulmonary disease. 4. Hyperlipidemia. 5. Asthma. PLAN: We will continue to keep the patient inpatient Psychiatric Unit. We will follow up with a psychiatrist to monitor the patient's condition and behavior. Treatment plans were discussed with the patient's nurse. Treatment plans were discussed with Dr. Sanders. JOB# [id number]
[2018-11-03] MEDS: Albuterol/Ipratropium Neb 3 ML AERS HHN PRN ×2 (06:21→18:50)
[2018-11-03] MEDS: Ferrous Sulfate 325 MG TAB PO SCH (08:49)
[2018-11-03] MEDS: Aspirin 81mg Chewable Tab PO SCH (08:49)
[2018-11-03] MEDS: Multivitamin w/ Minerals Tab PO SCH (08:49)
--- NOTE | 2018-11-03 09:25 | Internal Medicine Prog Note ---
Internal Medicine Subjective - Subjective Patient seen and examined:: chart reviewed Patient is:: awake, confused, other (irritable) Per staff patient has:: no adverse event Internal Medicine Objective - Results Result Diagrams: 10/31/18 19:15 10/31/18 19:15 Recent Labs: Laboratory Last Values WBC 10.1 Th/cmm (4.8-10.8) 10/31/18 19:15 RBC 4.31 Mil/cmm (4.30-5.70) 10/31/18 19:15 Hgb 12.4 gm/dL (12-16) 10/31/18 19:15 Hct 37.1 % (41.0-60) L 10/31/18 19:15 MCV 86.1 fl (80-99) 10/31/18 19:15 MCH 28.7 pg (26.0-30.0) 10/31/18 19:15 MCHC Differential 33.3 pg (28.0-36.0) 10/31/18 19:15 RDW 15.6 % (11.5-20.0) 10/31/18 19:15 Plt Count 366 Th/cmm (150-400) 10/31/18 19:15 MPV 7.1 fl 10/31/18 19:15 Neutrophils % 69.4 % (40.0-80.0) 10/31/18 19:15 Lymphocytes % 14.7 % (20.0-50.0) L 10/31/18 19:15 Monocytes % 11.4 % (2.0-10.0) H 10/31/18 19:15 Eosinophils % 4.0 % (0.0-5.0) 10/31/18 19:15 Basophils % 0.5 % (0.0-2.0) 10/31/18 19:15 Sodium 140 mEq/L (136-145) 10/31/18 19:15 Potassium 4.0 mEq/L (3.5-5.1) 10/31/18 19:15 Chloride 103 mEq/L (98-107) 10/31/18 19:15 Carbon Dioxide 29.2 mEq/L (21.0-31.0) 10/31/18 19:15 Anion Gap 11.8 (7.0-16.0) 10/31/18 19:15 BUN 11 mg/dL (7-25) 10/31/18 19:15 Creatinine 0.7 mg/dL (0.7-1.3) 10/31/18 19:15 Est GFR ( Amer) > 60.0 ml/min (>90) 10/31/18 19:15 Est GFR (Non-Af Amer) > 60.0 ml/min 10/31/18 19:15 BUN/Creatinine Ratio 15.7 10/31/18 19:15 Glucose 117 mg/dL (70-105) H 10/31/18 19:15 Calcium 8.9 mg/dL (8.6-10.3) 10/31/18 19:15 Total Bilirubin 0.3 mg/dL (0.3-1.0) 10/31/18 19:15 AST 13 U/L (13-39) 10/31/18 19:15 ALT 10 U/L (7-52) 10/31/18 19:15 Alkaline Phosphatase 98 U/L (34-104) 10/31/18 19:15 Total Protein 6.6 gm/dL (6.0-8.3) 10/31/18 19:15 Albumin 3.9 gm/dL (4.2-5.5) L 10/31/18 19:15 Globulin 2.7 gm/dL 10/31/18 19:15 Albumin/Globulin Ratio 1.4 (1.0-1.8) 10/31/18 19:15 Triglycerides 70 mg/dL (<150) 10/31/18 19:15 Cholesterol 128 mg/dL (<200) 10/31/18 19:15 LDL Cholesterol Direct 87 mg/dL (75-193) 10/31/18 19:15 HDL Cholesterol 39 mg/dL (23-92) 10/31/18 19:15 TSH 1.21 uIU/ml (0.34-5.60) 10/31/18 19:15 RPR NONREACTIVE (NONREACTIVE) 10/31/18 19:15 - Physical Exam Vitals and I&O: Vital Signs Temp 97.8 F 11/03/18 05:54 Pulse 103 11/03/18 06:20 Resp 18 11/03/18 06:20 BP 118/68 11/03/18 05:54 Pulse Ox 91 02/17/19 06:20 Intake & Output 11/02/18 11/03/18 11/03/18 18:59 06:59 18:59 Intake Total 240 Balance 240 Intake: Oral 240 Other: # Voids 2 Active Medications: Current Medications Acetaminophen (Tylenol) 650 mg PO Q6HR PRN PRN Reason: Pain or Fever >101 Stop: 12/30/18 21:22 Acetaminophen (Tylenol Extra Strength) 1,000 mg PO Q8HR PRN PRN Reason: Pain (Moderate) Stop: 12/30/18 21:22 Albuterol/Ipratropium (Duoneb Neb) 3 ml HHN Q6HR PRN PRN Reason: Shortness of Breath or Wheeze Stop: 12/30/18 21:22 Last Admin: 11/03/18 06:21 Dose: 3 ml Ascorbic Acid (Vitamin C) 500 mg PO DAILY [facility] Stop: 12/31/18 08:59 Last Admin: 11/03/18 08:49 Dose: 500 mg Aspirin (Aspirin Chewable) 81 mg PO DAILY [facility] Stop: 12/31/18 08:59 Last Admin: 11/03/18 08:49 Dose: 81 mg Clonazepam (Klonopin) 0.5 mg PO BID PRN; Protocol PRN Reason: Agitation Stop: 12/30/18 21:24 Last Admin: 11/02/18 21:02 Dose: 0.5 mg Divalproex Sodium (Depakote Dr) 500 mg PO BID [facility]; Protocol Stop: 12/31/18 08:59 Last Admin: 11/03/18 08:49 Dose: 500 mg Docusate Sodium (Colace) 100 mg PO BID [facility] Stop: 12/31/18 08:59 Last Admin: 11/02/18 16:25 Dose: 100 mg Ferrous Sulfate (Iron) 325 mg PO DAILY [facility] Stop: 12/31/18 08:59 Last Admin: 11/03/18 08:49 Dose: 325 mg Midodrine (Proamatine) 5 mg PO TID [facility] Stop: 12/31/18 08:59 Last Admin: 11/02/18 20:53 Dose: 5 mg Mupirocin (Bactroban Oint) 1 appl NS BID [facility] Stop: 11/06/18 17:01 Last Admin: 11/02/18 16:26 Dose: 1 appl Quetiapine Fumarate (Seroquel) 50 mg PO BID [facility]; Protocol Stop: 12/31/18 16:59 Last Admin: 11/03/18 08:49 Dose: 50 mg Temazepam (Restoril) 15 mg PO HS WIN[facility]; Protocol Stop: 12/31/18 20:59 Last Admin: 11/02/18 20:53 Dose: 15 mg Tobramycin/Dexamethasone (Tobradex 0.1%-0.3% Ophth Susp 2.5ml) 1 drop RIGHT EYE TID [facility]RED Stop: 11/06/18 08:59 Last Admin: 11/02/18 20:53 Dose: 1 drop General: alert (behaviour outburst) HEENT: NC/AT Neck: Supple Lungs: CTAB Cardiovascular: RRR, Normal S1, Normal S2 Abdomen: soft Extremities: clear Neurological: no change - Procedures Procedures: Procedures Procedure Code Date ASSISTANCE WITH RESPIRATORY VENTILATION, <24 HRS, CPAP [id number] 06/01/18 REMOVAL OF FEEDING DEVICE FROM STOMACH, EXTERNAL APPROACH [id number] 06/21/18 Internal Medicine Assmt/Plan - Assessment Assessment: Inappropriate Hypersexuality Behavior. Right Upper Extremity Paralysis. Hypertension. Asthma. Copd. Dyslipidemia. Schizophrenia. Bipolar Disorder. - Plan Plan: Plan Continuation of care Continue present meds as directed Monitor vitals, continue B/P meds Accu-check daily, continue DM meds Monitor Diet/Nutritional support Monitor mental status progression Monitor Pain, Pain Management Monitor behavioral health status Physical therapy Occupational therapy Fall precaution Safety precaution Supportive care Psyche consult/Treatment Will Monitor patient and continue current treatment plan as ordered.
--- NOTE | 2018-11-03 14:25 | Progress Notes ---
DATE: 11/03/2018 SUBJECTIVE: A 58-year-old male, currently coming from [facility], sexual inappropriate behaviors, impulsive, unpredictable, striking out. The patient is calmer today. No agitation, sitting in his Sara chair, some ramblings ongoing, confused, disoriented, ongoing concerns about impulsivities, ongoing psychotic symptoms. Medications were noted. Still with excessive mucus production, but allowing staff to suction. The patient currently on Seroquel and low dose of his Depakote. ASSESSMENT: The patient remains impulsive, unpredictable, ongoing concerns about striking out, sexually inappropriate behaviors. PLAN: We will continue to monitor, monitor on an inpatient setting, titrate medications. JOB# [id number]
[2018-11-03] MEDS: Dexamethasone/Tobramycin Ophth Susp 2.5 mL Bottle RIGHT EYE SCH ×2 (16:24→20:58)
[2018-11-03] MEDS ORDERED: Haloperidol Lactate 5 mg/mL 1mL Vial IM ONE (21:10)
--- NOTE | 2018-11-04 09:16 | Diagnostic Imaging Report ---
Portable chest x-ray HISTORY: Shortness of breath The heart size is normal. No focal pulmonary processes. No hilar or mediastinal abnormalities. IMPRESSION: No acute abnormality
[2018-11-04] MEDS: Dexamethasone/Tobramycin Ophth Susp 2.5 mL Bottle RIGHT EYE SCH ×2 (09:20→14:23)
[2018-11-04] MEDS: Aspirin 81mg Chewable Tab PO SCH (09:24)
[2018-11-04] MEDS: Ferrous Sulfate 325 MG TAB PO SCH (09:25)
[2018-11-04] MEDS: Multivitamin w/ Minerals Tab PO SCH (09:25)
--- NOTE | 2018-11-04 10:32 | Internal Medicine Prog Note ---
Internal Medicine Subjective - Subjective Service Date: 11/04/18 Patient seen and examined:: with staff, chart reviewed Patient is:: awake, agitated, confused, other (Remains unpredictable, impulsive and unpredictable.) Patient Complaints of:: SOB Per staff patient has:: no adverse event, no episodes of fall, agitated ( Striking out, sexually inappropriate behaviors.), confused Internal Medicine Objective - Results Result Diagrams: 10/31/18 19:15 10/31/18 19:15 Recent Labs: Laboratory Last Values WBC 10.1 Th/cmm (4.8-10.8) 10/31/18 19:15 RBC 4.31 Mil/cmm (4.30-5.70) 10/31/18 19:15 Hgb 12.4 gm/dL (12-16) 10/31/18 19:15 Hct 37.1 % (41.0-60) L 10/31/18 19:15 MCV 86.1 fl (80-99) 10/31/18 19:15 MCH 28.7 pg (26.0-30.0) 10/31/18 19:15 MCHC Differential 33.3 pg (28.0-36.0) 10/31/18 19:15 RDW 15.6 % (11.5-20.0) 10/31/18 19:15 Plt Count 366 Th/cmm (150-400) 10/31/18 19:15 MPV 7.1 fl 10/31/18 19:15 Neutrophils % 69.4 % (40.0-80.0) 10/31/18 19:15 Lymphocytes % 14.7 % (20.0-50.0) L 10/31/18 19:15 Monocytes % 11.4 % (2.0-10.0) H 10/31/18 19:15 Eosinophils % 4.0 % (0.0-5.0) 10/31/18 19:15 Basophils % 0.5 % (0.0-2.0) 10/31/18 19:15 Sodium 140 mEq/L (136-145) 10/31/18 19:15 Potassium 4.0 mEq/L (3.5-5.1) 10/31/18 19:15 Chloride 103 mEq/L (98-107) 10/31/18 19:15 Carbon Dioxide 29.2 mEq/L (21.0-31.0) 10/31/18 19:15 Anion Gap 11.8 (7.0-16.0) 10/31/18 19:15 BUN 11 mg/dL (7-25) 10/31/18 19:15 Creatinine 0.7 mg/dL (0.7-1.3) 10/31/18 19:15 Est GFR ( Amer) > 60.0 ml/min (>90) 10/31/18 19:15 Est GFR (Non-Af Amer) > 60.0 ml/min 10/31/18 19:15 BUN/Creatinine Ratio 15.7 10/31/18 19:15 Glucose 117 mg/dL (70-105) H 10/31/18 19:15 Calcium 8.9 mg/dL (8.6-10.3) 10/31/18 19:15 Total Bilirubin 0.3 mg/dL (0.3-1.0) 10/31/18 19:15 AST 13 U/L (13-39) 10/31/18 19:15 ALT 10 U/L (7-52) 10/31/18 19:15 Alkaline Phosphatase 98 U/L (34-104) 10/31/18 19:15 Total Protein 6.6 gm/dL (6.0-8.3) 10/31/18 19:15 Albumin 3.9 gm/dL (4.2-5.5) L 10/31/18 19:15 Globulin 2.7 gm/dL 10/31/18 19:15 Albumin/Globulin Ratio 1.4 (1.0-1.8) 10/31/18 19:15 Triglycerides 70 mg/dL (<150) 10/31/18 19:15 Cholesterol 128 mg/dL (<200) 10/31/18 19:15 LDL Cholesterol Direct 87 mg/dL (75-193) 10/31/18 19:15 HDL Cholesterol 39 mg/dL (23-92) 10/31/18 19:15 TSH 1.21 uIU/ml (0.34-5.60) 10/31/18 19:15 RPR NONREACTIVE (NONREACTIVE) 10/31/18 19:15 - Physical Exam Vitals and I&O: Vital Signs Temp 97.8 F 11/04/18 06:20 Pulse 79 11/04/18 08:05 Resp 16 11/04/18 08:05 BP 112/65 11/04/18 06:20 Pulse Ox 96 11/04/18 08:05 Intake & Output 11/03/18 11/04/18 11/04/18 18:59 06:59 18:59 Intake Total 700 360 Output Total 2 Balance 700 358 Intake: Oral 700 360 Output: Urine/Stool Mix 2 Other: # Voids 3 1 # Bowel Movements 0 1 Active Medications: Current Medications Acetaminophen (Tylenol) 650 mg PO Q6HR PRN PRN Reason: Pain or Fever >101 Stop: 12/30/18 21:22 Acetaminophen (Tylenol Extra Strength) 1,000 mg PO Q8HR PRN PRN Reason: Pain (Moderate) Stop: 12/30/18 21:22 Last Admin: 11/03/18 16:46 Dose: 1,000 mg Albuterol/Ipratropium (Duoneb Neb) 3 ml HHN Q6HR PRN PRN Reason: Shortness of Breath or Wheeze Stop: 12/30/18 21:22 Last Admin: 11/03/18 18:50 Dose: 3 ml Ascorbic Acid (Vitamin C) 500 mg PO DAILY COUNTS INCLUDE 234 BEDS AT [facility] Stop: 12/31/18 08:59 Last Admin: 11/04/18 09:24 Dose: Not Given Aspirin (Aspirin Chewable) 81 mg PO DAILY COUNTS INCLUDE 234 BEDS AT [facility] Stop: 12/31/18 08:59 Last Admin: 11/04/18 09:24 Dose: Not Given Clonazepam (Klonopin) 0.5 mg PO BID PRN; Protocol PRN Reason: Agitation Stop: 12/30/18 21:24 Last Admin: 11/03/18 16:46 Dose: 0.5 mg Divalproex Sodium (Depakote Dr) 500 mg PO BID COUNTS INCLUDE 234 BEDS AT [facility]; Protocol Stop: 12/31/18 08:59 Last Admin: 11/04/18 09:24 Dose: Not Given Docusate Sodium (Colace) 100 mg PO BID COUNTS INCLUDE 234 BEDS AT [facility] Stop: 12/31/18 08:59 Last Admin: 11/04/18 09:25 Dose: Not Given Ferrous Sulfate (Iron) 325 mg PO DAILY COUNTS INCLUDE 234 BEDS AT [facility] Stop: 12/31/18 08:59 Last Admin: 11/04/18 09:25 Dose: Not Given Midodrine (Proamatine) 5 mg PO TID COUNTS INCLUDE 234 BEDS AT [facility] Stop: 12/31/18 08:59 Last Admin: 11/04/18 09:25 Dose: Not Given Mupirocin (Bactroban Oint) 1 appl NS BID COUNTS INCLUDE 234 BEDS AT [facility] Stop: 11/06/18 17:01 Last Admin: 11/03/18 16:46 Dose: Not Given Quetiapine Fumarate (Seroquel) 50 mg PO BID COUNTS INCLUDE 234 BEDS AT [facility]; Protocol Stop: 12/31/18 16:59 Last Admin: 11/04/18 09:25 Dose: Not Given Temazepam (Restoril) 15 mg PO HS COUNTS INCLUDE 234 BEDS AT [facility]; Protocol Stop: 12/31/18 20:59 Last Admin: 11/03/18 20:58 Dose: Not Given Tobramycin/Dexamethasone (Tobradex 0.1%-0.3% Ophth Susp 2.5ml) 1 drop RIGHT EYE TID COUNTS INCLUDE 234 BEDS AT THE [facility] Stop: 11/06/18 08:59 Last Admin: 11/03/18 20:58 Dose: Not Given General: alert (behaviour outburst) HEENT: NC/AT Neck: Supple, No JVD Lungs: CTAB Cardiovascular: RRR, Normal S1, Normal S2 Abdomen: soft Extremities: clear Neurological: no change - Procedures Procedures: Procedures Procedure Code Date ASSISTANCE WITH RESPIRATORY VENTILATION, <24 HRS, CPAP [id number] 06/01/18 REMOVAL OF FEEDING DEVICE FROM STOMACH, EXTERNAL APPROACH [id number] 06/21/18 Internal Medicine Assmt/Plan - Assessment Assessment: Concerns about striking out, Inappropriate Hypersexuality Behavior. Dis-oriented, Ongoing Psychotic symptoms. Right Upper Extremity Paralysis. Hypertension. Asthma. Copd. Dyslipidemia. Schizophrenia. Bipolar Disorder. - Plan Plan: Plan Continuation of care Continue present meds as directed Monitor vitals, continue B/P meds Accu-check daily, continue DM meds Monitor Diet/Nutritional support Monitor mental status progression Monitor Pain, Pain Management Monitor behavioral health status Physical therapy Occupational therapy Fall precaution Safety precaution Supportive care Will Followup with Psych to monitor patient Will Monitor patient and continue current treatment plan as ordered. Nutritional Asmnt/Malnutr-PDOC - Dietary Evaluation Malnutrition Findings (Please click <Entered> for more info): see orders
--- NOTE | 2018-11-05 14:05 | Discharge Summary ---
DATE OF DISCHARGE: 11/04/2018 PATIENT'S AGE: 58. SEX: Male. PHYSICIAN: Jose F Carrion M.D., M.P.H. FINAL DIAGNOSES: PRIMARY DIAGNOSIS: Unspecified psychosis. MEDICAL DIAGNOSIS: Aspiration pneumonia REASON FOR HOSPITALIZATION: The patient was admitted to the hospital because of increased agitation and irritability. HOSPITAL COURSE: The patient was extremely irritable and agitation and was not cooperative with his treatment. While in the hospital, the patient developed pneumonia and the patient was transferred to Med/Surg hospital. Physical examination of the patient showed that the patient has hypertension and possible aspiration pneumonia and the patient transferred to the medical floor. AFTER DISCHARGE PLANS: The patient transferred to medical floor with plans for treatment there. EXPECTED OUTCOME AFTER DISCHARGE: Based on his poor improvement in Med/Surg. [facility]# [id number]
== END 2018-11-04 16:00 | disposition short-term general hospital (02) | DRG 885 ==
LOC: ER 18:36 → GERO 18:50
PROVIDERS: ADMIT Psychiatry & Neurology Psychiatry; ATTEND Psychiatry & Neurology Psychiatry
DX: F31.2 Bipolar disorder, current episode manic severe with psychotic features (principal); J69.0 Pneumonitis due to inhalation of food and vomit; I10 Essential (primary) hypertension; E78.5 Hyperlipidemia, unspecified; G83.21 Monoplegia of upper limb affecting right dominant side; J44.9 Chronic obstructive pulmonary disease, unspecified
CPT/HCPCS: 36415-UA; 71045-TC; 80053-TC; 80061-TC; 83036-90; 84443-TC; 85025-TC; 86592-TC; 93005; 94640; 94760; J1200; J1630; J2060; X3401; Z7610

== ENCOUNTER 2018-11-04 15:51 | Inpatient (IN) | payer MEDICARE, BC ==
[2018-11-04] MEDS ORDERED: Acetaminophen 500 MG TAB PO PRN (16:26)
[2018-11-04] MEDS ORDERED: Albuterol/Ipratropium Neb 3 ML AERS HHN PRN (16:26)
[2018-11-04] MEDS ORDERED: Morphine Sulfate 2 mg/mL 1mL Syr IVP PRN ×2 (16:26)
[2018-11-04] MEDS ORDERED: Fleet Enema 135 mL RC PRN (16:26)
[2018-11-04] MEDS ORDERED: Magnesium Hydroxide (MOM) 30 mL UDC GT PRN (16:26)
[2018-11-04] MEDS ORDERED: MUPIROCIN CALCIUM 2% NS SCH (16:30)
[2018-11-04 16:46] VITALS: BP 135/82
[2018-11-04] MEDS: Dexamethasone/Tobramycin Ophth Susp 2.5 mL Bottle RIGHT EYE SCH (21:36)
[2018-11-05] MEDS: Lactulose 10 Gm/15 mL 30mL UDC PO SCH ×4 (01:46→17:15)
[2018-11-05 05:43] LABS: ANION GAP 17.4 (7.0-16.0); BUN - UREA NITROGEN 16 mg/dL (7-25); CALCIUM SERUM 9.3 mg/dL (8.6-10.3); CARBON DIOXIDE 27.2 mEq/L (21.0-31.0); CHLORIDE 104 mEq/L (98-107); CREATININE - SERUM 0.7 mg/dL (0.7-1.3); GFR AFRICAN-AMERICAN > 60.0 ml/min (>90); GFR NON AFRICAN-AMERICAN > 60.0 ml/min; GLUCOSE 93 mg/dL (70-105); POTASSIUM SERUM 4.6 mEq/L (3.5-5.1); SODIUM SERUM 144 mEq/L (136-145)
[2018-11-05 05:44] LABS: INR 0.95 (0.5-1.4); PROTHROMBIN TIME (TEST) 9.9 SECONDS (9.5-11.5)
[2018-11-05 05:55] LABS: MEAN CELL VOLUME 87.1 fl (80-99); MEAN PLATELET VOLUME 7.9 fl
[2018-11-05 06:02] LABS: HEMATOCRIT 37.5 % (41.0-60); HEMOGLOBIN 12.5 gm/dL (12-16); MEAN CORPUSCULAR HEMOGLOBIN 29.1 pg (26.0-30.0); MEAN CORPUSCULAR HGB CONC 33.3 pg (28.0-36.0); PLATELET COUNT 357 Th/cmm (150-400); RED CELL DISTRIBUTION WIDTH 15.8 % (11.5-20.0); WHITE BLOOD COUNT 14.8 Th/cmm (4.8-10.8)
[2018-11-05] MEDS: D5-0.45NS 1,000 ML IV SCH ×2 (06:06→22:02)
[2018-11-05] MEDS ORDERED: Pantoprazole 40 mg/Packet GT SCH (07:30)
[2018-11-05 08:11] LABS: BAND NEUTROPHILE 1 % (0-10); BASOPHIL 0 % (0-3); EOSINOPHIL 0 % (0-5); LYMPHOCYTE 6 % (20-50); MONOCYTE 8 % (2-10); NEUTROPHILS 85 % (40-80)
[2018-11-05] MEDS: Dexamethasone/Tobramycin Ophth Susp 2.5 mL Bottle RIGHT EYE SCH ×3 (09:00→20:25)
[2018-11-05] MEDS ORDERED: [UNRECOGNIZED DRUG - OTHER] PO SCH (09:00)
[2018-11-05] MEDS: Aspirin 81mg Chewable Tab PO SCH (09:01)
[2018-11-05] MEDS: Potassium Chloride 20 mEq ER Tab PO SCH (09:02)
[2018-11-05] MEDS: Lactobacillus Rhamnosus GG 15 Billion CFU CAP.SPRINK GT SCH (09:02)
[2018-11-05] MEDS: Multivitamin w/ Minerals Tab PO SCH (09:02)
[2018-11-05] MEDS: Ferrous Sulfate 325 MG TAB PO SCH (09:02)
[2018-11-05] MEDS: Valproate Sodium 500 MG in Sodium Chloride 0.9% 100 ML IV SCH ×2 (11:15→20:20)
--- NOTE | 2018-11-05 14:09 | Progress Notes ---
DATE: SUBJECTIVE: Chart reviewed and the patient interviewed. Also discussed the patient's condition with the staff and reviewed records and labs. The patient is still in angry mood and is still striking out and kicking and trying to hit staff. Also, the patient is restless and uncooperative. The patient also is placed on aspiration precautions because of possible aspiration, especially with his agitation and inability to follow directions. Otherwise, the patient is cooperative with his treatment at times. ASSESSMENT: The patient is still agitated and psychotic. TREATMENT PLAN: Continue to monitor his behavior and his condition closely. Also, continue to follow up closely. JOB# [id number]
--- NOTE | 2018-11-05 17:16 | History & Physical ---
ADMIT DATE: 11/05/2018 CHIEF COMPLAINT: Transfer from [facility] Unit due to failing swallow evaluation study. HISTORY OF PRESENT ILLNESS: This is a 58-year-old male who is a [facility] resident, transferred from [facility] Unit due to failing swallow evaluation study. No reports of any fevers at the Geropsych Unit. PAST MEDICAL HISTORY: Right upper extremity paralysis, hypertension, asthma, COPD, dyslipidemia, schizophrenia, bipolar disorder. PAST SURGICAL HISTORY: Unknown. ALLERGIES: No known allergies. MEDICATIONS: See medication list. REVIEW OF SYSTEMS: Unable to obtain, the patient is confused. PHYSICAL EXAMINATION: GENERAL: Elderly male, awake, confused, in no apparent distress. VITAL SIGNS: Temperature 98.6, heart rate 114, blood pressure 124/75, respirations 22, O2 93%. HEENT: Head normocephalic, atraumatic. NECK: Supple. No mass. LUNGS: Clear bilaterally. HEART: Regular rhythm. ABDOMEN: Soft, nontender. LABORATORY DATA: WBC 14.8, H and H 12.5 and 37.5, platelets 357. Sodium 144, potassium 4.6, chloride 104, BUN 16, creatinine 0.7. ASSESSMENT: Dysphagia, history of right upper extremity paralysis, hypertension, asthma, chronic obstructive pulmonary disease, dyslipidemia, schizophrenia, bipolar disorder, leukocytosis, moderate protein-calorie malnutrition. PLAN: The patient to be admitted to the med/surg unit. Aspiration precautions will be initiated. We will get GI consultation for possible PEG. IV fluids for hydration. We will continue to monitor this patient. JOB# [id number]
--- NOTE | 2018-11-05 19:25 | Consultation ---
DATE OF CONSULTATION: 11/05/2018 REQUESTING PHYSICIAN: Dr. Sanders. REASON FOR CONSULTATION: Dysphagia. Thank you for asking me to see this patient in consultation. HISTORY OF PRESENT ILLNESS: This is a 58-year-old male with complicated schizophrenia and bipolar disorder, who presents as a transfer from [facility] for dysphagia. The patient has been unable to tolerate food for some reason, most likely from agitation and psychosis. The patient has had a history of G-tube placement in the past; however, this was removed at some point due to the patient being able to tolerate p.o. The details of his intolerance to p.o. and why is a little bit unclear at this point. The patient had a swallow evaluation per charge nurse this morning; however, I do not see any documentation of this, in which he "failed." Attempts have been made to reach his legal guardian as well, Nisreen Gillespie, have been unsuccessful by me this afternoon. PAST MEDICAL HISTORY: Psychosis/schizophrenia. MEDICATIONS: Have been reviewed. SOCIAL HISTORY: Unobtainable given the patient's current state. REVIEW OF SYSTEMS: Unobtainable given the patient's current state, but states clearly "I do not want the tube." PHYSICAL EXAMINATION: VITAL SIGNS: Temperature of 98, pulse of 84, respiratory rate of 19, and blood pressure is 122/69. GENERAL: The patient is alert and oriented x0. Generally, he is in no acute distress. HEENT: Normocephalic, atraumatic. PERRL positive. LUNGS: Clear bilaterally. No wheezes, rales, or rhonchi. HEART: Regular rate and rhythm, normal S1, S2. ABDOMEN: Soft, nontender, bowel sounds are positive. 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 EXTREMITIES: Show no lower extremity edema. PSYCHOLOGICAL: Alert, but disoriented. LABORATORY DATA: Hemoglobin of 12.5 and white count of 14.8. INR 0.9. ASSESSMENT AND PLAN: This is a 58-year-old male with complicated schizophrenia history and psychosis, who presents with worsening dysphagia and poor p.o. intake. 1. Dysphagia, suspect possibly oropharyngeal. 2. Failed swallow study. 3. Severe psychosis and schizophrenia. 4. Poor p.o. intake. The patient currently is requesting not to have feeding tube in place; however, has been unable to pass a swallow evaluation. We will await these records exactly, but I would recommend possibly a video fluoroscopy study to see if his mechanics can be improved and learnt as opposed to trying to force having a feeding tube placed in this patient. If, however, he fails swallow workup and dysphagia is ongoing, then we will request guardianship to consent for an EGD with PEG tube placement. We will continue to follow alongside with you. Thank you for allowing us to participate in this patient's care. [facility]# [id number]
--- NOTE | 2018-11-05 21:32 | Progress Notes ---
DATE: 11/05/2018 Chart reviewed and the patient interviewed. Also discussed the patient's condition with the staff and reviewed records and labs. The patient is still in irritable mood and is still confused. The patient also still has mittens because he is trying to pull IVs. Also still aggressive with the staff when they tried to help him with his ADLs. Otherwise, the patient is compliant with medications. The patient was taking Ativan 2 mg on a p.r.n. basis and the dose decreased to 1 mg every 6 hours on a p.r.n. basis. Also continue adjusting psychotropic medications and follow up closely. JOB# [id number]
[2018-11-06] MEDS: Lactulose 10 Gm/15 mL 30mL UDC PO SCH ×4 (00:48→17:08)
[2018-11-06] MEDS: D5-0.45NS 1,000 ML IV SCH ×2 (05:54→21:43)
[2018-11-06] MEDS: Dexamethasone/Tobramycin Ophth Susp 2.5 mL Bottle RIGHT EYE SCH ×3 (09:00→21:32)
[2018-11-06] MEDS: Valproate Sodium 500 MG in Sodium Chloride 0.9% 100 ML IV SCH ×2 (09:13→20:57)
[2018-11-06] MEDS: Ferrous Sulfate 325 MG TAB PO SCH (09:16)
[2018-11-06] MEDS: Aspirin 81mg Chewable Tab PO SCH (09:16)
[2018-11-06] MEDS: Multivitamin w/ Minerals Tab PO SCH (09:16)
[2018-11-06] MEDS: Lactobacillus Rhamnosus GG 15 Billion CFU CAP.SPRINK GT SCH (09:16)
[2018-11-06] MEDS: Potassium Chloride 20 mEq ER Tab PO SCH (09:17)
--- NOTE | 2018-11-06 09:38 | Diagnostic Imaging Report ---
Barium swallow HISTORY: Aspiration The exam is limited to overhead radiographs. Evaluation limited due to difficulty in patient cooperation, mobility and positioning. Barium administered orally. The exam demonstrates extensive aspiration originating from the hypopharyngeal region. Barium noted within the trachea and branches of the right and left bronchi. IMPRESSION: 1. Extensive aspiration
--- NOTE | 2018-11-06 09:39 | Diagnostic Imaging Report ---
Portable chest x-ray HISTORY: Cough, aspiration The exam demonstrates residual barium within the trachea and right and left main bronchi related to the earlier barium swallow examination. No acute focal bony parenchymal processes. The heart size is normal. IMPRESSION: 1. Radiopaque contrast within the trachea and right and left main bronchi related to patient's earlier barium swallow and associated aspiration.
--- NOTE | 2018-11-06 12:27 | Internal Medicine Prog Note ---
Internal Medicine Subjective - Subjective Service Date: 11/06/18 Patient seen and examined:: with staff (/), chart reviewed Patient is:: awake, verbal, talking, agitated, confused Patient Complaints of:: other (Dysphagia.) Per staff patient has:: no adverse event, no episodes of fall, poor oral intake , agitated, confused Internal Medicine Objective - Results Result Diagrams: 11/05/18 05:15 11/05/18 05:15 Recent Labs: Laboratory Last Values WBC 14.8 Th/cmm (4.8-10.8) H 11/05/18 05:15 RBC 4.30 Mil/cmm (4.30-5.70) 11/05/18 05:15 Hgb 12.5 gm/dL (12-16) 11/05/18 05:15 Hct 37.5 % (41.0-60) L 11/05/18 05:15 MCV 87.1 fl (80-99) 11/05/18 05:15 MCH 29.1 pg (26.0-30.0) 11/05/18 05:15 MCHC Differential 33.3 pg (28.0-36.0) 11/05/18 05:15 RDW 15.8 % (11.5-20.0) 11/05/18 05:15 Plt Count 357 Th/cmm (150-400) 11/05/18 05:15 MPV 7.9 fl 11/05/18 05:15 Add Manual Diff YES 11/05/18 05:15 Band Neutrophils % 1 % (0-10) 11/05/18 05:15 Neutrophils (Manual) 85 % (40-80) H 11/05/18 05:15 Lymphocytes 6 % (20-50) L 11/05/18 05:15 Monocytes 8 % (2-10) 11/05/18 05:15 Eosinophils 0 % (0-5) 11/05/18 05:15 Basophils 0 % (0-3) 11/05/18 05:15 PT 9.9 SECONDS (9.5-11.5) 11/05/18 05:15 INR 0.95 (0.5-1.4) 11/05/18 05:15 Sodium 144 mEq/L (136-145) 11/05/18 05:15 Potassium 4.6 mEq/L (3.5-5.1) 11/05/18 05:15 Chloride 104 mEq/L (98-107) 11/05/18 05:15 Carbon Dioxide 27.2 mEq/L (21.0-31.0) 11/05/18 05:15 Anion Gap 17.4 (7.0-16.0) H 11/05/18 05:15 BUN 16 mg/dL (7-25) 11/05/18 05:15 Creatinine 0.7 mg/dL (0.7-1.3) 11/05/18 05:15 Est GFR ( Amer) > 60.0 ml/min (>90) 11/05/18 05:15 Est GFR (Non-Af Amer) > 60.0 ml/min 11/05/18 05:15 BUN/Creatinine Ratio 22.9 11/05/18 05:15 Glucose 93 mg/dL (70-105) 11/05/18 05:15 Calcium 9.3 mg/dL (8.6-10.3) 11/05/18 05:15 - Physical Exam Vitals and I&O: Vital Signs Temp 97.1 F 11/06/18 11:35 Pulse 68 11/06/18 11:35 Resp 19 11/06/18 11:35 BP 121/69 11/06/18 11:35 Pulse Ox 97 11/06/18 11:35 Intake & Output 11/05/18 11/06/18 11/06/18 18:59 06:59 18:59 Intake Total 1105 786.667 105 Balance 1105 786.667 105 Weight (lbs) 77.111 kg 77.111 kg Intake: Intake, IV Amount 1105 786.667 105 D5-0.45NS 1,000 ml @ 100 1000 786.667 mls/hr IV .Q10H [facility] Rx#: [id number] Valproate Sodium 500 mg 105 105 In Sodium Chloride 0.9% 100 ml @ 100 mls/hr IV Q12HR [facility] Rx#:[id number] Other: # Voids 3 3 # Bowel Movements 0 Stool Characteristics Soft Soft Formed Formed Weight Source Bedscale Bedscale Active Medications: Current Medications Acetaminophen (Tylenol) 650 mg PO Q6HR PRN PRN Reason: Mild Pain or Fever >101 Stop: 01/03/19 16:25 Acetaminophen (Tylenol Extra Strength) 1,000 mg PO Q8HR PRN PRN Reason: Pain (Moderate) Stop: 01/03/19 16:25 Albuterol/Ipratropium (Duoneb Neb) 3 ml HHN Q6HR PRN PRN Reason: Shortness of Breath or Wheeze Stop: 01/03/19 16:25 Ascorbic Acid (Vitamin C) 500 mg PO DAILY [facility] Stop: 01/04/19 08:59 Last Admin: 11/06/18 09:16 Dose: Not Given Aspirin (Aspirin Chewable) 81 mg PO DAILY [facility] Stop: 01/04/19 08:59 Last Admin: 11/06/18 09:16 Dose: Not Given Bisacodyl (Dulcolax 10 Mg Supp) 10 mg RC DAILY PRN PRN Reason: Constipation Stop: 01/03/19 16:25 Clonazepam (Klonopin) 0.5 mg PO BID PRN; Protocol PRN Reason: Agitation Stop: 01/03/19 16:25 Docusate Sodium (Colace) 100 mg PO BID [facility] Stop: 01/03/19 16:59 Last Admin: 11/06/18 09:16 Dose: Not Given Ferrous Sulfate (Iron) 325 mg PO DAILY [facility] Stop: 01/04/19 08:59 Last Admin: 11/06/18 09:16 Dose: Not Given Haloperidol (Haldol) 5 mg PO BID [facility]; Protocol Stop: 01/03/19 16:59 Last Admin: 11/06/18 10:43 Dose: Not Given Haloperidol Lactate (Haldol) 2 mg IM Q6HR PRN PRN Reason: Agitation Stop: 01/03/19 16:25 Haloperidol Lactate (Haldol) 2 mg IM BID [facility] Stop: 01/05/19 16:59 Heparin Sodium (Porcine) (Heparin) 5,000 units SUBQ Q12HR [facility] Stop: 01/03/19 20:59 Last Admin: 11/06/18 09:01 Dose: 5,000 units Hydroxyzine HCl (Atarax) 10 mg GT TID PRN; Protocol PRN Reason: PRURITUS Stop: 01/03/19 16:25 Dextrose/Sodium Chloride (D5-0.45ns) 1,000 mls @ 100 mls/hr IV .Q10H [facility] Stop: 01/03/19 16:29 Last Admin: 11/06/18 05:54 Dose: 100 mls/hr Valproate Sodium 500 mg/ (Sodium Chloride) 105 mls @ 100 mls/hr IV Q12HR [facility] Stop: 01/04/19 10:59 Last Admin: 11/06/18 09:13 Dose: 100 mls/hr Lactobacillus Rhamnosus (Culturelle 15b) 1 each GT DAILY [facility] Stop: 01/04/19 08:59 Last Admin: 11/06/18 09:16 Dose: Not Given Lactulose (Cephulac) 30 gm PO Q6HR [facility] Stop: 01/03/19 17:59 Last Admin: 11/06/18 05:26 Dose: Not Given Lorazepam (Ativan) 1 mg PO TID [facility]; Protocol Stop: 01/03/19 20:59 Last Admin: 11/06/18 10:43 Dose: Not Given Lorazepam (Ativan) 0.5 mg GT Q6H PRN; Protocol PRN Reason: Anxiety Stop: 01/03/19 16:25 Lorazepam (Ativan) 1 mg IVP Q6H PRN; Protocol PRN Reason: Agitation Stop: 01/04/19 11:20 Last Admin: 11/06/18 09:01 Dose: 1 mg Magnesium Hydroxide (Milk Of Magnesia) 30 ml GT HS PRN PRN Reason: Constipation Stop: 01/03/19 16:25 Midodrine (Proamatine) 5 mg PO TID [facility] Stop: 01/03/19 20:59 Last Admin: 11/06/18 09:16 Dose: Not Given Morphine Sulfate (Morphine) 2 mg IVP Q4HR PRN PRN Reason: Severe Pain Stop: 01/03/19 16:25 Morphine Sulfate (Morphine) 1 mg IVP Q4HR PRN PRN Reason: moderate pain Stop: 01/03/19 16:25 Mupirocin (Bactroban Oint) 1 appl NS BID [facility] Stop: 11/08/18 16:59 Last Admin: 11/06/18 09:00 Dose: 1 appl Pantoprazole Sodium (Protonix) 40 mg IVP DAILY [facility] Stop: 01/04/19 10:14 Last Admin: 11/06/18 09:00 Dose: 40 mg Pioglitazone HCl (Actos) 15 mg PO DAILY [facility] Stop: 01/04/19 08:59 Last Admin: 11/06/18 09:16 Dose: Not Given Potassium Chloride (Klor-Con) 20 meq PO DAILY [facility] Stop: 01/04/19 08:59 Last Admin: 11/06/18 09:17 Dose: Not Given Quetiapine Fumarate (Seroquel) 50 mg PO BID [facility]; Protocol Stop: 01/03/19 16:59 Last Admin: 11/06/18 09:16 Dose: Not Given Sodium Phosphate (Fleet Enema) 135 ml RC Q48H PRN PRN Reason: IF DULCOLAX INEFFECTIVE Stop: 01/03/19 16:25 Temazepam (Restoril) 15 mg PO HS PRN; Protocol PRN Reason: IF AMBIEN INEFFECTIVE Stop: 01/03/19 17:07 Tobramycin/Dexamethasone (Tobradex 0.1%-0.3% Ophth Susp 2.5ml) 1 drop RIGHT EYE TID [facility] Stop: 01/03/19 20:59 Last Admin: 11/06/18 09:00 Dose: 1 drop Zolpidem Tartrate (Ambien) 5 mg GT HS [facility] Stop: 01/03/19 20:59 Last Admin: 11/05/18 21:46 Dose: Not Given General: lethargic, other (Irritable and agitated.) HEENT: NC/AT, PERRLA Neck: Supple, No JVD Cardiovascular: Normal S1, Normal S2 Abdomen: soft, non-distended Extremities: other (Right upper paralysis.) Neurological: no change, disorganized - Procedures Procedures: Procedures Procedure Code Date ASSISTANCE WITH RESPIRATORY VENTILATION, <24 HRS, CPAP [id number] 06/01/18 REMOVAL OF FEEDING DEVICE FROM STOMACH, EXTERNAL APPROACH [id number] 06/21/18 Internal Medicine Assmt/Plan - Assessment Assessment: Irritable mood Agitated Confused Aspiration Right upper extremity paralysis Htn Asthma Copd Dyslipidemia Schizophrenia Bipolar Disorder Dysphagia Moderate Protein- Calorie Malnutrition - Plan Plan: Continue to Monitor patient closely Monitor vitals, Continue Bp meds as directed Continue present meds as directed Continue IV fluids for Hydration Followup with GI for possible PEG Monitor diet/nutritional support Aspiration precaution Followup with Dr. Mcleod for Psych Management Fall precaution Continue present care management Nutritional Asmnt/Malnutr-PDOC - Dietary Evaluation Malnutrition Findings (Please click <Entered> for more info): see orders
[2018-11-06] MEDS ORDERED: ceFAZolin 1 GM in Sodium Chloride 0.9% 50 ML IV ONE (14:15)
[2018-11-06] MEDS: Haloperidol Lactate 5 mg/mL 1mL Vial IM SCH (17:41)
--- NOTE | 2018-11-06 22:39 | GI Progress Note ---
Subjective - Review of Systems Service Date: 11/06/18 Events since last encounter: Pt yelling aimlessly, still awaiting consent officially for peg tube Objective - Results Result Diagrams: 11/05/18 05:15 11/05/18 05:15 Recent Labs: Laboratory Last Values WBC 14.8 Th/cmm (4.8-10.8) H 11/05/18 05:15 RBC 4.30 Mil/cmm (4.30-5.70) 11/05/18 05:15 Hgb 12.5 gm/dL (12-16) 11/05/18 05:15 Hct 37.5 % (41.0-60) L 11/05/18 05:15 MCV 87.1 fl (80-99) 11/05/18 05:15 MCH 29.1 pg (26.0-30.0) 11/05/18 05:15 MCHC Differential 33.3 pg (28.0-36.0) 11/05/18 05:15 RDW 15.8 % (11.5-20.0) 11/05/18 05:15 Plt Count 357 Th/cmm (150-400) 11/05/18 05:15 MPV 7.9 fl 11/05/18 05:15 Add Manual Diff YES 11/05/18 05:15 Band Neutrophils % 1 % (0-10) 11/05/18 05:15 Neutrophils (Manual) 85 % (40-80) H 11/05/18 05:15 Lymphocytes 6 % (20-50) L 11/05/18 05:15 Monocytes 8 % (2-10) 11/05/18 05:15 Eosinophils 0 % (0-5) 11/05/18 05:15 Basophils 0 % (0-3) 11/05/18 05:15 PT 9.9 SECONDS (9.5-11.5) 11/05/18 05:15 INR 0.95 (0.5-1.4) 11/05/18 05:15 Sodium 144 mEq/L (136-145) 11/05/18 05:15 Potassium 4.6 mEq/L (3.5-5.1) 11/05/18 05:15 Chloride 104 mEq/L (98-107) 11/05/18 05:15 Carbon Dioxide 27.2 mEq/L (21.0-31.0) 11/05/18 05:15 Anion Gap 17.4 (7.0-16.0) H 11/05/18 05:15 BUN 16 mg/dL (7-25) 11/05/18 05:15 Creatinine 0.7 mg/dL (0.7-1.3) 11/05/18 05:15 Est GFR ( Amer) > 60.0 ml/min (>90) 11/05/18 05:15 Est GFR (Non-Af Amer) > 60.0 ml/min 11/05/18 05:15 BUN/Creatinine Ratio 22.9 11/05/18 05:15 Glucose 93 mg/dL (70-105) 11/05/18 05:15 Calcium 9.3 mg/dL (8.6-10.3) 11/05/18 05:15 - Physical Exam Vitals and I&O: Vital Signs Temp 97.9 F 11/06/18 20:00 Pulse 74 11/06/18 20:00 Resp 19 11/06/18 20:00 BP 150/81 11/06/18 20:00 Pulse Ox 98 11/06/18 20:00 Intake & Output 11/06/18 11/06/18 11/07/18 06:59 18:59 06:59 Intake Total 252.298 8491 Balance 859.633 7681 Weight (lbs) 77.111 kg Intake: Intake, IV Amount 586.482 3417 D5-0.45NS 1,000 ml @ 100 600.050 1854 mls/hr IV .Q10H [facility] Rx#: [id number] Valproate Sodium 500 mg 210 In Sodium Chloride 0.9% 100 ml @ 100 mls/hr IV Q12HR [facility] Rx#:[id number] Other: # Voids 3 Stool Characteristics Soft Soft Formed Formed Weight Source Bedscale Active Medications: Current Medications Acetaminophen (Tylenol) 650 mg PO Q6HR PRN PRN Reason: Mild Pain or Fever >101 Stop: 01/03/19 16:25 Acetaminophen (Tylenol Extra Strength) 1,000 mg PO Q8HR PRN PRN Reason: Pain (Moderate) Stop: 01/03/19 16:25 Albuterol/Ipratropium (Duoneb Neb) 3 ml HHN Q6HR PRN PRN Reason: Shortness of Breath or Wheeze Stop: 01/03/19 16:25 Ascorbic Acid (Vitamin C) 500 mg PO DAILY [facility] Stop: 01/04/19 08:59 Last Admin: 11/06/18 09:16 Dose: Not Given Aspirin (Aspirin Chewable) 81 mg PO DAILY [facility] Stop: 01/04/19 08:59 Last Admin: 11/06/18 09:16 Dose: Not Given Bisacodyl (Dulcolax 10 Mg Supp) 10 mg RC DAILY PRN PRN Reason: Constipation Stop: 01/03/19 16:25 Clonazepam (Klonopin) 0.5 mg PO BID PRN; Protocol PRN Reason: Agitation Stop: 01/03/19 16:25 Docusate Sodium (Colace) 100 mg PO BID [facility] Stop: 01/03/19 16:59 Last Admin: 11/06/18 17:07 Dose: Not Given Ferrous Sulfate (Iron) 325 mg PO DAILY [facility] Stop: 01/04/19 08:59 Last Admin: 11/06/18 09:16 Dose: Not Given Haloperidol (Haldol) 5 mg PO BID [facility]; Protocol Stop: 01/03/19 16:59 Last Admin: 11/06/18 17:07 Dose: Not Given Haloperidol Lactate (Haldol) 2 mg IM Q6HR PRN PRN Reason: Agitation Stop: 01/03/19 16:25 Haloperidol Lactate (Haldol) 2 mg IM BID [facility] Stop: 01/05/19 16:59 Last Admin: 11/06/18 17:41 Dose: 2 mg Heparin Sodium (Porcine) (Heparin) 5,000 units SUBQ Q12HR [facility] Stop: 01/03/19 20:59 Last Admin: 11/06/18 21:32 Dose: 5,000 units Hydroxyzine HCl (Atarax) 10 mg GT TID PRN; Protocol PRN Reason: PRURITUS Stop: 01/03/19 16:25 Dextrose/Sodium Chloride (D5-0.45ns) 1,000 mls @ 100 mls/hr IV .Q10H [facility] Stop: 01/03/19 16:29 Last Admin: 11/06/18 21:43 Dose: 100 mls/hr Valproate Sodium 500 mg/ (Sodium Chloride) 105 mls @ 100 mls/hr IV Q12HR [facility] Stop: 01/04/19 10:59 Last Admin: 11/06/18 20:57 Dose: 100 mls/hr Lactobacillus Rhamnosus (Culturelle 15b) 1 each GT DAILY [facility] Stop: 01/04/19 08:59 Last Admin: 11/06/18 09:16 Dose: Not Given Lactulose (Cephulac) 30 gm PO Q6HR [facility] Stop: 01/03/19 17:59 Last Admin: 11/06/18 17:08 Dose: Not Given Lorazepam (Ativan) 1 mg PO TID [facility]; Protocol Stop: 01/03/19 20:59 Last Admin: 11/06/18 20:59 Dose: Not Given Lorazepam (Ativan) 0.5 mg GT Q6H PRN; Protocol PRN Reason: Anxiety Stop: 01/03/19 16:25 Lorazepam (Ativan) 1 mg IVP Q6H PRN; Protocol PRN Reason: Agitation Stop: 01/04/19 11:20 Last Admin: 11/06/18 20:39 Dose: 1 mg Magnesium Hydroxide (Milk Of Magnesia) 30 ml GT HS PRN PRN Reason: Constipation Stop: 01/03/19 16:25 Midodrine (Proamatine) 5 mg PO TID [facility] Stop: 01/03/19 20:59 Last Admin: 11/06/18 21:00 Dose: Not Given Morphine Sulfate (Morphine) 2 mg IVP Q4HR PRN PRN Reason: Severe Pain Stop: 01/03/19 16:25 Morphine Sulfate (Morphine) 1 mg IVP Q4HR PRN PRN Reason: moderate pain Stop: 01/03/19 16:25 Mupirocin (Bactroban Oint) 1 appl NS BID [facility] Stop: 11/08/18 16:59 Last Admin: 11/06/18 17:42 Dose: 1 appl Pantoprazole Sodium (Protonix) 40 mg IVP DAILY [facility] Stop: 01/04/19 10:14 Last Admin: 11/06/18 09:00 Dose: 40 mg Pioglitazone HCl (Actos) 15 mg PO DAILY [facility] Stop: 01/04/19 08:59 Last Admin: 11/06/18 09:16 Dose: Not Given Potassium Chloride (Klor-Con) 20 meq PO DAILY [facility] Stop: 01/04/19 08:59 Last Admin: 11/06/18 09:17 Dose: Not Given Quetiapine Fumarate (Seroquel) 50 mg PO BID [facility]; Protocol Stop: 01/03/19 16:59 Last Admin: 11/06/18 17:07 Dose: Not Given Sodium Phosphate (Fleet Enema) 135 ml RC Q48H PRN PRN Reason: IF DULCOLAX INEFFECTIVE Stop: 01/03/19 16:25 Temazepam (Restoril) 15 mg PO HS PRN; Protocol PRN Reason: IF AMBIEN INEFFECTIVE Stop: 01/03/19 17:07 Tobramycin/Dexamethasone (Tobradex 0.1%-0.3% Ophth Susp 2.5ml) 1 drop RIGHT EYE TID [facility] Stop: 01/03/19 20:59 Last Admin: 11/06/18 21:32 Dose: 1 drop Zolpidem Tartrate (Ambien) 5 mg GT HS [facility] Stop: 01/03/19 20:59 Last Admin: 11/06/18 21:00 Dose: Not Given General: Mild distress HEENT: PERRLA, EOMI Neck: Supple Cardiovascular: Regular rate, Normal S1, Normal S2 Abdomen: Bowel sounds, Soft Neurological: Normal tone - Procedures Procedures: Procedures Procedure Code Date ASSISTANCE WITH RESPIRATORY VENTILATION, <24 HRS, CPAP [id number] 06/01/18 REMOVAL OF FEEDING DEVICE FROM STOMACH, EXTERNAL APPROACH [id number] 06/21/18 Assessment/Plan - Assessment Assessment: 1. Oropharyngeal Dysphagia 2. Significant aspiration 3. Protein calorie malnutrition -Will place consent for EGD with PEG with anesthesia preferably tomorrow
--- NOTE | 2018-11-06 23:05 | Progress Notes ---
DATE: SUBJECTIVE: Chart reviewed and the patient interviewed. Also discussed the patient's condition with the staff and reviewed records and labs. The patient is still aggressive and agitated. The patient also is still irritable and needs lots of redirections. Also, is still trying to pull IVs. The patient failed a swallowing eval and his medications now is given through IV. ASSESSMENT: The patient is still agitated and psychotic. TREATMENT PLAN: We will change oral medications and we will give the patient Haldol 2 mg twice a day IV or IM. Also, we will work on his agitation. Also, continue medical workup as per Dr. Sanders. JOB# [id number]
[2018-11-07] MEDS: Lactulose 10 Gm/15 mL 30mL UDC PO SCH ×3 (00:08→17:59)
[2018-11-07 06:46] LABS: % EOSINOPHILS 4.4 % (0.0-5.0); % LYMPHOCYTES 20.6 % (20.0-50.0); % MONOCYTES 3.2 % (2.0-10.0); % NEUTROPHILS 71.8 % (40.0-80.0); EOSINOPHILE ABSOLUTE 0.4 Th/cmm (0.1-0.4); HEMATOCRIT 36.7 % (41.0-60); HEMOGLOBIN 11.9 gm/dL (12-16); LYMPHOCYTE ABSOLUTE 1.7 Th/cmm (1.5-3.0); MEAN CELL VOLUME 87.7 fl (80-99); MEAN CORPUSCULAR HEMOGLOBIN 28.5 pg (26.0-30.0); MEAN CORPUSCULAR HGB CONC 32.5 pg (28.0-36.0); MONOCYTE ABSOLUTE 0.3 Th/cmm (0.3-1.0); NEUTROPHILE ABSOLUTE 5.7 Th/cmm (1.8-8.0); PLATELET COUNT 331 Th/cmm (150-400); RED BLOOD COUNT 4.18 Mil/cmm (4.30-5.70); RED CELL DISTRIBUTION WIDTH 14.8 % (11.5-20.0); WHITE BLOOD COUNT 8.1 Th/cmm (4.8-10.8)
[2018-11-07 08:42] LABS: ANION GAP 12.4 (7.0-16.0); BUN - UREA NITROGEN 5 mg/dL (7-25); CALCIUM SERUM 8.8 mg/dL (8.6-10.3); CHLORIDE 104 mEq/L (98-107); CREATININE - SERUM 0.5 mg/dL (0.7-1.3); GFR AFRICAN-AMERICAN > 60.0 ml/min (>90); GFR NON AFRICAN-AMERICAN > 60.0 ml/min; GLUCOSE 100 mg/dL (70-105); POTASSIUM SERUM 3.4 mEq/L (3.5-5.1); SODIUM SERUM 141 mEq/L (136-145)
[2018-11-07] MEDS: Aspirin 81mg Chewable Tab PO SCH (08:51)
[2018-11-07] MEDS: Lactobacillus Rhamnosus GG 15 Billion CFU CAP.SPRINK GT SCH (08:52)
[2018-11-07] MEDS: Ferrous Sulfate 325 MG TAB PO SCH (08:52)
[2018-11-07] MEDS: Potassium Chloride 20 mEq ER Tab PO SCH (08:53)
[2018-11-07] MEDS: Multivitamin w/ Minerals Tab PO SCH (08:53)
[2018-11-07] MEDS: Valproate Sodium 500 MG in Sodium Chloride 0.9% 100 ML IV SCH ×3 (08:54→21:02)
[2018-11-07] MEDS: Dexamethasone/Tobramycin Ophth Susp 2.5 mL Bottle RIGHT EYE SCH ×3 (09:30→21:06)
[2018-11-07 10:17] LABS: INR 0.95 (0.5-1.4); PROTHROMBIN TIME (TEST) 9.8 SECONDS (9.5-11.5)
[2018-11-07] MEDS: Haloperidol Lactate 5 mg/mL 1mL Vial IM SCH ×2 (11:07→16:15)
[2018-11-07] MEDS ORDERED: GLUCAGON HCl 1 MG KIT IM PRN (14:15)
[2018-11-07] MEDS ORDERED: Dextrose 50% 50 mL Abboject IVP PRN (14:15)
[2018-11-07] MEDS: Amino Acids 3% / Electrolytes 1,000 ML IV SCH (17:02)
--- NOTE | 2018-11-07 17:41 | GI Progress Note ---
Subjective - Review of Systems Service Date: 11/07/18 Events since last encounter: in process of getting conservator to consent for pEG Objective - Results Result Diagrams: 11/07/18 05:55 11/07/18 05:55 Recent Labs: Laboratory Last Values WBC 8.1 Th/cmm (4.8-10.8) 11/07/18 05:55 RBC 4.18 Mil/cmm (4.30-5.70) L 11/07/18 05:55 Hgb 11.9 gm/dL (12-16) L 11/07/18 05:55 Hct 36.7 % (41.0-60) L 11/07/18 05:55 MCV 87.7 fl (80-99) 11/07/18 05:55 MCH 28.5 pg (26.0-30.0) 11/07/18 05:55 MCHC Differential 32.5 pg (28.0-36.0) 11/07/18 05:55 RDW 14.8 % (11.5-20.0) 11/07/18 05:55 Plt Count 331 Th/cmm (150-400) 11/07/18 05:55 MPV 8.0 fl 11/07/18 05:55 Add Manual Diff YES 11/05/18 05:15 Neutrophils % 71.8 % (40.0-80.0) 11/07/18 05:55 Band Neutrophils % 1 % (0-10) 11/05/18 05:15 Lymphocytes % 20.6 % (20.0-50.0) 11/07/18 05:55 Monocytes % 3.2 % (2.0-10.0) 11/07/18 05:55 Eosinophils % 4.4 % (0.0-5.0) 11/07/18 05:55 Basophils % 0.0 % (0.0-2.0) 11/07/18 05:55 Neutrophils (Manual) 85 % (40-80) H 11/05/18 05:15 Lymphocytes 6 % (20-50) L 11/05/18 05:15 Monocytes 8 % (2-10) 11/05/18 05:15 Eosinophils 0 % (0-5) 11/05/18 05:15 Basophils 0 % (0-3) 11/05/18 05:15 PT 9.8 SECONDS (9.5-11.5) 11/07/18 05:55 INR 0.95 (0.5-1.4) 11/07/18 05:55 Sodium 141 mEq/L (136-145) 11/07/18 05:55 Potassium 3.4 mEq/L (3.5-5.1) L 11/07/18 05:55 Chloride 104 mEq/L (98-107) 11/07/18 05:55 Carbon Dioxide 28.0 mEq/L (21.0-31.0) 11/07/18 05:55 Anion Gap 12.4 (7.0-16.0) 11/07/18 05:55 BUN 5 mg/dL (7-25) L 11/07/18 05:55 Creatinine 0.5 mg/dL (0.7-1.3) L 11/07/18 05:55 Est GFR ( Amer) > 60.0 ml/min (>90) 11/07/18 05:55 Est GFR (Non-Af Amer) > 60.0 ml/min 11/07/18 05:55 BUN/Creatinine Ratio 10.0 11/07/18 05:55 Glucose 100 mg/dL (70-105) 11/07/18 05:55 POC Glucose 88 MG/DL (70 - 105) 11/07/18 16:16 Calcium 8.8 mg/dL (8.6-10.3) 11/07/18 05:55 - Physical Exam Vitals and I&O: Vital Signs Temp 97.8 F 11/07/18 15:28 Pulse 84 11/07/18 15:28 Resp 18 11/07/18 15:28 BP 138/69 11/07/18 15:28 Pulse Ox 95 11/07/18 15:28 Intake & Output 11/06/18 11/07/18 11/07/18 18:59 06:59 18:59 Intake Total 1210 105 Balance 1210 105 Weight (lbs) 77.111 kg 77.791 kg Intake: Intake, IV Amount 1210 105 D5-0.45NS 1,000 ml @ 100 1000 mls/hr IV .Q10H [facility] Rx#: [id number] Valproate Sodium 500 mg 210 105 In Sodium Chloride 0.9% 100 ml @ 100 mls/hr IV Q12HR [facility] Rx#:[id number] Other: # Voids 3 Stool Characteristics Soft Soft Formed Formed Weight Source Bedscale Bedscale Active Medications: Current Medications Acetaminophen (Tylenol) 650 mg PO Q6HR PRN PRN Reason: Mild Pain or Fever >101 Stop: 01/03/19 16:25 Acetaminophen (Tylenol Extra Strength) 1,000 mg PO Q8HR PRN PRN Reason: Pain (Moderate) Stop: 01/03/19 16:25 Albuterol/Ipratropium (Duoneb Neb) 3 ml HHN Q6HR PRN PRN Reason: Shortness of Breath or Wheeze Stop: 01/03/19 16:25 Ascorbic Acid (Vitamin C) 500 mg PO DAILY [facility] Stop: 01/04/19 08:59 Last Admin: 11/07/18 08:51 Dose: Not Given Aspirin (Aspirin Chewable) 81 mg PO DAILY [facility] Stop: 01/04/19 08:59 Last Admin: 11/07/18 08:51 Dose: Not Given Bisacodyl (Dulcolax 10 Mg Supp) 10 mg RC DAILY PRN PRN Reason: Constipation Stop: 01/03/19 16:25 Clonazepam (Klonopin) 0.5 mg PO BID PRN; Protocol PRN Reason: Agitation Stop: 01/03/19 16:25 Dextrose (D50w) 50 ml IVP PRN PRN PRN Reason: Blood Glucose less than 70 Stop: 01/06/19 14:14 Dextrose (Glutose 40%) 18.75 gm PO PRN PRN PRN Reason: Blood Glucose less than 70 Stop: 01/06/19 14:14 Docusate Sodium (Colace) 100 mg PO BID [facility] Stop: 01/03/19 16:59 Last Admin: 11/07/18 08:50 Dose: Not Given Ferrous Sulfate (Iron) 325 mg PO DAILY [facility] Stop: 01/04/19 08:59 Last Admin: 11/07/18 08:52 Dose: Not Given Glucagon (Glucagen) 1 mg IM PRN PRN PRN Reason: Blood Glucose less than 70 Stop: 01/06/19 14:14 Haloperidol (Haldol) 5 mg PO BID [facility]; Protocol Stop: 01/03/19 16:59 Last Admin: 11/07/18 08:50 Dose: Not Given Haloperidol Lactate (Haldol) 2 mg IM Q6HR PRN PRN Reason: Agitation Stop: 01/03/19 16:25 Haloperidol Lactate (Haldol) 2 mg IM BID [facility] Stop: 01/05/19 16:59 Last Admin: 11/07/18 11:07 Dose: 2 mg Heparin Sodium (Porcine) (Heparin) 5,000 units SUBQ Q12HR [facility] Stop: 01/03/19 20:59 Last Admin: 11/07/18 09:52 Dose: 5,000 units Hydroxyzine HCl (Atarax) 10 mg GT TID PRN; Protocol PRN Reason: PRURITUS Stop: 01/03/19 16:25 Dextrose/Sodium Chloride (D5-0.45ns) 1,000 mls @ 100 mls/hr IV .Q10H [facility] Stop: 01/03/19 16:29 Last Admin: 11/06/18 21:43 Dose: 100 mls/hr Valproate Sodium 500 mg/ (Sodium Chloride) 105 mls @ 100 mls/hr IV Q12HR [facility] Stop: 01/04/19 10:59 Last Admin: 11/07/18 12:12 Dose: 100 mls/hr Amino Acids/Electrolytes (Procalamine) 1,000 mls @ 60 mls/hr IV .[id number] [facility] Stop: 01/06/19 14:59 Last Admin: 11/07/18 17:02 Dose: 60 mls/hr Insulin Human Lispro (Humalog Insulin Sliding Scale) 0 units SUBQ Q6HR [facility]; Protocol Stop: 01/06/19 17:59 Lactobacillus Rhamnosus (Culturelle 15b) 1 each GT DAILY [facility] Stop: 01/04/19 08:59 Last Admin: 11/07/18 08:52 Dose: Not Given Lactulose (Cephulac) 30 gm PO Q6HR [facility] Stop: 01/03/19 17:59 Last Admin: 11/07/18 06:25 Dose: Not Given Lorazepam (Ativan) 1 mg PO TID [facility]; Protocol Stop: 01/03/19 20:59 Last Admin: 11/07/18 08:51 Dose: Not Given Lorazepam (Ativan) 0.5 mg GT Q6H PRN; Protocol PRN Reason: Anxiety Stop: 01/03/19 16:25 Lorazepam (Ativan) 1 mg IVP Q6H PRN; Protocol PRN Reason: Agitation Stop: 01/04/19 11:20 Last Admin: 11/06/18 20:39 Dose: 1 mg Magnesium Hydroxide (Milk Of Magnesia) 30 ml GT HS PRN PRN Reason: Constipation Stop: 01/03/19 16:25 Midodrine (Proamatine) 5 mg PO TID [facility] Stop: 01/03/19 20:59 Last Admin: 11/07/18 08:52 Dose: Not Given Miscellaneous (Ppn Per Pharmacy) 1 ea MC PRN PRN PRN Reason: PROTOCOL Stop: 01/06/19 11:27 Morphine Sulfate (Morphine) 2 mg IVP Q4HR PRN PRN Reason: Severe Pain Stop: 01/03/19 16:25 Morphine Sulfate (Morphine) 1 mg IVP Q4HR PRN PRN Reason: moderate pain Stop: 01/03/19 16:25 Mupirocin (Bactroban Oint) 1 appl NS BID [facility] Stop: 11/08/18 16:59 Last Admin: 11/07/18 09:30 Dose: 1 appl Pantoprazole Sodium (Protonix) 40 mg IVP DAILY [facility] Stop: 01/04/19 10:14 Last Admin: 11/07/18 08:53 Dose: Not Given Pioglitazone HCl (Actos) 15 mg PO DAILY [facility] Stop: 01/04/19 08:59 Last Admin: 11/07/18 08:53 Dose: Not Given Potassium Chloride (Klor-Con) 20 meq PO DAILY [facility] Stop: 01/04/19 08:59 Last Admin: 11/07/18 08:53 Dose: Not Given Quetiapine Fumarate (Seroquel) 50 mg PO BID [facility]; Protocol Stop: 01/03/19 16:59 Last Admin: 11/07/18 08:51 Dose: Not Given Sodium Phosphate (Fleet Enema) 135 ml RC Q48H PRN PRN Reason: IF DULCOLAX INEFFECTIVE Stop: 01/03/19 16:25 Temazepam (Restoril) 15 mg PO HS PRN; Protocol PRN Reason: IF AMBIEN INEFFECTIVE Stop: 01/03/19 17:07 Tobramycin/Dexamethasone (Tobradex 0.1%-0.3% Ophth Susp 2.5ml) 1 drop RIGHT EYE TID [facility] Stop: 01/03/19 20:59 Last Admin: 11/07/18 09:30 Dose: 1 drop Zolpidem Tartrate (Ambien) 5 mg GT HS [facility] Stop: 01/03/19 20:59 Last Admin: 11/06/18 21:00 Dose: Not Given General: Mild distress HEENT: PERRLA, EOMI Neck: Supple Cardiovascular: Regular rate, Normal S1, Normal S2 Abdomen: Bowel sounds, Soft Neurological: Normal tone - Procedures Procedures: Procedures Procedure Code Date ASSISTANCE WITH RESPIRATORY VENTILATION, <24 HRS, CPAP [id number] 06/01/18 REMOVAL OF FEEDING DEVICE FROM STOMACH, EXTERNAL APPROACH [id number] 06/21/18 Assessment/Plan - Assessment Assessment: 1. Oropharyngeal Dysphagia 2. Significant aspiration 3. Protein calorie malnutrition -COnservator having questions about type of anesthesia for procedure -awaiting consent for egd with PEG tube placement -medically necessary for patient to have PEG
[2018-11-07] MEDS: INSULIN LISPRO SLIDING SCALE 100 UNITS/ML UNIT SUBQ SCH (18:03)
[2018-11-07] MEDS: D5-0.45NS 1,000 ML IV SCH (19:02)
--- NOTE | 2018-11-07 19:18 | Internal Medicine Prog Note ---
Internal Medicine Subjective - Subjective Service Date: 11/07/18 Patient is:: awake, verbal, talking, agitated, confused Patient Complaints of:: other (Dysphagia.) Per staff patient has:: no adverse event, no episodes of fall, poor oral intake , agitated, confused Internal Medicine Objective - Results Result Diagrams: 11/07/18 05:55 11/07/18 05:55 Recent Labs: Laboratory Last Values WBC 8.1 Th/cmm (4.8-10.8) 11/07/18 05:55 RBC 4.18 Mil/cmm (4.30-5.70) L 11/07/18 05:55 Hgb 11.9 gm/dL (12-16) L 11/07/18 05:55 Hct 36.7 % (41.0-60) L 11/07/18 05:55 MCV 87.7 fl (80-99) 11/07/18 05:55 MCH 28.5 pg (26.0-30.0) 11/07/18 05:55 MCHC Differential 32.5 pg (28.0-36.0) 11/07/18 05:55 RDW 14.8 % (11.5-20.0) 11/07/18 05:55 Plt Count 331 Th/cmm (150-400) 11/07/18 05:55 MPV 8.0 fl 11/07/18 05:55 Add Manual Diff YES 11/05/18 05:15 Neutrophils % 71.8 % (40.0-80.0) 11/07/18 05:55 Band Neutrophils % 1 % (0-10) 11/05/18 05:15 Lymphocytes % 20.6 % (20.0-50.0) 11/07/18 05:55 Monocytes % 3.2 % (2.0-10.0) 11/07/18 05:55 Eosinophils % 4.4 % (0.0-5.0) 11/07/18 05:55 Basophils % 0.0 % (0.0-2.0) 11/07/18 05:55 Neutrophils (Manual) 85 % (40-80) H 11/05/18 05:15 Lymphocytes 6 % (20-50) L 11/05/18 05:15 Monocytes 8 % (2-10) 11/05/18 05:15 Eosinophils 0 % (0-5) 11/05/18 05:15 Basophils 0 % (0-3) 11/05/18 05:15 PT 9.8 SECONDS (9.5-11.5) 11/07/18 05:55 INR 0.95 (0.5-1.4) 11/07/18 05:55 Sodium 141 mEq/L (136-145) 11/07/18 05:55 Potassium 3.4 mEq/L (3.5-5.1) L 11/07/18 05:55 Chloride 104 mEq/L (98-107) 11/07/18 05:55 Carbon Dioxide 28.0 mEq/L (21.0-31.0) 11/07/18 05:55 Anion Gap 12.4 (7.0-16.0) 11/07/18 05:55 BUN 5 mg/dL (7-25) L 11/07/18 05:55 Creatinine 0.5 mg/dL (0.7-1.3) L 11/07/18 05:55 Est GFR ( Amer) > 60.0 ml/min (>90) 11/07/18 05:55 Est GFR (Non-Af Amer) > 60.0 ml/min 11/07/18 05:55 BUN/Creatinine Ratio 10.0 11/07/18 05:55 Glucose 100 mg/dL (70-105) 11/07/18 05:55 POC Glucose 88 MG/DL (70 - 105) 11/07/18 16:16 Calcium 8.8 mg/dL (8.6-10.3) 11/07/18 05:55 - Physical Exam Vitals and I&O: Vital Signs Temp 97.8 F 11/07/18 15:28 Pulse 84 11/07/18 15:28 Resp 18 11/07/18 15:28 BP 138/69 11/07/18 15:28 Pulse Ox 95 11/07/18 15:28 Intake & Output 11/07/18 11/07/18 11/08/18 06:59 18:59 06:59 Intake Total 105 1000 Balance 105 1000 Weight (lbs) 170 lb 171 lb 8 oz Intake: Intake, IV Amount 105 1000 D5-0.45NS 1,000 ml @ 100 1000 mls/hr IV .Q10H REPLACED BY [facility] Rx#: [id number] Valproate Sodium 500 mg 105 In Sodium Chloride 0.9% 100 ml @ 100 mls/hr IV Q12HR REPLACED BY [facility] Rx#:[id number] Other: # Voids 3 Stool Characteristics Soft Formed Weight Source Bedscale Bedscale Active Medications: Current Medications Acetaminophen (Tylenol) 650 mg PO Q6HR PRN PRN Reason: Mild Pain or Fever >101 Stop: 01/03/19 16:25 Acetaminophen (Tylenol Extra Strength) 1,000 mg PO Q8HR PRN PRN Reason: Pain (Moderate) Stop: 01/03/19 16:25 Albuterol/Ipratropium (Duoneb Neb) 3 ml HHN Q6HR PRN PRN Reason: Shortness of Breath or Wheeze Stop: 01/03/19 16:25 Ascorbic Acid (Vitamin C) 500 mg PO DAILY REPLACED BY [facility] Stop: 01/04/19 08:59 Last Admin: 11/07/18 08:51 Dose: Not Given Aspirin (Aspirin Chewable) 81 mg PO DAILY REPLACED BY [facility] Stop: 01/04/19 08:59 Last Admin: 11/07/18 08:51 Dose: Not Given Bisacodyl (Dulcolax 10 Mg Supp) 10 mg RC DAILY PRN PRN Reason: Constipation Stop: 01/03/19 16:25 Clonazepam (Klonopin) 0.5 mg PO BID PRN; Protocol PRN Reason: Agitation Stop: 01/03/19 16:25 Dextrose (D50w) 50 ml IVP PRN PRN PRN Reason: Blood Glucose less than 70 Stop: 01/06/19 14:14 Dextrose (Glutose 40%) 18.75 gm PO PRN PRN PRN Reason: Blood Glucose less than 70 Stop: 01/06/19 14:14 Docusate Sodium (Colace) 100 mg PO BID REPLACED BY [facility] Stop: 01/03/19 16:59 Last Admin: 11/07/18 17:58 Dose: Not Given Ferrous Sulfate (Iron) 325 mg PO DAILY REPLACED BY [facility] Stop: 01/04/19 08:59 Last Admin: 11/07/18 08:52 Dose: Not Given Glucagon (Glucagen) 1 mg IM PRN PRN PRN Reason: Blood Glucose less than 70 Stop: 01/06/19 14:14 Haloperidol (Haldol) 5 mg PO BID REPLACED BY [facility]; Protocol Stop: 01/03/19 16:59 Last Admin: 11/07/18 17:58 Dose: Not Given Haloperidol Lactate (Haldol) 2 mg IM Q6HR PRN PRN Reason: Agitation Stop: 01/03/19 16:25 Haloperidol Lactate (Haldol) 2 mg IM BID [facility] Stop: 01/05/19 16:59 Last Admin: 11/07/18 16:15 Dose: 2 mg Heparin Sodium (Porcine) (Heparin) 5,000 units SUBQ Q12HR [facility] Stop: 01/03/19 20:59 Last Admin: 11/07/18 09:52 Dose: 5,000 units Hydroxyzine HCl (Atarax) 10 mg GT TID PRN; Protocol PRN Reason: PRURITUS Stop: 01/03/19 16:25 Dextrose/Sodium Chloride (D5-0.45ns) 1,000 mls @ 100 mls/hr IV .Q10H [facility] Stop: 01/03/19 16:29 Last Admin: 11/07/18 19:02 Dose: 100 mls/hr Valproate Sodium 500 mg/ (Sodium Chloride) 105 mls @ 100 mls/hr IV Q12HR [facility] Stop: 01/04/19 10:59 Last Admin: 11/07/18 12:12 Dose: 100 mls/hr Amino Acids/Electrolytes (Procalamine) 1,000 mls @ 60 mls/hr IV .[id number] REPLACED BY [facility] Stop: 01/06/19 14:59 Last Admin: 11/07/18 17:02 Dose: 60 mls/hr Insulin Human Lispro (Humalog Insulin Sliding Scale) 0 units SUBQ Q6HR [facility]; Protocol Stop: 01/06/19 17:59 Last Admin: 11/07/18 18:03 Dose: Not Given Lactobacillus Rhamnosus (Culturelle 15b) 1 each GT DAILY [facility] Stop: 01/04/19 08:59 Last Admin: 11/07/18 08:52 Dose: Not Given Lactulose (Cephulac) 30 gm PO Q6HR [facility] Stop: 01/03/19 17:59 Last Admin: 11/07/18 17:59 Dose: Not Given Lorazepam (Ativan) 1 mg PO TID [facility]; Protocol Stop: 01/03/19 20:59 Last Admin: 11/07/18 17:59 Dose: Not Given Lorazepam (Ativan) 0.5 mg GT Q6H PRN; Protocol PRN Reason: Anxiety Stop: 01/03/19 16:25 Lorazepam (Ativan) 1 mg IVP Q6H PRN; Protocol PRN Reason: Agitation Stop: 01/04/19 11:20 Last Admin: 11/06/18 20:39 Dose: 1 mg Magnesium Hydroxide (Milk Of Magnesia) 30 ml GT HS PRN PRN Reason: Constipation Stop: 01/03/19 16:25 Midodrine (Proamatine) 5 mg PO TID [facility] Stop: 01/03/19 20:59 Last Admin: 11/07/18 18:00 Dose: Not Given Miscellaneous (Ppn Per Pharmacy) 1 ea MC PRN PRN PRN Reason: PROTOCOL Stop: 01/06/19 11:27 Morphine Sulfate (Morphine) 2 mg IVP Q4HR PRN PRN Reason: Severe Pain Stop: 01/03/19 16:25 Morphine Sulfate (Morphine) 1 mg IVP Q4HR PRN PRN Reason: moderate pain Stop: 01/03/19 16:25 Mupirocin (Bactroban Oint) 1 appl NS BID REPLACED BY [facility] Stop: 11/08/18 16:59 Last Admin: 11/07/18 18:16 Dose: 1 appl Pantoprazole Sodium (Protonix) 40 mg IVP DAILY REPLACED BY [facility] Stop: 01/04/19 10:14 Last Admin: 11/07/18 08:53 Dose: Not Given Pioglitazone HCl (Actos) 15 mg PO DAILY REPLACED BY [facility] Stop: 01/04/19 08:59 Last Admin: 11/07/18 08:53 Dose: Not Given Potassium Chloride (Klor-Con) 20 meq PO DAILY REPLACED BY [facility] Stop: 01/04/19 08:59 Last Admin: 11/07/18 08:53 Dose: Not Given Quetiapine Fumarate (Seroquel) 50 mg PO BID REPLACED BY [facility]; Protocol Stop: 01/03/19 16:59 Last Admin: 11/07/18 17:58 Dose: Not Given Sodium Phosphate (Fleet Enema) 135 ml RC Q48H PRN PRN Reason: IF DULCOLAX INEFFECTIVE Stop: 01/03/19 16:25 Temazepam (Restoril) 15 mg PO HS PRN; Protocol PRN Reason: IF AMBIEN INEFFECTIVE Stop: 01/03/19 17:07 Tobramycin/Dexamethasone (Tobradex 0.1%-0.3% Ophth Susp 2.5ml) 1 drop RIGHT EYE TID [facility] Stop: 01/03/19 20:59 Last Admin: 11/07/18 17:59 Dose: Not Given Zolpidem Tartrate (Ambien) 5 mg GT HS [facility] Stop: 01/03/19 20:59 Last Admin: 11/06/18 21:00 Dose: Not Given General: lethargic, other (Irritable and agitated.) HEENT: NC/AT, PERRLA Neck: Supple, No JVD Cardiovascular: Normal S1, Normal S2 Abdomen: soft, non-distended Extremities: other (Right upper paralysis.) Neurological: no change, disorganized - Procedures Procedures: Procedures Procedure Code Date ASSISTANCE WITH RESPIRATORY VENTILATION, <24 HRS, CPAP [id number] 06/01/18 REMOVAL OF FEEDING DEVICE FROM STOMACH, EXTERNAL APPROACH [id number] 06/21/18 Internal Medicine Assmt/Plan - Assessment Assessment: dysphagia hx rue paralysis htn asthma copd dyslipidemia schzophrenia bipolar leukocytosis moderate protein florentin malnutrition - Plan Plan: am labs dc tele as patient refuses tele monitor continue current plan of care
[2018-11-08] MEDS: INSULIN LISPRO SLIDING SCALE 100 UNITS/ML UNIT SUBQ SCH ×4 (00:27→19:00)
[2018-11-08] MEDS: Lactulose 10 Gm/15 mL 30mL UDC PO SCH ×4 (00:27→19:00)
[2018-11-08 06:28] LABS: HEMATOCRIT 36.1 % (41.0-60); HEMOGLOBIN 11.6 gm/dL (12-16); MEAN CELL VOLUME 87.9 fl (80-99); MEAN CORPUSCULAR HEMOGLOBIN 28.3 pg (26.0-30.0); MEAN CORPUSCULAR HGB CONC 32.2 pg (28.0-36.0); RED BLOOD COUNT 4.11 Mil/cmm (4.30-5.70); RED CELL DISTRIBUTION WIDTH 15.2 % (11.5-20.0); WHITE BLOOD COUNT 8.8 Th/cmm (4.8-10.8)
[2018-11-08 06:29] LABS: % BASOPHILS 0.5 % (0.0-2.0); % LYMPHOCYTES 17.7 % (20.0-50.0); % NEUTROPHILS 68.8 % (40.0-80.0); EOSINOPHILE ABSOLUTE 0.4 Th/cmm (0.1-0.4); LYMPHOCYTE ABSOLUTE 1.6 Th/cmm (1.5-3.0); MEAN PLATELET VOLUME 7.3 fl; MONOCYTE ABSOLUTE 0.7 Th/cmm (0.3-1.0); NEUTROPHILE ABSOLUTE 6.1 Th/cmm (1.8-8.0); PLATELET COUNT 341 Th/cmm (150-400)
[2018-11-08 06:52] LABS: ALB/GLOB RATIO 1.2 (1.0-1.8); ALBUMIN 3.3 gm/dL (4.2-5.5); ALKALINE PHOSPHATASE 69 U/L (34-104); ANION GAP 11.2 (7.0-16.0); BILIRUBIN,TOTAL 0.3 mg/dL (0.3-1.0); BUN - UREA NITROGEN 4 mg/dL (7-25); CALCIUM SERUM 8.4 mg/dL (8.6-10.3); CARBON DIOXIDE 27.5 mEq/L (21.0-31.0); CHLORIDE 105 mEq/L (98-107); CREATININE - SERUM 0.5 mg/dL (0.7-1.3); GFR AFRICAN-AMERICAN > 60.0 ml/min (>90); GFR NON AFRICAN-AMERICAN > 60.0 ml/min; GLUCOSE 128 mg/dL (70-105); MAGNESIUM 1.6 mg/dL (1.9-2.7); POTASSIUM SERUM 3.7 mEq/L (3.5-5.1); SGOT 12 U/L (13-39); SGPT/ALT 7 U/L (7-52); SODIUM SERUM 140 mEq/L (136-145)
[2018-11-08] MEDS: D5-0.45NS 1,000 ML IV SCH (06:58)
[2018-11-08] MEDS ORDERED: Mag Sulfate 2gm/50mL Premix 2 GM/50 ML BAG IV ONE (08:45)
[2018-11-08] MEDS ORDERED: PPN D20%/AMI 8.5% IV SCH (08:45)
[2018-11-08] MEDS: Dexamethasone/Tobramycin Ophth Susp 2.5 mL Bottle RIGHT EYE SCH ×3 (09:50→20:20)
[2018-11-08] MEDS: Haloperidol Lactate 5 mg/mL 1mL Vial IM SCH ×2 (09:52→16:00)
[2018-11-08] MEDS: Aspirin 81mg Chewable Tab PO SCH (10:19)
[2018-11-08] MEDS: Lactobacillus Rhamnosus GG 15 Billion CFU CAP.SPRINK GT SCH (10:20)
[2018-11-08] MEDS: Ferrous Sulfate 325 MG TAB PO SCH (10:20)
[2018-11-08] MEDS: Amino Acids 3% / Electrolytes 1,000 ML IV SCH (10:27)
[2018-11-08] MEDS: Valproate Sodium 500 MG in Sodium Chloride 0.9% 100 ML IV SCH ×2 (10:28→21:09)
[2018-11-08] MEDS: PPN D20%/AMI 8.5% IV SCH (15:57)
--- NOTE | 2018-11-08 18:57 | GI Progress Note ---
Subjective - Review of Systems Service Date: 11/08/18 Events since last encounter: no events Objective - Results Result Diagrams: 11/08/18 06:10 11/08/18 06:10 Recent Labs: Laboratory Last Values WBC 8.8 Th/cmm (4.8-10.8) 11/08/18 06:10 RBC 4.11 Mil/cmm (4.30-5.70) L 11/08/18 06:10 Hgb 11.6 gm/dL (12-16) L 11/08/18 06:10 Hct 36.1 % (41.0-60) L 11/08/18 06:10 MCV 87.9 fl (80-99) 11/08/18 06:10 MCH 28.3 pg (26.0-30.0) 11/08/18 06:10 MCHC Differential 32.2 pg (28.0-36.0) 11/08/18 06:10 RDW 15.2 % (11.5-20.0) 11/08/18 06:10 Plt Count 341 Th/cmm (150-400) 11/08/18 06:10 MPV 7.3 fl 11/08/18 06:10 Add Manual Diff YES 11/05/18 05:15 Neutrophils % 68.8 % (40.0-80.0) 11/08/18 06:10 Band Neutrophils % 1 % (0-10) 11/05/18 05:15 Lymphocytes % 17.7 % (20.0-50.0) L 11/08/18 06:10 Monocytes % 8.0 % (2.0-10.0) 11/08/18 06:10 Eosinophils % 5.0 % (0.0-5.0) 11/08/18 06:10 Basophils % 0.5 % (0.0-2.0) 11/08/18 06:10 Neutrophils (Manual) 85 % (40-80) H 11/05/18 05:15 Lymphocytes 6 % (20-50) L 11/05/18 05:15 Monocytes 8 % (2-10) 11/05/18 05:15 Eosinophils 0 % (0-5) 11/05/18 05:15 Basophils 0 % (0-3) 11/05/18 05:15 PT 9.8 SECONDS (9.5-11.5) 11/07/18 05:55 INR 0.95 (0.5-1.4) 11/07/18 05:55 Sodium 140 mEq/L (136-145) 11/08/18 06:10 Potassium 3.7 mEq/L (3.5-5.1) 11/08/18 06:10 Chloride 105 mEq/L (98-107) 11/08/18 06:10 Carbon Dioxide 27.5 mEq/L (21.0-31.0) 11/08/18 06:10 Anion Gap 11.2 (7.0-16.0) 11/08/18 06:10 BUN 4 mg/dL (7-25) L 11/08/18 06:10 Creatinine 0.5 mg/dL (0.7-1.3) L 11/08/18 06:10 Est GFR ( Amer) > 60.0 ml/min (>90) 11/08/18 06:10 Est GFR (Non-Af Amer) > 60.0 ml/min 11/08/18 06:10 BUN/Creatinine Ratio 8.0 11/08/18 06:10 Glucose 128 mg/dL (70-105) H 11/08/18 06:10 POC Glucose 100 MG/DL (70 - 105) 11/08/18 11:45 Calcium 8.4 mg/dL (8.6-10.3) L 11/08/18 06:10 Magnesium 1.6 mg/dL (1.9-2.7) L 11/08/18 06:10 Total Bilirubin 0.3 mg/dL (0.3-1.0) 11/08/18 06:10 AST 12 U/L (13-39) L 11/08/18 06:10 ALT 7 U/L (7-52) 11/08/18 06:10 Alkaline Phosphatase 69 U/L (34-104) 11/08/18 06:10 Total Protein 6.0 gm/dL (6.0-8.3) 11/08/18 06:10 Albumin 3.3 gm/dL (4.2-5.5) L 11/08/18 06:10 Globulin 2.7 gm/dL 11/08/18 06:10 Albumin/Globulin Ratio 1.2 (1.0-1.8) 11/08/18 06:10 - Physical Exam Vitals and I&O: Vital Signs Temp 98.2 F 11/08/18 16:47 Pulse 80 11/08/18 16:47 Resp 18 11/08/18 16:47 BP 140/72 11/08/18 16:47 Pulse Ox 96 11/08/18 16:47 Intake & Output 11/07/18 11/08/18 11/08/18 18:59 06:59 18:59 Intake Total 1105 1105 1000 Balance 1105 1105 1000 Weight (lbs) 77.791 kg Intake: Intake, IV Amount 1105 1105 1000 Amino Acids 3% / 1000 Electrolytes 1,000 ml @ 60 mls/hr IV .[id number] [facility] Rx#:[id number] D5-0.45NS 1,000 ml @ 100 1000 1000 mls/hr IV .Q10H [facility] Rx#: [id number] Valproate Sodium 500 mg 105 105 In Sodium Chloride 0.9% 100 ml @ 100 mls/hr IV Q12HR [facility] Rx#:[id number] Other: Weight Source Bedscale Active Medications: Current Medications Acetaminophen (Tylenol) 650 mg PO Q6HR PRN PRN Reason: Mild Pain or Fever >101 Stop: 01/03/19 16:25 Acetaminophen (Tylenol Extra Strength) 1,000 mg PO Q8HR PRN PRN Reason: Pain (Moderate) Stop: 01/03/19 16:25 Albuterol/Ipratropium (Duoneb Neb) 3 ml HHN Q6HR PRN PRN Reason: Shortness of Breath or Wheeze Stop: 01/03/19 16:25 Ascorbic Acid (Vitamin C) 500 mg PO DAILY [facility] Stop: 01/04/19 08:59 Last Admin: 11/08/18 10:19 Dose: Not Given Aspirin (Aspirin Chewable) 81 mg PO DAILY [facility] Stop: 01/04/19 08:59 Last Admin: 11/08/18 10:19 Dose: Not Given Bisacodyl (Dulcolax 10 Mg Supp) 10 mg RC DAILY PRN PRN Reason: Constipation Stop: 01/03/19 16:25 Clonazepam (Klonopin) 0.5 mg PO BID PRN; Protocol PRN Reason: Agitation Stop: 01/03/19 16:25 Dextrose (D50w) 50 ml IVP PRN PRN PRN Reason: Blood Glucose less than 70 Stop: 01/06/19 14:14 Dextrose (Glutose 40%) 18.75 gm PO PRN PRN PRN Reason: Blood Glucose less than 70 Stop: 01/06/19 14:14 Docusate Sodium (Colace) 100 mg PO BID [facility] Stop: 01/03/19 16:59 Last Admin: 11/08/18 16:39 Dose: Not Given Ferrous Sulfate (Iron) 325 mg PO DAILY [facility] Stop: 01/04/19 08:59 Last Admin: 11/08/18 10:20 Dose: Not Given Glucagon (Glucagen) 1 mg IM PRN PRN PRN Reason: Blood Glucose less than 70 Stop: 01/06/19 14:14 Haloperidol (Haldol) 5 mg PO BID [facility]; Protocol Stop: 01/03/19 16:59 Last Admin: 11/08/18 16:39 Dose: Not Given Haloperidol Lactate (Haldol) 2 mg IM Q6HR PRN PRN Reason: Agitation Stop: 01/03/19 16:25 Haloperidol Lactate (Haldol) 2 mg IM BID [facility] Stop: 01/05/19 16:59 Last Admin: 11/08/18 16:00 Dose: 2 mg Heparin Sodium (Porcine) (Heparin) 5,000 units SUBQ Q12HR [facility] Stop: 01/03/19 20:59 Last Admin: 11/08/18 10:28 Dose: 5,000 units Hydroxyzine HCl (Atarax) 10 mg GT TID PRN; Protocol PRN Reason: PRURITUS Stop: 01/03/19 16:25 Valproate Sodium 500 mg/ (Sodium Chloride) 105 mls @ 100 mls/hr IV Q12HR [facility] Stop: 01/04/19 10:59 Last Admin: 11/08/18 10:28 Dose: 100 mls/hr Sodium Chloride (Nacl 0.9%) 250 mls @ 10 mls/hr IV Q24H [facility] Stop: 01/07/19 08:44 Multivitamins/Minerals 10 ml/Chromium/Copper/Manganese/Zinc 1 ml/ Amino Acids 2 ,171 mls @ 90 mls/hr IV .Q24H [facility] Stop: 12/05/18 15:59 Last Admin: 11/08/18 15:57 Dose: 90 mls/hr Insulin Human Lispro (Humalog Insulin Sliding Scale) 0 units SUBQ Q6HR [facility]; Protocol Stop: 01/06/19 17:59 Last Admin: 11/08/18 11:55 Dose: Not Given Lactobacillus Rhamnosus (Culturelle 15b) 1 each GT DAILY [facility] Stop: 01/04/19 08:59 Last Admin: 11/08/18 10:20 Dose: Not Given Lactulose (Cephulac) 30 gm PO Q6HR [facility] Stop: 01/03/19 17:59 Last Admin: 11/08/18 11:55 Dose: Not Given Lorazepam (Ativan) 1 mg PO TID [facility]; Protocol Stop: 01/03/19 20:59 Last Admin: 11/08/18 14:35 Dose: Not Given Lorazepam (Ativan) 0.5 mg GT Q6H PRN; Protocol PRN Reason: Anxiety Stop: 01/03/19 16:25 Lorazepam (Ativan) 1 mg IVP Q6H PRN; Protocol PRN Reason: Agitation Stop: 01/04/19 11:20 Last Admin: 11/08/18 03:28 Dose: 1 mg Magnesium Hydroxide (Milk Of Magnesia) 30 ml GT HS PRN PRN Reason: Constipation Stop: 01/03/19 16:25 Midodrine (Proamatine) 5 mg PO TID [facility] Stop: 01/03/19 20:59 Last Admin: 11/08/18 14:35 Dose: Not Given Miscellaneous (Ppn Per Pharmacy) 1 ea MC PRN PRN PRN Reason: PROTOCOL Stop: 01/06/19 11:27 Morphine Sulfate (Morphine) 2 mg IVP Q4HR PRN PRN Reason: Severe Pain Stop: 01/03/19 16:25 Morphine Sulfate (Morphine) 1 mg IVP Q4HR PRN PRN Reason: moderate pain Stop: 01/03/19 16:25 Last Admin: 11/08/18 09:53 Dose: 1 mg Pantoprazole Sodium (Protonix) 40 mg IVP DAILY [facility] Stop: 01/04/19 10:14 Last Admin: 11/08/18 10:33 Dose: 40 mg Pioglitazone HCl (Actos) 15 mg PO DAILY [facility] Stop: 01/04/19 08:59 Last Admin: 11/08/18 10:29 Dose: Not Given Quetiapine Fumarate (Seroquel) 50 mg PO BID [facility]; Protocol Stop: 01/03/19 16:59 Last Admin: 11/08/18 16:39 Dose: Not Given Sodium Phosphate (Fleet Enema) 135 ml RC Q48H PRN PRN Reason: IF DULCOLAX INEFFECTIVE Stop: 01/03/19 16:25 Temazepam (Restoril) 15 mg PO HS PRN; Protocol PRN Reason: IF AMBIEN INEFFECTIVE Stop: 01/03/19 17:07 Tobramycin/Dexamethasone (Tobradex 0.1%-0.3% Ophth Susp 2.5ml) 1 drop RIGHT EYE TID [facility] Stop: 01/03/19 20:59 Last Admin: 11/08/18 16:00 Dose: 1 drop Zolpidem Tartrate (Ambien) 5 mg GT HS [facility] Stop: 01/03/19 20:59 Last Admin: 11/07/18 21:09 Dose: Not Given General: Mild distress HEENT: PERRLA, EOMI Neck: Supple Cardiovascular: Regular rate, Normal S1, Normal S2 Abdomen: Bowel sounds, Soft Neurological: Normal tone - Procedures Procedures: Procedures Procedure Code Date ASSISTANCE WITH RESPIRATORY VENTILATION, <24 HRS, CPAP [id number] 06/01/18 REMOVAL OF FEEDING DEVICE FROM STOMACH, EXTERNAL APPROACH [id number] 06/21/18 Assessment/Plan - Assessment Assessment: 1. Oropharyngeal Dysphagia 2. Significant aspiration 3. Protein calorie malnutrition -COnservator having questions about type of anesthesia for procedure -awaiting consent for egd with PEG tube placement -medically necessary for patient to have PEG -awaiting for proper conservator consent, I left another message yesterday
[2018-11-08] MEDS: Sodium Chloride 0.9% 250 ML IV SCH (18:59)
[2018-11-09] MEDS: Lactulose 10 Gm/15 mL 30mL UDC PO SCH ×4 (00:33→17:53)
[2018-11-09] MEDS: INSULIN LISPRO SLIDING SCALE 100 UNITS/ML UNIT SUBQ SCH ×4 (00:44→17:55)
[2018-11-09 06:51] LABS: ALB/GLOB RATIO 1.3 (1.0-1.8); ALBUMIN 3.5 gm/dL (4.2-5.5); ALKALINE PHOSPHATASE 69 U/L (34-104); ANION GAP 12.6 (7.0-16.0); BILIRUBIN,TOTAL 0.3 mg/dL (0.3-1.0); BUN - UREA NITROGEN 11 mg/dL (7-25); CALCIUM SERUM 8.7 mg/dL (8.6-10.3); CARBON DIOXIDE 25.6 mEq/L (21.0-31.0); CHLORIDE 105 mEq/L (98-107); CREATININE - SERUM 0.5 mg/dL (0.7-1.3); GFR AFRICAN-AMERICAN > 60.0 ml/min (>90); GFR NON AFRICAN-AMERICAN > 60.0 ml/min; GLUCOSE 108 mg/dL (70-105); MAGNESIUM 1.9 mg/dL (1.9-2.7); PHOSPHOROUS 2.9 mg/dL (2.5-5.0); POTASSIUM SERUM 4.2 mEq/L (3.5-5.1); SGOT 15 U/L (13-39); SGPT/ALT 13 U/L (7-52); SODIUM SERUM 139 mEq/L (136-145); TOTAL PROTEIN,SERUM 6.3 gm/dL (6.0-8.3); TRIGLYCERIDES 111 mg/dL (<150)
[2018-11-09] MEDS: Aspirin 81mg Chewable Tab PO SCH (08:30)
[2018-11-09] MEDS: Ferrous Sulfate 325 MG TAB PO SCH (08:30)
[2018-11-09] MEDS: Dexamethasone/Tobramycin Ophth Susp 2.5 mL Bottle RIGHT EYE SCH ×3 (08:37→20:17)
[2018-11-09] MEDS: Lactobacillus Rhamnosus GG 15 Billion CFU CAP.SPRINK GT SCH (08:39)
[2018-11-09] MEDS: Valproate Sodium 500 MG in Sodium Chloride 0.9% 100 ML IV SCH ×2 (08:40→20:17)
--- NOTE | 2018-11-09 10:15 | Internal Medicine Prog Note ---
Internal Medicine Subjective - Subjective Patient seen and examined:: chart reviewed Patient is:: awake, verbal, confused, other (in no distress) Patient Complaints of:: other (Dysphagia.) Per staff patient has:: no adverse event, no episodes of fall, poor oral intake , agitated, confused Internal Medicine Objective - Results Result Diagrams: 11/08/18 06:10 11/09/18 05:10 Recent Labs: Laboratory Last Values WBC 8.8 Th/cmm (4.8-10.8) 11/08/18 06:10 RBC 4.11 Mil/cmm (4.30-5.70) L 11/08/18 06:10 Hgb 11.6 gm/dL (12-16) L 11/08/18 06:10 Hct 36.1 % (41.0-60) L 11/08/18 06:10 MCV 87.9 fl (80-99) 11/08/18 06:10 MCH 28.3 pg (26.0-30.0) 11/08/18 06:10 MCHC Differential 32.2 pg (28.0-36.0) 11/08/18 06:10 RDW 15.2 % (11.5-20.0) 11/08/18 06:10 Plt Count 341 Th/cmm (150-400) 11/08/18 06:10 MPV 7.3 fl 11/08/18 06:10 Add Manual Diff YES 11/05/18 05:15 Neutrophils % 68.8 % (40.0-80.0) 11/08/18 06:10 Band Neutrophils % 1 % (0-10) 11/05/18 05:15 Lymphocytes % 17.7 % (20.0-50.0) L 11/08/18 06:10 Monocytes % 8.0 % (2.0-10.0) 11/08/18 06:10 Eosinophils % 5.0 % (0.0-5.0) 11/08/18 06:10 Basophils % 0.5 % (0.0-2.0) 11/08/18 06:10 Neutrophils (Manual) 85 % (40-80) H 11/05/18 05:15 Lymphocytes 6 % (20-50) L 11/05/18 05:15 Monocytes 8 % (2-10) 11/05/18 05:15 Eosinophils 0 % (0-5) 11/05/18 05:15 Basophils 0 % (0-3) 11/05/18 05:15 PT 9.8 SECONDS (9.5-11.5) 11/07/18 05:55 INR 0.95 (0.5-1.4) 11/07/18 05:55 Sodium 139 mEq/L (136-145) 11/09/18 05:10 Potassium 4.2 mEq/L (3.5-5.1) 11/09/18 05:10 Chloride 105 mEq/L (98-107) 11/09/18 05:10 Carbon Dioxide 25.6 mEq/L (21.0-31.0) 11/09/18 05:10 Anion Gap 12.6 (7.0-16.0) 11/09/18 05:10 BUN 11 mg/dL (7-25) 11/09/18 05:10 Creatinine 0.5 mg/dL (0.7-1.3) L 11/09/18 05:10 Est GFR ( Amer) > 60.0 ml/min (>90) 11/09/18 05:10 Est GFR (Non-Af Amer) > 60.0 ml/min 11/09/18 05:10 BUN/Creatinine Ratio 22.0 11/09/18 05:10 Glucose 108 mg/dL (70-105) H 11/09/18 05:10 POC Glucose 105 MG/DL (70 - 105) 11/09/18 06:21 Calcium 8.7 mg/dL (8.6-10.3) 11/09/18 05:10 Phosphorus 2.9 mg/dL (2.5-5.0) 11/09/18 05:10 Magnesium 1.9 mg/dL (1.9-2.7) 11/09/18 05:10 Total Bilirubin 0.3 mg/dL (0.3-1.0) 11/09/18 05:10 AST 15 U/L (13-39) 11/09/18 05:10 ALT 13 U/L (7-52) 11/09/18 05:10 Alkaline Phosphatase 69 U/L (34-104) 11/09/18 05:10 Total Protein 6.3 gm/dL (6.0-8.3) 11/09/18 05:10 Albumin 3.5 gm/dL (4.2-5.5) L 11/09/18 05:10 Globulin 2.8 gm/dL 11/09/18 05:10 Albumin/Globulin Ratio 1.3 (1.0-1.8) 11/09/18 05:10 Triglycerides 111 mg/dL (<150) 11/09/18 05:10 - Physical Exam Vitals and I&O: Vital Signs Temp 97.8 F 11/09/18 04:00 Pulse 86 11/09/18 04:00 Resp 18 11/09/18 07:31 BP 154/85 11/09/18 04:00 Pulse Ox 95 11/09/18 04:00 Intake & Output 11/08/18 11/09/18 11/09/18 18:59 06:59 18:59 Intake Total 1105 105 Balance 1105 105 Intake: Intake, IV Amount 1105 105 Amino Acids 3% / 1000 Electrolytes 1,000 ml @ 60 mls/hr IV .[id number] [facility] Rx#:[id number] Valproate Sodium 500 mg 105 105 In Sodium Chloride 0.9% 100 ml @ 100 mls/hr IV Q12HR [facility] Rx#:[id number] Active Medications: Current Medications Acetaminophen (Tylenol) 650 mg PO Q6HR PRN PRN Reason: Mild Pain or Fever >101 Stop: 01/03/19 16:25 Acetaminophen (Tylenol Extra Strength) 1,000 mg PO Q8HR PRN PRN Reason: Pain (Moderate) Stop: 01/03/19 16:25 Albuterol/Ipratropium (Duoneb Neb) 3 ml HHN Q6HR PRN PRN Reason: Shortness of Breath or Wheeze Stop: 01/03/19 16:25 Ascorbic Acid (Vitamin C) 500 mg PO DAILY [facility] Stop: 01/04/19 08:59 Last Admin: 11/09/18 08:30 Dose: Not Given Aspirin (Aspirin Chewable) 81 mg PO DAILY [facility] Stop: 01/04/19 08:59 Last Admin: 11/09/18 08:30 Dose: Not Given Bisacodyl (Dulcolax 10 Mg Supp) 10 mg RC DAILY PRN PRN Reason: Constipation Stop: 01/03/19 16:25 Clonazepam (Klonopin) 0.5 mg PO BID PRN; Protocol PRN Reason: Agitation Stop: 01/03/19 16:25 Dextrose (D50w) 50 ml IVP PRN PRN PRN Reason: Blood Glucose less than 70 Stop: 01/06/19 14:14 Dextrose (Glutose 40%) 18.75 gm PO PRN PRN PRN Reason: Blood Glucose less than 70 Stop: 01/06/19 14:14 Docusate Sodium (Colace) 100 mg PO BID [facility] Stop: 01/03/19 16:59 Last Admin: 11/09/18 08:31 Dose: Not Given Ferrous Sulfate (Iron) 325 mg PO DAILY [facility] Stop: 01/04/19 08:59 Last Admin: 11/09/18 08:30 Dose: Not Given Glucagon (Glucagen) 1 mg IM PRN PRN PRN Reason: Blood Glucose less than 70 Stop: 01/06/19 14:14 Haloperidol (Haldol) 5 mg PO BID [facility]; Protocol Stop: 01/03/19 16:59 Last Admin: 11/09/18 08:31 Dose: Not Given Haloperidol Lactate (Haldol) 2 mg IM Q6HR PRN PRN Reason: Agitation Stop: 01/03/19 16:25 Haloperidol Lactate (Haldol) 2 mg IM BID [facility] Stop: 01/05/19 16:59 Last Admin: 11/08/18 16:00 Dose: 2 mg Heparin Sodium (Porcine) (Heparin) 5,000 units SUBQ Q12HR [facility] Stop: 01/03/19 20:59 Last Admin: 11/09/18 08:30 Dose: 5,000 units Hydroxyzine HCl (Atarax) 10 mg GT TID PRN; Protocol PRN Reason: PRURITUS Stop: 01/03/19 16:25 Valproate Sodium 500 mg/ (Sodium Chloride) 105 mls @ 100 mls/hr IV Q12HR [facility] Stop: 01/04/19 10:59 Last Admin: 11/09/18 08:40 Dose: 100 mls/hr Sodium Chloride (Nacl 0.9%) 250 mls @ 10 mls/hr IV Q24H [facility] Stop: 01/07/19 08:44 Last Admin: 11/08/18 18:59 Dose: 10 mls/hr Multivitamins/Minerals 10 ml/Chromium/Copper/Manganese/Zinc 1 ml/ Amino Acids 2 ,171 mls @ 90 mls/hr IV .Q24H [facility] Stop: 12/05/18 15:59 Last Admin: 11/08/18 15:57 Dose: 90 mls/hr Insulin Human Lispro (Humalog Insulin Sliding Scale) 0 units SUBQ Q6HR [facility]; Protocol Stop: 01/06/19 17:59 Last Admin: 11/09/18 06:24 Dose: Not Given Lactobacillus Rhamnosus (Culturelle 15b) 1 each GT DAILY [facility] Stop: 01/04/19 08:59 Last Admin: 11/09/18 08:39 Dose: Not Given Lactulose (Cephulac) 30 gm PO Q6HR [facility] Stop: 01/03/19 17:59 Last Admin: 11/09/18 06:24 Dose: Not Given Lorazepam (Ativan) 1 mg PO TID [facility]; Protocol Stop: 01/03/19 20:59 Last Admin: 11/09/18 08:31 Dose: Not Given Lorazepam (Ativan) 0.5 mg GT Q6H PRN; Protocol PRN Reason: Anxiety Stop: 01/03/19 16:25 Lorazepam (Ativan) 1 mg IVP Q6H PRN; Protocol PRN Reason: Agitation Stop: 01/04/19 11:20 Last Admin: 11/09/18 08:30 Dose: 1 mg Magnesium Hydroxide (Milk Of Magnesia) 30 ml GT HS PRN PRN Reason: Constipation Stop: 01/03/19 16:25 Midodrine (Proamatine) 5 mg PO TID [facility] Stop: 01/03/19 20:59 Last Admin: 11/09/18 08:39 Dose: Not Given Miscellaneous (Ppn Per Pharmacy) 1 ea MC PRN PRN PRN Reason: PROTOCOL Stop: 01/06/19 11:27 Morphine Sulfate (Morphine) 2 mg IVP Q4HR PRN PRN Reason: Severe Pain Stop: 01/03/19 16:25 Morphine Sulfate (Morphine) 1 mg IVP Q4HR PRN PRN Reason: moderate pain Stop: 01/03/19 16:25 Last Admin: 11/08/18 09:53 Dose: 1 mg Pantoprazole Sodium (Protonix) 40 mg IVP DAILY [facility] Stop: 01/04/19 10:14 Last Admin: 11/09/18 08:30 Dose: 40 mg Pioglitazone HCl (Actos) 15 mg PO DAILY [facility] Stop: 01/04/19 08:59 Last Admin: 11/09/18 08:39 Dose: Not Given Quetiapine Fumarate (Seroquel) 50 mg PO BID [facility]; Protocol Stop: 01/03/19 16:59 Last Admin: 11/09/18 08:31 Dose: Not Given Sodium Phosphate (Fleet Enema) 135 ml RC Q48H PRN PRN Reason: IF DULCOLAX INEFFECTIVE Stop: 01/03/19 16:25 Temazepam (Restoril) 15 mg PO HS PRN; Protocol PRN Reason: IF AMBIEN INEFFECTIVE Stop: 01/03/19 17:07 Tobramycin/Dexamethasone (Tobradex 0.1%-0.3% Ophth Susp 2.5ml) 1 drop RIGHT EYE TID [facility] Stop: 01/03/19 20:59 Last Admin: 11/09/18 08:37 Dose: 1 drop Zolpidem Tartrate (Ambien) 5 mg GT HS [facility] Stop: 01/03/19 20:59 Last Admin: 11/08/18 20:21 Dose: Not Given General: lethargic, other (Irritable) HEENT: NC/AT, PERRLA Neck: Supple, No JVD Cardiovascular: Normal S1, Normal S2 Abdomen: soft, non-distended Extremities: other (Right upper paralysis.) Neurological: no change, disorganized - Procedures Procedures: Procedures Procedure Code Date ASSISTANCE WITH RESPIRATORY VENTILATION, <24 HRS, CPAP [id number] 06/01/18 REMOVAL OF FEEDING DEVICE FROM STOMACH, EXTERNAL APPROACH [id number] 06/21/18 Internal Medicine Assmt/Plan - Assessment Assessment: Irritable mood Agitated Confused Aspiration Right upper extremity paralysis Htn Asthma Copd Dyslipidemia Schizophrenia Bipolar Disorder Dysphagia Moderate Protein- Calorie Malnutrition - Plan Plan: Continue to Monitor patient closely Monitor vitals, Continue Bp meds as directed Continue present meds as directed Continue IV fluids for Hydration Followup with GI for possible PEG Monitor diet/nutritional support Aspiration precaution Followup with Dr. Mcleod for Psych Management Fall precaution Continue present care management Nutritional Asmnt/Malnutr-PDOC - Dietary Evaluation Malnutrition Findings (Please click <Entered> for more info): Nutritional Asmnt/Malnutrition Start: 11/08/18 15: 37 Text: Status: Complete Freq: Protocol: Document 11/08/18 15:37 [facility] (Rec: 11/08/18 16:03 [email or web address]) Nutritional Asmnt/Malnutrition Patient General Information Nutritional Screening Moderate Risk Diagnosis dysphagia Pertinent Medical Hx/Surgical Hx right upper extremity paralysis, HTN, asthma, COPD, dyslipidemia, schizophrenia, bipolar disorder Subjective Information Pt seen in lasha-chair, confused with unclear speech, has 1:1 sitter. Per nurse note , pt failed swallow eval on and ST recommended NPO with alternative nutrition route. Waiting for PEG consent. Pt is now on PPN. Current Diet Order/ Nutrition Support Dex 8%, AA 4% at 90ml/hr, providing 933kcal, 86g protein Pertinent Medications vit C, colace, iron, humalog, culturelle, seroquel, nacl 0.9 % Pertinent Labs 11/08 BUN 4, Cr 0.5, glucose 128, POC 100-112, Ca 8.4, Mg 1 .6, Alb 3.3 Nutritional Hx/Data Height 1.65 m Height (Calculated Centimeters) 165.1 Current Weight (lbs) 77.564 kg Weight (Calculated Kilograms) 77.6 Weight (Calculated Grams) 72067.3 Rankin Body Weight 136 Body Mass Index (BMI) 28.4 Weight Status Overweight GI Symptoms GI Symptoms None Last BM 11/05 Difficult in: None Skin Integrity/Comment: bruise to posterior head Current %PO Negligible < 25% Estimated Nutritional Goals BEE in Kcals: Using Current wt Calories/Kcals/Kg 23-27 Kcals Calculated 1569-8534 Protein: Using Current wt Protein g/k Protein Calculated 78 Fluid: ml 1794-2106ml (1ml/kcal) Nutritional Problem 2. Problem Problem altered nutrition labs Etiology electrolytes imbalance Signs/Symptoms: mg 1.6, Ca 8.4 1. Problem Problem altered GI function Etiology pt failed swallow eval Signs/Symptoms: pt on PPN and need for PEG Malnutrition Alert Is there a minimum of two criteria No selected? Query Text:Check all the applicable criteria. A minimum of two criteria are recommended for diagnosis of either severe or non-severe malnutrition. Malnutrition Related to Morbid Obesity Malnutrition related to morbid obesity No Intervention/Recommendation Comments 1. Recommend PPN to meet 1794kcal and 78g protein. Recomendation sent to pharmacy . 2. Initiat TF after PEG placement. 3. Monitor PO intake, wt, labs and skin integrity 4. F/U as high risk in 2-3 days Expected Outcomes/Goals Expected Outcomes/Goals 1. Pt to meet at least 90% of nutritional needs via nutrition support with tolerance 2. Wt stability, skin to remain intact, labs to approach WNL.
[2018-11-09] MEDS: Haloperidol Lactate 5 mg/mL 1mL Vial IM SCH ×2 (13:17→16:01)
[2018-11-09] MEDS: PPN D20%/AMI 8.5% IV SCH (15:47)
[2018-11-09] MEDS: Sodium Chloride 0.9% 250 ML IV SCH (17:59)
--- NOTE | 2018-11-09 23:30 | GI Progress Note ---
Subjective - Review of Systems Service Date: 11/09/18 Subjective: events noted. Objective - Results Result Diagrams: 11/08/18 06:10 11/09/18 05:10 Recent Labs: Laboratory Last Values WBC 8.8 Th/cmm (4.8-10.8) 11/08/18 06:10 RBC 4.11 Mil/cmm (4.30-5.70) L 11/08/18 06:10 Hgb 11.6 gm/dL (12-16) L 11/08/18 06:10 Hct 36.1 % (41.0-60) L 11/08/18 06:10 MCV 87.9 fl (80-99) 11/08/18 06:10 MCH 28.3 pg (26.0-30.0) 11/08/18 06:10 MCHC Differential 32.2 pg (28.0-36.0) 11/08/18 06:10 RDW 15.2 % (11.5-20.0) 11/08/18 06:10 Plt Count 341 Th/cmm (150-400) 11/08/18 06:10 MPV 7.3 fl 11/08/18 06:10 Add Manual Diff YES 11/05/18 05:15 Neutrophils % 68.8 % (40.0-80.0) 11/08/18 06:10 Band Neutrophils % 1 % (0-10) 11/05/18 05:15 Lymphocytes % 17.7 % (20.0-50.0) L 11/08/18 06:10 Monocytes % 8.0 % (2.0-10.0) 11/08/18 06:10 Eosinophils % 5.0 % (0.0-5.0) 11/08/18 06:10 Basophils % 0.5 % (0.0-2.0) 11/08/18 06:10 Neutrophils (Manual) 85 % (40-80) H 11/05/18 05:15 Lymphocytes 6 % (20-50) L 11/05/18 05:15 Monocytes 8 % (2-10) 11/05/18 05:15 Eosinophils 0 % (0-5) 11/05/18 05:15 Basophils 0 % (0-3) 11/05/18 05:15 PT 9.8 SECONDS (9.5-11.5) 11/07/18 05:55 INR 0.95 (0.5-1.4) 11/07/18 05:55 Sodium 139 mEq/L (136-145) 11/09/18 05:10 Potassium 4.2 mEq/L (3.5-5.1) 11/09/18 05:10 Chloride 105 mEq/L (98-107) 11/09/18 05:10 Carbon Dioxide 25.6 mEq/L (21.0-31.0) 11/09/18 05:10 Anion Gap 12.6 (7.0-16.0) 11/09/18 05:10 BUN 11 mg/dL (7-25) 11/09/18 05:10 Creatinine 0.5 mg/dL (0.7-1.3) L 11/09/18 05:10 Est GFR ( Amer) > 60.0 ml/min (>90) 11/09/18 05:10 Est GFR (Non-Af Amer) > 60.0 ml/min 11/09/18 05:10 BUN/Creatinine Ratio 22.0 11/09/18 05:10 Glucose 108 mg/dL (70-105) H 11/09/18 05:10 POC Glucose 105 MG/DL (70 - 105) 11/09/18 17:47 Calcium 8.7 mg/dL (8.6-10.3) 11/09/18 05:10 Phosphorus 3.0 mg/dL (2.5-5.0) 11/09/18 07:18 Magnesium 1.9 mg/dL (1.9-2.7) 11/09/18 05:10 Total Bilirubin 0.3 mg/dL (0.3-1.0) 11/09/18 05:10 AST 15 U/L (13-39) 11/09/18 05:10 ALT 13 U/L (7-52) 11/09/18 05:10 Alkaline Phosphatase 69 U/L (34-104) 11/09/18 05:10 Total Protein 6.3 gm/dL (6.0-8.3) 11/09/18 05:10 Albumin 3.5 gm/dL (4.2-5.5) L 11/09/18 05:10 Globulin 2.8 gm/dL 11/09/18 05:10 Albumin/Globulin Ratio 1.3 (1.0-1.8) 11/09/18 05:10 Triglycerides 111 mg/dL (<150) 11/09/18 05:10 - Physical Exam Vitals and I&O: Vital Signs Temp 97.5 F 11/09/18 19:53 Pulse 88 11/09/18 19:53 Resp 19 11/09/18 19:53 BP 135/75 11/09/18 19:53 Pulse Ox 96 11/09/18 19:53 Intake & Output 11/09/18 11/09/18 11/10/18 06:59 18:59 06:59 Intake Total 105 2480 Balance 105 2480 Weight (lbs) 77.791 kg 77.791 kg Intake: Intake, IV Amount 105 2480 Multivitamin Inj 10 ml 2145 Trace Element 1 ml In Amino Acids 4.25% /Dext 10% 2,160 ml @ 90 mls/hr IV .Q24H [facility] Rx#: [id number] Sodium Chloride 0.9% 250 230 ml @ 10 mls/hr IV Q24H [facility] Rx#:[id number] Valproate Sodium 500 mg 105 105 In Sodium Chloride 0.9% 100 ml @ 100 mls/hr IV Q12HR [facility] Rx#:[id number] Other: # Voids 4 150 # Bowel Movements 0 0 Weight Source Bedscale Bedscale Active Medications: Current Medications Acetaminophen (Tylenol) 650 mg PO Q6HR PRN PRN Reason: Mild Pain or Fever >101 Stop: 01/03/19 16:25 Acetaminophen (Tylenol Extra Strength) 1,000 mg PO Q8HR PRN PRN Reason: Pain (Moderate) Stop: 01/03/19 16:25 Albuterol/Ipratropium (Duoneb Neb) 3 ml HHN Q6HR PRN PRN Reason: Shortness of Breath or Wheeze Stop: 01/03/19 16:25 Ascorbic Acid (Vitamin C) 500 mg PO DAILY [facility] Stop: 01/04/19 08:59 Last Admin: 11/09/18 08:30 Dose: Not Given Aspirin (Aspirin Chewable) 81 mg PO DAILY [facility] Stop: 01/04/19 08:59 Last Admin: 11/09/18 08:30 Dose: Not Given Bisacodyl (Dulcolax 10 Mg Supp) 10 mg RC DAILY PRN PRN Reason: Constipation Stop: 01/03/19 16:25 Clonazepam (Klonopin) 0.5 mg PO BID PRN; Protocol PRN Reason: Agitation Stop: 01/03/19 16:25 Dextrose (D50w) 50 ml IVP PRN PRN PRN Reason: Blood Glucose less than 70 Stop: 01/06/19 14:14 Dextrose (Glutose 40%) 18.75 gm PO PRN PRN PRN Reason: Blood Glucose less than 70 Stop: 01/06/19 14:14 Docusate Sodium (Colace) 100 mg PO BID [facility] Stop: 01/03/19 16:59 Last Admin: 11/09/18 16:00 Dose: Not Given Ferrous Sulfate (Iron) 325 mg PO DAILY [facility] Stop: 01/04/19 08:59 Last Admin: 11/09/18 08:30 Dose: Not Given Glucagon (Glucagen) 1 mg IM PRN PRN PRN Reason: Blood Glucose less than 70 Stop: 01/06/19 14:14 Haloperidol (Haldol) 5 mg PO BID [facility]; Protocol Stop: 01/03/19 16:59 Last Admin: 11/09/18 16:00 Dose: Not Given Haloperidol Lactate (Haldol) 2 mg IM Q6HR PRN PRN Reason: Agitation Stop: 01/03/19 16:25 Haloperidol Lactate (Haldol) 2 mg IM BID [facility] Stop: 01/05/19 16:59 Last Admin: 11/09/18 16:01 Dose: Not Given Heparin Sodium (Porcine) (Heparin) 5,000 units SUBQ Q12HR [facility] Stop: 01/03/19 20:59 Last Admin: 11/09/18 20:14 Dose: 5,000 units Hydroxyzine HCl (Atarax) 10 mg GT TID PRN; Protocol PRN Reason: PRURITUS Stop: 01/03/19 16:25 Valproate Sodium 500 mg/ (Sodium Chloride) 105 mls @ 100 mls/hr IV Q12HR [facility] Stop: 01/04/19 10:59 Last Admin: 11/09/18 20:17 Dose: 100 mls/hr Sodium Chloride (Nacl 0.9%) 250 mls @ 10 mls/hr IV Q24H [facility] Stop: 01/07/19 08:44 Last Admin: 11/09/18 17:59 Dose: 10 mls/hr Multivitamins/Minerals 10 ml/Chromium/Copper/Manganese/Zinc 1 ml/ Amino Acids 2 ,171 mls @ 90 mls/hr IV .Q24H [facility] Stop: 12/05/18 15:59 Last Admin: 11/09/18 15:47 Dose: 90 mls/hr Insulin Human Lispro (Humalog Insulin Sliding Scale) 0 units SUBQ Q6HR [facility]; Protocol Stop: 01/06/19 17:59 Last Admin: 11/09/18 17:55 Dose: Not Given Lactobacillus Rhamnosus (Culturelle 15b) 1 each GT DAILY [facility] Stop: 01/04/19 08:59 Last Admin: 11/09/18 08:39 Dose: Not Given Lactulose (Cephulac) 30 gm PO Q6HR [facility] Stop: 01/03/19 17:59 Last Admin: 11/09/18 17:53 Dose: Not Given Lorazepam (Ativan) 1 mg PO TID [facility]; Protocol Stop: 01/03/19 20:59 Last Admin: 11/09/18 20:15 Dose: Not Given Lorazepam (Ativan) 0.5 mg GT Q6H PRN; Protocol PRN Reason: Anxiety Stop: 01/03/19 16:25 Lorazepam (Ativan) 1 mg IVP Q6H PRN; Protocol PRN Reason: Agitation Stop: 01/04/19 11:20 Last Admin: 11/09/18 22:56 Dose: 1 mg Magnesium Hydroxide (Milk Of Magnesia) 30 ml GT HS PRN PRN Reason: Constipation Stop: 01/03/19 16:25 Midodrine (Proamatine) 5 mg PO TID [facility] Stop: 01/03/19 20:59 Last Admin: 11/09/18 20:16 Dose: Not Given Miscellaneous (Ppn Per Pharmacy) 1 ea MC PRN PRN PRN Reason: PROTOCOL Stop: 01/06/19 11:27 Morphine Sulfate (Morphine) 2 mg IVP Q4HR PRN PRN Reason: Severe Pain Stop: 01/03/19 16:25 Morphine Sulfate (Morphine) 1 mg IVP Q4HR PRN PRN Reason: moderate pain Stop: 01/03/19 16:25 Last Admin: 11/08/18 09:53 Dose: 1 mg Pantoprazole Sodium (Protonix) 40 mg IVP DAILY [facility] Stop: 01/04/19 10:14 Last Admin: 11/09/18 08:30 Dose: 40 mg Pioglitazone HCl (Actos) 15 mg PO DAILY [facility] Stop: 01/04/19 08:59 Last Admin: 11/09/18 08:39 Dose: Not Given Quetiapine Fumarate (Seroquel) 50 mg PO BID [facility]; Protocol Stop: 01/03/19 16:59 Last Admin: 11/09/18 16:00 Dose: Not Given Sodium Phosphate (Fleet Enema) 135 ml RC Q48H PRN PRN Reason: IF DULCOLAX INEFFECTIVE Stop: 01/03/19 16:25 Temazepam (Restoril) 15 mg PO HS PRN; Protocol PRN Reason: IF AMBIEN INEFFECTIVE Stop: 01/03/19 17:07 Tobramycin/Dexamethasone (Tobradex 0.1%-0.3% Ophth Susp 2.5ml) 1 drop RIGHT EYE TID [facility] Stop: 01/03/19 20:59 Last Admin: 11/09/18 20:17 Dose: 1 drop Zolpidem Tartrate (Ambien) 5 mg GT HS [facility] Stop: 01/03/19 20:59 Last Admin: 11/09/18 20:16 Dose: Not Given General: No acute distress Neck: Supple Cardiovascular: Regular rate Lungs: Clear to auscultation Abdomen: Bowel sounds, Soft Neurological: Normal tone - Procedures Procedures: Procedures Procedure Code Date ASSISTANCE WITH RESPIRATORY VENTILATION, <24 HRS, CPAP [id number] 06/01/18 REMOVAL OF FEEDING DEVICE FROM STOMACH, EXTERNAL APPROACH [id number] 06/21/18 Assessment/Plan - Assessment Assessment: 1. Oropharyngeal Dysphagia 2. Significant aspiration 3. Protein calorie malnutrition -COnservator having questions about type of anesthesia for procedure -awaiting consent for egd with PEG tube placement -medically necessary for GT insertion. -awaiting for proper conservator consent
[2018-11-10] MEDS: Lactulose 10 Gm/15 mL 30mL UDC PO SCH ×4 (00:08→18:08)
[2018-11-10] MEDS: INSULIN LISPRO SLIDING SCALE 100 UNITS/ML UNIT SUBQ SCH ×4 (00:10→18:59)
[2018-11-10 06:46] LABS: ALB/GLOB RATIO 1.2 (1.0-1.8); ALBUMIN 3.7 gm/dL (4.2-5.5); ALKALINE PHOSPHATASE 74 U/L (34-104); ANION GAP 10.6 (7.0-16.0); BILIRUBIN,TOTAL 0.3 mg/dL (0.3-1.0); BUN - UREA NITROGEN 11 mg/dL (7-25); CALCIUM SERUM 9.1 mg/dL (8.6-10.3); CARBON DIOXIDE 26.9 mEq/L (21.0-31.0); CHLORIDE 103 mEq/L (98-107); CREATININE - SERUM 0.5 mg/dL (0.7-1.3); GFR AFRICAN-AMERICAN > 60.0 ml/min (>90); GFR NON AFRICAN-AMERICAN > 60.0 ml/min; GLUCOSE 125 mg/dL (70-105); MAGNESIUM 1.7 mg/dL (1.9-2.7); PHOSPHOROUS 3.2 mg/dL (2.5-5.0); POTASSIUM SERUM 4.5 mEq/L (3.5-5.1); SGOT 26 U/L (13-39); SGPT/ALT 18 U/L (7-52); SODIUM SERUM 136 mEq/L (136-145); TOTAL PROTEIN,SERUM 6.9 gm/dL (6.0-8.3)
[2018-11-10] MEDS: Haloperidol Lactate 5 mg/mL 1mL Vial IM SCH ×2 (08:22→16:19)
[2018-11-10] MEDS: Lactobacillus Rhamnosus GG 15 Billion CFU CAP.SPRINK GT SCH (08:28)
[2018-11-10] MEDS: Aspirin 81mg Chewable Tab PO SCH (08:28)
[2018-11-10] MEDS: Ferrous Sulfate 325 MG TAB PO SCH (08:28)
--- NOTE | 2018-11-10 08:52 | GI Progress Note ---
Subjective - Review of Systems Service Date: 11/10/18 Subjective: events noted. Objective - Results Result Diagrams: 11/08/18 06:10 11/10/18 05:54 Recent Labs: Laboratory Last Values WBC 8.8 Th/cmm (4.8-10.8) 11/08/18 06:10 RBC 4.11 Mil/cmm (4.30-5.70) L 11/08/18 06:10 Hgb 11.6 gm/dL (12-16) L 11/08/18 06:10 Hct 36.1 % (41.0-60) L 11/08/18 06:10 MCV 87.9 fl (80-99) 11/08/18 06:10 MCH 28.3 pg (26.0-30.0) 11/08/18 06:10 MCHC Differential 32.2 pg (28.0-36.0) 11/08/18 06:10 RDW 15.2 % (11.5-20.0) 11/08/18 06:10 Plt Count 341 Th/cmm (150-400) 11/08/18 06:10 MPV 7.3 fl 11/08/18 06:10 Add Manual Diff YES 11/05/18 05:15 Neutrophils % 68.8 % (40.0-80.0) 11/08/18 06:10 Band Neutrophils % 1 % (0-10) 11/05/18 05:15 Lymphocytes % 17.7 % (20.0-50.0) L 11/08/18 06:10 Monocytes % 8.0 % (2.0-10.0) 11/08/18 06:10 Eosinophils % 5.0 % (0.0-5.0) 11/08/18 06:10 Basophils % 0.5 % (0.0-2.0) 11/08/18 06:10 Neutrophils (Manual) 85 % (40-80) H 11/05/18 05:15 Lymphocytes 6 % (20-50) L 11/05/18 05:15 Monocytes 8 % (2-10) 11/05/18 05:15 Eosinophils 0 % (0-5) 11/05/18 05:15 Basophils 0 % (0-3) 11/05/18 05:15 PT 9.8 SECONDS (9.5-11.5) 11/07/18 05:55 INR 0.95 (0.5-1.4) 11/07/18 05:55 Sodium 136 mEq/L (136-145) 11/10/18 05:54 Potassium 4.5 mEq/L (3.5-5.1) 11/10/18 05:54 Chloride 103 mEq/L (98-107) 11/10/18 05:54 Carbon Dioxide 26.9 mEq/L (21.0-31.0) 11/10/18 05:54 Anion Gap 10.6 (7.0-16.0) 11/10/18 05:54 BUN 11 mg/dL (7-25) 11/10/18 05:54 Creatinine 0.5 mg/dL (0.7-1.3) L 11/10/18 05:54 Est GFR ( Amer) > 60.0 ml/min (>90) 11/10/18 05:54 Est GFR (Non-Af Amer) > 60.0 ml/min 11/10/18 05:54 BUN/Creatinine Ratio 22.0 11/10/18 05:54 Glucose 125 mg/dL (70-105) H 11/10/18 05:54 POC Glucose 132 MG/DL (70 - 105) H 11/10/18 05:16 Calcium 9.1 mg/dL (8.6-10.3) 11/10/18 05:54 Phosphorus 3.2 mg/dL (2.5-5.0) 11/10/18 05:54 Magnesium 1.7 mg/dL (1.9-2.7) L 11/10/18 05:54 Total Bilirubin 0.3 mg/dL (0.3-1.0) 11/10/18 05:54 AST 26 U/L (13-39) 11/10/18 05:54 ALT 18 U/L (7-52) 11/10/18 05:54 Alkaline Phosphatase 74 U/L (34-104) 11/10/18 05:54 Total Protein 6.9 gm/dL (6.0-8.3) 11/10/18 05:54 Albumin 3.7 gm/dL (4.2-5.5) L 11/10/18 05:54 Globulin 3.2 gm/dL 11/10/18 05:54 Albumin/Globulin Ratio 1.2 (1.0-1.8) 11/10/18 05:54 Prealbumin 12 mg/dL (10-36) 11/09/18 05:10 Triglycerides 111 mg/dL (<150) 11/09/18 05:10 - Physical Exam Vitals and I&O: Vital Signs Temp 97.7 F 11/10/18 08:00 Pulse 69 11/10/18 08:00 Resp 22 11/10/18 08:00 BP 169/83 11/10/18 08:00 Pulse Ox 97 11/10/18 04:00 Intake & Output 11/09/18 11/10/18 11/10/18 18:59 06:59 18:59 Intake Total 2480 105 Output Total 950 Balance 2480 -845 Weight (lbs) 77.791 kg 77.791 kg Intake: Intake, IV Amount 2480 105 Multivitamin Inj 10 ml 2145 Trace Element 1 ml In Amino Acids 4.25% /Dext 10% 2,160 ml @ 90 mls/hr IV .Q24H [facility] Rx#: [id number] Sodium Chloride 0.9% 250 230 ml @ 10 mls/hr IV Q24H [facility] Rx#:[id number] Valproate Sodium 500 mg 105 105 In Sodium Chloride 0.9% 100 ml @ 100 mls/hr IV Q12HR [facility] Rx#:[id number] Oral 0 Output: Urine 950 Other: # Voids 4 # Bowel Movements 0 0 Weight Source Bedscale Bedscale Active Medications: Current Medications Acetaminophen (Tylenol) 650 mg PO Q6HR PRN PRN Reason: Mild Pain or Fever >101 Stop: 01/03/19 16:25 Acetaminophen (Tylenol Extra Strength) 1,000 mg PO Q8HR PRN PRN Reason: Pain (Moderate) Stop: 01/03/19 16:25 Albuterol/Ipratropium (Duoneb Neb) 3 ml HHN Q6HR PRN PRN Reason: Shortness of Breath or Wheeze Stop: 01/03/19 16:25 Ascorbic Acid (Vitamin C) 500 mg PO DAILY [facility] Stop: 01/04/19 08:59 Last Admin: 11/10/18 08:28 Dose: Not Given Aspirin (Aspirin Chewable) 81 mg PO DAILY [facility] Stop: 01/04/19 08:59 Last Admin: 11/10/18 08:28 Dose: Not Given Bisacodyl (Dulcolax 10 Mg Supp) 10 mg RC DAILY PRN PRN Reason: Constipation Stop: 01/03/19 16:25 Clonazepam (Klonopin) 0.5 mg PO BID PRN; Protocol PRN Reason: Agitation Stop: 01/03/19 16:25 Dextrose (D50w) 50 ml IVP PRN PRN PRN Reason: Blood Glucose less than 70 Stop: 01/06/19 14:14 Dextrose (Glutose 40%) 18.75 gm PO PRN PRN PRN Reason: Blood Glucose less than 70 Stop: 01/06/19 14:14 Docusate Sodium (Colace) 100 mg PO BID [facility] Stop: 01/03/19 16:59 Last Admin: 11/10/18 08:27 Dose: Not Given Ferrous Sulfate (Iron) 325 mg PO DAILY [facility] Stop: 01/04/19 08:59 Last Admin: 11/10/18 08:28 Dose: Not Given Glucagon (Glucagen) 1 mg IM PRN PRN PRN Reason: Blood Glucose less than 70 Stop: 01/06/19 14:14 Haloperidol (Haldol) 5 mg PO BID [facility]; Protocol Stop: 01/03/19 16:59 Last Admin: 11/10/18 08:27 Dose: Not Given Haloperidol Lactate (Haldol) 2 mg IM Q6HR PRN PRN Reason: Agitation Stop: 01/03/19 16:25 Haloperidol Lactate (Haldol) 2 mg IM BID [facility] Stop: 01/05/19 16:59 Last Admin: 11/10/18 08:22 Dose: 2 mg Heparin Sodium (Porcine) (Heparin) 5,000 units SUBQ Q12HR [facility] Stop: 01/03/19 20:59 Last Admin: 11/10/18 08:22 Dose: 5,000 units Hydroxyzine HCl (Atarax) 10 mg GT TID PRN; Protocol PRN Reason: PRURITUS Stop: 01/03/19 16:25 Valproate Sodium 500 mg/ (Sodium Chloride) 105 mls @ 100 mls/hr IV Q12HR [facility] Stop: 01/04/19 10:59 Last Infusion: 11/09/18 21:20 Dose: Infused Sodium Chloride (Nacl 0.9%) 250 mls @ 10 mls/hr IV Q24H [facility] Stop: 01/07/19 08:44 Last Admin: 11/09/18 17:59 Dose: 10 mls/hr Multivitamins/Minerals 10 ml/Chromium/Copper/Manganese/Zinc 1 ml/ Amino Acids 2 ,171 mls @ 90 mls/hr IV .Q24H [facility] Stop: 12/05/18 15:59 Last Admin: 11/09/18 15:47 Dose: 90 mls/hr Insulin Human Lispro (Humalog Insulin Sliding Scale) 0 units SUBQ Q6HR [facility]; Protocol Stop: 01/06/19 17:59 Last Admin: 11/10/18 05:41 Dose: Not Given Lactobacillus Rhamnosus (Culturelle 15b) 1 each GT DAILY [facility] Stop: 01/04/19 08:59 Last Admin: 11/10/18 08:28 Dose: Not Given Lactulose (Cephulac) 30 gm PO Q6HR [facility] Stop: 01/03/19 17:59 Last Admin: 11/10/18 05:40 Dose: Not Given Lorazepam (Ativan) 1 mg PO TID [facility]; Protocol Stop: 01/03/19 20:59 Last Admin: 11/10/18 08:27 Dose: Not Given Lorazepam (Ativan) 0.5 mg GT Q6H PRN; Protocol PRN Reason: Anxiety Stop: 01/03/19 16:25 Lorazepam (Ativan) 1 mg IVP Q6H PRN; Protocol PRN Reason: Agitation Stop: 01/04/19 11:20 Last Admin: 11/09/18 22:56 Dose: 1 mg Magnesium Hydroxide (Milk Of Magnesia) 30 ml GT HS PRN PRN Reason: Constipation Stop: 01/03/19 16:25 Midodrine (Proamatine) 5 mg PO TID [facility] Stop: 01/03/19 20:59 Last Admin: 11/10/18 08:28 Dose: Not Given Miscellaneous (Ppn Per Pharmacy) 1 ea MC PRN PRN PRN Reason: PROTOCOL Stop: 01/06/19 11:27 Morphine Sulfate (Morphine) 2 mg IVP Q4HR PRN PRN Reason: Severe Pain Stop: 01/03/19 16:25 Morphine Sulfate (Morphine) 1 mg IVP Q4HR PRN PRN Reason: moderate pain Stop: 01/03/19 16:25 Last Admin: 11/08/18 09:53 Dose: 1 mg Pantoprazole Sodium (Protonix) 40 mg IVP DAILY [facility] Stop: 01/04/19 10:14 Last Admin: 11/10/18 08:27 Dose: 40 mg Pioglitazone HCl (Actos) 15 mg PO DAILY [facility] Stop: 01/04/19 08:59 Last Admin: 11/10/18 08:28 Dose: Not Given Quetiapine Fumarate (Seroquel) 50 mg PO BID [facility]; Protocol Stop: 01/03/19 16:59 Last Admin: 11/10/18 08:27 Dose: Not Given Sodium Phosphate (Fleet Enema) 135 ml RC Q48H PRN PRN Reason: IF DULCOLAX INEFFECTIVE Stop: 01/03/19 16:25 Temazepam (Restoril) 15 mg PO HS PRN; Protocol PRN Reason: IF AMBIEN INEFFECTIVE Stop: 01/03/19 17:07 Tobramycin/Dexamethasone (Tobradex 0.1%-0.3% Ophth Susp 2.5ml) 1 drop RIGHT EYE TID [facility] Stop: 01/03/19 20:59 Last Admin: 11/09/18 20:17 Dose: 1 drop Zolpidem Tartrate (Ambien) 5 mg GT HS [facility] Stop: 01/03/19 20:59 Last Admin: 11/09/18 20:16 Dose: Not Given General: No acute distress HEENT: PERRLA, EOMI Neck: Supple Cardiovascular: Regular rate Lungs: Clear to auscultation Abdomen: Bowel sounds, Soft Neurological: Normal tone - Procedures Procedures: Procedures Procedure Code Date ASSISTANCE WITH RESPIRATORY VENTILATION, <24 HRS, CPAP [id number] 06/01/18 REMOVAL OF FEEDING DEVICE FROM STOMACH, EXTERNAL APPROACH [id number] 06/21/18 Assessment/Plan - Assessment Assessment: 1. Oropharyngeal Dysphagia 2. Significant aspiration per speech evaluation. 3. Protein calorie malnutrition -awaiting consent for egd with PEG tube placement -medically necessary for GT insertion. -awaiting for proper conservator consent. -TPN for now.
[2018-11-10] MEDS: Valproate Sodium 500 MG in Sodium Chloride 0.9% 100 ML IV SCH ×2 (08:54→20:20)
--- NOTE | 2018-11-10 11:26 | Internal Medicine Prog Note ---
Internal Medicine Subjective - Subjective Patient seen and examined:: chart reviewed Patient is:: awake, verbal, confused, other (no events) Patient Complaints of:: other (Dysphagia.) Per staff patient has:: no adverse event, no episodes of fall, poor oral intake , agitated, confused Internal Medicine Objective - Results Result Diagrams: 11/08/18 06:10 11/10/18 05:54 Recent Labs: Laboratory Last Values WBC 8.8 Th/cmm (4.8-10.8) 11/08/18 06:10 RBC 4.11 Mil/cmm (4.30-5.70) L 11/08/18 06:10 Hgb 11.6 gm/dL (12-16) L 11/08/18 06:10 Hct 36.1 % (41.0-60) L 11/08/18 06:10 MCV 87.9 fl (80-99) 11/08/18 06:10 MCH 28.3 pg (26.0-30.0) 11/08/18 06:10 MCHC Differential 32.2 pg (28.0-36.0) 11/08/18 06:10 RDW 15.2 % (11.5-20.0) 11/08/18 06:10 Plt Count 341 Th/cmm (150-400) 11/08/18 06:10 MPV 7.3 fl 11/08/18 06:10 Add Manual Diff YES 11/05/18 05:15 Neutrophils % 68.8 % (40.0-80.0) 11/08/18 06:10 Band Neutrophils % 1 % (0-10) 11/05/18 05:15 Lymphocytes % 17.7 % (20.0-50.0) L 11/08/18 06:10 Monocytes % 8.0 % (2.0-10.0) 11/08/18 06:10 Eosinophils % 5.0 % (0.0-5.0) 11/08/18 06:10 Basophils % 0.5 % (0.0-2.0) 11/08/18 06:10 Neutrophils (Manual) 85 % (40-80) H 11/05/18 05:15 Lymphocytes 6 % (20-50) L 11/05/18 05:15 Monocytes 8 % (2-10) 11/05/18 05:15 Eosinophils 0 % (0-5) 11/05/18 05:15 Basophils 0 % (0-3) 11/05/18 05:15 PT 9.8 SECONDS (9.5-11.5) 11/07/18 05:55 INR 0.95 (0.5-1.4) 11/07/18 05:55 Sodium 136 mEq/L (136-145) 11/10/18 05:54 Potassium 4.5 mEq/L (3.5-5.1) 11/10/18 05:54 Chloride 103 mEq/L (98-107) 11/10/18 05:54 Carbon Dioxide 26.9 mEq/L (21.0-31.0) 11/10/18 05:54 Anion Gap 10.6 (7.0-16.0) 11/10/18 05:54 BUN 11 mg/dL (7-25) 11/10/18 05:54 Creatinine 0.5 mg/dL (0.7-1.3) L 11/10/18 05:54 Est GFR ( Amer) > 60.0 ml/min (>90) 11/10/18 05:54 Est GFR (Non-Af Amer) > 60.0 ml/min 11/10/18 05:54 BUN/Creatinine Ratio 22.0 11/10/18 05:54 Glucose 125 mg/dL (70-105) H 11/10/18 05:54 POC Glucose 132 MG/DL (70 - 105) H 11/10/18 05:16 Calcium 9.1 mg/dL (8.6-10.3) 11/10/18 05:54 Phosphorus 3.2 mg/dL (2.5-5.0) 11/10/18 05:54 Magnesium 1.7 mg/dL (1.9-2.7) L 11/10/18 05:54 Total Bilirubin 0.3 mg/dL (0.3-1.0) 11/10/18 05:54 AST 26 U/L (13-39) 11/10/18 05:54 ALT 18 U/L (7-52) 11/10/18 05:54 Alkaline Phosphatase 74 U/L (34-104) 11/10/18 05:54 Total Protein 6.9 gm/dL (6.0-8.3) 11/10/18 05:54 Albumin 3.7 gm/dL (4.2-5.5) L 11/10/18 05:54 Globulin 3.2 gm/dL 11/10/18 05:54 Albumin/Globulin Ratio 1.2 (1.0-1.8) 11/10/18 05:54 Prealbumin 12 mg/dL (10-36) 11/09/18 05:10 Triglycerides 111 mg/dL (<150) 11/09/18 05:10 - Physical Exam Vitals and I&O: Vital Signs Temp 97.7 F 11/10/18 08:00 Pulse 69 11/10/18 08:00 Resp 19 11/10/18 11:17 BP 169/83 11/10/18 08:00 Pulse Ox 97 11/10/18 04:00 Intake & Output 11/09/18 11/10/18 11/10/18 18:59 06:59 18:59 Intake Total 2480 105 0 Output Total 950 300 Balance 2480 -845 -300 Weight (lbs) 77.791 kg 77.791 kg 63.231 kg Intake: Intake, IV Amount 2480 105 Multivitamin Inj 10 ml 2145 Trace Element 1 ml In Amino Acids 4.25% /Dext 10% 2,160 ml @ 90 mls/hr IV .Q24H [facility] Rx#: [id number] Sodium Chloride 0.9% 250 230 ml @ 10 mls/hr IV Q24H [facility] Rx#:[id number] Valproate Sodium 500 mg 105 105 In Sodium Chloride 0.9% 100 ml @ 100 mls/hr IV Q12HR [facility] Rx#:[id number] Oral 0 0 Output: Urine 950 300 Other: # Voids 4 # Bowel Movements 0 0 0 Weight Source Bedscale Bedscale Bedscale Active Medications: Current Medications Acetaminophen (Tylenol) 650 mg PO Q6HR PRN PRN Reason: Mild Pain or Fever >101 Stop: 01/03/19 16:25 Acetaminophen (Tylenol Extra Strength) 1,000 mg PO Q8HR PRN PRN Reason: Pain (Moderate) Stop: 01/03/19 16:25 Albuterol/Ipratropium (Duoneb Neb) 3 ml HHN Q6HR PRN PRN Reason: Shortness of Breath or Wheeze Stop: 01/03/19 16:25 Ascorbic Acid (Vitamin C) 500 mg PO DAILY [facility] Stop: 01/04/19 08:59 Last Admin: 11/10/18 08:28 Dose: Not Given Aspirin (Aspirin Chewable) 81 mg PO DAILY [facility] Stop: 01/04/19 08:59 Last Admin: 11/10/18 08:28 Dose: Not Given Bisacodyl (Dulcolax 10 Mg Supp) 10 mg RC DAILY PRN PRN Reason: Constipation Stop: 01/03/19 16:25 Clonazepam (Klonopin) 0.5 mg PO BID PRN; Protocol PRN Reason: Agitation Stop: 01/03/19 16:25 Dextrose (D50w) 50 ml IVP PRN PRN PRN Reason: Blood Glucose less than 70 Stop: 01/06/19 14:14 Dextrose (Glutose 40%) 18.75 gm PO PRN PRN PRN Reason: Blood Glucose less than 70 Stop: 01/06/19 14:14 Docusate Sodium (Colace) 100 mg PO BID [facility] Stop: 01/03/19 16:59 Last Admin: 11/10/18 08:27 Dose: Not Given Ferrous Sulfate (Iron) 325 mg PO DAILY [facility] Stop: 01/04/19 08:59 Last Admin: 11/10/18 08:28 Dose: Not Given Glucagon (Glucagen) 1 mg IM PRN PRN PRN Reason: Blood Glucose less than 70 Stop: 01/06/19 14:14 Haloperidol (Haldol) 5 mg PO BID [facility]; Protocol Stop: 01/03/19 16:59 Last Admin: 11/10/18 08:27 Dose: Not Given Haloperidol Lactate (Haldol) 2 mg IM Q6HR PRN PRN Reason: Agitation Stop: 01/03/19 16:25 Haloperidol Lactate (Haldol) 2 mg IM BID [facility] Stop: 01/05/19 16:59 Last Admin: 11/10/18 08:22 Dose: 2 mg Heparin Sodium (Porcine) (Heparin) 5,000 units SUBQ Q12HR [facility] Stop: 01/03/19 20:59 Last Admin: 11/10/18 08:22 Dose: 5,000 units Hydroxyzine HCl (Atarax) 10 mg GT TID PRN; Protocol PRN Reason: PRURITUS Stop: 01/03/19 16:25 Valproate Sodium 500 mg/ (Sodium Chloride) 105 mls @ 100 mls/hr IV Q12HR [facility] Stop: 01/04/19 10:59 Last Admin: 11/10/18 08:54 Dose: 100 mls/hr Sodium Chloride (Nacl 0.9%) 250 mls @ 10 mls/hr IV Q24H [facility] Stop: 01/07/19 08:44 Last Admin: 11/09/18 17:59 Dose: 10 mls/hr Multivitamins/Minerals 10 ml/Chromium/Copper/Manganese/Zinc 1 ml/ Amino Acids 2 ,171 mls @ 90 mls/hr IV .Q24H [facility] Stop: 12/05/18 15:59 Last Admin: 11/09/18 15:47 Dose: 90 mls/hr Insulin Human Lispro (Humalog Insulin Sliding Scale) 0 units SUBQ Q6HR [facility]; Protocol Stop: 01/06/19 17:59 Last Admin: 11/10/18 05:41 Dose: Not Given Lactobacillus Rhamnosus (Culturelle 15b) 1 each GT DAILY [facility] Stop: 01/04/19 08:59 Last Admin: 11/10/18 08:28 Dose: Not Given Lactulose (Cephulac) 30 gm PO Q6HR [facility] Stop: 01/03/19 17:59 Last Admin: 11/10/18 05:40 Dose: Not Given Lorazepam (Ativan) 1 mg PO TID [facility]; Protocol Stop: 01/03/19 20:59 Last Admin: 11/10/18 08:27 Dose: Not Given Lorazepam (Ativan) 0.5 mg GT Q6H PRN; Protocol PRN Reason: Anxiety Stop: 01/03/19 16:25 Lorazepam (Ativan) 1 mg IVP Q6H PRN; Protocol PRN Reason: Agitation Stop: 01/04/19 11:20 Last Admin: 11/10/18 10:13 Dose: 1 mg Magnesium Hydroxide (Milk Of Magnesia) 30 ml GT HS PRN PRN Reason: Constipation Stop: 01/03/19 16:25 Midodrine (Proamatine) 5 mg PO TID [facility] Stop: 01/03/19 20:59 Last Admin: 11/10/18 08:28 Dose: Not Given Miscellaneous (Ppn Per Pharmacy) 1 ea MC PRN PRN PRN Reason: PROTOCOL Stop: 01/06/19 11:27 Morphine Sulfate (Morphine) 2 mg IVP Q4HR PRN PRN Reason: Severe Pain Stop: 01/03/19 16:25 Morphine Sulfate (Morphine) 1 mg IVP Q4HR PRN PRN Reason: moderate pain Stop: 01/03/19 16:25 Last Admin: 11/08/18 09:53 Dose: 1 mg Pantoprazole Sodium (Protonix) 40 mg IVP DAILY [facility] Stop: 01/04/19 10:14 Last Admin: 11/10/18 08:27 Dose: 40 mg Pioglitazone HCl (Actos) 15 mg PO DAILY [facility] Stop: 01/04/19 08:59 Last Admin: 11/10/18 08:28 Dose: Not Given Quetiapine Fumarate (Seroquel) 50 mg PO BID [facility]; Protocol Stop: 01/03/19 16:59 Last Admin: 11/10/18 08:27 Dose: Not Given Sodium Phosphate (Fleet Enema) 135 ml RC Q48H PRN PRN Reason: IF DULCOLAX INEFFECTIVE Stop: 01/03/19 16:25 Temazepam (Restoril) 15 mg PO HS PRN; Protocol PRN Reason: IF AMBIEN INEFFECTIVE Stop: 01/03/19 17:07 Tobramycin/Dexamethasone (Tobradex 0.1%-0.3% Ophth Susp 2.5ml) 1 drop RIGHT EYE TID [facility] Stop: 01/03/19 20:59 Last Admin: 11/09/18 20:17 Dose: 1 drop Zolpidem Tartrate (Ambien) 5 mg GT HS [facility] Stop: 01/03/19 20:59 Last Admin: 11/09/18 20:16 Dose: Not Given General: lethargic, other (Irritable) HEENT: NC/AT, PERRLA Neck: Supple, No JVD Cardiovascular: Normal S1, Normal S2 Abdomen: soft, non-distended Extremities: other (Right upper paralysis.) Neurological: no change, disorganized - Procedures Procedures: Procedures Procedure Code Date ASSISTANCE WITH RESPIRATORY VENTILATION, <24 HRS, CPAP [id number] 06/01/18 REMOVAL OF FEEDING DEVICE FROM STOMACH, EXTERNAL APPROACH [id number] 06/21/18 Internal Medicine Assmt/Plan - Assessment Assessment: Irritable mood Agitated Confused Aspiration Right upper extremity paralysis Htn Asthma Copd Dyslipidemia Schizophrenia Bipolar Disorder Dysphagia Moderate Protein- Calorie Malnutrition - Plan Plan: Continue to Monitor patient closely Monitor vitals, Continue Bp meds as directed Continue present meds as directed Continue IV fluids for Hydration Followup with GI for possible PEG Monitor diet/nutritional support Aspiration precaution Followup with Dr. Mcleod for Psych Management Fall precaution Continue present care management Nutritional Asmnt/Malnutr-PDOC - Dietary Evaluation Malnutrition Findings (Please click <Entered> for more info): Nutritional Asmnt/Malnutrition Start: 11/08/18 15: 37 Text: Status: Complete Freq: Protocol: Document 11/08/18 15:37 LCHENG (Rec: 11/08/18 16:03 HEN [email or web address]) Nutritional Asmnt/Malnutrition Patient General Information Nutritional Screening Moderate Risk Diagnosis dysphagia Pertinent Medical Hx/Surgical Hx right upper extremity paralysis, HTN, asthma, COPD, dyslipidemia, schizophrenia, bipolar disorder Subjective Information Pt seen in lasha-chair, confused with unclear speech, has 1:1 sitter. Per nurse note , pt failed swallow eval on and ST recommended NPO with alternative nutrition route. Waiting for PEG consent. Pt is now on PPN. Current Diet Order/ Nutrition Support Dex 8%, AA 4% at 90ml/hr, providing 933kcal, 86g protein Pertinent Medications vit C, colace, iron, humalog, culturelle, seroquel, nacl 0.9 % Pertinent Labs 11/08 BUN 4, Cr 0.5, glucose 128, POC 100-112, Ca 8.4, Mg 1 .6, Alb 3.3 Nutritional Hx/Data Height 1.65 m Height (Calculated Centimeters) 165.1 Current Weight (lbs) 77.564 kg Weight (Calculated Kilograms) 77.6 Weight (Calculated Grams) 59728.3 [place] Body Weight 136 Body Mass Index (BMI) 28.4 Weight Status Overweight GI Symptoms GI Symptoms None Last BM 11/05 Difficult in: None Skin Integrity/Comment: bruise to posterior head Current %PO Negligible < 25% Estimated Nutritional Goals BEE in Kcals: Using Current wt Calories/Kcals/Kg 23-27 Kcals Calculated 4106-6385 Protein: Using Current wt Protein g/k Protein Calculated 78 Fluid: ml 1794-2106ml (1ml/kcal) Nutritional Problem 2. Problem Problem altered nutrition labs Etiology electrolytes imbalance Signs/Symptoms: mg 1.6, Ca 8.4 1. Problem Problem altered GI function Etiology pt failed swallow eval Signs/Symptoms: pt on PPN and need for PEG Malnutrition Alert Is there a minimum of two criteria No selected? Query Text:Check all the applicable criteria. A minimum of two criteria are recommended for diagnosis of either severe or non-severe malnutrition. Malnutrition Related to Morbid Obesity Malnutrition related to morbid obesity No Intervention/Recommendation Comments 1. Recommend PPN to meet 1794kcal and 78g protein. Recomendation sent to pharmacy . 2. Initiat TF after PEG placement. 3. Monitor PO intake, wt, labs and skin integrity 4. F/U as high risk in 2-3 days Expected Outcomes/Goals Expected Outcomes/Goals 1. Pt to meet at least 90% of nutritional needs via nutrition support with tolerance 2. Wt stability, skin to remain intact, labs to approach WNL.
[2018-11-10] MEDS: Dexamethasone/Tobramycin Ophth Susp 2.5 mL Bottle RIGHT EYE SCH ×3 (12:47→20:20)
[2018-11-10] MEDS: Sodium Chloride 0.9% 250 ML IV SCH (14:57)
[2018-11-10] MEDS: Haloperidol Lactate 5 mg/mL 1mL Vial IM PRN (15:27)
[2018-11-10] MEDS: PPN D20%/AMI 8.5% IV SCH (15:59)
[2018-11-11] MEDS: INSULIN LISPRO SLIDING SCALE 100 UNITS/ML UNIT SUBQ SCH ×4 (00:03→18:33)
[2018-11-11] MEDS: Lactulose 10 Gm/15 mL 30mL UDC PO SCH ×4 (00:03→19:33)
--- NOTE | 2018-11-11 04:22 | Progress Notes ---
DATE: SUBJECTIVE: The patient was seen, chart reviewed, and findings were discussed with staff. The patient continues to be very aggressive, easily irritable, and sometimes quite intrusive and loud. Continues to try and pulling his IVs. He has been compliant with medication, which he receives via IV. PLAN: The patient continues to be psychotic and unpredictable, so that he will require inpatient care center treatment. We will monitor on daily basis for response to medications and titrate as needed. JOB# [id number]
[2018-11-11 07:21] LABS: % BASOPHILS 0.7 % (0.0-2.0); % EOSINOPHILS 3.5 % (0.0-5.0); % LYMPHOCYTES 14.9 % (20.0-50.0); % MONOCYTES 9.3 % (2.0-10.0); % NEUTROPHILS 71.6 % (40.0-80.0); BASOPHILE ABSOLUTE 0.1 Th/cumm (0-0.2); EOSINOPHILE ABSOLUTE 0.4 Th/cmm (0.1-0.4); HEMATOCRIT 44.1 % (41.0-60); HEMOGLOBIN 14.3 gm/dL (12-16); LYMPHOCYTE ABSOLUTE 1.8 Th/cmm (1.5-3.0); MEAN CELL VOLUME 87.8 fl (80-99); MEAN CORPUSCULAR HEMOGLOBIN 28.4 pg (26.0-30.0); MEAN CORPUSCULAR HGB CONC 32.3 pg (28.0-36.0); MONOCYTE ABSOLUTE 1.1 Th/cmm (0.3-1.0); NEUTROPHILE ABSOLUTE 8.9 Th/cmm (1.8-8.0); PLATELET COUNT 375 Th/cmm (150-400); RED BLOOD COUNT 5.02 Mil/cmm (4.30-5.70); RED CELL DISTRIBUTION WIDTH 15.4 % (11.5-20.0); WHITE BLOOD COUNT 12.3 Th/cmm (4.8-10.8)
[2018-11-11 07:33] LABS: ALB/GLOB RATIO 1.2 (1.0-1.8); ALBUMIN 3.9 gm/dL (4.2-5.5); ALKALINE PHOSPHATASE 90 U/L (34-104); ANION GAP 12.8 (7.0-16.0); BILIRUBIN,TOTAL 0.4 mg/dL (0.3-1.0); BUN - UREA NITROGEN 14 mg/dL (7-25); CALCIUM SERUM 9.5 mg/dL (8.6-10.3); CARBON DIOXIDE 26.6 mEq/L (21.0-31.0); CHLORIDE 102 mEq/L (98-107); CREATININE - SERUM 0.6 mg/dL (0.7-1.3); GFR AFRICAN-AMERICAN > 60.0 ml/min (>90); GFR NON AFRICAN-AMERICAN > 60.0 ml/min; GLUCOSE 94 mg/dL (70-105); PHOSPHOROUS 3.6 mg/dL (2.5-5.0); POTASSIUM SERUM 4.4 mEq/L (3.5-5.1); SGOT 27 U/L (13-39); SGPT/ALT 25 U/L (7-52); SODIUM SERUM 137 mEq/L (136-145); TOTAL PROTEIN,SERUM 7.2 gm/dL (6.0-8.3)
[2018-11-11] MEDS: Valproate Sodium 500 MG in Sodium Chloride 0.9% 100 ML IV SCH ×2 (09:14→20:13)
[2018-11-11] MEDS: Haloperidol Lactate 5 mg/mL 1mL Vial IM SCH ×2 (09:49→16:15)
[2018-11-11] MEDS: Aspirin 81mg Chewable Tab PO SCH (10:36)
[2018-11-11] MEDS: Ferrous Sulfate 325 MG TAB PO SCH (10:36)
[2018-11-11] MEDS: Lactobacillus Rhamnosus GG 15 Billion CFU CAP.SPRINK GT SCH (10:36)
[2018-11-11] MEDS: Dexamethasone/Tobramycin Ophth Susp 2.5 mL Bottle RIGHT EYE SCH ×3 (10:39→20:13)
--- NOTE | 2018-11-11 10:55 | Internal Medicine Prog Note ---
Internal Medicine Subjective - Subjective Service Date: 11/11/18 Patient seen and examined:: chart reviewed Patient is:: awake, verbal, agitated, confused, other (continues to be aggressive.) Patient Complaints of:: other (Dysphagia.) Per staff patient has:: no adverse event, no episodes of fall, poor oral intake , agitated, confused Internal Medicine Objective - Results Result Diagrams: 11/11/18 05:45 11/11/18 05:45 Recent Labs: Laboratory Last Values WBC 12.3 Th/cmm (4.8-10.8) H 11/11/18 05:45 RBC 5.02 Mil/cmm (4.30-5.70) 11/11/18 05:45 Hgb 14.3 gm/dL (12-16) 11/11/18 05:45 Hct 44.1 % (41.0-60) 11/11/18 05:45 MCV 87.8 fl (80-99) 11/11/18 05:45 MCH 28.4 pg (26.0-30.0) 11/11/18 05:45 MCHC Differential 32.3 pg (28.0-36.0) 11/11/18 05:45 RDW 15.4 % (11.5-20.0) 11/11/18 05:45 Plt Count 375 Th/cmm (150-400) 11/11/18 05:45 MPV 8.0 fl 11/11/18 05:45 Add Manual Diff YES 11/05/18 05:15 Neutrophils % 71.6 % (40.0-80.0) 11/11/18 05:45 Band Neutrophils % 1 % (0-10) 11/05/18 05:15 Lymphocytes % 14.9 % (20.0-50.0) L 11/11/18 05:45 Monocytes % 9.3 % (2.0-10.0) 11/11/18 05:45 Eosinophils % 3.5 % (0.0-5.0) 11/11/18 05:45 Basophils % 0.7 % (0.0-2.0) 11/11/18 05:45 Neutrophils (Manual) 85 % (40-80) H 11/05/18 05:15 Lymphocytes 6 % (20-50) L 11/05/18 05:15 Monocytes 8 % (2-10) 11/05/18 05:15 Eosinophils 0 % (0-5) 11/05/18 05:15 Basophils 0 % (0-3) 11/05/18 05:15 PT 9.8 SECONDS (9.5-11.5) 11/07/18 05:55 INR 0.95 (0.5-1.4) 11/07/18 05:55 Sodium 137 mEq/L (136-145) 11/11/18 05:45 Potassium 4.4 mEq/L (3.5-5.1) 11/11/18 05:45 Chloride 102 mEq/L (98-107) 11/11/18 05:45 Carbon Dioxide 26.6 mEq/L (21.0-31.0) 11/11/18 05:45 Anion Gap 12.8 (7.0-16.0) 11/11/18 05:45 BUN 14 mg/dL (7-25) 11/11/18 05:45 Creatinine 0.6 mg/dL (0.7-1.3) L 11/11/18 05:45 Est GFR ( Amer) > 60.0 ml/min (>90) 11/11/18 05:45 Est GFR (Non-Af Amer) > 60.0 ml/min 11/11/18 05:45 BUN/Creatinine Ratio 23.3 11/11/18 05:45 Glucose 94 mg/dL (70-105) 11/11/18 05:45 POC Glucose 110 MG/DL (70 - 105) H 11/11/18 05:23 Calcium 9.5 mg/dL (8.6-10.3) 11/11/18 05:45 Phosphorus 3.6 mg/dL (2.5-5.0) 11/11/18 05:45 Magnesium 2.0 mg/dL (1.9-2.7) 11/11/18 05:45 Total Bilirubin 0.4 mg/dL (0.3-1.0) 11/11/18 05:45 AST 27 U/L (13-39) 11/11/18 05:45 ALT 25 U/L (7-52) 11/11/18 05:45 Alkaline Phosphatase 90 U/L (34-104) 11/11/18 05:45 Total Protein 7.2 gm/dL (6.0-8.3) 11/11/18 05:45 Albumin 3.9 gm/dL (4.2-5.5) L 11/11/18 05:45 Globulin 3.3 gm/dL 11/11/18 05:45 Albumin/Globulin Ratio 1.2 (1.0-1.8) 11/11/18 05:45 Prealbumin 12 mg/dL (10-36) 11/09/18 05:10 Triglycerides 111 mg/dL (<150) 11/09/18 05:10 - Physical Exam Vitals and I&O: Vital Signs Temp 98.3 F 11/11/18 07:57 Pulse 87 11/11/18 07:57 Resp 20 11/11/18 07:57 BP 141/85 11/11/18 07:57 Pulse Ox 96 11/11/18 07:57 Intake & Output 11/10/18 11/11/18 11/11/18 18:59 06:59 18:59 Intake Total 2423.667 105 Output Total 1525 Balance 898.667 105 Weight (lbs) 63.231 kg 63.231 kg Intake: Intake, IV Amount 2423.667 105 Multivitamin Inj 10 ml 2171 Trace Element 1 ml In Amino Acids 4.25% /Dext 10% 2,160 ml @ 90 mls/hr IV .Q24H [facility] Rx#: [id number] Sodium Chloride 0.9% 250 147.667 ml @ 10 mls/hr IV Q24H [facility] Rx#:[id number] Valproate Sodium 500 mg 105 105 In Sodium Chloride 0.9% 100 ml @ 100 mls/hr IV Q12HR [facility] Rx#:[id number] Oral 0 Output: Urine 1525 Other: # Voids 3 # Bowel Movements 0 0 Weight Source Bedscale Bedscale Active Medications: Current Medications Acetaminophen (Tylenol) 650 mg PO Q6HR PRN PRN Reason: Mild Pain or Fever >101 Stop: 01/03/19 16:25 Acetaminophen (Tylenol Extra Strength) 1,000 mg PO Q8HR PRN PRN Reason: Pain (Moderate) Stop: 01/03/19 16:25 Albuterol/Ipratropium (Duoneb Neb) 3 ml HHN Q6HR PRN PRN Reason: Shortness of Breath or Wheeze Stop: 01/03/19 16:25 Ascorbic Acid (Vitamin C) 500 mg PO DAILY [facility] Stop: 01/04/19 08:59 Last Admin: 11/11/18 10:36 Dose: Not Given Aspirin (Aspirin Chewable) 81 mg PO DAILY [facility] Stop: 01/04/19 08:59 Last Admin: 11/11/18 10:36 Dose: Not Given Bisacodyl (Dulcolax 10 Mg Supp) 10 mg RC DAILY PRN PRN Reason: Constipation Stop: 01/03/19 16:25 Clonazepam (Klonopin) 0.5 mg PO BID PRN; Protocol PRN Reason: Agitation Stop: 01/03/19 16:25 Dextrose (D50w) 50 ml IVP PRN PRN PRN Reason: Blood Glucose less than 70 Stop: 01/06/19 14:14 Dextrose (Glutose 40%) 18.75 gm PO PRN PRN PRN Reason: Blood Glucose less than 70 Stop: 01/06/19 14:14 Diphenhydramine HCl (Benadryl 50 Mg/Ml) 25 mg IVP Q8H PRN PRN Reason: Itching Stop: 01/10/19 02:17 Last Admin: 11/11/18 02:46 Dose: 25 mg Docusate Sodium (Colace) 100 mg PO BID [facility] Stop: 01/03/19 16:59 Last Admin: 11/11/18 10:35 Dose: Not Given Ferrous Sulfate (Iron) 325 mg PO DAILY [facility] Stop: 01/04/19 08:59 Last Admin: 11/11/18 10:36 Dose: Not Given Glucagon (Glucagen) 1 mg IM PRN PRN PRN Reason: Blood Glucose less than 70 Stop: 01/06/19 14:14 Haloperidol (Haldol) 5 mg PO BID [facility]; Protocol Stop: 01/03/19 16:59 Last Admin: 11/11/18 10:35 Dose: Not Given Haloperidol Lactate (Haldol) 2 mg IM Q6HR PRN PRN Reason: Agitation Stop: 01/03/19 16:25 Last Admin: 11/10/18 15:27 Dose: 2 mg Haloperidol Lactate (Haldol) 2 mg IM BID [facility] Stop: 01/05/19 16:59 Last Admin: 11/11/18 09:49 Dose: 2 mg Heparin Sodium (Porcine) (Heparin) 5,000 units SUBQ Q12HR [facility] Stop: 01/03/19 20:59 Last Admin: 11/11/18 09:50 Dose: 5,000 units Hydroxyzine HCl (Atarax) 10 mg GT TID PRN; Protocol PRN Reason: PRURITUS Stop: 01/03/19 16:25 Valproate Sodium 500 mg/ (Sodium Chloride) 105 mls @ 100 mls/hr IV Q12HR [facility] Stop: 01/04/19 10:59 Last Admin: 11/11/18 09:14 Dose: 100 mls/hr Sodium Chloride (Nacl 0.9%) 250 mls @ 10 mls/hr IV Q24H [facility] Stop: 01/07/19 08:44 Last Admin: 11/10/18 14:57 Dose: 10 mls/hr Multivitamins/Minerals 10 ml/Chromium/Copper/Manganese/Zinc 1 ml/ Amino Acids 2 ,171 mls @ 90 mls/hr IV .Q24H [facility] Stop: 12/05/18 15:59 Last Admin: 11/10/18 15:59 Dose: 90 mls/hr Insulin Human Lispro (Humalog Insulin Sliding Scale) 0 units SUBQ Q6HR [facility]; Protocol Stop: 01/06/19 17:59 Last Admin: 11/11/18 05:27 Dose: Not Given Lactobacillus Rhamnosus (Culturelle 15b) 1 each GT DAILY [facility] Stop: 01/04/19 08:59 Last Admin: 11/11/18 10:36 Dose: Not Given Lactulose (Cephulac) 30 gm PO Q6HR [facility] Stop: 01/03/19 17:59 Last Admin: 11/11/18 05:18 Dose: Not Given Lorazepam (Ativan) 1 mg PO TID [facility]; Protocol Stop: 01/03/19 20:59 Last Admin: 11/11/18 10:36 Dose: Not Given Lorazepam (Ativan) 0.5 mg GT Q6H PRN; Protocol PRN Reason: Anxiety Stop: 01/03/19 16:25 Lorazepam (Ativan) 1 mg IVP Q6H PRN; Protocol PRN Reason: Agitation Stop: 01/04/19 11:20 Last Admin: 11/11/18 08:49 Dose: 1 mg Magnesium Hydroxide (Milk Of Magnesia) 30 ml GT HS PRN PRN Reason: Constipation Stop: 01/03/19 16:25 Midodrine (Proamatine) 5 mg PO TID [facility] Stop: 01/03/19 20:59 Last Admin: 11/11/18 10:37 Dose: Not Given Miscellaneous (Ppn Per Pharmacy) 1 ea MC PRN PRN PRN Reason: PROTOCOL Stop: 01/06/19 11:27 Morphine Sulfate (Morphine) 2 mg IVP Q4HR PRN PRN Reason: Severe Pain Stop: 01/03/19 16:25 Morphine Sulfate (Morphine) 1 mg IVP Q4HR PRN PRN Reason: moderate pain Stop: 01/03/19 16:25 Last Admin: 11/08/18 09:53 Dose: 1 mg Pantoprazole Sodium (Protonix) 40 mg IVP DAILY [facility] Stop: 01/04/19 10:14 Last Admin: 11/11/18 08:48 Dose: 40 mg Pioglitazone HCl (Actos) 15 mg PO DAILY [facility] Stop: 01/04/19 08:59 Last Admin: 11/11/18 10:37 Dose: Not Given Quetiapine Fumarate (Seroquel) 50 mg PO BID [facility]; Protocol Stop: 01/03/19 16:59 Last Admin: 11/11/18 10:36 Dose: Not Given Sodium Phosphate (Fleet Enema) 135 ml RC Q48H PRN PRN Reason: IF DULCOLAX INEFFECTIVE Stop: 01/03/19 16:25 Temazepam (Restoril) 15 mg PO HS PRN; Protocol PRN Reason: IF AMBIEN INEFFECTIVE Stop: 01/03/19 17:07 Tobramycin/Dexamethasone (Tobradex 0.1%-0.3% Ophth Susp 2.5ml) 1 drop RIGHT EYE TID [facility] Stop: 01/03/19 20:59 Last Admin: 11/11/18 10:39 Dose: 1 drop Zolpidem Tartrate (Ambien) 5 mg GT HS [facility] Stop: 01/03/19 20:59 Last Admin: 11/10/18 20:27 Dose: Not Given General: lethargic, other (Irritable) HEENT: NC/AT, PERRLA Neck: Supple, No JVD Cardiovascular: Normal S1, Normal S2 Abdomen: soft, non-distended Extremities: other (Right upper paralysis.) Neurological: no change, disorganized - Procedures Procedures: Procedures Procedure Code Date ASSISTANCE WITH RESPIRATORY VENTILATION, <24 HRS, CPAP [id number] 06/01/18 REMOVAL OF FEEDING DEVICE FROM STOMACH, EXTERNAL APPROACH [id number] 06/21/18 Internal Medicine Assmt/Plan - Assessment Assessment: Irritable mood Agitated Confused Aspiration Right upper extremity paralysis Htn Asthma Copd Dyslipidemia Schizophrenia Bipolar Disorder Dysphagia Moderate Protein- Calorie Malnutrition - Plan Plan: Continue to Monitor patient closely Monitor vitals, Continue Bp meds as directed Continue present meds as directed Continue IV fluids for Hydration Followup with GI for possible PEG Monitor diet/nutritional support Aspiration precaution Followup with Dr. Mcleod for Psych Management Fall precaution Continue present care management Nutritional Asmnt/Malnutr-PDOC - Dietary Evaluation Malnutrition Findings (Please click <Entered> for more info): Nutritional Asmnt/Malnutrition Start: 11/08/18 15: 37 Text: Status: Complete Freq: Protocol: Document 11/08/18 15:37 LCHENG (Rec: 11/08/18 16:03 LCHENG [id number]) Nutritional Asmnt/Malnutrition Patient General Information Nutritional Screening Moderate Risk Diagnosis dysphagia Pertinent Medical Hx/Surgical Hx right upper extremity paralysis, HTN, asthma, COPD, dyslipidemia, schizophrenia, bipolar disorder Subjective Information Pt seen in lasha-chair, confused with unclear speech, has 1:1 sitter. Per nurse note , pt failed swallow eval on and ST recommended NPO with alternative nutrition route. Waiting for PEG consent. Pt is now on PPN. Current Diet Order/ Nutrition Support Dex 8%, AA 4% at 90ml/hr, providing 933kcal, 86g protein Pertinent Medications vit C, colace, iron, humalog, culturelle, seroquel, nacl 0.9 % Pertinent Labs 11/08 BUN 4, Cr 0.5, glucose 128, POC 100-112, Ca 8.4, Mg 1 .6, Alb 3.3 Nutritional Hx/Data Height 1.65 m Height (Calculated Centimeters) 165.1 Current Weight (lbs) 77.564 kg Weight (Calculated Kilograms) 77.6 Weight (Calculated Grams) 73589.3 [place] Body Weight 136 Body Mass Index (BMI) 28.4 Weight Status Overweight GI Symptoms GI Symptoms None Last BM 11/05 Difficult in: None Skin Integrity/Comment: bruise to posterior head Current %PO Negligible < 25% Estimated Nutritional Goals BEE in Kcals: Using Current wt Calories/Kcals/Kg 23-27 Kcals Calculated 8664-2115 Protein: Using Current wt Protein g/k Protein Calculated 78 Fluid: ml 1794-2106ml (1ml/kcal) Nutritional Problem 2. Problem Problem altered nutrition labs Etiology electrolytes imbalance Signs/Symptoms: mg 1.6, Ca 8.4 1. Problem Problem altered GI function Etiology pt failed swallow eval Signs/Symptoms: pt on PPN and need for PEG Malnutrition Alert Is there a minimum of two criteria No selected? Query Text:Check all the applicable criteria. A minimum of two criteria are recommended for diagnosis of either severe or non-severe malnutrition. Malnutrition Related to Morbid Obesity Malnutrition related to morbid obesity No Intervention/Recommendation Comments 1. Recommend PPN to meet 1794kcal and 78g protein. Recomendation sent to pharmacy . 2. Initiat TF after PEG placement. 3. Monitor PO intake, wt, labs and skin integrity 4. F/U as high risk in 2-3 days Expected Outcomes/Goals Expected Outcomes/Goals 1. Pt to meet at least 90% of nutritional needs via nutrition support with tolerance 2. Wt stability, skin to remain intact, labs to approach WNL.
[2018-11-11] MEDS: TPN 8.5%-70% CUSTOM IV SCH (17:04)
--- NOTE | 2018-11-11 18:38 | GI Progress Note ---
Subjective - Review of Systems Service Date: 11/11/18 Events since last encounter: No events Objective - Results Result Diagrams: 11/11/18 05:45 11/11/18 05:45 Recent Labs: Laboratory Last Values WBC 12.3 Th/cmm (4.8-10.8) H 11/11/18 05:45 RBC 5.02 Mil/cmm (4.30-5.70) 11/11/18 05:45 Hgb 14.3 gm/dL (12-16) 11/11/18 05:45 Hct 44.1 % (41.0-60) 11/11/18 05:45 MCV 87.8 fl (80-99) 11/11/18 05:45 MCH 28.4 pg (26.0-30.0) 11/11/18 05:45 MCHC Differential 32.3 pg (28.0-36.0) 11/11/18 05:45 RDW 15.4 % (11.5-20.0) 11/11/18 05:45 Plt Count 375 Th/cmm (150-400) 11/11/18 05:45 MPV 8.0 fl 11/11/18 05:45 Add Manual Diff YES 11/05/18 05:15 Neutrophils % 71.6 % (40.0-80.0) 11/11/18 05:45 Band Neutrophils % 1 % (0-10) 11/05/18 05:15 Lymphocytes % 14.9 % (20.0-50.0) L 11/11/18 05:45 Monocytes % 9.3 % (2.0-10.0) 11/11/18 05:45 Eosinophils % 3.5 % (0.0-5.0) 11/11/18 05:45 Basophils % 0.7 % (0.0-2.0) 11/11/18 05:45 Neutrophils (Manual) 85 % (40-80) H 11/05/18 05:15 Lymphocytes 6 % (20-50) L 11/05/18 05:15 Monocytes 8 % (2-10) 11/05/18 05:15 Eosinophils 0 % (0-5) 11/05/18 05:15 Basophils 0 % (0-3) 11/05/18 05:15 PT 9.8 SECONDS (9.5-11.5) 11/07/18 05:55 INR 0.95 (0.5-1.4) 11/07/18 05:55 Sodium 137 mEq/L (136-145) 11/11/18 05:45 Potassium 4.4 mEq/L (3.5-5.1) 11/11/18 05:45 Chloride 102 mEq/L (98-107) 11/11/18 05:45 Carbon Dioxide 26.6 mEq/L (21.0-31.0) 11/11/18 05:45 Anion Gap 12.8 (7.0-16.0) 11/11/18 05:45 BUN 14 mg/dL (7-25) 11/11/18 05:45 Creatinine 0.6 mg/dL (0.7-1.3) L 11/11/18 05:45 Est GFR ( Amer) > 60.0 ml/min (>90) 11/11/18 05:45 Est GFR (Non-Af Amer) > 60.0 ml/min 11/11/18 05:45 BUN/Creatinine Ratio 23.3 11/11/18 05:45 Glucose 94 mg/dL (70-105) 11/11/18 05:45 POC Glucose 92 MG/DL (70 - 105) 11/11/18 13:11 Calcium 9.5 mg/dL (8.6-10.3) 11/11/18 05:45 Phosphorus 3.6 mg/dL (2.5-5.0) 11/11/18 05:45 Magnesium 2.0 mg/dL (1.9-2.7) 11/11/18 05:45 Total Bilirubin 0.4 mg/dL (0.3-1.0) 11/11/18 05:45 AST 27 U/L (13-39) 11/11/18 05:45 ALT 25 U/L (7-52) 11/11/18 05:45 Alkaline Phosphatase 90 U/L (34-104) 11/11/18 05:45 Total Protein 7.2 gm/dL (6.0-8.3) 11/11/18 05:45 Albumin 3.9 gm/dL (4.2-5.5) L 11/11/18 05:45 Globulin 3.3 gm/dL 11/11/18 05:45 Albumin/Globulin Ratio 1.2 (1.0-1.8) 11/11/18 05:45 Prealbumin 12 mg/dL (10-36) 11/09/18 05:10 Triglycerides 111 mg/dL (<150) 11/09/18 05:10 - Physical Exam Vitals and I&O: Vital Signs Temp 98.2 F 11/11/18 16:00 Pulse 89 11/11/18 16:00 Resp 20 11/11/18 16:00 BP 136/70 11/11/18 16:00 Pulse Ox 94 11/11/18 16:00 Intake & Output 11/10/18 11/11/18 11/11/18 18:59 06:59 18:59 Intake Total 2423.667 105 Output Total 1525 Balance 898.667 105 Weight (lbs) 63.231 kg 63.231 kg 63.231 kg Intake: Intake, IV Amount 2423.667 105 Multivitamin Inj 10 ml 2171 Trace Element 1 ml In Amino Acids 4.25% /Dext 10% 2,160 ml @ 90 mls/hr IV .Q24H [facility] Rx#: [id number] Sodium Chloride 0.9% 250 147.667 ml @ 10 mls/hr IV Q24H [facility] Rx#:[id number] Valproate Sodium 500 mg 105 105 In Sodium Chloride 0.9% 100 ml @ 100 mls/hr IV Q12HR [facility] Rx#:[id number] Oral 0 Output: Urine 1525 Other: # Voids 3 # Bowel Movements 0 0 Weight Source Bedscale Bedscale Bedscale Active Medications: Current Medications Acetaminophen (Tylenol) 650 mg PO Q6HR PRN PRN Reason: Mild Pain or Fever >101 Stop: 01/03/19 16:25 Acetaminophen (Tylenol Extra Strength) 1,000 mg PO Q8HR PRN PRN Reason: Pain (Moderate) Stop: 01/03/19 16:25 Albuterol/Ipratropium (Duoneb Neb) 3 ml HHN Q6HR PRN PRN Reason: Shortness of Breath or Wheeze Stop: 01/03/19 16:25 Ascorbic Acid (Vitamin C) 500 mg PO DAILY [facility] Stop: 01/04/19 08:59 Last Admin: 11/11/18 10:36 Dose: Not Given Aspirin (Aspirin Chewable) 81 mg PO DAILY [facility] Stop: 01/04/19 08:59 Last Admin: 11/11/18 10:36 Dose: Not Given Bisacodyl (Dulcolax 10 Mg Supp) 10 mg RC DAILY PRN PRN Reason: Constipation Stop: 01/03/19 16:25 Clonazepam (Klonopin) 0.5 mg PO BID PRN; Protocol PRN Reason: Agitation Stop: 01/03/19 16:25 Dextrose (D50w) 50 ml IVP PRN PRN PRN Reason: Blood Glucose less than 70 Stop: 01/06/19 14:14 Dextrose (Glutose 40%) 18.75 gm PO PRN PRN PRN Reason: Blood Glucose less than 70 Stop: 01/06/19 14:14 Diphenhydramine HCl (Benadryl 50 Mg/Ml) 25 mg IVP Q8H PRN PRN Reason: Itching Stop: 01/10/19 02:17 Last Admin: 11/11/18 02:46 Dose: 25 mg Docusate Sodium (Colace) 100 mg PO BID [facility] Stop: 01/03/19 16:59 Last Admin: 11/11/18 10:35 Dose: Not Given Ferrous Sulfate (Iron) 325 mg PO DAILY [facility] Stop: 01/04/19 08:59 Last Admin: 11/11/18 10:36 Dose: Not Given Glucagon (Glucagen) 1 mg IM PRN PRN PRN Reason: Blood Glucose less than 70 Stop: 01/06/19 14:14 Haloperidol (Haldol) 5 mg PO BID [facility]; Protocol Stop: 01/03/19 16:59 Last Admin: 11/11/18 10:35 Dose: Not Given Haloperidol Lactate (Haldol) 2 mg IM Q6HR PRN PRN Reason: Agitation Stop: 01/03/19 16:25 Last Admin: 11/10/18 15:27 Dose: 2 mg Haloperidol Lactate (Haldol) 2 mg IM BID [facility] Stop: 01/05/19 16:59 Last Admin: 11/11/18 16:15 Dose: 2 mg Heparin Sodium (Porcine) (Heparin) 5,000 units SUBQ Q12HR [facility] Stop: 01/03/19 20:59 Last Admin: 11/11/18 09:50 Dose: 5,000 units Hydroxyzine HCl (Atarax) 10 mg GT TID PRN; Protocol PRN Reason: PRURITUS Stop: 01/03/19 16:25 Valproate Sodium 500 mg/ (Sodium Chloride) 105 mls @ 100 mls/hr IV Q12HR [facility] Stop: 01/04/19 10:59 Last Admin: 11/11/18 09:14 Dose: 100 mls/hr Sodium Chloride (Nacl 0.9%) 250 mls @ 10 mls/hr IV Q24H [facility] Stop: 01/07/19 08:44 Last Admin: 11/10/18 14:57 Dose: 10 mls/hr Multivitamins/Minerals 10 ml/Chromium/Copper/Manganese/Zinc 1 ml/ Sodium Chloride 156 meq / Sodium Phosphate 7 mmole/Magnesium Sulfate 23 meq/Potassium Acetate 34 meq/Calcium Gluconate 2.2 gm/Potassium Chloride 37 meq/Dextrose/ Amino Acids/Electrolytes/ Fat Emulsion Intravenous/ Sterile Water 2,160 mls @ 90 mls/hr IV .Q24H [facility] Stop: 12/10/18 15:59 Last Admin: 11/11/18 17:04 Dose: 90 mls/hr Insulin Human Lispro (Humalog Insulin Sliding Scale) 0 units SUBQ Q6HR [facility]; Protocol Stop: 01/06/19 17:59 Last Admin: 11/11/18 12:13 Dose: Not Given Lactobacillus Rhamnosus (Culturelle 15b) 1 each GT DAILY [facility] Stop: 01/04/19 08:59 Last Admin: 11/11/18 10:36 Dose: Not Given Lactulose (Cephulac) 30 gm PO Q6HR [facility] Stop: 01/03/19 17:59 Last Admin: 11/11/18 12:12 Dose: Not Given Lorazepam (Ativan) 1 mg PO TID [facility]; Protocol Stop: 01/03/19 20:59 Last Admin: 11/11/18 14:13 Dose: Not Given Lorazepam (Ativan) 0.5 mg GT Q6H PRN; Protocol PRN Reason: Anxiety Stop: 01/03/19 16:25 Lorazepam (Ativan) 1 mg IVP Q6H PRN; Protocol PRN Reason: Agitation Stop: 01/04/19 11:20 Last Admin: 11/11/18 08:49 Dose: 1 mg Magnesium Hydroxide (Milk Of Magnesia) 30 ml GT HS PRN PRN Reason: Constipation Stop: 01/03/19 16:25 Midodrine (Proamatine) 5 mg PO TID [facility] Stop: 01/03/19 20:59 Last Admin: 11/11/18 10:37 Dose: Not Given Miscellaneous (Ppn Per Pharmacy) 1 ea MC PRN PRN PRN Reason: PROTOCOL Stop: 01/06/19 11:27 Morphine Sulfate (Morphine) 2 mg IVP Q4HR PRN PRN Reason: Severe Pain Stop: 01/03/19 16:25 Morphine Sulfate (Morphine) 1 mg IVP Q4HR PRN PRN Reason: moderate pain Stop: 01/03/19 16:25 Last Admin: 11/08/18 09:53 Dose: 1 mg Pantoprazole Sodium (Protonix) 40 mg IVP DAILY [facility] Stop: 01/04/19 10:14 Last Admin: 11/11/18 08:48 Dose: 40 mg Pioglitazone HCl (Actos) 15 mg PO DAILY [facility] Stop: 01/04/19 08:59 Last Admin: 11/11/18 10:37 Dose: Not Given Quetiapine Fumarate (Seroquel) 50 mg PO BID [facility]; Protocol Stop: 01/03/19 16:59 Last Admin: 11/11/18 10:36 Dose: Not Given Sodium Phosphate (Fleet Enema) 135 ml RC Q48H PRN PRN Reason: IF DULCOLAX INEFFECTIVE Stop: 01/03/19 16:25 Temazepam (Restoril) 15 mg PO HS PRN; Protocol PRN Reason: IF AMBIEN INEFFECTIVE Stop: 01/03/19 17:07 Tobramycin/Dexamethasone (Tobradex 0.1%-0.3% Ophth Susp 2.5ml) 1 drop RIGHT EYE TID [facility] Stop: 01/03/19 20:59 Last Admin: 11/11/18 14:15 Dose: 1 drop Zolpidem Tartrate (Ambien) 5 mg GT HS [facility] Stop: 01/03/19 20:59 Last Admin: 11/10/18 20:27 Dose: Not Given General: No acute distress HEENT: PERRLA, EOMI Neck: Supple Cardiovascular: Regular rate Lungs: Clear to auscultation Abdomen: Bowel sounds, Soft Neurological: Normal tone - Procedures Procedures: Procedures Procedure Code Date ASSISTANCE WITH RESPIRATORY VENTILATION, <24 HRS, CPAP [id number] 06/01/18 REMOVAL OF FEEDING DEVICE FROM STOMACH, EXTERNAL APPROACH [id number] 06/21/18 Assessment/Plan - Assessment Assessment: 1. Oropharyngeal Dysphagia 2. Significant aspiration 3. Protein calorie malnutrition -awaiting consent for egd with PEG tube placement -medically necessary for patient to have PEG -awaiting for proper conservator consent, I left another message yesterday
[2018-11-11] MEDS: Haloperidol Lactate 5 mg/mL 1mL Vial IM PRN (23:01)
--- NOTE | 2018-11-12 01:09 | Progress Notes ---
DATE: 11/11/[address] Carrion. Case was discussed with staff of the patient, reviewed records. The patient is a 58-year-old male who was on the Med-Surg Unit because he has been aggressive, pulling his IVs. He is psychotic, unpredictable and impulsive. He is on Klonopin 0.5 twice a day as needed and Haldol 5 mg twice a day given as needed. Continues to be unpredictable and impulsive. Currently, when I tried talk to him today, he was calmer, not as agitated and he can get Haldol and Ativan if continues to show agitation as he was pulling his IV, getting aggressive. Thank you very much for allowing me to participate in the care of this most interesting gentleman. JOB# [id number]
[2018-11-12] MEDS: Lactulose 10 Gm/15 mL 30mL UDC PO SCH ×4 (05:10→18:04)
[2018-11-12] MEDS: INSULIN LISPRO SLIDING SCALE 100 UNITS/ML UNIT SUBQ SCH ×4 (05:10→18:04)
[2018-11-12 07:10] LABS: INR 0.97 (0.5-1.4); PROTHROMBIN TIME (TEST) 10.1 SECONDS (9.5-11.5)
[2018-11-12 07:21] LABS: ANION GAP 12.6 (7.0-16.0); BUN - UREA NITROGEN 18 mg/dL (7-25); CALCIUM SERUM 9.2 mg/dL (8.6-10.3); CARBON DIOXIDE 27.9 mEq/L (21.0-31.0); CHLORIDE 100 mEq/L (98-107); CHOLESTEROL 121 mg/dL (<200); CREATININE - SERUM 0.7 mg/dL (0.7-1.3); GFR AFRICAN-AMERICAN > 60.0 ml/min (>90); GFR NON AFRICAN-AMERICAN > 60.0 ml/min; GLUCOSE 102 mg/dL (70-105); MAGNESIUM 2.1 mg/dL (1.9-2.7); PHOSPHOROUS 3.9 mg/dL (2.5-5.0); POTASSIUM SERUM 4.5 mEq/L (3.5-5.1); SODIUM SERUM 136 mEq/L (136-145)
[2018-11-12] MEDS: Valproate Sodium 500 MG in Sodium Chloride 0.9% 100 ML IV SCH ×2 (08:10→22:02)
[2018-11-12] MEDS: Haloperidol Lactate 5 mg/mL 1mL Vial IM SCH ×2 (08:11→17:37)
[2018-11-12] MEDS: Aspirin 81mg Chewable Tab PO SCH (08:13)
[2018-11-12] MEDS: Lactobacillus Rhamnosus GG 15 Billion CFU CAP.SPRINK GT SCH (08:13)
[2018-11-12] MEDS: Ferrous Sulfate 325 MG TAB PO SCH (08:13)
[2018-11-12] MEDS: Sodium Chloride 0.9% 250 ML IV SCH (08:15)
[2018-11-12] MEDS ORDERED: Morphine Sulfate 2 mg/mL 1mL Syr IVP PRN ×2 (10:47→10:49)
[2018-11-12] MEDS ORDERED: Dexamethasone/Tobramycin Ophth Susp 2.5 mL Bottle RIGHT EYE SCH (14:00)
[2018-11-12] MEDS: TPN 8.5%-70% CUSTOM IV SCH (17:38)
[2018-11-12 20:06] LABS: PHOSPHORUS URINE <3.4 mg/dL (Not Estab.)
--- NOTE | 2018-11-12 20:14 | Progress Notes ---
DATE: 11/12/2018 Case was discussed with staff of the patient, reviewed records. The patient had mittens on as he continued to try to pull his IV. He is supposed to be going to surgery today. He continues to have poor insight, unpredictable and impulsive, needing redirection. No side effects with the medication, no sedation or nausea. He is on Haldol. Thank you very much for allowing me to participate in the care of this most interesting gentleman. JOB# [id number]
--- NOTE | 2018-11-12 21:21 | Internal Medicine Prog Note ---
Internal Medicine Subjective - Subjective Service Date: 11/12/18 Patient is:: awake, verbal, agitated, confused, other (continues to be aggressive.) Patient Complaints of:: other (Dysphagia.) Per staff patient has:: no adverse event, no episodes of fall, poor oral intake , agitated, confused Internal Medicine Objective - Results Result Diagrams: 11/11/18 05:45 11/12/18 05:45 Recent Labs: Laboratory Last Values WBC 12.3 Th/cmm (4.8-10.8) H 11/11/18 05:45 RBC 5.02 Mil/cmm (4.30-5.70) 11/11/18 05:45 Hgb 14.3 gm/dL (12-16) 11/11/18 05:45 Hct 44.1 % (41.0-60) 11/11/18 05:45 MCV 87.8 fl (80-99) 11/11/18 05:45 MCH 28.4 pg (26.0-30.0) 11/11/18 05:45 MCHC Differential 32.3 pg (28.0-36.0) 11/11/18 05:45 RDW 15.4 % (11.5-20.0) 11/11/18 05:45 Plt Count 375 Th/cmm (150-400) 11/11/18 05:45 MPV 8.0 fl 11/11/18 05:45 Add Manual Diff YES 11/05/18 05:15 Neutrophils % 71.6 % (40.0-80.0) 11/11/18 05:45 Band Neutrophils % 1 % (0-10) 11/05/18 05:15 Lymphocytes % 14.9 % (20.0-50.0) L 11/11/18 05:45 Monocytes % 9.3 % (2.0-10.0) 11/11/18 05:45 Eosinophils % 3.5 % (0.0-5.0) 11/11/18 05:45 Basophils % 0.7 % (0.0-2.0) 11/11/18 05:45 Neutrophils (Manual) 85 % (40-80) H 11/05/18 05:15 Lymphocytes 6 % (20-50) L 11/05/18 05:15 Monocytes 8 % (2-10) 11/05/18 05:15 Eosinophils 0 % (0-5) 11/05/18 05:15 Basophils 0 % (0-3) 11/05/18 05:15 PT 10.1 SECONDS (9.5-11.5) 11/12/18 05:45 INR 0.97 (0.5-1.4) 11/12/18 05:45 Sodium 136 mEq/L (136-145) 11/12/18 05:45 Potassium 4.5 mEq/L (3.5-5.1) 11/12/18 05:45 Chloride 100 mEq/L (98-107) 11/12/18 05:45 Carbon Dioxide 27.9 mEq/L (21.0-31.0) 11/12/18 05:45 Anion Gap 12.6 (7.0-16.0) 11/12/18 05:45 BUN 18 mg/dL (7-25) 11/12/18 05:45 Creatinine 0.7 mg/dL (0.7-1.3) 11/12/18 05:45 Est GFR ( Amer) > 60.0 ml/min (>90) 11/12/18 05:45 Est GFR (Non-Af Amer) > 60.0 ml/min 11/12/18 05:45 BUN/Creatinine Ratio 25.7 11/12/18 05:45 Glucose 102 mg/dL (70-105) 11/12/18 05:45 POC Glucose 123 MG/DL (70 - 105) H 11/12/18 17:27 Calcium 9.2 mg/dL (8.6-10.3) 11/12/18 05:45 Phosphorus 3.9 mg/dL (2.5-5.0) 11/12/18 05:45 Magnesium 2.1 mg/dL (1.9-2.7) 11/12/18 05:45 Total Bilirubin 0.4 mg/dL (0.3-1.0) 11/11/18 05:45 AST 27 U/L (13-39) 11/11/18 05:45 ALT 25 U/L (7-52) 11/11/18 05:45 Alkaline Phosphatase 90 U/L (34-104) 11/11/18 05:45 Total Protein 7.2 gm/dL (6.0-8.3) 11/11/18 05:45 Albumin 3.9 gm/dL (4.2-5.5) L 11/11/18 05:45 Globulin 3.3 gm/dL 11/11/18 05:45 Albumin/Globulin Ratio 1.2 (1.0-1.8) 11/11/18 05:45 Prealbumin 12 mg/dL (10-36) 11/09/18 05:10 Triglycerides 111 mg/dL (<150) 11/09/18 05:10 Cholesterol 121 mg/dL (<200) 11/12/18 05:45 Urine Phosphorus <3.4 mg/dL (Not Estab.) 11/09/18 19:48 Ur Phosphorus 24 Hr mg/24 hr (400.0-1300.0) 11/09/18 19:48 - Physical Exam Vitals and I&O: Vital Signs Temp 98.1 F 11/12/18 16:00 Pulse 93 11/12/18 16:00 Resp 20 11/12/18 16:00 BP 118/75 11/12/18 16:00 Pulse Ox 95 11/12/18 16:00 Intake & Output 11/12/18 11/12/18 11/13/18 06:59 18:59 06:59 Intake Total 105 2160 Balance 105 2160 Weight (lbs) 63.231 kg 63.049 kg Intake: Intake, IV Amount 105 2160 Multivitamin Inj 10 ml 2160 Trace Element 1 ml Sodium Chloride 156 meq Sodium Phosphate 7 mmole Magnesium Sulfate 23 meq Potassium Acetate 34 meq Calcium Gluconate 2.2 gm Potassium Chloride 37 meq In Dextrose 70% 214.5017 ml In Amino Acids 8.5% 500 ml In Intralipids 20% 150 ml In Water, Sterile 1,180 ml @ 90 mls/hr IV .Q24H [facility] Rx#:[id number] Valproate Sodium 500 mg 105 In Sodium Chloride 0.9% 100 ml @ 100 mls/hr IV Q12HR [facility] Rx#:[id number] Other: # Voids 3 # Bowel Movements 0 0 Weight Source Bedscale Bedscale Active Medications: Current Medications Acetaminophen (Tylenol) 650 mg PO Q6HR PRN PRN Reason: Mild Pain or Fever >101 Stop: 01/03/19 16:25 Acetaminophen (Tylenol Extra Strength) 1,000 mg PO Q8HR PRN PRN Reason: Pain (Moderate) Stop: 01/03/19 16:25 Albuterol/Ipratropium (Duoneb Neb) 3 ml HHN Q6HR PRN PRN Reason: Shortness of Breath or Wheeze Stop: 01/03/19 16:25 Last Admin: 11/12/18 15:25 Dose: 3 ml Ascorbic Acid (Vitamin C) 500 mg PO DAILY [facility] Stop: 01/04/19 08:59 Last Admin: 11/12/18 08:13 Dose: Not Given Aspirin (Aspirin Chewable) 81 mg PO DAILY [facility] Stop: 01/04/19 08:59 Last Admin: 11/12/18 08:13 Dose: Not Given Bisacodyl (Dulcolax 10 Mg Supp) 10 mg RC DAILY PRN PRN Reason: Constipation Stop: 01/03/19 16:25 Clonazepam (Klonopin) 0.5 mg PO BID PRN; Protocol PRN Reason: Agitation Stop: 01/11/19 16:59 Dextrose (D50w) 50 ml IVP PRN PRN PRN Reason: Blood Glucose less than 70 Stop: 01/06/19 14:14 Dextrose (Glutose 40%) 18.75 gm PO PRN PRN PRN Reason: Blood Glucose less than 70 Stop: 01/06/19 14:14 Diphenhydramine HCl (Benadryl 50 Mg/Ml) 25 mg IVP Q8H PRN PRN Reason: Itching Stop: 01/10/19 02:17 Last Admin: 11/11/18 02:46 Dose: 25 mg Docusate Sodium (Colace) 100 mg PO BID [facility] Stop: 01/03/19 16:59 Last Admin: 11/12/18 18:04 Dose: Not Given Ferrous Sulfate (Iron) 325 mg PO DAILY [facility] Stop: 01/04/19 08:59 Last Admin: 11/12/18 08:13 Dose: Not Given Glucagon (Glucagen) 1 mg IM PRN PRN PRN Reason: Blood Glucose less than 70 Stop: 01/06/19 14:14 Haloperidol (Haldol) 5 mg PO BID [facility]; Protocol Stop: 01/03/19 16:59 Last Admin: 11/12/18 18:04 Dose: Not Given Haloperidol Lactate (Haldol) 2 mg IM Q6HR PRN PRN Reason: Agitation Stop: 01/03/19 16:25 Last Admin: 11/11/18 23:01 Dose: 2 mg Haloperidol Lactate (Haldol) 2 mg IM BID [facility] Stop: 01/05/19 16:59 Last Admin: 11/12/18 17:37 Dose: 2 mg Heparin Sodium (Porcine) (Heparin) 5,000 units SUBQ Q12HR [facility] Stop: 01/11/19 20:59 Hydroxyzine HCl (Atarax) 10 mg GT TID PRN; Protocol PRN Reason: PRURITUS Stop: 01/03/19 16:25 Valproate Sodium 500 mg/ (Sodium Chloride) 105 mls @ 100 mls/hr IV Q12HR [facility] Stop: 01/04/19 10:59 Last Admin: 11/12/18 08:10 Dose: 100 mls/hr Sodium Chloride (Nacl 0.9%) 250 mls @ 10 mls/hr IV Q24H [facility] Stop: 01/07/19 08:44 Last Admin: 11/12/18 08:15 Dose: 10 mls/hr Multivitamins/Minerals 10 ml/Chromium/Copper/Manganese/Zinc 1 ml/ Sodium Chloride 156 meq / Sodium Phosphate 7 mmole/Magnesium Sulfate 23 meq/Potassium Acetate 34 meq/Calcium Gluconate 2.2 gm/Potassium Chloride 37 meq/Dextrose/ Amino Acids/Electrolytes/ Fat Emulsion Intravenous/ Sterile Water 2,160 mls @ 90 mls/hr IV .Q24H [facility] Stop: 12/10/18 15:59 Last Admin: 11/12/18 17:38 Dose: 90 mls/hr Insulin Human Lispro (Humalog Insulin Sliding Scale) 0 units SUBQ Q6HR [facility]; Protocol Stop: 01/06/19 17:59 Last Admin: 11/12/18 18:04 Dose: Not Given Lactobacillus Rhamnosus (Culturelle 15b) 1 each GT DAILY [facility] Stop: 01/04/19 08:59 Last Admin: 11/12/18 08:13 Dose: Not Given Lactulose (Cephulac) 30 gm PO Q6HR [facility] Stop: 01/03/19 17:59 Last Admin: 11/12/18 18:04 Dose: Not Given Lorazepam (Ativan) 1 mg IVP Q6H PRN; Protocol PRN Reason: Agitation Stop: 01/04/19 11:20 Last Admin: 11/11/18 20:13 Dose: 1 mg Lorazepam (Ativan) 0.5 mg GT Q6HR PRN; Protocol PRN Reason: Anxiety Stop: 01/11/19 10:41 Magnesium Hydroxide (Milk Of Magnesia) 30 ml GT HS PRN PRN Reason: Constipation Stop: 01/03/19 16:25 Midodrine (Proamatine) 5 mg PO TID [facility] Stop: 01/03/19 20:59 Last Admin: 11/12/18 13:12 Dose: Not Given Miscellaneous (Ppn Per Pharmacy) 1 ea MC PRN PRN PRN Reason: PROTOCOL Stop: 01/06/19 11:27 Morphine Sulfate (Morphine) 1 mg IVP Q4HR PRN PRN Reason: Pain (Moderate) Stop: 01/11/19 10:46 Morphine Sulfate (Morphine) 2 mg IVP Q4HR PRN PRN Reason: Pain (Severe) Stop: 01/11/19 10:48 Pantoprazole Sodium (Protonix) 40 mg IVP DAILY [facility] Stop: 01/04/19 10:14 Last Admin: 11/12/18 08:11 Dose: 40 mg Pioglitazone HCl (Actos) 15 mg PO DAILY [facility] Stop: 01/04/19 08:59 Last Admin: 11/12/18 08:13 Dose: Not Given Quetiapine Fumarate (Seroquel) 50 mg PO BID [facility]; Protocol Stop: 01/03/19 16:59 Last Admin: 11/12/18 18:04 Dose: Not Given Sodium Phosphate (Fleet Enema) 135 ml RC Q48H PRN PRN Reason: IF DULCOLAX INEFFECTIVE Stop: 01/03/19 16:25 Temazepam (Restoril) 15 mg PO HS PRN; Protocol PRN Reason: Insomnia Stop: 01/11/19 10:48 Zolpidem Tartrate (Ambien) 5 mg GT HS [facility] Stop: 01/11/19 20:59 General: lethargic, other (Irritable) HEENT: NC/AT, PERRLA Neck: Supple, No JVD Cardiovascular: Normal S1, Normal S2 Abdomen: soft, non-distended Extremities: other (Right upper paralysis.) Neurological: no change, disorganized - Procedures Procedures: Procedures Procedure Code Date ASSISTANCE WITH RESPIRATORY VENTILATION, <24 HRS, CPAP [id number] 06/01/18 REMOVAL OF FEEDING DEVICE FROM STOMACH, EXTERNAL APPROACH [id number] 06/21/18 Internal Medicine Assmt/Plan - Assessment Assessment: Irritable mood Agitated Confused Aspiration Right upper extremity paralysis Htn Asthma Copd Dyslipidemia Schizophrenia Bipolar Disorder Dysphagia Moderate Protein- Calorie Malnutrition - Plan Plan: Continue to Monitor patient closely Monitor vitals, Continue Bp meds as directed Continue present meds as directed Continue IV fluids for Hydration Followup with GI for possible PEG Monitor diet/nutritional support Aspiration precaution Followup with Dr. Mcleod for Psych Management Fall precaution Continue present care management Nutritional Asmnt/Malnutr-PDOC - Dietary Evaluation Malnutrition Findings (Please click <Entered> for more info): Nutritional Asmnt/Malnutrition Start: 11/08/18 15: 37 Text: Status: Complete Freq: Protocol: Document 11/08/18 15:37 LCHENG (Rec: 11/08/18 16:03 LCHENG [id number]) Nutritional Asmnt/Malnutrition Patient General Information Nutritional Screening Moderate Risk Diagnosis dysphagia Pertinent Medical Hx/Surgical Hx right upper extremity paralysis, HTN, asthma, COPD, dyslipidemia, schizophrenia, bipolar disorder Subjective Information Pt seen in lasha-chair, confused with unclear speech, has 1:1 sitter. Per nurse note , pt failed swallow eval on and ST recommended NPO with alternative nutrition route. Waiting for PEG consent. Pt is now on PPN. Current Diet Order/ Nutrition Support Dex 8%, AA 4% at 90ml/hr, providing 933kcal, 86g protein Pertinent Medications vit C, colace, iron, humalog, culturelle, seroquel, nacl 0.9 % Pertinent Labs 11/08 BUN 4, Cr 0.5, glucose 128, POC 100-112, Ca 8.4, Mg 1 .6, Alb 3.3 Nutritional Hx/Data Height 1.65 m Height (Calculated Centimeters) 165.1 Current Weight (lbs) 77.564 kg Weight (Calculated Kilograms) 77.6 Weight (Calculated Grams) 43149.3 [place] Body Weight 136 Body Mass Index (BMI) 28.4 Weight Status Overweight GI Symptoms GI Symptoms None Last BM 11/05 Difficult in: None Skin Integrity/Comment: bruise to posterior head Current %PO Negligible < 25% Estimated Nutritional Goals BEE in Kcals: Using Current wt Calories/Kcals/Kg 23-27 Kcals Calculated 2819-9442 Protein: Using Current wt Protein g/k Protein Calculated 78 Fluid: ml 1794-2106ml (1ml/kcal) Nutritional Problem 2. Problem Problem altered nutrition labs Etiology electrolytes imbalance Signs/Symptoms: mg 1.6, Ca 8.4 1. Problem Problem altered GI function Etiology pt failed swallow eval Signs/Symptoms: pt on PPN and need for PEG Malnutrition Alert Is there a minimum of two criteria No selected? Query Text:Check all the applicable criteria. A minimum of two criteria are recommended for diagnosis of either severe or non-severe malnutrition. Malnutrition Related to Morbid Obesity Malnutrition related to morbid obesity No Intervention/Recommendation Comments 1. Recommend PPN to meet 1794kcal and 78g protein. Recomendation sent to pharmacy . 2. Initiat TF after PEG placement. 3. Monitor PO intake, wt, labs and skin integrity 4. F/U as high risk in 2-3 days Expected Outcomes/Goals Expected Outcomes/Goals 1. Pt to meet at least 90% of nutritional needs via nutrition support with tolerance 2. Wt stability, skin to remain intact, labs to approach WNL.
[2018-11-13] MEDS: Lactulose 10 Gm/15 mL 30mL UDC PO SCH ×5 (01:28→23:26)
[2018-11-13] MEDS: INSULIN LISPRO SLIDING SCALE 100 UNITS/ML UNIT SUBQ SCH ×4 (01:36→17:10)
[2018-11-13 06:39] LABS: ANION GAP 13.3 (7.0-16.0); BUN - UREA NITROGEN 18 mg/dL (7-25); CALCIUM SERUM 9.4 mg/dL (8.6-10.3); CHLORIDE 102 mEq/L (98-107); CREATININE - SERUM 0.7 mg/dL (0.7-1.3); GFR AFRICAN-AMERICAN > 60.0 ml/min (>90); GFR NON AFRICAN-AMERICAN > 60.0 ml/min; GLUCOSE 120 mg/dL (70-105); POTASSIUM SERUM 4.3 mEq/L (3.5-5.1); SODIUM SERUM 136 mEq/L (136-145)
[2018-11-13] MEDS: Aspirin 81mg Chewable Tab PO SCH (09:12)
[2018-11-13] MEDS: Ferrous Sulfate 325 MG TAB PO SCH (09:12)
[2018-11-13] MEDS: Lactobacillus Rhamnosus GG 15 Billion CFU CAP.SPRINK GT SCH (09:13)
[2018-11-13] MEDS: Valproate Sodium 500 MG in Sodium Chloride 0.9% 100 ML IV SCH (09:22)
--- NOTE | 2018-11-13 12:26 | Operative Report ---
DATE OF SURGERY: 11/12/2018 PROCEDURES PERFORMED: 1. EGD with PEG tube placement. 2. EGD with biopsy. PREOPERATIVE DIAGNOSES: 1. Oropharyngeal dysphagia. 2. Psychiatric disease. POSTOPERATIVE DIAGNOSES: 1. Successful 20-[place]izen [place] G-tube placement. 2. Mild antral gastritis. INDICATIONS: This is a 58-year-old male with significant oropharyngeal dysphagia and psychiatric disease with advanced schizophrenia, who presents with inability to tolerate food and has failed his swallow evaluations as well as video fluoroscopy test. After proper informed consent was obtained, the patient was brought down to the operative suite at [facility] to have an EGD with PEG tube under anesthesia. SEDATION: Per anesthesia. CONSENT: Informed consent was obtained from the proper conservatorship after explaining the risks, benefits and alternatives to the procedure, which were understood and so stated. EGD: While the patient was in a supine position, a ____ GIF-H180 scope was introduced through the patient's mouth and advanced under direct visualization into the esophagus, into the stomach and up to the second and third portion of the duodenum. Here, the scope was withdrawn carefully examining the color, texture, and anatomy of the mucosa. The D1 and D2 portions appeared normal. The scope was then brought back to the gastric body where retroflexion was performed, which was normal. The scope was straightened forward and further attention was paid to the gastric antrum, which had the presence of mild antral gastritis. Biopsies were obtained and sent for H. pylori to rule this out. 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 After identifying a proper spot, we cleaned the site appropriately on the stomach side and anesthetized this with 10 mL of lidocaine and ensured that the tract was correct. Using a scalpel, I made a 5 mm incision and then through this, a single trocar was placed and through the trocar, we advanced a guidewire which was then snared by the endoscope within and then brought out the mouth. A 20-[place]izen [place] G-tube was then attached to the guidewire and pulled out the abdominal wall and secured at the 3.5 cm position. This was then confirmed with the endoscope, which showed appropriate placement. The stomach was then decompressed. The G-tube was then secured and the patient tolerated the procedure well. RECOMMENDATIONS: 1. Keep the patient n.p.o. for the next 4 hours including medications. 2. Okay for free water flushes every 4-6 hours with 50 mL. 3. Check gastric residuals every 6 hours and hold if greater than 100 mL. 4. Advance tube feeds per dietary recommendations. Thank you for allowing us to participate in this patient's care. JOB# [id number]
--- NOTE | 2018-11-13 13:45 | Internal Medicine Prog Note ---
Internal Medicine Subjective - Subjective Service Date: 11/13/18 Patient seen and examined:: chart reviewed Patient is:: awake, verbal, agitated, confused, other (continues to be aggressive and in irritated mood.) Patient Complaints of:: other (S/p PEG Placement.) Per staff patient has:: no adverse event, no episodes of fall, poor oral intake , agitated, confused Internal Medicine Objective - Results Result Diagrams: 11/11/18 05:45 11/13/18 05:50 Recent Labs: Laboratory Last Values WBC 12.3 Th/cmm (4.8-10.8) H 11/11/18 05:45 RBC 5.02 Mil/cmm (4.30-5.70) 11/11/18 05:45 Hgb 14.3 gm/dL (12-16) 11/11/18 05:45 Hct 44.1 % (41.0-60) 11/11/18 05:45 MCV 87.8 fl (80-99) 11/11/18 05:45 MCH 28.4 pg (26.0-30.0) 11/11/18 05:45 MCHC Differential 32.3 pg (28.0-36.0) 11/11/18 05:45 RDW 15.4 % (11.5-20.0) 11/11/18 05:45 Plt Count 375 Th/cmm (150-400) 11/11/18 05:45 MPV 8.0 fl 11/11/18 05:45 Add Manual Diff YES 11/05/18 05:15 Neutrophils % 71.6 % (40.0-80.0) 11/11/18 05:45 Band Neutrophils % 1 % (0-10) 11/05/18 05:15 Lymphocytes % 14.9 % (20.0-50.0) L 11/11/18 05:45 Monocytes % 9.3 % (2.0-10.0) 11/11/18 05:45 Eosinophils % 3.5 % (0.0-5.0) 11/11/18 05:45 Basophils % 0.7 % (0.0-2.0) 11/11/18 05:45 Neutrophils (Manual) 85 % (40-80) H 11/05/18 05:15 Lymphocytes 6 % (20-50) L 11/05/18 05:15 Monocytes 8 % (2-10) 11/05/18 05:15 Eosinophils 0 % (0-5) 11/05/18 05:15 Basophils 0 % (0-3) 11/05/18 05:15 PT 10.1 SECONDS (9.5-11.5) 11/12/18 05:45 INR 0.97 (0.5-1.4) 11/12/18 05:45 Sodium 136 mEq/L (136-145) 11/13/18 05:50 Potassium 4.3 mEq/L (3.5-5.1) 11/13/18 05:50 Chloride 102 mEq/L (98-107) 11/13/18 05:50 Carbon Dioxide 25.0 mEq/L (21.0-31.0) 11/13/18 05:50 Anion Gap 13.3 (7.0-16.0) 11/13/18 05:50 BUN 18 mg/dL (7-25) 11/13/18 05:50 Creatinine 0.7 mg/dL (0.7-1.3) 11/13/18 05:50 Est GFR ( Amer) > 60.0 ml/min (>90) 11/13/18 05:50 Est GFR (Non-Af Amer) > 60.0 ml/min 11/13/18 05:50 BUN/Creatinine Ratio 25.7 11/13/18 05:50 Glucose 120 mg/dL (70-105) H 11/13/18 05:50 POC Glucose 104 MG/DL (70 - 105) 11/13/18 11:42 Calcium 9.4 mg/dL (8.6-10.3) 11/13/18 05:50 Phosphorus 4.0 mg/dL (2.5-5.0) 11/13/18 05:50 Magnesium 2.0 mg/dL (1.9-2.7) 11/13/18 05:50 Total Bilirubin 0.4 mg/dL (0.3-1.0) 11/11/18 05:45 AST 27 U/L (13-39) 11/11/18 05:45 ALT 25 U/L (7-52) 11/11/18 05:45 Alkaline Phosphatase 90 U/L (34-104) 11/11/18 05:45 Total Protein 7.2 gm/dL (6.0-8.3) 11/11/18 05:45 Albumin 3.9 gm/dL (4.2-5.5) L 11/11/18 05:45 Globulin 3.3 gm/dL 11/11/18 05:45 Albumin/Globulin Ratio 1.2 (1.0-1.8) 11/11/18 05:45 Prealbumin 12 mg/dL (10-36) 11/09/18 05:10 Triglycerides 111 mg/dL (<150) 11/09/18 05:10 Cholesterol 121 mg/dL (<200) 11/12/18 05:45 Urine Phosphorus <3.4 mg/dL (Not Estab.) 11/09/18 19:48 Ur Phosphorus 24 Hr mg/24 hr (400.0-1300.0) 11/09/18 19:48 Valproic Acid 63.4 ug/mL (50.0-100.0) 11/13/18 05:50 Helicobacter pylori Ab NEGATIVE (NEGATIVE) 11/12/18 13:25 - Physical Exam Vitals and I&O: Vital Signs Temp 98.2 F 11/13/18 12:33 Pulse 92 11/13/18 12:33 Resp 18 11/13/18 12:33 BP 111/64 11/13/18 12:33 Pulse Ox 98 11/13/18 12:33 Intake & Output 11/12/18 11/13/18 11/13/18 18:59 06:59 18:59 Intake Total 2265 105 Balance 2265 105 Weight (lbs) 63.049 kg 63.049 kg Intake: Intake, IV Amount 2265 105 Multivitamin Inj 10 ml 2160 Trace Element 1 ml Sodium Chloride 156 meq Sodium Phosphate 7 mmole Magnesium Sulfate 23 meq Potassium Acetate 34 meq Calcium Gluconate 2.2 gm Potassium Chloride 37 meq In Dextrose 70% 214.5017 ml In Amino Acids 8.5% 500 ml In Intralipids 20% 150 ml In Water, Sterile 1,180 ml @ 90 mls/hr IV .Q24H [facility] Rx#:[id number] Valproate Sodium 500 mg 105 105 In Sodium Chloride 0.9% 100 ml @ 100 mls/hr IV Q12HR [facility] Rx#:[id number] Other: # Voids 7 # Bowel Movements 0 0 Weight Source Bedscale Bedscale Active Medications: Current Medications Acetaminophen (Tylenol) 650 mg PO Q6HR PRN PRN Reason: Mild Pain or Fever >101 Stop: 01/03/19 16:25 Acetaminophen (Tylenol Extra Strength) 1,000 mg PO Q8HR PRN PRN Reason: Pain (Moderate) Stop: 01/03/19 16:25 Albuterol/Ipratropium (Duoneb Neb) 3 ml HHN Q6HR PRN PRN Reason: Shortness of Breath or Wheeze Stop: 01/03/19 16:25 Last Admin: 11/12/18 15:25 Dose: 3 ml Ascorbic Acid (Vitamin C) 500 mg PO DAILY [facility] Stop: 01/04/19 08:59 Last Admin: 11/13/18 09:12 Dose: 500 mg Aspirin (Aspirin Chewable) 81 mg PO DAILY [facility] Stop: 01/04/19 08:59 Last Admin: 11/13/18 09:12 Dose: 81 mg Bisacodyl (Dulcolax 10 Mg Supp) 10 mg RC DAILY PRN PRN Reason: Constipation Stop: 01/03/19 16:25 Clonazepam (Klonopin) 0.5 mg PO BID PRN; Protocol PRN Reason: Agitation Stop: 01/11/19 16:59 Dextrose (D50w) 50 ml IVP PRN PRN PRN Reason: Blood Glucose less than 70 Stop: 01/06/19 14:14 Dextrose (Glutose 40%) 18.75 gm PO PRN PRN PRN Reason: Blood Glucose less than 70 Stop: 01/06/19 14:14 Diphenhydramine HCl (Benadryl 50 Mg/Ml) 25 mg IVP Q8H PRN PRN Reason: Itching Stop: 01/10/19 02:17 Last Admin: 11/11/18 02:46 Dose: 25 mg Divalproex Sodium (Depakote Sprinkle) 500 mg PO BID [facility]; Protocol Stop: 01/12/19 16:59 Docusate Sodium (Colace) 100 mg PO BID [facility] Stop: 01/03/19 16:59 Last Admin: 11/13/18 09:12 Dose: 100 mg Ferrous Sulfate (Iron) 325 mg PO DAILY [facility] Stop: 01/04/19 08:59 Last Admin: 11/13/18 09:12 Dose: 325 mg Glucagon (Glucagen) 1 mg IM PRN PRN PRN Reason: Blood Glucose less than 70 Stop: 01/06/19 14:14 Haloperidol (Haldol) 5 mg PO BID [facility]; Protocol Stop: 01/03/19 16:59 Last Admin: 11/13/18 09:22 Dose: 5 mg Haloperidol Lactate (Haldol) 2 mg IM Q6HR PRN PRN Reason: Agitation Stop: 01/03/19 16:25 Last Admin: 11/11/18 23:01 Dose: 2 mg Heparin Sodium (Porcine) (Heparin) 5,000 units SUBQ Q12HR [facility] Stop: 01/11/19 20:59 Last Admin: 11/13/18 09:13 Dose: 5,000 units Hydroxyzine HCl (Atarax) 10 mg GT TID PRN; Protocol PRN Reason: PRURITUS Stop: 01/03/19 16:25 Sodium Chloride (Nacl 0.9%) 250 mls @ 10 mls/hr IV Q24H [facility] Stop: 01/07/19 08:44 Last Admin: 11/12/18 08:15 Dose: 10 mls/hr Multivitamins/Minerals 10 ml/Chromium/Copper/Manganese/Zinc 1 ml/ Sodium Chloride 156 meq / Sodium Phosphate 7 mmole/Magnesium Sulfate 23 meq/Potassium Acetate 34 meq/Calcium Gluconate 2.2 gm/Potassium Chloride 37 meq/Dextrose/ Amino Acids/Electrolytes/ Fat Emulsion Intravenous/ Sterile Water 2,160 mls @ 90 mls/hr IV .Q24H [facility] Stop: 11/13/18 15:59 Last Admin: 11/12/18 17:38 Dose: 90 mls/hr Insulin Human Lispro (Humalog Insulin Sliding Scale) 0 units SUBQ Q6HR [facility]; Protocol Stop: 01/06/19 17:59 Last Admin: 11/13/18 11:44 Dose: Not Given Lactobacillus Rhamnosus (Culturelle 15b) 1 each GT DAILY [facility] Stop: 01/04/19 08:59 Last Admin: 11/13/18 09:13 Dose: 1 each Lactulose (Cephulac) 30 gm PO Q6HR [facility] Stop: 01/03/19 17:59 Last Admin: 11/13/18 11:48 Dose: 30 gm Lorazepam (Ativan) 1 mg IVP Q6H PRN; Protocol PRN Reason: Agitation Stop: 01/04/19 11:20 Last Admin: 11/11/18 20:13 Dose: 1 mg Lorazepam (Ativan) 0.5 mg GT Q6HR PRN; Protocol PRN Reason: Anxiety Stop: 01/11/19 10:41 Magnesium Hydroxide (Milk Of Magnesia) 30 ml GT HS PRN PRN Reason: Constipation Stop: 01/03/19 16:25 Midodrine (Proamatine) 5 mg PO TID [facility] Stop: 01/03/19 20:59 Last Admin: 11/13/18 13:00 Dose: 5 mg Miscellaneous (Ppn Per Pharmacy) 1 ea MC PRN PRN PRN Reason: PROTOCOL Stop: 01/06/19 11:27 Morphine Sulfate (Morphine) 1 mg IVP Q4HR PRN PRN Reason: Pain (Moderate) Stop: 01/11/19 10:46 Morphine Sulfate (Morphine) 2 mg IVP Q4HR PRN PRN Reason: Pain (Severe) Stop: 01/11/19 10:48 Pantoprazole Sodium (Protonix) 40 mg IVP DAILY [facility] Stop: 01/04/19 10:14 Last Admin: 11/13/18 09:13 Dose: 40 mg Pioglitazone HCl (Actos) 15 mg PO DAILY [facility] Stop: 01/04/19 08:59 Last Admin: 11/13/18 09:12 Dose: 15 mg Quetiapine Fumarate (Seroquel) 50 mg PO BID [facility]; Protocol Stop: 01/03/19 16:59 Last Admin: 11/13/18 09:13 Dose: 50 mg Sodium Phosphate (Fleet Enema) 135 ml RC Q48H PRN PRN Reason: IF DULCOLAX INEFFECTIVE Stop: 01/03/19 16:25 Temazepam (Restoril) 15 mg PO HS PRN; Protocol PRN Reason: Insomnia Stop: 01/11/19 10:48 Zolpidem Tartrate (Ambien) 5 mg GT HS [facility] Stop: 01/11/19 20:59 Last Admin: 11/12/18 22:02 Dose: 5 mg General: lethargic, other (Irritable) HEENT: NC/AT, PERRLA Neck: Supple, No JVD Lungs: other (aspiration.) Cardiovascular: Normal S1, Normal S2 Abdomen: soft, non-distended, +GT Extremities: other (Right upper paralysis.) Neurological: no change, disorganized - Procedures Procedures: Procedures Procedure Code Date ASSISTANCE WITH RESPIRATORY VENTILATION, <24 HRS, CPAP [id number] 06/01/18 REMOVAL OF FEEDING DEVICE FROM STOMACH, EXTERNAL APPROACH [id number] 06/21/18 Internal Medicine Assmt/Plan - Assessment Assessment: Irritable mood Agitated Confused Aspiration Right upper extremity paralysis Htn Asthma Copd Dyslipidemia Schizophrenia Bipolar Disorder Mild antral gastritis Dysphagia/S/p PEG Placement Moderate Protein- Calorie Malnutrition - Plan Plan: Continue to Monitor patient closely Monitor vitals, Continue Bp meds as directed Continue present meds as directed Followup with GI PEG care Advance tube feeds per Dietary recommendations Aspiration precaution Followup with Dr. Mcleod for Psych Management Fall precaution Continue present care management Nutritional Asmnt/Malnutr-PDOC - Dietary Evaluation Malnutrition Findings (Please click <Entered> for more info): Nutritional Asmnt/Malnutrition Start: 11/08/18 15: 37 Text: Status: Complete Freq: Protocol: Document 11/08/18 15:37 LCHENG (Rec: 11/08/18 16:03 [email or web address]) Nutritional Asmnt/Malnutrition Patient General Information Nutritional Screening Moderate Risk Diagnosis dysphagia Pertinent Medical Hx/Surgical Hx right upper extremity paralysis, HTN, asthma, COPD, dyslipidemia, schizophrenia, bipolar disorder Subjective Information Pt seen in lasha-chair, confused with unclear speech, has 1:1 sitter. Per nurse note , pt failed swallow eval on and ST recommended NPO with alternative nutrition route. Waiting for PEG consent. Pt is now on PPN. Current Diet Order/ Nutrition Support Dex 8%, AA 4% at 90ml/hr, providing 933kcal, 86g protein Pertinent Medications vit C, colace, iron, humalog, culturelle, seroquel, nacl 0.9 % Pertinent Labs 11/08 BUN 4, Cr 0.5, glucose 128, POC 100-112, Ca 8.4, Mg 1 .6, Alb 3.3 Nutritional Hx/Data Height 1.65 m Height (Calculated Centimeters) 165.1 Current Weight (lbs) 77.564 kg Weight (Calculated Kilograms) 77.6 Weight (Calculated Grams) 46776.3 [place] Body Weight 136 Body Mass Index (BMI) 28.4 Weight Status Overweight GI Symptoms GI Symptoms None Last BM 11/05 Difficult in: None Skin Integrity/Comment: bruise to posterior head Current %PO Negligible < 25% Estimated Nutritional Goals BEE in Kcals: Using Current wt Calories/Kcals/Kg 23-27 Kcals Calculated 6650-6601 Protein: Using Current wt Protein g/k Protein Calculated 78 Fluid: ml 1794-2106ml (1ml/kcal) Nutritional Problem 2. Problem Problem altered nutrition labs Etiology electrolytes imbalance Signs/Symptoms: mg 1.6, Ca 8.4 1. Problem Problem altered GI function Etiology pt failed swallow eval Signs/Symptoms: pt on PPN and need for PEG Malnutrition Alert Is there a minimum of two criteria No selected? Query Text:Check all the applicable criteria. A minimum of two criteria are recommended for diagnosis of either severe or non-severe malnutrition. Malnutrition Related to Morbid Obesity Malnutrition related to morbid obesity No Intervention/Recommendation Comments 1. Recommend PPN to meet 1794kcal and 78g protein. Recomendation sent to pharmacy . 2. Initiat TF after PEG placement. 3. Monitor PO intake, wt, labs and skin integrity 4. F/U as high risk in 2-3 days Expected Outcomes/Goals Expected Outcomes/Goals 1. Pt to meet at least 90% of nutritional needs via nutrition support with tolerance 2. Wt stability, skin to remain intact, labs to approach WNL.
--- NOTE | 2018-11-13 14:41 | GI Progress Note ---
Subjective - Review of Systems Service Date: 11/13/18 Events since last encounter: NO NEW EVENTS, TOLERATING G TUBE FEEDS Objective - Results Result Diagrams: 11/11/18 05:45 11/13/18 05:50 Recent Labs: Laboratory Last Values WBC 12.3 Th/cmm (4.8-10.8) H 11/11/18 05:45 RBC 5.02 Mil/cmm (4.30-5.70) 11/11/18 05:45 Hgb 14.3 gm/dL (12-16) 11/11/18 05:45 Hct 44.1 % (41.0-60) 11/11/18 05:45 MCV 87.8 fl (80-99) 11/11/18 05:45 MCH 28.4 pg (26.0-30.0) 11/11/18 05:45 MCHC Differential 32.3 pg (28.0-36.0) 11/11/18 05:45 RDW 15.4 % (11.5-20.0) 11/11/18 05:45 Plt Count 375 Th/cmm (150-400) 11/11/18 05:45 MPV 8.0 fl 11/11/18 05:45 Add Manual Diff YES 11/05/18 05:15 Neutrophils % 71.6 % (40.0-80.0) 11/11/18 05:45 Band Neutrophils % 1 % (0-10) 11/05/18 05:15 Lymphocytes % 14.9 % (20.0-50.0) L 11/11/18 05:45 Monocytes % 9.3 % (2.0-10.0) 11/11/18 05:45 Eosinophils % 3.5 % (0.0-5.0) 11/11/18 05:45 Basophils % 0.7 % (0.0-2.0) 11/11/18 05:45 Neutrophils (Manual) 85 % (40-80) H 11/05/18 05:15 Lymphocytes 6 % (20-50) L 11/05/18 05:15 Monocytes 8 % (2-10) 11/05/18 05:15 Eosinophils 0 % (0-5) 11/05/18 05:15 Basophils 0 % (0-3) 11/05/18 05:15 PT 10.1 SECONDS (9.5-11.5) 11/12/18 05:45 INR 0.97 (0.5-1.4) 11/12/18 05:45 Sodium 136 mEq/L (136-145) 11/13/18 05:50 Potassium 4.3 mEq/L (3.5-5.1) 11/13/18 05:50 Chloride 102 mEq/L (98-107) 11/13/18 05:50 Carbon Dioxide 25.0 mEq/L (21.0-31.0) 11/13/18 05:50 Anion Gap 13.3 (7.0-16.0) 11/13/18 05:50 BUN 18 mg/dL (7-25) 11/13/18 05:50 Creatinine 0.7 mg/dL (0.7-1.3) 11/13/18 05:50 Est GFR ( Amer) > 60.0 ml/min (>90) 11/13/18 05:50 Est GFR (Non-Af Amer) > 60.0 ml/min 11/13/18 05:50 BUN/Creatinine Ratio 25.7 11/13/18 05:50 Glucose 120 mg/dL (70-105) H 11/13/18 05:50 POC Glucose 104 MG/DL (70 - 105) 11/13/18 11:42 Calcium 9.4 mg/dL (8.6-10.3) 11/13/18 05:50 Phosphorus 4.0 mg/dL (2.5-5.0) 11/13/18 05:50 Magnesium 2.0 mg/dL (1.9-2.7) 11/13/18 05:50 Total Bilirubin 0.4 mg/dL (0.3-1.0) 11/11/18 05:45 AST 27 U/L (13-39) 11/11/18 05:45 ALT 25 U/L (7-52) 11/11/18 05:45 Alkaline Phosphatase 90 U/L (34-104) 11/11/18 05:45 Total Protein 7.2 gm/dL (6.0-8.3) 11/11/18 05:45 Albumin 3.9 gm/dL (4.2-5.5) L 11/11/18 05:45 Globulin 3.3 gm/dL 11/11/18 05:45 Albumin/Globulin Ratio 1.2 (1.0-1.8) 11/11/18 05:45 Prealbumin 12 mg/dL (10-36) 11/09/18 05:10 Triglycerides 111 mg/dL (<150) 11/09/18 05:10 Cholesterol 121 mg/dL (<200) 11/12/18 05:45 Urine Phosphorus <3.4 mg/dL (Not Estab.) 11/09/18 19:48 Ur Phosphorus 24 Hr mg/24 hr (400.0-1300.0) 11/09/18 19:48 Valproic Acid 63.4 ug/mL (50.0-100.0) 11/13/18 05:50 Helicobacter pylori Ab NEGATIVE (NEGATIVE) 11/12/18 13:25 - Physical Exam Vitals and I&O: Vital Signs Temp 98.2 F 11/13/18 12:33 Pulse 92 11/13/18 12:33 Resp 18 11/13/18 12:33 BP 111/64 11/13/18 12:33 Pulse Ox 98 11/13/18 12:33 Intake & Output 11/12/18 11/13/18 11/13/18 18:59 06:59 18:59 Intake Total 2265 105 Balance 2265 105 Weight (lbs) 63.049 kg 63.049 kg Intake: Intake, IV Amount 2265 105 Multivitamin Inj 10 ml 2160 Trace Element 1 ml Sodium Chloride 156 meq Sodium Phosphate 7 mmole Magnesium Sulfate 23 meq Potassium Acetate 34 meq Calcium Gluconate 2.2 gm Potassium Chloride 37 meq In Dextrose 70% 214.5017 ml In Amino Acids 8.5% 500 ml In Intralipids 20% 150 ml In Water, Sterile 1,180 ml @ 90 mls/hr IV .Q24H [facility] Rx#:[id number] Valproate Sodium 500 mg 105 105 In Sodium Chloride 0.9% 100 ml @ 100 mls/hr IV Q12HR [facility] Rx#:[id number] Other: # Voids 7 # Bowel Movements 0 0 Weight Source Bedscale Bedscale Active Medications: Current Medications Acetaminophen (Tylenol) 650 mg PO Q6HR PRN PRN Reason: Mild Pain or Fever >101 Stop: 01/03/19 16:25 Acetaminophen (Tylenol Extra Strength) 1,000 mg PO Q8HR PRN PRN Reason: Pain (Moderate) Stop: 01/03/19 16:25 Albuterol/Ipratropium (Duoneb Neb) 3 ml HHN Q6HR PRN PRN Reason: Shortness of Breath or Wheeze Stop: 01/03/19 16:25 Last Admin: 11/12/18 15:25 Dose: 3 ml Ascorbic Acid (Vitamin C) 500 mg PO DAILY [facility] Stop: 01/04/19 08:59 Last Admin: 11/13/18 09:12 Dose: 500 mg Aspirin (Aspirin Chewable) 81 mg PO DAILY [facility] Stop: 01/04/19 08:59 Last Admin: 11/13/18 09:12 Dose: 81 mg Bisacodyl (Dulcolax 10 Mg Supp) 10 mg RC DAILY PRN PRN Reason: Constipation Stop: 01/03/19 16:25 Clonazepam (Klonopin) 0.5 mg PO BID PRN; Protocol PRN Reason: Agitation Stop: 01/11/19 16:59 Dextrose (D50w) 50 ml IVP PRN PRN PRN Reason: Blood Glucose less than 70 Stop: 01/06/19 14:14 Dextrose (Glutose 40%) 18.75 gm PO PRN PRN PRN Reason: Blood Glucose less than 70 Stop: 01/06/19 14:14 Diphenhydramine HCl (Benadryl 50 Mg/Ml) 25 mg IVP Q8H PRN PRN Reason: Itching Stop: 01/10/19 02:17 Last Admin: 11/11/18 02:46 Dose: 25 mg Divalproex Sodium (Depakote Sprinkle) 500 mg PO BID [facility]; Protocol Stop: 01/12/19 16:59 Docusate Sodium (Colace) 100 mg PO BID [facility] Stop: 01/03/19 16:59 Last Admin: 11/13/18 09:12 Dose: 100 mg Ferrous Sulfate (Iron) 325 mg PO DAILY [facility] Stop: 01/04/19 08:59 Last Admin: 11/13/18 09:12 Dose: 325 mg Glucagon (Glucagen) 1 mg IM PRN PRN PRN Reason: Blood Glucose less than 70 Stop: 01/06/19 14:14 Haloperidol (Haldol) 5 mg PO BID [facility]; Protocol Stop: 01/03/19 16:59 Last Admin: 11/13/18 09:22 Dose: 5 mg Haloperidol Lactate (Haldol) 2 mg IM Q6HR PRN PRN Reason: Agitation Stop: 01/03/19 16:25 Last Admin: 11/11/18 23:01 Dose: 2 mg Heparin Sodium (Porcine) (Heparin) 5,000 units SUBQ Q12HR [facility] Stop: 01/11/19 20:59 Last Admin: 11/13/18 09:13 Dose: 5,000 units Hydroxyzine HCl (Atarax) 10 mg GT TID PRN; Protocol PRN Reason: PRURITUS Stop: 01/03/19 16:25 Sodium Chloride (Nacl 0.9%) 250 mls @ 10 mls/hr IV Q24H [facility] Stop: 01/07/19 08:44 Last Admin: 11/12/18 08:15 Dose: 10 mls/hr Multivitamins/Minerals 10 ml/Chromium/Copper/Manganese/Zinc 1 ml/ Sodium Chloride 156 meq / Sodium Phosphate 7 mmole/Magnesium Sulfate 23 meq/Potassium Acetate 34 meq/Calcium Gluconate 2.2 gm/Potassium Chloride 37 meq/Dextrose/ Amino Acids/Electrolytes/ Fat Emulsion Intravenous/ Sterile Water 2,160 mls @ 90 mls/hr IV .Q24H [facility] Stop: 11/13/18 15:59 Last Admin: 11/12/18 17:38 Dose: 90 mls/hr Insulin Human Lispro (Humalog Insulin Sliding Scale) 0 units SUBQ Q6HR [facility]; Protocol Stop: 01/06/19 17:59 Last Admin: 11/13/18 11:44 Dose: Not Given Lactobacillus Rhamnosus (Culturelle 15b) 1 each GT DAILY [facility] Stop: 01/04/19 08:59 Last Admin: 11/13/18 09:13 Dose: 1 each Lactulose (Cephulac) 30 gm PO Q6HR [facility] Stop: 01/03/19 17:59 Last Admin: 11/13/18 11:48 Dose: 30 gm Lorazepam (Ativan) 1 mg IVP Q6H PRN; Protocol PRN Reason: Agitation Stop: 01/04/19 11:20 Last Admin: 11/11/18 20:13 Dose: 1 mg Lorazepam (Ativan) 0.5 mg GT Q6HR PRN; Protocol PRN Reason: Anxiety Stop: 01/11/19 10:41 Magnesium Hydroxide (Milk Of Magnesia) 30 ml GT HS PRN PRN Reason: Constipation Stop: 01/03/19 16:25 Midodrine (Proamatine) 5 mg PO TID [facility] Stop: 01/03/19 20:59 Last Admin: 11/13/18 13:00 Dose: 5 mg Miscellaneous (Ppn Per Pharmacy) 1 ea MC PRN PRN PRN Reason: PROTOCOL Stop: 01/06/19 11:27 Morphine Sulfate (Morphine) 1 mg IVP Q4HR PRN PRN Reason: Pain (Moderate) Stop: 01/11/19 10:46 Morphine Sulfate (Morphine) 2 mg IVP Q4HR PRN PRN Reason: Pain (Severe) Stop: 01/11/19 10:48 Pantoprazole Sodium (Protonix) 40 mg IVP DAILY [facility] Stop: 01/04/19 10:14 Last Admin: 11/13/18 09:13 Dose: 40 mg Pioglitazone HCl (Actos) 15 mg PO DAILY [facility] Stop: 01/04/19 08:59 Last Admin: 11/13/18 09:12 Dose: 15 mg Quetiapine Fumarate (Seroquel) 50 mg PO BID [facility]; Protocol Stop: 01/03/19 16:59 Last Admin: 11/13/18 09:13 Dose: 50 mg Sodium Phosphate (Fleet Enema) 135 ml RC Q48H PRN PRN Reason: IF DULCOLAX INEFFECTIVE Stop: 01/03/19 16:25 Temazepam (Restoril) 15 mg PO HS PRN; Protocol PRN Reason: Insomnia Stop: 01/11/19 10:48 Zolpidem Tartrate (Ambien) 5 mg GT HS [facility] Stop: 01/11/19 20:59 Last Admin: 11/12/18 22:02 Dose: 5 mg General: No acute distress HEENT: PERRLA, EOMI Neck: Supple Cardiovascular: Regular rate Lungs: Clear to auscultation Abdomen: Bowel sounds, Soft Neurological: Normal tone - Procedures Procedures: Procedures Procedure Code Date ASSISTANCE WITH RESPIRATORY VENTILATION, <24 HRS, CPAP [id number] 06/01/18 REMOVAL OF FEEDING DEVICE FROM STOMACH, EXTERNAL APPROACH [id number] 06/21/18 Assessment/Plan - Assessment Assessment: 1. Oropharyngeal Dysphagia 2. Significant aspiration 3. Protein calorie malnutrition -S/P 20f PEG TUBE PLACEMENT YESTERDAY -PT TOLERATING TUBE FEEDS -CONTINUE WITH G TUBE CARE -CHECK GASTRIC RESIDUALS FREE WATER FLUSHES 50CC Q HOURS
--- NOTE | 2018-11-13 23:00 | Progress Notes ---
DATE: 11/13/2018 Case was discussed with staff of the patient, reviewed records. The patient had a G-tube inserted yesterday. He has mittens on his hand. He is less agitated, more on the sedated side. He eats through the G-tube. He is sleeping well. No other side effects of the medication. The patient needs follow up with the psychiatrist upon discharge. Thank you very much for allowing me to participate in the care of this most interesting gentleman. JOB# [id number]
[2018-11-14] MEDS: INSULIN LISPRO SLIDING SCALE 100 UNITS/ML UNIT SUBQ SCH ×4 (01:44→17:47)
[2018-11-14] MEDS: Lactulose 10 Gm/15 mL 30mL UDC PO SCH ×3 (06:44→17:57)
[2018-11-14 06:56] LABS: ANION GAP 10.9 (7.0-16.0); BUN - UREA NITROGEN 13 mg/dL (7-25); CALCIUM SERUM 8.7 mg/dL (8.6-10.3); CARBON DIOXIDE 26.2 mEq/L (21.0-31.0); CHLORIDE 102 mEq/L (98-107); CREATININE - SERUM 0.7 mg/dL (0.7-1.3); GFR AFRICAN-AMERICAN > 60.0 ml/min (>90); GFR NON AFRICAN-AMERICAN > 60.0 ml/min; GLUCOSE 107 mg/dL (70-105); MAGNESIUM 1.9 mg/dL (1.9-2.7); POTASSIUM SERUM 4.1 mEq/L (3.5-5.1); SODIUM SERUM 135 mEq/L (136-145)
[2018-11-14] MEDS: Sodium Chloride 0.9% 250 ML IV SCH (08:09)
[2018-11-14] MEDS: Lactobacillus Rhamnosus GG 15 Billion CFU CAP.SPRINK GT SCH (08:13)
[2018-11-14] MEDS: Ferrous Sulfate 325 MG TAB PO SCH (08:14)
[2018-11-14] MEDS: Aspirin 81mg Chewable Tab PO SCH (08:14)
--- NOTE | 2018-11-14 17:59 | Internal Medicine Prog Note ---
Internal Medicine Subjective - Subjective Service Date: 11/14/18 Patient is:: awake, verbal, agitated, confused, other (continues to be aggressive and in irritated mood.) Patient Complaints of:: other (S/p PEG Placement.) Per staff patient has:: no adverse event, no episodes of fall, poor oral intake , agitated, confused Internal Medicine Objective - Results Result Diagrams: 11/11/18 05:45 11/14/18 06:25 Recent Labs: Laboratory Last Values WBC 12.3 Th/cmm (4.8-10.8) H 11/11/18 05:45 RBC 5.02 Mil/cmm (4.30-5.70) 11/11/18 05:45 Hgb 14.3 gm/dL (12-16) 11/11/18 05:45 Hct 44.1 % (41.0-60) 11/11/18 05:45 MCV 87.8 fl (80-99) 11/11/18 05:45 MCH 28.4 pg (26.0-30.0) 11/11/18 05:45 MCHC Differential 32.3 pg (28.0-36.0) 11/11/18 05:45 RDW 15.4 % (11.5-20.0) 11/11/18 05:45 Plt Count 375 Th/cmm (150-400) 11/11/18 05:45 MPV 8.0 fl 11/11/18 05:45 Add Manual Diff YES 11/05/18 05:15 Neutrophils % 71.6 % (40.0-80.0) 11/11/18 05:45 Band Neutrophils % 1 % (0-10) 11/05/18 05:15 Lymphocytes % 14.9 % (20.0-50.0) L 11/11/18 05:45 Monocytes % 9.3 % (2.0-10.0) 11/11/18 05:45 Eosinophils % 3.5 % (0.0-5.0) 11/11/18 05:45 Basophils % 0.7 % (0.0-2.0) 11/11/18 05:45 Neutrophils (Manual) 85 % (40-80) H 11/05/18 05:15 Lymphocytes 6 % (20-50) L 11/05/18 05:15 Monocytes 8 % (2-10) 11/05/18 05:15 Eosinophils 0 % (0-5) 11/05/18 05:15 Basophils 0 % (0-3) 11/05/18 05:15 PT 10.1 SECONDS (9.5-11.5) 11/12/18 05:45 INR 0.97 (0.5-1.4) 11/12/18 05:45 Sodium 135 mEq/L (136-145) L 11/14/18 06:25 Potassium 4.1 mEq/L (3.5-5.1) 11/14/18 06:25 Chloride 102 mEq/L (98-107) 11/14/18 06:25 Carbon Dioxide 26.2 mEq/L (21.0-31.0) 11/14/18 06:25 Anion Gap 10.9 (7.0-16.0) 11/14/18 06:25 BUN 13 mg/dL (7-25) 11/14/18 06:25 Creatinine 0.7 mg/dL (0.7-1.3) 11/14/18 06:25 Est GFR ( Amer) > 60.0 ml/min (>90) 11/14/18 06:25 Est GFR (Non-Af Amer) > 60.0 ml/min 11/14/18 06:25 BUN/Creatinine Ratio 18.6 11/14/18 06:25 Glucose 107 mg/dL (70-105) H 11/14/18 06:25 POC Glucose 107 MG/DL (70 - 105) H 11/14/18 17:42 Calcium 8.7 mg/dL (8.6-10.3) 11/14/18 06:25 Phosphorus 4.0 mg/dL (2.5-5.0) 11/13/18 05:50 Magnesium 1.9 mg/dL (1.9-2.7) 11/14/18 06:25 Total Bilirubin 0.4 mg/dL (0.3-1.0) 11/11/18 05:45 AST 27 U/L (13-39) 11/11/18 05:45 ALT 25 U/L (7-52) 11/11/18 05:45 Alkaline Phosphatase 90 U/L (34-104) 11/11/18 05:45 Total Protein 7.2 gm/dL (6.0-8.3) 11/11/18 05:45 Albumin 3.9 gm/dL (4.2-5.5) L 11/11/18 05:45 Globulin 3.3 gm/dL 11/11/18 05:45 Albumin/Globulin Ratio 1.2 (1.0-1.8) 11/11/18 05:45 Prealbumin 12 mg/dL (10-36) 11/09/18 05:10 Triglycerides 111 mg/dL (<150) 11/09/18 05:10 Cholesterol 121 mg/dL (<200) 11/12/18 05:45 Urine Phosphorus <3.4 mg/dL (Not Estab.) 11/09/18 19:48 Ur Phosphorus 24 Hr mg/24 hr (400.0-1300.0) 11/09/18 19:48 Valproic Acid 63.4 ug/mL (50.0-100.0) 11/13/18 05:50 Helicobacter pylori Ab NEGATIVE (NEGATIVE) 11/12/18 13:25 - Physical Exam Vitals and I&O: Vital Signs Temp 98.6 F 11/14/18 09:00 Pulse 97 11/14/18 09:28 Resp 18 11/14/18 09:28 BP 102/63 11/14/18 09:00 Pulse Ox 85 11/14/18 09:28 Intake & Output 11/13/18 11/14/18 11/14/18 18:59 06:59 18:59 Intake Total 250 340 580 Balance 250 340 580 Weight (lbs) 139 lb 139 lb Intake: Intake, IV Amount 250 Sodium Chloride 0.9% 250 250 ml @ 10 mls/hr IV Q24H [facility] Rx#:[id number] Oral 0 0 Tube Feeding 340 580 Other: # Voids 3 3 # Bowel Movements 0 0 Weight Source Bedscale Bedscale Active Medications: Current Medications Acetaminophen (Tylenol) 650 mg PO Q6HR PRN PRN Reason: Mild Pain or Fever >101 Stop: 01/03/19 16:25 Acetaminophen (Tylenol Extra Strength) 1,000 mg PO Q8HR PRN PRN Reason: Pain (Moderate) Stop: 01/03/19 16:25 Albuterol/Ipratropium (Duoneb Neb) 3 ml HHN Q6HR PRN PRN Reason: Shortness of Breath or Wheeze Stop: 01/03/19 16:25 Last Admin: 11/12/18 15:25 Dose: 3 ml Ascorbic Acid (Vitamin C) 500 mg PO DAILY [facility] Stop: 01/04/19 08:59 Last Admin: 11/14/18 08:12 Dose: 500 mg Aspirin (Aspirin Chewable) 81 mg PO DAILY [facility] Stop: 01/04/19 08:59 Last Admin: 11/14/18 08:14 Dose: 81 mg Bisacodyl (Dulcolax 10 Mg Supp) 10 mg RC DAILY PRN PRN Reason: Constipation Stop: 01/03/19 16:25 Clonazepam (Klonopin) 0.5 mg PO BID PRN; Protocol PRN Reason: Agitation Stop: 01/11/19 16:59 Dextrose (D50w) 50 ml IVP PRN PRN PRN Reason: Blood Glucose less than 70 Stop: 01/06/19 14:14 Dextrose (Glutose 40%) 18.75 gm PO PRN PRN PRN Reason: Blood Glucose less than 70 Stop: 01/06/19 14:14 Diphenhydramine HCl (Benadryl 50 Mg/Ml) 25 mg IVP Q8H PRN PRN Reason: Itching Stop: 01/10/19 02:17 Last Admin: 11/11/18 02:46 Dose: 25 mg Divalproex Sodium (Depakote Sprinkle) 500 mg PO BID [facility]; Protocol Stop: 01/12/19 16:59 Last Admin: 11/14/18 17:55 Dose: 500 mg Docusate Sodium (Colace) 100 mg PO BID [facility] Stop: 01/03/19 16:59 Last Admin: 11/14/18 17:55 Dose: 100 mg Ferrous Sulfate (Iron) 325 mg PO DAILY [facility] Stop: 01/04/19 08:59 Last Admin: 11/14/18 08:14 Dose: 325 mg Glucagon (Glucagen) 1 mg IM PRN PRN PRN Reason: Blood Glucose less than 70 Stop: 01/06/19 14:14 Haloperidol (Haldol) 5 mg PO BID [facility]; Protocol Stop: 01/03/19 16:59 Last Admin: 11/14/18 17:55 Dose: 5 mg Haloperidol Lactate (Haldol) 2 mg IM Q6HR PRN PRN Reason: Agitation Stop: 01/03/19 16:25 Last Admin: 11/11/18 23:01 Dose: 2 mg Heparin Sodium (Porcine) (Heparin) 5,000 units SUBQ Q12HR [facility] Stop: 01/11/19 20:59 Last Admin: 11/14/18 08:13 Dose: 5,000 units Hydroxyzine HCl (Atarax) 10 mg GT TID PRN; Protocol PRN Reason: PRURITUS Stop: 01/03/19 16:25 Sodium Chloride (Nacl 0.9%) 250 mls @ 10 mls/hr IV Q24H [facility] Stop: 01/07/19 08:44 Last Admin: 11/14/18 08:09 Dose: 10 mls/hr Insulin Human Lispro (Humalog Insulin Sliding Scale) 0 units SUBQ Q6HR [facility]; Protocol Stop: 01/06/19 17:59 Last Admin: 11/14/18 17:47 Dose: Not Given Lactobacillus Rhamnosus (Culturelle 15b) 1 each GT DAILY [facility] Stop: 01/04/19 08:59 Last Admin: 11/14/18 08:13 Dose: 1 each Lactulose (Cephulac) 30 gm PO Q6HR [facility] Stop: 01/03/19 17:59 Last Admin: 11/14/18 17:57 Dose: 30 gm Lorazepam (Ativan) 1 mg IVP Q6H PRN; Protocol PRN Reason: Agitation Stop: 01/04/19 11:20 Last Admin: 11/11/18 20:13 Dose: 1 mg Lorazepam (Ativan) 0.5 mg GT Q6HR PRN; Protocol PRN Reason: Anxiety Stop: 01/11/19 10:41 Magnesium Hydroxide (Milk Of Magnesia) 30 ml GT HS PRN PRN Reason: Constipation Stop: 01/03/19 16:25 Midodrine (Proamatine) 5 mg PO TID [facility] Stop: 01/03/19 20:59 Last Admin: 11/14/18 14:54 Dose: 5 mg Morphine Sulfate (Morphine) 1 mg IVP Q4HR PRN PRN Reason: Pain (Moderate) Stop: 01/11/19 10:46 Morphine Sulfate (Morphine) 2 mg IVP Q4HR PRN PRN Reason: Pain (Severe) Stop: 01/11/19 10:48 Pantoprazole Sodium (Protonix) 40 mg IVP DAILY [facility] Stop: 01/04/19 10:14 Last Admin: 11/14/18 08:12 Dose: 40 mg Pioglitazone HCl (Actos) 15 mg PO DAILY [facility] Stop: 01/04/19 08:59 Last Admin: 11/14/18 08:13 Dose: 15 mg Quetiapine Fumarate (Seroquel) 50 mg PO BID [facility]; Protocol Stop: 01/03/19 16:59 Last Admin: 11/14/18 17:55 Dose: 50 mg Sodium Phosphate (Fleet Enema) 135 ml RC Q48H PRN PRN Reason: IF DULCOLAX INEFFECTIVE Stop: 01/03/19 16:25 Temazepam (Restoril) 15 mg PO HS PRN; Protocol PRN Reason: Insomnia Stop: 01/11/19 10:48 Zolpidem Tartrate (Ambien) 5 mg GT HS [facility] Stop: 01/11/19 20:59 Last Admin: 11/13/18 22:51 Dose: 5 mg General: lethargic, other (Irritable) HEENT: NC/AT, PERRLA Neck: Supple, No JVD Lungs: other (aspiration.) Cardiovascular: Normal S1, Normal S2 Abdomen: soft, non-distended, +GT Extremities: other (Right upper paralysis.) Neurological: no change, disorganized - Procedures Procedures: Procedures Procedure Code Date ASSISTANCE WITH RESPIRATORY VENTILATION, <24 HRS, CPAP [id number] 06/01/18 REMOVAL OF FEEDING DEVICE FROM STOMACH, EXTERNAL APPROACH [id number] 06/21/18 Internal Medicine Assmt/Plan - Assessment Assessment: dysphagia hx rue paralysis htn asthma copd dyslipidemia schzophrenia bipolar leukocytosis moderate protein florentin malnutrition - Plan Plan: am labs dc tele as patient refuses tele monitor continue current plan of care Nutritional Asmnt/Malnutr-PDOC - Dietary Evaluation Malnutrition Findings (Please click <Entered> for more info): Nutritional Asmnt/Malnutrition Start: 11/08/18 15: 37 Text: Status: Complete Freq: Protocol: Document 11/08/18 15:37 [email or web address] (Rec: 11/08/18 16:03 IONAG [email or web address]) Nutritional Asmnt/Malnutrition Patient General Information Nutritional Screening Moderate Risk Diagnosis dysphagia Pertinent Medical Hx/Surgical Hx right upper extremity paralysis, HTN, asthma, COPD, dyslipidemia, schizophrenia, bipolar disorder Subjective Information Pt seen in lasha-chair, confused with unclear speech, has 1:1 sitter. Per nurse note , pt failed swallow eval on and ST recommended NPO with alternative nutrition route. Waiting for PEG consent. Pt is now on PPN. Current Diet Order/ Nutrition Support Dex 8%, AA 4% at 90ml/hr, providing 933kcal, 86g protein Pertinent Medications vit C, colace, iron, humalog, culturelle, seroquel, nacl 0.9 % Pertinent Labs 11/08 BUN 4, Cr 0.5, glucose 128, POC 100-112, Ca 8.4, Mg 1 .6, Alb 3.3 Nutritional Hx/Data Height 5 ft 5 in Height (Calculated Centimeters) 165.1 Current Weight (lbs) 171 lb Weight (Calculated Kilograms) 77.6 Weight (Calculated Grams) [address]19.3 [place] Body Weight 136 Body Mass Index (BMI) 28.4 Weight Status Overweight GI Symptoms GI Symptoms None Last BM 11/05 Difficult in: None Skin Integrity/Comment: bruise to posterior head Current %PO Negligible < 25% Estimated Nutritional Goals BEE in Kcals: Using Current wt Calories/Kcals/Kg 23-27 Kcals Calculated 1386-9470 Protein: Using Current wt Protein g/k Protein Calculated 78 Fluid: ml 1794-2106ml (1ml/kcal) Nutritional Problem 2. Problem Problem altered nutrition labs Etiology electrolytes imbalance Signs/Symptoms: mg 1.6, Ca 8.4 1. Problem Problem altered GI function Etiology pt failed swallow eval Signs/Symptoms: pt on PPN and need for PEG Malnutrition Alert Is there a minimum of two criteria No selected? Query Text:Check all the applicable criteria. A minimum of two criteria are recommended for diagnosis of either severe or non-severe malnutrition. Malnutrition Related to Morbid Obesity Malnutrition related to morbid obesity No Intervention/Recommendation Comments 1. Recommend PPN to meet 1794kcal and 78g protein. Recomendation sent to pharmacy . 2. Initiat TF after PEG placement. 3. Monitor PO intake, wt, labs and skin integrity 4. F/U as high risk in 2-3 days Expected Outcomes/Goals Expected Outcomes/Goals 1. Pt to meet at least 90% of nutritional needs via nutrition support with tolerance 2. Wt stability, skin to remain intact, labs to approach WNL.
--- NOTE | 2018-11-14 21:34 | GI Progress Note ---
Subjective - Review of Systems Service Date: 11/14/18 Events since last encounter: NO NEW EVENTS, S/P PEG TUBE TOLERATING TF Objective - Results Result Diagrams: 11/11/18 05:45 11/14/18 06:25 Recent Labs: Laboratory Last Values WBC 12.3 Th/cmm (4.8-10.8) H 11/11/18 05:45 RBC 5.02 Mil/cmm (4.30-5.70) 11/11/18 05:45 Hgb 14.3 gm/dL (12-16) 11/11/18 05:45 Hct 44.1 % (41.0-60) 11/11/18 05:45 MCV 87.8 fl (80-99) 11/11/18 05:45 MCH 28.4 pg (26.0-30.0) 11/11/18 05:45 MCHC Differential 32.3 pg (28.0-36.0) 11/11/18 05:45 RDW 15.4 % (11.5-20.0) 11/11/18 05:45 Plt Count 375 Th/cmm (150-400) 11/11/18 05:45 MPV 8.0 fl 11/11/18 05:45 Add Manual Diff YES 11/05/18 05:15 Neutrophils % 71.6 % (40.0-80.0) 11/11/18 05:45 Band Neutrophils % 1 % (0-10) 11/05/18 05:15 Lymphocytes % 14.9 % (20.0-50.0) L 11/11/18 05:45 Monocytes % 9.3 % (2.0-10.0) 11/11/18 05:45 Eosinophils % 3.5 % (0.0-5.0) 11/11/18 05:45 Basophils % 0.7 % (0.0-2.0) 11/11/18 05:45 Neutrophils (Manual) 85 % (40-80) H 11/05/18 05:15 Lymphocytes 6 % (20-50) L 11/05/18 05:15 Monocytes 8 % (2-10) 11/05/18 05:15 Eosinophils 0 % (0-5) 11/05/18 05:15 Basophils 0 % (0-3) 11/05/18 05:15 PT 10.1 SECONDS (9.5-11.5) 11/12/18 05:45 INR 0.97 (0.5-1.4) 11/12/18 05:45 Sodium 135 mEq/L (136-145) L 11/14/18 06:25 Potassium 4.1 mEq/L (3.5-5.1) 11/14/18 06:25 Chloride 102 mEq/L (98-107) 11/14/18 06:25 Carbon Dioxide 26.2 mEq/L (21.0-31.0) 11/14/18 06:25 Anion Gap 10.9 (7.0-16.0) 11/14/18 06:25 BUN 13 mg/dL (7-25) 11/14/18 06:25 Creatinine 0.7 mg/dL (0.7-1.3) 11/14/18 06:25 Est GFR ( Amer) > 60.0 ml/min (>90) 11/14/18 06:25 Est GFR (Non-Af Amer) > 60.0 ml/min 11/14/18 06:25 BUN/Creatinine Ratio 18.6 11/14/18 06:25 Glucose 107 mg/dL (70-105) H 11/14/18 06:25 POC Glucose 107 MG/DL (70 - 105) H 11/14/18 17:42 Calcium 8.7 mg/dL (8.6-10.3) 11/14/18 06:25 Phosphorus 4.0 mg/dL (2.5-5.0) 11/13/18 05:50 Magnesium 1.9 mg/dL (1.9-2.7) 11/14/18 06:25 Total Bilirubin 0.4 mg/dL (0.3-1.0) 11/11/18 05:45 AST 27 U/L (13-39) 11/11/18 05:45 ALT 25 U/L (7-52) 11/11/18 05:45 Alkaline Phosphatase 90 U/L (34-104) 11/11/18 05:45 Total Protein 7.2 gm/dL (6.0-8.3) 11/11/18 05:45 Albumin 3.9 gm/dL (4.2-5.5) L 11/11/18 05:45 Globulin 3.3 gm/dL 11/11/18 05:45 Albumin/Globulin Ratio 1.2 (1.0-1.8) 11/11/18 05:45 Prealbumin 12 mg/dL (10-36) 11/09/18 05:10 Triglycerides 111 mg/dL (<150) 11/09/18 05:10 Cholesterol 121 mg/dL (<200) 11/12/18 05:45 Urine Phosphorus <3.4 mg/dL (Not Estab.) 11/09/18 19:48 Ur Phosphorus 24 Hr mg/24 hr (400.0-1300.0) 11/09/18 19:48 Valproic Acid 63.4 ug/mL (50.0-100.0) 11/13/18 05:50 Helicobacter pylori Ab NEGATIVE (NEGATIVE) 11/12/18 13:25 - Physical Exam Vitals and I&O: Vital Signs Temp 98.4 F 11/14/18 17:00 Pulse 88 11/14/18 19:48 Resp 20 11/14/18 19:48 BP 114/60 11/14/18 17:00 Pulse Ox 96 11/14/18 19:48 Intake & Output 11/14/18 11/14/18 11/15/18 06:59 18:59 06:59 Intake Total 340 1900 Balance 340 1900 Weight (lbs) 63.049 kg 63.049 kg Intake: Oral 0 0 Tube Feeding 340 1300 Other 600 Other: # Voids 3 4 # Bowel Movements 0 0 Weight Source Bedscale Bedscale Active Medications: Current Medications Acetaminophen (Tylenol) 650 mg PO Q6HR PRN PRN Reason: Mild Pain or Fever >101 Stop: 01/03/19 16:25 Acetaminophen (Tylenol Extra Strength) 1,000 mg PO Q8HR PRN PRN Reason: Pain (Moderate) Stop: 01/03/19 16:25 Albuterol/Ipratropium (Duoneb Neb) 3 ml HHN Q6HR PRN PRN Reason: Shortness of Breath or Wheeze Stop: 01/03/19 16:25 Last Admin: 11/12/18 15:25 Dose: 3 ml Ascorbic Acid (Vitamin C) 500 mg PO DAILY [facility] Stop: 01/04/19 08:59 Last Admin: 11/14/18 08:12 Dose: 500 mg Aspirin (Aspirin Chewable) 81 mg PO DAILY [facility] Stop: 01/04/19 08:59 Last Admin: 11/14/18 08:14 Dose: 81 mg Bisacodyl (Dulcolax 10 Mg Supp) 10 mg RC DAILY PRN PRN Reason: Constipation Stop: 01/03/19 16:25 Clonazepam (Klonopin) 0.5 mg PO BID PRN; Protocol PRN Reason: Agitation Stop: 01/11/19 16:59 Dextrose (D50w) 50 ml IVP PRN PRN PRN Reason: Blood Glucose less than 70 Stop: 01/06/19 14:14 Dextrose (Glutose 40%) 18.75 gm PO PRN PRN PRN Reason: Blood Glucose less than 70 Stop: 01/06/19 14:14 Diphenhydramine HCl (Benadryl 50 Mg/Ml) 25 mg IVP Q8H PRN PRN Reason: Itching Stop: 01/10/19 02:17 Last Admin: 11/11/18 02:46 Dose: 25 mg Divalproex Sodium (Depakote Sprinkle) 500 mg PO BID [facility]; Protocol Stop: 01/12/19 16:59 Last Admin: 11/14/18 17:55 Dose: 500 mg Docusate Sodium (Colace) 100 mg PO BID [facility] Stop: 01/03/19 16:59 Last Admin: 11/14/18 17:55 Dose: 100 mg Ferrous Sulfate (Iron) 325 mg PO DAILY [facility] Stop: 01/04/19 08:59 Last Admin: 11/14/18 08:14 Dose: 325 mg Glucagon (Glucagen) 1 mg IM PRN PRN PRN Reason: Blood Glucose less than 70 Stop: 01/06/19 14:14 Haloperidol (Haldol) 5 mg PO BID [facility]; Protocol Stop: 01/03/19 16:59 Last Admin: 11/14/18 17:55 Dose: 5 mg Haloperidol Lactate (Haldol) 2 mg IM Q6HR PRN PRN Reason: Agitation Stop: 01/03/19 16:25 Last Admin: 11/11/18 23:01 Dose: 2 mg Heparin Sodium (Porcine) (Heparin) 5,000 units SUBQ Q12HR [facility] Stop: 01/11/19 20:59 Last Admin: 11/14/18 20:28 Dose: 5,000 units Hydroxyzine HCl (Atarax) 10 mg GT TID PRN; Protocol PRN Reason: PRURITUS Stop: 01/03/19 16:25 Sodium Chloride (Nacl 0.9%) 250 mls @ 10 mls/hr IV Q24H [facility] Stop: 01/07/19 08:44 Last Admin: 11/14/18 08:09 Dose: 10 mls/hr Insulin Human Lispro (Humalog Insulin Sliding Scale) 0 units SUBQ Q6HR [facility]; Protocol Stop: 01/06/19 17:59 Last Admin: 11/14/18 17:47 Dose: Not Given Lactobacillus Rhamnosus (Culturelle 15b) 1 each GT DAILY [facility] Stop: 01/04/19 08:59 Last Admin: 11/14/18 08:13 Dose: 1 each Lactulose (Cephulac) 30 gm PO Q6HR [facility] Stop: 01/03/19 17:59 Last Admin: 11/14/18 17:57 Dose: 30 gm Lorazepam (Ativan) 1 mg IVP Q6H PRN; Protocol PRN Reason: Agitation Stop: 01/04/19 11:20 Last Admin: 11/11/18 20:13 Dose: 1 mg Lorazepam (Ativan) 0.5 mg GT Q6HR PRN; Protocol PRN Reason: Anxiety Stop: 01/11/19 10:41 Magnesium Hydroxide (Milk Of Magnesia) 30 ml GT HS PRN PRN Reason: Constipation Stop: 01/03/19 16:25 Midodrine (Proamatine) 5 mg PO TID [facility] Stop: 01/03/19 20:59 Last Admin: 11/14/18 20:27 Dose: 5 mg Morphine Sulfate (Morphine) 1 mg IVP Q4HR PRN PRN Reason: Pain (Moderate) Stop: 01/11/19 10:46 Morphine Sulfate (Morphine) 2 mg IVP Q4HR PRN PRN Reason: Pain (Severe) Stop: 01/11/19 10:48 Pantoprazole Sodium (Protonix) 40 mg IVP DAILY [facility] Stop: 01/04/19 10:14 Last Admin: 11/14/18 08:12 Dose: 40 mg Pioglitazone HCl (Actos) 15 mg PO DAILY [facility] Stop: 01/04/19 08:59 Last Admin: 11/14/18 08:13 Dose: 15 mg Quetiapine Fumarate (Seroquel) 50 mg PO BID [facility]; Protocol Stop: 01/03/19 16:59 Last Admin: 11/14/18 17:55 Dose: 50 mg Sodium Phosphate (Fleet Enema) 135 ml RC Q48H PRN PRN Reason: IF DULCOLAX INEFFECTIVE Stop: 01/03/19 16:25 Temazepam (Restoril) 15 mg PO HS PRN; Protocol PRN Reason: Insomnia Stop: 01/11/19 10:48 Zolpidem Tartrate (Ambien) 5 mg GT HS [facility] Stop: 01/11/19 20:59 Last Admin: 11/14/18 20:28 Dose: 5 mg General: No acute distress HEENT: PERRLA, EOMI Neck: Supple Cardiovascular: Regular rate Lungs: Clear to auscultation Abdomen: Bowel sounds, Soft Neurological: Normal tone - Procedures Procedures: Procedures Procedure Code Date ASSISTANCE WITH RESPIRATORY VENTILATION, <24 HRS, CPAP [id number] 06/01/18 REMOVAL OF FEEDING DEVICE FROM STOMACH, EXTERNAL APPROACH [id number] 06/21/18 Assessment/Plan - Assessment Assessment: 1. Oropharyngeal Dysphagia 2. Significant aspiration 3. Protein calorie malnutrition -S/P 20f PEG TUBE PLACEMENT -PT TOLERATING TUBE FEEDS -CONTINUE WITH G TUBE CARE -CHECK GASTRIC RESIDUALS FREE WATER FLUSHES 50CC Q HOURS
[2018-11-15] MEDS: Lactulose 10 Gm/15 mL 30mL UDC PO SCH ×3 (00:34→11:37)
[2018-11-15] MEDS: INSULIN LISPRO SLIDING SCALE 100 UNITS/ML UNIT SUBQ SCH ×3 (00:39→11:37)
[2018-11-15 06:42] LABS: ANION GAP 11.6 (7.0-16.0); BUN - UREA NITROGEN 11 mg/dL (7-25); CALCIUM SERUM 8.7 mg/dL (8.6-10.3); CARBON DIOXIDE 27.7 mEq/L (21.0-31.0); CHLORIDE 103 mEq/L (98-107); CREATININE - SERUM 0.6 mg/dL (0.7-1.3); GFR AFRICAN-AMERICAN > 60.0 ml/min (>90); GFR NON AFRICAN-AMERICAN > 60.0 ml/min; GLUCOSE 93 mg/dL (70-105); MAGNESIUM 1.9 mg/dL (1.9-2.7); POTASSIUM SERUM 4.3 mEq/L (3.5-5.1); SODIUM SERUM 138 mEq/L (136-145)
--- NOTE | 2018-11-15 07:37 | Progress Notes ---
DATE: 11/15/2018 PSYCHIATRIC PROGRESS NOTE SUBJECTIVE: Chart reviewed and the patient interviewed. Also discussed the patient's condition with the staff and reviewed records and labs. The patient is still agitated and still has episodes of yelling and screaming according to staff. The patient also is restless. The patient also is still confused. Otherwise, the patient has no side effects of medications. ASSESSMENT: The patient is still psychotic and agitated. TREATMENT PLAN: Continue to monitor his behavior and his condition closely. Also, we will get Depakote blood level. Also, we will increase Seroquel to 75 mg b.i.d. and we will continue to monitor his behavior closely. JOB# [id number]
--- NOTE | 2018-11-15 07:44 | GI Progress Note ---
Subjective - Review of Systems Subjective: NO EVENTS Objective - Results Result Diagrams: 11/11/18 05:45 11/15/18 05:10 Recent Labs: Laboratory Last Values WBC 12.3 Th/cmm (4.8-10.8) H 11/11/18 05:45 RBC 5.02 Mil/cmm (4.30-5.70) 11/11/18 05:45 Hgb 14.3 gm/dL (12-16) 11/11/18 05:45 Hct 44.1 % (41.0-60) 11/11/18 05:45 MCV 87.8 fl (80-99) 11/11/18 05:45 MCH 28.4 pg (26.0-30.0) 11/11/18 05:45 MCHC Differential 32.3 pg (28.0-36.0) 11/11/18 05:45 RDW 15.4 % (11.5-20.0) 11/11/18 05:45 Plt Count 375 Th/cmm (150-400) 11/11/18 05:45 MPV 8.0 fl 11/11/18 05:45 Add Manual Diff YES 11/05/18 05:15 Neutrophils % 71.6 % (40.0-80.0) 11/11/18 05:45 Band Neutrophils % 1 % (0-10) 11/05/18 05:15 Lymphocytes % 14.9 % (20.0-50.0) L 11/11/18 05:45 Monocytes % 9.3 % (2.0-10.0) 11/11/18 05:45 Eosinophils % 3.5 % (0.0-5.0) 11/11/18 05:45 Basophils % 0.7 % (0.0-2.0) 11/11/18 05:45 Neutrophils (Manual) 85 % (40-80) H 11/05/18 05:15 Lymphocytes 6 % (20-50) L 11/05/18 05:15 Monocytes 8 % (2-10) 11/05/18 05:15 Eosinophils 0 % (0-5) 11/05/18 05:15 Basophils 0 % (0-3) 11/05/18 05:15 PT 10.1 SECONDS (9.5-11.5) 11/12/18 05:45 INR 0.97 (0.5-1.4) 11/12/18 05:45 Sodium 138 mEq/L (136-145) 11/15/18 05:10 Potassium 4.3 mEq/L (3.5-5.1) 11/15/18 05:10 Chloride 103 mEq/L (98-107) 11/15/18 05:10 Carbon Dioxide 27.7 mEq/L (21.0-31.0) 11/15/18 05:10 Anion Gap 11.6 (7.0-16.0) 11/15/18 05:10 BUN 11 mg/dL (7-25) 11/15/18 05:10 Creatinine 0.6 mg/dL (0.7-1.3) L 11/15/18 05:10 Est GFR ( Amer) > 60.0 ml/min (>90) 11/15/18 05:10 Est GFR (Non-Af Amer) > 60.0 ml/min 11/15/18 05:10 BUN/Creatinine Ratio 18.3 11/15/18 05:10 Glucose 93 mg/dL (70-105) 11/15/18 05:10 POC Glucose 95 MG/DL (70 - 105) 11/15/18 00:37 Calcium 8.7 mg/dL (8.6-10.3) 11/15/18 05:10 Phosphorus 4.0 mg/dL (2.5-5.0) 11/13/18 05:50 Magnesium 1.9 mg/dL (1.9-2.7) 11/15/18 05:10 Total Bilirubin 0.4 mg/dL (0.3-1.0) 11/11/18 05:45 AST 27 U/L (13-39) 11/11/18 05:45 ALT 25 U/L (7-52) 11/11/18 05:45 Alkaline Phosphatase 90 U/L (34-104) 11/11/18 05:45 Total Protein 7.2 gm/dL (6.0-8.3) 11/11/18 05:45 Albumin 3.9 gm/dL (4.2-5.5) L 11/11/18 05:45 Globulin 3.3 gm/dL 11/11/18 05:45 Albumin/Globulin Ratio 1.2 (1.0-1.8) 11/11/18 05:45 Prealbumin 12 mg/dL (10-36) 11/09/18 05:10 Triglycerides 111 mg/dL (<150) 11/09/18 05:10 Cholesterol 121 mg/dL (<200) 11/12/18 05:45 Urine Phosphorus <3.4 mg/dL (Not Estab.) 11/09/18 19:48 Ur Phosphorus 24 Hr mg/24 hr (400.0-1300.0) 11/09/18 19:48 Valproic Acid 49.2 ug/mL (50.0-100.0) L 11/15/18 05:10 Helicobacter pylori Ab NEGATIVE (NEGATIVE) 11/12/18 13:25 - Physical Exam Vitals and I&O: Vital Signs Temp 98.0 F 11/15/18 05:00 Pulse 78 11/15/18 05:00 Resp 18 11/15/18 05:00 BP 106/69 11/15/18 05:00 Pulse Ox 94 11/15/18 01:00 Intake & Output 11/14/18 11/15/18 11/15/18 18:59 06:59 18:59 Intake Total 1900 Balance 1900 Weight (lbs) 63.049 kg Intake: Oral 0 Tube Feeding 1300 Other 600 Other: # Voids 4 # Bowel Movements 0 Weight Source Bedscale Active Medications: Current Medications Acetaminophen (Tylenol) 650 mg PO Q6HR PRN PRN Reason: Mild Pain or Fever >101 Stop: 01/03/19 16:25 Acetaminophen (Tylenol Extra Strength) 1,000 mg PO Q8HR PRN PRN Reason: Pain (Moderate) Stop: 01/03/19 16:25 Albuterol/Ipratropium (Duoneb Neb) 3 ml HHN Q6HR PRN PRN Reason: Shortness of Breath or Wheeze Stop: 01/03/19 16:25 Last Admin: 11/12/18 15:25 Dose: 3 ml Ascorbic Acid (Vitamin C) 500 mg PO DAILY [facility] Stop: 01/04/19 08:59 Last Admin: 11/14/18 08:12 Dose: 500 mg Aspirin (Aspirin Chewable) 81 mg PO DAILY [facility] Stop: 01/04/19 08:59 Last Admin: 11/14/18 08:14 Dose: 81 mg Bisacodyl (Dulcolax 10 Mg Supp) 10 mg RC DAILY PRN PRN Reason: Constipation Stop: 01/03/19 16:25 Clonazepam (Klonopin) 0.5 mg PO BID PRN; Protocol PRN Reason: Agitation Stop: 01/11/19 16:59 Last Admin: 11/14/18 21:53 Dose: 0.5 mg Dextrose (D50w) 50 ml IVP PRN PRN PRN Reason: Blood Glucose less than 70 Stop: 01/06/19 14:14 Dextrose (Glutose 40%) 18.75 gm PO PRN PRN PRN Reason: Blood Glucose less than 70 Stop: 01/06/19 14:14 Diphenhydramine HCl (Benadryl 50 Mg/Ml) 25 mg IVP Q8H PRN PRN Reason: Itching Stop: 01/10/19 02:17 Last Admin: 11/11/18 02:46 Dose: 25 mg Divalproex Sodium (Depakote Sprinkle) 500 mg PO BID [facility]; Protocol Stop: 01/12/19 16:59 Last Admin: 11/14/18 17:55 Dose: 500 mg Docusate Sodium (Colace) 100 mg PO BID [facility] Stop: 01/03/19 16:59 Last Admin: 11/14/18 17:55 Dose: 100 mg Ferrous Sulfate (Iron) 325 mg PO DAILY [facility] Stop: 01/04/19 08:59 Last Admin: 11/14/18 08:14 Dose: 325 mg Glucagon (Glucagen) 1 mg IM PRN PRN PRN Reason: Blood Glucose less than 70 Stop: 01/06/19 14:14 Haloperidol (Haldol) 5 mg PO BID [facility]; Protocol Stop: 01/03/19 16:59 Last Admin: 11/14/18 17:55 Dose: 5 mg Haloperidol Lactate (Haldol) 2 mg IM Q6HR PRN PRN Reason: Agitation Stop: 01/03/19 16:25 Last Admin: 11/11/18 23:01 Dose: 2 mg Heparin Sodium (Porcine) (Heparin) 5,000 units SUBQ Q12HR [facility] Stop: 01/11/19 20:59 Last Admin: 11/14/18 20:28 Dose: 5,000 units Hydroxyzine HCl (Atarax) 10 mg GT TID PRN; Protocol PRN Reason: PRURITUS Stop: 01/03/19 16:25 Sodium Chloride (Nacl 0.9%) 250 mls @ 10 mls/hr IV Q24H [facility] Stop: 01/07/19 08:44 Last Admin: 11/14/18 08:09 Dose: 10 mls/hr Insulin Human Lispro (Humalog Insulin Sliding Scale) 0 units SUBQ Q6HR [facility]; Protocol Stop: 01/06/19 17:59 Last Admin: 11/15/18 05:32 Dose: Not Given Lactobacillus Rhamnosus (Culturelle 15b) 1 each GT DAILY [facility] Stop: 01/04/19 08:59 Last Admin: 11/14/18 08:13 Dose: 1 each Lactulose (Cephulac) 30 gm PO Q6HR [facility] Stop: 01/03/19 17:59 Last Admin: 11/15/18 05:32 Dose: 30 gm Lorazepam (Ativan) 1 mg IVP Q6H PRN; Protocol PRN Reason: Agitation Stop: 01/04/19 11:20 Last Admin: 11/15/18 00:26 Dose: 1 mg Lorazepam (Ativan) 0.5 mg GT Q6HR PRN; Protocol PRN Reason: Anxiety Stop: 01/11/19 10:41 Magnesium Hydroxide (Milk Of Magnesia) 30 ml GT HS PRN PRN Reason: Constipation Stop: 01/03/19 16:25 Midodrine (Proamatine) 5 mg PO TID [facility] Stop: 01/03/19 20:59 Last Admin: 11/14/18 20:27 Dose: 5 mg Morphine Sulfate (Morphine) 1 mg IVP Q4HR PRN PRN Reason: Pain (Moderate) Stop: 01/11/19 10:46 Morphine Sulfate (Morphine) 2 mg IVP Q4HR PRN PRN Reason: Pain (Severe) Stop: 01/11/19 10:48 Pantoprazole Sodium (Protonix) 40 mg IVP DAILY [facility] Stop: 01/04/19 10:14 Last Admin: 11/14/18 08:12 Dose: 40 mg Pioglitazone HCl (Actos) 15 mg PO DAILY [facility] Stop: 01/04/19 08:59 Last Admin: 11/14/18 08:13 Dose: 15 mg Quetiapine Fumarate (Seroquel) 75 mg PO BID [facility]; Protocol Stop: 01/14/19 08:59 Sodium Phosphate (Fleet Enema) 135 ml RC Q48H PRN PRN Reason: IF DULCOLAX INEFFECTIVE Stop: 01/03/19 16:25 Temazepam (Restoril) 15 mg PO HS PRN; Protocol PRN Reason: Insomnia Stop: 01/11/19 10:48 Zolpidem Tartrate (Ambien) 5 mg GT HS [facility] Stop: 01/11/19 20:59 Last Admin: 11/14/18 20:28 Dose: 5 mg General: No acute distress HEENT: PERRLA, EOMI Neck: Supple Cardiovascular: Regular rate Lungs: Clear to auscultation Abdomen: Bowel sounds, Soft Neurological: Normal tone - Procedures Procedures: Procedures Procedure Code Date ASSISTANCE WITH RESPIRATORY VENTILATION, <24 HRS, CPAP [id number] 06/01/18 REMOVAL OF FEEDING DEVICE FROM STOMACH, EXTERNAL APPROACH [id number] 06/21/18 Assessment/Plan - Assessment Assessment: 58 YO MALE WITH DYSPHAGIA S/P PEG CHIP TUBE FEEDS 1.CONT TUBE FEEDS 2.CONT SUPP CARE 3.WILL SEE NEEDED; CALL IF QUESTIONS
[2018-11-15] MEDS: Lactobacillus Rhamnosus GG 15 Billion CFU CAP.SPRINK GT SCH (09:19)
[2018-11-15] MEDS: Aspirin 81mg Chewable Tab PO SCH (09:19)
[2018-11-15] MEDS: Ferrous Sulfate 325 MG TAB PO SCH (09:19)
[2018-11-15] MEDS: Sodium Chloride 0.9% 250 ML IV SCH (09:21)
--- NOTE | 2018-11-15 10:35 | Internal Medicine Prog Note ---
Internal Medicine Subjective - Subjective Service Date: 11/15/18 Patient seen and examined:: chart reviewed Patient is:: awake, verbal, agitated, confused, other (continues to be easily aggitated and in irritated mood.) Patient Complaints of:: other (S/p PEG Placement.) Per staff patient has:: no adverse event, no episodes of fall, poor oral intake , agitated, confused Internal Medicine Objective - Results Result Diagrams: 11/11/18 05:45 11/15/18 05:10 Recent Labs: Laboratory Last Values WBC 12.3 Th/cmm (4.8-10.8) H 11/11/18 05:45 RBC 5.02 Mil/cmm (4.30-5.70) 11/11/18 05:45 Hgb 14.3 gm/dL (12-16) 11/11/18 05:45 Hct 44.1 % (41.0-60) 11/11/18 05:45 MCV 87.8 fl (80-99) 11/11/18 05:45 MCH 28.4 pg (26.0-30.0) 11/11/18 05:45 MCHC Differential 32.3 pg (28.0-36.0) 11/11/18 05:45 RDW 15.4 % (11.5-20.0) 11/11/18 05:45 Plt Count 375 Th/cmm (150-400) 11/11/18 05:45 MPV 8.0 fl 11/11/18 05:45 Add Manual Diff YES 11/05/18 05:15 Neutrophils % 71.6 % (40.0-80.0) 11/11/18 05:45 Band Neutrophils % 1 % (0-10) 11/05/18 05:15 Lymphocytes % 14.9 % (20.0-50.0) L 11/11/18 05:45 Monocytes % 9.3 % (2.0-10.0) 11/11/18 05:45 Eosinophils % 3.5 % (0.0-5.0) 11/11/18 05:45 Basophils % 0.7 % (0.0-2.0) 11/11/18 05:45 Neutrophils (Manual) 85 % (40-80) H 11/05/18 05:15 Lymphocytes 6 % (20-50) L 11/05/18 05:15 Monocytes 8 % (2-10) 11/05/18 05:15 Eosinophils 0 % (0-5) 11/05/18 05:15 Basophils 0 % (0-3) 11/05/18 05:15 PT 10.1 SECONDS (9.5-11.5) 11/12/18 05:45 INR 0.97 (0.5-1.4) 11/12/18 05:45 Sodium 138 mEq/L (136-145) 11/15/18 05:10 Potassium 4.3 mEq/L (3.5-5.1) 11/15/18 05:10 Chloride 103 mEq/L (98-107) 11/15/18 05:10 Carbon Dioxide 27.7 mEq/L (21.0-31.0) 11/15/18 05:10 Anion Gap 11.6 (7.0-16.0) 11/15/18 05:10 BUN 11 mg/dL (7-25) 11/15/18 05:10 Creatinine 0.6 mg/dL (0.7-1.3) L 11/15/18 05:10 Est GFR ( Amer) > 60.0 ml/min (>90) 11/15/18 05:10 Est GFR (Non-Af Amer) > 60.0 ml/min 11/15/18 05:10 BUN/Creatinine Ratio 18.3 11/15/18 05:10 Glucose 93 mg/dL (70-105) 11/15/18 05:10 POC Glucose 95 MG/DL (70 - 105) 11/15/18 00:37 Calcium 8.7 mg/dL (8.6-10.3) 11/15/18 05:10 Phosphorus 4.0 mg/dL (2.5-5.0) 11/13/18 05:50 Magnesium 1.9 mg/dL (1.9-2.7) 11/15/18 05:10 Total Bilirubin 0.4 mg/dL (0.3-1.0) 11/11/18 05:45 AST 27 U/L (13-39) 11/11/18 05:45 ALT 25 U/L (7-52) 11/11/18 05:45 Alkaline Phosphatase 90 U/L (34-104) 11/11/18 05:45 Total Protein 7.2 gm/dL (6.0-8.3) 11/11/18 05:45 Albumin 3.9 gm/dL (4.2-5.5) L 11/11/18 05:45 Globulin 3.3 gm/dL 11/11/18 05:45 Albumin/Globulin Ratio 1.2 (1.0-1.8) 11/11/18 05:45 Prealbumin 12 mg/dL (10-36) 11/09/18 05:10 Triglycerides 111 mg/dL (<150) 11/09/18 05:10 Cholesterol 121 mg/dL (<200) 11/12/18 05:45 Urine Phosphorus <3.4 mg/dL (Not Estab.) 11/09/18 19:48 Ur Phosphorus 24 Hr mg/24 hr (400.0-1300.0) 11/09/18 19:48 Valproic Acid 49.2 ug/mL (50.0-100.0) L 11/15/18 05:10 Helicobacter pylori Ab NEGATIVE (NEGATIVE) 11/12/18 13:25 - Physical Exam Vitals and I&O: Vital Signs Temp 97.7 F 11/15/18 09:00 Pulse 72 11/15/18 09:00 Resp 19 11/15/18 09:00 BP 107/63 11/15/18 09:00 Pulse Ox 97 11/15/18 09:00 Intake & Output 11/14/18 11/15/18 11/15/18 18:59 06:59 18:59 Intake Total 1900 250 Balance 1900 250 Weight (lbs) 63.049 kg Intake: Intake, IV Amount 250 Sodium Chloride 0.9% 250 250 ml @ 10 mls/hr IV Q24H [facility] Rx#:[id number] Oral 0 Tube Feeding 1300 Other 600 Other: # Voids 4 # Bowel Movements 0 Weight Source Bedscale Active Medications: Current Medications Acetaminophen (Tylenol) 650 mg PO Q6HR PRN PRN Reason: Mild Pain or Fever >101 Stop: 01/03/19 16:25 Acetaminophen (Tylenol Extra Strength) 1,000 mg PO Q8HR PRN PRN Reason: Pain (Moderate) Stop: 01/03/19 16:25 Albuterol/Ipratropium (Duoneb Neb) 3 ml HHN Q6HR PRN PRN Reason: Shortness of Breath or Wheeze Stop: 01/03/19 16:25 Last Admin: 11/12/18 15:25 Dose: 3 ml Ascorbic Acid (Vitamin C) 500 mg PO DAILY [facility] [place] Stop: 01/04/19 08:59 Last Admin: 11/15/18 09:18 Dose: 500 mg Aspirin (Aspirin Chewable) 81 mg PO DAILY [facility] Stop: 01/04/19 08:59 Last Admin: 11/15/18 09:19 Dose: 81 mg Bisacodyl (Dulcolax 10 Mg Supp) 10 mg RC DAILY PRN PRN Reason: Constipation Stop: 01/03/19 16:25 Clonazepam (Klonopin) 0.5 mg PO BID PRN; Protocol PRN Reason: Agitation Stop: 01/11/19 16:59 Last Admin: 11/14/18 21:53 Dose: 0.5 mg Dextrose (D50w) 50 ml IVP PRN PRN PRN Reason: Blood Glucose less than 70 Stop: 01/06/19 14:14 Dextrose (Glutose 40%) 18.75 gm PO PRN PRN PRN Reason: Blood Glucose less than 70 Stop: 01/06/19 14:14 Diphenhydramine HCl (Benadryl 50 Mg/Ml) 25 mg IVP Q8H PRN PRN Reason: Itching Stop: 01/10/19 02:17 Last Admin: 11/11/18 02:46 Dose: 25 mg Divalproex Sodium (Depakote Sprinkle) 500 mg PO BID [facility]; Protocol Stop: 01/12/19 16:59 Last Admin: 11/15/18 09:20 Dose: 500 mg Docusate Sodium (Colace) 100 mg PO BID [facility] [place] Stop: 01/03/19 16:59 Last Admin: 11/15/18 09:18 Dose: 100 mg Ferrous Sulfate (Iron) 325 mg PO DAILY [facility] Stop: 01/04/19 08:59 Last Admin: 11/15/18 09:19 Dose: 325 mg Glucagon (Glucagen) 1 mg IM PRN PRN PRN Reason: Blood Glucose less than 70 Stop: 01/06/19 14:14 Haloperidol (Haldol) 5 mg PO BID [facility]; Protocol Stop: 01/03/19 16:59 Last Admin: 11/15/18 09:19 Dose: 5 mg Haloperidol Lactate (Haldol) 2 mg IM Q6HR PRN PRN Reason: Agitation Stop: 01/03/19 16:25 Last Admin: 11/11/18 23:01 Dose: 2 mg Heparin Sodium (Porcine) (Heparin) 5,000 units SUBQ Q12HR [facility] Stop: 01/11/19 20:59 Last Admin: 11/15/18 09:20 Dose: 5,000 units Hydroxyzine HCl (Atarax) 10 mg GT TID PRN; Protocol PRN Reason: PRURITUS Stop: 01/03/19 16:25 Sodium Chloride (Nacl 0.9%) 250 mls @ 10 mls/hr IV Q24H [facility] Stop: 01/07/19 08:44 Last Admin: 11/15/18 09:21 Dose: 10 mls/hr Insulin Human Lispro (Humalog Insulin Sliding Scale) 0 units SUBQ Q6HR [facility]; Protocol Stop: 01/06/19 17:59 Last Admin: 11/15/18 05:32 Dose: Not Given Lactobacillus Rhamnosus (Culturelle 15b) 1 each GT DAILY [facility] [place] Stop: 01/04/19 08:59 Last Admin: 11/15/18 09:19 Dose: 1 each Lactulose (Cephulac) 30 gm PO Q6HR [facility] Stop: 01/03/19 17:59 Last Admin: 11/15/18 05:32 Dose: 30 gm Lorazepam (Ativan) 1 mg IVP Q6H PRN; Protocol PRN Reason: Agitation Stop: 01/04/19 11:20 Last Admin: 11/15/18 00:26 Dose: 1 mg Lorazepam (Ativan) 0.5 mg GT Q6HR PRN; Protocol PRN Reason: Anxiety Stop: 01/11/19 10:41 Magnesium Hydroxide (Milk Of Magnesia) 30 ml GT HS PRN PRN Reason: Constipation Stop: 01/03/19 16:25 Midodrine (Proamatine) 5 mg PO TID [facility] Stop: 01/03/19 20:59 Last Admin: 11/15/18 09:19 Dose: 5 mg Morphine Sulfate (Morphine) 1 mg IVP Q4HR PRN PRN Reason: Pain (Moderate) Stop: 01/11/19 10:46 Morphine Sulfate (Morphine) 2 mg IVP Q4HR PRN PRN Reason: Pain (Severe) Stop: 01/11/19 10:48 Pantoprazole Sodium (Protonix) 40 mg IVP DAILY [facility] Stop: 01/04/19 10:14 Last Admin: 11/15/18 09:20 Dose: 40 mg Pioglitazone HCl (Actos) 15 mg PO DAILY [facility] Stop: 01/04/19 08:59 Last Admin: 11/15/18 09:18 Dose: 15 mg Quetiapine Fumarate (Seroquel) 75 mg PO BID [facility]; Protocol Stop: 01/14/19 08:59 Last Admin: 11/15/18 09:19 Dose: 75 mg Sodium Phosphate (Fleet Enema) 135 ml RC Q48H PRN PRN Reason: IF DULCOLAX INEFFECTIVE Stop: 01/03/19 16:25 Temazepam (Restoril) 15 mg PO HS PRN; Protocol PRN Reason: Insomnia Stop: 01/11/19 10:48 Zolpidem Tartrate (Ambien) 5 mg GT HS [facility] Stop: 01/11/19 20:59 Last Admin: 11/14/18 20:28 Dose: 5 mg General: lethargic, NAD, other (Aggressive mood.) HEENT: NC/AT, PERRLA Neck: Supple, No JVD Lungs: other (aspiration.) Cardiovascular: Normal S1, Normal S2 Abdomen: soft, non-distended, +GT Extremities: other (Right upper paralysis.) Neurological: no change, disorganized - Procedures Procedures: Procedures Procedure Code Date ASSISTANCE WITH RESPIRATORY VENTILATION, <24 HRS, CPAP [id number] 06/01/18 REMOVAL OF FEEDING DEVICE FROM STOMACH, EXTERNAL APPROACH [id number] 06/21/18 Internal Medicine Assmt/Plan - Assessment Assessment: Irritable mood Agitated Confused Aspiration Right upper extremity paralysis Htn Asthma Copd Dyslipidemia Schizophrenia Bipolar Disorder Mild antral gastritis Dysphagia/S/p PEG Placement Moderate Protein- Calorie Malnutrition - Plan Plan: Continue to Monitor patient closely Monitor vitals, Continue Bp meds as directed Continue present meds as directed Followup with GI PEG care Advance tube feeds per Dietary recommendations Aspiration precaution Followup with Dr. Mcleod for Psych Management Fall precaution Continue present care management Nutritional Asmnt/Malnutr-PDOC - Dietary Evaluation Malnutrition Findings (Please click <Entered> for more info): Nutritional Asmnt/Malnutrition Start: 11/08/18 15: 37 Text: Status: Complete Freq: Protocol: Document 11/08/18 15:37 [email or web address] (Rec: 11/08/18 16:03 [email or web address] [email or web address]) Nutritional Asmnt/Malnutrition Patient General Information Nutritional Screening Moderate Risk Diagnosis dysphagia Pertinent Medical Hx/Surgical Hx right upper extremity paralysis, HTN, asthma, COPD, dyslipidemia, schizophrenia, bipolar disorder Subjective Information Pt seen in lasha-chair, confused with unclear speech, has 1:1 sitter. Per nurse note , pt failed swallow eval on and ST recommended NPO with alternative nutrition route. Waiting for PEG consent. Pt is now on PPN. Current Diet Order/ Nutrition Support Dex 8%, AA 4% at 90ml/hr, providing 933kcal, 86g protein Pertinent Medications vit C, colace, iron, humalog, culturelle, seroquel, nacl 0.9 % Pertinent Labs 11/08 BUN 4, Cr 0.5, glucose 128, POC 100-112, Ca 8.4, Mg 1 .6, Alb 3.3 Nutritional Hx/Data Height 1.65 m Height (Calculated Centimeters) 165.1 Current Weight (lbs) 77.564 kg Weight (Calculated Kilograms) 77.6 Weight (Calculated Grams) 68959.3 Jackson Body Weight 136 Body Mass Index (BMI) 28.4 Weight Status Overweight GI Symptoms GI Symptoms None Last BM 11/05 Difficult in: None Skin Integrity/Comment: bruise to posterior head Current %PO Negligible < 25% Estimated Nutritional Goals BEE in Kcals: Using Current wt Calories/Kcals/Kg 23-27 Kcals Calculated 0016-0319 Protein: Using Current wt Protein g/k Protein Calculated 78 Fluid: ml 1794-2106ml (1ml/kcal) Nutritional Problem 2. Problem Problem altered nutrition labs Etiology electrolytes imbalance Signs/Symptoms: mg 1.6, Ca 8.4 1. Problem Problem altered GI function Etiology pt failed swallow eval Signs/Symptoms: pt on PPN and need for PEG Malnutrition Alert Is there a minimum of two criteria No selected? Query Text:Check all the applicable criteria. A minimum of two criteria are recommended for diagnosis of either severe or non-severe malnutrition. Malnutrition Related to Morbid Obesity Malnutrition related to morbid obesity No Intervention/Recommendation Comments 1. Recommend PPN to meet 1794kcal and 78g protein. Recomendation sent to pharmacy . 2. Initiat TF after PEG placement. 3. Monitor PO intake, wt, labs and skin integrity 4. F/U as high risk in 2-3 days Expected Outcomes/Goals Expected Outcomes/Goals 1. Pt to meet at least 90% of nutritional needs via nutrition support with tolerance 2. Wt stability, skin to remain intact, labs to approach WNL.
[2018-11-15] MEDS ORDERED: Docusate Sodium 100 mg/10 mL UD GT SCH (17:00)
== END 2018-11-15 17:15 | DRG 871 ==
LOC: MSI 15:51 → TELE 11-06 20:45 → MSI 11-08 11:51
PROVIDERS: ADMIT Internal Medicine; ATTEND Internal Medicine
PROC: 0DH68UZ Insertion of Feeding Device into Stomach, Via Natural or Artificial Opening Endoscopic (ICD-10-PCS; principal; 2018-11-12)
PROC: 0DB68ZX Excision of Stomach, Via Natural or Artificial Opening Endoscopic, Diagnostic (ICD-10-PCS; 2018-11-12)
DX: A41.9 Sepsis, unspecified organism (principal); R53.2 Functional quadriplegia; E44.0 Moderate protein-calorie malnutrition; R13.10 Dysphagia, unspecified; I10 Essential (primary) hypertension; J44.9 Chronic obstructive pulmonary disease, unspecified; F31.9 Bipolar disorder, unspecified; F29 Unspecified psychosis not due to a substance or known physiological condition; F20.9 Schizophrenia, unspecified; E78.5 Hyperlipidemia, unspecified; G83.9 Paralytic syndrome, unspecified; K29.70 Gastritis, unspecified, without bleeding; Z68.23 Body mass index [BMI] 23.0-23.9, adult
CPT/HCPCS: 36415-UA; 71045-TC; 74220-TC; 80048-TC; 80053-TC; 80164-TC; 82465-TC; 82948-90; 83735-TC; 84100-TC; 84105-90; 84134-90; 84478-TC; 85007-TC; 85025-TC; 85610-TC; 87338-TC; 90799; 94760; C9113; J0610; J0690; J1200; J1630; J1644; J2060; J2270; J3475; J3480; J7030; J7131; X4304; X6598; Z7506; Z7610